=== PATIENT | female | born 1935 | race Caucasian/White ===

== ENCOUNTER → 2020-08-31 13:14 | Outpatient (BNVA) | payer MEDICARE, SELFPAY | PROVIDERS: PCP Internal Medicine; Visit Provider Orthopaedic Surgery | DX: M17.12 Unilateral primary osteoarthritis, left knee (principal) | CPT/HCPCS: 99212 ==

== ENCOUNTER 2020-09-30 11:03 | Outpatient (REF) | payer MEDICARE, SELFPAY ==
[2020-09-30 13:36] LABS: MANUAL DIFF FLAG NO
[2020-09-30 13:51] LABS: Basophils Absolute Auto 0.1 X10*3/uL (0.0-0.2); Basophils Percent Auto 0.6 % (0-2); Eosinophils Absolute Auto 0.4 X10*3/uL (0.0-0.4); Eosinophils Percent Auto 3.4 % (0-4); Hematocrit 31.9 % (37-47); Hemoglobin 8.6 g/dl (12.0-16.0); Imm Gran Abs Auto 0.05 X10*3/uL (0.00-0.03); Imm Gran Pct Auto 0.5 % (0.0-0.4); Lymphocytes Absolute Auto 1.7 X10*3/uL (1.2-4.9); Lymphocytes Percent Auto 15.6 % (20-40); Mean Corpuscular Hemoglobin 19.9 pg (27.0-33.0); Mean Corpuscular Volume 73.8 fL (80-98); Mean Platelet Volume 10.8 fL (9.4-12.3); Monocytes Absolute Auto 0.7 X10*3/uL (0.1-1.2); Monocytes Percent Auto 6.5 % (2-11); Neutrophils Absolute Auto 7.8 X10*3/uL (2.0-8.3); Neutrophils Percent Auto 73.4 % (45-73); Platelet Count 277 X10*3/uL (160-400); Red Blood Count 4.32 X10*6/uL (4.20-5.50); Red Cell Distribution Width 19.3 % (11.0-16.0); White Blood Count 10.6 X10*3/uL (4.8-10.8)
[2020-09-30 13:58] LABS: Estimated Average Glucose 111 mg/dL; Hemoglobin A1c % 5.5 %
[2020-09-30 14:05] LABS: Glucose Urine UA NEG (NEG); Leukocyte Esterase Urine TRACE (NEG); Nitrite Urine NEG (NEG); PH 6.5 (5.0-8.0); Specific Gravity - Urine 1.015 (1.005-1.025); UACC Culture Trigger YES; Urine Blood NEG (NEG); Urine Ketones NEG (NEG); Urine Protein 1+ MG/DL (NEG-TRACE)
[2020-09-30 14:23] LABS: Appearance Urine CLEAR; Color Urine YELLOW
[2020-09-30 14:35] LABS: Alanine Aminotransferase 10 U/L (0-31); Albumin Level 3.7 g/dL (3.5-5.0); Alkaline Phosphatase 81 U/L (39-117); Anion Gap 13 (12-20); Aspartate Amino Transferase 13 U/L (5-31); Bilirubin Total 0.6 mg/dL (0.0-1.0); Blood Urea Nitrogen 31 mg/dL (9-16); Calcium 9.4 mg/dL (8.4-10.2); Carbon Dioxide 29 mmol/L (22-29); Chloride 104 mmol/L (96-108); Cholesterol 145 mg/dL; Estimated Glomerular Filt Rate 50; Glucose Fasting 103 mg/dL (60-99); HDL Cholesterol 35 mg/dL; LDL Cholesterol Calculated 75 mg/dl; Potassium 4.6 mmol/L (3.3-5.1); Sodium 141 mmol/L (135-145); Total Protein 6.7 g/dL (6.5-8.0); Triglycerides 175 mg/dL
[2020-09-30 14:39] LABS: Free T4 (Free Thyroxine) 0.99 ng/dL (0.71-1.85); Thyroid Stimulating Hormone 4.13 uIU/mL (0.32-4.0); Vitamin D 25-OH Total 43.5 ng/mL (>30)
[2020-09-30 14:47] LABS: RBC Urine 0 /HPF (0); Renal Epithelial Cells Urine TRACE /LPF; Squamous Epithelial Cell Urine 1+ /LPF
== END 2020-09-30 11:04 | disposition home or self-care (01) ==
LOC: HO.10HDL 11:03
PROVIDERS: Visit Provider Internal Medicine
DX: I12.9 Hypertensive chronic kidney disease with stage 1 through stage 4 chronic kidney disease, or unspecified chronic kidney disease (principal); N18.30 Chronic kidney disease, stage 3 unspecified; E55.9 Vitamin D deficiency, unspecified; E03.9 Hypothyroidism, unspecified; D64.9 Anemia, unspecified; F17.200 Nicotine dependence, unspecified, uncomplicated; I25.10 Atherosclerotic heart disease of native coronary artery without angina pectoris; J30.9 Allergic rhinitis, unspecified; K21.9 Gastro-esophageal reflux disease without esophagitis; E78.00 Pure hypercholesterolemia, unspecified; R73.01 Impaired fasting glucose
CPT/HCPCS: 36415; 80053; 80061; 81001; 81003; 82306; 83036; 84439; 84443; 85025; 87086; 87147

== ENCOUNTER → 2020-10-10 15:22 | Outpatient (BNVA) | payer MEDICARE, SELFPAY | PROVIDERS: PCP Internal Medicine; Visit Provider Internal Medicine Cardiovascular Disease | DX: Z01.810 Encounter for preprocedural cardiovascular examination (principal); R09.89 Other specified symptoms and signs involving the circulatory and respiratory systems; I10 Essential (primary) hypertension; I25.10 Atherosclerotic heart disease of native coronary artery without angina pectoris; Z72.0 Tobacco use | CPT/HCPCS: 93005; 99202 ==

== ENCOUNTER → 2020-10-18 10:09 | Outpatient (REF) | payer MEDICARE, SELFPAY ==
--- NOTE | ~2020-10-18 | NM_ITS ---
Myocardial perfusion study Indication: Preoperative cardia vascular stratification Technique: The patient was brought in for a Lexiscan perfusion study on 10/18/2020. Patient performed low-level exercise and was injected 0.4 mg of Lexiscan intravenously. Within a minute of injection, 30 mCi of sestamibi was given intravenously. Images were obtained using the SPECT gamma camera interlaced with the gating device. Images were obtained in supine position. Resting perfusion study was performed on 10/19/2020. Patient was administered 30 mCi of sestamibi intravenously at rest. Images were then obtained in supine position. Images obtained with and without CT attenuation. Total DLP 79 mGy-cm. Images were processed with the software and compared side to side in short axis, horizontal long axis and vertical long axis views. Findings: The stress perfusion study showed non attenuated images show normal uptake of radiotracer in all segments of LV myocardium. Attenuation corrected images show minimally reduced uptake in the apex of the LV myocardium.. The gated study shows normal LV systolic function with calculated LVEF of 67%. LV cavity is normal size. The gated study shows normal systolic wall thickening and contraction of segments. Resting study shows no change in perfusion pattern compared to stress perfusion study. Gating at rest reveals normal systolic wall motion with ejection fraction at 61%. The findings are consistent with normal myocardial perfusion. NM/NM татьяна perf SPECT rest & str Impression: 1. Myocardial perfusion imaging study shows normal myocardial perfusion 2. Gated LVEF is 67% 3. Transient ischemic dilatation not present EKG is nondiagnostic for ischemia
--- NOTE | 2020-10-18 10:12 | CA_ITS ---
Acquisition Time: 2020-10-18 10:35:01 Total Exercise Time: 00:02:00 Test Indications: Screening for CAD Medications: Protocol: LEXISCAN Max HR: 080 BPM 59% of Pred: 135 BPM Max BP: 130/070 mmHG Max Work Load: 1.0 METS Pharmacological stress test using Lexiscan while sitting and kicking her feet. Pt tolerated well, however report to have thightness in her chest 2/10 5 min 23 sec in recovery . Sx reversed with Aminophyline 75 mg IV. EKG without arrhythmias, non-diagnostic for ischemia. Nuclear images to follow. Normotensive response to test. Test reviewed with Dr. Brothers Referred By: Walter Jason Overread By:
== END ==
LOC: HO.CARD 10:09
PROVIDERS: Visit Provider Internal Medicine Cardiovascular Disease
DX: Z01.810 Encounter for preprocedural cardiovascular examination (principal)
CPT/HCPCS: 78452; 93017; A9500; J0280; J2785

== ENCOUNTER 2020-10-19 12:15 | Outpatient (REF) | payer MEDICARE, SELFPAY ==
--- NOTE | ~2020-10-19 | US_ITS ---
EXAMINATION: US EXTRACRANIAL CAROTID DUPLEX, BILATERAL CLINICAL INFORMATION: Carotid bruit. COMPARISON: None TECHNIQUE: Real-time ultrasound and Doppler techniques (integrating B-mode 2-D vascular images, Doppler spectral analysis and color-flow Doppler imaging) were utilized to interrogate the extracranial carotid arteries, the vertebral arteries and proximal subclavian arteries bilaterally. The degree of stenosis is determined by criteria similar to NASCET. FINDINGS: Right Side: 1. There is hard atherosclerotic plaque seen in the bifurcation/proximal ICA region. There is mild tortuosity of common and internal carotid arteries. 2. The common carotid artery PSV proximally is 106 cm/s and distally 105 cm/s. 3. The proximal internal carotid artery velocities are 64.2 cm/s systolic and 16.5 cm/s diastolic. 4. The proximal external carotid artery PSV is 64.9 cm/s. 5. The vertebral artery shows 83.4 flow. 6. The subclavian artery waveforms are normal. Left Side: 1. There is hard atherosclerotic plaque seen in the bifurcation/proximal ICA region. There is mild tortuosity of common and internal carotid arteries. 2. The common carotid artery PSV proximally is 105 cm/s and distally 77.1 cm/s. 3. The proximal internal carotid artery velocities are 132 cm/s systolic and 21.7 cm/s diastolic. 4. The proximal external carotid artery PSV is 119 cm/s. 5. The vertebral artery shows antegrade flow. 6. The subclavian artery waveforms are normal. US/US carotid duplex BI IMPRESSION: 1. RIGHT: 0-49% range stenosis. 2. LEFT: 50-79% range stenosis. 3. There is normal antegrade flow seen in both vertebral arteries.
== END 2020-10-19 12:16 | disposition home or self-care (01) ==
LOC: HO.US 12:15
PROVIDERS: Visit Provider Internal Medicine Cardiovascular Disease
DX: R09.89 Other specified symptoms and signs involving the circulatory and respiratory systems (principal)
CPT/HCPCS: 93880

== ENCOUNTER → 2020-12-07 14:41 | Outpatient (BNVA) | payer MEDICARE, SELFPAY | PROVIDERS: PCP Internal Medicine; Visit Provider Internal Medicine Cardiovascular Disease | DX: Z01.810 Encounter for preprocedural cardiovascular examination (principal); I12.9 Hypertensive chronic kidney disease with stage 1 through stage 4 chronic kidney disease, or unspecified chronic kidney disease; N18.32 Chronic kidney disease, stage 3b; I25.10 Atherosclerotic heart disease of native coronary artery without angina pectoris; E78.00 Pure hypercholesterolemia, unspecified | CPT/HCPCS: 99212 ==

== ENCOUNTER 2020-12-16 10:35 | Outpatient (REF) | payer MEDICARE, SELFPAY ==
[2020-12-16 11:53] LABS: Basophils Absolute Auto 0.1 X10*3/uL (0.0-0.2); Imm Gran Abs Auto 0.04 X10*3/uL (0.00-0.03); Imm Gran Pct Auto 0.4 % (0.0-0.4); MANUAL DIFF FLAG SCAN; Mean Corpuscular Volume 84.8 fL (80-98); Red Cell Distribution Width 26.8 % (11.0-16.0); SCAN SMEAR FLAG 1
[2020-12-16 11:56] LABS: Basophils Percent Auto 0.4 % (0-2); Eosinophils Absolute Auto 0.3 X10*3/uL (0.0-0.4); Eosinophils Percent Auto 2.8 % (0-4); Hematocrit 41.8 % (37-47); Hemoglobin 11.7 g/dl (12.0-16.0); Lymphocytes Absolute Auto 1.5 X10*3/uL (1.2-4.9); Lymphocytes Percent Auto 13.6 % (20-40); Mean Corpuscular Hemoglobin 23.7 pg (27.0-33.0); Mean Platelet Volume 10.7 fL (9.4-12.3); Monocytes Absolute Auto 0.7 X10*3/uL (0.1-1.2); Monocytes Percent Auto 6.5 % (2-11); Neutrophils Absolute Auto 8.5 X10*3/uL (2.0-8.3); Neutrophils Percent Auto 76.3 % (45-73); Red Blood Count 4.93 X10*6/uL (4.20-5.50); White Blood Count 11.1 X10*3/uL (4.8-10.8)
[2020-12-16 11:58] LABS: PLT ABN DIST 1
[2020-12-16 12:23] LABS: SLIDE REVIEW VERIFIED
== END 2020-12-16 10:36 | disposition home or self-care (01) ==
LOC: HO.10HDL 10:35
PROVIDERS: Visit Provider Internal Medicine
DX: D50.8 Other iron deficiency anemias (principal)
CPT/HCPCS: 36415; 85025

== ENCOUNTER 2021-03-01 10:38 | Outpatient (REF) | payer MEDICARE, SELFPAY ==
[2021-03-01 13:37] LABS: Alanine Aminotransferase 10 U/L (0-31); Albumin Level 3.8 g/dL (3.5-5.0); Alkaline Phosphatase 72 U/L (39-117); Anion Gap 16 (12-20); Aspartate Amino Transferase 16 U/L (5-31); Bilirubin Total 0.4 mg/dL (0.0-1.0); Blood Urea Nitrogen 28 mg/dL (9-16); Calcium 10.2 mg/dL (8.4-10.2); Carbon Dioxide 29 mmol/L (22-29); Chloride 101 mmol/L (96-108); Estimated Glomerular Filt Rate 38; Glucose Random 120 mg/dL (60-115); Sodium 142 mmol/L (135-145)
== END 2021-03-01 10:39 | disposition home or self-care (01) ==
LOC: HO.10HDL 10:38
PROVIDERS: Visit Provider Internal Medicine
DX: N18.32 Chronic kidney disease, stage 3b (principal); I12.9 Hypertensive chronic kidney disease with stage 1 through stage 4 chronic kidney disease, or unspecified chronic kidney disease
CPT/HCPCS: 36415; 80053

== ENCOUNTER 2021-05-11 11:27 | Outpatient (REF) | payer MEDICARE, SELFPAY ==
[2021-05-11 14:19] LABS: MANUAL DIFF FLAG NO
[2021-05-11 14:22] LABS: Basophils Percent Auto 0.5 % (0-2); Eosinophils Absolute Auto 0.4 X10*3/uL (0.0-0.4); Eosinophils Percent Auto 4.3 % (0-4); Hematocrit 45.4 % (37-47); Hemoglobin 14.5 g/dl (12.0-16.0); Imm Gran Abs Auto 0.02 X10*3/uL (0.00-0.03); Imm Gran Pct Auto 0.2 % (0.0-0.4); Lymphocytes Absolute Auto 1.7 X10*3/uL (1.2-4.9); Lymphocytes Percent Auto 19.3 % (20-40); Mean Corpuscular HGB Conc 31.9 g/dl (31.0-35.0); Mean Corpuscular Hemoglobin 29.8 pg (27.0-33.0); Mean Corpuscular Volume 93.2 fL (80-98); Mean Platelet Volume 11.5 fL (9.4-12.3); Monocytes Absolute Auto 0.7 X10*3/uL (0.1-1.2); Monocytes Percent Auto 8.1 % (2-11); Neutrophils Percent Auto 67.6 % (45-73); Platelet Count 190 X10*3/uL (160-400); Red Blood Count 4.87 X10*6/uL (4.20-5.50); Red Cell Distribution Width 15.1 % (11.0-16.0); White Blood Count 8.8 X10*3/uL (4.8-10.8)
[2021-05-11 14:35] LABS: Estimated Average Glucose 108 mg/dL; Hemoglobin A1c % 5.4 %
[2021-05-11 14:41] LABS: Alanine Aminotransferase 16 U/L (0-31); Albumin Level 3.9 g/dL (3.5-5.0); Alkaline Phosphatase 66 U/L (39-117); Anion Gap 14 (12-20); Aspartate Amino Transferase 19 U/L (5-31); Bilirubin Total 0.6 mg/dL (0.0-1.0); Blood Urea Nitrogen 28 mg/dL (9-16); Calcium 10.6 mg/dL (8.4-10.2); Carbon Dioxide 30 mmol/L (22-29); Chloride 101 mmol/L (96-108); Cholesterol 165 mg/dL; Estimated Glomerular Filt Rate 44; Glucose Fasting 109 mg/dL (60-99); HDL Cholesterol 38 mg/dL; Iron 60 mcg/dL (30-160); LDL Cholesterol Calculated 77 mg/dl; Percent Iron Saturation 17 % (15-50); Potassium 4.2 mmol/L (3.3-5.1); Sodium 141 mmol/L (135-145); Total Iron Binding Capacity 350 mcg/dL (228-428); Total Protein 6.9 g/dL (6.5-8.0); Triglycerides 250 mg/dL; Unsaturated Iron Binding 290 ug/dL
[2021-05-11 15:03] LABS: Free T4 (Free Thyroxine) 0.89 ng/dL (0.71-1.85); Thyroid Stimulating Hormone 3.17 uIU/mL (0.32-4.0); Vitamin D 25-OH Total 44.2 ng/mL (>30)
[2021-05-11 15:04] LABS: TSH reflex Free T4 3.17 uIU/mL (0.32-4.0)
[2021-05-11 15:15] LABS: Appearance Urine CLEAR; Color Urine YELLOW; Glucose Urine UA NEG (NEG); Leukocyte Esterase Urine 1+ (NEG); Nitrite Urine NEG (NEG); UACC Culture Trigger YES; Urine Blood NEG (NEG); Urine Ketones NEG (NEG); Urine Protein 1+ MG/DL (NEG-TRACE)
[2021-05-11 16:43] LABS: RBC Urine 0 /HPF (0); Renal Epithelial Cells Urine 2+ /LPF; Squamous Epithelial Cell Urine 1+ /LPF
== END 2021-05-11 11:28 | disposition home or self-care (01) ==
LOC: HO.10HDL 11:27
PROVIDERS: Visit Provider Internal Medicine
DX: M17.12 Unilateral primary osteoarthritis, left knee (principal); E78.00 Pure hypercholesterolemia, unspecified; I25.10 Atherosclerotic heart disease of native coronary artery without angina pectoris; I12.9 Hypertensive chronic kidney disease with stage 1 through stage 4 chronic kidney disease, or unspecified chronic kidney disease; N18.32 Chronic kidney disease, stage 3b; R73.01 Impaired fasting glucose; F17.200 Nicotine dependence, unspecified, uncomplicated; K21.9 Gastro-esophageal reflux disease without esophagitis; E55.9 Vitamin D deficiency, unspecified; E66.9 Obesity, unspecified; R79.89 Other specified abnormal findings of blood chemistry; D50.9 Iron deficiency anemia, unspecified; Z71.6 Tobacco abuse counseling
CPT/HCPCS: 36415; 80053; 80061; 81001; 81003; 82306; 83036; 83540; 84439; 84443; 85025; 87086; 87147; 99212

== ENCOUNTER → 2021-06-07 13:29 | Outpatient (BNVA) | payer MEDICARE, SELFPAY | PROVIDERS: PCP Internal Medicine; Referring Provider Internal Medicine; Visit Provider Internal Medicine Cardiovascular Disease | DX: Z01.810 Encounter for preprocedural cardiovascular examination (principal); I25.10 Atherosclerotic heart disease of native coronary artery without angina pectoris; I12.9 Hypertensive chronic kidney disease with stage 1 through stage 4 chronic kidney disease, or unspecified chronic kidney disease; N18.32 Chronic kidney disease, stage 3b; R09.89 Other specified symptoms and signs involving the circulatory and respiratory systems; E78.00 Pure hypercholesterolemia, unspecified | CPT/HCPCS: 99212 ==

== ENCOUNTER → 2021-07-03 12:54 | Outpatient (BNVA) | payer MEDICARE, SELFPAY | PROVIDERS: PCP Internal Medicine; Visit Provider Orthopaedic Surgery | DX: Z01.812 Encounter for preprocedural laboratory examination (principal); Z01.810 Encounter for preprocedural cardiovascular examination ==

== ENCOUNTER 2021-07-04 10:56 | Outpatient (REF) | payer MEDICARE, SELFPAY ==
[2021-07-04 13:58] LABS: MANUAL DIFF FLAG NO
[2021-07-04 14:08] LABS: Basophils Absolute Auto 0.1 X10*3/uL (0.0-0.2); Basophils Percent Auto 0.6 % (0-2); Eosinophils Absolute Auto 0.4 X10*3/uL (0.0-0.4); Eosinophils Percent Auto 3.7 % (0-4); Hematocrit 48.2 % (37.0-47.0); Hemoglobin 15.4 g/dl (12.0-16.0); Imm Gran Abs Auto 0.02 X10*3/uL (0.00-0.03); Imm Gran Pct Auto 0.2 % (0.0-0.4); Lymphocytes Absolute Auto 1.9 X10*3/uL (1.2-4.9); Lymphocytes Percent Auto 18.1 % (20-40); Mean Corpuscular Hemoglobin 30.3 pg (27.0-33.0); Mean Corpuscular Volume 94.7 fL (80.0-98.0); Mean Platelet Volume 11.7 fL (9.4-12.3); Monocytes Absolute Auto 0.7 X10*3/uL (0.1-1.2); Monocytes Percent Auto 6.9 % (2-11); Neutrophils Absolute Auto 7.5 x10*3/uL (2.0-8.3); Neutrophils Percent Auto 70.5 % (45-73); Platelet Count 208 X10*3/uL (160-400); Red Blood Count 5.09 X10*6/uL (4.20-5.50); Red Cell Distribution Width 13.3 % (11.0-16.0); White Blood Count 10.6 X10*3/uL (4.8-10.8)
[2021-07-04 14:56] LABS: Anion Gap 11 (12-20); Blood Urea Nitrogen 27 mg/dL (9-16); Calcium 10.2 mg/dL (8.4-10.2); Carbon Dioxide 34 mmol/L (22-29); Chloride 99 mmol/L (96-108); Estimated Glomerular Filt Rate 41; Glucose Random 119 mg/dL (60-115); Sodium 140 mmol/L (135-145)
== END 2021-07-04 10:57 | disposition home or self-care (01) ==
LOC: HO.10HDL 10:56
PROVIDERS: Visit Provider Orthopaedic Surgery
DX: Z01.812 Encounter for preprocedural laboratory examination (principal)
CPT/HCPCS: 36415; 80048; 85025

== ENCOUNTER 2021-07-17 12:46 | Outpatient (RCR) | payer MEDICARE, SELFPAY | END 2021-09-05 07:30 | disposition home or self-care (01) | LOC: HO.PTWFD 12:46 | PROVIDERS: PCP Internal Medicine; Visit Provider Orthopaedic Surgery | DX: M17.12 Unilateral primary osteoarthritis, left knee (principal) | CPT/HCPCS: 97110; 97116; 97162 ==

== ENCOUNTER 2021-07-21 | Outpatient (REF) | payer MEDICARE, SELFPAY ==
--- NOTE | ~2021-07-21 | XR_ITS ---
EXAMINATION: XR CHEST CLINICAL INFORMATION: Dyspnea on exertion and wheezing COMPARISON: None TECHNIQUE: 2 views of the chest were obtained. FINDINGS: The patient appears slightly rotated to the left. The cardiac and mediastinal contours are normal. The lungs are clear. There is no pleural effusion or pneumothorax. There is mild curvature of the thoracic spine to the right. There are mild degenerative changes of the spine. XR/XR chest 2V IMPRESSION: No evidence for acute disease in chest.
[2021-07-21 12:12] VITALS: BP 143/63; PULSE 60; RESP 24; O2SAT 92; BMI 30.9
--- NOTE | 2021-07-21 12:36 | HO.ANESPROP2 ---
HPI - Anesthesia Eval Consult details Narrative: Surgery cx'd until further notice d/t respiratory status 85yo F for Left TKA Cardiac cleared and PCP cleared Wheezing and SOB at PAT, O2 = 92% RA, chronic cough. Long time smoker, No pulmo follow. [facility] Active Problems Active Problems: All Active Problems (Updated 07/10/21 @ 13:31 by AMELIA Silvestre-C) Primary osteoarthritis of left knee (Acute) Bronchitis (Acute) Preoperative cardiovascular examination (Acute) Carotid bruit (Acute) Tobacco abuse (Acute) Pre-op evaluation (Acute) Current smoker (Acute) Iron deficiency anemia (Acute) Obesity (BMI 30-39.9) (Acute) Smoker (Acute) Depression (Acute) Insomnia (Acute) Allergic rhinitis (Acute) Elevated TSH (Acute) GERD without esophagitis (Acute) Impaired fasting glucose (Acute) Anemia (Acute) Knee osteoarthritis (Acute) Vitamin D deficiency (Acute) Chronic kidney disease (CKD), stage III (moderate) (Acute) Pure hypercholesterolemia (Acute) Benign essential hypertension (Acute) Coronary artery disease (Acute) Past Medical History Medical History (Updated 07/10/21 @ 13:31 by AMELIA Silvestre-C) Allergic rhinitis Anemia Benign essential hypertension Chronic kidney disease (CKD), stage III (moderate) Coronary artery disease Depression Elevated TSH GERD without esophagitis Impaired fasting glucose Insomnia Iron deficiency anemia Knee osteoarthritis Obesity (BMI 30-39.9) Pure hypercholesterolemia Smoker Vitamin D deficiency Family History Family History Father Medical history unknown Mother CVD (cardiovascular disease) Family history of problems with anesthesia: No (Daughter with PONV) Surgical History Surgical History (Updated 07/21/21 @ 12:08 by Josette Atkinson RN) History of hysterectomy Hx of bilateral cataract extraction Hx of cardiac cath Hx of colonoscopy History of Problems with Anesthesia: No Social History Social History Housing: Condominium Are you a primary home care music therapist to a significant other at home: No Do you presently have visiting nurse or other home services: Yes (meals on wheels) Alcohol intake: never Patient Tobacco Use Status: Current everyday Tobacco user Tobacco use type: Cigarette Cigarettes Per Day: 10 Years Smoked: 70 e-Cigarette/Vaping Use: Never Used Second Hand Smoke Exposure: Yes service: No Current occupational status: retired and disabled Cognitive needs: Yes (cane/walker) Hearing needs: No Vision needs: No Narrative Narrative: No chest pain. SOB/SPENCE chronic. No recent exac Activity very limited. Meds Allergies Allergy/AdvReac Type Severity Reaction Status Date / Time atorvastatin AdvReac Unknown myalgias Verified 07/10/21 13:40 Home Medications Medication Instructions Recorded Confirmed Last Taken Type aspirin 81 mg tablet,delayed 81 mg PO DAILY 07/10/21 07/21/21 Unknown History release (Adult Low Dose Aspirin) acetaminophen 325 mg tablet 650 mg PO Q6H PRN 07/21/21 07/21/21 Unknown History cholecalciferol (vitamin D3) 25 25 mcg PO DAILY 07/21/21 07/21/21 Unknown History mcg (1,000 unit) capsule (Vitamin D3) iron-vitamin B complex 50 mg-0.4 tab PO 07/21/21 Unknown History mg tablet multivitamin with iron 1 tab PO DAILY 07/21/21 07/21/21 Unknown History omeprazole 20 mg capsule,delayed 20 mg PO DAILY PRN 07/21/21 07/21/21 Unknown History release zolpidem 10 mg tablet 5 mg PO BEDTIME PRN 07/21/21 07/21/21 Unknown History Exam Exam Date and Time: July 21, 2021 1236 Height,Weight and Vital Signs: Height 5 ft 6 in Weight 86.8 kg Last Vital Signs Pulse 60 07/21/21 12:12 Resp 24 H 07/21/21 12:12 BP 143/63 H 07/21/21 12:12 Pulse Ox 92 07/21/21 12:12 Airway Mallampati Class: II TM Dist: >3cm Neck ROM: Full Loose/Missing/Broken Teeth: Yes (Lower 1-2 missing) Heart: RRR Lungs: Inspiratory and Expiratory wheezes throughout Assessment and Plan Assessment Anesthesia Assessment: Anesthesia Plan Discussed, Smoking Cess. Discussed and PAT Visit Final Anesthetic Review Family History of Problems with Anesthesia: No (Daughter with PONV) History of Problems with Anesthesia: No
[2021-07-21 15:22] LABS: MRSA Nasal PCR NEGATIVE (Negative); SA Nasal PCR NEGATIVE (Negative)
== END 2021-07-21 00:01 ==
LOC: HO.PAT
PROVIDERS: Physician Assistant; PCP Internal Medicine; Visit Provider Orthopaedic Surgery
DX: Z53.09 Procedure and treatment not carried out because of other contraindication (principal); M17.12 Unilateral primary osteoarthritis, left knee; I10 Essential (primary) hypertension; D50.9 Iron deficiency anemia, unspecified; F17.210 Nicotine dependence, cigarettes, uncomplicated
CPT/HCPCS: 71046; 86850; 86900; 86901; 87640; 87641

== ENCOUNTER 2021-10-05 10:54 | Outpatient (REF) | payer MEDICARE, SELFPAY ==
[2021-10-05 13:57] LABS: MANUAL DIFF FLAG NO
[2021-10-05 14:05] LABS: Basophils Percent Auto 0.3 % (0-2); Eosinophils Absolute Auto 0.3 X10*3/uL (0.0-0.4); Eosinophils Percent Auto 3.9 % (0-4); Hematocrit 46.1 % (37.0-47.0); Hemoglobin 15.2 g/dl (12.0-16.0); Imm Gran Abs Auto 0.03 X10*3/uL (0.00-0.03); Imm Gran Pct Auto 0.3 % (0.0-0.4); Lymphocytes Absolute Auto 1.8 X10*3/uL (1.2-4.9); Lymphocytes Percent Auto 20.5 % (20-40); Mean Corpuscular Hemoglobin 31.3 pg (27.0-33.0); Mean Corpuscular Volume 94.9 fL (80.0-98.0); Mean Platelet Volume 11.6 fL (9.4-12.3); Monocytes Absolute Auto 0.7 X10*3/uL (0.1-1.2); Monocytes Percent Auto 7.7 % (2-11); Neutrophils Absolute Auto 5.9 x10*3/uL (2.0-8.3); Neutrophils Percent Auto 67.3 % (45-73); Platelet Count 185 X10*3/uL (160-400); Red Blood Count 4.86 X10*6/uL (4.20-5.50); Red Cell Distribution Width 14.2 % (11.0-16.0); White Blood Count 8.8 X10*3/uL (4.8-10.8)
[2021-10-05 14:12] LABS: Estimated Average Glucose 117 mg/dL; Hemoglobin A1c % 5.7 %
[2021-10-05 14:14] LABS: Alanine Aminotransferase 15 U/L (0-31); Alkaline Phosphatase 61 U/L (39-117); Anion Gap 13 (12-20); Aspartate Amino Transferase 19 U/L (5-31); Bilirubin Total 0.6 mg/dL (0.0-1.0); Blood Urea Nitrogen 25 mg/dL (9-16); C Reactive Protein 0.19 mg/dL (< or = 0.50); Calcium 10.4 mg/dL (8.4-10.2); Carbon Dioxide 31 mmol/L (22-29); Chloride 102 mmol/L (96-108); Cholesterol 195 mg/dL; Estimated Glomerular Filt Rate 43; Glucose Fasting 103 mg/dL (60-99); HDL Cholesterol 37 mg/dL; LDL Cholesterol Calculated 99 mg/dl; Potassium 3.8 mmol/L (3.3-5.1); Sodium 142 mmol/L (135-145); Total Protein 6.8 g/dL (6.5-8.0); Triglycerides 296 mg/dL
[2021-10-05 14:29] LABS: B Type Natriuretic Peptide 134 pg/mL (<100)
[2021-10-05 14:37] LABS: Free T4 (Free Thyroxine) 0.85 ng/dL (0.71-1.85); Thyroid Stimulating Hormone 3.06 uIU/mL (0.32-4.0); Vitamin D 25-OH Total 61.8 ng/mL (>30)
[2021-10-05 15:01] LABS: Erythrocyte Sedimentation Rate 16 MM/HR (0-20)
== END 2021-10-05 10:55 | disposition home or self-care (01) ==
LOC: HO.10HDL 10:54
PROVIDERS: Visit Provider Internal Medicine
DX: E03.9 Hypothyroidism, unspecified (principal); I10 Essential (primary) hypertension; R60.9 Edema, unspecified; E55.9 Vitamin D deficiency, unspecified; R73.01 Impaired fasting glucose; E78.00 Pure hypercholesterolemia, unspecified
CPT/HCPCS: 36415; 80053; 80061; 82306; 83036; 83880; 84439; 84443; 85025; 85652; 86140

== ENCOUNTER → 2021-11-09 11:23 | Outpatient (BNVA) | payer MEDICARE, SELFPAY | PROVIDERS: PCP Internal Medicine; Visit Provider Orthopaedic Surgery | DX: M17.12 Unilateral primary osteoarthritis, left knee (principal) | CPT/HCPCS: 99212 ==

== ENCOUNTER → 2021-12-06 13:25 | Outpatient (BNVA) | payer MEDICARE, SELFPAY | PROVIDERS: PCP Internal Medicine; Visit Provider Internal Medicine | DX: J98.4 Other disorders of lung (principal); E66.9 Obesity, unspecified; F17.210 Nicotine dependence, cigarettes, uncomplicated; Z68.31 Body mass index [BMI] 31.0-31.9, adult; Z71.6 Tobacco abuse counseling | CPT/HCPCS: 94010; 99202 ==

== ENCOUNTER → 2022-01-18 12:19 | Outpatient (REF) | payer MEDICARE, SELFPAY ==
--- NOTE | 2022-01-18 12:26 | ECG_ITS ---
Test Reason : z01.88 Blood Pressure : / mmHG Vent. Rate : 079 BPM Atrial Rate : 079 BPM P-R Int : 176 ms QRS Dur : 076 ms QT Int : 396 ms P-R-T Axes : 072 033 056 degrees QTc Int : 454 ms Normal sinus rhythm Normal ECG When compared with ECG of 21-NOV-2004 06:23, T wave inversion no longer evident in Inferior leads T wave inversion no longer evident in Anterolateral leads Referred By: Irving Meneses Electronically Signed By:ESTHER FUENTES MD
[2022-01-18 12:44] LABS: MANUAL DIFF FLAG NO
[2022-01-18 13:29] LABS: Basophils Absolute Auto 0.1 X10*3/uL (0.0-0.2); Basophils Percent Auto 0.6 % (0-2); Eosinophils Absolute Auto 0.5 X10*3/uL (0.0-0.4); Eosinophils Percent Auto 4.8 % (0-4); Hematocrit 47.3 % (37.0-47.0); Hemoglobin 15.4 g/dl (12.0-16.0); Imm Gran Abs Auto 0.03 X10*3/uL (0.00-0.03); Imm Gran Pct Auto 0.3 % (0.0-0.4); Lymphocytes Absolute Auto 2.4 X10*3/uL (1.2-4.9); Lymphocytes Percent Auto 24.4 % (20-40); Mean Corpuscular HGB Conc 32.6 g/dl (31.0-35.0); Mean Corpuscular Hemoglobin 30.6 pg (27.0-33.0); Mean Platelet Volume 11.4 fL (9.4-12.3); Monocytes Absolute Auto 0.8 X10*3/uL (0.1-1.2); Neutrophils Percent Auto 61.9 % (45-73); Platelet Count 214 X10*3/uL (160-400); Red Blood Count 5.03 X10*6/uL (4.20-5.50); Red Cell Distribution Width 13.1 % (11.0-16.0); White Blood Count 9.7 X10*3/uL (4.8-10.8)
[2022-01-18 13:34] LABS: Prothrombin Time 11.2 SEC (9.9-13.0)
[2022-01-18 13:36] LABS: Partial Thromboplastin Time 32.9 SEC (24.1-38.0)
[2022-01-18 13:48] LABS: Appearance Urine CLEAR; Color Urine YELLOW; Glucose Urine UA NEG (NEG); Leukocyte Esterase Urine 1+ (NEG); Nitrite Urine NEG (NEG); PH 5.5 (5.0-8.0); Specific Gravity - Urine 1.015 (1.005-1.025); UACC Culture Trigger YES; Urine Blood NEG (NEG); Urine Ketones NEG (NEG); Urine Protein 1+ MG/DL (NEG-TRACE)
[2022-01-18 13:53] LABS: Estimated Average Glucose 117 mg/dL; Hemoglobin A1c % 5.7 %
[2022-01-18 14:06] LABS: Alanine Aminotransferase 19 U/L (0-31); Albumin Level 4.1 g/dL (3.5-5.0); Alkaline Phosphatase 66 U/L (39-117); Anion Gap 16 (12-20); Aspartate Amino Transferase 24 U/L (5-31); Bilirubin Total 0.6 mg/dL (0.0-1.0); Blood Urea Nitrogen 27 mg/dL (9-16); Calcium 10.8 mg/dL (8.4-10.2); Carbon Dioxide 28 mmol/L (22-29); Chloride 101 mmol/L (96-108); Cholesterol 202 mg/dL; Estimated Glomerular Filt Rate 42; Glucose Random 109 mg/dL (60-115); HDL Cholesterol 36 mg/dL; LDL Cholesterol Calculated 95 mg/dl; Potassium 3.8 mmol/L (3.3-5.1); Sodium 141 mmol/L (135-145); Total Protein 7.1 g/dL (6.5-8.0); Triglycerides 356 mg/dL
[2022-01-18 14:14] LABS: TSH reflex Free T4 4.28 uIU/mL (0.32-4.0); Vitamin D 25-OH Total 62.7 ng/mL (>30)
[2022-01-18 14:16] LABS: RBC Urine 0 /HPF (0); Renal Epithelial Cells Urine 3+ /LPF; Squamous Epithelial Cell Urine 1+ /LPF
[2022-01-18 14:46] LABS: Free T4 (Free Thyroxine) 0.91 ng/dL (0.71-1.85)
== END ==
LOC: HO.CARD 12:19
PROVIDERS: PCP Internal Medicine; Visit Provider Internal Medicine
DX: Z01.818 Encounter for other preprocedural examination (principal); E55.9 Vitamin D deficiency, unspecified; E78.00 Pure hypercholesterolemia, unspecified; I10 Essential (primary) hypertension; R73.01 Impaired fasting glucose; R82.998 Other abnormal findings in urine; R30.0 Dysuria; Z96.659 Presence of unspecified artificial knee joint
CPT/HCPCS: 36415; 80053; 80061; 81001; 82306; 83036; 84439; 84443; 85025; 85610; 85730; 87086; 93005

== ENCOUNTER → 2022-02-01 11:06 | Outpatient (BNVA) | payer MEDICARE, SELFPAY | PROVIDERS: PCP Internal Medicine; Visit Provider Physician Assistant | DX: Z01.818 Encounter for other preprocedural examination (principal); M17.12 Unilateral primary osteoarthritis, left knee | CPT/HCPCS: 99212 ==

== ENCOUNTER 2022-02-06 06:08 | Inpatient (IN) | payer MEDICARE, SELFPAY ==
--- NOTE | 2022-02-01 12:02 | P.CONAN_ITS ---
Documented by User: Vanessa Rosales NP 02/01/22 12:29 HPI - Anesthesia Eval Consult details Narrative: 86yo F for Left Knee Replacement Total PCP cleared Pulmo cleared FROM PULMONARY POINT OF VIEW PATIENT IS CLEARED FOR HIS SURGERY. SHE SHOULD TRY TO CUT DOWN ON SMOKING, AND DO DEEP BREATHING EXERCISES IN PREPARATION FOR THE SURGERY. Cardiac cleared PMF Active Problems Active Problems: All Active Problems (Updated 02/01/22 @ 11:57 by Sandra Barbour RN) Coronary artery disease (Acute) Benign essential hypertension (Acute) Pure hypercholesterolemia (Acute) Chronic kidney disease (CKD), stage III (moderate) (Acute) Vitamin D deficiency (Acute) Knee osteoarthritis (Acute) Anemia (Acute) Impaired fasting glucose (Acute) GERD without esophagitis (Acute) Elevated TSH (Acute) Allergic rhinitis (Acute) Insomnia (Acute) Depression (Acute) Smoker (Acute) Obesity (BMI 30-39.9) (Acute) Primary osteoarthritis of left knee (Acute) Bronchitis (Acute) Preoperative cardiovascular examination (Acute) Carotid bruit (Acute) Tobacco abuse (Acute) Iron deficiency anemia (Acute) Pre-op evaluation (Acute) Current smoker (Acute) Edema (Acute) Restrictive lung disease (Acute) Pre-operative exam (Acute) Osteoarthritis of left knee (Acute) Past Medical History Medical History Allergic rhinitis Anemia Benign essential hypertension Carotid bruit Chronic kidney disease (CKD), stage III (moderate) Coronary artery disease COVID-19 vaccine administered Current smoker Depression Edema Elevated TSH GERD without esophagitis History of COVID-19 Impaired fasting glucose Insomnia Obesity (BMI 30-39.9) Pure hypercholesterolemia Restrictive lung disease Tobacco abuse Vitamin D deficiency Family History Family History Father Medical history unknown Mother CVD (cardiovascular disease) Family history of problems with anesthesia: No (Daughter with PONV) Surgical History Surgical History History of hysterectomy Hx of bilateral cataract extraction Hx of cardiac cath Hx of colonoscopy History of Problems with Anesthesia: No Social History Social History Household Members Other:: daughter & grandsons Housing: Condominium Are you a primary field care coordinator to a significant other at home: No Do you presently have visiting nurse or other home services: Yes (Meals on Wheels) Alcohol intake: never Patient Tobacco Use Status: Current everyday Tobacco user Tobacco use type: Cigarette Cigarettes Per Day: 10 Years Smoked: 70 Smoked in Last 30 Days: Yes e-Cigarette/Vaping Use: Never Used Second Hand Smoke Exposure: Yes Use of substances other than those prescribed or required for medical reasons: No Have you been hit, kicked, punched, or otherwise hurt by someone within the past year? If so, by whom?: No Are you DNR?: No Advance Directives: No Advance Directives Information Provided: Yes (brochure given) Advance Directives on File: No Recently lost weight without trying: No Eating poorly because of decreased appetite: No Nutrition Risks: Surgical patient >75years Poor oral hygiene: No (broken tooth-left lower-lost filling) service: No Current occupational status: retired and disabled Cognitive needs: No (cane/walker) Hearing needs: No Vision needs: No Narrative Narrative: No recent illness Activity limited to knee pain. Underlying pulmo ds. Meds Allergies Allergy/AdvReac Type Severity Reaction Status Date / Time atorvastatin AdvReac Intermediate myalgias Verified 02/01/22 12:02 Home Medications Medication Instructions Recorded Confirmed Last Taken Type aspirin 81 mg tablet,delayed 81 mg PO DAILY 07/10/21 01/31/22 Unknown History release (Adult Low Dose Aspirin) acetaminophen 325 mg tablet 650 mg PO Q6H PRN Pain 07/21/21 01/31/22 Unknown History cholecalciferol (vitamin D3) 25 25 mcg PO DAILY 07/21/21 01/31/22 Unknown History mcg (1,000 unit) capsule (Vitamin D3) multivitamin with iron 1 tab PO DAILY 07/21/21 01/31/22 Unknown History albuterol sulfate 90 mcg/actuation 2 puff inhalation Q6H PRN 12/06/21 01/31/22 Unknown History aerosol inhaler Shortness Of Breath Exam Exam Date and Time: February 01, 2022 1202 Height,Weight and Vital Signs: Height 5 ft 6 in Weight 87.6 kg Vital Signs Pulse Rate 79 02/01/22 12:03 Respiratory Rate 20 02/01/22 12:03 Blood Pressure 163/71 H 02/01/22 12:03 Pulse Oximetry 95 02/01/22 12:03 Oxygen Delivery Method 02/01/22 12:03 Pertinent Lab Results Pertinent Lab Results: Laboratory Tests 01/18/22 01/18/22 12:43 12:43 WBC 9.7 Hgb 15.4 Hct 47.3 H Plt Count 214 Sodium 141 Potassium 3.8 Chloride 101 Carbon Dioxide 28 BUN 27 H Creatinine 1.22 Narrative Narrative: EKG 01/2022 Vent. Rate : 079 BPM ? ? Atrial Rate : 079 BPM ?? P-R Int : 176 ms? QRS Dur : 076 ms ? ? QT Int : 396 ms ? ? ? P-R-T Axes : 072 033 056 degrees ?? QTc Int : 454 ms ? Normal sinus rhythm Normal ECG When compared with ECG of 21-NOV-2004 06:23, T wave inversion no longer evident in Inferior leads T wave inversion no longer evident in Anterolateral leads NM татьяна perf SPECT rest & str 10/2020 Impression: ? 1.? Myocardial perfusion imaging study shows normal myocardial perfusion 2.? Gated LVEF is 67% 3. Transient ischemic dilatation not present ? EKG is nondiagnostic for ischemia US carotid duplex BI 10/2020 IMPRESSION: 1. RIGHT: 0-49% range stenosis. ? 2. LEFT: 50-79% range stenosis. ? 3. There is normal antegrade flow seen in both vertebral arteries. Airway Mallampati Class: II TM Dist: >3cm Neck ROM: Full Loose/Missing/Broken Teeth: Yes (Missing throughout. Left lower broken) Heart: RRR Lungs: CTAB Assessment and Plan Assessment Anesthesia Assessment: Anesthesia Plan Discussed, Smoking Cess. Discussed and PAT Visit Final Anesthetic Review Family History of Problems with Anesthesia: No (Daughter with PONV) History of Problems with Anesthesia: No Documented by User: Archie Holliday MD 02/06/22 09:01 [facility] Past Medical History Medical History Allergic rhinitis Anemia Benign essential hypertension Carotid bruit Chronic kidney disease (CKD), stage III (moderate) Coronary artery disease COVID-19 vaccine administered Current smoker Depression Edema Elevated TSH GERD without esophagitis History of COVID-19 Impaired fasting glucose Insomnia Obesity (BMI 30-39.9) Pure hypercholesterolemia Restrictive lung disease Tobacco abuse Vitamin D deficiency Family History Family History Father Medical history unknown Mother CVD (cardiovascular disease) Surgical History Surgical History History of hysterectomy Hx of bilateral cataract extraction Hx of cardiac cath Hx of colonoscopy Social History Social History Household Members Other:: daughter & grandsons [facility] Are you a primary field care coordinator to a significant other at home: No Do you presently have visiting nurse or other home services: Yes (Meals on Wheels) Alcohol intake: never Patient Tobacco Use Status: Current everyday Tobacco user Tobacco use type: Cigarette Cigarettes Per Day: 10 Years Smoked: 70 Smoked in Last 30 Days: Yes e-Cigarette/Vaping Use: Never Used Second Hand Smoke Exposure: Yes Use of substances other than those prescribed or required for medical reasons: No Have you been hit, kicked, punched, or otherwise hurt by someone within the past year? If so, by whom?: No Are you DNR?: No Advance Directives: No Advance Directives Information Provided: Yes (brochure given) Advance Directives on File: No Recently lost weight without trying: No Eating poorly because of decreased appetite: No Nutrition Risks: Surgical patient >75years Poor oral hygiene: No (broken tooth-left lower-lost filling) service: No Current occupational status: retired and disabled Cognitive needs: No (cane/walker) Hearing needs: No Vision needs: No Meds Allergies Allergy/AdvReac Type Severity Reaction Status Date / Time atorvastatin AdvReac Intermediate myalgias Verified 02/01/22 12:02 Home Medications Medication Instructions Recorded Confirmed Last Taken Type aspirin 81 mg tablet,delayed 81 mg PO DAILY 07/10/21 01/31/22 Unknown History release (Adult Low Dose Aspirin) acetaminophen 325 mg tablet 650 mg PO Q6H PRN Pain 07/21/21 01/31/22 Unknown History cholecalciferol (vitamin D3) 25 25 mcg PO DAILY 07/21/21 01/31/22 Unknown History mcg (1,000 unit) capsule (Vitamin D3) multivitamin with iron 1 tab PO DAILY 07/21/21 01/31/22 Unknown History albuterol sulfate 90 mcg/actuation 2 puff inhalation Q6H PRN 12/06/21 01/31/22 Unknown History aerosol inhaler Shortness Of Breath Assessment and Plan Final Anesthetic Review NPO: Yes ASA Class: III Final Preanesthetic Review: No Changes in Pt Med Stat, Meds/Allgs Chart Reviewed, Consent Obtained/Reviewed and Anes Risks/Benef Reviewed Patient Risk: Intermediate Procedure Risk: Low Anesthetic Plan Anesthetic Plan: MAC:, Spinal and Regional Block Disposition: Standard PACU
[2022-02-01 12:03] VITALS: BP 163/71; PULSE 79; RESP 20; O2SAT 95; BMI 31.1
[2022-02-01 14:02] LABS: MRSA Nasal PCR NEGATIVE (Negative); SA Nasal PCR NEGATIVE (Negative)
[2022-02-06] VITALS (18 sets, daily range): BP systolic 100–191; BP diastolic 37–93; PULSE 55–75; RESP 15–20; TEMP 36–37.1; O2SAT 92–98
--- NOTE | ~2022-02-06 | XR_ITS ---
EXAMINATION: XR KNEE, LEFT CLINICAL INFORMATION: Knee replacement COMPARISON: Previous x-ray March 2020 TECHNIQUE: Four views of the left knee. FINDINGS: There is a new 3 component left knee replacement in satisfactory position. No fracture or dislocation is seen. There are postoperative changes to the soft tissues. XR/XR knee LT 2V IMPRESSION: Satisfactory appearance of left knee replacement.
[2022-02-06 06:37] LABS: Hematocrit 44.9 % (37.0-47.0); Hemoglobin 14.9 g/dl (12.0-16.0)
[2022-02-06 06:43] LABS: COVID-19 Test Negative (Negative); IDNOW Serial# 08D9AD1C
[2022-02-06] MEDS: Lactated Ringers 1,000 ML 100 ML IVCONT ×3 (06:46→21:50)
--- NOTE | 2022-02-06 06:58 | PC.NURSE ---
slight crackles in right lower base. audible wheezes while patient was dressing/transferring only. prn ventolin given by respiratory at 0700
[2022-02-06] MEDS: Albuterol Sulfate (0.083%) 2.5 MG/3 ML VIAL.NEB INHALE (06:59)
--- NOTE | 2022-02-06 07:08 | PHA.MEDREC ---
Pharmacy Consult ? Medication Reconciliation Pharmacy has reviewed the medication reconciliation completed by nursing.
--- NOTE | 2022-02-06 07:37 | MHC.SHP ---
Pre-Procedural Eval Section A Date of Service: 02/06/22 The patient is an INPATIENT: No Changes since office visit: Yes Patient answered all questions; No Cold of Flu in the past 2 weeks, No New Medical Problems and No Changes in Medication The History & Physical has been completed within 30 days and I have reviewed it.: Yes Section B Chief Complaint: LTKA Allergies: Allergies Allergy/AdvReac Type Severity Reaction Status Date / Time atorvastatin AdvReac Intermediate myalgias Verified 02/01/22 12:02 Plan I have reviewed the history and physical and performed a pertinent physical examination on my patient. No changes have occurred unless specified.
--- NOTE | 2022-02-06 09:08 | P.BOP_ITS ---
Brief Operative Note Date of Service: 02/06/22 Pre-op diagnosis: left knee OA Post-op diagnosis: same Procedure: Left TKA Implants: [place] Tri[employer]alon cruciate retaining press fit 10/19/10 Surgeon: Abdelrahman Nicole MD Anesthesia: regional and spinal Was an Micromatic Hone Operator used for this Procedure?: Yes Micromatic Hone Operator: Brandon Ruth Estimated blood loss (mL): 100 IV fluids (mL): 700 Pathology: other Condition: stable Disposition: PACU
--- NOTE | 2022-02-06 09:33 | P.OP_ITS ---
Operative Note Operative Note Date of Service: 02/06/22 Narrative: Date of Service: 02/06/22 Pre-op diagnosis: left knee OA Post-op diagnosis: same Procedure: Left TKA Implants: [place] Tri[employer]on cruciate retaining press fit 10/19/10 Surgeon: Abdelrahman Nicole MD Anesthesia: regional and spinal Was an Technical Maintenance Specialist used for this Procedure?: Yes Technical Maintenance Specialist: Brandon Ruth Estimated blood loss (mL): 100 IV fluids (mL): 700 Pathology: other Condition: stable Disposition: PACU Procedure in detail: The patient was brought to the operating room and prepped and draped in standard sterile fashion. A time-out was called to identify proper site proper procedure proper surgeon and IV antibiotics were administered. 1 g of IV tranexamic acid was administered. I began by making a midline incision to the retinaculum and performed a medial parapatellar arthrotomy. The patella was translated laterally and the knee was flexed up. The medial compartment was eburnated and the tibial plateau was as well . I performed a small medial peel and resected the infrapatellar fat pad. Weakley's line was then used to drill my intramedullary femoral guide and my distal femur cut of 10 mm was made in 5 degrees of valgus while protecting the soft tissues. I then measured a # 3 femur and placed my cutting guide and made my anterior posterior and chamfer cuts protecting the soft tissues at all times. Once I was satisfied with my cuts I turned my attention to the tibia. I removed the meniscus medially and laterally and , using an external cutting guide, in line with the tibial crest and the third ray, I made my distal tibial cut in 3 deg slope of while protecting the PCL the posterior soft tissues at all times. An extension block was used to confirm appropriate amount of bony resection. I then sized a #3 tibia and once I was satisfied that there was complete tibial coverage I placed my trial and with the trial femur in place took the knee through range of motion. I was satisfied with the extension and flexion as well as the stability and balance at 0, 30 and 90 degrees. I then turned my attention to the patella where I removed 1 cm from the undersurface of the patella and then trialed a 29a patellar button. Again the knee was taken through range of motion I was satisfied with the tracking. I then returned to the femur and drilled my femoral lug holes and prepared the tibia. A femoral bone plug was placed and the knee was irrigated copiously. I then press fit the patella, tibia and femur in standard fashion. I trialed different inserts until I selected a #11 insert. The final insert was placed and a 3 minutes iodine soak with local TXA was performed. A Werewolf cautery wand was used to maintain hemostasis over the capsule and meniscal beds, the gutters and peripatellar soft tissues. The knee was then closed with a running Quill suture, a 3 0 Vicryl and farideh on the skin. Patient was then placed in sterile dressing and brought to recovery room in stable condition there were no known complications.
[2022-02-06] MEDS: Acetaminophen 325 MG TABLET 650 MG PO (11:32)
[2022-02-06] MEDS: oxyCODONE HCl Immed Release 5 MG TABLET PO ×3 (12:21→20:44)
--- NOTE | 2022-02-06 12:49 | PC.NURSE ---
Pt okayed talking to secondary contact Gianna (daughter) to give an update.
--- NOTE | 2022-02-06 13:46 | PM.IMCN ---
History of Present Illness Data of Consult Service Date: 02/06/22 Primary Care Provider: Irving Meneses MD HPI Reason for consult: Hypertension An 86 years old lady with PMH of HTN, CKD 3, CAD, GERD among others who presents to the hospital for elective left total knee arthroplasty. The patient was seen after surgery as her blood pressure was noted to elevated around 190/80. She reports feeling generally good and having some pain after surgery at this point. Denies any fever, chills, chest pain, shortness of breath, change in bowel habit, nausea, vomiting or urinary symptoms. Hospitalist team were asked to evaluate the patient for medical problems. Review of Systems Review of Systems: No fever, chills or weakness No chest pain, palpitation No shortness of breath or coughing No abdominal pain, nausea or vomiting No urinary symptoms No any rash or wounds Knee pain after surgery PMFSH Medical History Allergic rhinitis Anemia Benign essential hypertension Carotid bruit Chronic kidney disease (CKD), stage III (moderate) Coronary artery disease COVID-19 vaccine administered Current smoker Depression Edema Elevated TSH GERD without esophagitis History of COVID-19 Impaired fasting glucose Insomnia Obesity (BMI 30-39.9) Pure hypercholesterolemia Restrictive lung disease Tobacco abuse Vitamin D deficiency Family History Father Medical history unknown Mother CVD (cardiovascular disease) Surgical History History of hysterectomy Hx of bilateral cataract extraction Hx of cardiac cath Hx of colonoscopy Social History Household Members Other:: daughter & grandsons Housing: Condominium Are you a primary child care cook to a significant other at home: No Do you presently have visiting nurse or other home services: Yes (Meals on Wheels) Alcohol intake: never Patient Tobacco Use Status: Current everyday Tobacco user Tobacco use type: Cigarette Cigarettes Per Day: 10 Years Smoked: 70 Smoked in Last 30 Days: Yes e-Cigarette/Vaping Use: Never Used Second Hand Smoke Exposure: Yes Use of substances other than those prescribed or required for medical reasons: No Have you been hit, kicked, punched, or otherwise hurt by someone within the past year? If so, by whom?: No Are you DNR?: No Advance Directives: No Advance Directives Information Provided: Yes (brochure given) Advance Directives on File: No Recently lost weight without trying: No Eating poorly because of decreased appetite: No Nutrition Risks: Surgical patient >75years Poor oral hygiene: No (broken tooth-left lower-lost filling) service: No Current occupational status: retired and disabled Cognitive needs: No (cane/walker) Hearing needs: No Vision needs: No Meds Allergies Allergy/AdvReac Type Severity Reaction Status Date / Time atorvastatin AdvReac Intermediate myalgias Verified 02/01/22 12:02 Active Medications: Current Medications Acetaminophen (Acetaminophen 325 Mg Tablet) 650 mg PO Q6H PRN PRN Reason: Pain, Mild (Pain Scale 1-3) Last Admin: 02/06/22 11:32 Dose: 650 mg Acetaminophen (Acetaminophen 325 Mg Tablet) 650 mg PO ONCE PRN PRN Reason: Pain, Mild (Pain Scale 1-3) Albuterol Sulfate (Albuterol Sulfate 90 Mcg 8 Gm Inhaler) 2 puff INHALE Q6H PRN PRN Reason: Shortness Of Breath Amlodipine Besylate (Amlodipine Besylate 10 Mg Tablet) 10 mg PO DAILY TIARA; Protocol Celecoxib (Celecoxib 200 Mg Capsule) 200 mg PO BID TIARA Docusate Sodium (Docusate Sodium 100 Mg Capsule) 100 mg PO BID [facility] Enoxaparin Sodium (Enoxaparin Sodium 40 Mg/0.4 Ml Syringe) 40 mg SUBCUT Q24H TIARA Hydromorphone HCl (Hydromorphone Hcl 0.5 Mg/0.5 Ml Syringe) 0.25 mg IVPUSH Q5M PRN; Protocol PRN Reason: Pain, Severe (Pain Scale 7-10) Hydromorphone HCl (Hydromorphone Hcl 0.5 Mg/0.5 Ml Syringe) 0.25 mg IVPUSH Q4H PRN; Protocol PRN Reason: Pain, Severe (Pain Scale 7-10) Lactated Ringer's (Lr) 1,000 mls @ 100 mls/hr IVCONT .Q10H TIARA Last Admin: 02/06/22 09:57 Dose: 100 mls/hr Cefazolin Sodium/Dextrose (Ancef) 2 gm in 50 mls @ 100 mls/hr IV POSTOP TIARA Metoprolol Tartrate (Metoprolol Tartrate 100 Mg Tablet) 100 mg PO BID [facility]; Protocol Omeprazole (Omeprazole 20 Mg Capsule.Dr) 20 mg PO DAILY@0630 [facility] Ondansetron HCl (Ondansetron Hcl 4 Mg/2 Ml Vial) 4 mg IVPUSH ONCE PRN PRN Reason: Nausea and Vomiting Ondansetron HCl (Ondansetron Hcl 4 Mg/2 Ml Vial) 4 mg IVPUSH Q8H PRN PRN Reason: Nausea and Vomiting Oxycodone HCl (Oxycodone Hcl Immed Release 5 Mg Tablet) 5 mg PO Q4H PRN PRN Reason: Pain, Moderate (Pain Scale 4-6 Last Admin: 02/06/22 12:21 Dose: 5 mg Oxycodone HCl (Oxycodone Hcl Immed Release 5 Mg Tablet) 5 mg PO ONCE PRN PRN Reason: Pain, Severe (Pain Scale 7-10) Sodium Chloride (0.9 % Sodium Chloride Flush 3 Ml Syringe) 3 ml IVFLUSH QSHIFT [facility] Home Medications Medication Instructions Recorded Confirmed Last Taken Type aspirin 81 mg tablet,delayed 81 mg PO DAILY 07/10/21 01/31/22 Unknown History release (Adult Low Dose Aspirin) acetaminophen 325 mg tablet 650 mg PO Q6H PRN Pain 07/21/21 01/31/22 Unknown History cholecalciferol (vitamin D3) 25 25 mcg PO DAILY 07/21/21 01/31/22 Unknown History mcg (1,000 unit) capsule (Vitamin D3) multivitamin with iron 1 tab PO DAILY 07/21/21 01/31/22 Unknown History albuterol sulfate 90 mcg/actuation 2 puff inhalation Q6H PRN 12/06/21 01/31/22 Unknown History aerosol inhaler Shortness Of Breath Physical Exam Vital Signs and Narrative: Vital Signs: Last Vital Signs Temp 97 F 02/06/22 11:24 Pulse 75 02/06/22 11:24 Resp 18 02/06/22 11:24 BP 191/83 H 02/06/22 11:24 Pulse Ox 93 02/06/22 11:24 O2 Del Method 02/06/22 11:24 O2 Flow Rate 2 02/06/22 11:12 BMI result Body Mass Index 31.1 Const: Other: Constitutional : Alert, oriented, not in distress Neck : Normal inspection, Supple Cardiovascular : RRR, no JVP, no lower extremity edema Respiratory : fair bilateral air entry, no crackles, wheezes or rhonchi Gastrointestinal: soft, lax, Normal bowel sounds, Non tender Skin : Warm, Dry Musculoskeletal: Left knee in dressing, no drainage noted Neurological : Alert & oriented x3, No focal deficit , CN 2-12 within normal Results Labs CBC and Chem 7: 02/06/22 06:23 Labs: Laboratory Results - last 24 hr 02/06/22 06:00 COVID-19 ([facility]ONATHAN) Negative COVID-19 Clin Com See Note Imaging Radiologist's Impressions: Impressions Knee X-Ray 02/06/22 11:59 IMPRESSION: Satisfactory appearance of left knee replacement. Assessment and Plan (1) Knee osteoarthritis: Qualifiers: Osteoarthritis type: primary Laterality: bilateral Qualified Code(s): M17.0 - Bilateral primary osteoarthritis of knee Status: Acute Plan An 86 years old lady with PMH of HTN, CKD 3, GERD among others who presents to the hospital for elective left total knee arthroplasty. Knee osteoarthritis Post left knee arthroplasty Orthopedic team following HTN Elevated readings after surgery continue metoprolol, amlodipine Hold HCTZ for today Monitor blood pressure GERD continue omeprazole DVT PPX Lovenox Thank you for the consult, will continue to monitor the patient with you
[2022-02-06] MEDS: amLODIPine Besylate 10 MG TABLET PO (14:29)
[2022-02-06] MEDS: Metoprolol Tartrate 100 MG TABLET PO ×2 (14:30→20:43)
--- NOTE | 2022-02-06 15:46 | MHC.CM.PN ---
Met with patient to discuss dc planning. Delivered IMM. Patient reports she lives with her daughter and adult grandson. She is independent at baseline with ADLs, dresssing, bathing, driving, and manages her own medications and finances. She has 3 other children in the area who are available for assistance if needed. Jaki states a strong preference for dc home with VNA, does not want to go to a rehab facility. Lives in 2 story house bed and full bath on 2nd floor. Half bath on 1st floor and can sleep on 2st floor if not able to climb stairs on dc. She has a RW at home. Family to drive home. Assisted patient in completing HCP, provided patient with original and copies and placed a copy in the chart. PCP is Dr. Blankenship. Referral sent to [facility].
[2022-02-06] MEDS: ceFAZolin Sodium/Dextrose,Iso 2 GM/50 ML PIGGYBACK IV (16:42)
[2022-02-06] MEDS: Celecoxib 200 MG CAPSULE PO (20:44)
[2022-02-06] MEDS: Docusate Sodium 100 MG CAPSULE PO (20:45)
[2022-02-07 03:00] VITALS: BP 123/46; PULSE 59; RESP 17; TEMP 36.5; O2SAT 94
[2022-02-07] MEDS: Omeprazole 20 MG CAPSULE.DR PO (06:10)
[2022-02-07] MEDS: Lactated Ringers 1,000 ML 100 ML IVCONT (06:10)
[2022-02-07 06:32] LABS: MANUAL DIFF FLAG NO
[2022-02-07 06:40] LABS: Basophils Percent Auto 0.1 % (0-2); Hematocrit 37.6 % (37.0-47.0); Hemoglobin 12.7 g/dl (12.0-16.0); Imm Gran Abs Auto 0.07 X10*3/uL (0.00-0.03); Imm Gran Pct Auto 0.5 % (0.0-0.4); Lymphocytes Absolute Auto 1.1 X10*3/uL (1.2-4.9); Lymphocytes Percent Auto 7.5 % (20-40); Mean Corpuscular HGB Conc 33.8 g/dl (31.0-35.0); Mean Corpuscular Hemoglobin 31.1 pg (27.0-33.0); Mean Corpuscular Volume 92.2 fL (80.0-98.0); Mean Platelet Volume 11.2 fL (9.4-12.3); Monocytes Absolute Auto 0.8 X10*3/uL (0.1-1.2); Monocytes Percent Auto 5.4 % (2-11); Neutrophils Absolute Auto 12.6 x10*3/uL (2.0-8.3); Neutrophils Percent Auto 86.5 % (45-73); Platelet Count 164 X10*3/uL (160-400); Red Blood Count 4.08 X10*6/uL (4.20-5.50); White Blood Count 14.6 X10*3/uL (4.8-10.8)
[2022-02-07 06:56] LABS: Anion Gap 13 (12-20); Blood Urea Nitrogen 31 mg/dL (9-16); Calcium 8.9 mg/dL (8.4-10.2); Carbon Dioxide 27 mmol/L (22-29); Chloride 104 mmol/L (96-108); Creatinine Clr Calc Pharmacy 40.9; Estimated Glomerular Filt Rate 47; Glucose Fasting 137 mg/dL (60-99); Potassium 3.8 mmol/L (3.3-5.1); Sodium 140 mmol/L (135-145)
[2022-02-07 07:28] VITALS: BP 133/64; PULSE 78; RESP 18; TEMP 36.7; O2SAT 90
[2022-02-07] MEDS: Enoxaparin Sodium 40 MG/0.4 ML SYRINGE SUBCUT (09:02)
[2022-02-07] MEDS: Metoprolol Tartrate 100 MG TABLET PO (09:02)
[2022-02-07] MEDS: Celecoxib 200 MG CAPSULE PO (09:02)
[2022-02-07] MEDS: amLODIPine Besylate 10 MG TABLET PO (09:02)
[2022-02-07] MEDS: Docusate Sodium 100 MG CAPSULE PO (09:02)
[2022-02-07] MEDS: oxyCODONE HCl Immed Release 5 MG TABLET PO ×2 (09:07→14:36)
--- NOTE | 2022-02-07 09:07 | P.PNOP_ITS ---
Subjective Subjective Date of Service: 02/07/22 Interval history: Postop day 1 status post left total knee arthroplasty No overnight events. She is resting in bed. Denies shortness of breath, palpitations or chest pain. Physical Exam Vital Signs: Vital Signs: Last Vital Signs Temp 98.1 F 02/07/22 07:28 Pulse 78 02/07/22 07:28 Resp 18 02/07/22 07:28 BP 133/64 02/07/22 07:28 Pulse Ox 90 L 02/07/22 07:28 O2 Del Method 02/07/22 07:28 O2 Flow Rate 2 02/07/22 07:28 BMI result Body Mass Index 31.1 Const: General: cooperative, healthy appearing and no acute distress Resp: Effort & Inspection: normal respiratory effort and able to speak in complete sentences Cardio: Rate: regular rate Peripheral pulses: Peripheral pulses 2+ throughout GI: Palpation (GI): Soft to palpation Skin: General skin exam: no rashes or lesions noted Extrem: Other: incision clean dry and intact. [place] intact. No erythema or joint effusion. Calf supple nontender. Neurovascularly intact. Procedures Date of Service Date of Service: 02/07/22 Progress Note: A&P Assessment and plan (1) Status post total knee replacement, left: Status: Acute Assessment and Plan: * Continue pain mgmnt * Begin Lovenox for dvt ppx * begin PT for LT TKA * Dispo planning-Pending PT eval, pain mgmnt Time Spent With Patient Time: Total time spent is greater than 50% in coordination of care (as documented) at patient's floor/unit and/or counseling patient: Quality Stroke Does the patient have a stroke diagnosis?: No VTE Prior VTE?: No VTE Risk Level:: Surgical - very high VTE Device Contraindication: N/A - Device Ordered VTE Drug Contraindication: N/A - Med Ordered
[2022-02-07] MEDS: Acetaminophen 325 MG TABLET 650 MG PO (09:10)
[2022-02-07 09:50] VITALS: O2SAT 90
--- NOTE | 2022-02-07 10:13 | HO.POSTANES ---
Post Anesthesia Evaluation Post Anesthesia Evaluation Vital Signs: Vital Signs Temp Pulse Resp BP Pulse Ox O2 Del Method O2 Flow Rate 02/07/22 07:28 98.1 F 78 18 133/64 90 L Nasal Cannula 2 02/07/22 03:00 97.7 F 59 17 123/46 L 94 Nasal Cannula 2 02/06/22 23:00 97.2 F 55 17 110/50 L 94 Nasal Cannula 2 Anesthesia: Spinal and Nerve Block Mental Status: Awake Pain Control: Satisfactory Nausea/Vomiting: None Hydration: Adequate Anesthesia-Related Issues: No Anes. Related Issues
[2022-02-07 11:49] VITALS: BP 133/76; PULSE 72; RESP 18; TEMP 36.3; O2SAT 90
--- NOTE | 2022-02-07 15:57 | W.MHC.F2F ---
Service Date Service Date: 02/07/22 Encounter Date of encounter: 02/07/22 Reasons for Services Signs and symptoms assessed: left knee pain and poor balance s/p lt tka Reason for longterm: medication management (lovenox) Reason for physical therapy: home safety and mobility, therapeutic exercises, restore joint function, gait/transfer training, ADL training and energy conservation Reason for occupational therapy: home safety and mobility, therapeutic exercises, restore joint function, gait/transfer training, ADL training and energy conservation MD Overseeing Care: Abdelrahman Nicole Homebound: Leaving the home is medically contraindicated at this time without the asist of a device and/or another person due th the listed conditions above and below. Reason homebound: unsteady gait / fall risk, pain with ambulation, pain with transfers, poor balance / fall risk and unable to drive Homebound supporting statement: Pt. is considered home bound due to recent surgery. Unable to drive, poor balance, poor gait mechanics. Certification: Based on the above findings, I certify that this patient is confined to the home and needs intermittent longterm care, physical therapy and/or speech therapy, or continues to need occupational therapy. The patient is under my care, and I have initiated the establishment of the plan of care. The patient will be followed by a physician who will periodically review the plan of care.
--- NOTE | 2022-02-07 15:59 | PM.DS ---
DS: Providers Provider Date of Service: 02/07/22 Date of admission: 02/06/22 06:08 Primary care physician: Irving Meneses MD Consults: 02/06/22 11:24 Consult to Hospitalist Routine Consulting Provider: Hospitalist Reason For Exam: post op medical management, HTN DS: Diagnosis Discharge Diagnosis (1) Status post total knee replacement, left: Status: Acute DS: Summary Hospital Course Hospital Course: The patient underwent a successful left total knee arthroplasty, was transferred to PACU and then to the floor to recover. During their stay, their vitals were stable, afebrile at 97.4. Labs were unremarkable, H/H 12.7/37.6 . POD 1 she was started on Lovenox for DVT ppx, they also received PT services twice a day. Prior to discharge, their dressing was change, incision clean dry and intact, new Aquacel dressing applied and the plan was to be discharged home with VNA services. Time Spent with Patient Time attestation: Total time spent providing and/or coordinating discharge services: Discharge coordination time: Less than 30 minutes Quality: Safe Use of Opioids Does Pt have an Active Cancer Diagnosis on the Problem List?: No Quality: Stroke Does the patient have a stroke diagnosis?: No Physical Exam Vital Signs: Vital Signs: Last Vital Signs Temp 97.4 F 02/07/22 11:49 Pulse 72 02/07/22 11:49 Resp 18 02/07/22 11:49 BP 133/76 02/07/22 11:49 Pulse Ox 90 L 02/07/22 11:49 O2 Del Method 02/07/22 11:49 O2 Flow Rate 2 02/07/22 11:49 Oxygen Flow Rate 2 02/07/22 09:50 BMI result Body Mass Index 31.1 Const: General: cooperative, healthy appearing and no acute distress Resp: Effort & Inspection: normal respiratory effort and able to speak in complete sentences Cardio: Rate: regular rate Peripheral pulses: Peripheral pulses 2+ throughout GI: Palpation (GI): Soft to palpation Skin: General skin exam: no rashes or lesions noted Extrem: Other: incision clean dry and intact. Ram[place] intact. No erythema or joint effusion. Calf supple nontender. Neurovascularly intact. DS: Data Data Completed and Pending Pending studies at discharge: Pending at discharge 02/06/22 09:25 Surgical [PTH] Routine Labs on day of discharge: Laboratory Results - last 24 hr 02/07/22 02/07/22 06:03 06:03 WBC 14.6 H RBC 4.08 L Hgb 12.7 Hct 37.6 MCV 92.2 MCH 31.1 MCHC 33.8 RDW 13.0 Plt Count 164 MPV 11.2 Immature Gran % (Auto) 0.5 H Neut % (Auto) 86.5 H Lymph % (Auto) 7.5 L [place] % (Auto) 5.4 Eos % (Auto) 0.0 Baso % (Auto) 0.1 Lymph # (Auto) 1.1 L [place] # (Auto) 0.8 Eos # (Auto) 0.0 Baso # (Auto) 0.0 Abs Immat Gran (auto) 0.07 H Absolute Neuts (auto) 12.6 H Absolute Nucleated RBC 0.000 Nucleated RBC % (auto) 0.0 Sodium 140 Potassium 3.8 Chloride 104 Carbon Dioxide 27 Anion Gap 13 BUN 31 H Creatinine 1.10 Estim Creat Clear Calc 40.9 Estimated GFR 47 Fasting Glucose 137 H Calcium 8.9 D Discharge Plan Discharge Patient Disposition: Home Health Service Discharge Diagnosis: LT TKA Referrals: Eder MONROY [Outside] - 1 Week Brandon Ruth PA-C [Physician Air Bag Builder] - 2 Weeks (02/22/22 11:30 [facility] [place] [facility] Brandon Ruth PA-C[place] Discharge Medications: New celecoxib 200 mg Capsule 200 mg PO BID 30 Days Qty: 60 0RF docusate sodium 100 mg Capsule 100 mg PO BID PRN (Reason: constipation) 14 Days Qty: 30 0RF oxycodone 5 mg Tablet 5 mg PO ONCE PRN (Reason: Pain, Severe (Pain Scale 7-10)) 7 Days Qty: 42 0RF Rx Instructions: Partial Fill upon patient request. acetaminophen 325 mg Tablet 650 mg PO ONCE PRN (Reason: Pain, Mild (Pain Scale 1-3)) 30 Days Qty: 240 0RF enoxaparin 40 mg/0.4 mL Syringe 40 mg subcut Q24H 42 Days Qty: 16.8 0RF Continued hydrochlorothiazide 25 mg tablet 25 mg PO DAILY Qty: 90 1RF amlodipine 10 mg tablet 10 mg PO DAILY Qty: 60 3RF omeprazole 20 mg capsule,delayed release(DR/EC) 20 mg PO DAILY Qty: 90 1RF metoprolol tartrate 100 mg tablet 100 mg PO BID Qty: 180 1RF cholecalciferol (vitamin D3) [Vitamin D3] 25 mcg (1,000 unit) Capsule 25 mcg PO DAILY multivitamin with iron Tablet 1 tab PO DAILY (DME) RECLINER LIFT CHAIR RECLINER LIFT CHAIR See Rx Instructions .Route .MEDSUPPLY Qty: 1 0RF Rx Instructions: use as directed; albuterol sulfate 90 mcg/actuation HFA aerosol inhaler 2 puff inhalation Q6H PRN (Reason: Shortness Of Breath) Discontinued acetaminophen 325 mg Tablet 650 mg PO Q6H PRN (Reason: Pain) aspirin [Adult Low Dose Aspirin] 81 mg tablet,delayed release (DR/EC) 81 mg PO DAILY Discharge Orders: Discharge Order (Routine); Ordered 02/07/22 Ordered By: Brandon Ruth Diet: regular diet Activity on Discharge: Use cane or walker Stand Alone Forms: Patient Portal Discharge page Care Plan Goals: Restore function of joint Health Concerns: none Plan of Treatment: Physical Therapy Pain management DVT prophylaxis Assessment: Physical Therapy for Total knee arthroplasty: WBAT, gait training, ROM 0-12, quad strength Limit stair climbing No showering, no tub bath-keep dressing clean, dry and intact No driving x6 weeks Continue Lovenox x 6 weeks Follow up [place] [facility] [place] [facility] [place]: --you will also have your first out patient PT eval on the day of your post op appt-so please plan on being in the office that day for an extended period of time. Discharge Date/Time: 02/07/22 14:30
== END 2022-02-07 14:30 | disposition home health service (06) | DRG 470 ==
LOC: HO.SSSA 06:12 → HO.S3 11:04
PROVIDERS: Physician Assistant; Admitting Provider Orthopaedic Surgery; PCP Internal Medicine; Visit Provider Orthopaedic Surgery
PROC: 0SRD0JA Replacement of Left Knee Joint with Synthetic Substitute, Uncemented, Open Approach (ICD-10-PCS; CPT 27447; principal; 2022-02-06 07:30)
DX: M17.12 Unilateral primary osteoarthritis, left knee (principal); I25.10 Atherosclerotic heart disease of native coronary artery without angina pectoris; F17.210 Nicotine dependence, cigarettes, uncomplicated; I12.9 Hypertensive chronic kidney disease with stage 1 through stage 4 chronic kidney disease, or unspecified chronic kidney disease; N18.30 Chronic kidney disease, stage 3 unspecified; Z71.6 Tobacco abuse counseling; K21.9 Gastro-esophageal reflux disease without esophagitis; Z20.822 Contact with and (suspected) exposure to COVID-19; Z86.16 Personal history of COVID-19; Z98.42 Cataract extraction status, left eye; Z98.41 Cataract extraction status, right eye; Z79.899 Other long term (current) drug therapy
CPT/HCPCS: 36415; 73560; 80048; 85014; 85018; 85025; 86850; 86900; 86901; 87635; 87640; 87641; 88305; 88311; 94640; 97110; 97116; 97162; 97530; C1776; J0690; J1100; J1650; J2405; J2795

== ENCOUNTER 2022-03-16 11:00 | Outpatient (RCR) | payer MEDICARE, SELFPAY ==
--- NOTE | 2022-03-07 12:05 | MHC.PT.EP ---
[facility] [place] Office [place] Office [place] Office [address] Liudmila Aponte [address] [phone] F: [phone] F: [phone] F: [phone] F: [phone] Physical Therapy Plan of Care Date of Evaluation: Date of Surgery: 02/06/2022 Diagnosis: Presence of L artificial knee joint status post Assessment: Patient is a 86 year old female presenting to PT s/p L TKA on 02/13/2022. She presents today with impairments in pain, ROM, knee strength, hip strength, and gait mechanics. Pt's current occupation is none, with baseline physical activities including ADLs, ambulation, and stair negotiation. Pt expresses prison goal of reducing pain, and is motivated to work towards this in PT. Clinical presentation today is most consistent with signs and sx associated with s/p L TKA on 02/06/2022 and pt will benefit from skilled PT to address the following problems and impairments noted upon evaluation: pain, ROM, knee strength, hip strength, and gait mechanics. These problems limit the patient with the following functional activities: ambulations, ADLs, stair negotiation. The prescribed treatment plan of care is medically necessary. Co-morbidities of HTN, CKD, CAD, carotid bruit, on blood thinner were identified and taken into considerations of plan of care. Pt was educated on HEP, role of PT, prognosis, POC. Frequency and Duration: The patient will be seen 2 x week x 5 weeks Short Term Goals: Pt will demonstrate improved L knee flexion ROM to 120 in 3 weeks. Pt will demonstrate improved knee MMT strength to at least 4/5 in 3 weeks. Pt will demonstrate ability to ambulate with SC in 3 weeks with god mechanics. Long-Term Goals: Pt will demonstrate improved LEFI score by 9 points in 5 weeks for improved functional mobility. Pt will demonstrate ability to ambulate with LRD in 5 weeks with good mechanics. Pt will demonstrate ability to complete ADLs independently in 5 weeks for return to PLOF. Pt will demonstrate ability to negotiate stairs with min to no pain in 5 weeks for improved access to her home. Treatment Plan: Modalities to reduce pain, spasms and effusion. Manual therapy to restore motion and function. Therapeutic exercise to improve strength and flexibility. Neuromuscular re-education for posture and balance. Therapeutic activities to return to functional activities of daily living. Electronically signed by: Wen Dee PT, DPT, ATC Please sign and return to therapist. Thank you for your referral.
--- NOTE | 2022-03-27 13:18 | MHC.PT.DC ---
[facility] Office [place] [facility] [place] [facility] [address] Liudmila Aponte [address] [phone] F: [phone] F: [phone] F: [phone] F: [phone] Physical Therapy Discharge Report Diagnosis: Presence of L artificial knee joint status post Date of Surgery: 02/06/2022 Date of Evaluation: 03/07/22 Date of Discharge: 03/27/22 Treatments to Date: 3 Cancellations to Date: 3 No Shows to Date: 0 Discharge Status: Physician Discontinued Tx Discharge Summary: Pt sustained an injury requiring surgical intervention. Pt to be d/c from skilled outpatient PT until cleared to return. Electronically signed by: Wen Dee, PT, DPT, ATC Please sign and return to therapist. Thank you for your referral.
== END 2022-03-27 13:19 | disposition home or self-care (01) ==
LOC: HO.PTCHIC 11:00
PROVIDERS: PCP Internal Medicine; Visit Provider Orthopaedic Surgery
DX: Z96.652 Presence of left artificial knee joint (principal)
CPT/HCPCS: 97110; 97162; 97530

== ENCOUNTER 2022-03-22 05:51 | Outpatient (REF) | payer MEDICARE, SELFPAY ==
--- NOTE | ~2022-03-22 | XR_ITS ---
EXAMINATION: XR KNEES, STANDING AP XR KNEE, LEFT CLINICAL INFORMATION: Pain COMPARISON: Portable radiographs left knee 02/06/2022, standing AP knees 04/13/2020. TECHNIQUE: Standing AP view of both knees is performed. Additional lateral and axial patella views of the left knee are also included. FINDINGS: Right: Moderate narrowing medial knee joint compartment. Small marginal osteophyte. No erosive change or chondrocalcinosis. No destructive process. Left: Prior knee arthroplasty. Hardware is intact. There is no osteolysis or destructive process or periostitis. There is suprapatellar effusion. The patellar appears inferiorly positioned (baja) and there is ossification 1 cm width by 2.4 cm in length residing 2.5 cm superior to the patella. Borderline lateralization patella. Probable suprapatellar effusion. XR/XR knee LT 2V IMPRESSION: Right: -Moderate narrowing medial knee joint compartment. Left: -Prior knee arthroplasty. Hardware intact. No osteolysis. Probable suprapatellar effusion. -Patella baja. 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
--- NOTE | ~2022-03-22 | XR_ITS ---
EXAMINATION: XR KNEES, STANDING AP XR KNEE, LEFT CLINICAL INFORMATION: Pain COMPARISON: Portable radiographs left knee 02/06/2022, standing AP knees 04/13/2020. TECHNIQUE: Standing AP view of both knees is performed. Additional lateral and axial patella views of the left knee are also included. FINDINGS: Right: Moderate narrowing medial knee joint compartment. Small marginal osteophyte. No erosive change or chondrocalcinosis. No destructive process. Left: Prior knee arthroplasty. Hardware is intact. There is no osteolysis or destructive process or periostitis. There is suprapatellar effusion. The patellar appears inferiorly positioned (baja) and there is ossification 1 cm width by 2.4 cm in length residing 2.5 cm superior to the patella. Borderline lateralization patella. Probable suprapatellar effusion. XR/XR knee standing BI IMPRESSION: Right: -Moderate narrowing medial knee joint compartment. Left: -Prior knee arthroplasty. Hardware intact. No osteolysis. Probable suprapatellar effusion. -Patella baja. 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
== END 2022-03-22 05:52 | disposition home or self-care (01) ==
LOC: HO.HOSX 05:51
PROVIDERS: Visit Provider Physician Assistant
DX: M25.562 Pain in left knee (principal); M25.561 Pain in right knee
CPT/HCPCS: 73560; 73565

== ENCOUNTER 2022-03-27 09:43 | Inpatient (IN) | payer MEDICARE, SELFPAY ==
--- NOTE | 2022-03-26 11:52 | P.CONAN_ITS ---
Documented by User: Vanessa Rosales NP 03/26/22 11:55 HPI - Anesthesia Eval Consult details Narrative: 86yo F for Left Quadricep Tendon Repair s/p TKA 01/2022 with TIVA/Spinal/Block (cleared by PCP, pulmo, and cardiology preop) [facility] Active Problems Active Problems: All Active Problems (Updated 03/22/22 @ 23:31 by Brandon Ruth PA-C) Quadriceps tendon rupture (Acute) Status post total knee replacement, left (Acute) Primary osteoarthritis of left knee (Acute) Bronchitis (Acute) Preoperative cardiovascular examination (Acute) Iron deficiency anemia (Acute) Pre-op evaluation (Acute) Pre-operative exam (Acute) Osteoarthritis of left knee (Acute) Past Medical History Medical History Allergic rhinitis Anemia Benign essential hypertension Carotid bruit Chronic kidney disease (CKD), stage III (moderate) Coronary artery disease COVID-19 vaccine administered Current smoker Depression Edema Elevated TSH GERD without esophagitis History of COVID-19 Impaired fasting glucose Insomnia Iron deficiency anemia Knee osteoarthritis Obesity (BMI 30-39.9) Pure hypercholesterolemia Restrictive lung disease Tobacco abuse Vitamin D deficiency Family History Family History Father Medical history unknown Mother CVD (cardiovascular disease) Family history of problems with anesthesia: No (Daughter with PONV) Surgical History Surgical History History of hysterectomy Hx of bilateral cataract extraction Hx of cardiac cath Hx of colonoscopy History of Problems with Anesthesia: No Social History Social History Household Members Other:: daughter & grandsons Housing: Condominium Are you a primary critical care nurse specialist to a significant other at home: No Do you presently have visiting nurse or other home services: Yes (Meals on Wheels) Alcohol intake: never Patient Tobacco Use Status: Current everyday Tobacco user Tobacco use type: Cigarette Cigarettes Per Day: 10 Years Smoked: 70 e-Cigarette/Vaping Use: Never Used Second Hand Smoke Exposure: Yes service: No Current occupational status: retired and disabled Cognitive needs: No (cane/walker) Hearing needs: No Vision needs: No Meds Allergies Allergy/AdvReac Type Severity Reaction Status Date / Time atorvastatin AdvReac Intermediate myalgias Verified 03/22/22 12:43 Home Medications Medication Instructions Recorded Confirmed Last Taken Type cholecalciferol (vitamin D3) 25 25 mcg PO DAILY 07/21/21 01/31/22 Unknown History mcg (1,000 unit) capsule (Vitamin D3) multivitamin with iron 1 tab PO DAILY 07/21/21 01/31/22 Unknown History albuterol sulfate 90 mcg/actuation 2 puff inhalation Q6H PRN 12/06/21 01/31/22 Unknown History aerosol inhaler Shortness Of Breath Exam Exam Date and Time: March 26, 2022 1152 Pertinent Lab Results Pertinent Lab Results: Laboratory Tests 02/07/22 02/07/22 06:03 06:03 WBC 14.6 H Hgb 12.7 Hct 37.6 Plt Count 164 Sodium 140 Potassium 3.8 Chloride 104 Carbon Dioxide 27 BUN 31 H Creatinine 1.10 Narrative Narrative: EKG 01/2022 Vent. Rate : 079 BPM ? ? Atrial Rate : 079 BPM ?? P-R Int : 176 ms? QRS Dur : 076 ms ? ? QT Int : 396 ms ? ? ? P-R-T Axes : 072 033 056 degrees ?? QTc Int : 454 ms ? Normal sinus rhythm Normal ECG When compared with ECG of 21-NOV-2004 06:23, T wave inversion no longer evident in Inferior leads T wave inversion no longer evident in Anterolateral leads NM татьяна perf SPECT rest & str 10/2020 Impression: ? 1.? Myocardial perfusion imaging study shows normal myocardial perfusion 2.? Gated LVEF is 67% 3. Transient ischemic dilatation not present ? EKG is nondiagnostic for ischemia US carotid duplex BI 10/2020 IMPRESSION: 1. RIGHT: 0-49% range stenosis. ? 2. LEFT: 50-79% range stenosis. ? 3. There is normal antegrade flow seen in both vertebral arteries. Airway Loose/Missing/Broken Teeth: Yes (Missing throughout. Left lower broken) Assessment and Plan Assessment Anesthesia Assessment: Chart Reviewed Final Anesthetic Review Family History of Problems with Anesthesia: No (Daughter with PONV) History of Problems with Anesthesia: No Documented by User: Kisha Felix MD 03/27/22 07:52 [facility] Past Medical History Medical History Allergic rhinitis Anemia Benign essential hypertension Carotid bruit Chronic kidney disease (CKD), stage III (moderate) Coronary artery disease COVID-19 vaccine administered Current smoker Depression Edema Elevated TSH GERD without esophagitis History of COVID-19 Impaired fasting glucose Insomnia Iron deficiency anemia Knee osteoarthritis Obesity (BMI 30-39.9) Pure hypercholesterolemia Restrictive lung disease Tobacco abuse Vitamin D deficiency Functional capacity: uses cane/walker Patient : No Family History Family History Father Medical history unknown Mother CVD (cardiovascular disease) Surgical History Surgical History History of hysterectomy Hx of bilateral cataract extraction Hx of cardiac cath Hx of colonoscopy Social History Social History Household Members Other:: daughter & grandsons [facility] Are you a primary critical care nurse specialist to a significant other at home: No Do you presently have visiting nurse or other home services: Yes (Meals on Wheels) Alcohol intake: never Patient Tobacco Use Status: Current everyday Tobacco user Tobacco use type: Cigarette Cigarettes Per Day: 10 Years Smoked: 70 e-Cigarette/Vaping Use: Never Used Second Hand Smoke Exposure: Yes service: No Current occupational status: retired and disabled Cognitive needs: No (cane/walker) Hearing needs: No Vision needs: No Meds Allergies Allergy/AdvReac Type Severity Reaction Status Date / Time atorvastatin AdvReac Intermediate myalgias Verified 03/22/22 12:43 Home Medications Medication Instructions Recorded Confirmed Last Taken Type cholecalciferol (vitamin D3) 25 25 mcg PO DAILY 07/21/21 01/31/22 Unknown History mcg (1,000 unit) capsule (Vitamin D3) multivitamin with iron 1 tab PO DAILY 07/21/21 01/31/22 Unknown History albuterol sulfate 90 mcg/actuation 2 puff inhalation Q6H PRN 12/06/21 01/31/22 Unknown History aerosol inhaler Shortness Of Breath Exam Airway Mallampati Class: III
[2022-03-27] VITALS (16 sets, daily range): BP systolic 138–168; BP diastolic 53–74; PULSE 72–86; RESP 13–22; TEMP 36.2–36.9; O2SAT 91–96; BMI 29.0
--- NOTE | 2022-03-27 08:48 | P.CONAN_ITS ---
[facility], [facility] Active Problems Active Problems: All Active Problems (Updated 03/22/22 @ 23:31 by Brandon Ruth PA-C) Quadriceps tendon rupture (Acute) Status post total knee replacement, left (Acute) Primary osteoarthritis of left knee (Acute) Bronchitis (Acute) Preoperative cardiovascular examination (Acute) Iron deficiency anemia (Acute) Pre-op evaluation (Acute) Pre-operative exam (Acute) Osteoarthritis of left knee (Acute) Past Medical History Medical History Allergic rhinitis Anemia Benign essential hypertension Carotid bruit Chronic kidney disease (CKD), stage III (moderate) Coronary artery disease COVID-19 vaccine administered Current smoker Depression Edema Elevated TSH GERD without esophagitis History of COVID-19 Impaired fasting glucose Insomnia Iron deficiency anemia Knee osteoarthritis Obesity (BMI 30-39.9) Pure hypercholesterolemia Restrictive lung disease Tobacco abuse Vitamin D deficiency Functional capacity: uses cane/walker Family History Family History Father Medical history unknown Mother CVD (cardiovascular disease) Family history of problems with anesthesia: No (Daughter with PONV) Surgical History Surgical History History of hysterectomy Hx of bilateral cataract extraction Hx of cardiac cath Hx of colonoscopy History of Problems with Anesthesia: No Social History Social History (Reviewed 03/22/22 @ 12:43 by Payal Stephens [facility]) Household Members Other:: daughter & grandsons Housing: Condominium Are you a primary child adolescent care to a significant other at home: No Do you presently have visiting nurse or other home services: Yes (Meals on Wheels) Alcohol intake: never Patient Tobacco Use Status: Current everyday Tobacco user Tobacco use type: Cigarette Cigarettes Per Day: 10 Years Smoked: 70 e-Cigarette/Vaping Use: Never Used Second Hand Smoke Exposure: Yes Use of substances other than those prescribed or required for medical reasons: No Are you DNR?: No Advance Directives: No Advance Directives Information Provided: No Patient : No service: No Current occupational status: retired and disabled Cognitive needs: No (cane/walker) Hearing needs: No Vision needs: No Meds Allergies Allergy/AdvReac Type Severity Reaction Status Date / Time atorvastatin AdvReac Intermediate myalgias Verified 03/27/22 09:57 Home Medications Medication Instructions Recorded Confirmed Last Taken Type cholecalciferol (vitamin D3) 25 25 mcg PO DAILY 07/21/21 01/31/22 Unknown History mcg (1,000 unit) capsule (Vitamin D3) multivitamin with iron 1 tab PO DAILY 07/21/21 01/31/22 Unknown History albuterol sulfate 90 mcg/actuation 2 puff inhalation Q6H PRN 12/06/21 01/31/22 Unknown History aerosol inhaler Shortness Of Breath rosuvastatin 20 mg tablet 1 tab PO DAILY 03/27/22 03/27/22 03/26/22 History Exam Exam Date and Time: March 27, 2022 0848 Airway Mallampati Class: III TM Dist: >3cm Neck ROM: Full Heart: RRR Lungs: minimal wheezing bl. Assessment and Plan Final Anesthetic Review Family History of Problems with Anesthesia: No (Daughter with PONV) History of Problems with Anesthesia: No ASA Class: III Final Preanesthetic Review: No Changes in Pt Med Stat, Meds/Allgs Chart Reviewed, Consent Obtained/Reviewed and Anes Risks/Benef Reviewed Patient Risk: Intermediate Procedure Risk: Low Anesthetic Plan Anesthetic Plan: GA Disposition: Standard PACU
--- NOTE | 2022-03-27 10:21 | PHA.MEDREC ---
Pharmacy Consult ? Medication Reconciliation Pharmacy has reviewed the medication reconciliation completed by nurse.
[2022-03-27] MEDS: Albuterol Sulfate (0.083%) 2.5 MG/3 ML VIAL.NEB INHALE (10:31)
[2022-03-27] MEDS: Lactated Ringers 1,000 ML 100 ML IVCONT ×2 (10:37→17:10)
[2022-03-27 10:41] LABS: COVID-19 Test Negative (Negative)
--- NOTE | 2022-03-27 10:57 | MHC.SHP ---
Pre-Procedural Eval Section A Date of Service: 03/27/22 The patient is an INPATIENT: No Changes since office visit: Yes Patient answered all questions; No Cold of Flu in the past 2 weeks, No New Medical Problems and No Changes in Medication The History & Physical has been completed within 30 days and I have reviewed it.: Yes Section B Chief Complaint: Quad Tendon Rupture Allergies: Allergies Allergy/AdvReac Type Severity Reaction Status Date / Time atorvastatin AdvReac Intermediate myalgias Verified 03/27/22 09:57 Plan I have reviewed the history and physical and performed a pertinent physical examination on my patient. No changes have occurred unless specified.
[2022-03-27] MEDS: HYDROmorphone HCl 0.5 MG/0.5 ML SYRINGE 0.25 MG IVPUSH ×3 (13:08→18:07)
--- NOTE | 2022-03-27 16:10 | P.BOP_ITS ---
Brief Operative Note Date of Service: 03/27/22 Pre-op diagnosis: left quadriceps tendon avulsion Post-op diagnosis: same Procedure: Left quad tendon repair Implants: none Surgeon: Abdelrahman Nicole MD Anesthesia: LORENZOA Was an Project Development Coordinator used for this Procedure?: Yes Project Development Coordinator: Brandon Ruth Estimated blood loss (mL): 100 Tourniquet time (min): 45 IV fluids (mL): 800 Pathology: none sent Condition: stable Disposition: PACU
[2022-03-27] MEDS: ceFAZolin Sodium/Dextrose,Iso 2 GM/50 ML PIGGYBACK IV (17:12)
[2022-03-27] MEDS: 0.9 % Sodium Chloride Flush 3 ML SYRINGE IVFLUSH (17:12)
[2022-03-27] MEDS: Metoprolol Tartrate 100 MG TABLET PO (20:25)
[2022-03-27] MEDS: Celecoxib 200 MG CAPSULE PO (20:25)
[2022-03-27] MEDS: oxyCODONE HCl Immed Release 5 MG TABLET 10 MG PO (20:26)
[2022-03-27] MEDS: Docusate Sodium 100 MG CAPSULE PO (20:26)
[2022-03-28] MEDS: 0.9 % Sodium Chloride Flush 3 ML SYRINGE IVFLUSH (01:11)
[2022-03-28] MEDS: Lactated Ringers 1,000 ML 100 ML IVCONT (02:04)
[2022-03-28 03:20] VITALS: BP 164/79; PULSE 85; RESP 20; TEMP 36.5; O2SAT 91
[2022-03-28] MEDS: Omeprazole 20 MG CAPSULE.DR PO (05:30)
--- NOTE | 2022-03-28 05:52 | HO.PM.IMCN ---
History of Present Illness Data of Consult Service Date: 03/27/22 Primary Care Provider: Irving Meneses MD HPI 86 y-Old female with past medical history of hypertension, CKD, CAD, who presents to the hospital for elective left knee quad tendon repair. We are asked to see patient for medical management. Patient reports feeling very well with no acute symptoms at this time. She reports compliance with her medications for general medical problems, denies any chest pain, shortness breath at this time, reports pain in her knees but well controlled with the pain medications given by surgeon. No abdominal pain, no nausea or vomiting, no diarrhea constipation, no urinary symptoms. Review of Systems Review of Systems: Yes all other systems are reviewed and are negative [facility] Medical History Allergic rhinitis Anemia Benign essential hypertension Carotid bruit Chronic kidney disease (CKD), stage III (moderate) Coronary artery disease COVID-19 vaccine administered Current smoker Depression Edema Elevated TSH GERD without esophagitis History of COVID-19 Impaired fasting glucose Insomnia Iron deficiency anemia Knee osteoarthritis Obesity (BMI 30-39.9) Pure hypercholesterolemia Restrictive lung disease Tobacco abuse Vitamin D deficiency Functional capacity: uses cane/walker Family History Father Medical history unknown Mother CVD (cardiovascular disease) Surgical History History of hysterectomy Hx of bilateral cataract extraction Hx of cardiac cath Hx of colonoscopy Hx of total knee arthroplasty Social History Household Members: Family Household Members Other:: daughter & grandsons Housing: Condominium Are you a primary date night caregiver to a significant other at home: No Do you presently have visiting nurse or other home services: No Alcohol intake: never Patient Tobacco Use Status: Current everyday Tobacco user Tobacco use type: Cigarette Cigarettes Per Day: 10 Years Smoked: 70 e-Cigarette/Vaping Use: Never Used Second Hand Smoke Exposure: Yes service: No Current occupational status: retired and disabled Cognitive needs: No (cane/walker) Hearing needs: No Vision needs: No Meds Allergies Allergy/AdvReac Type Severity Reaction Status Date / Time atorvastatin AdvReac Intermediate myalgias Verified 03/27/22 09:57 Active Medications: Current Medications Acetaminophen (Acetaminophen 325 Mg Tablet) 650 mg PO Q6H PRN PRN Reason: Pain, Mild (Pain Scale 1-3) Albuterol Sulfate (Albuterol Sulfate 90 Mcg 8 Gm Inhaler) 2 puff INHALE Q6H PRN PRN Reason: Shortness Of Breath Amlodipine Besylate (Amlodipine Besylate 10 Mg Tablet) 10 mg PO DAILY [facility]; Protocol Celecoxib (Celecoxib 200 Mg Capsule) 200 mg PO BID [facility] Last Admin: 03/27/22 20:25 Dose: 200 mg Docusate Sodium (Docusate Sodium 100 Mg Capsule) 100 mg PO BID [facility] Last Admin: 03/27/22 20:26 Dose: 100 mg Docusate Sodium (Docusate Sodium 100 Mg Capsule) 100 mg PO BID PRN PRN Reason: constipation Hydrochlorothiazide (Hydrochlorothiazide 25 Mg Tablet) 25 mg PO DAILY [facility]; Protocol Hydromorphone HCl (Hydromorphone Hcl 0.5 Mg/0.5 Ml Syringe) 0.25 mg IVPUSH Q4H PRN; Protocol PRN Reason: Pain, Severe (Pain Scale 7-10) Last Admin: 03/27/22 18:07 Dose: 0.25 mg Lactated Ringer's (Lr) 1,000 mls @ 100 mls/hr IVCONT .Q10H [facility] Last Admin: 03/28/22 02:04 Dose: 100 mls/hr Cefazolin Sodium/Dextrose (Ancef) 2 gm in 50 mls @ 100 mls/hr IV ONCE@1700 ONE Stop: 03/28/22 17:29 Last Infusion: 03/27/22 18:16 Dose: Infused Metoprolol Tartrate (Metoprolol Tartrate 100 Mg Tablet) 100 mg PO BID [facility]; Protocol Last Admin: 03/27/22 20:25 Dose: 100 mg Omeprazole (Omeprazole 20 Mg Capsule.Dr) 20 mg PO DAILY@0630 [facility] Last Admin: 03/28/22 05:30 Dose: 20 mg Ondansetron HCl (Ondansetron Hcl 4 Mg/2 Ml Vial) 4 mg IVPUSH Q8H PRN PRN Reason: Nausea and Vomiting Oxycodone HCl (Oxycodone Hcl Immed Release 5 Mg Tablet) 10 mg PO Q4H PRN PRN Reason: Pain, Moderate (Pain Scale 4-6 Last Admin: 03/27/22 20:26 Dose: 10 mg Sodium Chloride (0.9 % Sodium Chloride Flush 3 Ml Syringe) [facility] Admin: 03/28/22 01:11 Dose: 3 ml Home Medications Medication Instructions Recorded Confirmed Last Taken Type cholecalciferol (vitamin D3) 25 25 mcg PO DAILY 07/21/21 03/27/22 03/26/22 History mcg (1,000 unit) capsule (Vitamin D3) multivitamin with iron 1 tab PO DAILY 07/21/21 03/27/22 03/26/22 History albuterol sulfate 90 mcg/actuation 2 puff inhalation Q6H PRN 12/06/21 03/27/22 Unknown History aerosol inhaler Shortness Of Breath rosuvastatin 20 mg tablet 1 tab PO DAILY 03/27/22 03/27/22 03/26/22 History Physical Exam Vital Signs and Narrative: Vital Signs: Last Vital Signs Temp 97.7 F 03/28/22 03:20 Pulse 85 03/28/22 03:20 Resp 20 03/28/22 03:20 BP 164/79 H 03/28/22 03:20 Pulse Ox 91 L 03/28/22 03:20 O2 Del Method 03/28/22 03:20 O2 Flow Rate 1 03/28/22 03:20 BMI result Body Mass Index 29.0 Const: General: cooperative and no acute distress Orientation/consciousness: patient oriented x3 Eyes: General: appearance normal, both eyes and all related structures Resp: Effort & Inspection: normal respiratory effort Auscultation: clear to auscultation bilaterally Cardio: Rate: regular rate Rhythm: regular rhythm GI: Palpation (GI): Soft to palpation Auscultation: normal bowel sounds Skin: General skin exam: no rashes or lesions noted Neuro: General: patient oriented x3 Cognition (Neuro): normal cognition Extrem: Other: left knee and a clean wrapping, as well as a brace Results Labs Labs: Laboratory Results - last 24 hr 03/27/22 03/27/22 10:00 11:01 COVID-19 ([facility]) Negative COVID-19 Clin Com See Note Blood Type A Positive Antibody Screen NEGATIVE Assessment and Plan (1) Quadriceps tendon rupture: Status: Acute (2) Status post total knee replacement, left: Status: Acute Plan An 86 years old lady with PMH of HTN, CKD 3, GERD among others who presents to the hospital for elective left quad tendon repair # status post quad tendon repair POD1 - stable, management per orthopedic team # status post left knee arthroplasty - orthopedic team following # hypertension - stable - continue medication # GERD - continue omeprazole DVT prophylaxis: per surgerical team thanky you for the consult
[2022-03-28 06:10] LABS: Hematocrit 39.9 % (37.0-47.0); Hemoglobin 12.8 g/dl (12.0-16.0)
[2022-03-28 07:29] VITALS: BP 175/80; PULSE 89; RESP 18; TEMP 36.9; O2SAT 90
[2022-03-28] MEDS: Docusate Sodium 100 MG CAPSULE PO (07:59)
[2022-03-28] MEDS: hydroCHLOROthiazide 25 MG TABLET PO (07:59)
[2022-03-28] MEDS: amLODIPine Besylate 10 MG TABLET PO (07:59)
[2022-03-28] MEDS: Metoprolol Tartrate 100 MG TABLET PO (08:00)
[2022-03-28] MEDS: Celecoxib 200 MG CAPSULE PO (08:00)
--- NOTE | 2022-03-28 08:02 | P.OP_ITS ---
Operative Note Operative Note Date of Service: 03/28/22 Narrative: Date of Service: 03/27/22 Pre-op diagnosis: left quadriceps tendon periprosthetic patella fracture Post-op diagnosis: same Procedure: 1)Open reduction and internal fixation left periprosthtic patella fracture Implants: 2.0 Fiberwire, Arthrex none Surgeon: Abdelrahman Nicole MD Anesthesia: GETA Was an Cable Stretcher And Tester used for this Procedure?: Yes Cable Stretcher And Tester: Brandon Ruth Estimated blood loss (mL): 100 Tourniquet time (min): 45 IV fluids (mL): 800 Pathology: none sent Condition: stable Disposition: PACU Procedure in detail: Patient was brought to the operating room and placed supine on the surgical table. She was prepped and draped in standard sterile fashion and a time out was called to identify proper site, proper procedure and IV antibiotics per weight were administered.Incising the proximal half of prior total knee incision. Full-thickness skin flap was developed and the hematoma was removed from the knee. immeditely evident was an avulsion of the proximal pole of the patella. The patellar prosthesis remained stable however. There was comminution of the proximal medial aspect of the patella. One of the cement less patellar tines was exposed but the patellar component was stable. I then made the decision to repair the fracture with FiberWire suture as the pieces wouln not hold anything more substantial and even cerclage wire was not feasable given the limited bone that was adjacent to the patella. A #2 FiberWire was used in Krackow fashion to run up the quad tendon laterally and then as I came down the tendon medially I used a K-wire and ran the FiberWire through the several pieces of the avulsed patella and was able to reapproximate the patellar anatomy knee in extension. This was oversewn again with the 2nd suture in Krackow fashion in which the quad was oversewn on to the repaired bony fragments and remaining medial soft tissues. There was tearing of the previous arthrotomy and this was repaired also with a additional FiberWire suture. Oncompletion of the repair was able to flex the knee 90 degrees without palpable defect and with reapproximated comminuted pieces of patella. I was satisfied with the repair. At this point I copiously irrigated and closed subcutaneous tissue with absorbable suture in the skin with farideh. Patient was placed into a hinged knee brace locked in extension once sterile dressings were applied. She was extubated and brought to recovery room in stable condition. There were no known complications.
[2022-03-28 08:19] VITALS: BP 175/80; PULSE 89; O2SAT 90
--- NOTE | 2022-03-28 09:35 | MHC.CM.PN ---
IMM 03/28/22, EMR REVIEWED PT ADMITTED S/P L TENDON RUPTURE REPAIR S/P L TKA, CM MET W/PT WHO IS A&O, PT REPORTS SHE LIVES W/HER DTR DAVID AND HAS LOTS OF HELP FROM HER OTHER CHILDREN, PT HAS A WHELLED WALKER, TOILET SEAT RAISER AND GRAB BARS IN BR, PT WAS GOING TO OUTPT PT HOWEVER AFTER THIS PROCEDURE WOULD LIKE HOME SERVICES, PT HAS NO PREFERENCE AND AGREEABLE TO REFERRAL TO [facility]. PT VERIFIES SHE RECEIVED J&J VACCINE AND THEN WAS ALSO HAD COVID, PT IS UNCLEAR OF TIMELINE, PCP VERIFIED HEATHER ARNOLD AND PT REPORTS SHE BELIEVES SHE DID COMPLETE A HCP BEFORE HER LTKA, CM HAS CONTACTED PT'S PCP AND THEY DO NOT HAVE ONE ON FILE AND CM ATTEMPTED TO CONTACT [facility] CM TO SEE IF THEY HAVE ONE ON FILE THAT CAN BE FAXED. D/C PLAN: POSSIBLY HOME TODAY W/NEW [facility] FOR HOME PT AND DTR EMILI FOR TRANSPORT.
--- NOTE | 2022-03-28 10:10 | P.DS_ITS ---
DS: Providers Provider Date of Service: 03/28/22 Date of admission: 03/27/22 09:43 Primary care physician: Irving Meneses MD Consults: 03/27/22 16:52 Consult to Hospitalist Routine Consulting Provider: Hospitalist Reason For Exam: medical management DS: Diagnosis Discharge Diagnosis (1) Quadriceps tendon rupture: Status: Acute (2) Status post total knee replacement, left: Status: Acute DS: Summary Hospital Course Hospital Course: The patient underwent a successful left quad tendon repair, they were transferred to PACU and then to the floor to recover. During their stay, their vitals were stable, afebrile at 98.5. Labs were unremarkable, H/H 12.8/39.9. POD 1 they were started on Lovenox for DVT ppx, they also received Physical Therapy services twice a day. Prior to discharge, their dressing was clean dry and the plan was to be discharged home with VNA services. Time Spent with Patient Time attestation: Total time spent providing and/or coordinating discharge services: Discharge coordination time: Less than 30 minutes Quality: Safe Use of Opioids Does Pt have an Active Cancer Diagnosis on the Problem List?: No Quality: Stroke Does the patient have a stroke diagnosis?: No Physical Exam Vital Signs: Vital Signs: Last Vital Signs Temp 98.5 F 03/28/22 07:29 Pulse 89 03/28/22 08:19 Resp 18 03/28/22 07:29 BP 175/80 H 03/28/22 08:19 Pulse Ox 90 L 03/28/22 08:19 O2 Del Method 03/28/22 07:29 O2 Flow Rate 1 03/28/22 03:20 BMI result Body Mass Index 29.0 Extrem: Other: Left knee incision well healed. There is significant swelling around the knee joint with tenderness to palpation along the quad tendon with inability to SLR. DS: Data Data Completed and Pending Completed studies during hospitalization [Text1]: Procedures Replacement of Left Knee Joint with Synthetic Substitute, Uncemented, Open Approach (02/06/22) Labs on day of discharge: Laboratory Results - last 24 hr 03/27/22 03/27/22 03/28/22 10:00 11:01 05:11 Hgb 12.8 Hct 39.9 COVID-19 ([facility]) Negative COVID-19 Clin Com See Note Blood Type A Positive Antibody Screen NEGATIVE Discharge Plan Discharge Disposition: Home Health Service Referrals: Eder MONROY [Outside] - 1 Day (HOME PHYSICAL THERAPY) Brandon Ruth PA-C [Physician Care Asst] - 04/12/22 1:00 pm Discharge Medications: New celecoxib 200 mg Capsule 200 mg PO BID 30 Days Qty: 60 0RF acetaminophen 325 mg Tablet 650 mg PO Q6H PRN (Reason: Pain, Mild (Pain Scale 1-3)) 30 Days Qty: 240 0RF oxycodone 10 mg tablet 10 mg PO Q4H PRN (Reason: Pain, Moderate (Pain Scale 4-6) 7 Days Qty: 42 0RF Rx Instructions: Partial Fill upon patient request. docusate sodium 100 mg Capsule 100 mg PO BID 30 Days Qty: 60 0RF Continued amlodipine 10 mg tablet 10 mg PO DAILY Qty: 60 3RF omeprazole 20 mg capsule,delayed release(DR/EC) 20 mg PO DAILY Qty: 90 1RF metoprolol tartrate 100 mg tablet 100 mg PO BID Qty: 180 1RF (DME) Raised Toliet Seat with handels See Rx Instructions .ROUTE .MEDSUPPLY Qty: 1 0RF Rx Instructions: As directed Osteoarthritis hydrochlorothiazide 25 mg tablet 25 mg PO DAILY Qty: 90 1RF cholecalciferol (vitamin D3) [Vitamin D3] 25 mcg (1,000 unit) Capsule 25 mcg PO DAILY multivitamin with iron Tablet 1 tab PO DAILY docusate sodium 100 mg Capsule 100 mg PO BID PRN (Reason: constipation) 14 Days Qty: 30 0RF rosuvastatin 20 mg tablet 1 tab PO DAILY (DME) RECLINER LIFT CHAIR RECLINER LIFT CHAIR See Rx Instructions .Route .MEDSUPPLY Qty: 1 0RF Rx Instructions: use as directed; albuterol sulfate 90 mcg/actuation HFA aerosol inhaler 2 puff inhalation Q6H PRN (Reason: Shortness Of Breath) Discontinued celecoxib 200 mg capsule 200 mg PO BID 30 Days Qty: 60 3RF oxycodone 5 mg tablet 5 mg PO Q6H PRN (Reason: Pain, Severe (Pain Scale 7-10)) 7 Days Qty: 28 0RF Rx Instructions: Partial Fill upon patient request. acetaminophen 325 mg Tablet 650 mg PO ONCE PRN (Reason: Pain, Mild (Pain Scale 1-3)) 30 Days Qty: 240 0RF enoxaparin 40 mg/0.4 mL Syringe 40 mg subcut Q24H 42 Days Qty: 16.8 0RF Discharge Orders: Discharge Order (Routine); Ordered 03/28/22 Ordered By: Sallie Mendosa Forms: Patient Portal Discharge page Care Plan Goals: Restore fxn to left knee Health Concerns: None Plan of Treatment: * WBAT in brace * May unlock brace to 20 degrees at the 2 week jose c, then progress 20 degrees each week * Ice + Elevate * Dressing changes as needed * No tub bath or shower-Keep dressing clean, dry and intact * Follow up with orthopedics in 2 weeks Assessment: Stable for D/C
--- NOTE | 2022-03-28 10:13 | W.MHC.F2F ---
Service Date Service Date: 03/28/22 Encounter Date of encounter: 03/28/22 Reasons for Services Signs and symptoms assessed: Pt. is considered homebound due to recent surgery. Unable to drive, poor balance, poor gait mechanics. Reason for physical therapy: home safety and mobility, therapeutic exercises, restore joint function, gait/transfer training, assess need for DME and ADL training Reason for occupational therapy: home safety and mobility, therapeutic exercises, restore joint function, gait/transfer training, assess need for DME and ADL training Homebound: Leaving the home is medically contraindicated at this time without the asist of a device and/or another person due th the listed conditions above and below. Reason homebound: unsteady gait / fall risk, leg weakness, pain with ambulation, pain with transfers, poor balance / fall risk and unable to drive Homebound supporting statement: Pt. is considered homebound due to recent surgery. Unable to drive, poor balance, poor gait mechanics. Certification: Based on the above findings, I certify that this patient is confined to the home and needs intermittent custodial care, physical therapy and/or speech therapy, or continues to need occupational therapy. The patient is under my care, and I have initiated the establishment of the plan of care. The patient will be followed by a physician who will periodically review the plan of care.
[2022-03-28 12:00] VITALS: BP 134/63; PULSE 71; RESP 18; TEMP 36.3; O2SAT 95
--- NOTE | 2022-03-28 12:15 | MHC.CM.PN ---
PT CLEARED FOR D/C HOME W/[facility] FOR HOME PT ADN DTR [facility] FOR TRANSPORT
--- NOTE | 2022-03-28 13:46 | HO.POSTANES ---
Post Anesthesia Evaluation Post Anesthesia Evaluation Vital Signs: Vital Signs Temp Pulse Resp BP Pulse Ox O2 Del Method O2 Flow Rate 03/28/22 12:00 97.4 F 71 18 134/63 95 Room Air 03/28/22 08:19 89 175/80 H 90 L 03/28/22 07:29 98.5 F 89 18 175/80 H 90 L Room Air 03/28/22 03:20 97.7 F 85 20 164/79 H 91 L Nasal Cannula 1 Anesthesia: General Mental Status: Awake Pain Control: Satisfactory Nausea/Vomiting: None Hydration: Adequate Anesthesia-Related Issues: No Anes. Related Issues
== END 2022-03-28 12:00 | disposition home health service (06) | DRG 908 ==
LOC: HO.SSSA 09:48 → HO.S3 16:01
PROVIDERS: Physician Assistant; Admitting Provider Orthopaedic Surgery; PCP Internal Medicine; Visit Provider Orthopaedic Surgery
PROC: 0LQM0ZZ Repair Left Upper Leg Tendon, Open Approach (ICD-10-PCS; CPT 27524; principal; 2022-03-27 11:30)
DX: S76.192A Other specified injury of left quadriceps muscle, fascia and tendon, initial encounter (principal); M97.12XA Periprosthetic fracture around internal prosthetic left knee joint, initial encounter; S82.042A Displaced comminuted fracture of left patella, initial encounter for closed fracture; F17.210 Nicotine dependence, cigarettes, uncomplicated; X58.XXXA Exposure to other specified factors, initial encounter; Z71.6 Tobacco abuse counseling; K21.9 Gastro-esophageal reflux disease without esophagitis; N18.30 Chronic kidney disease, stage 3 unspecified; I25.10 Atherosclerotic heart disease of native coronary artery without angina pectoris; Z20.822 Contact with and (suspected) exposure to COVID-19; I25.2 Old myocardial infarction; Z86.16 Personal history of COVID-19; Z79.899 Other long term (current) drug therapy
CPT/HCPCS: 27524; 36415; 85014; 85018; 86850; 86900; 86901; 87635; 97162; 97166; A4649; J0131; J0690; J1100; J1170; J2250; J2405; J2795; J3010

== ENCOUNTER 2022-04-12 08:17 | Outpatient (RCR) | payer MEDICARE, SELFPAY | END 2022-07-16 15:23 | disposition home or self-care (01) | LOC: HO.PT 08:17 | PROVIDERS: Visit Provider Physician Assistant | DX: S76.111A Strain of right quadriceps muscle, fascia and tendon, initial encounter (principal) ==

== ENCOUNTER → 2022-04-12 12:53 | Outpatient (BNVA) | payer MEDICARE, SELFPAY | PROVIDERS: PCP Internal Medicine; Visit Provider Physician Assistant | DX: S76.112A Strain of left quadriceps muscle, fascia and tendon, initial encounter (principal); X58.XXXA Exposure to other specified factors, initial encounter; Y93.9 Activity, unspecified; Y92.9 Unspecified place or not applicable; Y99.9 Unspecified external cause status; Z96.652 Presence of left artificial knee joint | CPT/HCPCS: 99212 ==

== ENCOUNTER 2022-05-14 05:49 | Outpatient (REF) | payer MEDICARE, SELFPAY ==
--- NOTE | ~2022-05-14 | XR_ITS ---
EXAMINATION: XR BOTH KNEES AP STANDING XR LEFT KNEE, 2 VIEWS CLINICAL INFORMATION: Pain in the right knee. Pain in the left knee. COMPARISON: 03/22/2022 TECHNIQUE: Standing AP view of both knees and lateral and sunrise views of the left knee. FINDINGS: LEFT KNEE: A periprosthetic avulsion fracture is evident at the proximal margin of the patella around the patellar resurfacing component with proximal retraction of the fracture fragments by 4.7 cm. Small foci of heterotopic bone are also noted in these regions, slightly more pronounced as compared to prior. Soft tissues are swollen. Femoral and tibial components appear appropriately situated without periprosthetic fracture or lucency. RIGHT KNEE: There is moderate medial compartment joint space narrowing with small marginal osteophytes. No acute fractures. Lateral compartment appears relatively well-preserved. XR/XR knee standing BI IMPRESSION: Mildly comminuted periprosthetic fracture at the proximal pole of the patella with resultant patella baja of the dominant patellar fragments and the patellar resurfacing component. There is increased diastasis of the fracture fragments. Moderate medial joint space narrowing at the right knee.
--- NOTE | ~2022-05-14 | XR_ITS ---
EXAMINATION: XR BOTH KNEES AP STANDING XR LEFT KNEE, 2 VIEWS CLINICAL INFORMATION: Pain in the right knee. Pain in the left knee. COMPARISON: 03/22/2022 TECHNIQUE: Standing AP view of both knees and lateral and sunrise views of the left knee. FINDINGS: LEFT KNEE: A periprosthetic avulsion fracture is evident at the proximal margin of the patella around the patellar resurfacing component with proximal retraction of the fracture fragments by 4.7 cm. Small foci of heterotopic bone are also noted in these regions, slightly more pronounced as compared to prior. Soft tissues are swollen. Femoral and tibial components appear appropriately situated without periprosthetic fracture or lucency. RIGHT KNEE: There is moderate medial compartment joint space narrowing with small marginal osteophytes. No acute fractures. Lateral compartment appears relatively well-preserved. XR/XR knee LT 2V IMPRESSION: Mildly comminuted periprosthetic fracture at the proximal pole of the patella with resultant patella baja of the dominant patellar fragments and the patellar resurfacing component. There is increased diastasis of the fracture fragments. Moderate medial joint space narrowing at the right knee.
== END 2022-05-14 05:50 | disposition home or self-care (01) ==
LOC: HO.HOSX 05:49
PROVIDERS: Visit Provider Physician Assistant
DX: M25.562 Pain in left knee (principal); M25.561 Pain in right knee
CPT/HCPCS: 73560; 73565

== ENCOUNTER → 2022-05-14 09:22 | Outpatient (BNVA) | payer MEDICARE, SELFPAY | PROVIDERS: PCP Internal Medicine; Visit Provider Physician Assistant | DX: Z47.1 Aftercare following joint replacement surgery (principal); S76.112D Strain of left quadriceps muscle, fascia and tendon, subsequent encounter; Z96.652 Presence of left artificial knee joint | CPT/HCPCS: 99212 ==

== ENCOUNTER 2022-07-09 06:18 | Outpatient (REF) | payer MEDICARE, SELFPAY ==
--- NOTE | ~2022-07-09 | XR_ITS ---
EXAMINATION: XR KNEE, LEFT CLINICAL INFORMATION: Left knee pain COMPARISON: Previous x-ray most recent April 2022 TECHNIQUE: Two views of the left knee. FINDINGS: Osteopenia. There is a 3 component left knee replacement. This appears unchanged. There may be inferiorly positioned of the patellar component. There is bone loss adjacent to the superior aspect of the patella prosthesis component. There are multiple soft tissue ossifications seen more superiorly again questionable for displaced fracture fragment. Some of this may represent ossified intra-articular loose bodies soft tissue calcifications or ossifications. There is soft tissue swelling anterior to the patella. There is a joint effusion. This does not appear appreciably changed from most recent exam April 2022. XR/XR knee LT 2V IMPRESSION: 3 component left knee replacement. Osteopenia. Probable displaced fracture of the superior patella unchanged from most recent exam April 2022. Joint effusion and prepatellar soft tissue swelling.
== END 2022-07-09 06:19 | disposition home or self-care (01) ==
LOC: HO.HOSX 06:18
PROVIDERS: Visit Provider Physician Assistant
DX: S76.119A Strain of unspecified quadriceps muscle, fascia and tendon, initial encounter (principal); Z96.652 Presence of left artificial knee joint
CPT/HCPCS: 73560; 99212

== ENCOUNTER 2022-08-29 11:07 | Outpatient (REF) | payer MEDICARE, SELFPAY ==
[2022-08-29 13:36] LABS: MANUAL DIFF FLAG NO
[2022-08-29 13:49] LABS: Basophils Absolute Auto 0.1 X10*3/uL (0.0-0.2); Basophils Percent Auto 0.6 % (0-2); Eosinophils Absolute Auto 0.3 X10*3/uL (0.0-0.4); Eosinophils Percent Auto 3.7 % (0-4); Hematocrit 45.5 % (37.0-47.0); Hemoglobin 14.6 g/dl (12.0-16.0); Imm Gran Abs Auto 0.04 X10*3/uL (0.00-0.03); Imm Gran Pct Auto 0.4 % (0.0-0.4); Lymphocytes Absolute Auto 1.6 X10*3/uL (1.2-4.9); Lymphocytes Percent Auto 17.6 % (20-40); Mean Corpuscular HGB Conc 32.1 g/dl (31.0-35.0); Mean Corpuscular Hemoglobin 30.2 pg (27.0-33.0); Mean Platelet Volume 11.3 fL (9.4-12.3); Monocytes Absolute Auto 0.6 X10*3/uL (0.1-1.2); Monocytes Percent Auto 6.3 % (2-11); Neutrophils Absolute Auto 6.4 x10*3/uL (2.0-8.3); Neutrophils Percent Auto 71.4 % (45-73); Platelet Count 222 X10*3/uL (160-400); Red Blood Count 4.84 X10*6/uL (4.20-5.50); Red Cell Distribution Width 13.9 % (11.0-16.0); White Blood Count 8.9 X10*3/uL (4.8-10.8)
[2022-08-29 14:35] LABS: Alanine Aminotransferase 12 U/L (0-31); Albumin Level 3.6 g/dL (3.5-5.0); Alkaline Phosphatase 92 U/L (39-117); Anion Gap 13 (12-20); Aspartate Amino Transferase 13 U/L (5-31); Bilirubin Total 0.4 mg/dL (0.0-1.0); Blood Urea Nitrogen 20 mg/dL (9-16); Carbon Dioxide 28 mmol/L (22-29); Chloride 104 mmol/L (96-108); Estimated Glomerular Filt Rate 57; Glucose Fasting 96 mg/dL (60-99); Potassium 3.8 mmol/L (3.3-5.1); Sodium 141 mmol/L (135-145); Total Protein 6.5 g/dL (6.5-8.0)
[2022-08-29 14:37] LABS: Estimated Average Glucose 103 mg/dL; Hemoglobin A1C 120.5196 umol/L; Hemoglobin A1c % 5.2 %
== END 2022-08-29 11:08 | disposition home or self-care (01) ==
LOC: HO.10HDL 11:07
PROVIDERS: Visit Provider Internal Medicine
DX: Z01.818 Encounter for other preprocedural examination (principal); R73.01 Impaired fasting glucose; E78.00 Pure hypercholesterolemia, unspecified
CPT/HCPCS: 36415; 80053; 83036; 85025

== ENCOUNTER 2022-09-05 12:48 | Outpatient (REF) | payer MEDICARE, SELFPAY ==
[2022-09-05 14:02] LABS: Appearance Urine Clear; Color Urine Yellow; Glucose Urine UA 100 mg/dL (Negative); Leukocyte Esterase Urine Negative (Negative); Nitrite Urine Negative (Negative); Specific Gravity - Urine 1.015 (1.005-1.025); UMIC TRIGGER UACC YES; Urine Blood Negative (Negative); Urine Ketones Negative (Negative); Urine Protein 300 (3+) mg/dL (Neg-Trace)
[2022-09-05 14:09] LABS: Bacteria Urine None Seen (None Seen); Hyaline Casts Urine 0-2 /LPF (0-2); RBC Urine 0-2 /HPF (0-2); Squamous Epithelial Cell Urine 0-2 /HPF (0-2); WBC Urine 0-5 /HPF (0-5)
== END 2022-09-05 12:49 | disposition home or self-care (01) ==
LOC: HO.10HDLNP 12:48
PROVIDERS: Visit Provider Internal Medicine
DX: I10 Essential (primary) hypertension (principal)
CPT/HCPCS: 81001; 81003

== ENCOUNTER → 2022-11-12 11:13 | Outpatient (BNVA) | payer MEDICARE, SELFPAY | PROVIDERS: PCP Internal Medicine; Visit Provider Orthopaedic Surgery | DX: S76.119D Strain of unspecified quadriceps muscle, fascia and tendon, subsequent encounter (principal); G47.62 Sleep related leg cramps; Z96.652 Presence of left artificial knee joint | CPT/HCPCS: 99212 ==

== ENCOUNTER 2023-04-05 12:47 | Outpatient (AMB) | payer MEDICARE, SELFPAY ==
--- NOTE | 2023-04-05 12:50 | A.OFFVIS_ITS ---
Intake Intake Visit Reasons: OV-Left knee pain Intake Note: Jaki is an 87 year old female who presents today for a follow up of the left knee s.p Left TKA 02/06/22 & Periprosthetic fx 03/28/22. She reports that her knee feels like there is fluid in it. Allergies atorvastatin Adverse Reaction (Intermediate, Verified 04/05/23 12:51) myalgias HPI OV-Left knee pain HPI Details Jaki Kulkarni is an 87-year-old female who presents today for a follow up of the left knee S/P Left TKA 02/06/22 & Periprosthetic fx 03/28/22. The patient reports her knee feels like there is fluid in it. She states she is unable to straighten the leg. She states she has pain the left foot digits. She confirms taking Tylenol arthritis OTC PRN, but it is only mildly aiding them. She have giving and pain in the left knee. She had post operative complications due to a fall. We did try to repair but failed. Patient ambulates with a walker. [facility] Medical History (Updated 11/12/22 @ 11:53 by Mino Arriola) Allergic rhinitis Anemia Benign essential hypertension Carotid bruit Chronic kidney disease (CKD), stage III (moderate) Coronary artery disease COVID-19 vaccine administered Current smoker Depression Edema Elevated TSH GERD without esophagitis History of COVID-19 Impaired fasting glucose Insomnia Iron deficiency anemia Knee osteoarthritis Obesity (BMI 30-39.9) Pure hypercholesterolemia Restrictive lung disease Tobacco abuse Vitamin D deficiency Surgical History History of hysterectomy Hx of bilateral cataract extraction Hx of cardiac cath Hx of colonoscopy Hx of total knee arthroplasty Family History Father Medical history unknown Mother CVD (cardiovascular disease) Social History Household Members: Family Household Members Other:: daughter & grandsons Housing: Condominium Are you a primary direct care supervisor to a significant other at home: No Do you presently have visiting nurse or other home services: No Alcohol intake: never Patient Tobacco Use Status: Current everyday Tobacco user Tobacco use type: Cigarette Cigarettes Per Day: 10 Years Smoked: 70 e-Cigarette/Vaping Use: Never Used Second Hand Smoke Exposure: Yes service: No Current occupational status: retired and disabled Cognitive needs: No (cane/walker) Hearing needs: No Vision needs: No Review of Systems Const All systems reviewed & are unremarkable except as noted in HPI and below Physical Exam Const General: cooperative, healthy appearing and no acute distress Orientation/consciousness: patient oriented x3 Resp Effort & Inspection: normal respiratory effort and able to speak in complete sentences Cardio Rate: regular rate Peripheral pulses: Peripheral pulses 2+ throughout GI Palpation (GI): Soft to palpation Skin General skin exam: no rashes or lesions noted Lesions: no lesions Rashes: no rashes Neuro General: patient oriented x3 Extrem Other: Left knee: Lacking 60 degrees of extension. Palpable defect on the proximal patella. Walks with an antalgic gait. Assessment & Plan Assessment & Plan (1) Status post total knee replacement, left: Code(s): Z96.652 - Presence of left artificial knee joint (2) Quadriceps tendon rupture: Code(s): S76.119A - Strain of unspecified quadriceps muscle, fascia and tendon, initial encounter Plan: Un-repairable injury. She is faring worse but surgery contraindicated and she is adamant that she does not want surgery. I referred to pain management. She agrees with plan. (3) Nocturnal leg cramps: Code(s): G47.62 - Sleep related leg cramps Medications: New [Orthpedic Shoes] As directed 1 ea 0RF S76.119A - Strain of unspecified quadriceps muscle, fascia and tendon, initial encounter, Z96.652 - Presence of left artificial knee joint Patient Instructions: Scribed for Dr. Abdelrahman Nicole by Meghan Moody, medical recruiter, on 03/26/2023 at 1:12 pm, EST. Coding Level of Care Code Est Pt Level 3 (55471) Diagnoses Status post total knee replacement, left Z96.652 Quadriceps tendon rupture S76.119A Nocturnal leg cramps G47.62
== END 2023-04-05 13:45 | disposition home or self-care (01) ==
LOC: HO.HOS 12:47
PROVIDERS: PCP Internal Medicine; Visit Provider Orthopaedic Surgery
DX: S76.119A Strain of unspecified quadriceps muscle, fascia and tendon, initial encounter (principal); Z96.652 Presence of left artificial knee joint
CPT/HCPCS: 99213

== ENCOUNTER → 2023-04-05 12:47 | Outpatient (BNVA) | payer MEDICARE, SELFPAY | PROVIDERS: PCP Internal Medicine; Visit Provider Orthopaedic Surgery | DX: M25.562 Pain in left knee (principal); M97.12XA Periprosthetic fracture around internal prosthetic left knee joint, initial encounter; Z96.652 Presence of left artificial knee joint | CPT/HCPCS: 99212 ==

== ENCOUNTER 2023-04-17 14:14 | Outpatient (AMB) | payer MEDICARE, SELFPAY ==
[2023-04-17 14:16] VITALS: BP 132/74; PULSE 92; O2SAT 94; BMI 29.2
--- NOTE | 2023-04-17 14:16 | MHC.PC.OV ---
Vital Signs 04/17/23 14:16 Height 5 ft 6 in Weight 181 lb 2 oz BMI 29.2 BP 132/74 Blood Pressure Location Lt brachial Position Sitting Pulse 92 Pulse Source Pulse Oximeter Pulse Oximetry (%) 94 Oxygen Delivery Method Room Air Intake Visit Reasons: Follow up-Rescheduled from 01/22 [employer] Sergeant Required: No Accompanied by: Self / Same As Patient Allergies atorvastatin Adverse Reaction (Intermediate, Verified 04/19/23 11:15) myalgias Medication List - Last Reconciled 04/17/23 by Irving Meneses MD acetaminophen 650 mg (2 x 325 mg) PO Q6H PRN 30 days amlodipine 10 mg PO DAILY blood pressure monitor (Blood Pressure Kit) As directed brimonidine 0.2% 1 drp ophthalmic (eye) TID celecoxib 200 mg PO BID PRN cholecalciferol (vitamin D3) (Vitamin D3) 25 mcg PO DAILY dextromethorphan-guaifenesin 10-200 mg (Mucinex Cough-Chest Congestion HBP) 1 tab-cap PO Q8H PRN docusate sodium 100 mg PO BID PRN 14 days hydrochlorothiazide 25 mg PO DAILY multivitamin with iron 1 tab PO DAILY omeprazole 20 mg PO DAILY [Orthpedic Shoes As directed] [Raised [place] Seat with handels As directed Osteoarthritis ] [RECLINER LIFT CHAIR use as directed; ] [ROLLATOR As directed] rosuvastatin 20 mg PO DAILY 90 days tizanidine 2 mg PO BEDTIME PRN zolpidem 10 mg PO BEDTIME PRN 30 days Tobacco use date assessed: 04/17/23 Fall risk assessment: No Falls in past year Last assessed Fall Risk: 04/17/23 Dental Screening Dental Screen Date: 04/17/23 Did you have a dental visit in the last 12 months?: Yes Did you have a dental problem in the last 6 months where you did not have access to dental care?: No Was dental information given to patient?: Patient has dentist HPI Follow up-Rescheduled from 01/22 HPI Details Patient comes in today for her follow up visit - was last seen by me over a year ago in December 2021 when she was getting ready to have her left knee replacement surgery done She eventually had her total left knee arthroplasty done with Dr. Nicole on 02/06/2022 She recalls that she was progressing well after surgery and was undergoing physical therapy in early March when she suddenly tore her quadriceps tendon while doing physical therapy She subsequently underwent left quadriceps tendon repair on 03/27/2022 but she never completely recovered from her injury as she continues to experience pain and discomfort in her knee over the past year States that she has been experiencing frequent cramping in her legs lately and would like to get a prescription again for Tizanidine Would also like to get a refill on her Tylenol for her knee pain She was seen by Orthopedics for follow-up a couple of weeks ago and was subsequently referred to pain management for her chronic knee symptoms and she is scheduled to be seen by pain management in a couple of days States that she feels okay otherwise She denies any headaches or dizziness Denies any chest pains, no shortness of breath No nausea / vomiting, no abdominal pain No change in bowel habits noted States that she has also been experiencing urinary frequency lately but denies any dysuria She was also seen by optometry earlier this year and was found to have 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 and hypertensive retinopathy bilaterally - was advised to follow up closely with PCP and have her blood pressure controlled better She is also requesting a referral for her hearing as she has been experiencing difficulty hearing lately [facility] Medical History (Updated 04/23/23 @ 02:37 by Irving Meneses MD) Allergic rhinitis Anemia Benign essential hypertension Carotid bruit Chronic kidney disease (CKD), stage III (moderate) Coronary artery disease COVID-19 vaccine administered Current smoker Depression Edema Elevated TSH GERD without esophagitis History of COVID-19 Impaired fasting glucose Insomnia Iron deficiency anemia Knee osteoarthritis Obesity (BMI 30-39.9) Overweight (BMI 25.0-29.9) Pure hypercholesterolemia Restrictive lung disease Tobacco abuse Vitamin D deficiency Surgical History History of hysterectomy Hx of bilateral cataract extraction Hx of cardiac cath Hx of colonoscopy Hx of total knee arthroplasty Family History Father Medical history unknown Mother CVD (cardiovascular disease) Social History Household Members: Family Household Members Other:: daughter & grandsons Housing: Condominium Are you a primary transitional care liaison to a significant other at home: No Do you presently have visiting nurse or other home services: No Alcohol intake: never Patient Tobacco Use Status: Current everyday Tobacco user Tobacco use type: Cigarette Cigarettes Per Day: 10 Years Smoked: 70 e-Cigarette/Vaping Use: Never Used Second Hand Smoke Exposure: Yes service: No Current occupational status: retired and disabled Cognitive needs: No (cane/walker) Hearing needs: No Vision needs: No Questionnaire PHQ-9 Over the last 2 weeks, how often have you been bothered by any of the following problems? 1. Little interest or pleasure in doing things: not at all 2. Feeling down, depressed, or hopeless: not at all 3. Trouble falling or staying asleep, or sleeping too much: not at all 4. Feeling tired or having little energy: not at all 5. Poor appetite or overeating: not at all 6. Feeling bad about yourself - or that you are a failure or have let yourself or your family down: not at all 7. Trouble concentrating on things, such as reading the newspaper or watching television: not at all 8. Moving or speaking so slowly that other people could have noticed. Or the opposite - being so fidgety or restless that you have been moving around a lot more than usual: not at all 9. Thoughts that you would be better off or of hurting yourself in some way: not at all Total score: 0 Depression Screening Interpretation: Negative 30305 - PHQ-9 Billing: Yes Source: Developed by Drs. Phan Vallecillo, Nkechi Iyer, Alonso Cuevas and colleagues, with an educational emilie from [employer]. Thrive Questionnaire Date Thrive assessed: 04/17/23 I am a: Patient What is your living situation today?: I have a steady place to live Within the past 12 months, did the food you bought not last and you didn't have the money to get more?: Never true Within the past 12 months, did you worry whether your food would run out before you got money to buy more?: Never true Do you have trouble paying for medicines?: No Do you have trouble getting transportation to medical appointments?: No Do you have trouble paying your heating and electricity bill?: No Do you have trouble taking care of your child, family member or friend?: No Do you have trouble with day-to-day activities such as bathing, preparing meals, shopping, managing finances, etc.?: No Are you currently unemployed and looking for a job?: No Are you interested in more education?: No Please select the resources that you would like help with: None Currently or been in a relationship where the following occur: no concerns reported AUDIT C Alcohol Use Questionnaire (AUDIT-C) 1. How often do you have a drink containing alcohol?: Never 3. How often do you have six or more drinks on one occasion?: Never Total Score: 0 Score Reviewed/Action Taken: Yes ISIS-7 AMB Questionnaire ISIS-7 Date ISIS - 7 assessed: 04/17/23 Feeling nervous, anxious, or on edge: 0 = Not at all Not being able to stop or control worryin = Not at all Worrying too much about different things: 0 = Not at all Trouble relaxin = Not at all Being so restless that it is hard to sit still: 0 = Not at all Becoming easily annoyed or irritable: 0 = Not at all Feeling afraid as if something awful might happen: 0 = Not at all Total ISIS-7 score (0-4 normal; 5-9 mild; 10-14 moderate; 15-21 severe): 0 Source: Developed by Drs. Phan Vallecillo, Nkechi Iyer, Alonso Cuevas and colleagues, with an educational emilie from [employer]. Review of Systems Const Denies chills, Denies fatigue, Denies fever(s) and Denies headache(s) ENT Denies dysphagia, Denies dizziness, Denies otalgia, Denies headache(s), Reports hearing loss (especially in the left ear), Denies neck pain, Denies odynophagia and Denies sore throat Card Denies chest pain, Denies palpitations and Denies dyspnea Resp Denies cough and Denies dyspnea GI Denies abdominal pain, Denies constipation, Denies dysphagia, Denies heartburn, Denies diarrhea, Denies nausea, Denies odynophagia and Denies vomiting Denies difficulty voiding, Reports nocturia, Denies dysuria and Reports urinary urgency Musc Denies back pain, Reports arthralgias (left knee) and Denies neck pain Skin/Breast Details: (+) large dark mole on the right side of the forehead just adjacent to the right eye - mole appears to have gotten bigger in size lately Neuro Denies dizziness and Denies headache(s) Endo Denies fatigue and Denies palpitations Physical exam (Primary Care) Vital Signs: Last Vital Signs Pulse 92 04/17/23 14:16 BP 132/74 04/17/23 14:16 Pulse Ox 94 04/17/23 14:16 Oxygen Delivery Method Room Air 04/17/23 14:16 BMI result Body Mass Index 29.2 Tobacco/Smoking Status: Tobacco use Status Tobacco use date assessed 04/17/23 04/17/23 14:25 Patient Tobacco Use Status Current everyday Tobacco 04/17/23 14:25 Tobacco use type Cigarette 04/17/23 14:25 e-Cigarette/Vaping Use Never Used 04/17/23 14:25 PHQ-9: PHQ-9 Score PHQ-9: Total score 0 04/22/23 22:24 Depression Screening Interpretation: Negative Thrive Assessment: Date of Thrive Assessment Date Thrive assessed 04/17/23 04/17/23 14:25 Currently or been in a relationship where the following occur: no concerns reported Const General: no acute distress and alert HENMT Ears: TM's normal bilaterally and EAC's normal Throat: Yes posterior oropharynx normal and Yes tonsils normal (no TP congestion noted) Neck Neck: Yes no lymphadenopathy and Yes supple Resp Auscultation: clear to auscultation bilaterally, no rales and no wheezes Cardio Rate: regular rate Rhythm: regular rhythm Heart sounds: no murmurs GI Palpation (GI): Soft to palpation and nontender Auscultation: normal bowel sounds Skin Other: (+) large dark mole on the right side of the forehead just adjacent to the right eye Extrem General: Yes no clubbing, cyanosis or edema Left lower extremity: knee Details: tenderness and swelling (mild) Results AMB Random Glucose (hemocue) AMB Random Glucose (hemocue) 135 mg/dL Last Edit by Darek Lopez on 04/17/23 15:02 AMB Hemoglobin A1c AMB Hemoglobin A1c 5.7 % Last Edit by Darek Lopez on 04/17/23 15:05 Results Reviewed Results Reviewed: Laboratory Last Values Random Glu (Clinic) 135 mg/dL 04/17/23 14:59 Hgb A1c (Clinic) 5.7 % (4.0-6.0) 04/17/23 14:59 Assessment and Plan Assessment & Plan (1) Coronary artery disease: Comment: Previous inferoposterior wall PR. She reports that she underwent PCI 2004. I looked to [employer] system but the reports are not available for the cardiac catheterization which was done at that time. Code(s): I25.10 - Atherosclerotic heart disease of [place] coronary artery without angina pectoris Qualifiers: Associated angina: without angina Coronary Disease-Associated Artery/Lesion type: [place] artery [place] vs. transplanted heart: [place] heart Qualified Code(s): I25.10 - Atherosclerotic heart disease of [place] coronary artery without angina pectoris Plan: Continue low dose Aspirin 81 mg QD Patient underwent Lexiscan a couple of years ago (2020) - study did not show any perfusion defect? Clinically, patient has some peripheral edema as well as carotid disease but is not in heart failure at this time (2) Pure hypercholesterolemia: Code(s): E78.00 - Pure hypercholesterolemia, unspecified Plan: Reinforced low cholesterol diet Has not had her fasting lipids checked since December 2021 Continue Rosuvastatin 20 mg QD Will recheck her labs and fasting lipids in 4 months for follow up (3) Benign essential hypertension: Code(s): I10 - Essential (primary) hypertension Plan: Reinforced low-sodium diet -? goal is systolic BP of at least 140 to 150 mm Continue Hydrochlorothiazide 25 mg QD and Amlodipine 5 mg QD; her Metoprolol tartrate 100 mg BID was previously discontinued Patient has been advised that her blood pressure is not adequately controlled but she states that her blood pressure tends to go up when her knee pain acts up She is advised to continue monitor blood pressure closely (4) Chronic kidney disease (CKD), stage III (moderate): Code(s): N18.30 - Chronic kidney disease, stage 3 unspecified Qualifiers: Chronic kidney disease stage 3 subtype: stage 3b (GFR 30-44) Qualified Code(s): N18.32 - Chronic kidney disease, stage 3b Plan: GFR was stable previously - will continue to monitor her renal function regularly (5) Knee osteoarthritis: Code(s): M17.10 - Unilateral primary osteoarthritis, unspecified knee Qualifiers: Laterality: bilateral Osteoarthritis type: primary Qualified Code(s): M17.0 - Bilateral primary osteoarthritis of knee Plan: S/P total left knee arthroplasty with Dr. Nicole on 02/06/2022 but unfortunately she tore her left quadriceps tendon while doing physical therapy for her knee post-op She then underwent left quadriceps tendon repair on 03/27/2022 but has never completely recovered from her knee injury and she currently continues to experience frequent knee pain and on and off swelling She has been referred to pain management by Orthopedics and she will be seen in a couple of days (6) Impaired fasting glucose: Code(s): R73.01 - Impaired fasting glucose Plan: RBS in the office today is at 139 mg/dl and in-office HgbA1c today is at 5.7%; HgbA1c was normal at 5.4% when last checked a year ago but she has gotten as high as 6.2% in the past Reinforced low calorie diet/exercise as tolerated (7) Vitamin D deficiency: Code(s): E55.9 - Vitamin D deficiency, unspecified Plan: Continue Vitamin D2 79936 units daily (8) Anemia: Code(s): D64.9 - Anemia, unspecified Qualifiers: Anemia type: iron deficiency Iron deficiency anemia type: inadequate dietary iron intake Qualified Code(s): D50.8 - Other iron deficiency anemias Plan: Continue Ferrous sulfate 325 mg QD Will recheck her CBC in 4 months for follow-up (9) GERD without esophagitis: Code(s): K21.9 - Gastro-esophageal reflux disease without esophagitis Plan: Dietary restrictions reinforced Continue Omeprazole 20 mg QD (10) Elevated TSH: Code(s): R79.89 - Other specified abnormal findings of blood chemistry Plan: Patient was clinically euthyroid and TSH was normal on her previous labs Free T4 level has also remained normal when previously checked Will continue to monitor her TFTs regularly (11) Allergic rhinitis: Code(s): J30.9 - Allergic rhinitis, unspecified Qualifiers: Allergic rhinitis seasonality: unspecified Allergic rhinitis trigger: unspecified Qualified Code(s): J30.9 - Allergic rhinitis, unspecified Plan: Continue Loratadine 10 mg QD PRN (12) Skin mole: Code(s): D22.9 - Melanocytic nevi, unspecified Plan: Will refer her to Dermatology for further evaluation and management of the large, hyperpigmented mole to the side of her right eye (13) Overactive bladder: Code(s): N32.81 - Overactive bladder Plan: Will start her on a trial of Toviaz ER 4 mg QD (14) Insomnia: Code(s): G47.00 - Insomnia, unspecified Qualifiers: Insomnia type: unspecified Qualified Code(s): G47.00 - Insomnia, unspecified Plan: Sleep hygiene reinforced Continue Zolpidem 10 mg Q HS PRN (15) Smoker: Code(s): F17.200 - Nicotine dependence, unspecified, uncomplicated Plan: Counseled again on smoking cessation (16) Overweight (BMI 25.0-29.9): Code(s): E66.3 - Overweight Plan: Reinforced diet; exercises and weight loss are unrealistic given patient's comorbidities and chronic left knee issues Plan Follow up in 4 months Orders: Orders Complete Blood Count Auto Diff 4 Months I10 - Essential (primary) hypertension Comprehensive [place]. Panel Fast 4 Months E78.00 - Pure hypercholesterolemia, unspecified Lipid Panel 4 Months E78.00 - Pure hypercholesterolemia, unspecified TSH reflex Free T4 4 Months E78.00 - Pure hypercholesterolemia, unspecified UA CC w/rflx Micro + Cult 4 Months R30.0 - Dysuria Vitamin D 25-OH Total 4 Months E55.9 - Vitamin D deficiency, unspecified Hemoglobin A1c 4 Months R73.9 - Hyperglycemia, unspecified AMB Hemoglobin A1c 04/17/23 Z13.9 - Encounter for screening, unspecified AMB Random Glucose (hemocue) 04/17/23 Z13.9 - Encounter for screening, unspecified Referrals Speech and Hearing Referral H91.90 - Unspecified hearing loss, unspecified ear Dermatology Referral D22.9 - Melanocytic nevi, unspecified Medications: New fesoterodine ER (Toviaz) 4 mg PO DAILY 30 days 30 tabs 3RF Changed From acetaminophen 650 mg (2 x 325 mg) PO Q6H 30 days PRN 240 tabs 0RF Pain, Mild (Pain Scale 1-3) To acetaminophen Take NO MORE than 2000 mg of Acetaminophen DAILY 650 mg (2 x 325 mg) PO Q6H 30 days PRN 240 tabs 3RF increased pain From tizanidine 2 mg PO BEDTIME PRN 30 tabs 0RF muscle spasms/leg cramps To tizanidine 2 mg PO BID 30 days PRN 60 tabs 2RF muscle spasms/leg cramps Coding Level of Care Code Est Pt Level 4 (25403) Diagnoses Coronary artery disease I25.10 Associated angina: without angina Coronary Disease-Associated Artery/Lesion type: [place] artery [place] vs. transplanted heart: [place] heart Pure hypercholesterolemia E78.00 Benign essential hypertension I10 Chronic kidney disease (CKD), stage III (moderate) N18.32 Chronic kidney disease stage 3 subtype: stage 3b (GFR 30-44) Knee osteoarthritis M17.0 Laterality: bilateral Osteoarthritis type: primary Impaired fasting glucose R73.01 Vitamin D deficiency E55.9 Anemia D50.8 Anemia type: iron deficiency Iron deficiency anemia type: inadequate dietary iron intake GERD without esophagitis K21.9 Elevated TSH R79.89 Allergic rhinitis J30.9 Allergic rhinitis seasonality: unspecified Allergic rhinitis trigger: unspecified Skin mole D22.9 Overactive bladder N32.81 Insomnia G47.00 Insomnia type: unspecified Smoker F17.200 Overweight (BMI 25.0-29.9) E66.3
== END 2023-04-17 15:11 | disposition home or self-care (01) ==
PROVIDERS: PCP Internal Medicine; Visit Provider Internal Medicine
DX: I25.10 Atherosclerotic heart disease of native coronary artery without angina pectoris (principal); E78.00 Pure hypercholesterolemia, unspecified; I10 Essential (primary) hypertension; R73.01 Impaired fasting glucose; D64.9 Anemia, unspecified; N32.81 Overactive bladder
CPT/HCPCS: 82948; 83036; 99214

== ENCOUNTER 2023-04-19 10:53 | Outpatient (AMB) | payer MEDICARE, SELFPAY ==
--- NOTE | 2023-04-19 11:06 | A.OFFVIS_ITS ---
Intake Vital Signs 04/19/23 11:11 Height 5 ft 6 in Weight 178 lb 6 oz BMI 28.8 BP 198/81 H Blood Pressure Location Lt brachial Position Sitting Pulse 91 Pulse Source Pulse Oximeter Pulse Oximetry (%) 97 Oxygen Delivery Method Room Air Intake Visit Reasons: Strain of unspecified quadriceps muscle Allergies atorvastatin Adverse Reaction (Intermediate, Verified 04/19/23 11:15) myalgias HPI Strain of unspecified quadriceps muscle HPI Details Patient is a pleasant 87 years old female with history of left TKA 02/06/22 with post-operative complications due to fall and unsuccessful attempt to repair it, presents today with chronic left knee pain. Patient has been referred to us by Orthopedics and states she is not interested in additional surgery. Patient states she is unable to straighten the leg. Denies any recent trauma, injury or falls. Patient reports anterior knee pain which is constant all day but partially is relieved while sitting. She has been taking over the counter extra strength Tylenol and ice pack applications with mild pain relief. Reports she has not gained significant function or pain relief with recent physical therapy and home PT. She also reports arthritis related pain in both feet and right knee but not as bad as left knee pain. Pain interferes with her daily activities, functioning, sleep, mood and social interactions. Denies any fever, back pain, numbness, tingling, bladder or bowel dysfunction, or saddle anesthesia. Location Left knee radiates down lower leg Duration Chronic pain worsening for the past 2 years Characteristics of symptom or complaint Aching, electric, shooting pain, cramping Aggravating or associated factors Walking, climbing stairs, movements, bending Relieving factors Tylenol, Asper cream, walker, ice packs Treatment PT and Home PT, mild improvement and temporary PFSH Medical History Allergic rhinitis Anemia Benign essential hypertension Carotid bruit Chronic kidney disease (CKD), stage III (moderate) Coronary artery disease COVID-19 vaccine administered Current smoker Depression Edema Elevated TSH GERD without esophagitis History of COVID-19 Impaired fasting glucose Insomnia Iron deficiency anemia Knee osteoarthritis Obesity (BMI 30-39.9) Pure hypercholesterolemia Restrictive lung disease Tobacco abuse Vitamin D deficiency Surgical History History of hysterectomy Hx of bilateral cataract extraction Hx of cardiac cath Hx of colonoscopy Hx of total knee arthroplasty Family History Father Medical history unknown Mother CVD (cardiovascular disease) Social History Household Members: Family Household Members Other:: daughter & grandsons Housing: [facility] Are you a primary care transition coordinator to a significant other at home: No Do you presently have visiting nurse or other home services: No Alcohol intake: never Patient Tobacco Use Status: Current everyday Tobacco user Tobacco use type: Cigarette Cigarettes Per Day: 10 Years Smoked: 70 e-Cigarette/Vaping Use: Never Used Second Hand Smoke Exposure: Yes service: No Current occupational status: retired and disabled Cognitive needs: No (cane/walker) Hearing needs: No Vision needs: No Review of Systems Const All systems reviewed & are unremarkable except as noted in HPI and below Physical Exam Vital Signs: Last Vital Signs Pulse 91 04/19/23 11:11 BP 198/81 H 04/19/23 11:11 Pulse Ox 97 04/19/23 11:11 Oxygen Delivery Method Room Air 04/19/23 11:11 BMI result Body Mass Index 28.8 General: Appears afebrile. Alert and oriented. Mood and affect appropriate. Follows and participates in conversation appropriately. Respiratory effort is unlabored. Able to transition from sit to stand unassisted. Results Reviewed Results Reviewed: XR KNEE, LEFT 07/09/22 CLINICAL INFORMATION: Left knee pain COMPARISON: Previous x-ray most recent April 2022 TECHNIQUE: Two views of the left knee. FINDINGS: Osteopenia. There is a 3 component left knee replacement. This appears unchanged. There may be inferiorly positioned of the patellar component. There is bone loss adjacent to the superior aspect of the patella prosthesis component. There are multiple soft tissue ossifications seen more superiorly again questionable for displaced fracture fragment. Some of this may represent ossified intra-articular loose bodies soft tissue calcifications or ossifications. There is soft tissue swelling anterior to the patella. There is a joint effusion. This does not appear appreciably changed from most recent exam April 2022. IMPRESSION: 3 component left knee replacement. Osteopenia. Probable displaced fracture of the superior patella unchanged from most recent exam April 2022. Joint effusion and prepatellar soft tissue swelling. Assessment & Plan Assessment & Plan (1) Primary osteoarthritis of left knee: Code(s): M17.12 - Unilateral primary osteoarthritis, left knee (2) Status post total knee replacement, left: Code(s): Z96.652 - Presence of left artificial knee joint (3) Left knee pain: Code(s): M25.562 - Pain in left knee Plan Discussed interventional treatments for chronic left knee pain status post TKA and post fall injury with attempted and failed repair per Orthopedic referral. Discussed peripheral nerve stimulation and genicular RFA procedures if positive responses to diagnostic nerve blocks. Patient is not interested in therapeutic injections and has main concern to seek treatments to help her straighten her left leg as this has been painful for her status post fall. Informational pamphlets were provided to patient and her family. Patient will notify our office with her decision. Encouraged to continue home exercise program to strengthen and support her lower extremities. All questions and concerns have been answered and patient agreed with the plan. Follow up as needed. Medications: New diclofenac sodium 1% (Arthritis Pain (diclofenac)) apply to single knee, ankle, foot; for foot includes sole/toes/top of foot 4 grams topical QID PRN 100 grams 1RF pain M17.12 - Unilateral primary osteoarthritis, left knee, M25.562 - Pain in left knee, Z96.652 - Presence of left artificial knee joint Coding Level of Care Code New Pt Level 4 (83492) Diagnoses Primary osteoarthritis of left knee M17.12 Status post total knee replacement, left Z96.652 Left knee pain M25.562
[2023-04-19 11:11] VITALS: BP 198/81; PULSE 91; O2SAT 97; BMI 28.8
== END 2023-04-19 11:36 | disposition home or self-care (01) ==
PROVIDERS: PCP Internal Medicine; Visit Provider Nurse Practitioner Family
DX: M17.12 Unilateral primary osteoarthritis, left knee (principal); Z96.652 Presence of left artificial knee joint; M25.562 Pain in left knee
CPT/HCPCS: 99204

== ENCOUNTER → 2023-04-19 10:53 | Outpatient (BNVA) | payer MEDICARE, SELFPAY | PROVIDERS: PCP Internal Medicine; Visit Provider Nurse Practitioner Family ==

== ENCOUNTER 2023-08-17 17:40 | Inpatient (IN) | payer MEDICARE, OTHER, SELFPAY ==
--- NOTE | ~2023-08-17 | XR_ITS ---
X-RAY BILATERAL KNEES CLINICAL HISTORY: Pain. COMPARISON: Radiograph bilateral knees 05/14/2022. Radiograph left knee 07/09/2022. TECHNIQUE: 2 views of each knee were obtained. FINDINGS: Right knee: No acute fractures or subluxation. Mild joint space narrowing of the medial compartment, and moderate to severe joint space narrowing of the patellofemoral compartment. Minimal marginal osteophytes. No osseous erosions. No unusual soft tissue calcifications. No joint effusion. Scattered vascular calcifications in the posterior fossa. Left knee: Again noted 3 component total left knee arthroplasty. No evidence of hardware fracture or increased jose hardware lucency to suspect infection/malfunction. No joint effusion. Decreased number of calcific/ossific densities in the anterior compartment of the knee superior to the patella compared to prior. XR/XR knee LT 2V IMPRESSION: RIGHT KNEE: 1. No acute fractures or subluxation. 2. Mild to moderate degenerative osteoarthritis. LEFT KNEE: Intact total left knee arthroplasty. No evidence of hardware failure. Decreased number of calcific/ossific densities in the anterior compartment of the knee.
--- NOTE | ~2023-08-17 | XR_ITS ---
X-RAY BILATERAL KNEES CLINICAL HISTORY: Pain. COMPARISON: Radiograph bilateral knees 05/14/2022. Radiograph left knee 07/09/2022. TECHNIQUE: 2 views of each knee were obtained. FINDINGS: Right knee: No acute fractures or subluxation. Mild joint space narrowing of the medial compartment, and moderate to severe joint space narrowing of the patellofemoral compartment. Minimal marginal osteophytes. No osseous erosions. No unusual soft tissue calcifications. No joint effusion. Scattered vascular calcifications in the posterior fossa. Left knee: Again noted 3 component total left knee arthroplasty. No evidence of hardware fracture or increased jose hardware lucency to suspect infection/malfunction. No joint effusion. Decreased number of calcific/ossific densities in the anterior compartment of the knee superior to the patella compared to prior. XR/XR knee RT 2V IMPRESSION: RIGHT KNEE: 1. No acute fractures or subluxation. 2. Mild to moderate degenerative osteoarthritis. LEFT KNEE: Intact total left knee arthroplasty. No evidence of hardware failure. Decreased number of calcific/ossific densities in the anterior compartment of the knee.
--- NOTE | ~2023-08-17 | XR_ITS ---
EXAMINATION: PORTABLE CHEST 1 VIEW CLINICAL INFORMATION: Fever and cough. COMPARISON: No recent pertinent prior studies are available for comparison. TECHNIQUE: Portable frontal view of the chest was obtained. FINDINGS: The lungs are well expanded. Chronic appearing reticular markings seen. No focal infiltrate, effusion, edema, or pneumothorax. Cardiac and mediastinal silhouettes are within normal limits for size with vascular calcification in aorta. No acute bony abnormality seen. XR/XR chest 1V IMPRESSION: Chronic appearing changes but no acute superimposed airspace disease.
--- NOTE | ~2023-08-17 | CT_ITS ---
EXAMINATION: CTA CHEST PE STUDY CLINICAL INFORMATION: hypoxia, covid+ COMPARISON: No pertinent prior studies are available for comparison. TECHNIQUE: Prior to contrast administration, noncontrast localization images were obtained. After the administration of 65 mL of Omnipaque nonionic IV contrast, contiguous thin slice helical images were obtained through the thorax. Reformatted MIP images in the coronal and sagittal planes were obtained at the acquisition workstation. This CT examination was performed using dose optimization techniques as appropriate, variously including the following: *Automated exposure control *Adjustment of mA and/or kV according to patient size (this includes techniques or standardized protocols for targeted exams where dose is matched to indication/reason for exam; i.e. extremities or head) *Use of iterative reconstruction technique DLP: 308 mGy-cm. FINDINGS: The bolus timing on this study was acceptable for visualization of the pulmonary arterial tree. Respiratory motion artifact limits the assessment but I do not appreciate any evidence for central pulmonary emboli. The subsegmental and distal branches are more obscured by motion artifact but no obvious pulmonary emboli seen. Calcific granuloma at the right lung base. Otherwise the lungs are clear. No abnormal pulmonary nodules or masses are appreciated. No significant hilar or mediastinal adenopathy. There is no evidence of pleural effusion or pneumothorax. The heart is normal in size. No evidence of ventricular septal bowing or right heart strain. Prominent vascular atherosclerotic disease in the aorta. There is no pericardial effusion or pericardial thickening. Limited evaluation of the upper abdominal viscera is unremarkable. CT/CT angio chest PE protocol IMPRESSION: 1. Respiratory motion artifact limits the assessment but I do not appreciate any evidence for central pulmonary emboli. The subsegmental and distal branches are obscured by motion artifact but no obvious pulmonary emboli seen. 2. No focal airspace disease. 3. VTE: Negative.
[2023-08-17 17:50] VITALS: BP 160/100; BP 182/64; PULSE 116; PULSE 119; RESP 20; TEMP 39.3; O2SAT 93; O2SAT 95; BMI 30.4
--- NOTE | 2023-08-17 18:08 | ECG_ITS ---
Test Reason : GENERALIZED WEAKNESS Blood Pressure : / mmHG Vent. Rate : 109 BPM Atrial Rate : 109 BPM P-R Int : 148 ms QRS Dur : 072 ms QT Int : 336 ms P-R-T Axes : 067 040 025 degrees QTc Int : 452 ms Sinus tachycardia Otherwise normal ECG When compared with ECG of 18-JAN-2022 12:30, No significant change was found Referred By: Jefferson Marie Electronically Signed By:CYNTHIA BOWER
--- NOTE | 2023-08-17 18:09 | ED.GENADULT ---
HPI - General Adult General Chief complaint: Weakness Stated complaint: UNABLE TO AMBULATE, INCREASED URINATION Time Seen by Provider: 08/17/23 17:46 Source: patient, family (Daughter) and EMS Mode of arrival: EMS Limitations: no limitations History of Present Illness HPI narrative: 87-year-old female came in by ambulance for evaluation of inability to ambulate. And feeling generalized malaise with generalized weakness. Patient lives home with her daughter with a limited mobility walk with a walker, s/p left total knee replacement due to knee OA, patient stated that the right knee now is a problem and causing her not to ambulate today, patient otherwise declined any fever, chills, runny nose, coughing, sneezing, headache, CP, SOB, abdominal pain. Patient in the emergency department found to be tachycardic and febrile. Related Data Home Medications Medication Instructions Recorded Confirmed cholecalciferol (vitamin D3) 25 25 mcg PO DAILY 07/21/21 08/17/23 mcg (1,000 unit) capsule (Vitamin D3) multivitamin with iron 1 tab PO DAILY 07/21/21 08/17/23 brimonidine 0.2 % eye drops 1 drp ophthalmic (eye) TID macular 04/17/23 08/17/23 degeneration celecoxib 200 mg capsule 200 mg PO BID PRN pain 04/17/23 08/17/23 dextromethorphan-guaifenesin 10 1 tab-cap PO Q8H PRN Cough 04/17/23 08/17/23 mg-200 mg capsule (Mucinex Cough-Chest Congestion HBP) Previous Rx's Medication Instructions Recorded RECLINER LIFT CHAIR #1 ea 07/26/20 docusate sodium 100 mg capsule 100 mg PO BID PRN constipation 14 02/07/22 days #30 caps Raised Toliet Seat with handels #1 ea 02/08/22 ROLLATOR #1 ea 10/23/22 blood pressure monitor (Blood #1 ea 10/23/22 Pressure Kit) zolpidem 10 mg tablet 10 mg PO BEDTIME PRN insomnia 30 11/05/22 days #30 tabs omeprazole 20 mg capsule,delayed 20 mg PO DAILY #90 caps 12/14/22 release Orthpedic Shoes #1 ea 04/12/23 acetaminophen 325 mg tablet 650 mg (2 x 325 mg) PO Q6H PRN 04/17/23 increased pain 30 days #240 tabs rosuvastatin 20 mg tablet 20 mg PO DAILY 90 days #90 tabs 04/29/23 amlodipine 10 mg tablet 10 mg PO DAILY #90 tabs 06/04/23 hydrochlorothiazide 25 mg tablet 25 mg PO DAILY #90 tabs 07/01/23 fesoterodine 4 mg tablet,extended 4 mg PO DAILY 30 days #30 tabs 07/26/23 release 24 hr (Toviaz) gabapentin 100 mg capsule 100 mg PO BID 30 days #60 caps 07/26/23 tizanidine 2 mg tablet 2 mg PO BID PRN muscle spasms/leg 07/26/23 cramps 30 days #60 tabs diclofenac sodium 1 % topical gel 4 g topical QID PRN for pain #100 08/03/23 grams Allergies Allergy/AdvReac Type Severity Reaction Status Date / Time atorvastatin AdvReac Intermediate myalgias Verified 04/19/23 11:15 Review of Systems Review of Systems: All other systems are reviewed and are negative Constitutional: Reports as per HPI and Reports no additional constitutional complaints Eyes: Reports as per HPI and Reports no additional eye complaints Reports system reviewed and no additional complaints, except as documented Cardiovascular: Reports as per HPI and Reports no additional cardiovascular complaints Respiratory: Reports as per HPI and Reports no additional respiratory complaints Gastrointestinal: Reports as per HPI and Reports no additional gastrointestinal complaints Genitourinary: Reports no additional female genitourinary complaints Musculoskeletal: Reports no additional musculoskeletal complaints Skin/Breast: Reports system reviewed and no additional complaints, except as docu Psychiatric: Reports no additional psychiatric complaints Endocrine: Reports no additional endocrine complaints Hematologic/Lymphatic: Reports no additional hematologic/lymphatic complaints Allergic/Immunologic: Reports no additional allergic/immunologic complaints Reports system reviewed and no additional complaints, except as documented and Reports Abnormal speech present [facility] Past Medical History Medical History Overweight (BMI 25.0-29.9) COVID-19 vaccine administered History of COVID-19 Restrictive lung disease Edema Current smoker Iron deficiency anemia Tobacco abuse Carotid bruit Obesity (BMI 30-39.9) Depression Insomnia Allergic rhinitis Elevated TSH GERD without esophagitis Impaired fasting glucose Anemia Knee osteoarthritis Vitamin D deficiency Chronic kidney disease (CKD), stage III (moderate) Pure hypercholesterolemia Benign essential hypertension Coronary artery disease Surgical History Hx of total knee arthroplasty Hx of colonoscopy Hx of cardiac cath Hx of bilateral cataract extraction History of hysterectomy Family History Family History Father Medical history unknown Mother CVD (cardiovascular disease) Social History Social History Household Members: Family Household Members Other:: daughter & grandsons [facility] Are you a primary long term care administrator to a significant other at home: No Do you presently have visiting nurse or other home services: No Alcohol intake: never Comment: aware of trip hazard Patient Tobacco Use Status: Current everyday Tobacco user Tobacco use type: Cigarette Cigarettes Per Day: 10 Years Smoked: 70 Smoked in Last 30 Days: Yes e-Cigarette/Vaping Use: Never Used Second Hand Smoke Exposure: Yes Use of substances other than those prescribed or required for medical reasons: No Advance Directives: No Advance Directives Information Provided: Yes service: No Current occupational status: retired and disabled Cognitive needs: No (cane/walker) Hearing needs: No Vision needs: No Physical Exam ED Vital Signs: Vital Signs - 24 hr 08/17/23 17:50 08/17/23 21:22 08/18/23 00:51 Temperature 102.8 F H 100.0 F 98.5 F Pulse Rate 119 H 108 H Respiratory Rate 20 24 H Blood Pressure 182/64 H 175/69 H Pulse Oximetry 93 90 L Oxygen Delivery Method Room Air Nasal Cannula BMI result Body Mass Index 30.4 Vital signs have been reviewed and appear to be correct. Blood pressure elevated. Heart rate elevated. Respiratory rate normal. Temperature elevated. Oxygen saturation normal. Appearance: Alert. Oriented X3. No acute distress. Head: Normal external exam. Normocephalic. Atraumatic. No Altman signs noted. No raccoon eyes noted Eyes: PERRLA. EOMI. Conjunctiva and sclera normal. Eyelids normal. ENT: TM's Normal. Pharynx normal. Uvula midline. Moist mucous membranes. No trismus noted. No drooling noted. No muffled voice noted. Neck: Normal inspection. Neck supple. FROM. No adenopathy. Thyroid Normal. No meningeal signs. No neck mass noted. CVS: Normal heart rate and rhythm. Heart sound normal. No murmurs noted. Pulses normal throughout. Respiratory: No respiratory distress. Painless inspiration. Breath sounds normal. No wheezes/rales/rhonchi noted. Chest nontender. No accessory muscle usage noted or decreased air movement noted. Abdomen: Soft and nontender. Bowel sounds normal in all 4 quadrants. No distention noted. No organomegaly noted. No visible injury noted. Back: No CVA tenderness. Full range of motion noted. Skin: Skin warm and dry. Normal skin color. Normal skin turgor. No rashes/lesions/lacerations noted. Extremities: No lower extremity edema. Extremities exhibit normal range of motion. Extremities nontender. Neuro: Oriented X 3. Cranial nerve exam: II-XII are grossly intact No motor deficit. No sensory deficit. Reflexes normal. Course Reevaluation(s) Reevaluation #1: Generalized weakness and malaise, decreased ability of walking with a walker due to increased pain in both knees, positive for COVID, will keep in the ED for physician observation and rehab placement. Time: 00:10 Medications Administered Generic Name Dose Route Start Last Admin Trade Name Erikq PRN Reason Stop Dose Admin Amlodipine Besylate 10 mg 08/17/23 20:30 08/17/23 20:55 Amlodipine Besylate 10 Mg Tablet PO 10 mg DAILY [facility] Administration Protocol Brimonidine Tartrate 1 drop 08/17/23 21:00 08/17/23 21:00 Brimonidine Tartrate 0.2% Oph 5 Ml Bottle EYE-BOTH Not Given TID TIARA Gabapentin 100 mg 08/17/23 21:00 08/17/23 20:56 Gabapentin 100 Mg Capsule PO 100 mg BID TIARA Administration Hydrochlorothiazide 25 mg 08/17/23 20:30 08/17/23 20:55 Hydrochlorothiazide 25 Mg Tablet PO 25 mg DAILY TIARA Administration Protocol Multivitamins/Vitamin C 1 tab 08/17/23 20:30 08/17/23 20:55 Multivitamin Tablet PO 1 tab DAILY TIARA Administration Omeprazole 20 mg 08/17/23 20:30 08/17/23 20:55 Omeprazole 20 Mg Capsule.Dr PO 20 mg DAILY TIARA Administration Vitamin D 25 mcg 08/17/23 20:30 08/17/23 20:56 Cholecalciferol (Vitamin D3) 25 Mcg Tablet PO 25 mcg DAILY TIARA Administration Discontinued Medications Generic Name Dose Route Start Last Admin Trade Name Vadim PRN Reason Stop Dose Admin Acetaminophen 975 mg 08/17/23 19:55 08/17/23 20:01 Acetaminophen 325 Mg Tablet PO 08/17/23 19:56 975 mg ONCE ONE Administration Acetaminophen 650 mg 08/18/23 00:01 08/18/23 00:50 Acetaminophen 325 Mg Tablet PO 08/18/23 00:02 650 mg ONCE ONE Administration Sodium Chloride 1,000 mls @ 999 mls/hr 08/17/23 18:08 08/17/23 20:14 Ns IV 08/17/23 19:08 Infused .Q1H1M ONE Infusion Medical Decision Making Differential Diagnosis Differential Diagnoses: The differential diagnosis associated with the presentation includes (Electrolyte abnormality, severe anemia, knee osteoarthritis, upper respiratory viral infection) Admission/Observation Consideration of admission/observation: Escalation of care including admission/observation considered Lab Data MDM Lab Attestation statement: I reviewed the patient's lab results. 08/17/23 18:23 08/17/23 18:23 Labs: Lab Results 08/17/23 08/17/23 Range/Units 18:22 18:23 WBC 11.9 H (4.8-10.8) X10*3/uL RBC 4.57 (4.20-5.50) X10*6/uL Hgb 10.4 L D (12.0-16.0) g/dl Hct 35.1 L D (37.0-47.0) % MCV 76.8 L (80.0-98.0) fL MCH 22.8 L (27.0-33.0) pg MCHC 29.6 L (31.0-35.0) g/dl RDW 18.4 H (11.0-16.0) % Plt Count 246 (160-400) X10*3/uL MPV 10.3 (9.4-12.3) fL Immature Gran % (Auto) 0.4 (0.0-0.4) % Neut % (Auto) 86.4 H (45-73) % Lymph % (Auto) 5.4 L (20-40) % [place] % (Auto) 6.7 (2-11) % Eos % (Auto) 0.8 (0-4) % Baso % (Auto) 0.3 (0-2) % Lymph # (Auto) 0.6 L (1.2-4.9) X10*3/uL [place] # (Auto) 0.8 (0.1-1.2) X10*3/uL Eos # (Auto) 0.1 (0.0-0.4) X10*3/uL Baso # (Auto) 0.0 (0.0-0.2) X10*3/uL Abs Immat Gran (auto) 0.05 H (0.00-0.03) X10*3/uL Absolute Neuts (auto) 10.3 H (2.0-8.3) x10*3/uL Absolute Nucleated RBC 0.000 (0.0-0.012) X10*3/uL Nucleated RBC % (auto) 0.0 (0.0-0.2) /100WBC Sodium 137 (135-145) mmol/L Potassium 3.7 (3.3-5.1) mmol/L Chloride 103 (96-108) mmol/L Carbon Dioxide 25 (22-29) mmol/L Anion Gap 13 (12-20) BUN 16 (9-16) mg/dL Creatinine 1.09 (0.5-1.4) mg/dL Estim Creat Clear Calc 38.6 Estimated GFR 47 Random Glucose 130 H (60-115) mg/dL Lactic Acid 1.2 (0.5-2.0) mmol/L Calcium 10.1 (8.4-10.2) mg/dL Total Bilirubin 0.5 (0.0-1.0) mg/dL Direct Bilirubin 0.2 (0.0-0.5) mg/dL AST 40 H (5-31) U/L ALT 14 (0-31) U/L Alkaline Phosphatase 80 (39-117) U/L Troponin I High Sens 25.3 H (<3.5-17.0) ng/L B-Natriuretic Peptide 164 H (<100) pg/mL Total Protein 7.3 (6.5-8.0) g/dL Albumin 3.9 (3.5-5.0) g/dL Lipase 16 (8-78) U/L Influenza Type A (PCR) NEGATIVE (Negative) Influenza Type B (PCR) NEGATIVE (Negative) RSV RNA Qual (PCR) NEGATIVE (Negative) SARS-CoV-2 RNA (RT-PCR) POSITIVE A (Negative) Independent Interpretation I performed an independent interpretation of an: Plain X-Ray (Bilateral knee x-ray: 1. No acute fractures or subluxation. 2. Mild to moderate degenerative osteoarthritis. LEFT KNEE: Intact total left knee arthroplasty. No evidence of hardware failure. Decreased number of calcific/ossific densities in the anterior compartment of the knee. ) Radiology Impression Discussion of test interpretation with radiology: I have reviewed the radiologist's reading. Discharge Plan Discharge Clinical Impression: COVID-19 virus infection, Adult failure to thrive Patient Disposition: Still a Patient Prescriptions: No Action (DME) Raised Toliet Seat with handels See Rx Instructions .ROUTE .MEDSUPPLY Qty: 1 0RF Rx Instructions: As directed Osteoarthritis (DME) blood pressure monitor [Blood Pressure Kit] Kit See Rx Instructions .Route Qty: 1 0RF Rx Instructions: As directed (DME) ROLLATOR See Rx Instructions .Route .MEDSUPPLY Qty: 1 0RF Rx Instructions: As directed zolpidem 10 mg tablet 10 mg PO BEDTIME PRN (Reason: insomnia) 30 Days Qty: 30 0RF omeprazole 20 mg capsule,delayed release(DR/EC) 20 mg PO DAILY Qty: 90 3RF (DME) Orthpedic Shoes See Rx Instructions .Route .MEDSUPPLY Qty: 1 0RF Rx Instructions: As directed rosuvastatin 20 mg tablet 20 mg PO DAILY 90 Days Qty: 90 1RF amlodipine 10 mg tablet 10 mg PO DAILY Qty: 90 0RF Rx Instructions: Must make cardiology appt hydrochlorothiazide 25 mg tablet 25 mg PO DAILY Qty: 90 1RF tizanidine 2 mg tablet 2 mg PO BID PRN (Reason: muscle spasms/leg cramps) 30 Days Qty: 60 2RF gabapentin 100 mg capsule 100 mg PO BID 30 Days Qty: 60 2RF fesoterodine [Toviaz] 4 mg tablet extended release 24 hr 4 mg PO DAILY 30 Days Qty: 30 3RF diclofenac sodium 1 % gel 4 g topical QID PRN (Reason: for pain) Qty: 100 3RF cholecalciferol (vitamin D3) [Vitamin D3] 25 mcg (1,000 unit) Capsule 25 mcg PO DAILY multivitamin with iron Tablet 1 tab PO DAILY docusate sodium 100 mg Capsule 100 mg PO BID PRN (Reason: constipation) 14 Days Qty: 30 0RF (DME) RECLINER LIFT CHAIR RECLINER LIFT CHAIR See Rx Instructions .Route .MEDSUPPLY Qty: 1 0RF Rx Instructions: use as directed; Mucinex Cough-Chest Congest HB 10-200 mg capsule 1 tab-cap PO Q8H PRN (Reason: Cough) acetaminophen 325 mg tablet 650 mg PO Q6H PRN (Reason: increased pain) 30 Days Qty: 240 3RF Rx Instructions: Take NO MORE than 2000 mg of Acetaminophen DAILY celecoxib 200 mg capsule 200 mg PO BID PRN (Reason: pain) brimonidine 0.2 % drops 1 drp ophthalmic (eye) TID
[2023-08-17] MEDS: 0.9 % Sodium Chloride 1,000 ML 999 ML IV (18:24)
--- NOTE | 2023-08-17 18:27 | PC.NURSE ---
pt aox4. comes to ED with general weakness for about one day after not being able to lift themselves out of their chair. typically, pt can ambulate with a walker and perform ADLs. Pt has a wet sounding cough which she reports is fairly constant - she calls it a smokers cough . Current smoker During triage assessment pt temp was noted to be 102.8 orally, and the same rectally. Pt is also tachycardic in 110s. MD notified. Labs drawn, fluids started, EKG done. Pt reports that she urinates frequently at baseline. Purewik placed. Pt 02 sat in 92-93 on RA. Denies COPD hx. Pt is working to breath, rate about 22, lung sounds clear. 2L O2 applied with O2 brought up to 96%.
[2023-08-17 18:28] LABS: MANUAL DIFF FLAG NO
[2023-08-17 18:30] LABS: Basophils Percent Auto 0.3 % (0-2); Eosinophils Absolute Auto 0.1 X10*3/uL (0.0-0.4); Eosinophils Percent Auto 0.8 % (0-4); Hematocrit 35.1 % (37.0-47.0); Hemoglobin 10.4 g/dl (12.0-16.0); Imm Gran Abs Auto 0.05 X10*3/uL (0.00-0.03); Imm Gran Pct Auto 0.4 % (0.0-0.4); Lymphocytes Absolute Auto 0.6 X10*3/uL (1.2-4.9); Lymphocytes Percent Auto 5.4 % (20-40); Mean Corpuscular HGB Conc 29.6 g/dl (31.0-35.0); Mean Corpuscular Hemoglobin 22.8 pg (27.0-33.0); Mean Corpuscular Volume 76.8 fL (80.0-98.0); Mean Platelet Volume 10.3 fL (9.4-12.3); Monocytes Absolute Auto 0.8 X10*3/uL (0.1-1.2); Monocytes Percent Auto 6.7 % (2-11); Neutrophils Absolute Auto 10.3 x10*3/uL (2.0-8.3); Neutrophils Percent Auto 86.4 % (45-73); Platelet Count 246 X10*3/uL (160-400); Red Blood Count 4.57 X10*6/uL (4.20-5.50); Red Cell Distribution Width 18.4 % (11.0-16.0); White Blood Count 11.9 X10*3/uL (4.8-10.8)
[2023-08-17 18:41] LABS: Lactic Acid 1.2 mmol/L (0.5-2.0)
[2023-08-17 18:45] LABS: Alanine Aminotransferase 14 U/L (0-31); Albumin Level 3.9 g/dL (3.5-5.0); Alkaline Phosphatase 80 U/L (39-117); Anion Gap 13 (12-20); Aspartate Amino Transferase 40 U/L (5-31); Bilirubin Direct 0.2 mg/dL (0.0-0.5); Bilirubin Total 0.5 mg/dL (0.0-1.0); Blood Urea Nitrogen 16 mg/dL (9-16); Calcium 10.1 mg/dL (8.4-10.2); Carbon Dioxide 25 mmol/L (22-29); Chloride 103 mmol/L (96-108); Creatinine Clr Calc Pharmacy 38.6; Estimated Glomerular Filt Rate 47; Glucose Random 130 mg/dL (60-115); Lipase 16 U/L (8-78); Potassium 3.7 mmol/L (3.3-5.1); Sodium 137 mmol/L (135-145); Total Protein 7.3 g/dL (6.5-8.0)
[2023-08-17 18:49] LABS: B Type Natriuretic Peptide 164 pg/mL (<100)
[2023-08-17 18:52] LABS: Troponin-I High Sensitivity 25.3 ng/L (<3.5-17.0)
[2023-08-17 19:08] LABS: Influenza A PCR NEGATIVE (Negative); Influenza B PCR NEGATIVE (Negative); Resp Syncy Virus RNA Qual PCR NEGATIVE (Negative); SARS COV2 PCR INHOUSE POSITIVE (Negative)
[2023-08-17] MEDS: Acetaminophen 325 MG TABLET 975 MG PO (20:01)
[2023-08-17] MEDS: Omeprazole 20 MG CAPSULE.DR PO (20:55)
[2023-08-17] MEDS: hydroCHLOROthiazide 25 MG TABLET PO (20:55)
[2023-08-17] MEDS: Multivitamin TABLET 1 TAB PO (20:55)
[2023-08-17] MEDS: amLODIPine Besylate 10 MG TABLET PO (20:55)
[2023-08-17] MEDS: Cholecalciferol (Vitamin D3) 25 MCG TABLET PO (20:56)
[2023-08-17] MEDS: Gabapentin 100 MG CAPSULE PO (20:56)
--- NOTE | 2023-08-17 21:00 | PC.NURSE ---
Repositioned pt, medicated with night time medications, pt has no complaints at this time.
[2023-08-17 21:22] VITALS: TEMP 37.8
[2023-08-18] MEDS: Acetaminophen 325 MG TABLET 650 MG PO (00:50)
[2023-08-18 00:51] VITALS: BP 175/69; PULSE 108; RESP 24; TEMP 36.9; O2SAT 90
[2023-08-18 02:15] LABS: Troponin-I High Sensitivity 49.2 ng/L (<3.5-17.0)
[2023-08-18 07:49] VITALS: BP 141/57; PULSE 102; RESP 18; TEMP -12.7; TEMP 9.1; O2SAT 98
--- NOTE | 2023-08-18 08:27 | MHC.CM.PN ---
Addendum entered by Maryanne Machado 08/18/23 14:46: HCP/DAUGHTER EMILI RETURNED THIS CM CALL AND WAS UPDATED ON STATUS. PT WILL HAVE A P.T. EVAL TO DETERMINE NEEDS. Original Note: CM CONSULT RECEIVED FROM ED PROVIDER. CM SPOKE WITH DAUGHTER DAVID VIA TELEPHONE. PT LIVES WITH DAUGHTER. PT USES A WALKER FOR MOBILITY AT BASELINE. PT HAS MODIFIED BATHROOM, LIFE ALERT, LIFT CHAIR AND HAS AN ELECTRIC BED. PT RECEIVES MOW WELL. + HCP ON FILE PCP DR. LAWTON AT [facility] [place]. DAUGHTER AND PATIENT AGREEABLE TO SNF REFERRALS . DAUGHTER AWARE OF COVID + STATUS A POSSIBLE BARRIER. CM WILL CONTINUE TO FOLLOW FOR A DC PLAN/NEEDS.
[2023-08-18] MEDS: Omeprazole 20 MG CAPSULE.DR PO (08:37)
[2023-08-18] MEDS: Gabapentin 100 MG CAPSULE PO ×2 (08:37→20:42)
[2023-08-18] MEDS: amLODIPine Besylate 10 MG TABLET PO (08:37)
[2023-08-18] MEDS: Cholecalciferol (Vitamin D3) 25 MCG TABLET PO (08:37)
[2023-08-18] MEDS: Multivitamin TABLET 1 TAB PO (08:37)
[2023-08-18] MEDS: hydroCHLOROthiazide 25 MG TABLET PO (08:37)
--- NOTE | 2023-08-18 17:45 | PC.NURSE ---
pt came from ed on 4L NC. covid + room. no resp distress. talking well
--- NOTE | 2023-08-18 17:59 | PC.NURSE ---
med giulia'd eye drops from pharm
[2023-08-18 18:14] VITALS: BP 147/61; PULSE 93; RESP 18; TEMP 37.1; O2SAT 96
--- NOTE | 2023-08-18 19:33 | PC.NURSE ---
This RN took over pt assignment @ 1900. Pt ca&ox3, no signs of distress. Pt sitting up in bed watching tv. Pt requested and given tissue Pt given dinner tray just received by cafeteria. Plan of care ongoing.
[2023-08-18] MEDS: Brimonidine Tartrate 0.2% Oph 5 ML BOTTLE 1 DROP EYE-BOTH (20:42)
--- NOTE | 2023-08-18 20:46 | PC.NURSE ---
Pt assisted to bedside commode. Pt assisted back into bed. Dinner tray removed per pts request. Plan of care ongoing.
[2023-08-18 22:00] VITALS: BP 156/62; PULSE 100; RESP 18; TEMP 36.6; O2SAT 95
[2023-08-18] MEDS: TiZANidine HCL 4 MG TABLET 2 MG PO (22:24)
--- NOTE | 2023-08-18 22:30 | PC.NURSE ---
Pt requested and given meds for leg cramps. Plan of care ongoing.
[2023-08-19 04:42] VITALS: BP 146/62; PULSE 98; RESP 16; TEMP 36.9; O2SAT 97
--- NOTE | 2023-08-19 04:42 | MHC.EDTECH ---
Patient awake ,rang to use bathroom ,void back in bed ,vitals taken .
[2023-08-19] MEDS: amLODIPine Besylate 10 MG TABLET PO (08:24)
[2023-08-19] MEDS: Brimonidine Tartrate 0.2% Oph 5 ML BOTTLE 1 DROP EYE-BOTH ×3 (08:24→21:04)
[2023-08-19] MEDS: Cholecalciferol (Vitamin D3) 25 MCG TABLET PO (08:24)
[2023-08-19 08:25] VITALS: BP 124/62; PULSE 98; O2SAT 94
[2023-08-19] MEDS: Gabapentin 100 MG CAPSULE PO ×2 (08:25→21:02)
[2023-08-19] MEDS: Multivitamin TABLET 1 TAB PO (08:25)
[2023-08-19] MEDS: hydroCHLOROthiazide 25 MG TABLET PO (08:25)
[2023-08-19] MEDS: Omeprazole 20 MG CAPSULE.DR PO (08:25)
--- NOTE | 2023-08-19 11:08 | PC.NURSE ---
Addendum entered by Marisela Breen RN 08/19/23 15:52: pt to be admitted to inpatient unit, MD to bedside. Pt updated on plan and agreeable. Safety precautions maintained. Original Note: report recieved from overnight RN, interactive media marketing specialist per OCT, pills whole with water. pt assisted to BSC with 1 assist. pt offering no complaints. dry, intermittent cough noted, respirations even and unlabored. pt found with nasal cannula under chin, sats checked and in mid 80s on room air, nasal cannula replaced, sats up to 94%. education given about importance of oxygen at this time, pt verbalized understanding. resting quietly, call esquivel within reach, bed alarm on, pt encouraged to call for assistance. airborne precautions in place. safety precautions maintained.
[2023-08-19 12:30] VITALS: BP 124/62; PULSE 98
[2023-08-19] MEDS: Nicotine 14 MG PATCH.TD24 TRANSDERMA (14:15)
[2023-08-19 14:49] LABS: MANUAL DIFF FLAG NO
[2023-08-19 14:51] LABS: Basophils Percent Auto 0.4 % (0-2); Eosinophils Absolute Auto 0.2 X10*3/uL (0.0-0.4); Eosinophils Percent Auto 1.9 % (0-4); Hematocrit 31.7 % (37.0-47.0); Hemoglobin 9.4 g/dl (12.0-16.0); Imm Gran Abs Auto 0.04 X10*3/uL (0.00-0.03); Imm Gran Pct Auto 0.5 % (0.0-0.4); Lymphocytes Absolute Auto 1.5 X10*3/uL (1.2-4.9); Lymphocytes Percent Auto 18.6 % (20-40); Mean Corpuscular HGB Conc 29.7 g/dl (31.0-35.0); Mean Corpuscular Hemoglobin 22.7 pg (27.0-33.0); Mean Corpuscular Volume 76.6 fL (80.0-98.0); Mean Platelet Volume 10.3 fL (9.4-12.3); Monocytes Absolute Auto 0.9 X10*3/uL (0.1-1.2); Monocytes Percent Auto 11.3 % (2-11); Neutrophils Absolute Auto 5.2 x10*3/uL (2.0-8.3); Neutrophils Percent Auto 67.3 % (45-73); Platelet Count 181 X10*3/uL (160-400); Red Blood Count 4.14 X10*6/uL (4.20-5.50); Red Cell Distribution Width 18.6 % (11.0-16.0); White Blood Count 7.8 X10*3/uL (4.8-10.8)
[2023-08-19 15:11] LABS: Troponin-I High Sensitivity 35.3 ng/L (<3.5-17.0)
--- NOTE | 2023-08-19 15:38 | PM.IMHP ---
History of Present Illness Date of Service: 08/19/23 Chief Complaint: Weakness, hypoxia, cough An 87 years old lady with PMH of HTN, OA, FANNIE, HLD who presents to the hospital for malaise and weakness. The patient reports that she started to feel weaker the day prior to presentation with associated no energy, no appetite and cough. No chest pain, palpitations, SOB, nausea, vomiting, diarrhea or urinary symptoms. She complains that her mobility is not the best because of pain in her right knee. she was primarly waiting placement in ED but then became hypoxic to 80s on RA started on O2 supplement. In ED tested positive for Covid. admitted for monitoring and further work up. Review of Systems Review of Systems: No fever, chills but having weakness No chest pain, palpitation shortness of breath but reported coughing No abdominal pain, nausea or vomiting No urinary symptoms No any rash or wounds PMFSH Medical History Overweight (BMI 25.0-29.9) COVID-19 vaccine administered History of COVID-19 Restrictive lung disease Edema Current smoker Iron deficiency anemia Tobacco abuse Carotid bruit Obesity (BMI 30-39.9) Depression Insomnia Allergic rhinitis Elevated TSH GERD without esophagitis Impaired fasting glucose Anemia Knee osteoarthritis Vitamin D deficiency Chronic kidney disease (CKD), stage III (moderate) Pure hypercholesterolemia Benign essential hypertension Coronary artery disease Family History Father Medical history unknown Mother CVD (cardiovascular disease) Surgical History Hx of total knee arthroplasty Hx of colonoscopy Hx of cardiac cath Hx of bilateral cataract extraction History of hysterectomy Social History Household Members: Family Household Members Other:: daughter & grandsons Housing: Condominium Are you a primary special needs child caregiver to a significant other at home: No Do you presently have visiting nurse or other home services: No Alcohol intake: never Comment: aware of trip hazard Patient Tobacco Use Status: Current everyday Tobacco user Tobacco use type: Cigarette Cigarettes Per Day: 10 Years Smoked: 70 Smoked in Last 30 Days: Yes e-Cigarette/Vaping Use: Never Used Second Hand Smoke Exposure: Yes Use of substances other than those prescribed or required for medical reasons: No Advance Directives: No Advance Directives Information Provided: Yes service: No Current occupational status: retired and disabled Cognitive needs: No (cane/walker) Hearing needs: No Vision needs: No Meds Allergies Allergy/AdvReac Type Severity Reaction Status Date / Time atorvastatin AdvReac Intermediate myalgias Verified 04/19/23 11:15 Active Medications: Current Medications Acetaminophen (Acetaminophen 325 Mg Tablet) 650 mg PO Q6H PRN PRN Reason: increased pain Amlodipine Besylate (Amlodipine Besylate 10 Mg Tablet) 10 mg PO DAILY [facility]; Protocol Last Admin: 08/19/23 08:24 Dose: 10 mg Brimonidine Tartrate (Brimonidine Tartrate 0.2% Oph 5 Ml Bottle) 1 drop EYE-BOTH TID [facility] Last Admin: 08/19/23 14:15 Dose: 1 drop Docusate Sodium (Docusate Sodium 100 Mg Capsule) 100 mg PO BID PRN PRN Reason: constipation Gabapentin (Gabapentin 100 Mg Capsule) 100 mg PO BID [facility] Last Admin: 08/19/23 08:25 Dose: 100 mg Hydrochlorothiazide (Hydrochlorothiazide 25 Mg Tablet) 25 mg PO DAILY [facility]; Protocol Last Admin: 08/19/23 08:25 Dose: 25 mg Multivitamins/Vitamin C (Multivitamin Tablet) 1 tab PO DAILY [facility] Last Admin: 08/19/23 08:25 Dose: 1 tab Nicotine (Nicotine 14 Mg Patch.Td24) 14 mg TRANSDERMA DAILY PRN PRN Reason: Nicotine Cravings Last Admin: 08/19/23 14:15 Dose: 14 mg Non-Formulary Medication (Dextromethorphan-Guaifenesin [Mucinex Cough-Chest Congest Hb]) 1 tab-cap PO Q8H PRN PRN Reason: Cough Non-Formulary Medication (Fesoterodine [Toviaz]) 4 mg PO DAILY [facility] Non-Formulary Medication (Rosuvastatin) 20 mg PO DAILY [facility] Omeprazole (Omeprazole 20 Mg Capsule.Dr) 20 mg PO DAILY [facility] Last Admin: 08/19/23 08:25 Dose: 20 mg Tizanidine HCl (Tizanidine Hcl 4 Mg Tablet) 2 mg PO BID PRN PRN Reason: muscle spasms/leg cramps Last Admin: 08/18/23 22:24 Dose: 2 mg Vitamin D (Cholecalciferol (Vitamin D3) 25 Mcg Tablet) 25 mcg PO DAILY [facility] Last Admin: 08/19/23 08:24 Dose: 25 mcg Zolpidem Tartrate (Zolpidem Tartrate 5 Mg Tablet) 10 mg PO BEDTIME PRN PRN Reason: insomnia Home Medications Medication Instructions Recorded Confirmed Last Taken Type cholecalciferol (vitamin D3) 25 25 mcg PO DAILY 07/21/21 08/17/23 03/26/22 History mcg (1,000 unit) capsule (Vitamin D3) multivitamin with iron 1 tab PO DAILY 07/21/21 08/17/23 03/26/22 History brimonidine 0.2 % eye drops 1 drp ophthalmic (eye) TID macular 04/17/23 08/17/23 Unknown History degeneration celecoxib 200 mg capsule 200 mg PO BID PRN pain 04/17/23 08/17/23 Unknown History dextromethorphan-guaifenesin 10 1 tab-cap PO Q8H PRN Cough 04/17/23 08/17/23 Unknown History mg-200 mg capsule (Mucinex Cough-Chest Congestion HBP) Physical Exam Vital Signs and Narrative: Vital Signs: Last Vital Signs Temp 98.4 F 08/19/23 04:42 Pulse 98 08/19/23 12:30 Resp 16 08/19/23 04:42 BP 124/62 08/19/23 12:30 Pulse Ox 97 08/19/23 04:42 O2 Del Method Room Air 08/19/23 04:42 O2 Flow Rate 4 08/18/23 22:00 BMI result Body Mass Index 30.4 Const: Other: Constitutional : Awake, interactive, not in distress Neck : Normal inspection, Supple Cardiovascular : RRR, no JVP, no lower extremity edema Respiratory : fair bilateral air entry, no crackles, scattered wheezes, On O2 supplement 4L Gastrointestinal: soft, lax, Normal bowel sounds, Non tender Skin : Warm, Dry Neurological : Alert & oriented x3, No focal deficit Results Labs 08/19/23 14:43 08/17/23 18:23 Labs: Laboratory Results - last 24 hr 08/19/23 14:43 MCV 76.6 L MCH 22.7 L MCHC 29.7 L RDW 18.6 H Plt Count 181 D MPV 10.3 Immature Gran % (Auto) 0.5 H Neut % (Auto) 67.3 Lymph % (Auto) 18.6 L [place] % (Auto) 11.3 H Eos % (Auto) 1.9 Baso % (Auto) 0.4 Lymph # (Auto) 1.5 [place] # (Auto) 0.9 Eos # (Auto) 0.2 Baso # (Auto) 0.0 Abs Immat Gran (auto) 0.04 H Absolute Neuts (auto) 5.2 Absolute Nucleated RBC 0.000 Nucleated RBC % (auto) 0.0 Assessment and Plan (1) COVID-19 virus infection: Status: Acute (2) Acute respiratory failure with hypoxia: Status: Acute Plan An 87 years old lady with PMH of HTN, OA, FANNIE, HLD who presents to the hospital for malaise and weakness. Acute hypoxia 2/2 Covid 19 infection O2 dropped to 80s on RA Dexamethasone ID to decide on remdisivir or other O2 supplement, wean down as tolerated encourage PO intake HTN continue Amlodipine FANNIE check Iron profile give Iron supplement Osteoarthritis pain management PT eval DVT PPx Lovenox The patient will need likely more than 2 overnight hospital stay for treatment of Hypoxia 2/2 Covid Quality Stroke Does the patient have a stroke diagnosis?: No VTE Prior VTE?: No VTE Risk Level:: Medical - moderate - high VTE Device Contraindication: Treatment Not Indicated VTE Drug Contraindication: N/A - Med Ordered
[2023-08-19 16:10] VITALS: BP 137/56; PULSE 89; RESP 18; TEMP 36.1; O2SAT 94
[2023-08-19] MEDS: Enoxaparin Sodium 40 MG/0.4 ML SYRINGE SUBCUT (17:05)
[2023-08-19] MEDS: dexAMETHasone sod phosphate 4 MG/ML VIAL 6 MG IVPUSH (17:05)
[2023-08-19] MEDS: Omeprazole 40 MG CAPSULE.DR PO (17:06)
[2023-08-19] MEDS: 0.9 % Sodium Chloride Flush 3 ML SYRINGE IVFLUSH (17:06)
[2023-08-19] MEDS: Ferrous Sulfate 324 MG TABLET.DR PO (17:06)
[2023-08-19 19:36] VITALS: BP 159/70; PULSE 90; RESP 16; TEMP 36.9; O2SAT 98
--- NOTE | 2023-08-19 19:37 | MHC.EDTECH ---
This tech assumed care of patient at 1900, hourly rounds and vitals completed,patient was a one assist to commode,urinated a moderate amount,jose-care was giving. Patient was giving a cup of ice per request.Call esquivel within reach
--- NOTE | 2023-08-19 21:08 | PC.NURSE ---
This senior grant writer assumed care of this Pt at 1900. Pt A&Ox3, denies any pain. Pt on 5L via NC, SpO2 98%, O2 titrated down to 2L, SpO2 96%. Pt one assist to bedside commode. Pt medicated per OCT. Report given to Jud, Pt will be transported to ED 17 for tele monitor. Pt aware of plan.
[2023-08-20] VITALS (11 sets, daily range): BP systolic 130–167; BP diastolic 58–82; PULSE 86–102; RESP 18–22; TEMP 36.6–37.1; O2SAT 94–98; BMI 30.4
[2023-08-20] MEDS: 0.9 % Sodium Chloride Flush 3 ML SYRINGE IVFLUSH ×3 (00:55→16:40)
--- NOTE | 2023-08-20 03:25 | PC.NURSE ---
Pt incontinent of urine, assisted to bedside commode. Linen changed.
[2023-08-20] MEDS: Omeprazole 40 MG CAPSULE.DR PO ×2 (06:29→16:40)
[2023-08-20 07:15] LABS: Anion Gap 14 (12-20); Blood Urea Nitrogen 25 mg/dL (9-16); Calcium 9.4 mg/dL (8.4-10.2); Carbon Dioxide 27 mmol/L (22-29); Chloride 102 mmol/L (96-108); Creatinine Clr Calc Pharmacy 34.8; Estimated Glomerular Filt Rate 42; Glucose Random 188 mg/dL (60-115); Iron 19 mcg/dL (30-160); Percent Iron Saturation 7 % (15-50); Potassium 3.7 mmol/L (3.3-5.1); Sodium 139 mmol/L (135-145); Total Iron Binding Capacity 284 mcg/dL (228-428); Unsaturated Iron Binding 265 ug/dL
--- NOTE | 2023-08-20 08:36 | HO.PM.IMPN ---
Subjective Subjective Date of Service: 08/20/23 Interval History: Seen and evaluated this morning Feels relatively better Still on O2 supplement No other overnight events Review of Systems Review of Systems: Yes all other systems are reviewed and are negative Physical Exam Vital Signs: Vital Signs: Last Vital Signs Temp 97.8 F 08/20/23 05:12 Pulse 93 08/20/23 05:12 Resp 18 08/20/23 05:12 BP 166/68 H 08/20/23 05:12 Pulse Ox 96 08/20/23 06:00 O2 Del Method Nasal Cannula 08/20/23 06:00 O2 Flow Rate 2 08/20/23 06:00 BMI result Body Mass Index 30.4 Const: Other: Constitutional : Awake, interactive, not in distress Neck : Normal inspection, Supple Cardiovascular : RRR, no JVP, no lower extremity edema Respiratory : fair bilateral air entry, no crackles, scattered wheezes, On O2 supplement 2L Gastrointestinal: soft, lax, Normal bowel sounds, Non tender Skin : Warm, Dry Neurological : Alert & oriented x3, No focal deficit Objective Data Active Medications Acetaminophen (Acetaminophen 325 Mg Tablet) 650 mg PO Q6H PRN PRN Reason: increased pain Amlodipine Besylate (Amlodipine Besylate 10 Mg Tablet) 10 mg PO DAILY [facility]; Protocol Last Admin: 08/19/23 08:24 Dose: 10 mg Documented By: LISSET Brimonidine Tartrate (Brimonidine Tartrate 0.2% Oph 5 Ml Bottle) 1 drop EYE-BOTH TID [facility] Last Admin: 08/19/23 21:04 Dose: 1 drop Documented By: BILLIE Dexamethasone Sodium Phosphate (Dexamethasone Sod Phosphate 4 Mg/Ml Vial) 6 mg IVPUSH DAILY [facility] Docusate Sodium (Docusate Sodium 100 Mg Capsule) 100 mg PO BID PRN PRN Reason: constipation Enoxaparin Sodium (Enoxaparin Sodium 40 Mg/0.4 Ml Syringe) 40 mg SUBCUT Q24H [facility] Last Admin: 08/19/23 17:05 Dose: 40 mg Documented By: LISSET Ferrous Sulfate (Ferrous Sulfate 324 Mg Tablet.) 324 mg PO BIDWM [facility] Last Admin: 08/19/23 17:06 Dose: 324 mg Documented By: LISSET Gabapentin (Gabapentin 100 Mg Capsule) 100 mg PO BID [facility] Last Admin: 08/19/23 21:02 Dose: 100 mg Documented By: BILLIE Hydrochlorothiazide (Hydrochlorothiazide 25 Mg Tablet) 25 mg PO DAILY [facility]; Protocol Last Admin: 08/19/23 08:25 Dose: 25 mg Documented By: LISSET Multivitamins/Vitamin C (Multivitamin Tablet) 1 tab PO DAILY [facility] Last Admin: 08/19/23 08:25 Dose: 1 tab Documented By: LISSET Nicotine (Nicotine 14 Mg Patch.Td24) 14 mg TRANSDERMA DAILY PRN PRN Reason: Nicotine Cravings Last Admin: 08/19/23 14:15 Dose: 14 mg Documented By: LISSET Non-Formulary Medication (Dextromethorphan-Guaifenesin [Mucinex Cough-Chest Congest Hb]) 1 tab-cap PO Q8H PRN PRN Reason: Cough Non-Formulary Medication (Fesoterodine [Toviaz]) 4 mg PO DAILY [facility] Non-Formulary Medication (Rosuvastatin) 20 mg PO DAILY [facility] Omeprazole (Omeprazole 40 Mg Capsule.Dr) 40 mg PO BID@0630,1630 [facility] Last Admin: 08/20/23 06:29 Dose: 40 mg Documented By: BILLIE Ondansetron HCl (Ondansetron Hcl 4 Mg/2 Ml Vial) 4 mg IVPUSH Q8H PRN PRN Reason: Nausea and Vomiting Sodium Chloride (0.9 % Sodium Chloride Flush 3 Ml Syringe) 3 ml IVFLUSH QSHIFT [facility] Last Admin: 08/20/23 00:55 Dose: 3 ml Documented By: BILLIE Tizanidine HCl (Tizanidine Hcl 4 Mg Tablet) 2 mg PO BID PRN PRN Reason: muscle spasms/leg cramps Last Admin: 08/18/23 22:24 Dose: 2 mg Documented By: MADDIE Vitamin D (Cholecalciferol (Vitamin D3) 25 Mcg Tablet) 25 mcg PO DAILY [facility] Last Admin: 08/19/23 08:24 Dose: 25 mcg Documented By: LISSET Zolpidem Tartrate (Zolpidem Tartrate 5 Mg Tablet) 10 mg PO BEDTIME PRN PRN Reason: insomnia Labs 08/19/23 14:43 08/20/23 06:20 Labs: Laboratory Results - last 24 hr 08/19/23 08/20/23 14:43 06:20 MCV 76.6 L MCH 22.7 L MCHC 29.7 L RDW 18.6 H Plt Count 181 D MPV 10.3 Immature Gran % (Auto) 0.5 H Neut % (Auto) 67.3 Lymph % (Auto) 18.6 L [place] % (Auto) 11.3 H Eos % (Auto) 1.9 Baso % (Auto) 0.4 Lymph # (Auto) 1.5 [place] # (Auto) 0.9 Eos # (Auto) 0.2 Baso # (Auto) 0.0 Abs Immat Gran (auto) 0.04 H Absolute Neuts (auto) 5.2 Absolute Nucleated RBC 0.000 Nucleated RBC % (auto) 0.0 Anion Gap 14 Estim Creat Clear Calc 34.8 Estimated GFR 42 Random Glucose 188 H Calcium 9.4 D Iron 19 L TIBC 284 % Saturation 7 L Unsat Iron Binding 265 Microbiology Microbiology Results: Microbiology 08/17/23 18:33 Blood Culture - Preliminary Blood - Venous No growth after 48 hours. 08/17/23 18:23 Blood Culture - Preliminary Blood - Venous No growth after 48 hours. Assessment and Plan (1) Acute respiratory failure with hypoxia: Status: Acute (2) COVID-19 virus infection: Status: Acute Plan An 87 years old lady with PMH of HTN, OA, FANNIE, HLD who presents to the hospital for malaise and weakness. Acute hypoxia 2/2 Covid 19 infection O2 dropped to 80s on RA Dexamethasone Duonebs ATC ID consult to decide on remdisivir or other O2 supplement, wean down as tolerated encourage PO intake PT eval HTN continue Amlodipine FANNIE Low Iron level give Iron supplement Osteoarthritis pain management PT eval DVT PPx Lovenox The patient will need overnight hospital stay for treatment of Hypoxia 2/2 Covid Quality Stroke Does the patient have a stroke diagnosis?: No VTE Prior VTE?: No VTE Risk Level:: Medical - moderate - high VTE Device Contraindication: Treatment Not Indicated VTE Drug Contraindication: N/A - Med Ordered
[2023-08-20] MEDS: Albuterol/Iprat 2.5/0.5MG 3 ML AMPUL.NEB INHALE ×3 (09:24→19:34)
[2023-08-20] MEDS: dexAMETHasone sod phosphate 4 MG/ML VIAL 6 MG IVPUSH (09:44)
[2023-08-20] MEDS: Multivitamin TABLET 1 TAB PO (09:46)
[2023-08-20] MEDS: amLODIPine Besylate 10 MG TABLET PO (09:46)
[2023-08-20] MEDS: Cholecalciferol (Vitamin D3) 25 MCG TABLET PO (09:46)
[2023-08-20] MEDS: Ferrous Sulfate 324 MG TABLET.DR PO ×2 (09:46→16:40)
[2023-08-20] MEDS: hydroCHLOROthiazide 25 MG TABLET PO (09:47)
[2023-08-20] MEDS: Gabapentin 100 MG CAPSULE PO ×2 (09:47→20:36)
--- NOTE | 2023-08-20 16:04 | MHC.EDTECH ---
Patient changed and repositioned
[2023-08-20] MEDS: Enoxaparin Sodium 40 MG/0.4 ML SYRINGE SUBCUT (16:40)
--- NOTE | 2023-08-20 16:43 | PC.NURSE ---
patient continues to rest quietly in room with no obvious signs/symptoms of distress. call esquivel within reach
[2023-08-20] MEDS: Brimonidine Tartrate 0.2% Oph 5 ML BOTTLE 1 DROP EYE-BOTH (20:37)
[2023-08-20] MEDS: Acetaminophen 325 MG TABLET 650 MG PO (22:39)
[2023-08-20] MEDS: Remdesivir 200 MG in 0.9 % Sodium Chloride 210 ML 105 MG IV (22:39)
--- NOTE | 2023-08-20 22:58 | P.CNID_ITS ---
History of Present Illness Data of Consult Service Date: 08/20/23 Requesting physician: Sue Manriquez Primary Care Provider: Irving Meneses MD HPI Reason for consult: weakness She has weakness and malaise for last 3 days. She has COVID positivity and is 93% on 2 liters. Review of Systems 2 Review of Systems: Yes all other systems are reviewed and are negative [facility] Past Medical History Medical History Overweight (BMI 25.0-29.9) COVID-19 vaccine administered History of COVID-19 Restrictive lung disease Edema Current smoker Iron deficiency anemia Tobacco abuse Carotid bruit Obesity (BMI 30-39.9) Depression Insomnia Allergic rhinitis Elevated TSH GERD without esophagitis Impaired fasting glucose Anemia Knee osteoarthritis Vitamin D deficiency Chronic kidney disease (CKD), stage III (moderate) Pure hypercholesterolemia Benign essential hypertension Coronary artery disease Family History Family History Father Medical history unknown Mother CVD (cardiovascular disease) Family history: reviewed and not pertinent Surgical History Surgical History Hx of total knee arthroplasty Hx of colonoscopy Hx of cardiac cath Hx of bilateral cataract extraction History of hysterectomy Social History Social History Household Members: Family Household Members Other:: daughter and grandson live with patient. Housing: Apartment Are you a primary skin care specialist to a significant other at home: No Do you presently have visiting nurse or other home services: Yes ([facility]) Alcohol intake: never Comment: aware of trip hazard Patient Tobacco Use Status: Current everyday Tobacco user Tobacco use type: Cigarette Cigarettes Per Day: 10 Years Smoked: 70 e-Cigarette/Vaping Use: Never Used Second Hand Smoke Exposure: Yes service: No Current occupational status: retired and disabled Cognitive needs: No (cane/walker) Hearing needs: No Vision needs: No Meds Allergies Allergy/AdvReac Type Severity Reaction Status Date / Time atorvastatin AdvReac Intermediate myalgias Verified 04/19/23 11:15 Active Medications: Current Medications Acetaminophen (Acetaminophen 325 Mg Tablet) 650 mg PO Q6H PRN PRN Reason: increased pain Last Admin: 08/20/23 22:39 Dose: 650 mg Albuterol/Ipratropium (Albuterol/Iprat 2.5/0.5mg 3 Ml Ampul.Neb) 3 ml INHALE RQ6H WHILE AWAKE [facility] Last Admin: 08/20/23 19:34 Dose: 3 ml Amlodipine Besylate (Amlodipine Besylate 10 Mg Tablet) 10 mg PO DAILY [facility]; Protocol Last Admin: 08/20/23 09:46 Dose: 10 mg Brimonidine Tartrate (Brimonidine Tartrate 0.2% Oph 5 Ml Bottle) 1 drop EYE- BOTH TID [facility] Last Admin: 08/20/23 20:37 Dose: 1 drop Dexamethasone Sodium Phosphate (Dexamethasone Sod Phosphate 4 Mg/Ml Vial) 6 mg IVPUSH DAILY [facility] Last Admin: 08/20/23 09:44 Dose: 6 mg Docusate Sodium (Docusate Sodium 100 Mg Capsule) 100 mg PO BID PRN PRN Reason: constipation Enoxaparin Sodium (Enoxaparin Sodium 40 Mg/0.4 Ml Syringe) 40 mg SUBCUT Q24H [facility] Last Admin: 08/20/23 16:40 Dose: 40 mg Ferrous Sulfate (Ferrous Sulfate 324 Mg Tablet.Dr) 324 mg PO BIDWM [facility] Last Admin: 08/20/23 16:40 Dose: 324 mg Gabapentin (Gabapentin 100 Mg Capsule) 100 mg PO BID [facility] Last Admin: 08/20/23 20:36 Dose: 100 mg Hydrochlorothiazide (Hydrochlorothiazide 25 Mg Tablet) 25 mg PO DAILY [facility]; Protocol Last Admin: 08/20/23 09:47 Dose: 25 mg Remdesivir 100 mg/ Sodium (Chloride) 230 mls @ 115 mls/hr IV Q24H [facility] Stop: 08/24/23 19:59 Multivitamins/Vitamin C (Multivitamin Tablet) 1 tab PO DAILY [facility] Last Admin: 08/20/23 09:46 Dose: 1 tab Nicotine (Nicotine 14 Mg Patch.Td24) 14 mg TRANSDERMA DAILY PRN PRN Reason: Nicotine Cravings Last Admin: 08/19/23 14:15 Dose: 14 mg Non-Formulary Medication (Dextromethorphan-Guaifenesin [Mucinex Cough-Chest Congest Hb]) 1 tab-cap PO Q8H PRN PRN Reason: Cough Non-Formulary Medication (Fesoterodine [Toviaz]) 4 mg PO DAILY [facility] Non-Formulary Medication (Rosuvastatin) 20 mg PO DAILY [facility] Omeprazole (Omeprazole 40 Mg Capsule.Dr) 40 mg PO BID@0630,1630 [facility] Last Admin: 08/20/23 16:40 Dose: 40 mg Ondansetron HCl (Ondansetron Hcl 4 Mg/2 Ml Vial) 4 mg IVPUSH Q8H PRN PRN Reason: Nausea and Vomiting Sodium Chloride (0.9 % Sodium Chloride Flush 3 Ml Syringe) 3 ml IVFLUSH QSHIFT [facility] Last Admin: 08/20/23 16:40 Dose: 3 ml Tizanidine HCl (Tizanidine Hcl 4 Mg Tablet) 2 mg PO BID PRN PRN Reason: muscle spasms/leg cramps Last Admin: 08/18/23 22:24 Dose: 2 mg Vitamin D (Cholecalciferol (Vitamin D3) 25 Mcg Tablet) 25 mcg PO DAILY [facility] Last Admin: 08/20/23 09:46 Dose: 25 mcg Zolpidem Tartrate (Zolpidem Tartrate 5 Mg Tablet) 10 mg PO BEDTIME PRN PRN Reason: insomnia Home Medications Medication Instructions Recorded Confirmed Last Taken Type cholecalciferol (vitamin D3) 25 25 mcg PO DAILY 07/21/21 08/17/23 03/26/22 History mcg (1,000 unit) capsule (Vitamin D3) multivitamin with iron 1 tab PO DAILY 07/21/21 08/17/23 03/26/22 History brimonidine 0.2 % eye drops 1 drp ophthalmic (eye) TID macular 04/17/23 08/17/23 Unknown History degeneration celecoxib 200 mg capsule 200 mg PO BID PRN pain 04/17/23 08/17/23 Unknown History dextromethorphan-guaifenesin 10 1 tab-cap PO Q8H PRN Cough 04/17/23 08/17/23 Unknown History mg-200 mg capsule (Mucinex Cough-Chest Congestion HBP) Physical Exam 2 Vital Signs: Vital Signs: Last Vital Signs Temp 98.0 F 08/20/23 20:00 Pulse 93 08/20/23 20:00 Resp 18 08/20/23 20:00 BP 130/69 08/20/23 20:00 Pulse Ox 95 08/20/23 20:00 O2 Del Method Room Air 08/20/23 20:00 O2 Flow Rate 2 08/20/23 16:00 BMI result Body Mass Index 30.4 Const: General: cooperative HEENT: Head: Yes normal to inspection Face and sinus: Yes normal facial exam Mouth: Normal oral and palatal mucosa present Teeth and gingiva: d entition normal Eyes: General: appearance normal, both eyes and all related structures P upils: Equal, round and reactive pupils present Resp: Effort & Inspection: normal respiratory effort Cardio: Rate: regular rate Rhythm: regular rhythm GI: Palpation (GI): Soft to palpation and nontender : General: Yes no CVA tenderness Back/Spine/Pelvis: Back: no CVA tenderness Skin: General skin exam: no rashes or lesions noted Neuro: General: moves all extremities Cranial nerves: Yes Equal, round and reactive pupils present Extrem: General: Yes normal to inspection Psych: Appearance: grossly normal Results Labs 08/19/23 14:43 08/20/23 06:20 Labs: BMP 08/20/23 06:20 Sodium 139 Potassium 3.7 Chloride 102 Carbon Dioxide 27 BUN 25 H Creatinine 1.21 Calcium 9.4 D Microbiology Microbiology Results: Microbiology 08/17/23 18:33 Blood - Venous Blood Culture - Preliminary No growth after 48 hours. 08/17/23 18:23 Blood - Venous Blood Culture - Preliminary No growth after 48 hours. Assessment and Plan (1) Acute respiratory failure with hypoxia: Status: Acute She has recent likely onset COVID. She has some intermittent oxygen need likely and is at risk due to age for severe disease. (2) COVID-19 virus infection: Status: Acute Plan Remdesivir for three days likely. Steroids if hypoxic.
[2023-08-21] VITALS (11 sets, daily range): BP systolic 132–191; BP diastolic 65–77; PULSE 85–100; RESP 17–20; TEMP 36.3–37; O2SAT 92–98
[2023-08-21] MEDS: Omeprazole 40 MG CAPSULE.DR PO ×2 (06:28→15:58)
[2023-08-21 07:48] LABS: Hematocrit 33.3 % (37.0-47.0); Hemoglobin 9.8 g/dl (12.0-16.0); Mean Corpuscular HGB Conc 29.4 g/dl (31.0-35.0); Mean Corpuscular Hemoglobin 22.7 pg (27.0-33.0); Mean Corpuscular Volume 77.3 fL (80.0-98.0); Mean Platelet Volume 11.2 fL (9.4-12.3); Platelet Count 230 X10*3/uL (160-400); Red Blood Count 4.31 X10*6/uL (4.20-5.50); Red Cell Distribution Width 18.2 % (11.0-16.0); White Blood Count 11.9 X10*3/uL (4.8-10.8)
[2023-08-21 07:54] LABS: Anion Gap 13 (12-20); Blood Urea Nitrogen 30 mg/dL (9-16); C Reactive Protein 1.35 mg/dL (< or = 0.50); Calcium 9.7 mg/dL (8.4-10.2); Carbon Dioxide 28 mmol/L (22-29); Chloride 102 mmol/L (96-108); Estimated Glomerular Filt Rate 44; Glucose Random 120 mg/dL (60-115); Lactate Dehydrogenase 177 U/L (122-220); Potassium 3.4 mmol/L (3.3-5.1); Sodium 140 mmol/L (135-145)
[2023-08-21] MEDS: Multivitamin TABLET 1 TAB PO (09:03)
[2023-08-21] MEDS: hydroCHLOROthiazide 25 MG TABLET PO (09:05)
[2023-08-21] MEDS: Cholecalciferol (Vitamin D3) 25 MCG TABLET PO (09:05)
[2023-08-21] MEDS: Ferrous Sulfate 324 MG TABLET.DR PO (09:05)
[2023-08-21] MEDS: Gabapentin 100 MG CAPSULE PO ×2 (09:05→20:30)
[2023-08-21] MEDS: 0.9 % Sodium Chloride Flush 3 ML SYRINGE IVFLUSH ×2 (09:05→16:06)
[2023-08-21] MEDS: amLODIPine Besylate 10 MG TABLET PO (09:05)
[2023-08-21] MEDS: dexAMETHasone sod phosphate 4 MG/ML VIAL 6 MG IVPUSH (09:06)
[2023-08-21] MEDS: Brimonidine Tartrate 0.2% Oph 5 ML BOTTLE 1 DROP EYE-BOTH ×3 (09:07→20:30)
[2023-08-21] MEDS: Albuterol/Iprat 2.5/0.5MG 3 ML AMPUL.NEB INHALE ×3 (09:11→19:51)
--- NOTE | 2023-08-21 10:20 | HO.PM.IMPN ---
Subjective Subjective Date of Service: 08/21/23 Interval History: improved Physical Exam Vital Signs: Vital Signs: Last Vital Signs Temp 98.6 F 08/21/23 07:56 Pulse 100 08/21/23 09:13 Resp 18 08/21/23 09:13 BP 174/75 H 08/21/23 07:56 Pulse Ox 92 08/21/23 07:56 O2 Del Method Nasal Cannula 08/21/23 07:56 O2 Flow Rate 2 08/21/23 07:56 BMI result Body Mass Index 30.4 General: AO X 3, no acute distress Resp: CTA bilateral, no accessory muscles used CVS: S1,S2,RRR GI: soft, non tender, non distended Neuro: motor grossly intact, alert Psych: appropriate affect, appropriate insight Objective Data Active Medications Acetaminophen (Acetaminophen 325 Mg Tablet) 650 mg PO Q6H PRN PRN Reason: increased pain Last Admin: 08/20/23 22:39 Dose: 650 mg Documented By: SHAHIDATRHilaria Albuterol/Ipratropium (Albuterol/Iprat 2.5/0.5mg 3 Ml Ampul.Neb) 3 ml INHALE RQ6H WHILE AWAKE [facility] Last Admin: 08/21/23 09:11 Dose: 3 ml Documented By: DONA Amlodipine Besylate (Amlodipine Besylate 10 Mg Tablet) 10 mg PO DAILY [facility]; Protocol Last Admin: 08/21/23 09:05 Dose: 10 mg Documented By: DEMETRIUS Brimonidine Tartrate (Brimonidine Tartrate 0.2% Oph 5 Ml Bottle) 1 drop EYE-BOTH TID [facility] Last Admin: 08/21/23 09:07 Dose: 1 drop Documented By: DEMETRIUS Dexamethasone Sodium Phosphate (Dexamethasone Sod Phosphate 4 Mg/Ml Vial) 6 mg IVPUSH DAILY [facility] Last Admin: 08/21/23 09:06 Dose: 6 mg Documented By: DEMETRIUS Docusate Sodium (Docusate Sodium 100 Mg Capsule) 100 mg PO BID PRN PRN Reason: constipation Enoxaparin Sodium (Enoxaparin Sodium 40 Mg/0.4 Ml Syringe) 40 mg SUBCUT Q24H [facility] Last Admin: 08/20/23 16:40 Dose: 40 mg Documented By: BEATRIZ Ferrous Sulfate (Ferrous Sulfate 324 Mg Tablet.) 324 mg PO BIDWM [facility] Last Admin: 08/21/23 09:05 Dose: 324 mg Documented By: DEMETRIUS Gabapentin (Gabapentin 100 Mg Capsule) 100 mg PO BID [facility] Last Admin: 08/21/23 09:05 Dose: 100 mg Documented By: DEMETRIUS Hydrochlorothiazide (Hydrochlorothiazide 25 Mg Tablet) 25 mg PO DAILY [facility]; Protocol Last Admin: 08/21/23 09:05 Dose: 25 mg Documented By: DEMETRIUS Remdesivir 100 mg/ Sodium (Chloride) 230 mls @ 115 mls/hr IV Q24H [facility] Stop: 08/24/23 19:59 Multivitamins/Vitamin C (Multivitamin Tablet) 1 tab PO DAILY [facility] Last Admin: 08/21/23 09:03 Dose: 1 tab Documented By: DEMETRIUS Nicotine (Nicotine 14 Mg Patch.Td24) 14 mg TRANSDERMA DAILY PRN PRN Reason: Nicotine Cravings Last Admin: 08/19/23 14:15 Dose: 14 mg Documented By: LISSET Non-Formulary Medication (Dextromethorphan-Guaifenesin [Mucinex Cough-Chest Congest Hb]) 1 tab-cap PO Q8H PRN PRN Reason: Cough Non-Formulary Medication (Fesoterodine [Toviaz]) 4 mg PO DAILY [facility] Non-Formulary Medication (Rosuvastatin) 20 mg PO DAILY [facility] Omeprazole (Omeprazole 40 Mg Capsule.Dr) 40 mg PO BID@0630,1630 [facility] Last Admin: 08/21/23 06:28 Dose: 40 mg Documented By: NICHOLAS Ondansetron HCl (Ondansetron Hcl 4 Mg/2 Ml Vial) 4 mg IVPUSH Q8H PRN PRN Reason: Nausea and Vomiting Sodium Chloride (0.9 % Sodium Chloride Flush 3 Ml Syringe) 3 ml IVFLUSH QSHIFT [facility] Last Admin: 08/21/23 09:05 Dose: 3 ml Documented By: DEMETRIUS Tizanidine HCl (Tizanidine Hcl 4 Mg Tablet) 2 mg PO BID PRN PRN Reason: muscle spasms/leg cramps Last Admin: 08/18/23 22:24 Dose: 2 mg Documented By: MADDIE Vitamin D (Cholecalciferol (Vitamin D3) 25 Mcg Tablet) 25 mcg PO DAILY [facility] Last Admin: 08/21/23 09:05 Dose: 25 mcg Documented By: DEMETRIUS Zolpidem Tartrate (Zolpidem Tartrate 5 Mg Tablet) 10 mg PO BEDTIME PRN PRN Reason: insomnia Labs 08/21/23 07:23 08/21/23 07:23 Labs: Laboratory Results - last 24 hr 08/21/23 07:23 MCV 77.3 L MCH 22.7 L MCHC 29.4 L RDW 18.2 H Plt Count 230 D MPV 11.2 Absolute Nucleated RBC 0.000 Nucleated RBC % (auto) 0.0 Anion Gap 13 Estim Creat Clear Calc 36.0 Estimated GFR 44 Random Glucose 120 H Calcium 9.7 Lactate Dehydrogenase 177 C-Reactive Protein 1.35 H Assessment and Plan (1) Acute respiratory failure with hypoxia: Status: Acute (2) COVID-19 virus infection: Status: Acute Plan 87F PMH of HTN, OA, FANNIE, HLD who presented to the hospital for malaise and weakness. Acute hypoxia 2/2 Covid 19 infection O2 dropped to 80s on RA Dexamethasone Duonebs ATC ID started remdisivir (end 08/24/23) O2 supplement, wean down as tolerated encourage PO intake PT aprpeciated recommends rehab (patient prefers to do at home) HTN continue Amlodipine chronic FANNIE Low Iron level give Iron supplement Osteoarthritis pain management DVT PPx Lovenox The patient will need overnight hospital stay for treatment of Hypoxia 2/2 Covid Quality Stroke Does the patient have a stroke diagnosis?: No VTE Prior VTE?: No VTE Risk Level:: Medical - moderate - high VTE Device Contraindication: Treatment Not Indicated VTE Drug Contraindication: N/A - Med Ordered
--- NOTE | 2023-08-21 13:55 | MHC.CM.PN ---
IMM /. EMR reviewed and per MD rounds, pt is not medically cleared for D/C due to continued management of covid-19 infection. PT recommends STR, referrals placed by previous CM. This CM spoke to daughter who would like her mother to get more strength before going back home.
[2023-08-21] MEDS: Enoxaparin Sodium 40 MG/0.4 ML SYRINGE SUBCUT (15:58)
[2023-08-21] MEDS: Remdesivir 100 MG in 0.9 % Sodium Chloride 230 ML 115 MG IV (16:07)
[2023-08-21] MEDS: Acetaminophen 325 MG TABLET 650 MG PO (20:30)
[2023-08-22] VITALS (8 sets, daily range): BP systolic 143–173; BP diastolic 64–82; PULSE 82–101; RESP 17–20; TEMP 36.2–37; O2SAT 93–98
[2023-08-22] MEDS: Acetaminophen 325 MG TABLET 650 MG PO ×2 (05:23→16:18)
[2023-08-22] MEDS: Omeprazole 40 MG CAPSULE.DR PO ×2 (05:23→16:18)
[2023-08-22] MEDS: Cholecalciferol (Vitamin D3) 25 MCG TABLET PO (08:31)
[2023-08-22] MEDS: amLODIPine Besylate 10 MG TABLET PO (08:31)
[2023-08-22] MEDS: Brimonidine Tartrate 0.2% Oph 5 ML BOTTLE 1 DROP EYE-BOTH ×2 (08:34→16:20)
--- NOTE | 2023-08-22 08:56 | HO.PM.IMPN ---
Subjective Subjective Date of Service: 08/22/23 Interval History: improved Physical Exam Vital Signs: Vital Signs: Last Vital Signs Temp 97.1 F 08/22/23 07:53 Pulse 101 H 08/22/23 08:04 Resp 20 08/22/23 08:04 BP 143/82 H 08/22/23 07:53 Pulse Ox 93 08/22/23 07:53 O2 Del Method Room Air 08/22/23 07:53 O2 Flow Rate 2 08/22/23 03:08 BMI result Body Mass Index 30.4 General: AO X 3, no acute distress Resp: CTA bilateral, no accessory muscles used CVS: S1,S2,RRR GI: soft, non tender, non distended Neuro: motor grossly intact, alert Psych: appropriate affect, appropriate insight Objective Data Active Medications Acetaminophen (Acetaminophen 325 Mg Tablet) 650 mg PO Q6H PRN PRN Reason: increased pain Last Admin: 08/22/23 05:23 Dose: 650 mg Documented By: MAMI Albuterol/Ipratropium (Albuterol/Iprat 2.5/0.5mg 3 Ml Ampul.Neb) 3 ml INHALE RQ6H WHILE AWAKE [facility] Last Admin: 08/22/23 08:01 Dose: 3 ml Documented By: ELSA Amlodipine Besylate (Amlodipine Besylate 10 Mg Tablet) 10 mg PO DAILY [facility]; Protocol Last Admin: 08/22/23 08:31 Dose: 10 mg Documented By: CHAVEZ Brimonidine Tartrate (Brimonidine Tartrate 0.2% Oph 5 Ml Bottle) 1 drop EYE-BOTH TID [facility] Last Admin: 08/22/23 08:34 Dose: 1 drop Documented By: CHAVEZ Dexamethasone Sodium Phosphate (Dexamethasone Sod Phosphate 4 Mg/Ml Vial) 6 mg IVPUSH DAILY [facility] Last Admin: 08/22/23 08:31 Dose: 6 mg Documented By: CHAVEZ Comments: Docusate Sodium (Docusate Sodium 100 Mg Capsule) 100 mg PO BID PRN PRN Reason: constipation Enoxaparin Sodium (Enoxaparin Sodium 40 Mg/0.4 Ml Syringe) 40 mg SUBCUT Q24H [facility] Last Admin: 08/21/23 15:58 Dose: 40 mg Documented By: DEMETRIUS Ferrous Sulfate (Ferrous Sulfate 324 Mg Tablet.) 324 mg PO BIDWM [facility] Last Admin: 08/22/23 08:30 Dose: 324 mg Documented By: CHAVEZ Gabapentin (Gabapentin 100 Mg Capsule) 100 mg PO BID [facility] Last Admin: 08/22/23 08:31 Dose: 100 mg Documented By: CHAVEZ Hydrochlorothiazide (Hydrochlorothiazide 25 Mg Tablet) 25 mg PO DAILY [facility]; Protocol Last Admin: 08/22/23 08:31 Dose: 25 mg Documented By: CHAVEZ Remdesivir 100 mg/ Sodium (Chloride) 230 mls @ 115 mls/hr IV Q24H [facility] Stop: 08/24/23 19:59 Last Infusion: 08/21/23 18:10 Dose: Infused Documented By: DEMETRIUS Multivitamins/Vitamin C (Multivitamin Tablet) 1 tab PO DAILY [facility] Last Admin: 08/22/23 08:31 Dose: 1 tab Documented By: CHAVEZ Nicotine (Nicotine 14 Mg Patch.Td24) 14 mg TRANSDERMA DAILY PRN PRN Reason: Nicotine Cravings Last Admin: 08/19/23 14:15 Dose: 14 mg Documented By: LISSET Non-Formulary Medication (Dextromethorphan-Guaifenesin [Mucinex Cough-Chest Congest Hb]) 1 tab-cap PO Q8H PRN PRN Reason: Cough Non-Formulary Medication (Fesoterodine [Toviaz]) 4 mg PO DAILY [facility] Non-Formulary Medication (Rosuvastatin) 20 mg PO DAILY [facility] Omeprazole (Omeprazole 40 Mg Capsule.) 40 mg PO BID@0630,1630 [facility] Last Admin: 08/22/23 05:23 Dose: 40 mg Documented By: MAMI Ondansetron HCl (Ondansetron Hcl 4 Mg/2 Ml Vial) 4 mg IVPUSH Q8H PRN PRN Reason: Nausea and Vomiting Sodium Chloride (0.9 % Sodium Chloride Flush 3 Ml Syringe) 3 ml IVFLUSH QSHIFT [facility] Last Admin: 08/22/23 08:31 Dose: 3 ml Documented By: CHAVEZ Tizanidine HCl (Tizanidine Hcl 4 Mg Tablet) 2 mg PO BID PRN PRN Reason: muscle spasms/leg cramps Last Admin: 08/18/23 22:24 Dose: 2 mg Documented By: MADDIE Vitamin D (Cholecalciferol (Vitamin D3) 25 Mcg Tablet) 25 mcg PO DAILY [facility] Last Admin: 08/22/23 08:31 Dose: 25 mcg Documented By: CHAVEZ Zolpidem Tartrate (Zolpidem Tartrate 5 Mg Tablet) 10 mg PO BEDTIME PRN PRN Reason: insomnia Labs 08/21/23 07:23 08/21/23 07:23 Assessment and Plan (1) Acute respiratory failure with hypoxia: Status: Acute (2) COVID-19 virus infection: Status: Acute Plan 87F PMH of HTN, OA, FANNIE, HLD who presented to the hospital for malaise and weakness. Acute hypoxia 2/2 Covid 19 infection O2 dropped to 80s on RA Dexamethasone Duonebs ATC ID started remdisivir (end 08/24/23) O2 supplement, wean down as tolerated encourage PO intake PT appreciated recommends rehab (patient prefers to do at home) HTN continue Amlodipine chronic FANNIE Low Iron level Iron supplement Osteoarthritis pain management DVT PPx Lovenox The patient will need overnight hospital stay for treatment of Hypoxia 2/2 Covid Quality Stroke Does the patient have a stroke diagnosis?: No VTE Prior VTE?: No VTE Risk Level:: Medical - moderate - high VTE Device Contraindication: Treatment Not Indicated VTE Drug Contraindication: N/A - Med Ordered
--- NOTE | 2023-08-22 14:03 | MHC.CM.PN ---
CM met with pt., she did not express preference to a SNF for STR except to be close to [place]. Referrals updated. CM to follow and assist with DC plan.
--- NOTE | 2023-08-22 16:41 | PM.DS ---
DS: Providers Provider Date of Service: 08/22/23 Date of admission: 08/19/23 15:33 Primary care physician: Irving Meneses MD Consults: 08/19/23 15:53 Consult to Infectious Diseases Routine Consulting Provider: [facility] Infectious Disease Reason for consultation: Hypoxia 2/2 Covid, DS: Diagnosis Discharge Diagnosis (1) Acute respiratory failure with hypoxia: Status: Acute (2) COVID-19 virus infection: Status: Acute DS: Summary Hospital Course Hospital Course: from initial hpi: 87 years old lady with PMH of HTN, OA, FANNIE, HLD who presents to the hospital for malaise and weakness. The patient reports that she started to feel weaker the day prior to presentation with associated no energy, no appetite and cough. No chest pain, palpitations, SOB, nausea, vomiting, diarrhea or urinary symptoms. She complains that her mobility is not the best because of pain in her right knee. she was primarly waiting placement in ED but then became hypoxic to 80s on RA started on O2 supplement. In ED tested positive for Covid. admitted for monitoring and further work up. hospital course: Patient was admitted for acute hypoxic respiratory failure secondary to COVID-19 infection. She was to with dexamethasone and remdesivir. Symptoms significantly improved and patient was weaned off oxygen. She will be discharged on 5 more days of prednisone. She was seen by physical therapy recommended short-term rehab, however, patient is not interested in going to prison facility. For hypertension was continued on amlodipine and hydrochlorothiazide. For chronic iron deficiency anemia will continue on iron supplement. Patient is feeling better will be discharged home. Time Attestation Discharge coordination time: Greater than 30 minutes Quality: Safe Use of Opioids Does Pt have an Active Cancer Diagnosis on the Problem List?: No Quality: Stroke Does the patient have a stroke diagnosis?: No Physical Exam Vital Signs: Vital Signs: Last Vital Signs Temp 98.6 F 08/22/23 15:32 Pulse 88 08/22/23 15:32 Resp 18 08/22/23 15:32 BP 173/75 H 08/22/23 15:32 Pulse Ox 93 08/22/23 15:32 O2 Del Method Room Air 08/22/23 15:32 O2 Flow Rate 1 08/22/23 11:39 BMI result Body Mass Index 30.4 General: AO X 3, no acute distress Resp: CTA bilateral, no accessory muscles used CVS: S1,S2,RRR GI: soft, non tender, non distended Neuro: motor grossly intact, alert Psych: appropriate affect, appropriate insight DS: Data Data Completed and Pending Completed studies during hospitalization [Text1]: Procedures Extirpation of Matter from Left Lower Leg Subcutaneous Tissue and Fascia, Open Approach (03/27/22) Repair Left Upper Leg Tendon, Open Approach (03/27/22) Replacement of Left Knee Joint with Synthetic Substitute, Uncemented, Open Approach (02/06/22) Reposition Left Patella with Internal Fixation Device, Open Approach (03/27/22) Labs on day of discharge: Preliminary micro results at discharge 08/17/23 18:33 Blood Culture - Preliminary Blood - Venous No growth after 48 hours. 08/17/23 18:23 Blood Culture - Preliminary Blood - Venous No growth after 48 hours. Discharge Plan Discharge Anticipated Discharge Date/Time: 08/22/23 16:38 Patient Disposition: Home Health Service Discharge Diagnosis: covid Referrals: Irving Meneses MD [Primary Care Provider] - 1 Week Discharge Medications: New ferrous sulfate 324 mg (65 mg iron) Tablet,Delayed Release (Dr/Ec) 324 mg PO BIDWM Qty: 60 0RF prednisone 20 mg tablet 40 mg PO DAILY Qty: 10 0RF Continued (DME) Raised Toliet Seat with handels See Rx Instructions .ROUTE .MEDSUPPLY Qty: 1 0RF Rx Instructions: As directed Osteoarthritis (DME) blood pressure monitor [Blood Pressure Kit] Kit See Rx Instructions .Route Qty: 1 0RF Rx Instructions: As directed (DME) ROLLATOR See Rx Instructions .Route .MEDSUPPLY Qty: 1 0RF Rx Instructions: As directed zolpidem 10 mg tablet 10 mg PO BEDTIME PRN (Reason: insomnia) 30 Days Qty: 30 0RF omeprazole 20 mg capsule,delayed release(DR/EC) 20 mg PO DAILY Qty: 90 3RF (DME) Orthpedic Shoes See Rx Instructions .Route .MEDSUPPLY Qty: 1 0RF Rx Instructions: As directed rosuvastatin 20 mg tablet 20 mg PO DAILY 90 Days Qty: 90 1RF amlodipine 10 mg tablet 10 mg PO DAILY Qty: 90 0RF Rx Instructions: Must make cardiology appt hydrochlorothiazide 25 mg tablet 25 mg PO DAILY Qty: 90 1RF tizanidine 2 mg tablet 2 mg PO BID PRN (Reason: muscle spasms/leg cramps) 30 Days Qty: 60 2RF gabapentin 100 mg capsule 100 mg PO BID 30 Days Qty: 60 2RF fesoterodine [Toviaz] 4 mg tablet extended release 24 hr 4 mg PO DAILY 30 Days Qty: 30 3RF diclofenac sodium 1 % gel 4 g topical QID PRN (Reason: for pain) Qty: 100 3RF cholecalciferol (vitamin D3) [Vitamin D3] 25 mcg (1,000 unit) Capsule 25 mcg PO DAILY multivitamin with iron Tablet 1 tab PO DAILY docusate sodium 100 mg Capsule 100 mg PO BID PRN (Reason: constipation) 14 Days Qty: 30 0RF (DME) RECLINER LIFT CHAIR RECLINER LIFT CHAIR See Rx Instructions .Route .MEDSUPPLY Qty: 1 0RF Rx Instructions: use as directed; Mucinex Cough-Chest Congest HB 10-200 mg capsule 1 tab-cap PO Q8H PRN (Reason: Cough) acetaminophen 325 mg tablet 650 mg PO Q6H PRN (Reason: increased pain) 30 Days Qty: 240 3RF Rx Instructions: Take NO MORE than 2000 mg of Acetaminophen DAILY celecoxib 200 mg capsule 200 mg PO BID PRN (Reason: pain) brimonidine 0.2 % drops 1 drp ophthalmic (eye) TID Discharge Orders: Discharge Order (Routine); Ordered 08/22/23 Ordered By: Rocael Phillips Diet: Advance to usual diet Activity on Discharge: As tolerated Stand Alone Forms: Patient Portal Discharge page Care Plan Goals: recovery Health Concerns: covid, weakness Plan of Treatment: 5 more days prednisone, rehab Assessment: see above
== END 2023-08-22 22:05 | disposition home or self-care (01) | DRG 177 ==
LOC: HO.ED 08-18 17:58 → HO.EDOVER 08-19 15:40 → HO.IMC 08-20 17:33
PROVIDERS: Physician Assistant; Admitting Provider Student in an Organized Health Care Education/Training Program; Emergency Provider Emergency Medicine; PCP Internal Medicine; Visit Provider Internal Medicine
DX: U07.1 COVID-19 (principal); J96.01 Acute respiratory failure with hypoxia; I10 Essential (primary) hypertension; M19.90 Unspecified osteoarthritis, unspecified site; F17.210 Nicotine dependence, cigarettes, uncomplicated; D50.9 Iron deficiency anemia, unspecified; Z71.6 Tobacco abuse counseling; Z79.899 Other long term (current) drug therapy
CPT/HCPCS: 0241U; 36415; 71045; 71275; 73560; 80048; 80076; 83540; 83605; 83615; 83690; 83880; 84484; 85025; 85027; 86140; 87040; 93005; 97116; 97161; 97530; 99285; J0248; J1100; J1650

== ENCOUNTER → 2023-08-17 18:08 | Outpatient (BNV) | payer MEDICARE, MEDICAID, SELFPAY | PROVIDERS: Emergency Provider Emergency Medicine; PCP Internal Medicine; Visit Provider Internal Medicine | DX: R00.0 Tachycardia, unspecified (principal) | CPT/HCPCS: 93010 ==

== ENCOUNTER → 2023-08-19 15:33 | Outpatient (BNV) | payer MEDICARE, SELFPAY | PROVIDERS: Admitting Provider Student in an Organized Health Care Education/Training Program; Emergency Provider Emergency Medicine; PCP Internal Medicine; Visit Provider Internal Medicine | DX: J96.01 Acute respiratory failure with hypoxia (principal); U07.1 COVID-19 | CPT/HCPCS: 99222 ==

== ENCOUNTER → 2023-08-19 15:33 | Outpatient (BNV) | payer MEDICARE, MEDICAID, SELFPAY | PROVIDERS: Admitting Provider Student in an Organized Health Care Education/Training Program; Emergency Provider Emergency Medicine; PCP Internal Medicine; Visit Provider Student in an Organized Health Care Education/Training Program | DX: U07.1 COVID-19 (principal); J96.01 Acute respiratory failure with hypoxia | CPT/HCPCS: 99223; 99232; 99239 ==

== ENCOUNTER 2024-05-18 14:04 | Outpatient (AMB) | payer MEDICARE, MEDICAID, SELFPAY ==
[2024-05-18 14:07] VITALS: BP 162/78; PULSE 88; O2SAT 97; BMI 29.0
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
== END 2024-05-18 14:50 | disposition home or self-care (01) ==
PROVIDERS: PCP Internal Medicine; Visit Provider Internal Medicine
DX: I25.10 Atherosclerotic heart disease of native coronary artery without angina pectoris (principal); E78.00 Pure hypercholesterolemia, unspecified; I10 Essential (primary) hypertension; N18.32 Chronic kidney disease, stage 3b; M17.0 Bilateral primary osteoarthritis of knee; R73.01 Impaired fasting glucose; E55.9 Vitamin D deficiency, unspecified; D50.8 Other iron deficiency anemias; K21.9 Gastro-esophageal reflux disease without esophagitis; R79.89 Other specified abnormal findings of blood chemistry; J30.9 Allergic rhinitis, unspecified; N32.81 Overactive bladder; G47.00 Insomnia, unspecified; F17.200 Nicotine dependence, unspecified, uncomplicated; E66.3 Overweight

== ENCOUNTER → 2024-05-18 14:04 | Outpatient (BNVA) | payer MEDICARE, MEDICAID, SELFPAY | PROVIDERS: PCP Internal Medicine; Visit Provider Internal Medicine | DX: I25.10 Atherosclerotic heart disease of native coronary artery without angina pectoris (principal); E78.00 Pure hypercholesterolemia, unspecified; I12.9 Hypertensive chronic kidney disease with stage 1 through stage 4 chronic kidney disease, or unspecified chronic kidney disease; N18.32 Chronic kidney disease, stage 3b; M17.0 Bilateral primary osteoarthritis of knee; R73.01 Impaired fasting glucose; E55.9 Vitamin D deficiency, unspecified; D50.8 Other iron deficiency anemias; K21.9 Gastro-esophageal reflux disease without esophagitis; R79.89 Other specified abnormal findings of blood chemistry; J30.9 Allergic rhinitis, unspecified; N32.81 Overactive bladder; E66.3 Overweight; Z68.29 Body mass index [BMI] 29.0-29.9, adult; F17.200 Nicotine dependence, unspecified, uncomplicated; Z71.6 Tobacco abuse counseling; Z71.3 Dietary counseling and surveillance | CPT/HCPCS: 99212 ==

== ENCOUNTER 2024-07-30 15:25 | Outpatient (AMB) | payer MEDICARE, MEDICAID, SELFPAY ==
--- NOTE | 2024-07-30 15:58 | A.OFFVIS_ITS ---
Intake Visit Reasons: urinary incontinence Intake Note: New Patient presents for initial visit for urinary incontinence Urology Medications: none Blood Thinner: none PVR: 37ml's Retail Brand Ambassador Required: No Accompanied by: Self / Same As Patient Allergies atorvastatin Adverse Reaction (Intermediate, Verified 07/31/24 20:05) myalgias Medication List - Last Reconciled 07/31/24 by GIULIA Flowers acetaminophen 650 mg (2 x 325 mg) PO Q6H PRN 30 days [adult pull ups/ Extra large As directed] aspirin 81 mg PO DAILY blood pressure monitor (Blood Pressure Kit) As directed brimonidine 0.2% 1 drp ophthalmic (eye) TID celecoxib 200 mg PO BID PRN cholecalciferol (vitamin D3) (Vitamin D3) 25 mcg PO DAILY diaper,brief,adult,disposable (Depend Underwear For Women XL) To be changed 6 to 8 times a day due to overactive bladder. diclofenac sodium 1% 4 grams topical QID PRN ferrous sulfate 324 mg PO BIDWM gabapentin 100 mg PO BID 30 days hydrochlorothiazide 25 mg PO DAILY lisinopril 20 mg PO DAILY metoprolol succinate ER 100 mg PO DAILY multivitamin with iron 1 tab PO DAILY omeprazole 20 mg PO DAILY PRN [Orthpedic Shoes As directed] [Raised [place] Seat with handels As directed Osteoarthritis ] [RECLINER LIFT CHAIR use as directed; ] [ROLLATOR As directed] rosuvastatin 20 mg PO DAILY 90 days tizanidine 2 mg PO BID PRN 30 days vibegron (Gemtesa) 75 mg PO DAILY 30 days [wipes As directed] HPI Comments Details: Jaki is a very pleasant 88-year-old female patient of Dr. Mneeses. She has a past medical history of macular degeneration,overweight, restrictive lung disease, current smoker, iron deficiency anemia, depression, insomnia, GERD, anemia, osteoarthritis, chronic kidney disease stage 3, hypercholesteremia, hypertension, and coronary artery disease. She presents to the office today as a new patient for mixed urinary incontinence. In discussion with the patient today she reports symptoms have been present for years however feels they are worsening. She reports noting urinary urgency, frequency, with episodes of incontinence if not near a bathroom. She does report a longstanding history of nicotine dependence of approximately 1 pack per day since the age of 16. Unable to obtain urine for urinalysis however PVR 37 mL. She otherwise d enies hematuria, dysuria, foul smelling urine, changes to urinary stream, flank pain, fever, and or chills. She reports following up with Urology in the past however is unsure as to where she went and has tried multiple medications however does not recall the names of these medications. She reports currently being on Toviaz 8 mg daily in does not feel this is helpful either. We discussed at length potential causes of mixed urinary incontinence as well as further treatment options and risks and benefits of these treatment options. We discussed obtaining retroperitoneal ultrasound for further assessment evaluation. She otherwise offers no other issues or concerns at this time. [facility] Medical History Macular degeneration Overweight (BMI 25.0-29.9) COVID-19 vaccine administered History of COVID-19 Restrictive lung disease Edema Current smoker Iron deficiency anemia Tobacco abuse Carotid bruit Obesity (BMI 30-39.9) Depression Insomnia Allergic rhinitis Elevated TSH GERD without esophagitis Impaired fasting glucose Anemia Knee osteoarthritis Vitamin D deficiency Chronic kidney disease (CKD), stage III (moderate) Pure hypercholesterolemia Benign essential hypertension Coronary artery disease Surgical History Hx of total knee arthroplasty Hx of colonoscopy Hx of cardiac cath Hx of bilateral cataract extraction History of hysterectomy Family History Father Medical history unknown Mother CVD (cardiovascular disease) Social History Household Members: Family Household Members Other:: daughter and grandson live with patient. Housing: Apartment Are you a primary women's health care nurse practitioner to a significant other at home: No Do you presently have visiting nurse or other home services: Yes (elder care) Alcohol intake: never Comment: aware of trip hazard Patient Tobacco Use Status: Current everyday Tobacco user Tobacco use type: Cigarette Cigarettes Per Day: 10 Years Smoked: 70 e-Cigarette/Vaping Use: Never Used Second Hand Smoke Exposure: Yes service: No Current occupational status: retired and disabled Cognitive needs: No (cane/walker) Hearing needs: No Vision needs: No Review of Systems Const Reports no additional complaints Eyes Reports as per [facility] ENT Reports no additional complaints Card Reports as per [facility] Resp Reports as per [facility] GI Reports as per [facility] Reports as per [facility] Musc Reports as per [facility] Neuro Reports no additional complaints Psych Reports as per HPI Alex/Lymph Reports no additional complaints Aller/Immun Reports no additional complaints Physical Exam Const General: cooperative, healthy appearing, comfortable, no acute distress, well developed, alert and awake Orientation/consciousness: patient oriented x3 HEENT Head: Yes normal to inspection, Yes normocephalic and Yes atraumatic Ears: hearing grossly normal bilaterally Eyes General: appearance normal, both eyes and all related structures Neck Neck: Yes normal visual inspection and Yes trachea midline Chest Chest palpation & inspection: normal inspection of the chest Resp Effort & Inspection: normal respiratory effort and able to speak in complete sentences Cardio Rate: regular rate GI Inspection: Yes normal to inspection General: Yes no CVA tenderness Back/Spine/Pelvis Back: no CVA tenderness Skin General skin exam: no rashes or lesions noted Neuro General: patient oriented x3 Extrem General: Yes normal to inspection Psych Appearance: grossly normal and well kempt Mental Status: mental status grossly normal Speech and movement: Normal speech and movement present and Clear speech present Affect: normal affect Attitude: cooperative Thought process: Normal thought process present Thought content: Normal thought content present Insight: Fair insight present (Psych) Judgement: Fair judgement present (Psych) Office Procedures Post Void Residual Post Residual Void Post Void Residual (PVR): 37 [id number] Void Residual by ultrasound Assessment & Plan Assessment & Plan (1) Mixed stress and urge urinary incontinence: Code(s): N39.46 - Mixed incontinence Category: Medical (2) Overactive bladder: Code(s): N32.81 - Overactive bladder Category: Medical Plan Unable to obtain urine for urinalysis however PVR 37 mL. We discussed potential causes of mixed urinary incontinence as well as further treatment options and risks and benefits of these treatment options. Stop Toviaz. Start Gemtesa as discussed and prescribed. Will obtain retroperitoneal ultrasound for further assessment evaluation. We discussed possible near future in office cystoscopy and or urodynamics for further assessment evaluation. We discussed importance of limiting/quitting nicotine dependence for improvement in lower urinary tract symptoms as well as overall health and well-being. We discussed importance of timed/scheduled voiding given decreased mobility. Follow-up in 1-3 months with PVR and imaging; or sooner with any issues, concerns, and or questions. Orders: Orders US retroperitoneal comp 07/30/24 N39.46 - Mixed incontinence AMB Post Void Residual by ultrasound 07/30/24 N39.46 - Mixed incontinence Medications: New vibegron (Gemtesa) 75 mg PO DAILY 30 tabs 3RF 30 days N32.81 - Overactive bladder Patient Instructions: The patient had an opportunity to ask questions regarding the treatment plan. All questions were answered. Physical exam, labs, and imaging were discussed and reviewed in detail. As well as risks, benefits, and discussion of treatment choices. No major barriers to understanding were identified. The patient expressed understanding and agreement with the above treatment plan. The patient was made aware they should contact our office by phone for worsening of their current condition, the appearance of new symptoms, or with any questions or concerns. Compliance is encouraged with any medications and follow up testing that is ordered. It is a privilege to be allowed the opportunity to participate in? your urological care.? Again, if you have any questions or concerns If you have any questions or concerns please do not hesitate to contact me. The office is [phone]. This note is constructed using voice recognition software. While every effort has been made to ensure accuracy drum printer errors may have been included. Yours sincerely, GIULIA Flowers Coding Level of Care Code New Pt Level 4 (95336) Diagnoses Mixed stress and urge urinary incontinence N39.46 Overactive bladder N32.81 CPT Codes Post Residual Void - PVR CPT Code: 56295-Tnxg Void Residual by ultrasound ([id number])
== END 2024-07-30 16:43 | disposition home or self-care (01) ==
PROVIDERS: PCP Internal Medicine; Visit Provider Nurse Practitioner Family
DX: N39.46 Mixed incontinence (principal); N32.81 Overactive bladder
CPT/HCPCS: 99204

== ENCOUNTER → 2024-07-30 15:25 | Outpatient (BNVA) | payer MEDICARE, MEDICAID, SELFPAY | PROVIDERS: PCP Internal Medicine; Visit Provider Nurse Practitioner Family | DX: N39.46 Mixed incontinence (principal); N32.81 Overactive bladder | CPT/HCPCS: 51798; 99202 ==

== ENCOUNTER 2024-08-27 11:41 | Inpatient (IN) | payer MEDICARE, MEDICAID, SELFPAY ==
[2024-08-27] VITALS (22 sets, daily range): BP systolic 98–168; BP diastolic 51–99; PULSE 77–143; RESP 17–26; TEMP 36.4–36.7; O2SAT 85–96; BMI 34.1; BMI 33.3
--- NOTE | ~2024-08-27 | XR_ITS ---
CLINICAL HISTORY: dyspnea 1 view chest x-ray Comparison: CR - XR CHEST 1V - 08/31/24 00:35 EST Findings: Increasing central vascular congestion with diffuse interstitial opacities and dense left basilar opacity. Persistent small bilateral effusions, mildly increased on the right. No pneumothorax. Similar prominent/enlarged cardiac silhouette. No acute fracture. IMPRESSION: Mildly worsened exam from prior. This document has been electronically signed by: Gerber Garcia MD on 09/02/2024 21:22:51
--- NOTE | ~2024-08-27 | CT_ITS ---
CLINICAL HISTORY: abd pain CT abdomen and pelvis without contrast Comparison: None Findings: Motion and streak artifact limit evaluation. Calcified granuloma in the right lung. Distal esophageal mural thickening with possible small hiatal hernia. Ill-defined patchy and dense consolidations in the lower lobes with pleural effusions. Cardiomegaly without significant pericardial effusion. Coronary artery calcifications. Hepatomegaly. Bilateral adrenal gland thickening. Bilateral perinephric stranding, nonspecific. Right-sided hypodense renal cysts. No significant hydronephrosis. Distended gallbladder with 3 cm gallstone approaching the neck of the gallbladder with wall thickening and stranding. Scattered colonic diverticulosis without diverticulitis or colitis. Diffuse fluid-filled bowel. Pelvic contents unremarkable. Normal appendix. Bladder is decompressed with Fajardo catheter. Trace ascites. Osteopenia with diffuse multilevel spondylosis. Diffuse anasarca. Diffuse atheromatous plaque disease throughout the aorta and branch vessels, without aneurysmal dilatation. IMPRESSION: 1. Ill-defined patchy and dense consolidations in the lower lobes with pleural effusions. 2. Possible developing acute calculus cholecystitis, should be correlated clinically. This may be further evaluated with ultrasound. This document has been electronically signed by: Gerber Garcia MD on 09/03/2024 20:28:58
--- NOTE | ~2024-08-27 | XR_ITS ---
EXAMINATION: XR CHEST CLINICAL INFORMATION: SOB COMPARISON: None available. TECHNIQUE: AP portable view of the chest was obtained. FINDINGS: Numerous leads overlie the thorax. Cardiac size is prominent but may be magnified by AP technique. Aorta is calcified. Mediastinal and hilar contours are normal. Mild interstitial pulmonary edema suspected, with Kailash B lines in the lung bases. A slightly more confluent opacity abutting the right heart border is present in the infrahilar region. In addition, there is retrocardiac opacity with likely effusion. There is no pneumothorax. Degenerative changes present in the spine and bilateral shoulder joints. No soft tissue abnormalities. XR/XR chest 1V IMPRESSION: 1. Suspect interstitial pulmonary edema with Kailash B lines in the lung bases. 2. Left effusion suspected. 3. Patchy airspace opacity abutting the right heart border and in the retrocardiac region could represent pneumonia or regions of alveolar edema. Electronically signed by: Tong Manuel MD 08/27/2024 12:[address] [facility]
--- NOTE | ~2024-08-27 | US_ITS ---
CLINICAL HISTORY: abd pain, ?cholecystitis US abdomen limited Comparison: CT/SR - CT ABDOMEN PELVIS WO IV CON - 09/03/24 19:54 EST Findings: The common duct is 3 mm in diameter. Mildly distended gallbladder with 3.3 cm gallstone and scattered debris/sludge. Mild wall thickening measuring 3 mm. There is no sonographic Mendez sign. The main portal vein is antegrade. IMPRESSION: Findings suggestive of possible early calculus cholecystitis. This document has been electronically signed by: Gerber Garcia MD on 09/03/2024 22:42:32
--- NOTE | ~2024-08-27 | US_ITS ---
EXAMINATION: US RETROPERITONEAL LIMITED (RENAL ONLY) CLINICAL INFORMATION: Acute kidney injury. COMPARISON: None available. TECHNIQUE: Real-time grayscale and color Doppler imaging of the kidneys. FINDINGS: RIGHT KIDNEY: 8.0 x 4.4 x 4.2 cm (SAG x AP x TRV). The kidney is normal in size, contour, and echogenicity. Renal cortical thickness is normal. No calculi or suspicious focal parenchymal lesions. No hydronephrosis. There is a lower pole simple cyst measuring 5.0 cm. LEFT KIDNEY: 9.4 x 4.7 x 4.5 cm (SAG x AP x TRV). The kidney is normal in size, contour, and echogenicity. Renal cortical thickness is normal. No calculi or focal parenchymal lesions. No hydronephrosis. There is incidental note made of a large intraluminal gallstone. There is incidental note made of the moderate left pleural effusion. US/US renal BI IMPRESSION: 1. No hydronephrosis of either kidney. 2. Simple cyst lower pole right kidney measuring 5.0 cm. 3. Incidental note made of large intraluminal gallstone, and moderate size left pleural effusion. Electronically signed by: Tong Manuel MD 08/31/2024 03:58 PM [facility]
--- NOTE | ~2024-08-27 | CT_ITS ---
CLINICAL HISTORY: f u pneumonia CT chest without contrast Comparison: CT/SR - CT ANGIO CHEST PE PROTOCOL - 08/19/23 16:33 EST Findings: Mildly enlarged heart. Moderate coronary artery calcification. Heterogeneous thyroid. Mild mediastinal lymphadenopathy without change. Apparent thickening of the mid and distal aspect of the esophagus. Moderate bilateral pleural effusions, right larger than left, new since the prior study. Adjacent areas of consolidation and volume loss within the lower lobes. New 7 mm nodule within the inferior aspect of the left upper lobe on image 23. Calcified granuloma incidentally noted within the right lower lobe. Mild scarring at the lung apices. The upper abdomen is unremarkable. No acute fractures. There is a small amount of free fluid within the right upper quadrant. IMPRESSION: 1. Moderate bilateral pleural effusions with adjacent atelectasis and/or infiltrates within the lower lobes. 2. Apparent thickening of the mid and distal esophagus. Recommend clinical correlation to exclude esophagitis. 3. New 7 mm nodule within the inferior left upper lobe. Recommend follow-up per Fleischner criteria. 4. There is a small amount of free fluid within the right upper quadrant. This document has been electronically signed by: Gianna Sneed MD on 08/30/2024 17:42:57
--- NOTE | ~2024-08-27 | XR_ITS ---
CLINICAL HISTORY: low O2 sats 1 view chest x-ray Comparison: Chest CT from 08/30/2024 Findings: Small bilateral pleural effusions with underlying atelectasis/consolidation. Bilateral pulmonary opacities are nonspecific may reflect superimposed pulmonary edema. Mild cardiomegaly and mediastinum accentuated by AP technique. Degenerative changes include the imaged shoulders. IMPRESSION: 1. Small bilateral pleural effusions with underlying atelectasis/consolidation. 2. Additional pulmonary opacities are nonspecific. Differential considerations include pulmonary edema. This document has been electronically signed by: Mino Dumont MD on 08/31/2024 01:02:16
--- NOTE | 2024-08-27 12:18 | ED_ITS ---
HPI - General Adult General Chief complaint: Upper Respiratory Symptoms Stated complaint: COPD EXAC 85% RA PER EMS Time Seen by Provider: 08/27/24 12:18 Source: patient, family (patient's daughter) and EMS Mode of arrival: EMS Limitations: no limitations History of Present Illness ED Provider: Marquita Garza PA-C HPI narrative: Patient is an 88 year old assigned female at with a history of tobacco use, cognitive decline, HTN, and an RI in early with stents presenting to the emergency department today with shortness of breath. Patient states that over the last 3 days she has had worsening shortness of breath and difficulty breathing. Patient states that she is still smoking, is not on anti-coagulation medications, and does not use oxygen at home. Patient denies any dizziness, lightheadedness, abdominal pain, nausea, vomiting, fever, chills, blurry vision, double vision, loss of vision, chest pain, back pain, night sweats, pain with urination, increased urinary frequency, increased urinary urgency, blood in her urine or stool, syncope or a near syncopal episode, recent trauma or falls, bowel incontinence, bladder incontinence, or any other complaints at this time. Onset (ago): day(s) (3) Relieving factors: none Exacerbating factors: none Associated symptoms: shortness of breath Treatments prior to arrival: other (Solumedrol and albuterol given by EMS) Related Data Home Medications ?Medication ?Instructions ?Recorded ?Confirmed cholecalciferol (vitamin D3) 25 25 mcg PO DAILY 07/21/21 05/18/24 mcg (1,000 unit) capsule (Vitamin D3) multivitamin with iron 1 tab PO DAILY 07/21/21 05/18/24 brimonidine 0.2 % eye drops 1 drp ophthalmic (eye) TID macular 04/17/23 05/18/24 degeneration celecoxib 200 mg capsule 200 mg PO BID PRN pain 04/17/23 05/18/24 omeprazole 20 mg capsule,delayed 20 mg PO DAILY PRN heartburns 05/18/24 05/18/24 release aspirin 81 mg capsule 81 mg PO DAILY 07/30/24 lisinopril 20 mg tablet 20 mg PO DAILY 07/30/24 metoprolol succinate 100 mg 100 mg PO DAILY 07/30/24 capsule sprinkle, ext. release 24 hr amlodipine 10 mg tablet 10 mg PO DAILY 08/27/24 fesoterodine 4 mg tablet,extended 4 mg PO DAILY 08/27/24 release 24 hr Previous Rx's ?Medication ?Instructions ?Recorded RECLINER LIFT CHAIR #1 ea 07/26/20 Raised [place] Seat with handels #1 ea 02/08/22 ROLLATOR #1 ea 10/23/22 blood pressure monitor (Blood #1 ea 10/23/22 Pressure Kit) Orthpedic Shoes #1 ea 04/12/23 acetaminophen 325 mg tablet 650 mg (2 x 325 mg) PO Q6H PRN 09/06/23 increased pain 30 days #240 tabs diclofenac sodium 1 % topical gel 4 g topical QID PRN for pain #100 02/24/24 grams diaper,brief,adult,disposable #68 ea 04/02/24 (Depend Underwear For Women XL) adult pull ups/ Extra large #1 ea 04/24/24 gabapentin 100 mg capsule 100 mg PO BID 30 days #60 caps 05/18/24 wipes #5 ea 06/18/24 ferrous sulfate 324 mg (65 mg 324 mg PO BIDWM #60 tabs 06/24/24 iron) tablet,delayed release hydrochlorothiazide 25 mg tablet 25 mg PO DAILY #90 tabs 06/24/24 rosuvastatin 20 mg tablet 20 mg PO DAILY 90 days #90 tabs 06/24/24 tizanidine 2 mg tablet 2 mg PO BID PRN muscle spasms/leg 07/20/24 cramps 30 days #60 tabs vibegron 75 mg tablet (Gemtesa) 75 mg PO DAILY 30 days #30 tabs 07/30/24 wheel chair #1 ea 08/18/24 Allergies Allergy/AdvReac Type Severity Reaction Status Date / Time atorvastatin AdvReac Intermediate myalgias Verified 08/27/24 12:09 Review of Systems 2 Constitutional: Constitutional: Reports no additional constitutional complaints, Denies chills, Denies fever(s) and Denies night sweats Eyes: Eyes: Reports no additional eye complaints, Denies blurry vision, Denies change in vision, Denies diplopia, Denies eye discharge, Denies loss of vision and Denies eye pain ENT: Denies dizziness Cardiovascular: Cardiovascular: Reports no additional cardiovascular complaints, Denies chest pain, Denies lightheadedness, Denies Loss of Consciousness and Reports dyspnea Respiratory: Respiratory: Reports no additional respiratory complaints, Reports cough and Reports dyspnea Gastrointestinal: Gastrointestinal: Reports no additional gastrointestinal complaints, Denies abdominal pain, Denies melena, Denies hematochezia, Denies change in bowel habits and Denies change in stool character Genitourinary: Genitourinary: Denies hematuria, Denies urinary frequency, Denies dysuria, Denies urinary incontinence, Denies urinary hesitancy and Denies urinary urgency Musculoskeletal: Musculoskeletal: Reports no additional musculoskeletal complaints, Denies numbness and Denies tingling Neurologic: Denies dizziness, Denies loss of vision, Denies numbness and Denies tingling Psychiatric: Psychiatric: Reports no additional psychiatric complaints Endocrine: Endocrine: Reports no additional endocrine complaints Hematologic/Lymphatic: Hematologic/Lymphatic: Reports no additional hematologic/lymphatic complaints Allergic/Immunologic: Allergic/Immunologic: Reports no additional allergic/immunologic complaints PMFSH Past Medical History Attestation statement: The following information was validated with the patient. (all information validated with the patient's daughter) Source: old records reviewed, obtained from family (patient's daughter provided additional history and confirmed the history provided by the patient.) and nursing notes reviewed Medical History Macular degeneration Overweight (BMI 25.0-29.9) COVID-19 vaccine administered History of COVID-19 Restrictive lung disease Edema Current smoker Iron deficiency anemia Tobacco abuse Carotid bruit Obesity (BMI 30-39.9) Depression Insomnia Allergic rhinitis Elevated TSH GERD without esophagitis Impaired fasting glucose Anemia Knee osteoarthritis Vitamin D deficiency Chronic kidney disease (CKD), stage III (moderate) Pure hypercholesterolemia Benign essential hypertension Coronary artery disease Surgical History Hx of total knee arthroplasty Hx of colonoscopy Hx of cardiac cath Hx of bilateral cataract extraction History of hysterectomy Family History Family History Father Medical history unknown Mother CVD (cardiovascular disease) Social History Social History Household Members: Family Household Members Other:: daughter and grandson live with patient. Housing: Apartment Are you a primary care specialist to a significant other at home: No Do you presently have visiting nurse or other home services: Yes (elder care) Unable to assess alcohol history related to: Unknown Alcohol intake: never Comment: aware of trip hazard Patient Tobacco Use Status: Current everyday Tobacco user Tobacco use type: Cigarette Cigarettes Per Day: 10 Years Smoked: 70 Smoked in Last 30 Days: Yes e-Cigarette/Vaping Use: Never Used Second Hand Smoke Exposure: Yes Use of substances other than those prescribed or required for medical reasons: Unknown Advance Directives: No Advance Directives Information Provided: Yes service: No Current occupational status: retired and disabled Cognitive needs: No (cane/walker) Hearing needs: No Vision needs: No Physical Exam ED Vital Signs: Vital Signs - 24 hr 08/27/24 12:08 08/27/24 12:52 08/27/24 13:53 Temperature 98 F Pulse Rate 131 H 130 H 143 H Respiratory Rate 22 H 25 H 21 H Blood Pressure 161/76 H 168/75 H Pulse Oximetry 94 87 L Oxygen Delivery Method Nasal Cannula Nasal Cannula Oxygen Flow Rate 2 08/27/24 14:23 08/27/24 14:25 08/27/24 15:30 Temperature Pulse Rate 129 H 135 H Respiratory Rate 20 26 H Blood Pressure 155/65 H Pulse Oximetry 91 L Oxygen Delivery Method Nasal Cannula Oxymask Oxygen Flow Rate 6 08/27/24 15:31 Temperature 97.7 F Pulse Rate 121 H Respiratory Rate 24 H Blood Pressure 146/71 H Pulse Oximetry 92 Oxygen Delivery Method Oxymask Oxygen Flow Rate 5 BMI result Body Mass Index 34.1 Const General: cooperative, no acute distress, alert and awake Nutritional Appearance: well nourished Orientation/consciousness: patient oriented x3 Limitations: no limitations [facility] Head: Yes normal to inspection and Yes atraumatic Ears: hearing grossly normal bilaterally and external ears normal General nose exam: Normal external nose present, no nasal discharge noted and no epistaxis Face and sinus: Yes normal facial exam, No abrasion and No laceration Mouth: Normal oral and palatal mucosa present, no drooling and no muffled voice Eyes General: appearance normal, both eyes and all related structures Periorbital: periorbital findings normal Eyelids: Yes eyelids normal Conjunctivae: conjunctivae normal Pupils: Equal, round and reactive pupils present EOM: EOMs intact bilaterally Neck Neck: Yes normal visual inspection, Yes full ROM and Yes no lymphadenopathy Chest Chest palpation & inspection: normal inspection of the chest Resp Effort & Inspection: able to speak in complete sentences and labored Auscultation: crackles diffuse and wheezes scattered wheezes and throughout Cardio Rate: tachycardic Rhythm: abnormal rhythm irregularly irregular GI Inspection: Yes normal to inspection Neuro General: patient oriented x3 and moves all extremities Cranial nerves: Yes Equal, round and reactive pupils present Cognition (Neuro): normal cognition Extrem Other: bilateral lower leg 2+ edema with minimal redness present to the right lower extremity but no warmth General: Yes full ROM and Yes capillary refill normal Psych Appearance: grossly normal Mental Status: mental status grossly normal Affect: normal affect Attitude: cooperative Thought process: Normal thought process present Thought content: Normal thought content present Insight: Good insight present (Psych) Medications Administered Generic Name Dose Route Start Last Admin Trade Name Freq PRN Reason Stop Dose Admin Apixaban 5 mg 08/27/24 15:47 08/27/24 16:18 Apixaban 5 Mg Tablet PO Not Given BID TIARA Diltiazem HCl 125 mg/ Sodium 125 mls @ 0 mls/hr 08/27/24 15:45 08/27/24 16:17 Chloride IVCONT 10 mg/hr .Q0M TIARA 10 mls/hr Administration Protocol Per Protocol Azithromycin 500 mg/ Sodium 250 mls @ 125 mls/hr 08/27/24 16:00 08/27/24 16:08 Chloride IV 08/31/24 17:59 125 mls/hr Q24H TIARA Administration Sodium Chloride 3 ml 08/27/24 16:00 08/27/24 16:09 0.9 % Sodium Chloride Flush 3 Ml Syringe IVFLUSH Not Given QSHIFT TIARA Discontinued Medications Generic Name Dose Route Start Last Admin Trade Name Freq PRN Reason Stop Dose Admin Ceftriaxone Sodium 1 gm 08/27/24 12:48 08/27/24 13:46 Ceftriaxone Sodium 1 Gm Vial IVPUSH 08/27/24 12:49 1 gm ONCE ONE Administration Diltiazem HCl 10 mg 08/27/24 13:21 08/27/24 13:51 Diltiazem Hcl 50 Mg/10 Ml Vial IVPUSH 08/27/24 13:22 10 mg STAT STA Administration Diltiazem HCl 15 mg 08/27/24 14:18 08/27/24 14:23 Diltiazem Hcl 50 Mg/10 Ml Vial IVPUSH 08/27/24 14:19 15 mg STAT STA Administration Diltiazem HCl 15 mg 08/27/24 15:37 08/27/24 16:09 Diltiazem Hcl 50 Mg/10 Ml Vial IVPUSH 08/27/24 15:38 15 mg STAT STA Administration Furosemide 40 mg 08/27/24 13:03 08/27/24 13:42 Furosemide 40 Mg/4 Ml Vial IVPUSH 08/27/24 13:04 40 mg STAT STA Administration Protocol Magnesium Sulfate/Dextrose 1 gm in 100 mls @ 100 mls/hr 08/27/24 12:48 08/27/24 14:56 Magnesium Sulfate/D5w IV 08/27/24 13:47 Infused ONCE ONE Infusion Levalbuterol HCl 2.5 mg 08/27/24 12:51 08/27/24 13:00 Levalbuterol Hcl 1.25 Mg/3 Ml Vial.Neb INHALE 08/27/24 12:52 2.5 mg ONCE ONE Administration Medical Decision Making Medical Decision Making MDM Narrative: Patient is an 88 year old assigned female at with a history of tobacco use, cognitive decline, HTN, and an RI in early with stents presenting to the emergency department today with shortness of breath. Patient's physical exam was as noted in the physical exam portion of this note. Patient's blood work showed WBC count of 12.5, trop of 58.7, and BNP of 548. Patient's urine showed no acute process. Patient's EKG showed atrial fib with RVR. Patient's chest x- ray showed evidence of RLL PNA and pulmonary edema. Patient's clinical presentation is most consistent with RLL PNA, CHF exacerbation, and atrial fib with RVR. Patient's clinical presentation is not consistent with sepsis (@1452). I spoke to the building custodian who recommended cardizem and admission. I spoke to the hospitalist who agreed to admission. I explained my physical exam findings as well as all test results to the patient and the patient's daughter. I answered all questions asked by the patient and the patient's daughter. Patient received IV ceftriaxone to address the RLL PNA, multiple bolus doses of cardizem for atrial fib rate control, magnesium for wheezing, and lasix to help with her fluid overload. Patient was initially on RA and hypoxic. Patient was transitioned to NC and then oxymask with improved saturation. Patient and the patient's daughter verbalized agreement and understanding with this treatment plan and admission. Differential Diagnosis Differential Diagnoses: The differential diagnosis associated with the presentation includes CHF exacerbation PNA Atrial fib with RVR Admission/Observation Consideration of admission/observation: Escalation of care including admission/observation considered Patient admitted as noted in the MDM Rationale portion fo this note. Consult Healthcare Provider Management of the patient was discussed with: Hospitalist (Patient admitted as noted in the MDM Rationale portion of this note.) and Senior Restaurant Manager (spoke to the building custodian, Dr. Caruso, as noted in the MDM Rationale portion of this note.) Lab Data [facility] Lab Attestation statement: I reviewed the patient's lab results. My interpretation of these results are in the MDM Rationale portion of this note. 08/27/24 13:24 08/27/24 13:24 Labs: Lab Results 08/27/24 08/27/24 08/27/24 Range/Units 13:23 13:24 13:35 WBC 12.5 H (4.8-10.8) X10*3/uL RBC 4.58 (4.20-5.50) X10*6/uL Hgb 10.8 L (12.0-16.0) g/dl Hct 37.4 (37.0-47.0) % MCV 81.7 (80.0-98.0) fL MCH 23.6 L (27.0-33.0) pg MCHC 28.9 L (31.0-35.0) g/dl RDW 17.2 H (11.0-16.0) % Plt Count 260 (160-400) X10*3/uL MPV 11.0 (9.4-12.3) fL Immature Gran % (Auto) 0.5 H (0.0-0.4) % Neut % (Auto) 92.8 H (45-73) % Lymph % (Auto) 4.2 L (20-40) % Petroleum % (Auto) 2.1 (2-11) % Eos % (Auto) 0.1 (0-4) % Baso % (Auto) 0.3 (0-2) % Lymph # (Auto) 0.5 L (1.2-4.9) X10*3/uL Petroleum # (Auto) 0.3 (0.1-1.2) X10*3/uL Eos # (Auto) 0.0 (0.0-0.4) X10*3/uL Baso # (Auto) 0.0 (0.0-0.2) X10*3/uL Abs Immat Gran (auto) 0.06 H (0.00-0.03) X10*3/uL Absolute Neuts (auto) 11.6 H (2.0-8.3) x10*3/uL Absolute Nucleated RBC 0.000 (0.0-0.012) X10*3/uL Nucleated RBC % (auto) 0.0 (0.0-0.2) /100WBC Smear Tech's Comments VERIFIED PT 13.2 H (10.9-12.4) SEC INR 1.1 (0.9-1.1) APTT 29.4 (26.0-36.8) SEC VBG pH 7.32 (7.32-7.43) VBG pCO2 47 mmHg VBG pO2 40 mmHg VBG HCO3 24 (22-26) mmol/L VBG O2 Saturation 61.0 % VBG Base Excess -1.6 mmol/L Sodium 140 (135-145) mmol/L Potassium 5.2 H (3.3-5.1) mmol/L Chloride 106 (96-108) mmol/L Carbon Dioxide 23 (22-29) mmol/L Anion Gap 16 (12-20) BUN 30 H (9-16) mg/dL Creatinine 1.34 (0.5-1.4) mg/dL Estim Creat Clear Calc 32.6 Estimated GFR 37 Random Glucose 137 H (60-115) mg/dL Lactic Acid 1.3 (0.5-2.0) mmol/L Calcium 10.1 (8.4-10.2) mg/dL Magnesium 2.3 (1.6-2.6) mg/dL Total Bilirubin 1.1 H (0.0-1.0) mg/dL AST 26 (5-31) U/L ALT 17 (0-31) U/L Alkaline Phosphatase 129 H (39-117) U/L Troponin I High Sens 58.7 H* D (<3.5-17.0) ng/L B-Natriuretic Peptide 548 H (<100) pg/mL Total Protein 7.5 (6.5-8.0) g/dL Albumin 3.9 (3.5-5.0) g/dL Influenza Type A (PCR) NEGATIVE (Negative) Influenza Type B (PCR) NEGATIVE (Negative) RSV RNA Qual (PCR) NEGATIVE (Negative) SARS-CoV-2 RNA (RT-PCR) NEGATIVE (Negative) Independent Interpretation I performed an independent interpretation of an: EKG and Plain X-Ray Interpretation: My interpretation is in agreement with the radiologist's impression of this imaging study. L EXAMINATION: XR CHEST CLINICAL INFORMATION: SOB COMPARISON: None available. TECHNIQUE: AP portable view of the chest was obtained. FINDINGS: Numerous leads overlie the thorax. Cardiac size is prominent but may be magnified by AP technique. Aorta is calcified. Mediastinal and hilar contours are normal. Mild interstitial pulmonary edema suspected, with Kailash B lines in the lung bases. A slightly more confluent opacity abutting the right heart border is present in the infrahilar region. In addition, there is retrocardiac opacity with likely effusion. There is no pneumothorax. Degenerative changes present in the spine and bilateral shoulder joints. No soft tissue abnormalities. XR/XR chest 1V IMPRESSION: 1. Suspect interstitial pulmonary edema with Kailash B lines in the lung bases. 2. Left effusion suspected. 3. Patchy airspace opacity abutting the right heart border and in the retrocardiac region could represent pneumonia or regions of alveolar edema. Electronically signed by: Tong Manuel MD 08/27/2024 12:55 PM [facility] Dictated By: Tong Manuel MD Signed By: Electronically signed by Tong Manuel MD 08/27/24 1255 I independently interpreted this EKG and am in agreement with the below findings: Vent. Rate: 132 BPM Atrial Rate: * BPM P-R Int: * ms QRS Dur: 76 ms QT Int: 268 ms P-R-T Axes: * 97 3 degrees QTcB Int: 397 ms Atrial fibrillation with rapid ventricular response Rightward axis When compared with ECG of 17-Aug-2023 18:27, Atrial fibrillation has replaced Sinus rhythm Questionable change in QRS axis DD/ 1259 Radiology Impression Discussion of test interpretation with radiology: I have reviewed the radiologist's reading. Independent Historian Clinical information obtained from an independent historian. History obtained from or confirmed by: EMS (EMS provided additional history and confirmed the history provided by the patient.) and Other (patient's daughter provided additional history and confirmed the history provided by the patient.) Chronic Conditions Patient?s care impacted by: Hypertension Critical Care Time Critical Care Time Critical Care Time: Yes Total Critical Care Time: 51 Attestation: I spent 51 minutes of Critical Care Time with this patient. This does not include time spent on separately reported billable procedures. Discharge Plan Discharge Clinical Impression: Acute exacerbation of congestive heart failure, Atrial fibrillation with RVR, Pneumonia, Hypoxia Patient Disposition: Admitted As Inpatient
--- NOTE | 2024-08-27 12:36 | ECG_ITS ---
Test Reason : SOB Blood Pressure : */* mmHG Vent. Rate : 132 BPM Atrial Rate : * BPM P-R Int : * ms QRS Dur : 76 ms QT Int : 268 ms P-R-T Axes : * 97 3 degrees QTcB Int : 397 ms Atrial fibrillation with rapid ventricular response Rightward axis Abnormal ECG When compared with ECG of 17-Aug-2023 18:27, Atrial fibrillation has replaced Sinus rhythm Questionable change in QRS axis Referred By: Marquita Garza Electronically Signed By: CYNTHIA BOWER
[2024-08-27] MEDS: levalbuterol HCL 1.25 MG/3 ML VIAL.NEB 2.5 MG INHALE (13:00)
[2024-08-27 13:36] LABS: Basophils Percent Auto 0.3 % (0-2); Eosinophils Percent Auto 0.1 % (0-4); Hematocrit 37.4 % (37.0-47.0); Hemoglobin 10.8 g/dl (12.0-16.0); Imm Gran Abs Auto 0.06 X10*3/uL (0.00-0.03); Imm Gran Pct Auto 0.5 % (0.0-0.4); Lymphocytes Absolute Auto 0.5 X10*3/uL (1.2-4.9); Lymphocytes Percent Auto 4.2 % (20-40); MANUAL DIFF FLAG SCAN; Mean Corpuscular HGB Conc 28.9 g/dl (31.0-35.0); Mean Corpuscular Hemoglobin 23.6 pg (27.0-33.0); Mean Corpuscular Volume 81.7 fL (80.0-98.0); Monocytes Absolute Auto 0.3 X10*3/uL (0.1-1.2); Monocytes Percent Auto 2.1 % (2-11); Neutrophils Absolute Auto 11.6 x10*3/uL (2.0-8.3); Neutrophils Percent Auto 92.8 % (45-73); Platelet Count 260 X10*3/uL (160-400); Red Blood Count 4.58 X10*6/uL (4.20-5.50); Red Cell Distribution Width 17.2 % (11.0-16.0); SCAN SMEAR FLAG 1; White Blood Count 12.5 X10*3/uL (4.8-10.8)
[2024-08-27 13:40] LABS: VBG Base Excess -1.6 mmol/L; VBG HCO3 24 mmol/L (22-26); VBG pCO2 47 mmHg; VBG pH 7.32 (7.32-7.43); VBG pO2 40 mmHg
[2024-08-27] MEDS: Magnesium Sulfate/D5W 1 GM/100 ML PIGGYBACK IV (13:41)
[2024-08-27] MEDS: Furosemide 40 MG/4 ML VIAL IVPUSH ×2 (13:42→20:07)
[2024-08-27 13:45] LABS: Venous Blood Gas Refer to POC result
[2024-08-27] MEDS: cefTRIAXone sodium 1 GM VIAL IVPUSH (13:46)
[2024-08-27 13:50] LABS: INTERNATIONAL NORM RATIO 1.1 (0.9-1.1); Prothrombin Time 13.2 SEC (10.9-12.4)
[2024-08-27] MEDS: dilTIAZem HCL 50 MG/10 ML VIAL 10 MG IVPUSH (13:51)
[2024-08-27 13:53] LABS: Partial Thromboplastin Time 29.4 SEC (26.0-36.8)
[2024-08-27 13:58] LABS: Lactic Acid 1.3 mmol/L (0.5-2.0)
[2024-08-27 14:03] LABS: B Type Natriuretic Peptide 548 pg/mL (<100)
[2024-08-27 14:05] LABS: SLIDE REVIEW VERIFIED
[2024-08-27 14:08] LABS: Troponin-I High Sensitivity 58.7 ng/L (<3.5-17.0)
[2024-08-27 14:15] LABS: Alanine Aminotransferase 17 U/L (0-31); Albumin Level 3.9 g/dL (3.5-5.0); Alkaline Phosphatase 129 U/L (39-117); Anion Gap 16 (12-20); Aspartate Amino Transferase 26 U/L (5-31); Bilirubin Total 1.1 mg/dL (0.0-1.0); Blood Urea Nitrogen 30 mg/dL (9-16); Calcium 10.1 mg/dL (8.4-10.2); Carbon Dioxide 23 mmol/L (22-29); Chloride 106 mmol/L (96-108); Creatinine Clr Calc Pharmacy 32.6; Estimated Glomerular Filt Rate 37; Glucose Random 137 mg/dL (60-115); Magnesium 2.3 mg/dL (1.6-2.6); Potassium 5.2 mmol/L (3.3-5.1); Sodium 140 mmol/L (135-145); Total Protein 7.5 g/dL (6.5-8.0)
[2024-08-27] MEDS: dilTIAZem HCL 50 MG/10 ML VIAL 15 MG IVPUSH ×2 (14:23→16:09)
--- NOTE | 2024-08-27 14:26 | PC.NURSE ---
o2 sats noted to be 85-90 on monitor. placed on oximask per rt rec with desired sat of 89-92
[2024-08-27 14:28] LABS: Influenza A PCR NEGATIVE (Negative); Influenza B PCR NEGATIVE (Negative); Resp Syncy Virus RNA Qual PCR NEGATIVE (Negative); SARS COV2 PCR INHOUSE NEGATIVE (Negative)
--- NOTE | 2024-08-27 15:27 | PC.NURSE ---
assumed care of patient at 1500, patient on oxymask with increased WOB, inpatient attending at bedside asked RT to place patient on cpap. patient repositioned in bed, linens dry and clean, purewick in place. cpap setting 8 and 40%. patient remains in afib rate 110s-150s. patient is awake and alert with name call, able to answer questions appropriately, skin noted to be dry and intact.
--- NOTE | 2024-08-27 15:48 | PM.IMHP ---
History of Present Illness Date of Service: 08/27/24 Chief Complaint: Shortness of breaths 88 year old female with a history of tobacco use, cognitive decline, HTN, and an KS in early with stents presenting to the emergency department today with shortness of breath. Patient states that over the last 3 days she has had worsening shortness of breath and difficulty breathing. Continues to smoke approximately 1 pack a day; states over the last 3 days the shortness of breath has been accompanied by a productive cough and today became such that she could not walk across the room without stopping.. In our workup consistent with acute CHF which is new along with AFib with a rapid ventricular response. She received bolus Cardize dosing with placed on a drip. She did have some work of breathing and was placed on CPAP with good results. Admission was requested Review of Systems Review of Systems: Denies chest pain Admits shortness of breath with minimal exertion Denies nausea vomiting diarrhea Denies fever chills PMFSH Medical History Macular degeneration Overweight (BMI 25.0-29.9) COVID-19 vaccine administered History of COVID-19 Restrictive lung disease Edema Current smoker Iron deficiency anemia Tobacco abuse Carotid bruit Obesity (BMI 30-39.9) Depression Insomnia Allergic rhinitis Elevated TSH GERD without esophagitis Impaired fasting glucose Anemia Knee osteoarthritis Vitamin D deficiency Chronic kidney disease (CKD), stage III (moderate) Pure hypercholesterolemia Benign essential hypertension Coronary artery disease Family History Father Medical history unknown Mother CVD (cardiovascular disease) Surgical History Hx of total knee arthroplasty Hx of colonoscopy Hx of cardiac cath Hx of bilateral cataract extraction History of hysterectomy Social History Household Members: Family Household Members Other:: daughter and grandson live with patient. Housing: House Are you a primary healthcare social worker to a significant other at home: No Do you presently have visiting nurse or other home services: Yes (elder care) Unable to assess alcohol history related to: Unknown Alcohol intake: never Comment: aware of trip hazard Patient Tobacco Use Status: Current everyday Tobacco user Tobacco use type: Cigarette Cigarette Packs Per Day: 1 Cigarettes Per Day: 20.0 Years Smoked: 70 Smoked in Last 30 Days: Yes e-Cigarette/Vaping Use: Never Used Patient Interested in Nicotine Replacement: Yes Second Hand Smoke Exposure: Yes Use of substances other than those prescribed or required for medical reasons: No Currently Displaying Signs/Symptoms of Drug Intoxication Withdrawal: No Have you been hit, kicked, punched, or otherwise hurt by someone within the past year? If so, by whom?: No Do you feel safe in your current relationship?: No Is there a partner from a previous relationship who is making you feel unsafe now?: No Are you made to feel afraid or neglected: No Advance Directives: No Advance Directives Information Provided: Yes Do you have a plan to hurt others: No Plan Recently lost weight without trying: No Eating poorly because of decreased appetite: No Patient : No : No Poor oral hygiene: No service: No Current occupational status: retired and disabled Cognitive needs: No (cane/walker) Hearing needs: No Vision needs: No Meds Allergies Allergy/AdvReac Type Severity Reaction Status Date / Time atorvastatin AdvReac Intermediate myalgias Verified 08/27/24 12:09 Active Medications: Current Medications Acetaminophen (Acetaminophen 325 Mg Tablet) 650 mg PO Q6H PRN PRN Reason: Pain, Mild 1-3,fever,headache Calcium Carbonate (Calcium Carbonate 750 Mg Tab.Chew) 750 mg PO Q4H PRN PRN Reason: Heartburn Ceftriaxone Sodium (Ceftriaxone Sodium 1 Gm Vial) 1 gm IVPUSH Q24H [facility] Diltiazem HCl 125 mg/ Sodium (Chloride) 125 mls @ 0 mls/hr IVCONT .Q0M [facility]; Protocol Azithromycin 500 mg/ Sodium (Chloride) 250 mls @ 125 mls/hr IV Q24H [facility] Stop: 08/31/24 17:59 Magnesium Hydroxide (Milk Of Magnesia 30 Ml Oral.Susp) 30 ml PO DAILY PRN PRN Reason: Constipation Melatonin (Melatonin 3 Mg Tablet) 6 mg PO BEDTIME PRN PRN Reason: Insomnia Sodium Chloride (0.9 % Sodium Chloride Flush 3 Ml Syringe) 3 ml IVFLUSH QSHIFT [facility] Home Medications ?Medication ?Instructions ?Recorded ?Confirmed ?Last Taken ?Type brimonidine 0.2 % eye drops 1 drp ophthalmic (eye) TID macular 04/17/23 08/27/24 Unknown History degeneration omeprazole 20 mg capsule,delayed 20 mg PO DAILY@0630,1630 PRN 05/18/24 08/27/24 Unknown History release heartburns aspirin 81 mg capsule 81 mg PO DAILY 07/30/24 08/27/24 Unknown History amlodipine 10 mg tablet 10 mg PO DAILY 08/27/24 08/27/24 Unknown History fesoterodine 4 mg tablet,extended 4 mg PO DAILY PRN Overactive 08/27/24 08/27/24 Unknown History release 24 hr Bladder gabapentin 100 mg capsule 100 mg PO BID PRN Pain 08/27/24 08/27/24 Unknown History rosuvastatin 20 mg tablet 20 mg PO BEDTIME 08/27/24 08/27/24 Unknown History Physical Exam Vital Signs and Narrative: Vital Signs: Last Vital Signs Temp 97.7 F 08/27/24 15:31 Pulse 121 H 08/27/24 15:31 Resp 24 H 08/27/24 15:31 BP 146/71 H 08/27/24 15:31 Pulse Ox 92 08/27/24 15:31 O2 Del Method Oxymask 08/27/24 15:31 O2 Flow Rate 5 08/27/24 15:31 Oxygen Flow Rate 3 08/27/24 12:08 BMI result Body Mass Index 34.1 Const: Other: Awake alert able to speak in short sentences Resp: Other: Diminished throughout with bilateral basilar crackles Cardio: Other: No S4; positive S1-S2; no S3 murmurs rubs or gallops. Irregularly irregular GI: Other: Soft nontender nondistended normoactive bowel sounds Extrem: Other: No edema bilaterally Results Labs 08/28/24 06:44 08/28/24 06:44 Labs: Laboratory Results - last 24 hr 08/27/24 08/27/24 08/27/24 13:23 13:24 13:35 MCV 81.7 MCH 23.6 L MCHC 28.9 L RDW 17.2 H Plt Count 260 MPV 11.0 Immature Gran % (Auto) 0.5 H Neut % (Auto) 92.8 H Lymph % (Auto) 4.2 L Henry % (Auto) 2.1 Eos % (Auto) 0.1 Baso % (Auto) 0.3 Lymph # (Auto) 0.5 L Henry # (Auto) 0.3 Eos # (Auto) 0.0 Baso # (Auto) 0.0 Abs Immat Gran (auto) 0.06 H Absolute Neuts (auto) 11.6 H Absolute Nucleated RBC 0.000 Nucleated RBC % (auto) 0.0 Smear Tech's Comments VERIFIED PT 13.2 H INR 1.1 APTT 29.4 VBG pH 7.32 VBG pCO2 47 VBG pO2 40 VBG HCO3 24 VBG O2 Saturation 61.0 VBG Base Excess -1.6 Anion Gap 16 Estim Creat Clear Calc 32.6 Estimated GFR 37 Random Glucose 137 H Lactic Acid 1.3 Calcium 10.1 Magnesium 2.3 Total Bilirubin 1.1 H AST 26 ALT 17 Alkaline Phosphatase 129 H Troponin I High Sens 58.7 H* D B-Natriuretic Peptide 548 H Total Protein 7.5 Albumin 3.9 Influenza Type A (PCR) NEGATIVE Influenza Type B (PCR) NEGATIVE RSV RNA Qual (PCR) NEGATIVE SARS-CoV-2 RNA (RT-PCR) NEGATIVE Imaging Radiologist's Impressions: Impressions Chest X-Ray 08/27/24 12:36 IMPRESSION: 1. Suspect interstitial pulmonary edema with Kailash B lines in the lung bases. 2. Left effusion suspected. 3. Patchy airspace opacity abutting the right heart border and in the retrocardiac region could represent pneumonia or regions of alveolar edema. Electronically signed by: Tong Manuel MD 08/27/2024 12:55 PM [facility] Assessment and Plan (1) Atrial fibrillation with rapid ventricular response: Status: Acute (2) Hypertension: Qualifiers: Hypertension type: primary hypertension Qualified Code(s): I10 - Essential (primary) hypertension Status: Acute Plan 80-year-old female with a history of tobacco abuse (1 pack a day) hypertension and coronary artery disease presents to the emergency room today with worsening shortness of breath over the last week with sputum production; monitor demonstrates AFib with RVR. Given Lasix/Cardizem/magnesium in ER 1. AFib with RVR -additional diltiazem bolus followed by drip -Eliquis 5 mg b.i.d. -2D echo in a.m. -cardiology consult in a.m. 2. Acute CHF -CPAP to lessen work of breathing... Titrate O2 and CPAP as clinically indicated -Lasix 40 mg IV b.i.d. -2D echo as above 3. Hypertension -poor control at present -nitro paste 1 in topically x1 and follow clinically -resume outpatient therapies -adjust as indicated 4. COPD exacerbation in backdrop of community-acquired pneumonia -ceftriaxone/azithromycin (1) -Xopenex nebs as needed -titrate O2 to maintain sats greater than equal to 90% Full code Daylin Will require at least 2 midnights of inpatient stay going forward to control ventricular response rate with IV Cardizem and to treat acute CHF with IV Lasix. She will also requires specialty consultation. This can not be achieved a lesser acute setting Quality Stroke Does the patient have a stroke diagnosis?: No VTE Prior VTE?: No VTE Risk Level:: Medical - moderate - high VTE Device Contraindication: Treatment Not Indicated VTE Drug Contraindication: N/A - Med Ordered
[2024-08-27] MEDS: Azithromycin 500 MG in 0.9 % Sodium Chloride 250 ML 125 MG IV (16:08)
[2024-08-27] MEDS: dilTIAZem HCL 125 MG in 0.9 % Sodium Chloride 100 ML 10 MG IVCONT ×2 (16:17→23:50)
[2024-08-27] MEDS: Nitroglycerin 2 % Oint 1 GM Packet 1 INCH TRANSDERMA (16:31)
[2024-08-27 16:35] LABS: Troponin-I High Sensitivity 57.7 ng/L (<3.5-17.0)
--- NOTE | 2024-08-27 16:36 | PC.NURSE ---
patient placed on dilt gtt starting 10mg/hr rate 110s-130s on tele, patient tolerated well. 15min later titrated patint to 15mg/hr dilt gtt, per MAR. VSS. nitro paste applied to patient left chest per MAR> patient remains on cpap, tolerating well, patient appears comfortable, resp even and unlabored. VSS at this time. secondary IV placed in patient right wrist #20 by this RN
--- NOTE | 2024-08-27 17:45 | PHA.MEDREC ---
Addendum entered by Tootie Bryant RPh 08/27/24 17:59: reviewed by [facility]. Original Note: Pharmacy Consult ? Medication Reconciliation Pharmacy has completed the medication reconciliation. Spoke with patients son at bedside and he did not know his moms medications and directed me to his sister Reina. I called and spoke with her where she was able to confirm the patients medications with Rx bottles she has on hand at home for her. She did not know if her mom was taking Rosuvastatin 20mg tabs or not and stated she did not see an Rx bottle there but if anything her sister Gianna would be able to confirm anymore questions about their moms medications since she is the one who primarily goes and bring their mom to her Dr's appointments. I called Gianna and she was able to confirm that her mom is taking the Rosuvastatin 20mg tab at bedtime and was able to reconfirm the medication list with me. Non of the patients children knew the last time the patient had taken her medications.
--- NOTE | 2024-08-27 19:59 | PC.NURSE ---
Took over care from KARI Alexandra, 16f de la cruz placed, due to retaining urine. 450cc output, concentrated urine, UA ordered and sent.
[2024-08-27 20:09] LABS: Appearance Urine Clear; Color Urine Yellow; Glucose Urine UA Negative (Negative); Leukocyte Esterase Urine Negative (Negative); Nitrite Urine Negative (Negative); PH 5.5 (5.0-9.0); Specific Gravity - Urine 1.015 (1.005-1.025); UMIC TRIGGER UACC YES; Urine Blood Negative (Negative); Urine Ketones Negative (Negative); Urine Protein 300 (3+) mg/dL (Neg-Trace)
[2024-08-27 20:12] LABS: Bacteria Urine None Seen (None Seen); RBC Urine 0-2 /HPF (0-2); Squamous Epithelial Cell Urine 0-2 /HPF (0-2); WBC Urine 0-5 /HPF (0-5)
[2024-08-27] MEDS: metOLazone 2.5 MG TABLET PO (20:27)
--- NOTE | 2024-08-27 21:46 | PC.NURSE ---
Report given and pt transferred to unit.
[2024-08-27] MEDS: Apixaban 5 MG TABLET PO (22:41)
[2024-08-27] MEDS: Brimonidine Tartrate 0.2% Oph 5 ML BOTTLE 1 DROP EYE-BOTH (22:41)
[2024-08-27] MEDS: 0.9 % Sodium Chloride Flush 3 ML SYRINGE IVFLUSH (22:44)
[2024-08-27] MEDS: Albuterol Sulfate (0.083%) 2.5 MG/3 ML VIAL.NEB INHALE (23:05)
[2024-08-28] VITALS (22 sets, daily range): BP systolic 123–160; BP diastolic 63–85; PULSE 76–124; RESP 16–20; TEMP 36.3–37; O2SAT 87–94
--- NOTE | 2024-08-28 02:18 | HO.SKINPHOTO ---
Location: coccyx stage II, present on admission 08/27
--- NOTE | 2024-08-28 03:31 | PC.NURSE ---
Addendum entered by Harriet Rizo RN 08/28/24 06:54: Patient HR maintained off of cardizem gtt overnight. However, patient noted this morning with new desats in mid to upper 80's both on cpap and then on 5L oxymask after transitioned by respiratory for a break from cpap per pt request/refusing further cpap at the time. Desats continued on oxymask 5L, pt required increasing o2 up to 7L nc with some improvement in spo2 to upper 80's/low 90's. Lungs reassessed, dim with crackles in bilateral bases without wheeze. Pt denied sob, breathing was observed even and unlabored without distress. Respiratory was notified and to bedside multiple times as requested to assist with spo2 and offer recommendations. Covering Dr. Antonio Peralta was also made aware, advised pt copd/retainer and advised mortgage underwriter to attempt to wean o2 to an spo2 goal of 88-90%. MD order for okay to give 09:00 scheduled lasix early and attempt to place pt back on cpap. CXR repeat deferred by MD, VBG ordered and obtained. Pt was educated by mortgage underwriter and agreeable to cpap, Cpap of 12 with 6L o2 in-line placed by respiratory with spo2 since improved 90-94%. Plan of care continues. Handoff report given to oncoming RN. Original Note: [employer] assumed care of patient at 22:00 on arrival to s4 from ED. Pt admitted for CHF exacerbation, ? pna, and found to be in afib RVR requiring cardizem gtt initiation in ED. Pt is A&Ox3, [place] though denies hearing aid use. Pt on cardizem gtt infusing at 15mg/hr on arrival, tele showing afib. Cardizem titration per OCT/protocol, covering Dr. Antonio Peralta made aware of gtt being paused per OCT protocol and associated vitals, with MD orders advised 02:00 hour to continue to hold gtt for HR <120 as per OCT. Pt denies chest pain or palpitations. +radial and dp pulses, +cms. On scheduled lasix, azithromycin, and Rocephin. Pt on 5L oxymask on arrival, +significant SPENCE on exertion and with speaking, audible wheezing. MD notified with scheduled and prn respiratory treatments ordered. Respiratory notified of assessment and to bedside, treatment given and pt placed on cpap per order, pt is tolerating well. Spo2 maintained 90-94% continuous o2 monitoring, as per oxygen administration protocol order in place. Breathing remains even and unlabored without distress. Fajardo cath in place on arrival patent of odorless cyu. Fajardo care provided. Remains NPO w/ meds as ordered. PO care provided. Wound care consult placed for stage II to coccyx. Skin photo uploaded to skin note. Foam applied, frequent repositioning provided. Please see shift assessments, worklist, vitals, and MAR for full details. Bed alarm and high falls measures in place. Plan of care continues.
[2024-08-28] MEDS: Furosemide 40 MG/4 ML VIAL IVPUSH ×2 (05:45→18:10)
[2024-08-28 06:49] LABS: MANUAL DIFF FLAG NO
[2024-08-28 06:50] LABS: Venous Blood Gas Refer to POC result
[2024-08-28 06:52] LABS: VBG Base Excess -2.1 mmol/L; VBG HCO3 22 mmol/L (22-26); VBG pCO2 39 mmHg; VBG pH 7.36 (7.32-7.43); VBG pO2 57 mmHg
[2024-08-28 06:54] LABS: Hemoglobin 9.8 g/dl (12.0-16.0); Imm Gran Abs Auto 0.06 X10*3/uL (0.00-0.03); Imm Gran Pct Auto 0.7 % (0.0-0.4); Lymphocytes Absolute Auto 0.7 X10*3/uL (1.2-4.9); Lymphocytes Percent Auto 7.7 % (20-40); Mean Corpuscular HGB Conc 29.7 g/dl (31.0-35.0); Mean Corpuscular Hemoglobin 23.7 pg (27.0-33.0); Mean Corpuscular Volume 79.9 fL (80.0-98.0); Mean Platelet Volume 9.9 fL (9.4-12.3); Monocytes Absolute Auto 0.3 X10*3/uL (0.1-1.2); Monocytes Percent Auto 3.9 % (2-11); Neutrophils Absolute Auto 7.4 x10*3/uL (2.0-8.3); Neutrophils Percent Auto 87.7 % (45-73); Platelet Count 228 X10*3/uL (160-400); Red Blood Count 4.13 X10*6/uL (4.20-5.50); Red Cell Distribution Width 17.2 % (11.0-16.0); White Blood Count 8.4 X10*3/uL (4.8-10.8)
--- NOTE | 2024-08-28 07:00 | CA_ITS ---
Transthoracic Echocardiogram Patient (Last, First, Middle): Jaki Kulkarni, Gender: Female Date of : 1935 Age: 88 Procedure Date: 08/28/2024 Procedure Type: [place]ansthoracic [place] [facility] [place]: 165.1 cm Weight: 90.72 kg BSA: 1.98 m2 Heart Rate: bpm BP: 125 / 73 mmHg Slot Supervisor: Referring MD: Mihai Reynolds DO Symptoms: CHF Study Quality: Adequate ECG Rhythm: Atrial Fibrillation Conclusions: - Visually estimated LVEF about 40%. - There is moderate to severe tricuspid valve regurgitation. - Moderate pulmonary hypertension is present. Findings Left Ventricle Normal left ventricular cavity size. There is mildly increased left ventricular wall thickness. The left ventricular systolic function is moderately decreased. There is moderate global hypokinesis. Diastolic function is indeterminate on the basis of available data. Visually estimated LVEF about 40%. Right Ventricle Mildly increased right ventricular cavity size. There is low normal right ventricular systolic function. Atria The left atrium is moderately dilated. The right atrium is mildly dilated. Aortic Valve The aortic valve was not well visualized. There is no aortic valve stenosis. There is no aortic valve regurgitation. Mitral Valve The mitral valve appears normal. There is trace mitral valve regurgitation. There is no mitral valve stenosis. Pulmonic Valve The pulmonic valve is likely normal. Tricuspid Valve There is moderate to severe tricuspid valve regurgitation. The right ventricular systolic pressure is 62 mmHg. Moderate pulmonary hypertension is present. Great Vessels The asc aorta is normal in size. Venous The inferior vena cava is mildly dilated and collapses less than 50% with inspiration. Pericardium/Pleural There is no evidence of pericardial effusion. There is a left sided pleural effusion. Prior Study Comparison Changes noted compared to prior study dated: 11/21/2004. Decrease in LVEF. Measurements 2D Linear Measurements IVSd: 1.27 0.6-0.9/0.6-1.0 cm LVIDd: 3.91 3.9-5.3/4.2-5.9 cm LVIDd Index: 1.97 2.4-3.2/2.2-3.1 cm/m2 LVIDs: 2.91 2.0-3.6 cm LVPWd: 1.25 0.7-1.1 cm Ao Root: 3.10 2.1-3.5 cm LA Diam: 4.80 2.7-3.8/3.0-4.0 cm LAIDs Index: 2.42 1.5-2.3 cm/m2 LV Mass: 214.31 67-162/88-224 g LV Mass Index: 108.24 43-95/49-115 g/m2 LVOT Diam: 2.00 3.0+(-)1.3 cm 2D Systolic Function EF 4C: 38.10 >55% EF 2C: 38.80 >55% EF BiP: 35.10 >55% Mitral Valve MV VTI: 0.27 MV Pk Romeo: 1.66 MV Mn Romeo: 0.78 MV Pk Grad: 11.00 MV Mn Grad: 3.00 MV Pk E: 1.42 MV Decel Time: 133.00 E'Lateral: 8.81 E'Medial: 5.87 E/E' Med: 24.20 E/E' Lat: 16.10 PHT: 39.00 MVA PHT: 5.64 MVA Continuity: 1.88 Decel Maries: 10.68 Aortic Valve AoV Pk Romeo: 1.21 AoV Mn Romeo: 0.78 AoV VTI: 0.23 AoV Pk Grad: 6.00 Aov Mn Grad: 3.00 DEANA Cont.VTI: 2.21 LVOT LVOT Pk Romeo: 0.82 LVOT Mn Romeo: 0.54 LVOT VTI: 0.16 LVOT Pk Grad: 3.00 LVOT Mn Grad: 1.00 LVOT Diam: 2.00 LVOT Area: 3.14 Diastolic Function MV Pk E: 1.42 E'Medial: 5.87 E/E' Med: 24.20 E' Laterial: 8.81 E/E' Lat: 16.10 Right Ventricle TAPSE (mm): 18.00 Tricuspid Valve TR Pk Romeo: 3.44 TR Pk Grad: 47.00 RA Press: 15.00 RVSP: 62.00 Great Vessels Aorta Ao Root-2D: 3.10 2.0-3.7 cm Ao Asc: 2.80 2.1-3.4 cm Pulmonary Valve PV Pk Romeo: 1.07 Peak PV Grad: 5.00 Updated in Other Vendor System with Status of Final Alberto Caruso MD electronically signed on 08/28/2024 5:31:40 PM with status of Final
[2024-08-28 07:08] LABS: Alanine Aminotransferase 15 U/L (0-31); Albumin Level 3.4 g/dL (3.5-5.0); Alkaline Phosphatase 112 U/L (39-117); Anion Gap 17 (12-20); Aspartate Amino Transferase 21 U/L (5-31); Bilirubin Total 0.7 mg/dL (0.0-1.0); Blood Urea Nitrogen 39 mg/dL (9-16); Calcium 9.8 mg/dL (8.4-10.2); Carbon Dioxide 21 mmol/L (22-29); Chloride 107 mmol/L (96-108); Creatinine Clr Calc Pharmacy 23.2; Estimated Glomerular Filt Rate 26; Glucose Random 130 mg/dL (60-115); Sodium 140 mmol/L (135-145); Total Protein 6.4 g/dL (6.5-8.0)
[2024-08-28] MEDS: Albuterol/Iprat 2.5/0.5MG 3 ML AMPUL.NEB INHALE ×3 (08:07→19:43)
[2024-08-28] MEDS: Brimonidine Tartrate 0.2% Oph 5 ML BOTTLE 1 DROP EYE-BOTH ×3 (09:01→20:38)
[2024-08-28] MEDS: 0.9 % Sodium Chloride Flush 3 ML SYRINGE IVFLUSH ×3 (09:01→20:39)
[2024-08-28] MEDS: Aspirin Enteric Coated 81 MG TABLET.DR PO (09:01)
[2024-08-28] MEDS: Apixaban 5 MG TABLET PO (09:01)
--- NOTE | 2024-08-28 09:24 | MHC.CM.PN ---
IMM 08/28/23, Pt lives with her dtr, HCP is on file and confirmed: ryanne Gianna and Booker, PCP confirmd: Dr. Rizvi. Pt. has home care services from [facility] for home making. For DME, she uses a walker. Family can transport home at DC. DCP: home with services. CM to follow and assist with DC plan.
--- NOTE | 2024-08-28 09:59 | PM.CNCAR ---
History of Present Illness History of Present Illness Date of Service: 08/28/24 Chief complaint: Acute CHF Narrative: This is a cardiology consultation regarding atrial fibrillation and question of congestive heart failure. Has seen in the past but not recently. 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 However, unknown coronary anatomy. Currently admitted for shortness of breath. She also seems to have leg swelling. In this context, diagnosed to have atrial fibrillation rapid ventricular response. She was put on Cardizem drip but currently stopped as the rates got better. Patient herself denies any anginal-type symptoms. Before this admission, she denies any active symptoms but suspect she might have had some shortness of breath as she is a chronic smoker. Review of Systems Review of Systems: Yes all other systems are reviewed and are negative Constitutional: Constitutional: Reports as per HPI and Reports no additional constitutional complaints Eyes: Eyes: Reports as per HPI and Denies no additional eye complaints ENT: Denies system reviewed and no additional complaints, except as documented and Reports as per HPI Cardiovascular: Cardiovascular: Reports as per HPI, Reports no additional cardiovascular complaints, Denies acrocyanosis, Denies cool extremities, Denies chest pain, Reports leg edema, Denies lightheadedness, Denies palpitations and Reports dyspnea Respiratory: Respiratory: Reports as per HPI, Denies no additional respiratory complaints and Reports dyspnea Gastrointestinal: Gastrointestinal: Reports as per HPI and Denies no additional gastrointestinal complaints Genitourinary: Genitourinary: Reports as per HPI Musculoskeletal: Musculoskeletal: Reports no additional musculoskeletal complaints and Reports as per HPI Integumentary/Breasts: Skin/Breast: Reports system reviewed and no additional complaints, except as docu Neurologic: Reports system reviewed and no additional complaints, except as documented and Reports as per HPI Psychiatric: Psychiatric: Reports no additional psychiatric complaints and Reports as per HPI Endocrine: Endocrine: Reports no additional endocrine complaints, Reports as per HPI and Denies palpitations Hematologic/Lymphatic: Hematologic/Lymphatic: Reports no additional hematologic/lymphatic complaints and Reports as per HPI Allergic/Immunologic: Allergic/Immunologic: Reports no additional allergic/immunologic complaints and Reports as per HPI [facility] Past Medical History Medical History Macular degeneration Overweight (BMI 25.0-29.9) COVID-19 vaccine administered History of COVID-19 Restrictive lung disease Edema Current smoker Iron deficiency anemia Tobacco abuse Carotid bruit Obesity (BMI 30-39.9) Depression Insomnia Allergic rhinitis Elevated TSH GERD without esophagitis Impaired fasting glucose Anemia Knee osteoarthritis Vitamin D deficiency Chronic kidney disease (CKD), stage III (moderate) Pure hypercholesterolemia Benign essential hypertension Coronary artery disease Family History Family History Father Medical history unknown Mother CVD (cardiovascular disease) Surgical History Surgical History Hx of total knee arthroplasty Hx of colonoscopy Hx of cardiac cath Hx of bilateral cataract extraction History of hysterectomy Social History Social History Household Members: Family Household Members Other:: daughter and grandson live with patient. Housing: House Are you a primary health care analyst to a significant other at home: No Do you presently have visiting nurse or other home services: Yes (elder care) Unable to assess alcohol history related to: Unknown Alcohol intake: never Comment: aware of trip hazard Patient Tobacco Use Status: Current everyday Tobacco user Tobacco use type: Cigarette Cigarette Packs Per Day: 1 Cigarettes Per Day: 20.0 Years Smoked: 70 Smoked in Last 30 Days: Yes e-Cigarette/Vaping Use: Never Used Patient Interested in Nicotine Replacement: Yes Second Hand Smoke Exposure: Yes Use of substances other than those prescribed or required for medical reasons: No Currently Displaying Signs/Symptoms of Drug Intoxication Withdrawal: No Have you been hit, kicked, punched, or otherwise hurt by someone within the past year? If so, by whom?: No Do you feel safe in your current relationship?: No Is there a partner from a previous relationship who is making you feel unsafe now?: No Are you made to feel afraid or neglected: No Advance Directives: No Advance Directives Information Provided: Yes Do you have a plan to hurt others: No Plan Recently lost weight without trying: No Eating poorly because of decreased appetite: No Patient : No : No Poor oral hygiene: No service: No Current occupational status: retired and disabled Cognitive needs: No (cane/walker) Hearing needs: No Vision needs: No Meds Allergies Allergy/AdvReac Type Severity Reaction Status Date / Time atorvastatin AdvReac Intermediate myalgias Verified 08/27/24 12:09 Active Medications: Current Medications Acetaminophen (Acetaminophen 325 Mg Tablet) 650 mg PO Q6H PRN PRN Reason: Pain, Mild 1-3,fever,headache Albuterol Sulfate (Albuterol Sulfate (0.083%) 2.5 Mg/3 Ml Vial.Neb) 2.5 mg INHALE Q2H PRN PRN Reason: Shortness of Breath/Wheezing Last Admin: 08/27/24 23:05 Dose: 2.5 mg Albuterol/Ipratropium (Albuterol/Iprat 2.5/0.5mg 3 Ml Ampul.Neb) 3 ml INHALE RQ4H WHILE AWAKE [facility] Last Admin: 08/28/24 08:07 Dose: 3 ml Apixaban (Apixaban 5 Mg Tablet) 5 mg PO BID [facility] Last Admin: 08/28/24 09:01 Dose: 5 mg Aspirin (Aspirin Enteric Coated 81 Mg Tablet.) 81 mg PO DAILY [facility] Last Admin: 08/28/24 09:01 Dose: 81 mg Brimonidine Tartrate (Brimonidine Tartrate 0.2% Oph 5 Ml Bottle) 1 drop EYE-BOTH TID [facility] Last Admin: 08/28/24 09:01 Dose: 1 drop Calcium Carbonate (Calcium Carbonate 750 Mg Tab.Chew) 750 mg PO Q4H PRN PRN Reason: Heartburn Ceftriaxone Sodium (Ceftriaxone Sodium 1 Gm Vial) 1 gm IVPUSH Q24H [facility] Furosemide (Furosemide 40 Mg/4 Ml Vial) 40 mg IVPUSH BID@0900,1800 [facility]; Protocol Last Admin: 08/28/24 05:45 Dose: 40 mg Gabapentin (Gabapentin 100 Mg Capsule) 100 mg PO BID PRN PRN Reason: Pain, Moderate(Pain Scale 4-6) Diltiazem HCl 125 mg/ Sodium (Chloride) 125 mls @ 0 mls/hr IVCONT .Q0M [facility]; Protocol Last Titration: 08/28/24 02:01 Dose: 0 mg/hr, 0 mls/hr Azithromycin 500 mg/ Sodium (Chloride) 250 mls @ 125 mls/hr IV Q24H [facility] Stop: 08/31/24 17:59 Last Infusion: 08/27/24 18:30 Dose: Infused Magnesium Hydroxide (Milk Of Magnesia 30 Ml Oral.Susp) 30 ml PO DAILY PRN PRN Reason: Constipation Melatonin (Melatonin 3 Mg Tablet) 6 mg PO BEDTIME PRN PRN Reason: Insomnia Omeprazole (Omeprazole 20 Mg Capsule.Dr) 20 mg PO DAILY@0630,1630 PRN PRN Reason: heartburns Sodium Chloride (0.9 % Sodium Chloride Flush 3 Ml Syringe) 3 ml IVFLUSH QSHIFT TIARA Last Admin: 08/28/24 09:01 Dose: 3 ml Home Medications ?Medication ?Instructions ?Recorded ?Confirmed ?Last Taken ?Type brimonidine 0.2 % eye drops 1 drp ophthalmic (eye) TID macular 04/17/23 08/27/24 Unknown History degeneration omeprazole 20 mg capsule,delayed 20 mg PO DAILY@0630,1630 PRN 05/18/24 08/27/24 Unknown History release heartburns aspirin 81 mg capsule 81 mg PO DAILY 07/30/24 08/27/24 Unknown History amlodipine 10 mg tablet 10 mg PO DAILY 08/27/24 08/27/24 Unknown History fesoterodine 4 mg tablet,extended 4 mg PO DAILY PRN Overactive 08/27/24 08/27/24 Unknown History release 24 hr Bladder gabapentin 100 mg capsule 100 mg PO BID PRN Pain 08/27/24 08/27/24 Unknown History rosuvastatin 20 mg tablet 20 mg PO BEDTIME 08/27/24 08/27/24 Unknown History Physical Exam Vital Signs: Vital Signs: Last Vital Signs Temp 97.4 F 08/28/24 07:07 Pulse 89 08/28/24 08:10 Resp 20 08/28/24 08:10 BP 125/73 08/28/24 07:07 Pulse Ox 93 08/28/24 07:07 O2 Del Method CPAP 08/28/24 07:07 O2 Flow Rate 5 08/28/24 05:30 FiO2 40 08/27/24 16:38 Oxygen Flow Rate 5 08/27/24 19:33 BMI result Body Mass Index 33.3 Const: General: comfortable and no acute distress Orientation/consciousness: patient oriented x3 HEENT: Other: Unremarkable Head: Yes normal to inspection Neck: Neck: Yes normal visual inspection Chest: Chest palpation & inspection: normal inspection of the chest Resp: Auscultation: wheezes and diminished lung sounds Cardio: Palpation: normal PMI Heart sounds: S1 normal heart sound present, S2 normal heart sound present, no gallops, no murmurs and no rubs GI: Palpation (GI): Soft to palpation Back/Spine/Pelvis: Other: unremarkable Skin: General skin exam: no rashes or lesions noted Neuro: General: patient oriented x3 Extrem: General: Yes edema Psych: Mental Status: mental status grossly normal Objective Labs and Meds 08/28/24 06:44 08/28/24 06:44 Lab results: Laboratory Results - last 24 hr 08/27/24 08/27/24 08/27/24 13:23 13:24 13:35 WBC 12.5 H RBC 4.58 Hgb 10.8 L Hct 37.4 MCV 81.7 MCH 23.6 L MCHC 28.9 L RDW 17.2 H Plt Count 260 MPV 11.0 Immature Gran % (Auto) 0.5 H Neut % (Auto) 92.8 H Lymph % (Auto) 4.2 L [place] % (Auto) 2.1 Eos % (Auto) 0.1 Baso % (Auto) 0.3 Lymph # (Auto) 0.5 L [place] # (Auto) 0.3 Eos # (Auto) 0.0 Baso # (Auto) 0.0 Abs Immat Gran (auto) 0.06 H Absolute Neuts (auto) 11.6 H Absolute Nucleated RBC 0.000 Nucleated RBC % (auto) 0.0 Smear Tech's Comments VERIFIED PT 13.2 H INR 1.1 APTT 29.4 VBG pH 7.32 VBG pCO2 47 VBG pO2 40 VBG HCO3 24 VBG O2 Saturation 61.0 VBG Base Excess -1.6 Sodium 140 Potassium 5.2 H Chloride 106 Carbon Dioxide 23 Anion Gap 16 BUN 30 H Creatinine 1.34 Estim Creat Clear Calc 32.6 Estimated GFR 37 Random Glucose 137 H Lactic Acid 1.3 Calcium 10.1 Magnesium 2.3 Total Bilirubin 1.1 H AST 26 ALT 17 Alkaline Phosphatase 129 H Troponin I High Sens 58.7 H* D B-Natriuretic Peptide 548 H Total Protein 7.5 Albumin 3.9 Urine Color Urine Appearance Urine pH Ur Specific [place] Urine Protein Urine Glucose (UA) Urine Ketones Urine Blood Urine Nitrite Ur Leukocyte Esterase Urine RBC Urine WBC Ur Squamous Epith Cells Urine Bacteria Hyaline Casts Influenza Type A (PCR) NEGATIVE Influenza Type B (PCR) NEGATIVE RSV RNA Qual (PCR) NEGATIVE SARS-CoV-2 RNA (RT-PCR) NEGATIVE 08/27/24 08/27/24 08/28/24 16:04 20:02 06:44 WBC 8.4 RBC 4.13 L Hgb 9.8 L Hct 33.0 L MCV 79.9 L MCH 23.7 L MCHC 29.7 L RDW 17.2 H Plt Count 228 MPV 9.9 Immature Gran % (Auto) 0.7 H Neut % (Auto) 87.7 H Lymph % (Auto) 7.7 L [place] % (Auto) 3.9 Eos % (Auto) 0.0 Baso % (Auto) 0.0 Lymph # (Auto) 0.7 L [place] # (Auto) 0.3 Eos # (Auto) 0.0 Baso # (Auto) 0.0 Abs Immat Gran (auto) 0.06 H Absolute Neuts (auto) 7.4 Absolute Nucleated RBC 0.000 Nucleated RBC % (auto) 0.0 Smear Tech's Comments PT INR APTT VBG pH VBG pCO2 VBG pO2 VBG HCO3 VBG O2 Saturation VBG Base Excess Sodium 140 Potassium 5.0 Chloride 107 Carbon Dioxide 21 L Anion Gap 17 BUN 39 H Creatinine 1.86 H Estim Creat Clear Calc 23.2 Estimated GFR 26 Random Glucose 130 H Lactic Acid Calcium 9.8 Magnesium Total Bilirubin 0.7 AST 21 ALT 15 Alkaline Phosphatase 112 Troponin I High Sens 57.7 H* B-Natriuretic Peptide Total Protein 6.4 L Albumin 3.4 L Urine Color Yellow Urine Appearance Clear Urine pH 5.5 Ur Specific [place] 1.015 Urine Protein 300 (3+) H Urine Glucose (UA) Negative Urine Ketones Negative Urine Blood Negative Urine Nitrite Negative Ur Leukocyte Esterase Negative Urine RBC 0-2 Urine WBC 0-5 Ur Squamous Epith Cells 0-2 Urine Bacteria None Seen Hyaline Casts 3-5 Influenza Type A (PCR) Influenza Type B (PCR) RSV RNA Qual (PCR) SARS-CoV-2 RNA (RT-PCR) 08/28/24 06:47 WBC RBC Hgb Hct MCV MCH MCHC RDW Plt Count MPV Immature Gran % (Auto) Neut % (Auto) Lymph % (Auto) [place]irt % (Auto) Eos % (Auto) Baso % (Auto) Lymph # (Auto) [place]irt # (Auto) Eos # (Auto) Baso # (Auto) Abs Immat Gran (auto) Absolute Neuts (auto) Absolute Nucleated RBC Nucleated RBC % (auto) Smear Tech's Comments PT INR APTT VBG pH 7.36 VBG pCO2 39 VBG pO2 57 VBG HCO3 22 VBG O2 Saturation 83.0 VBG Base Excess -2.1 Sodium Potassium Chloride Carbon Dioxide Anion Gap BUN Creatinine Estim Creat Clear Calc Estimated GFR Random Glucose Lactic Acid Calcium Magnesium Total Bilirubin AST ALT Alkaline Phosphatase Troponin I High Sens B-Natriuretic Peptide Total Protein Albumin Urine Color Urine Appearance Urine pH Ur Specific [place] Urine Protein Urine Glucose (UA) Urine Ketones Urine Blood Urine Nitrite Ur Leukocyte Esterase Urine RBC Urine WBC Ur Squamous Epith Cells Urine Bacteria Hyaline Casts Influenza Type A (PCR) Influenza Type B (PCR) RSV RNA Qual (PCR) SARS-CoV-2 RNA (RT-PCR) ECG Interpretation: EKG with atrial fibrillation at a rate of 132/Min. Could also be flutter. Currently, rate is around 90/Min. Imaging Radiologist's impression: Impressions Chest X-Ray 08/27/24 12:36 IMPRESSION: 1. Suspect interstitial pulmonary edema with Kailash B lines in the lung bases. 2. Left effusion suspected. 3. Patchy airspace opacity abutting the right heart border and in the retrocardiac region could represent pneumonia or regions of alveolar edema. Electronically signed by: Tong Manuel MD 08/27/2024 12:55 PM [facility] Assessment and Plan (1) Acute congestive heart failure: Status: Acute (2) Atrial fibrillation with RVR: Status: Acute (3) COPD exacerbation: Status: Acute Plan Suspect some combination of cardiac/pulmonary issues. Congestive heart failure, COPD exacerbation as well as atrial fibrillation rapid rate. IV diuretics. Oral diltiazem for rate control. Eliquis, if creatinine stays high, then need to decrease dose to 2.5mg bid. May stop Aspirin. Treatment of COPD appropriately. Obtain echocardiogram. We will follow up with you. With age and comorbidities and frailty, guarded prognosis. Procedures Date of Service Date of Service: 08/28/24
--- NOTE | 2024-08-28 13:07 | P.PNIM_ITS ---
Subjective Subjective Date of Service: 08/28/24 Interval History: Improved overnight with Lasix. Off CPAP. Ventricular response rate well controlled Review of Systems Denies chest pain Admits shortness of breath with minimal exertion Denies nausea vomiting diarrhea Denies fever chills Physical Exam 2 Vital Signs: Vital Signs: Last Vital Signs Temp 97.9 F 08/28/24 11:05 Pulse 105 H 08/28/24 11:28 Resp 18 08/28/24 11:28 BP 123/65 08/28/24 11:05 Pulse Ox 92 08/28/24 11:05 O2 Del Method Oxymask 08/28/24 11:05 O2 Flow Rate 5 08/28/24 11:05 FiO2 40 08/27/24 16:38 Oxygen Flow Rate 5 08/27/24 19:33 BMI result Body Mass Index 33.3 Const: Other: Awake alert able to speak in short sentences Resp: Other: Diminished throughout with bilateral basilar crackles Cardio: Other: No S4; positive S1-S2; no S3 murmurs rubs or gallops. Irregularly irregular GI: Other: Soft nontender nondistended normoactive bowel sounds Extrem: Other: No edema bilaterally Objective Data Active Medications Acetaminophen (Acetaminophen 325 Mg Tablet) 650 mg PO Q6H PRN PRN Reason: Pain, Mild 1-3,fever,headache Albuterol Sulfate (Albuterol Sulfate (0.083%) 2.5 Mg/3 Ml Vial.Neb) 2.5 mg INHALE Q2H PRN PRN Reason: Shortness of Breath/Wheezing Last Admin: 08/27/24 23:05 Dose: 2.5 mg Documented By: JUSTO Albuterol/Ipratropium (Albuterol/Iprat 2.5/0.5mg 3 Ml Ampul.Neb) 3 ml INHALE RQ4H WHILE AWAKE [facility] Last Admin: 08/28/24 11:25 Dose: 3 ml Documented By: DONA Apixaban (Apixaban 2.5 Mg Tablet) 2.5 mg PO BID [facility] Aspirin (Aspirin Enteric Coated 81 Mg Tablet.) 81 mg PO DAILY [facility] Last Admin: 08/28/24 09:01 Dose: 81 mg Documented By: JONAS Brimonidine Tartrate (Brimonidine Tartrate 0.2% Oph 5 Ml Bottle) 1 drop EYE- BOTH TID [facility] Last Admin: 08/28/24 09:01 Dose: 1 drop Documented By: JONAS Calcium Carbonate (Calcium Carbonate 750 Mg Tab.Chew) 750 mg PO Q4H PRN PRN Reason: Heartburn Ceftriaxone Sodium (Ceftriaxone Sodium 1 Gm Vial) 1 gm IVPUSH Q24H [facility] Diltiazem HCl (Diltiazem Hcl 30 Mg Tablet) 30 mg PO QID [facility]; Protocol Furosemide (Furosemide 40 Mg/4 Ml Vial) 40 mg IVPUSH BID@0900,1800 [facility]; Protocol Last Admin: 08/28/24 05:45 Dose: 40 mg Documented By: KULWINDER Comments: Given now per Sen Castorena communication Gabapentin (Gabapentin 100 Mg Capsule) 100 mg PO BID PRN PRN Reason: Pain, Moderate(Pain Scale 4-6) Azithromycin 500 mg/ Sodium (Chloride) 250 mls @ 125 mls/hr IV Q24H [facility] Stop: 08/31/24 17:59 Last Infusion: 08/27/24 18:30 Dose: Infused Documented By: BRYANNA Magnesium Hydroxide (Milk Of Magnesia 30 Ml Oral.Susp) 30 ml PO DAILY PRN PRN Reason: Constipation Melatonin (Melatonin 3 Mg Tablet) 6 mg PO BEDTIME PRN PRN Reason: Insomnia Omeprazole (Omeprazole 20 Mg Capsule.Dr) 20 mg PO DAILY@0630,1630 PRN PRN Reason: heartburns Sodium Chloride (0.9 % Sodium Chloride Flush 3 Ml Syringe) [facility] Last Admin: 08/28/24 09:01 Dose: 3 ml Documented By: JONAS Labs 08/28/24 06:44 08/28/24 06:44 Labs: Laboratory Results - last 24 hr 08/27/24 08/27/24 08/27/24 13:23 13:24 13:35 MCV 81.7 MCH 23.6 L MCHC 28.9 L RDW 17.2 H Plt Count 260 MPV 11.0 Immature Gran % (Auto) 0.5 H Neut % (Auto) 92.8 H Lymph % (Auto) 4.2 L [place] % (Auto) 2.1 Eos % (Auto) 0.1 Baso % (Auto) 0.3 Lymph # (Auto) 0.5 L [place] # (Auto) 0.3 Eos # (Auto) 0.0 Baso # (Auto) 0.0 Abs Immat Gran (auto) 0.06 H Absolute Neuts (auto) 11.6 H Absolute Nucleated RBC 0.000 Nucleated RBC % (auto) 0.0 Smear Tech's Comments VERIFIED PT 13.2 H INR 1.1 APTT 29.4 VBG pH 7.32 VBG pCO2 47 VBG pO2 40 VBG HCO3 24 VBG O2 Saturation 61.0 VBG Base Excess -1.6 Anion Gap 16 Estim Creat Clear Calc 32.6 Estimated GFR 37 Random Glucose 137 H Lactic Acid 1.3 Calcium 10.1 Magnesium 2.3 Total Bilirubin 1.1 H AST 26 ALT 17 Alkaline Phosphatase 129 H Troponin I High Sens 58.7 H* D B-Natriuretic Peptide 548 H Total Protein 7.5 Albumin 3.9 Urine Color Urine Appearance Urine pH Ur Specific [place] Urine Protein Urine Glucose (UA) Urine Ketones Urine Blood Urine Nitrite Ur Leukocyte Esterase Urine RBC Urine WBC Ur Squamous Epith Cells Urine Bacteria Hyaline Casts Influenza Type A (PCR) NEGATIVE Influenza Type B (PCR) NEGATIVE RSV RNA Qual (PCR) NEGATIVE SARS-CoV-2 RNA (RT-PCR) NEGATIVE 08/27/24 08/27/24 08/28/24 16:04 20:02 06:44 MCV 79.9 L MCH 23.7 L MCHC 29.7 L RDW 17.2 H Plt Count 228 MPV 9.9 Immature Gran % (Auto) 0.7 H Neut % (Auto) 87.7 H Lymph % (Auto) 7.7 L [place] % (Auto) 3.9 Eos % (Auto) 0.0 Baso % (Auto) 0.0 Lymph # (Auto) 0.7 L [place] # (Auto) 0.3 Eos # (Auto) 0.0 Baso # (Auto) 0.0 Abs Immat Gran (auto) 0.06 H Absolute Neuts (auto) 7.4 Absolute Nucleated RBC 0.000 Nucleated RBC % (auto) 0.0 Smear Tech's Comments PT INR APTT VBG pH VBG pCO2 VBG pO2 VBG HCO3 VBG O2 Saturation VBG Base Excess Anion Gap 17 Estim Creat Clear Calc 23.2 Estimated GFR 26 Random Glucose 130 H Lactic Acid Calcium 9.8 Magnesium Total Bilirubin 0.7 AST 21 ALT 15 Alkaline Phosphatase 112 Troponin I High Sens 57.7 H* B-Natriuretic Peptide Total Protein 6.4 L Albumin 3.4 L Urine Color Yellow Urine Appearance Clear Urine pH 5.5 Ur Specific [place] 1.015 Urine Protein 300 (3+) H Urine Glucose (UA) Negative Urine Ketones Negative Urine Blood Negative Urine Nitrite Negative Ur Leukocyte Esterase Negative Urine RBC 0-2 Urine WBC 0-5 Ur Squamous Epith Cells 0-2 Urine Bacteria None Seen Hyaline Casts 3-5 Influenza Type A (PCR) Influenza Type B (PCR) RSV RNA Qual (PCR) SARS-CoV-2 RNA (RT-PCR) 08/28/24 06:47 MCV MCH MCHC RDW Plt Count MPV Immature Gran % (Auto) Neut % (Auto) Lymph % (Auto) [place] % (Auto) Eos % (Auto) Baso % (Auto) Lymph # (Auto) [place] # (Auto) Eos # (Auto) Baso # (Auto) Abs Immat Gran (auto) Absolute Neuts (auto) Absolute Nucleated RBC Nucleated RBC % (auto) Smear Tech's Comments PT INR APTT VBG pH 7.36 VBG pCO2 39 VBG pO2 57 VBG HCO3 22 VBG O2 Saturation 83.0 VBG Base Excess -2.1 Anion Gap Estim Creat Clear Calc Estimated GFR Random Glucose Lactic Acid Calcium Magnesium Total Bilirubin AST ALT Alkaline Phosphatase Troponin I High Sens B-Natriuretic Peptide Total Protein Albumin Urine Color Urine Appearance Urine pH Ur Specific [place] Urine Protein Urine Glucose (UA) Urine Ketones Urine Blood Urine Nitrite Ur Leukocyte Esterase Urine RBC Urine WBC Ur Squamous Epith Cells Urine Bacteria Hyaline Casts Influenza Type A (PCR) Influenza Type B (PCR) RSV RNA Qual (PCR) SARS-CoV-2 RNA (RT-PCR) Assessment and Plan (1) Atrial fibrillation with RVR: Status: Acute (2) Acute congestive heart failure: Status: Acute Plan 80-year-old female with a history of tobacco abuse (1 pack a day) hypertension and coronary artery disease presents to the emergency room today with worsening shortness of breath over the last week with sputum production; monitor demonstrates AFib with RVR. Given Lasix/Cardizem/magnesium in ER 1. AFib with RVR -d/c diltiazem drip -Cardizem 30 mg q.6 hours p.o. -decreased Eliquis 2.5 mg b.i.d. given renal function change -2D echo completed 2. Acute CHF -off CPAP; now on oxygen mask -Lasix 40 mg IV b.i.d. -titrate O2 as tolerated 3. Hypertension -acceptable control on outpatient therapies -adjust as indicated 4. COPD exacerbation in backdrop of community-acquired pneumonia -ceftriaxone/azithromycin (2) -given wheezing will add pulse dose steroids 40 mg q.12 -Xopenex nebs as needed -titrate O2 to maintain sats greater than equal to 90% Full code Eliquis Require ongoing hospitalization to treat acute CHF with IV Lasix and specialty consultation Quality Stroke Does the patient have a stroke diagnosis?: No VTE Prior VTE?: No VTE Risk Level:: Medical - moderate - high VTE Device Contraindication: Treatment Not Indicated VTE Drug Contraindication: N/A - Med Ordered
[2024-08-28] MEDS: methylPREDNISolone Sod Succ 40 MG/ML VIAL IVPUSH (14:01)
[2024-08-28] MEDS: cefTRIAXone sodium 1 GM VIAL IVPUSH (14:02)
[2024-08-28] MEDS: dilTIAZem HCL 30 MG TABLET PO ×3 (14:02→20:38)
[2024-08-28] MEDS: Azithromycin 500 MG in 0.9 % Sodium Chloride 250 ML 125 MG IV (15:43)
--- NOTE | 2024-08-28 16:56 | P.CDIM_ITS ---
PROVIDER RESPONSE TEXT: To clarify, the appropriate diagnosis supported by the clinical indicators: Other (explain): New Afib per pt. QUERY TEXT: PHYSICIAN'S DOCUMENTATION REQUEST Date of Query: 08/28/2024 12:05 PM EST Patient Name: Jaki Kulkarni Admit Date: 08/27/2024 Dear Mihai Reynolds DO, A review of the medical record indicates additional documentation may be needed. Please review below and update the documentation accordingly. Clinical Indicators: Atrial fibrillation with RVR - additional diltiazem bolus follow by drip. Oral diltiazem for rate control. Hx of cardiac cath If possible, please provide further specificity regarding atrial fibrillation, such as: Paroxysmal atrial fibrillation Persistent atrial fibrillation Long lasting persistent atrial fibrillation Chronic or Permanent atrial fibrillation Other (explain) Clinically unable to determine (explain) Thank you, Lana Kimbrough, CCS, CDIS Use of terms such as suspected, likely, concern for, or probable (associated with a specific diagnosi s that is being evaluated, monitored, or treated as if it exists) are acceptable and can be coded in the inpatient se tting, when documented at the time of discharge. Please use your independent medical judgment in providing your response. THIS QUERY IS PART OF THE PERMANENT MEDICAL RECORD
[2024-08-28] MEDS: Apixaban 2.5 MG TABLET PO (20:38)
[2024-08-29] VITALS (10 sets, daily range): BP systolic 126–154; BP diastolic 62–90; PULSE 82–114; RESP 16–22; TEMP 36.3–36.6; O2SAT 90–96
[2024-08-29] MEDS: methylPREDNISolone Sod Succ 40 MG/ML VIAL IVPUSH ×2 (02:35→14:26)
[2024-08-29 06:17] LABS: Basophils Percent Auto 0.1 % (0-2); Hematocrit 36.5 % (37.0-47.0); Hemoglobin 10.4 g/dl (12.0-16.0); Imm Gran Abs Auto 0.11 X10*3/uL (0.00-0.03); Imm Gran Pct Auto 0.6 % (0.0-0.4); Lymphocytes Absolute Auto 0.8 X10*3/uL (1.2-4.9); Lymphocytes Percent Auto 4.5 % (20-40); MANUAL DIFF FLAG SCAN; Mean Corpuscular HGB Conc 28.5 g/dl (31.0-35.0); Mean Corpuscular Hemoglobin 23.4 pg (27.0-33.0); Mean Platelet Volume 10.6 fL (9.4-12.3); Monocytes Absolute Auto 0.5 X10*3/uL (0.1-1.2); Monocytes Percent Auto 3.1 % (2-11); NRBC Pct Auto 0.2 /100WBC (0.0-0.2); Neutrophils Absolute Auto 15.5 x10*3/uL (2.0-8.3); Neutrophils Percent Auto 91.7 % (45-73); Platelet Count 328 X10*3/uL (160-400); Red Blood Count 4.45 X10*6/uL (4.20-5.50); Red Cell Distribution Width 17.1 % (11.0-16.0); SCAN SMEAR FLAG 1
[2024-08-29 06:32] LABS: Alanine Aminotransferase 22 U/L (0-31); Albumin Level 3.6 g/dL (3.5-5.0); Alkaline Phosphatase 105 U/L (39-117); Anion Gap 17 (12-20); Aspartate Amino Transferase 23 U/L (5-31); Bilirubin Total 0.4 mg/dL (0.0-1.0); Blood Urea Nitrogen 55 mg/dL (9-16); Calcium 9.3 mg/dL (8.4-10.2); Carbon Dioxide 22 mmol/L (22-29); Chloride 104 mmol/L (96-108); Creatinine Clr Calc Pharmacy 17.9; Estimated Glomerular Filt Rate 19; Glucose Fasting 147 mg/dL (60-99); Potassium 5.5 mmol/L (3.3-5.1); Sodium 137 mmol/L (135-145); Total Protein 6.8 g/dL (6.5-8.0)
[2024-08-29 06:37] LABS: SLIDE REVIEW VERIFIED
[2024-08-29] MEDS: dilTIAZem HCL 30 MG TABLET PO (07:42)
[2024-08-29] MEDS: Brimonidine Tartrate 0.2% Oph 5 ML BOTTLE 1 DROP EYE-BOTH ×3 (07:43→20:44)
[2024-08-29] MEDS: 0.9 % Sodium Chloride Flush 3 ML SYRINGE IVFLUSH ×3 (07:43→20:44)
[2024-08-29] MEDS: Furosemide 40 MG/4 ML VIAL IVPUSH (07:43)
[2024-08-29] MEDS: Apixaban 2.5 MG TABLET PO ×2 (07:43→20:44)
[2024-08-29] MEDS: Albuterol/Iprat 2.5/0.5MG 3 ML AMPUL.NEB INHALE ×2 (08:07→11:36)
[2024-08-29] MEDS: Sodium Zirconium Cyclosilicate 10 GM POWD.PACK PO (09:14)
[2024-08-29 09:36] LABS: Procalcitonin 0.08 ng/mL
--- NOTE | 2024-08-29 10:18 | P.PNCA_ITS ---
Subjective Subjective Date of Service: 08/29/24 Interval history: Still appears short of breath but she is insisting on getting discharged. Does not appear to have much insight. Review of Systems Review of Systems Denies chest pain Admits shortness of breath with minimal exertion Denies nausea vomiting diarrhea Denies fever chills Yes all other systems are reviewed and are negative Constitutional: Reports as per HPI and Reports no additional constitutional complaints Eyes: Reports as per HPI and Denies no additional eye complaints Denies system reviewed and no additional complaints, except as documented and Reports as per HPI Cardiovascular: Reports as per HPI, Reports no additional cardiovascular complaints, Denies acrocyanosis, Denies cool extremities, Denies chest pain, Denies leg edema, Denies lightheadedness, Denies palpitations and Reports dyspnea Respiratory: Reports as per HPI, Denies no additional respiratory complaints and Reports dyspnea Gastrointestinal: Reports as per HPI and Denies no additional gastrointestinal complaints Genitourinary: Reports as per HPI Musculoskeletal: Reports no additional musculoskeletal complaints and Reports as per HPI Skin/Breast: Reports system reviewed and no additional complaints, except as docu Reports system reviewed and no additional complaints, except as documented and Reports as per HPI Psychiatric: Reports no additional psychiatric complaints and Reports as per HPI Endocrine: Reports no additional endocrine complaints, Reports as per HPI and Denies palpitations Hematologic/Lymphatic: Reports no additional hematologic/lymphatic complaints and Reports as per HPI Allergic/Immunologic: Reports no additional allergic/immunologic complaints and Reports as per HPI Physical Exam Vital Signs: Last Vital Signs Temp 97.5 F 08/29/24 07:18 Pulse 112 H 08/29/24 08:08 Resp 18 08/29/24 08:08 BP 143/71 H 08/29/24 07:18 Pulse Ox 92 08/29/24 07:18 O2 Del Method Oxymask 08/29/24 07:18 O2 Flow Rate 5 08/29/24 07:18 FiO2 40 08/27/24 16:38 Oxygen Flow Rate 5 08/27/24 19:33 BMI result Body Mass Index 33.3 Const General: comfortable and no acute distress Orientation/consciousness: patient oriented x3 HEENT Other: Unremarkable Head: Yes normal to inspection Neck Neck: Yes normal visual inspection Chest Chest palpation & inspection: normal inspection of the chest Resp Auscultation: wheezes and diminished lung sounds Cardio Palpation: normal PMI Heart sounds: S1 normal heart sound present, S2 normal heart sound present, no gallops, no murmurs and no rubs GI Palpation (GI): Soft to palpation Back/Spine/Pelvis Other: unremarkable Skin General skin exam: no rashes or lesions noted Neuro General: patient oriented x3 Extrem General: Yes edema Psych Mental Status: mental status grossly normal Objective Labs and Meds 08/29/24 05:52 08/29/24 05:52 Lab results: Laboratory Results - last 24 hr 08/29/24 05:52 WBC 17.0 H RBC 4.45 Hgb 10.4 L Hct 36.5 L MCV 82.0 MCH 23.4 L MCHC 28.5 L RDW 17.1 H Plt Count 328 D MPV 10.6 Immature Gran % (Auto) 0.6 H Neut % (Auto) 91.7 H Lymph % (Auto) 4.5 L [place] % (Auto) 3.1 Eos % (Auto) 0.0 Baso % (Auto) 0.1 Lymph # (Auto) 0.8 L [place] # (Auto) 0.5 Eos # (Auto) 0.0 Baso # (Auto) 0.0 Abs Immat Gran (auto) 0.11 H Absolute Neuts (auto) 15.5 H Absolute Nucleated RBC 0.030 H Nucleated RBC % (auto) 0.2 Smear Tech's Comments VERIFIED Sodium 137 Potassium 5.5 H Chloride 104 Carbon Dioxide 22 Anion Gap 17 BUN 55 H Creatinine 2.41 H Estim Creat Clear Calc 17.9 Estimated GFR 19 Fasting Glucose 147 H Calcium 9.3 Total Bilirubin 0.4 AST 23 ALT 22 Alkaline Phosphatase 105 Total Protein 6.8 Albumin 3.6 Procalcitonin 0.08 Progress Note: A&P Assessment and plan (1) Acute congestive heart failure: Status: Acute (2) Atrial fibrillation with RVR: Status: Acute (3) COPD exacerbation: Status: Acute Plan Pertinent data reviewed. Echocardiogram showed diminished LVEF, suspect about 40%. There is moderate to severe tricuspid regurgitation with pulmonary hypertension. With regard to the labs, the kidney function is going up. BUN/creatinine is higher. With regard to the atrial fibrillation itself, go up on the diltiazem as there is not much of a choice. We will not be able to used digoxin with renal insufficiency. She is to wheezy for beta-blockers. Continue Eliquis. As the kidney function is going up, hold off on diuretics for now. Appropriate treatment of COPD. Because of her age, comorbidities, multiorgan dysfunction, frailty, guarded prognosis. Goals of care will need to be discussed. Discussed with Time Spent With Patient Time: Total time managing care of this patient today ____ minutes. Progress Note: Quality Stroke Does the patient have a stroke diagnosis?: No Procedures Date of Service Date of Service: 08/29/24
[2024-08-29] MEDS: dilTIAZem HCL 125 MG in 0.9 % Sodium Chloride 100 ML 10 MG IVCONT ×2 (11:05→21:55)
--- NOTE | 2024-08-29 14:23 | P.PNIM_ITS ---
Subjective Subjective Date of Service: 08/29/24 Interval History: c/o dyspnea still in AF, rate in 110s Review of Systems Review of Systems: Yes all other systems are reviewed and are negative Physical Exam 2 Vital Signs: Vital Signs: Last Vital Signs Temp 97.3 F 08/29/24 11:10 Pulse 114 H 08/29/24 11:37 Resp 20 08/29/24 11:37 BP 130/79 08/29/24 11:10 Pulse Ox 96 08/29/24 11:10 O2 Del Method Oxymask 08/29/24 11:10 O2 Flow Rate 6 08/29/24 11:10 FiO2 40 08/27/24 16:38 Oxygen Flow Rate 5 08/27/24 19:33 BMI result Body Mass Index 33.3 Gen: in no acute distress HEENT: sclera anicteric, moist mucus membranes Neck: supple Lungs: diminished Heart: rapid, irregular, no murmurs Abd: soft, non-tender, non-distended Ext: no edema Skin: warm/well-perfused Neuro: alert and oriented x3, no focal findings Psych: appropriate affect Objective Data Active Medications Acetaminophen (Acetaminophen 325 Mg Tablet) 650 mg PO Q6H PRN PRN Reason: Pain, Mild 1-3,fever,headache Albuterol Sulfate (Albuterol Sulfate (0.083%) 2.5 Mg/3 Ml Vial.Neb) 2.5 mg INHALE Q2H PRN PRN Reason: Shortness of Breath/Wheezing Last Admin: 08/27/24 23:05 Dose: 2.5 mg Documented By: JUSTO Albuterol/Ipratropium (Albuterol/Iprat 2.5/0.5mg 3 Ml Ampul.Neb) 3 ml INHALE RQ4H WHILE AWAKE [facility] Last Admin: 08/29/24 11:36 Dose: 3 ml Documented By: JOSIE Apixaban (Apixaban 2.5 Mg Tablet) 2.5 mg PO BID [facility] Last Admin: 08/29/24 07:43 Dose: 2.5 mg Documented By: DEMETRIUS Brimonidine Tartrate (Brimonidine Tartrate 0.2% Oph 5 Ml Bottle) 1 drop EYE- BOTH TID [facility] Last Admin: 08/29/24 07:43 Dose: 1 drop Documented By: DEMETRIUS Calcium Carbonate (Calcium Carbonate 750 Mg Tab.Chew) 750 mg PO Q4H PRN PRN Reason: Heartburn Ceftriaxone Sodium (Ceftriaxone Sodium 1 Gm Vial) 1 gm IVPUSH Q24H [facility] Last Admin: 08/28/24 14:02 Dose: 1 gm Documented By: JONAS Furosemide (Furosemide 40 Mg/4 Ml Vial) 40 mg IVPUSH BID@0900,1800 [facility]; Protocol Last Admin: 08/29/24 07:43 Dose: 40 mg Documented By: DEMETRIUS Gabapentin (Gabapentin 100 Mg Capsule) 100 mg PO BID PRN PRN Reason: Pain, Moderate(Pain Scale 4-6) Azithromycin 500 mg/ Sodium (Chloride) 250 mls @ 125 mls/hr IV Q24H [facility] Stop: 08/31/24 17:59 Last Infusion: 08/28/24 18:15 Dose: Infused Documented By: ROBERTO Diltiazem HCl 125 mg/ Sodium (Chloride) 125 mls @ 0 mls/hr IVCONT .Q0M [facility]; Protocol Last Titration: 08/29/24 13:36 Dose: 10 mg/hr, 10 mls/hr Documented By: DEMETRIUS Magnesium Hydroxide (Milk Of Magnesia 30 Ml Oral.Susp) 30 ml PO DAILY PRN PRN Reason: Constipation Melatonin (Melatonin 3 Mg Tablet) 6 mg PO BEDTIME PRN PRN Reason: Insomnia Methylprednisolone Sodium Succinate (Methylprednisolone Sod Succ 40 Mg/Ml Vial) 40 mg IVPUSH Q12H [facility] Last Admin: 08/29/24 02:35 Dose: 40 mg Documented By: STUART Omeprazole (Omeprazole 20 Mg Capsule.Dr) 20 mg PO DAILY@0630,1630 PRN PRN Reason: heartburns Sodium Chloride (0.9 % Sodium Chloride Flush 3 Ml Syringe) 3 ml IVFLUSH QSHIFT [facility] Last Admin: 08/29/24 07:43 Dose: 3 ml Documented By: DEMETRIUS Labs 08/29/24 05:52 08/29/24 05:52 Labs: Laboratory Results - last 24 hr 08/29/24 05:52 MCV 82.0 MCH 23.4 L MCHC 28.5 L RDW 17.1 H Plt Count 328 D MPV 10.6 Immature Gran % (Auto) 0.6 H Neut % (Auto) 91.7 H Lymph % (Auto) 4.5 L [place] % (Auto) 3.1 Eos % (Auto) 0.0 Baso % (Auto) 0.1 Lymph # (Auto) 0.8 L [place] # (Auto) 0.5 Eos # (Auto) 0.0 Baso # (Auto) 0.0 Abs Immat Gran (auto) 0.11 H Absolute Neuts (auto) 15.5 H Absolute Nucleated RBC 0.030 H Nucleated RBC % (auto) 0.2 Smear Tech's Comments VERIFIED Anion Gap 17 Estim Creat Clear Calc 17.9 Estimated GFR 19 Fasting Glucose 147 H Calcium 9.3 Total Bilirubin 0.4 AST 23 ALT 22 Alkaline Phosphatase 105 Total Protein 6.8 Albumin 3.6 Procalcitonin 0.08 Microbiology Microbiology Results: Microbiology 08/27/24 13:38 Blood Culture - Preliminary Blood - Venous No growth after 24 hours. 08/27/24 13:23 Blood Culture - Preliminary Blood - Venous No growth after 24 hours. Assessment and Plan (1) Atrial fibrillation with RVR: Status: Acute (2) Acute congestive heart failure: Status: Acute Plan d3 for 80yo F with tobacco abuse, HTN, CAD presenting with 1 wk of dyspnea + productive sputum, found to have AF/RVR [new onset] AF/RVR - place back on diltiazem gtt, no beta-blockers given wheezing, no digoxin given NEEL - Cardiology following - on apixaban for AC acute-chronic HFrEF - hold furosemide given NEEL - TTE 08/28/24: - Visually estimated LVEF about 40%. - There is moderate to severe tricuspid valve regurgitation. - Moderate pulmonary hypertension is present. hyperK, mild - give 1 dose SZC, recheck BMP in AM NEEL - HOLD diuresis, recheck BMP in AM AHRF due to COPD exacerbation + CAP - 08/27- ceftriaxone + azithromycin - 08/28- methylprednisolone - standing/prn nebs; change to levalbuterol as suggested in H+P 08/27 and progress note 08/28 - wean O2 as tolerated tobacco abuse - NRT, counseling VTE ppx - anticoagulation with apixaban dispo - TBD In my clinical judgment, the patient requires continued inpatient hospitalization for the following reasons: hypoxia, rate control, NEEL Total time managing care of this patient today: 45 minutes. Quality Stroke Does the patient have a stroke diagnosis?: No VTE Prior VTE?: No VTE Risk Level:: Medical - moderate - high VTE Device Contraindication: Treatment Not Indicated VTE Drug Contraindication: N/A - Med Ordered
[2024-08-29] MEDS: cefTRIAXone sodium 1 GM VIAL IVPUSH (14:26)
[2024-08-29] MEDS: Azithromycin 500 MG in 0.9 % Sodium Chloride 250 ML 125 MG IV (15:31)
[2024-08-29] MEDS: levalbuterol HCL 1.25 MG/3 ML VIAL.NEB INHALE ×2 (15:59→21:12)
[2024-08-30] VITALS (11 sets, daily range): BP systolic 126–148; BP diastolic 58–74; PULSE 73–103; RESP 18–23; TEMP 36.3–36.9; O2SAT 91–97
[2024-08-30] MEDS: methylPREDNISolone Sod Succ 40 MG/ML VIAL IVPUSH (02:25)
[2024-08-30] MEDS: levalbuterol HCL 1.25 MG/3 ML VIAL.NEB INHALE ×3 (07:56→19:33)
[2024-08-30 08:17] LABS: Anion Gap 17 (12-20); Blood Urea Nitrogen 71 mg/dL (9-16); Calcium 10.1 mg/dL (8.4-10.2); Carbon Dioxide 22 mmol/L (22-29); Chloride 102 mmol/L (96-108); Creatinine Clr Calc Pharmacy 15.4; Estimated Glomerular Filt Rate 16; Glucose Random 146 mg/dL (60-115); Magnesium 2.7 mg/dL (1.6-2.6); Potassium 4.9 mmol/L (3.3-5.1); Sodium 136 mmol/L (135-145)
[2024-08-30 09:00] LABS: B Type Natriuretic Peptide 471 pg/mL (<100)
[2024-08-30] MEDS: Calcium Carbonate 750 MG TAB.CHEW PO (09:36)
[2024-08-30] MEDS: Apixaban 2.5 MG TABLET PO (09:36)
[2024-08-30] MEDS: 0.9 % Sodium Chloride Flush 3 ML SYRINGE IVFLUSH ×3 (09:37→21:11)
[2024-08-30] MEDS: Brimonidine Tartrate 0.2% Oph 5 ML BOTTLE 1 DROP EYE-BOTH ×3 (09:39→21:24)
[2024-08-30] MEDS: dilTIAZem HCL 125 MG in 0.9 % Sodium Chloride 100 ML 10 MG IVCONT ×2 (09:46→20:42)
--- NOTE | 2024-08-30 10:06 | PC.NURSE ---
This nurse consulted environmental health manager, no rate change recomended for diltiazem drip running @ 10
[2024-08-30] MEDS: Omeprazole 20 MG CAPSULE.DR PO (10:24)
--- NOTE | 2024-08-30 10:28 | PM.PNCARD ---
Subjective Subjective Date of Service: 08/30/24 Interval history: She looks just about the same as yesterday. On supplemental oxygen. Slightly tachypneic. Seems to have shortness of breath although she does not state that clearly. Review of Systems Review of Systems Yes all other systems are reviewed and are negative Constitutional: Reports as per HPI and Reports no additional constitutional complaints Eyes: Reports as per HPI and Denies no additional eye complaints Denies system reviewed and no additional complaints, except as documented and Reports as per HPI Cardiovascular: Reports as per HPI, Reports no additional cardiovascular complaints, Denies acrocyanosis, Denies cool extremities, Denies chest pain, Denies leg edema, Denies lightheadedness, Denies palpitations and Reports dyspnea Respiratory: Reports as per HPI, Denies no additional respiratory complaints and Reports dyspnea Gastrointestinal: Reports as per HPI and Denies no additional gastrointestinal complaints Musculoskeletal: Reports no additional musculoskeletal complaints and Reports as per HPI Skin/Breast: Reports system reviewed and no additional complaints, except as docu Reports system reviewed and no additional complaints, except as documented and Reports as per HPI Psychiatric: Reports no additional psychiatric complaints and Reports as per HPI Endocrine: Reports no additional endocrine complaints, Reports as per HPI and Denies palpitations Hematologic/Lymphatic: Reports no additional hematologic/lymphatic complaints and Reports as per HPI Allergic/Immunologic: Reports no additional allergic/immunologic complaints and Reports as per HPI Physical Exam Vital Signs: Last Vital Signs Temp 97.9 F 08/30/24 07:04 Pulse 90 08/30/24 07:56 Resp 18 08/30/24 07:56 BP 133/74 08/30/24 07:04 Pulse Ox 92 08/30/24 07:04 O2 Del Method Oxymask 08/30/24 07:04 O2 Flow Rate 6 08/30/24 07:04 FiO2 40 08/27/24 16:38 Oxygen Flow Rate 5 08/27/24 19:33 BMI result Body Mass Index 33.3 Const General: comfortable and no acute distress Orientation/consciousness: patient oriented x3 HEENT Other: Unremarkable Head: Yes normal to inspection Neck Neck: Yes normal visual inspection Chest Chest palpation & inspection: normal inspection of the chest Resp Auscultation: wheezes and diminished lung sounds Cardio Palpation: normal PMI Heart sounds: S1 normal heart sound present, S2 normal heart sound present, no gallops, no murmurs and no rubs GI Palpation (GI): Soft to palpation Back/Spine/Pelvis Other: unremarkable Skin General skin exam: no rashes or lesions noted Neuro General: patient oriented x3 Extrem General: Yes edema Psych Mental Status: mental status grossly normal Objective Labs and Meds 08/29/24 05:52 08/30/24 07:23 Lab results: Laboratory Results - last 24 hr 08/30/24 07:23 Sodium 136 Potassium 4.9 Chloride 102 Carbon Dioxide 22 Anion Gap 17 BUN 71 H Creatinine 2.80 H Estim Creat Clear Calc 15.4 Estimated GFR 16 Random Glucose 146 H Calcium 10.1 D Magnesium 2.7 H B-Natriuretic Peptide 471 H Progress Note: A&P Assessment and plan (1) Acute congestive heart failure: Status: Acute (2) Atrial fibrillation with RVR: Status: Acute (3) COPD exacerbation: Status: Acute Plan Pertinent data reviewed. Echocardiogram showed diminished LVEF, suspect about 40%. There is moderate to severe tricuspid regurgitation with pulmonary hypertension. With regard to the labs, the kidney function is going up. BUN/creatinine is higher. With regard to atrial fibrillation and rapid rate, likely driven because of the pulmonary issues. She is back on the Cardizem drip. We will not be able to use digoxin because of renal insufficiency and not suitable for beta-blockers either because of wheezing. She remains on anticoagulation. Diuretics have been held off because of renal dysfunction. With regard to COPD, on appropriate treatment. On supplemental oxygen. OxyMask/6 L a minute. Overall, because of multiorgan dysfunction including cardiac, pulmonary and renal, advanced age, frailty, prognosis guarded. Will need to contact family to discuss goals of care. Discussed with Time Spent With Patient Time: Total time managing care of this patient today ____ minutes. Progress Note: Quality Stroke Does the patient have a stroke diagnosis?: No Procedures Date of Service Date of Service: 08/30/24
[2024-08-30] MEDS: methylPREDNISolone Sod Succ 40 MG/ML VIAL 60 MG IVPUSH ×2 (12:45→21:10)
[2024-08-30] MEDS: Magnesium Hydrox/Alum Hydrox 30 ML ORAL.SUSP PO (12:54)
[2024-08-30] MEDS: cefTRIAXone sodium 1 GM VIAL IVPUSH (12:56)
[2024-08-30] MEDS: Azithromycin 500 MG in 0.9 % Sodium Chloride 250 ML 125 MG IV (15:29)
[2024-08-30] MEDS: Pantoprazole Sodium 40 MG/10 ML VIAL IVPUSH (15:29)
--- NOTE | 2024-08-30 15:44 | P.PNIM_ITS ---
Subjective Subjective Date of Service: 08/30/24 Interval History: c/o dyspnea + wheeze. No chest pain. Still in AF, rate 90s-100s on diltiazem gtt 10 mg/hr. SCr worse Review of Systems Review of Systems: Yes all other systems are reviewed and are negative Physical Exam 2 Vital Signs: Vital Signs: Last Vital Signs Temp 98.1 F 08/30/24 11:03 Pulse 103 H 08/30/24 11:34 Resp 20 08/30/24 11:34 BP 148/72 H 08/30/24 11:03 Pulse Ox 92 08/30/24 11:03 O2 Del Method Oxymask 08/30/24 11:03 O2 Flow Rate 6 08/30/24 11:03 FiO2 40 08/27/24 16:38 Oxygen Flow Rate 5 08/27/24 19:33 BMI result Body Mass Index 33.3 Gen: in no acute distress HEENT: sclera anicteric, moist mucus membranes Neck: supple Lungs: diminished, bilateral wheezing Heart: rapid, irregular, no murmurs Abd: soft, non-tender, non-distended Ext: no edema Skin: warm/well-perfused Neuro: alert and oriented x3, no focal findings Psych: appropriate affect Objective Data Active Medications Acetaminophen (Acetaminophen 325 Mg Tablet) 650 mg PO Q6H PRN PRN Reason: Pain, Mild 1-3,fever,headache Brimonidine Tartrate (Brimonidine Tartrate 0.2% Oph 5 Ml Bottle) 1 drop EYE- BOTH TID [facility] Last Admin: 08/30/24 15:32 Dose: 1 drop Documented By: JONAS Calcium Carbonate (Calcium Carbonate 750 Mg Tab.Chew) 750 mg PO Q4H PRN PRN Reason: Heartburn Last Admin: 08/30/24 09:36 Dose: 750 mg Documented By: JONAS Furosemide (Furosemide 40 Mg/4 Ml Vial) 40 mg IVPUSH BID@0900,1800 [facility]; Protocol Last Admin: 08/29/24 07:43 Dose: 40 mg Documented By: DEMETRIUS Gabapentin (Gabapentin 100 Mg Capsule) 100 mg PO BID PRN PRN Reason: Pain, Moderate(Pain Scale 4-6) Heparin Sodium (Porcine) (Heparin Sodium,Porcine 5,000 Unit/Ml Vial) 5,000 unit SUBCUT Q8H [facility] Diltiazem HCl 125 mg/ Sodium (Chloride) 125 mls @ 0 mls/hr IVCONT .Q0M [facility]; Protocol Last Admin: 08/30/24 09:46 Dose: 10 mg/hr, 10 mls/hr Documented By: JONAS Piperacillin Sod/Tazobactam (Sod 2.25 gm/ Sodium Chloride) 50 mls @ 100 mls/hr IV Q6H [facility] Linezolid (Zyvox/D5w) 600 mg in 300 mls @ 300 mls/hr IV Q12H [facility] Levalbuterol HCl (Levalbuterol Hcl 1.25 Mg/3 Ml Vial.Neb) 1.25 mg INHALE Q2H PRN PRN Reason: Shortness of Breath/Wheezing Levalbuterol HCl (Levalbuterol Hcl 1.25 Mg/3 Ml Vial.Neb) 1.25 mg INHALE RQ4H [facility] Last Admin: 08/30/24 15:34 Dose: Not Given Documented By: JOSIE Non-Admin Reason: pt off unit Magnesium Hydroxide (Milk Of Magnesia 30 Ml Oral.Susp) 30 ml PO DAILY PRN PRN Reason: Constipation Melatonin (Melatonin 3 Mg Tablet) 6 mg PO BEDTIME PRN PRN Reason: Insomnia Methylprednisolone Sodium Succinate (Methylprednisolone Sod Succ 40 Mg/Ml Vial) 60 mg IVPUSH Q8H [facility] Last Admin: 08/30/24 12:45 Dose: 60 mg Documented By: JONAS Nicotine Polacrilex (Nicotine Polacrilex Lozenge 2 Mg Lozenge) 2 mg BUCCAL Q2H PRN PRN Reason: Nicotine Cravings Pantoprazole Sodium (Pantoprazole Sodium 40 Mg/10 Ml Vial) 40 mg IVPUSH BID@0630,1630 [facility] Last Admin: 08/30/24 15:29 Dose: 40 mg Documented By: JONAS Sodium Chloride (0.9 % Sodium Chloride Flush 3 Ml Syringe) 3 ml IVFLUSH QSHIFT [facility] Last Admin: 08/30/24 15:31 Dose: 3 ml Documented By: JONAS Labs 08/29/24 05:52 08/30/24 07:23 Labs: Laboratory Results - last 24 hr 08/30/24 07:23 Anion Gap 17 Estim Creat Clear Calc 15.4 Estimated GFR 16 Random Glucose 146 H Calcium 10.1 D Magnesium 2.7 H B-Natriuretic Peptide 471 H Microbiology Microbiology Results: Microbiology 08/27/24 13:38 Blood Culture - Preliminary Blood - Venous No growth after 48 hours. 08/27/24 13:23 Blood Culture - Preliminary Blood - Venous No growth after 48 hours. Assessment and Plan (1) Atrial fibrillation with RVR: Status: Acute (2) Acute congestive heart failure: Status: Acute Plan d4 for 80yo F with tobacco abuse, HTN, CAD presenting with 1 wk of dyspnea + productive sputum, found to have AF/RVR [new onset] acute hypoxic respiratory failure due to COPD exacerbation + CAP - 08/27-08/30 ceftriaxone + azithromycin; change to piperacillin-tazobactam and linezolid 08/30- and check MRSA swab - 08/28- methylprednisolone, increase 08/30 to 60 mg q8h - standing/prn nebs - CT chest to delinieate pneumonia/pleural effusion - wean O2 as tolerated; currently on 7L via Oxymask NEEL - HOLD diuresis, recheck BMP in AM, check urine studies + renal US, consult Nephrology AF/RVR - continue diltiazem gtt, no beta-blockers given wheezing, no digoxin given NEEL - Cardiology following; address pulmonary issues as above - on apixaban for AC -> change to heparin in case of thoracentesis acute-chronic HFrEF - hold furosemide given NEEL - TTE 08/28/24: - Visually estimated LVEF about 40%. - There is moderate to severe tricuspid valve regurgitation. - Moderate pulmonary hypertension is present. hyperK, mild - resolved p 1 dose SZC tobacco abuse - NRT, counseling VTE ppx - heparin dispo - TBD In my clinical judgment, the patient requires continued inpatient hospitalization for the following reasons: hypoxia, rate control, NEEL I updated the pt's daughter Gianna Ha at bedside. Patient is FULL CODE; discussed with pt and her daughter. Total time managing care of this patient today: 50 minutes. Quality Stroke Does the patient have a stroke diagnosis?: No VTE Prior VTE?: No VTE Risk Level:: Medical - moderate - high VTE Device Contraindication: Treatment Not Indicated VTE Drug Contraindication: N/A - Med Ordered
[2024-08-30] MEDS: Heparin Sodium,Porcine 5,000 UNIT/ML VIAL 5000 UNIT SUBCUT (15:48)
--- NOTE | 2024-08-30 15:50 | PC.NURSE ---
diltiazem drip titrated to 15 per md Mitch
[2024-08-30] MEDS: Piperacillin Sodium/Tazobactam 2.25 GM in 0.9 % Sodium Chloride 50 ML IV ×2 (17:53→23:58)
[2024-08-30] MEDS: Linezolid/D5W 600 MG/300 ML PIGGYBACK 300 MG IV (18:39)
[2024-08-30 18:55] LABS: Appearance Urine Clear; Color Urine Yellow; Glucose Urine UA Negative (Negative); Leukocyte Esterase Urine Negative (Negative); Nitrite Urine Negative (Negative); Specific Gravity - Urine 1.015 (1.005-1.025); UMIC TRIGGER UA YES; Urine Blood Moderate (2+) (Negative); Urine Ketones Negative (Negative); Urine Protein 300 (3+) mg/dL (Neg-Trace)
[2024-08-30 19:12] LABS: Bacteria Urine None Seen (None Seen); Hyaline Casts Urine 0-2 /LPF (0-2); RBC Urine 0-2 /HPF (0-2); WBC Urine 0-5 /HPF (0-5)
[2024-08-31] VITALS (17 sets, daily range): BP systolic 120–148; BP diastolic 56–67; PULSE 72–98; RESP 16–22; TEMP 36.1–36.6; O2SAT 92–98; BMI 33.3
[2024-08-31] MEDS: Heparin Sodium,Porcine 5,000 UNIT/ML VIAL 5000 UNIT SUBCUT ×2 (00:44→08:13)
[2024-08-31] MEDS: Furosemide 40 MG/4 ML VIAL IVPUSH (00:45)
[2024-08-31] MEDS: levalbuterol HCL 1.25 MG/3 ML VIAL.NEB INHALE ×6 (00:49→21:45)
--- NOTE | 2024-08-31 00:52 | PC.RT ---
Placed pt on rescue CPAP 12+ 60%, MD / RN at pt's bedside, RN took pt off noc CPAP due to increase O2 needs, placed pt on NRB @ 100% w/ SPO2 95/96%. Trialing rescue CPAP
[2024-08-31] MEDS: Linezolid/D5W 600 MG/300 ML PIGGYBACK 300 MG IV ×2 (03:09→17:21)
[2024-08-31] MEDS: methylPREDNISolone Sod Succ 40 MG/ML VIAL 60 MG IVPUSH ×3 (03:10→22:10)
[2024-08-31] MEDS: Piperacillin Sodium/Tazobactam 2.25 GM in 0.9 % Sodium Chloride 50 ML IV ×4 (05:28→22:12)
[2024-08-31] MEDS: Pantoprazole Sodium 40 MG/10 ML VIAL IVPUSH ×2 (05:28→17:21)
[2024-08-31 07:49] LABS: VBG Base Excess -3.2 mmol/L; VBG HCO3 24 mmol/L (22-26); VBG pCO2 54 mmHg; VBG pH 7.25 (7.32-7.43); VBG pO2 46 mmHg
[2024-08-31 07:49] LABS: Venous Blood Gas Refer to POC result
[2024-08-31 08:05] LABS: Anion Gap 16 (12-20); Blood Urea Nitrogen 90 mg/dL (9-16); Calcium 9.7 mg/dL (8.4-10.2); Carbon Dioxide 21 mmol/L (22-29); Chloride 102 mmol/L (96-108); Creatinine Clr Calc Pharmacy 13.2; Estimated Glomerular Filt Rate 13; Glucose Random 143 mg/dL (60-115); Magnesium 2.9 mg/dL (1.6-2.6); Potassium 5.2 mmol/L (3.3-5.1); Sodium 134 mmol/L (135-145)
[2024-08-31 08:12] LABS: B Type Natriuretic Peptide 541 pg/mL (<100)
[2024-08-31] MEDS: Brimonidine Tartrate 0.2% Oph 5 ML BOTTLE 1 DROP EYE-BOTH ×3 (08:13→22:12)
[2024-08-31] MEDS: 0.9 % Sodium Chloride Flush 3 ML SYRINGE IVFLUSH ×3 (08:13→22:10)
[2024-08-31 09:02] LABS: Procalcitonin 0.08 ng/mL
[2024-08-31] MEDS: Furosemide 200 MG in 0.9 % Sodium Chloride 80 ML IVCONT (10:56)
[2024-08-31] MEDS: dilTIAZem HCL CD 180 MG CAP.ER.24H PO (10:56)
[2024-08-31] MEDS: Sodium Zirconium Cyclosilicate 5 GM POWD.PACK PO (10:56)
[2024-08-31] MEDS: Ipratropium Bromide 0.5 MG/2.5 ML SOLUTION INHALE ×3 (11:34→21:45)
--- NOTE | 2024-08-31 12:23 | P.PNCA_ITS ---
Subjective Subjective Date of Service: 08/31/24 Interval history: Seen examined at bedside. She is saying she is feeling better. Continues to have wheezing. Being started on Lasix drip. Physical Exam Vital Signs: Last Vital Signs Temp 97.5 F 08/31/24 11:39 Pulse 90 08/31/24 11:39 Resp 18 08/31/24 11:39 BP 125/57 L 08/31/24 11:39 Pulse Ox 97 08/31/24 11:39 O2 Del Method CPAP 08/31/24 07:38 O2 Flow Rate 12 08/31/24 07:38 FiO2 60 08/31/24 07:38 Oxygen Flow Rate 5 08/27/24 19:33 BMI result Body Mass Index 33.3 GENERAL APPEARANCE: On face mask. Short of breath. NECK: no carotid bruit, positive jugular venous distention. SKIN: no suspicious lesions, warm and dry. HEART: no murmurs, irregular rate and rhythm. LUNGS: Bilateral expiratory wheezes with crackles at bases. ABDOMEN: soft, nontender. EXTREMITIES: + edema. PERIPHERAL PULSES: equal. NEUROLOGIC: No gross deficits, AAO X 3 Objective Labs and Meds 08/29/24 05:52 08/31/24 07:47 Lab results: Laboratory Results - last 24 hr 08/30/24 08/31/24 08/31/24 18:25 07:45 07:47 VBG pH 7.25 L VBG pCO2 54 VBG pO2 46 VBG HCO3 24 VBG O2 Saturation 69.0 VBG Base Excess -3.2 Sodium 134 L Potassium 5.2 H Chloride 102 Carbon Dioxide 21 L Anion Gap 16 BUN 90 H Creatinine 3.28 H Estim Creat Clear Calc 13.2 Estimated GFR 13 Random Glucose 143 H Calcium 9.7 Magnesium 2.9 H Total Creatine Kinase 35 B-Natriuretic Peptide 541 H Procalcitonin 0.08 Urine Color Yellow Urine Appearance Clear Urine pH 5.0 Ur Specific [employer] 1.015 Urine Protein 300 (3+) H Urine Glucose (UA) Negative Urine Ketones Negative Urine Blood Moderate (2+) H Urine Nitrite Negative Ur Leukocyte Esterase Negative Urine RBC 0-2 Urine WBC 0-5 Ur Squamous Epith Cells 6-10 Urine Bacteria None Seen Hyaline Casts 0-2 Ur Random Sodium 31.0 Urine Creatinine 115.00 Progress Note: A&P Assessment and plan (1) COPD exacerbation: Status: Acute (2) Atrial fibrillation with rapid ventricular response: Status: Acute Plan 88-year-old female presenting for atrial fibrillation and shortness of breath. Being treated for COPD exacerbation as well as heart failure. Creatinine worsening with diuresis but was also on a Cardizem drip and now on oral Cardizem. Due to wheezing beta-blockers were not tried. Clinically she appears to be volume overloaded. I agree with IV diuretics. I think diltiazem should be discontinued she is not tolerating it and her creatinine is worsening and she continues to be overloaded. If she is tachycardic then digoxin loading is a possibility. Would not use standing dose of digoxin with current creatinine clearance. She has mild biventricular dysfunction as well as pulmonary hypertension. We will follow along with you. Thank you for allowing me to participate in the care of your patient. Please feel free to contact me if you have any questions. Time Spent With Patient Time: Total time managing care of this patient today ____ minutes. Progress Note: Quality Stroke Does the patient have a stroke diagnosis?: No Procedures Date of Service Date of Service: 08/31/24
--- NOTE | 2024-08-31 12:35 | HO.WOUND ---
Addendum entered by Yessy Omalley RN 09/03/24 12:29: 09/03/24 received new consult - spoke to direct care nurse - no new concerns noted from assessment on 08/31/24. Topical orders in place. Original Note: Wound Consult: Initial 88yr old female? [place] [facility] [place] - See progress notes and H&P for detailed history.? Wound consult placed for coccyx wound POA.? Patient agreeable to assessment and photo documentation.? Coccyx Etiology: ?Stage 2 Pressure Injury ?Present on Admission Measurements: 0.4cm x 0.4cm x 0.2cm Wound Bed: pink moist wound bed Drainage / Odor: none noted at this time Edges: ? attached and irregular [place] wound: ? MASD No Induration, Fluctuance or Warmth noted Pain: denies Goals of Treatment: ? Barreir cream to allow for moist wound healing and to protect from friciton and moisture. Q2hr tturns when in bed and JOHANN pump to be added to bed. Recommendations: 1. Turn and Reposition every 2 hours and as needed for patient comfort.? Use pillows or wedges to support off loading positions. 2. Off Load all bony prominences with use of pillows and heel boots if needed.? Apply Preventative foams where needed. ? 3. Monitor for incontinence and moisture control, use barrier creams when needed for prevention and treatment. 4. Provide adequate and supplemental nutrition.? 5. Order low air loss mattress. 6. When applicable maintain blood glucose levels per Providers order. 7. Coccyx - Off Load pressure with Q2hr turns and use of pillows. Routine cleaning, Apply barrier cream twice daily and PRN after episodes of incontinence. Re-consult wound care Nurse for wound deterioration or wound changes.
[2024-08-31 13:12] LABS: Adenovirus PCR Not Detected (Not Detect.); Bordetella parapertussis PCR Not Detected (Not Detect.); Bordetella pertussis PCR Not Detected (Not Detect.); Chlamydia pneumoniae PCR Not Detected (Not Detect.); Coronavirus 229E PCR Not Detected (Not Detect.); Coronavirus HKU1 PCR Not Detected (Not Detect.); Coronavirus NL63 PCR Not Detected (Not Detect.); Coronavirus OC43 PCR Not Detected (Not Detect.); Human metapneumovirus PCR Not Detected (Not Detect.); Influenza A PCR Not Detected (Not Detect.); Influenza B PCR Not Detected (Not Detect.); Mycoplasma pneumoniae PCR Not Detected (Not Detect.); Parainfluenza 1 PCR Not Detected (Not Detect.); Parainfluenza 2 PCR Not Detected (Not Detect.); Parainfluenza 3 PCR Not Detected (Not Detect.); Parainfluenza 4 PCR Not Detected (Not Detect.); RSV PCR Not Detected (Not Detect.); Rhino/Enterovirus PCR Not Detected (Not Detect.)
[2024-08-31 14:07] LABS: SARS-CoV-2 PCR Not Detected (Not Detect.)
[2024-08-31] MEDS: Apixaban 2.5 MG TABLET PO ×2 (14:08→22:11)
--- NOTE | 2024-08-31 14:37 | P.PNIM_ITS ---
Subjective Subjective Date of Service: 08/31/24 Interval History: still short of breath and wheezing, SCr continues to increase. Was placed on CPAP overnight and got 1 dose Lasix. HR controlled, diltiazem gtt shut off overnight no chest pain no fever Review of Systems Review of Systems: Yes all other systems are reviewed and are negative Physical Exam 2 Vital Signs: Vital Signs: Last Vital Signs Temp 97.5 F 08/31/24 11:39 Pulse 90 08/31/24 11:39 Resp 18 08/31/24 11:39 BP 125/57 L 08/31/24 11:39 Pulse Ox 97 08/31/24 11:39 O2 Del Method CPAP 08/31/24 07:38 O2 Flow Rate 12 08/31/24 07:38 FiO2 60 08/31/24 07:38 Oxygen Flow Rate 5 08/27/24 19:33 BMI result Body Mass Index 33.3 Gen: somewhat dyspneic HEENT: sclera anicteric, moist mucus membranes Neck: supple Lungs: diminished, bilateral wheezing, some crackles at bases Heart: normal rate, irregular, no murmurs Abd: soft, non-tender, non-distended Ext: 1+ BLE edema Skin: warm/well-perfused Neuro: alert and oriented x3, no focal findings Psych: appropriate affect Objective Data Active Medications Acetaminophen (Acetaminophen 325 Mg Tablet) 650 mg PO Q6H PRN PRN Reason: Pain, Mild 1-3,fever,headache Apixaban (Apixaban 2.5 Mg Tablet) 2.5 mg PO BID FORMERLY [facility], [facility] Last Admin: 08/31/24 14:08 Dose: 2.5 mg Documented By: GAGE Brimonidine Tartrate (Brimonidine Tartrate 0.2% Oph 5 Ml Bottle) 1 drop EYE- BOTH TID FORMERLY [facility], [facility]1983 Last Admin: 08/31/24 08:13 Dose: 1 drop Documented By: GAGE Calcium Carbonate (Calcium Carbonate 750 Mg Tab.Chew) 750 mg PO Q4H PRN PRN Reason: Heartburn Last Admin: 08/30/24 09:36 Dose: 750 mg Documented By: JONAS Gabapentin (Gabapentin 100 Mg Capsule) 100 mg PO BID PRN PRN Reason: Pain, Moderate(Pain Scale 4-6) Piperacillin Sod/Tazobactam (Sod 2.25 gm/ Sodium Chloride) 50 mls @ 100 mls/hr IV Q6H FORMERLY [facility], [facility] Last Infusion: 08/31/24 12:11 Dose: Infused Documented By: GAGE Linezolid (Zyvox/D5w) 600 mg in 300 mls @ 300 mls/hr IV Q12H FORMERLY [facility], [facility] Last Infusion: 08/31/24 04:31 Dose: Infused Documented By: ZACH Furosemide 200 mg/ Sodium (Chloride) 100 mls @ 2.5 mls/hr IVCONT .Q24H FORMERLY [facility], [facility] Last Admin: 08/31/24 10:56 Dose: 5 mg/hr, 2.5 mls/hr Documented By: GAGE Ipratropium [place] (Ipratropium [place] 0.5 Mg/2.5 Ml Solution) 0.5 mg INHALE RQ4H WHILE AWAKE FORMERLY [facility], [facility] Last Admin: 08/31/24 11:34 Dose: 0.5 mg Documented By: DONA Levalbuterol HCl (Levalbuterol Hcl 1.25 Mg/3 Ml Vial.Neb) 1.25 mg INHALE Q2H PRN PRN Reason: Shortness of Breath/Wheezing Levalbuterol HCl (Levalbuterol Hcl 1.25 Mg/3 Ml Vial.Neb) 1.25 mg INHALE RQ4H WHILE AWAKE FORMERLY [facility], [facility] Last Admin: 08/31/24 11:34 Dose: 1.25 mg Documented By: DONA Magnesium Hydroxide (Milk Of Magnesia 30 Ml Oral.Susp) 30 ml PO DAILY PRN PRN Reason: Constipation Melatonin (Melatonin 3 Mg Tablet) 6 mg PO BEDTIME PRN PRN Reason: Insomnia Methylprednisolone Sodium Succinate (Methylprednisolone Sod Succ 40 Mg/Ml Vial) 60 mg IVPUSH Q8H FORMERLY [facility], [facility] Last Admin: 08/31/24 11:28 Dose: 60 mg Documented By: GAGE Nicotine Polacrilex (Nicotine Polacrilex Lozenge 2 Mg Lozenge) 2 mg BUCCAL Q2H PRN PRN Reason: Nicotine Cravings Pantoprazole Sodium (Pantoprazole Sodium 40 Mg/10 Ml Vial) 40 mg IVPUSH BID@0630,1630 FORMERLY [facility], [facility] Last Admin: 08/31/24 05:28 Dose: 40 mg Documented By: ZACH Sodium Chloride (0.9 % Sodium Chloride Flush 3 Ml Syringe) 3 ml IVFLUSH QSHIFT FOR[facility], [facility] Last Admin: 08/31/24 08:13 Dose: 3 ml Documented By: GAGE Labs 08/29/24 05:52 08/31/24 07:47 Labs: Laboratory Results - last 24 hr 08/30/24 08/30/24 08/31/24 18:15 18:25 07:45 VBG pH 7.25 L VBG pCO2 54 VBG pO2 46 VBG HCO3 24 VBG O2 Saturation 69.0 VBG Base Excess -3.2 Anion Gap Estim Creat Clear Calc Estimated GFR Random Glucose Calcium Magnesium Total Creatine Kinase B-Natriuretic Peptide Procalcitonin Urine Color Yellow Urine Appearance Clear Urine pH 5.0 Ur Specific [place] 1.015 Urine Protein 300 (3+) H Urine Glucose (UA) Negative Urine Ketones Negative Urine Blood Moderate (2+) H Urine Nitrite Negative Ur Leukocyte Esterase Negative Urine RBC 0-2 Urine WBC 0-5 Ur Squamous Epith Cells 6-10 Urine Bacteria None Seen Hyaline Casts 0-2 Ur Random Sodium 31.0 Urine Creatinine 115.00 Respiratory Panel Stevens See Note Adenovirus (Rapid PCR) Not Detected B.pert (TEM-PCR) Not Detected B.parapertussis DNA PCR Not Detected C. pneumoniae DNA (PCR) Not Detected Coronavirus OC43 (PCR) Not Detected Coronavirus HKU1 (PCR) Not Detected Coronavirus 229E (PCR) Not Detected Coronavirus NL63 (PCR) Not Detected Human Metapneumovir PCR Not Detected Influenza A (RT-PCR) Not Detected Influenza B (RT-PCR) Not Detected M. pneumoniae (PCR) Not Detected Parainfluenza 1 (PCR) Not Detected Parainfluenza 2 (PCR) Not Detected Parainfluenza 3 (PCR) Not Detected Parainfluenza 4 (PCR) Not Detected RSV (PCR) Not Detected Entero/Rhino (PCR) Not Detected SARS-CoV-2 RNA (RT-PCR) Not Detected 08/31/24 07:47 VBG pH VBG pCO2 VBG pO2 VBG HCO3 VBG O2 Saturation VBG Base Excess Anion Gap 16 Estim Creat Clear Calc 13.2 Estimated GFR 13 Random Glucose 143 H Calcium 9.7 Magnesium 2.9 H Total Creatine Kinase 35 B-Natriuretic Peptide 541 H Procalcitonin 0.08 Urine Color Urine Appearance Urine pH Ur Specific [place] Urine Protein Urine Glucose (UA) Urine Ketones Urine Blood Urine Nitrite Ur Leukocyte Esterase Urine RBC Urine WBC Ur Squamous Epith Cells Urine Bacteria Hyaline Casts Ur Random Sodium Urine Creatinine Respiratory Panel [place] Adenovirus (Rapid PCR) B.pert (TEM-PCR) B.parapertussis DNA PCR C. pneumoniae DNA (PCR) Coronavirus OC43 (PCR) Coronavirus HKU1 (PCR) Coronavirus 229E (PCR) Coronavirus NL63 (PCR) Human Metapneumovir PCR Influenza A (RT-PCR) Influenza B (RT-PCR) M. pneumoniae (PCR) Parainfluenza 1 (PCR) Parainfluenza 2 (PCR) Parainfluenza 3 (PCR) Parainfluenza 4 (PCR) RSV (PCR) Entero/Rhino (PCR) SARS-CoV-2 RNA (RT-PCR) CT chest 08/30 1. Moderate bilateral pleural effusions with adjacent atelectasis and/or infiltrates within the lower lobes. 2. Apparent thickening of the mid and distal esophagus. Recommend clinical correlation to exclude esophagitis. 3. New 7 mm nodule within the inferior left upper lobe. Recommend follow-up per Fleischner criteria. 4. There is a small amount of free fluid within the right upper quadrant. Assessment and Plan (1) Atrial fibrillation with RVR: Status: Acute (2) Acute congestive heart failure: Status: Acute Plan d5 for 80yo F with tobacco abuse, HTN, CAD presenting with 1 wk of dyspnea + productive sputum, found to have AF/RVR [new onset] acute-chronic biventricular HF - Furosemide was held 08/29 due to NEEL but SCr continues to worsen and pt is clearly volume overloaded. Start furosemide IV infusion. Cardiology following. - TTE 08/28/24: - Visually estimated LVEF about 40%. - There is moderate to severe tricuspid valve regurgitation. - Moderate pulmonary hypertension is present. COPD exacerbation - 08/28- methylprednisolone, increased 08/30 to 60 mg q8h - standing/prn nebs PNA - 08/27-08/30 ceftriaxone + azithromycin; changed to piperacillin-tazobactam and linezolid 08/30- MRSA swab pending acute hypoxic respiratory failure - wean O2 as tolerated, treat causes as above NEEL - likely cardiorenal- discussed with Nephrology and Cardiology. Will start furosemide drip as above. Renal US pending. AF/RVR - now controlled off diltiazem gtt. Stop PO diltiazem per Cardiology. No beta- blockers given COPD. If needed, can give 1-time dose digoxin 250 mcg per Cardiology - resume apixaban for anticogulation hyperK, mild - resolved p 1 dose SZC tobacco abuse - NRT, counseling VTE ppx - apixaban dispo - TBD, likely needs STR In my clinical judgment, the patient requires continued inpatient hospitalization for the following reasons: hypoxia, IV furosemide, NEEL Total time managing care of this patient today: 55 minutes. Quality Stroke Does the patient have a stroke diagnosis?: No VTE Prior VTE?: No VTE Risk Level:: Medical - moderate - high VTE Device Contraindication: Treatment Not Indicated VTE Drug Contraindication: N/A - Med Ordered
--- NOTE | 2024-08-31 15:04 | PM.CNNEP ---
History of Present Illness Reason for Consult Consult date: 08/31/24 Chief Complaint Chief complaint: Acute CHF History of Present Illness Narrative: 88 year old female with a history of tobacco use, cognitive decline, HTN, and an AL in early with stents presenting to the emergency department today with shortness of breath. Patient states that over the last 3 days she has had worsening shortness of breath and difficulty breathing. Continues to smoke approximately 1 pack a day; states over the last 3 days the shortness of breath has been accompanied by a productive cough and today became such that she could not walk across the room without stopping.. In our workup consistent with acute CHF which is new along with AFib with a rapid ventricular response. She received bolus Cardizem dosing with placed on a drip. She did have some work of breathing and was placed on CPAP with good results Baseline serum creatinine is around 1.0-1.2 mg/dL. Since admission creatinine has been gradually increasing and as of this morning creatinine was 3.28. She continues her shortness of breath Review of Systems Review of Systems Yes Unobtainable due to mental condition PMFSH Past Medical History Medical History Macular degeneration Overweight (BMI 25.0-29.9) COVID-19 vaccine administered History of COVID-19 Restrictive lung disease Edema Current smoker Iron deficiency anemia Tobacco abuse Carotid bruit Obesity (BMI 30-39.9) Depression Insomnia Allergic rhinitis Elevated TSH GERD without esophagitis Impaired fasting glucose Anemia Knee osteoarthritis Vitamin D deficiency Chronic kidney disease (CKD), stage III (moderate) Pure hypercholesterolemia Benign essential hypertension Coronary artery disease Family History Family History Father Medical history unknown Mother CVD (cardiovascular disease) Surgical History Surgical History Hx of total knee arthroplasty Hx of colonoscopy Hx of cardiac cath Hx of bilateral cataract extraction History of hysterectomy Social History Social History Household Members: Family Household Members Other:: daughter and grandson live with patient. Housing: House Are you a primary care center manager to a significant other at home: No Do you presently have visiting nurse or other home services: Yes (elder care) Unable to assess alcohol history related to: Unknown Alcohol intake: never Comment: aware of trip hazard Patient Tobacco Use Status: Current everyday Tobacco user Tobacco use type: Cigarette Cigarette Packs Per Day: 1 Cigarettes Per Day: 20.0 Years Smoked: 70 Smoked in Last 30 Days: Yes e-Cigarette/Vaping Use: Never Used Patient Interested in Nicotine Replacement: Yes Second Hand Smoke Exposure: Yes Use of substances other than those prescribed or required for medical reasons: No Currently Displaying Signs/Symptoms of Drug Intoxication Withdrawal: No Have you been hit, kicked, punched, or otherwise hurt by someone within the past year? If so, by whom?: No Do you feel safe in your current relationship?: No Is there a partner from a previous relationship who is making you feel unsafe now?: No Are you made to feel afraid or neglected: No Advance Directives: No Advance Directives Information Provided: Yes Do you have a plan to hurt others: No Plan Recently lost weight without trying: No Eating poorly because of decreased appetite: No Patient : No : No Poor oral hygiene: No service: No Current occupational status: retired and disabled Cognitive needs: No (cane/walker) Hearing needs: No Vision needs: No Meds Allergies Allergy/AdvReac Type Severity Reaction Status Date / Time atorvastatin AdvReac Intermediate myalgias Verified 08/27/24 12:09 Active Medications: Current Medications Acetaminophen (Acetaminophen 325 Mg Tablet) 650 mg PO Q6H PRN PRN Reason: Pain, Mild 1-3,fever,headache Apixaban (Apixaban 2.5 Mg Tablet) 2.5 mg PO BID [facility] Last Admin: 08/31/24 14:08 Dose: 2.5 mg Brimonidine Tartrate (Brimonidine Tartrate 0.2% Oph 5 Ml Bottle) 1 drop EYE-BOTH TID [facility] Last Admin: 08/31/24 08:13 Dose: 1 drop Calcium Carbonate (Calcium Carbonate 750 Mg Tab.Chew) 750 mg PO Q4H PRN PRN Reason: Heartburn Last Admin: 08/30/24 09:36 Dose: 750 mg Gabapentin (Gabapentin 100 Mg Capsule) 100 mg PO BID PRN PRN Reason: Pain, Moderate(Pain Scale 4-6) Piperacillin Sod/Tazobactam (Sod 2.25 gm/ Sodium Chloride) 50 mls @ 100 mls/hr IV Q6H [facility] Last Infusion: 08/31/24 12:11 Dose: Infused Linezolid (Zyvox/D5w) 600 mg in 300 mls @ 300 mls/hr IV Q12H [facility] Last Infusion: 08/31/24 04:31 Dose: Infused Furosemide 200 mg/ Sodium (Chloride) 100 mls @ 2.5 mls/hr IVCONT .Q24H [facility] Last Admin: 08/31/24 10:56 Dose: 5 mg/hr, 2.5 mls/hr Ipratropium [place] (Ipratropium [place] 0.5 Mg/2.5 Ml Solution) 0.5 mg INHALE RQ4H WHILE AWAKE [facility] Last Admin: 08/31/24 11:34 Dose: 0.5 mg Levalbuterol HCl (Levalbuterol Hcl 1.25 Mg/3 Ml Vial.Neb) 1.25 mg INHALE Q2H PRN PRN Reason: Shortness of Breath/Wheezing Levalbuterol HCl (Levalbuterol Hcl 1.25 Mg/3 Ml Vial.Neb) 1.25 mg INHALE RQ4H WHILE AWAKE [facility] Last Admin: 08/31/24 11:34 Dose: 1.25 mg Magnesium Hydroxide (Milk Of Magnesia 30 Ml Oral.Susp) 30 ml PO DAILY PRN PRN Reason: Constipation Melatonin (Melatonin 3 Mg Tablet) 6 mg PO BEDTIME PRN PRN Reason: Insomnia Methylprednisolone Sodium Succinate (Methylprednisolone Sod Succ 40 Mg/Ml Vial) 60 mg IVPUSH Q8H [facility] Last Admin: 08/31/24 11:28 Dose: 60 mg Nicotine Polacrilex (Nicotine Polacrilex Lozenge 2 Mg Lozenge) 2 mg BUCCAL Q2H PRN PRN Reason: Nicotine Cravings Pantoprazole Sodium (Pantoprazole Sodium 40 Mg/10 Ml Vial) 40 mg IVPUSH BID@0630,1630 [facility] Last Admin: 08/31/24 05:28 Dose: 40 mg Sodium Chloride (0.9 % Sodium Chloride Flush 3 Ml Syringe) 3 ml IVFLUSH QSHIFT [facility] Last Admin: 08/31/24 08:13 Dose: 3 ml Home Medications ?Medication ?Instructions ?Recorded ?Confirmed ?Last Taken ?Type brimonidine 0.2 % eye drops 1 drp ophthalmic (eye) TID macular 04/17/23 08/27/24 Unknown History degeneration omeprazole 20 mg capsule,delayed 20 mg PO DAILY@0630,1630 PRN 05/18/24 08/27/24 Unknown History release heartburns aspirin 81 mg capsule 81 mg PO DAILY 07/30/24 08/27/24 Unknown History amlodipine 10 mg tablet 10 mg PO DAILY 08/27/24 08/27/24 Unknown History fesoterodine 4 mg tablet,extended 4 mg PO DAILY PRN Overactive 08/27/24 08/27/24 Unknown History release 24 hr Bladder gabapentin 100 mg capsule 100 mg PO BID PRN Pain 08/27/24 08/27/24 Unknown History rosuvastatin 20 mg tablet 20 mg PO BEDTIME 08/27/24 08/27/24 Unknown History Physical Exam Vital Signs: Last Vital Signs Temp 97.5 F 08/31/24 11:39 Pulse 90 08/31/24 11:39 Resp 18 08/31/24 11:39 BP 125/57 L 08/31/24 11:39 Pulse Ox 97 08/31/24 11:39 O2 Del Method CPAP 08/31/24 07:38 O2 Flow Rate 12 08/31/24 07:38 FiO2 60 08/31/24 07:38 Oxygen Flow Rate 5 08/27/24 19:33 BMI result Body Mass Index 33.3 Const General: ill appearing Neck Neck: Yes supple Resp Auscultation: rhonchi Cardio Palpation: no palpable S3 Heart sounds: no rubs GI Palpation (GI): Soft to palpation Auscultation: normal bowel sounds Neuro Motor exam (neuro): no asterixis Results Lab Results 09/01/24 05:42 09/01/24 05:42 Lab results: Chemistry 08/29/24 08/30/24 08/31/24 05:52 07:23 07:47 Sodium 137 136 134 L Potassium 5.5 H 4.9 5.2 H Carbon Dioxide 22 22 21 L BUN 55 H 71 H 90 H Creatinine 2.41 H 2.80 H 3.28 H Calcium 9.3 10.1 D 9.7 Hematology 08/29/24 05:52 WBC 17.0 H Hgb 10.4 L Plt Count 328 D Urinalysis 08/30/24 18:25 Urine Color Yellow Urine Appearance Clear Urine pH 5.0 Ur Specific [place] 1.015 Urine Protein 300 (3+) H Urine Glucose (UA) Negative Urine Ketones Negative Urine Blood Moderate (2+) H Urine Nitrite Negative Ur Leukocyte Esterase Negative Urine RBC 0-2 Urine WBC 0-5 Ur Squamous Epith Cells 6-10 Hyaline Casts 0-2 Urine Studies 08/30/24 18:25 Urine Creatinine 115.00 Assessment and Plan (1) NEEL (acute kidney injury): Status: Acute Plan Elderly woman with acute kidney injury in the setting of CHF/COPD. Differential diagnosis is acute kidney injury would include ATN and obstructive uropathy. Glomerular nephritis/interstitial disease seem unlikely at this point nevertheless needs to be ruled out. Clinically she appears fluid overloaded. Plan keep her in a negative fluid balance. Agree with Lasix drip. Obtain renal ultrasonogram to rule out hydronephrosis/obstruction. No absolute indication for dialysis at this time however if renal function does not improve she will be requiring renal replacement therapy. She will follow closely. Procedures Date of Service Date of Service: 09/01/24
--- NOTE | 2024-08-31 15:08 | MHC.CM.PN ---
EMR reviewed and per MD rounds, pt is not medically cleared for discharge due to management of COPD exacerbation, hypoxia, receiving IV furosemide, and NEEL.
[2024-08-31 17:50] LABS: MRSA Nasal PCR NEGATIVE (Negative); SA Nasal PCR NEGATIVE (Negative)
--- NOTE | 2024-08-31 18:41 | PC.NURSE ---
Late entry for 08/28/24 at 18:00, a warm pack was noted in place. Patient reported some relief of discomfort to L antecubital area discomfort from the warm pack. On 08/31/2024, at 16:00, reassessed L antecubital site (prior IV infiltration from 08/28/24)-L antecubital site is now without redness, no puffiness, and patient denies discomfort to L antecubital/L upper arm area. Patient reports, It feels better now . Reina Jefferson, MSN, RN, [facility] Process Controller
[2024-09-01] VITALS (10 sets, daily range): BP systolic 130–154; BP diastolic 59–67; PULSE 64–104; RESP 18–24; TEMP 36.2–36.8; O2SAT 90–98
[2024-09-01] MEDS: methylPREDNISolone Sod Succ 40 MG/ML VIAL 60 MG IVPUSH (04:42)
[2024-09-01] MEDS: Linezolid/D5W 600 MG/300 ML PIGGYBACK 300 MG IV (04:51)
[2024-09-01] MEDS: Piperacillin Sodium/Tazobactam 2.25 GM in 0.9 % Sodium Chloride 50 ML IV ×4 (04:57→22:41)
[2024-09-01] MEDS: Pantoprazole Sodium 40 MG/10 ML VIAL IVPUSH ×2 (05:39→17:36)
[2024-09-01 06:22] LABS: Mean Corpuscular Hemoglobin 23.7 pg (27.0-33.0); Mean Corpuscular Volume 79.2 fL (80.0-98.0); Mean Platelet Volume 10.3 fL (9.4-12.3); NRBC Pct Auto 0.7 /100WBC (0.0-0.2); Platelet Count 242 X10*3/uL (160-400); Red Blood Count 3.79 X10*6/uL (4.20-5.50); White Blood Count 8.7 X10*3/uL (4.8-10.8)
[2024-09-01 06:37] LABS: Alanine Aminotransferase 22 U/L (0-31); Albumin Level 3.4 g/dL (3.5-5.0); Alkaline Phosphatase 69 U/L (39-117); Anion Gap 16 (12-20); Aspartate Amino Transferase 21 U/L (5-31); Bilirubin Total 0.4 mg/dL (0.0-1.0); Blood Urea Nitrogen 95 mg/dL (9-16); Calcium 9.1 mg/dL (8.4-10.2); Carbon Dioxide 23 mmol/L (22-29); Chloride 101 mmol/L (96-108); Creatinine Clr Calc Pharmacy 13.3; Estimated Glomerular Filt Rate 14; Glucose Random 151 mg/dL (60-115); Magnesium 2.7 mg/dL (1.6-2.6); Potassium 4.3 mmol/L (3.3-5.1); Sodium 136 mmol/L (135-145)
[2024-09-01 06:42] LABS: B Type Natriuretic Peptide 556 pg/mL (<100)
[2024-09-01] MEDS: levalbuterol HCL 1.25 MG/3 ML VIAL.NEB INHALE ×4 (07:28→20:45)
[2024-09-01] MEDS: Ipratropium Bromide 0.5 MG/2.5 ML SOLUTION INHALE ×4 (07:28→20:45)
[2024-09-01 08:16] LABS: Iron 17 mcg/dL (30-160); Percent Iron Saturation 5 % (15-50); Total Iron Binding Capacity 335 mcg/dL (228-428); Unsaturated Iron Binding 318 ug/dL
[2024-09-01] MEDS: Apixaban 2.5 MG TABLET PO ×2 (08:48→19:37)
[2024-09-01] MEDS: 0.9 % Sodium Chloride Flush 3 ML SYRINGE IVFLUSH ×3 (08:48→17:40)
--- NOTE | 2024-09-01 11:35 | P.PNNP_ITS ---
Subjective Subjective Date of Service: 09/01/24 Interval history: Appears better today. Less dyspneic. Urine output has improved. Physical Exam 2 Vital Signs: Vital Signs: Last Vital Signs Temp 97.7 F 09/01/24 07:58 Pulse 85 09/01/24 11:28 Resp 19 09/01/24 11:28 BP 138/67 09/01/24 07:58 Pulse Ox 98 09/01/24 07:58 O2 Del Method Oxymask 09/01/24 07:58 O2 Flow Rate 4 09/01/24 07:58 FiO2 60 08/31/24 07:38 Oxygen Flow Rate 5 08/27/24 19:33 BMI result Body Mass Index 33.3 Const: General: ill appearing Neck: Neck: Yes supple Resp: Auscultation: rhonchi Cardio: Palpation: no palpable S3 Heart sounds: no rubs GI: Palpation (GI): Soft to palpation Auscultation: normal bowel sounds Neuro: Motor exam (neuro): no asterixis Objective Data Labs 09/01/24 05:42 09/01/24 05:42 Labs: Laboratory Results - last 24 hr 08/30/24 08/31/24 09/01/24 18:15 15:30 05:42 WBC 8.7 RBC 3.79 L Hgb 9.0 L Hct 30.0 L MCV 79.2 L MCH 23.7 L MCHC 30.0 L RDW 17.0 H Plt Count 242 D MPV 10.3 Absolute Nucleated RBC 0.060 H Nucleated RBC % (auto) 0.7 H Sodium 136 Potassium 4.3 Chloride 101 Carbon Dioxide 23 Anion Gap 16 BUN 95 H Creatinine 3.23 H Estim Creat Clear Calc 13.3 Estimated GFR 14 Random Glucose 151 H Calcium 9.1 D Magnesium 2.7 H Iron 17 L TIBC 335 % Saturation 5 L Unsat Iron Binding 318 Total Bilirubin 0.4 AST 21 ALT 22 Alkaline Phosphatase 69 B-Natriuretic Peptide 556 H Total Protein 6.0 L Albumin 3.4 L Nasal Screen MRSA (PCR) NEGATIVE Nasal S. aureus Screen NEGATIVE Nasal MRSA/S.aureus Interp SEE NOTE Respiratory Panel [place] See Note Adenovirus (Rapid PCR) Not Detected B.pert (TEM-PCR) Not Detected B.parapertussis DNA PCR Not Detected C. pneumoniae DNA (PCR) Not Detected Coronavirus OC43 (PCR) Not Detected Coronavirus HKU1 (PCR) Not Detected Coronavirus 229E (PCR) Not Detected Coronavirus NL63 (PCR) Not Detected Human Metapneumovir PCR Not Detected Influenza A (RT-PCR) Not Detected Influenza B (RT-PCR) Not Detected M. pneumoniae (PCR) Not Detected Parainfluenza 1 (PCR) Not Detected Parainfluenza 2 (PCR) Not Detected Parainfluenza 3 (PCR) Not Detected Parainfluenza 4 (PCR) Not Detected RSV (PCR) Not Detected Entero/Rhino (PCR) Not Detected SARS-CoV-2 RNA (RT-PCR) Not Detected Microbiology Microbiology Results: Microbiology 08/27/24 13:38 Blood - Venous Blood Culture - Preliminary No growth after 48 hours. 08/27/24 13:23 Blood - Venous Blood Culture - Preliminary No growth after 48 hours. Procedures Date of Service Date of Service: 09/01/24 Assessment & Plan Assessment and plan (1) NEEL (acute kidney injury): Status: Acute Plan Elderly woman with acute kidney injury in the setting of CHF/COPD. Differential diagnosis is acute kidney injury would include ATN No obstruction based on ultrasonogram. Glomerular nephritis/interstitial disease seem unlikely at this point nevertheless needs to be ruled out. Clinically she appears fluid overloaded. Plan keep her in a negative fluid balance. Agree with Lasix drip. No absolute indication for dialysis at this time however if renal function does not improve she will be requiring renal replacement therapy. She will follow closely. Time Spent With Patient Time: Total time managing care of this patient today ____ minutes. Progress Note: Quality Stroke Does the patient have a stroke diagnosis?: No
[2024-09-01] MEDS: Furosemide 200 MG in 0.9 % Sodium Chloride 80 ML IVCONT (11:53)
--- NOTE | 2024-09-01 12:03 | P.PNIM_ITS ---
Subjective Subjective Date of Service: 09/01/24 Interval History: SCr starting to come down less hypoxic, less dyspneic this morning but wheezing quite a bit later this morning Review of Systems Review of Systems: Yes all other systems are reviewed and are negative Physical Exam 2 Vital Signs: Vital Signs: Last Vital Signs Temp 97.1 F 09/01/24 11:46 Pulse 64 09/01/24 11:46 Resp 20 09/01/24 11:46 BP 154/67 H 09/01/24 11:46 Pulse Ox 94 09/01/24 11:46 O2 Del Method CPAP 09/01/24 11:46 O2 Flow Rate 4 09/01/24 07:58 FiO2 60 08/31/24 07:38 Oxygen Flow Rate 5 08/27/24 19:33 BMI result Body Mass Index 33.3 Gen: NAD HEENT: sclera anicteric, moist mucus membranes Neck: supple Lungs: diminished, bilateral wheezing Heart: normal rate, irregular, no murmurs Abd: soft, non-tender, non-distended Ext: 1+ BLE edema Skin: warm/well-perfused Neuro: alert and oriented x3, no focal findings Psych: appropriate affect Objective Data Active Medications Acetaminophen (Acetaminophen 325 Mg Tablet) 650 mg PO Q6H PRN PRN Reason: Pain, Mild 1-3,fever,headache Apixaban (Apixaban 2.5 Mg Tablet) 2.5 mg PO BID [facility] Last Admin: 09/01/24 08:48 Dose: 2.5 mg Documented By: ALEXANDRO Brimonidine Tartrate (Brimonidine Tartrate 0.2% Oph 5 Ml Bottle) 1 drop EYE- BOTH TID [facility] Last Admin: 08/31/24 22:12 Dose: 1 drop Documented By: KULWINDER Calcium Carbonate (Calcium Carbonate 750 Mg Tab.Chew) 750 mg PO Q4H PRN PRN Reason: Heartburn Last Admin: 08/30/24 09:36 Dose: 750 mg Documented By: JONAS Gabapentin (Gabapentin 100 Mg Capsule) 100 mg PO BID PRN PRN Reason: Pain, Moderate(Pain Scale 4-6) Piperacillin Sod/Tazobactam (Sod 2.25 gm/ Sodium Chloride) 50 mls @ 100 mls/hr IV Q6H [facility] Last Infusion: 09/01/24 05:27 Dose: Infused Documented By: KULWINDER Furosemide 200 mg/ Sodium (Chloride) 100 mls @ 2.5 mls/hr IVCONT .Q24H [facility] Last Admin: 08/31/24 10:56 Dose: 5 mg/hr, 2.5 mls/hr Documented By: GAGE Ipratropium Scribner (Ipratropium Scribner 0.5 Mg/2.5 Ml Solution) 0.5 mg INHALE RQ4H WHILE AWAKE [facility] Last Admin: 09/01/24 11:23 Dose: 0.5 mg Documented By: DONA Levalbuterol HCl (Levalbuterol Hcl 1.25 Mg/3 Ml Vial.Neb) 1.25 mg INHALE Q2H PRN PRN Reason: Shortness of Breath/Wheezing Levalbuterol HCl (Levalbuterol Hcl 1.25 Mg/3 Ml Vial.Neb) 1.25 mg INHALE RQ4H WHILE AWAKE [facility] Last Admin: 09/01/24 11:23 Dose: 1.25 mg Documented By: DONA Magnesium Hydroxide (Milk Of Magnesia 30 Ml Oral.Susp) 30 ml PO DAILY PRN PRN Reason: Constipation Melatonin (Melatonin 3 Mg Tablet) 6 mg PO BEDTIME PRN PRN Reason: Insomnia Methylprednisolone Sodium Succinate (Methylprednisolone Sod Succ 40 Mg/Ml Vial) 40 mg IVPUSH Q12H [facility] Nicotine Polacrilex (Nicotine Polacrilex Lozenge 2 Mg Lozenge) 2 mg BUCCAL Q2H PRN PRN Reason: Nicotine Cravings Pantoprazole Sodium (Pantoprazole Sodium 40 Mg/10 Ml Vial) 40 mg IVPUSH BID@0630,1630 [facility] Last Admin: 09/01/24 05:39 Dose: 40 mg Documented By: KULWINDER Sodium Chloride (0.9 % Sodium Chloride Flush 3 Ml Syringe) 3 ml IVFLUSH QSHIFT [facility] Last Admin: 09/01/24 08:48 Dose: 3 ml Documented By: ALEXANDRO Labs 09/01/24 05:42 09/01/24 05:42 Labs: Laboratory Results - last 24 hr 08/30/24 08/31/24 09/01/24 18:15 15:30 05:42 MCV 79.2 L MCH 23.7 L MCHC 30.0 L RDW 17.0 H Plt Count 242 D MPV 10.3 Absolute Nucleated RBC 0.060 H Nucleated RBC % (auto) 0.7 H Anion Gap 16 Estim Creat Clear Calc 13.3 Estimated GFR 14 Random Glucose 151 H Calcium 9.1 D Magnesium 2.7 H Iron 17 L TIBC 335 % Saturation 5 L Unsat Iron Binding 318 Total Bilirubin 0.4 AST 21 ALT 22 Alkaline Phosphatase 69 B-Natriuretic Peptide 556 H Total Protein 6.0 L Albumin 3.4 L Nasal Screen MRSA (PCR) NEGATIVE Nasal S. aureus Screen NEGATIVE Nasal MRSA/S.aureus Interp SEE NOTE Respiratory Panel Stevens See Note Adenovirus (Rapid PCR) Not Detected B.pert (TEM-PCR) Not Detected B.parapertussis DNA PCR Not Detected C. pneumoniae DNA (PCR) Not Detected Coronavirus OC43 (PCR) Not Detected Coronavirus HKU1 (PCR) Not Detected Coronavirus 229E (PCR) Not Detected Coronavirus NL63 (PCR) Not Detected Human Metapneumovir PCR Not Detected Influenza A (RT-PCR) Not Detected Influenza B (RT-PCR) Not Detected M. pneumoniae (PCR) Not Detected Parainfluenza 1 (PCR) Not Detected Parainfluenza 2 (PCR) Not Detected Parainfluenza 3 (PCR) Not Detected Parainfluenza 4 (PCR) Not Detected RSV (PCR) Not Detected Entero/Rhino (PCR) Not Detected SARS-CoV-2 RNA (RT-PCR) Not Detected Assessment and Plan (1) Atrial fibrillation with RVR: Status: Acute (2) Acute congestive heart failure: Status: Acute Plan d6 for 80yo F with tobacco abuse, HTN, CAD presenting with 1 wk of dyspnea + productive sputum, found to have AF/RVR [new onset] acute-chronic biventricular HF - Furosemide was held 08/29 due to NEEL but SCr continued to worsen and pt was clearly volume overloaded, so started furosemide IV infusion 5 mg/d 08/31. Cardiology following. - TTE 08/28/24: - Visually estimated LVEF about 40%. - There is moderate to severe tricuspid valve regurgitation. - Moderate pulmonary hypertension is present. COPD exacerbation - 08/28- methylprednisolone, increased 08/30 to 60 mg q8h, decrease today to 40 mg q12h - standing/prn nebs PNA - 08/27-08/30 ceftriaxone + azithromycin; changed to piperacillin-tazobactam and linezolid 08/30, MRSA swab negative so linezolid discontinued 09/01 acute hypoxic respiratory failure - wean O2 as tolerated, treat causes as above NEEL - likely cardiorenal- discussed with Nephrology and Cardiology. Started furosemide drip as above. Renal US without hydronephrosis AF/RVR - now controlled off diltiazem gtt. Stopped PO diltiazem per Cardiology. No beta-blockers given COPD. If needed, can give 1-time dose digoxin 250 mcg per Cardiology - apixaban for anticoagulation hyperK, mild - resolved p 1 dose SZC tobacco abuse - NRT, counseling VTE ppx - apixaban dispo - TBD, likely needs STR In my clinical judgment, the patient requires continued inpatient hospitalization for the following reasons: hypoxia, IV furosemide, NELE Total time managing care of this patient today: 50 minutes. Quality Stroke Does the patient have a stroke diagnosis?: No VTE Prior VTE?: No VTE Risk Level:: Medical - moderate - high VTE Device Contraindication: Treatment Not Indicated VTE Drug Contraindication: N/A - Med Ordered
--- NOTE | 2024-09-01 15:39 | PM.PNCARD ---
Subjective Subjective Date of Service: 09/01/24 Interval history: Seen and examined at bedside. On facemask and wheezing. Saying that breathing is better. Physical Exam Vital Signs: Last Vital Signs Temp 97.5 F 09/01/24 15:32 Pulse 84 09/01/24 15:34 Resp 18 09/01/24 15:34 BP 130/67 09/01/24 15:32 Pulse Ox 92 09/01/24 15:32 O2 Del Method Oxymask 09/01/24 15:32 O2 Flow Rate 5 09/01/24 15:32 FiO2 60 08/31/24 07:38 Oxygen Flow Rate 5 08/27/24 19:33 BMI result Body Mass Index 33.3 GENERAL APPEARANCE: On face mask. Short of breath. Wheezing. NECK: no carotid bruit, positive jugular venous distention. SKIN: no suspicious lesions, warm and dry. HEART: no murmurs, irregular rate and rhythm. LUNGS: Bilateral expiratory wheezes with crackles at bases. ABDOMEN: soft, nontender. EXTREMITIES: + edema. PERIPHERAL PULSES: equal. NEUROLOGIC: No gross deficits, AAO X 3 Objective Labs and Meds 09/01/24 05:42 09/01/24 05:42 Lab results: Laboratory Results - last 24 hr 08/31/24 09/01/24 15:30 05:42 WBC 8.7 RBC 3.79 L Hgb 9.0 L Hct 30.0 L MCV 79.2 L MCH 23.7 L MCHC 30.0 L RDW 17.0 H Plt Count 242 D MPV 10.3 Absolute Nucleated RBC 0.060 H Nucleated RBC % (auto) 0.7 H Sodium 136 Potassium 4.3 Chloride 101 Carbon Dioxide 23 Anion Gap 16 BUN 95 H Creatinine 3.23 H Estim Creat Clear Calc 13.3 Estimated GFR 14 Random Glucose 151 H Calcium 9.1 D Magnesium 2.7 H Iron 17 L TIBC 335 % Saturation 5 L Unsat Iron Binding 318 Total Bilirubin 0.4 AST 21 ALT 22 Alkaline Phosphatase 69 B-Natriuretic Peptide 556 H Total Protein 6.0 L Albumin 3.4 L Nasal Screen MRSA (PCR) NEGATIVE Nasal S. aureus Screen NEGATIVE Nasal MRSA/S.aureus Interp SEE NOTE Imaging Radiologist's impression: Impressions Renal Ultrasound 08/31/24 15:00 IMPRESSION: 1. No hydronephrosis of either kidney. 2. Simple cyst lower pole right kidney measuring 5.0 cm. 3. Incidental note made of large intraluminal gallstone, and moderate size left pleural effusion. Electronically signed by: Tong Manuel MD 08/31/2024 03:58 PM [facility] Progress Note: A&P Assessment and plan (1) NEEL (acute kidney injury): Status: Acute (2) Acute congestive heart failure: Status: Acute (3) Atrial fibrillation with RVR: Status: Acute Plan 88-year-old female who is presenting with atrial fibrillation and shortness of breath. She was wheezing and there was some concern about pneumonia and she is on broad-spectrum antibiotics. She was started on Cardizem for rate control but it appears that she had progressive kidney injury. Clinically she is volume overloaded. Diltiazem has been discontinued. We should not use this drug again in her. Increasing the Lasix drip to 10 milligram/hour after an 80 mg bolus. If she does not make urine with that then we may have to give her some Diuril IV. Advanced age and multiple issues. Prognosis is guarded. She should have a goals of care discussion. Thank you for allowing me to participate in the care of your patient. Please feel free to contact me if you have any questions. Time Spent With Patient Time: Total time managing care of this patient today ____ minutes. Progress Note: Quality Stroke Does the patient have a stroke diagnosis?: No Procedures Date of Service Date of Service: 09/01/24
[2024-09-01] MEDS: Furosemide 100 MG/10 ML VIAL 80 MG IVPUSH (15:56)
[2024-09-01] MEDS: Brimonidine Tartrate 0.2% Oph 5 ML BOTTLE 1 DROP EYE-BOTH ×2 (15:59→20:06)
[2024-09-01] MEDS: methylPREDNISolone Sod Succ 40 MG/ML VIAL IVPUSH (17:36)
[2024-09-01] MEDS: Chlorothiazide Sodium 500 MG VIAL IVPUSH (18:46)
[2024-09-01] MEDS: Gabapentin 100 MG CAPSULE PO (19:37)
[2024-09-02] VITALS (10 sets, daily range): BP systolic 141–168; BP diastolic 60–84; PULSE 79–140; RESP 14–20; TEMP 36.2–36.7; O2SAT 77–99
[2024-09-02] MEDS: methylPREDNISolone Sod Succ 40 MG/ML VIAL IVPUSH ×2 (04:31→17:42)
[2024-09-02] MEDS: Piperacillin Sodium/Tazobactam 2.25 GM in 0.9 % Sodium Chloride 50 ML IV ×4 (04:31→22:36)
[2024-09-02] MEDS: Pantoprazole Sodium 40 MG/10 ML VIAL IVPUSH ×2 (05:31→17:42)
[2024-09-02 07:02] LABS: Anion Gap 19 (12-20); Blood Urea Nitrogen 102 mg/dL (9-16); Calcium 9.4 mg/dL (8.4-10.2); Carbon Dioxide 25 mmol/L (22-29); Chloride 99 mmol/L (96-108); Creatinine Clr Calc Pharmacy 13.6; Estimated Glomerular Filt Rate 14; Glucose Random 127 mg/dL (60-115); Magnesium 2.7 mg/dL (1.6-2.6); Potassium 3.5 mmol/L (3.3-5.1); Sodium 139 mmol/L (135-145)
[2024-09-02 07:06] LABS: B Type Natriuretic Peptide 636 pg/mL (<100)
[2024-09-02] MEDS: levalbuterol HCL 1.25 MG/3 ML VIAL.NEB INHALE ×3 (08:15→20:27)
[2024-09-02] MEDS: Ipratropium Bromide 0.5 MG/2.5 ML SOLUTION INHALE ×3 (08:15→20:27)
[2024-09-02] MEDS: Brimonidine Tartrate 0.2% Oph 5 ML BOTTLE 1 DROP EYE-BOTH ×2 (09:00→22:36)
[2024-09-02] MEDS: Ferrous Sulfate 324 MG TABLET.DR PO (09:00)
[2024-09-02] MEDS: Apixaban 2.5 MG TABLET PO (09:00)
[2024-09-02] MEDS: 0.9 % Sodium Chloride Flush 3 ML SYRINGE IVFLUSH (09:02)
--- NOTE | 2024-09-02 10:19 | PM.PNCARD ---
Subjective Subjective Date of Service: 09/02/24 Interval history: Seen and examined at bedside. Looks more awake and breathing better. Diuresing well with Lasix drip and Diuril Physical Exam Vital Signs: Last Vital Signs Temp 97.2 F 09/02/24 08:00 Pulse 79 09/02/24 08:18 Resp 18 09/02/24 08:18 BP 157/84 H 09/02/24 08:00 Pulse Ox 99 09/02/24 08:00 O2 Del Method Oxymask 09/02/24 08:00 O2 Flow Rate 4 09/02/24 08:00 FiO2 60 08/31/24 07:38 Oxygen Flow Rate 5 08/27/24 19:33 BMI result Body Mass Index 33.3 GENERAL APPEARANCE: On face mask. Less short of breath. NECK: no carotid bruit, positive jugular venous distention. SKIN: no suspicious lesions, warm and dry. HEART: no murmurs, irregular rate and rhythm. LUNGS: Bilateral expiratory wheezes with crackles at bases. ABDOMEN: soft, nontender. EXTREMITIES: + edema. PERIPHERAL PULSES: equal. NEUROLOGIC: No gross deficits, AAO X 3 Objective Labs and Meds 09/01/24 05:42 09/02/24 05:54 Lab results: Laboratory Results - last 24 hr 09/02/24 05:54 Sodium 139 Potassium 3.5 Chloride 99 Carbon Dioxide 25 Anion Gap 19 BUN 102 H Creatinine 3.18 H Estim Creat Clear Calc 13.6 Estimated GFR 14 Random Glucose 127 H Calcium 9.4 Magnesium 2.7 H B-Natriuretic Peptide 636 H Progress Note: A&P Assessment and plan (1) NEEL (acute kidney injury): Status: Acute (2) Acute congestive heart failure: Status: Acute (3) Atrial fibrillation with RVR: Status: Acute Plan 88-year-old female who is presenting with atrial fibrillation and shortness of breath. She was wheezing and there was some concern about pneumonia and she is on broad-spectrum antibiotics. She was started on Cardizem for rate control but it appears that she had progressive kidney injury. Clinically she is volume overloaded. Diltiazem has been discontinued. We should not use this drug again in her. Diuresing better with the increase in Lasix drip to 10 milligram/hour and bolus dose of Diuril. We will give another 500 mg of Diuril today. Overall she is turning the corner and improving today. I think we should continue diurese her because she appears significantly overloaded and definitely heart failure is playing a major role in her shortness of breath and wheezing. For atrial fibrillation avoid Cardizem and avoid IV beta-blockers. Giving her digoxin 250 mcg x 1. He potassium stays stable then we can try digoxin 125 mcg Saturday. As she diuresis further would consider adding some oral beta-blockers. Thank you for allowing me to participate in the care of your patient. Please feel free to contact me if you have any questions. Time Spent With Patient Time: Total time managing care of this patient today ____ minutes. Progress Note: Quality Stroke Does the patient have a stroke diagnosis?: No Procedures Date of Service Date of Service: 09/02/24
[2024-09-02] MEDS: Furosemide 200 MG in 0.9 % Sodium Chloride 80 ML IVCONT (10:31)
--- NOTE | 2024-09-02 10:49 | HO.PM.IMPN ---
Subjective Subjective Date of Service: 09/02/24 Interval History: breathing improved diuresing well on Lasix drip SCr slightly improved Review of Systems Review of Systems: Yes all other systems are reviewed and are negative Physical Exam Vital Signs: Vital Signs: Last Vital Signs Temp 97.2 F 09/02/24 08:00 Pulse 79 09/02/24 08:18 Resp 18 09/02/24 08:18 BP 157/84 H 09/02/24 08:00 Pulse Ox 99 09/02/24 08:00 O2 Del Method Oxymask 09/02/24 08:00 O2 Flow Rate 4 09/02/24 08:00 FiO2 60 08/31/24 07:38 Oxygen Flow Rate 5 08/27/24 19:33 BMI result Body Mass Index 33.3 Gen: NAD HEENT: sclera anicteric, moist mucus membranes Neck: supple, JVD Lungs: diminished, bilateral wheezing Heart: normal rate, irregular, no murmurs Abd: soft, non-tender, non-distended Ext: 1+ BLE edema Skin: warm/well-perfused Neuro: alert and oriented x3, no focal findings Psych: appropriate affect Objective Data Active Medications Acetaminophen (Acetaminophen 325 Mg Tablet) 650 mg PO Q6H PRN PRN Reason: Pain, Mild 1-3,fever,headache Apixaban (Apixaban 2.5 Mg Tablet) 2.5 mg PO BID [facility] Last Admin: 09/02/24 09:00 Dose: 2.5 mg Documented By: OLIVE Brimonidine Tartrate (Brimonidine Tartrate 0.2% Oph 5 Ml Bottle) 1 drop EYE-BOTH TID [facility] Last Admin: 09/02/24 09:00 Dose: 1 drop Documented By: OLIVE Calcium Carbonate (Calcium Carbonate 750 Mg Tab.Chew) 750 mg PO Q4H PRN PRN Reason: Heartburn Last Admin: 08/30/24 09:36 Dose: 750 mg Documented By: JONAS Ferrous Sulfate (Ferrous Sulfate 324 Mg Tablet.Dr) 324 mg PO DAILY [facility] Last Admin: 09/02/24 09:00 Dose: 324 mg Documented By: OLIVE Gabapentin (Gabapentin 100 Mg Capsule) 100 mg PO BID PRN PRN Reason: Pain, Moderate(Pain Scale 4-6) Last Admin: 09/01/24 19:37 Dose: 100 mg Documented By: ARIANNA Piperacillin Sod/Tazobactam (Sod 2.25 gm/ Sodium Chloride) 50 mls @ 100 mls/hr IV Q6H [facility] Last Admin: 09/02/24 10:30 Dose: 100 mls/hr Documented By: ROS Furosemide 200 mg/ Sodium (Chloride) 100 mls @ 5 mls/hr IVCONT .Q20H [facility] Last Admin: 09/02/24 10:31 Dose: 10 mg/hr, 5 mls/hr Documented By: ROS Ipratropium Mccool (Ipratropium Mccool 0.5 Mg/2.5 Ml Solution) 0.5 mg INHALE RQ4H WHILE AWAKE [facility] Last Admin: 09/02/24 08:15 Dose: 0.5 mg Documented By: DONA Levalbuterol HCl (Levalbuterol Hcl 1.25 Mg/3 Ml Vial.Neb) 1.25 mg INHALE Q2H PRN PRN Reason: Shortness of Breath/Wheezing Levalbuterol HCl (Levalbuterol Hcl 1.25 Mg/3 Ml Vial.Neb) 1.25 mg INHALE RQ4H WHILE AWAKE [facility] Last Admin: 09/02/24 08:15 Dose: 1.25 mg Documented By: DONA Magnesium Hydroxide (Milk Of Magnesia 30 Ml Oral.Susp) 30 ml PO DAILY PRN PRN Reason: Constipation Melatonin (Melatonin 3 Mg Tablet) 6 mg PO BEDTIME PRN PRN Reason: Insomnia Methylprednisolone Sodium Succinate (Methylprednisolone Sod Succ 40 Mg/Ml Vial) 40 mg IVPUSH Q12H [facility] Last Admin: 09/02/24 04:31 Dose: 40 mg Documented By: ARIANNA Nicotine Polacrilex (Nicotine Polacrilex Lozenge 2 Mg Lozenge) 2 mg BUCCAL Q2H PRN PRN Reason: Nicotine Cravings Pantoprazole Sodium (Pantoprazole Sodium 40 Mg/10 Ml Vial) 40 mg IVPUSH BID@0630,1630 [facility] Last Admin: 09/02/24 05:31 Dose: 40 mg Documented By: ARIANNA Sodium Chloride (0.9 % Sodium Chloride Flush 3 Ml Syringe) 3 ml IVFLUSH QSHIFT [facility] Last Admin: 09/02/24 09:02 Dose: 3 ml Documented By: HO.RUANES Labs 09/01/24 05:42 09/02/24 05:54 Labs: Laboratory Results - last 24 hr 09/02/24 05:54 Anion Gap 19 Estim Creat Clear Calc 13.6 Estimated GFR 14 Random Glucose 127 H Calcium 9.4 Magnesium 2.7 H B-Natriuretic Peptide 636 H Microbiology Microbiology Results: Microbiology 08/27/24 13:38 Blood Culture - Final Blood - Venous No growth after 5 days. 08/27/24 13:23 Blood Culture - Final Blood - Venous No growth after 5 days. Assessment and Plan (1) Atrial fibrillation with RVR: Status: Acute (2) Acute congestive heart failure: Status: Acute Plan d7 for 80yo F with tobacco abuse, HTN, CAD presenting with 1 wk of dyspnea + productive sputum, found to have AF/RVR [new onset] acute-chronic biventricular HF - Furosemide was held 08/29 due to NEEL but SCr continued to worsen and pt was clearly volume overloaded, so started furosemide IV infusion 5 mg/hr 08/31. Increased to 10 mg/hr 09/01. Cardiology following. - TTE 08/28/24: - Visually estimated LVEF about 40%. - There is moderate to severe tricuspid valve regurgitation. - Moderate pulmonary hypertension is present. COPD exacerbation - 08/28- methylprednisolone, increased 08/30 to 60 mg q8h, decreased to 40 mg q12h 09/01 - standing/prn nebs PNA - 08/27-08/30 ceftriaxone + azithromycin; changed to piperacillin-tazobactam and linezolid 08/30, MRSA swab negative so linezolid discontinued 09/01, d/c piperacillin-tazobactam if continues to improve 09/03 acute hypoxic respiratory failure - wean O2 as tolerated, treat causes as above NEEL - likely cardiorenal- discussed with Nephrology and Cardiology. Started furosemide drip as above. Renal US without hydronephrosis AF/RVR - now controlled off diltiazem gtt. Stopped PO diltiazem per Cardiology. No beta-blockers given COPD. If needed, can give 1-time dose digoxin 250 mcg per Cardiology - apixaban for anticoagulation hyperK, mild - resolved p 1 dose SZC tobacco abuse - NRT, counseling VTE ppx - apixaban dispo - TBD, likely needs STR In my clinical judgment, the patient requires continued inpatient hospitalization for the following reasons: hypoxia, IV furosemide, NEEL Total time managing care of this patient today: 45 minutes. Quality Stroke Does the patient have a stroke diagnosis?: No VTE Prior VTE?: No VTE Risk Level:: Medical - moderate - high VTE Device Contraindication: Treatment Not Indicated VTE Drug Contraindication: N/A - Med Ordered
--- NOTE | 2024-09-02 11:49 | MHC.CM.PN ---
EMR reviewed and per MD rounds, pt is not medically cleared for discharge due to management of hypoxia, and NEEL, pt is receiving a lasix IV gtt. This CM spoke with pts son/HCP Booker and provided an updated to him to let him know once she is medically ready we will have PT evaluate her and then we can plan for her discharge but it will likely be for STR.
--- NOTE | 2024-09-02 12:24 | P.PNNP_ITS ---
Subjective Subjective Date of Service: 09/02/24 Interval history: Overall she is improving. Nonoliguric Physical Exam 2 Vital Signs: Vital Signs: Last Vital Signs Temp 97.2 F 09/02/24 08:00 Pulse 79 09/02/24 08:18 Resp 18 09/02/24 08:18 BP 157/84 H 09/02/24 08:00 Pulse Ox 99 09/02/24 08:00 O2 Del Method Oxymask 09/02/24 08:00 O2 Flow Rate 4 09/02/24 08:00 FiO2 60 08/31/24 07:38 Oxygen Flow Rate 5 08/27/24 19:33 BMI result Body Mass Index 33.3 Const: General: ill appearing Neck: Neck: Yes supple Resp: Auscultation: rhonchi Cardio: Palpation: no palpable S3 Heart sounds: no rubs GI: Palpation (GI): Soft to palpation Auscultation: normal bowel sounds Neuro: Motor exam (neuro): no asterixis Objective Data Labs 09/01/24 05:42 09/03/24 07:24 Labs: Laboratory Results - last 24 hr 09/02/24 05:54 Sodium 139 Potassium 3.5 Chloride 99 Carbon Dioxide 25 Anion Gap 19 BUN 102 H Creatinine 3.18 H Estim Creat Clear Calc 13.6 Estimated GFR 14 Random Glucose 127 H Calcium 9.4 Magnesium 2.7 H B-Natriuretic Peptide 636 H Microbiology Microbiology Results: Microbiology 08/27/24 13:38 Blood - Venous Blood Culture - Final No growth after 5 days. 08/27/24 13:23 Blood - Venous Blood Culture - Final No growth after 5 days. Procedures Date of Service Date of Service: 09/03/24 Assessment & Plan Assessment and plan (1) NEEL (acute kidney injury): Status: Acute Plan Elderly woman with acute kidney injury in the setting of CHF/COPD. Differential diagnosis is acute kidney injury would include ATN No obstruction based on ultrasonogram. Glomerular nephritis/interstitial disease seem unlikely at this point nevertheless needs to be ruled out. Clinically she appears fluid overloaded. Plan keep her in a negative fluid balance. Agree with Lasix drip. Keep on Lasix drip for next 24-48 hours and reassess No absolute indication for dialysis at this time will follow closely. Time Spent With Patient Time: Total time managing care of this patient today ____ minutes. Progress Note: Quality Stroke Does the patient have a stroke diagnosis?: No
--- NOTE | 2024-09-02 13:41 | MHC.CLN ---
F/U PT WITH INCREASED NUTRITION RISK R/T PRESSURE INJURY PO INTAKE 50-100% DIET REGULAR -APPROPRIATE RECEIVING ADDING MAGIC CUP TO PROMOTE WOUND HEALING SUPP TO PROVIDE 870KCALS, 27G PROTEIN MONITOR PO INTAKE AND ENCOURAGE SUPPLEMENT
--- NOTE | 2024-09-02 13:48 | P.DS_ITS ---
DS: Providers Provider Date of Service: 09/02/24 Date of admission: 08/27/24 15:47 Primary care physician: Irving Meneses MD Consults: 08/27/24 14:10 Consult to Cardiology Stat Consulting Provider: [facility] Reason for consultation: atrial fib w/RVR, new Afib, elevated trop. Has provider been notified: Yes 08/27/24 23:29 Consult to Wound Care Routine Reason for consultation: stage II to coccyx present on admission 08/30/24 08:31 Consult to Nephrology Routine Consulting Provider: [facility] Reason for consultation: NEEL? overdiuresis vs cardiorenal? DS: Diagnosis Discharge Diagnosis (1) NEEL (acute kidney injury): Status: Acute (2) Cardiorenal syndrome: Status: Acute (3) Biventricular heart failure: Status: Acute (4) COPD exacerbation: Status: Acute (5) Acute respiratory failure with hypoxia: Status: Acute (6) Pneumonia: Status: Acute (7) Atrial fibrillation with rapid ventricular response: Status: Acute DS: Summary Hospital Course Hospital Course: From the history and physical by the admitting hospitalist, Mihai Reynolds, 08/27/24: 88 year old female with a history of tobacco use, cognitive decline, HTN, and an DE in early with stents presenting to the emergency department today with shortness of breath. Patient states that over the last 3 days she has had worsening shortness of breath and difficulty breathing. Continues to smoke approximately 1 pack a day; states over the last 3 days the shortness of breath has been accompanied by a productive cough and today became such that she could not walk across the room without stopping.. In our workup consistent with acute CHF which is new along with AFib with a rapid ventricular response. She received bolus Cardize dosing with placed on a drip. She did have some work of breathing and was placed on CPAP with good results. Admission was requested 80yo F with tobacco abuse, HTN, CAD presenting with 1 wk of dyspnea + productive sputum, found to have AF/RVR [new onset] and admitted to the telemetry unit. Hospital course by problem: acute-chronic biventricular HF - She was initially diuresed with furosemide, but this was held 08/29 due to worsening NEEL for concern of prerenal azotemia. However, SCr continued to worsen and pt was clearly volume overloaded, so started furosemide IV infusion 5 mg/hr 08/31 in consultation with Nephrology and Cardiology for concern of cardiorenal syndrome. Increased to 10 mg/hr 09/01 and got a dose of IV chlorthalidone 09/02. The patient's volume status, respiratory status, and renal function improved. - TTE 08/28/24: - Visually estimated LVEF about 40%. - There is moderate to severe tricuspid valve regurgitation. - Moderate pulmonary hypertension is present. COPD exacerbation - Treated with 08/28- methylprednisolone, increased 08/30 to 60 mg q8h, decreased to 40 mg q12h 09/01 PNA - 08/27-08/30 ceftriaxone + azithromycin; changed to piperacillin-tazobactam and linezolid 08/30, MRSA swab negative so linezolid discontinued 09/01. Completed piperacillin-tazobactam 09/03. acute hypoxic respiratory failure - Weaned O2 as the above issues were treated. NEEL - Likely cardiorenal- discussed with Nephrology and Cardiology. Started furosemide drip as above. Renal US without hydronephrosis. SCr peaked at 3.28 and came down to ____. AF/RVR - Initially treated with diltiazem drip, then PO diltiazem, but stopped per Cardiology given HF. No beta-blockers given COPD. Rate improved with treatment of heart failure. Started on apixaban for anticoagulation She was discharged to ___. Physical Exam Vital Signs: Vital Signs: Last Vital Signs Temp 97.8 F 09/02/24 12:00 Pulse 93 09/02/24 12:23 Resp 20 09/02/24 12:23 BP 141/60 H 09/02/24 12:00 Pulse Ox 94 09/02/24 12:00 O2 Del Method Oxymask 09/02/24 12:00 O2 Flow Rate 4 09/02/24 08:00 FiO2 60 08/31/24 07:38 Oxygen Flow Rate 5 08/27/24 19:33 BMI result Body Mass Index 33.3 Gen: NAD HEENT: sclera anicteric, moist mucus membranes Neck: supple, JVD Lungs: diminished, bilateral wheezing Heart: normal rate, irregular, no murmurs Abd: soft, non-tender, non-distended Ext: 1+ BLE edema Skin: warm/well-perfused Neuro: alert and oriented x3, no focal findings Psych: appropriate affect DS: Data Data Completed and Pending Completed studies during hospitalization [Text1]: Laboratory Results WBC 8.7 X10*3/uL (4.8-10.8) 09/01/24 05:42 RBC 3.79 X10*6/uL (4.20-5.50) L 09/01/24 05:42 Hgb 9.0 g/dl (12.0-16.0) L 09/01/24 05:42 Hct 30.0 % (37.0-47.0) L 09/01/24 05:42 MCV 79.2 fL (80.0-98.0) L 09/01/24 05:42 MCH 23.7 pg (27.0-33.0) L 09/01/24 05:42 MCHC 30.0 g/dl (31.0-35.0) L 09/01/24 05:42 RDW 17.0 % (11.0-16.0) H 09/01/24 05:42 Plt Count 242 X10*3/uL (160-400) D 09/01/24 05:42 MPV 10.3 fL (9.4-12.3) 09/01/24 05:42 Immature Gran % (Auto) 0.6 % (0.0-0.4) H 08/29/24 05:52 Neut % (Auto) 91.7 % (45-73) H 08/29/24 05:52 Lymph % (Auto) 4.5 % (20-40) L 08/29/24 05:52 [place] % (Auto) 3.1 % (2-11) 08/29/24 05:52 Eos % (Auto) 0.0 % (0-4) 08/29/24 05:52 Baso % (Auto) 0.1 % (0-2) 08/29/24 05:52 Lymph # (Auto) 0.8 X10*3/uL (1.2-4.9) L 08/29/24 05:52 [place] # (Auto) 0.5 X10*3/uL (0.1-1.2) 08/29/24 05:52 Eos # (Auto) 0.0 X10*3/uL (0.0-0.4) 08/29/24 05:52 Baso # (Auto) 0.0 X10*3/uL (0.0-0.2) 08/29/24 05:52 Abs Immat Gran (auto) 0.11 X10*3/uL (0.00-0.03) H 08/29/24 05:52 Absolute Neuts (auto) 15.5 x10*3/uL (2.0-8.3) H 08/29/24 05:52 Absolute Nucleated RBC 0.060 X10*3/uL (0.0-0.012) H 09/01/24 05:42 Nucleated RBC % (auto) 0.7 /100WBC (0.0-0.2) H 09/01/24 05:42 Smear Tech's Comments VERIFIED 08/29/24 05:52 PT 13.2 SEC (10.9-12.4) H 08/27/24 13:24 INR 1.1 (0.9-1.1) 08/27/24 13:24 APTT 29.4 SEC (26.0-36.8) 08/27/24 13:24 VBG pH 7.25 (7.32-7.43) L 08/31/24 07:45 VBG pCO2 54 mmHg 08/31/24 07:45 VBG pO2 46 mmHg 08/31/24 07:45 VBG HCO3 24 mmol/L (22-26) 08/31/24 07:45 VBG O2 Saturation 69.0 % 08/31/24 07:45 VBG Base Excess -3.2 mmol/L 08/31/24 07:45 Sodium 139 mmol/L (135-145) 09/02/24 05:54 Potassium 3.5 mmol/L (3.3-5.1) 09/02/24 05:54 Chloride 99 mmol/L (96-108) 09/02/24 05:54 Carbon Dioxide 25 mmol/L (22-29) 09/02/24 05:54 Anion Gap 19 (12-20) 09/02/24 05:54 BUN 102 mg/dL (9-16) H 09/02/24 05:54 Creatinine 3.18 mg/dL (0.5-1.4) H 09/02/24 05:54 Estim Creat Clear Calc 13.6 09/02/24 05:54 Estimated GFR 14 09/02/24 05:54 Random Glucose 127 mg/dL (60-115) H 09/02/24 05:54 Fasting Glucose 147 mg/dL (60-99) H 08/29/24 05:52 Lactic Acid 1.3 mmol/L (0.5-2.0) 08/27/24 13:23 Calcium 9.4 mg/dL (8.4-10.2) 09/02/24 05:54 Magnesium 2.7 mg/dL (1.6-2.6) H 09/02/24 05:54 Iron 17 mcg/dL (30-160) L 09/01/24 05:42 TIBC 335 mcg/dL (228-428) 09/01/24 05:42 % Saturation 5 % (15-50) L 09/01/24 05:42 Unsat Iron Binding 318 ug/dL 09/01/24 05:42 Total Bilirubin 0.4 mg/dL (0.0-1.0) 09/01/24 05:42 AST 21 U/L (5-31) 09/01/24 05:42 ALT 22 U/L (0-31) 09/01/24 05:42 Alkaline Phosphatase 69 U/L (39-117) 09/01/24 05:42 Total Creatine Kinase 35 U/L (26-140) 08/31/24 07:47 Troponin I High Sens 57.7 ng/L (<3.5-17.0) H* 08/27/24 16:04 B-Natriuretic Peptide 636 pg/mL (<100) H 09/02/24 05:54 Total Protein 6.0 g/dL (6.5-8.0) L 09/01/24 05:42 Albumin 3.4 g/dL (3.5-5.0) L 09/01/24 05:42 Procalcitonin 0.08 ng/mL 08/31/24 07:47 Urine Color Yellow 08/30/24 18:25 Urine Appearance Clear 08/30/24 18:25 Urine pH 5.0 (5.0-9.0) 08/30/24 18:25 Ur Specific Melvin 1.015 (1.005-1.025) 08/30/24 18:25 Urine Protein 300 (3+) mg/dL (Neg-Trace) H 08/30/24 18:25 Urine Glucose (UA) Negative mg/dL (Negative) 08/30/24 18:25 Urine Ketones Negative mg/dL (Negative) 08/30/24 18: Urine Blood Moderate (2+) (Negative) H 08/30/24 18:25 Urine Nitrite Negative (Negative) 08/30/24 18:25 Ur Leukocyte Esterase Negative (Negative) 08/30/24 18:25 Urine RBC 0-2 /HPF (0-2) 08/30/24 18:25 Urine WBC 0-5 /HPF (0-5) 08/30/24 18:25 Ur Squamous Epith Cells 6-10 /HPF (0-2) 08/30/24 18:25 Urine Bacteria None Seen (None Seen) 08/30/24 18: Hyaline Casts 0-2 /LPF (0-2) 08/30/24 18:25 Ur Random Sodium 31.0 mmol/L 08/30/24 18: Urine Creatinine 115.00 mg/dL 08/30/24 18:25 Nasal Screen MRSA (PCR) NEGATIVE (Negative) 08/31/24 15:30 Nasal S. aureus Screen NEGATIVE (Negative) 08/31/24 15:30 Nasal MRSA/S.aureus Interp SEE NOTE 08/31/24 15:30 Respiratory Panel Stevens See Note 08/30/24 18:15 Adenovirus (Rapid PCR) Not Detected (Not Detect.) 08/30/24 18:15 B.pert (TEM-PCR) Not Detected (Not Detect.) 08/30/24 18:15 B.parapertussis DNA PCR Not Detected (Not Detect.) 08/30/24 18:15 C. pneumoniae DNA (PCR) Not Detected (Not Detect.) 08/30/24 18:15 Coronavirus OC43 (PCR) Not Detected (Not Detect.) 08/30/24 18:15 Coronavirus HKU1 (PCR) Not Detected (Not Detect.) 08/30/24 18:15 Coronavirus 229E (PCR) Not Detected (Not Detect.) 08/30/24 18:15 Coronavirus NL63 (PCR) Not Detected (Not Detect.) 08/30/24 18:15 Human Metapneumovir PCR Not Detected (Not Detect.) 08/30/24 18:15 Influenza A (RT-PCR) Not Detected (Not Detect.) 08/30/24 18:15 Influenza Type A (PCR) NEGATIVE (Negative) 08/27/24 13:23 Influenza B (RT-PCR) Not Detected (Not Detect.) 08/30/24 18:15 Influenza Type B (PCR) NEGATIVE (Negative) 08/27/24 13:23 M. pneumoniae (PCR) Not Detected (Not Detect.) 08/30/24 18:15 Parainfluenza 1 (PCR) Not Detected (Not Detect.) 08/30/24 18:15 Parainfluenza 2 (PCR) Not Detected (Not Detect.) 08/30/24 18:15 Parainfluenza 3 (PCR) Not Detected (Not Detect.) 08/30/24 18:15 Parainfluenza 4 (PCR) Not Detected (Not Detect.) 08/30/24 18:15 RSV (PCR) Not Detected (Not Detect.) 08/30/24 18:15 RSV RNA Qual (PCR) NEGATIVE (Negative) 08/27/24 13:23 Entero/Rhino (PCR) Not Detected (Not Detect.) 08/30/24 18:15 SARS-CoV-2 RNA (RT-PCR) Not Detected (Not Detect.) 08/30/24 18:15 Impressions Renal Ultrasound 08/31/24 15:00 IMPRESSION: 1. No hydronephrosis of either kidney. 2. Simple cyst lower pole right kidney measuring 5.0 cm. 3. Incidental note made of large intraluminal gallstone, and moderate size left pleural effusion. Electronically signed by: Tong Manuel MD 08/31/2024 03:58 PM [facility] [place] CT chest 08/30/24 1. Moderate bilateral pleural effusions with adjacent atelectasis and/or infiltrates within the lower lobes. 2. Apparent thickening of the mid and distal esophagus. Recommend clinical correlation to exclude esophagitis. 3. New 7 mm nodule within the inferior left upper lobe. Recommend follow-up per Fleischner criteria. 4. There is a small amount of free fluid within the right upper quadrant. Discharge Plan Discharge Referrals: Irving Meneses MD [Primary Care Provider] - 1 Week Discharge Medications: No Action (DME) Raised Toliet Seat with handels See Rx Instructions .ROUTE .MEDSUPPLY Qty: 1 0RF Rx Instructions: As directed Osteoarthritis (DME) blood pressure monitor [Blood Pressure Kit] Kit See Rx Instructions .Route Qty: 1 0RF Rx Instructions: As directed (DME) ROLLATOR See Rx Instructions .Route .MEDSUPPLY Qty: 1 0RF Rx Instructions: As directed (DME) Orthpedic Shoes See Rx Instructions .Route .MEDSUPPLY Qty: 1 0RF Rx Instructions: As directed acetaminophen 325 mg tablet 650 mg PO Q6H PRN (Reason: increased pain) 30 Days Qty: 240 3RF Rx Instructions: Take NO MORE than 2000 mg of Acetaminophen DAILY diclofenac sodium 1 % gel 4 g topical QID PRN (Reason: for pain) Qty: 100 3RF (DME) Depend Underwear For Women XL Misc See Rx Instructions .Route Qty: 68 0RF Rx Instructions: To be changed 6 to 8 times a day due to overactive bladder. (DME) adult pull ups/ Extra large XL See Rx Instructions .Route .MEDSUPPLY Qty: 1 3RF Rx Instructions: As directed (DME) wipes See Rx Instructions .Route .MEDSUPPLY Qty: 5 3RF Rx Instructions: As directed hydrochlorothiazide 25 mg tablet 25 mg PO DAILY Qty: 90 1RF tizanidine 2 mg tablet 2 mg PO BID PRN (Reason: muscle spasms/leg cramps) 30 Days Qty: 60 1RF (DME) wheel chair See Rx Instructions .Route .MEDSUPPLY Qty: 1 0RF Rx Instructions: As directed amlodipine 10 mg tablet 10 mg PO DAILY fesoterodine 4 mg tablet extended release 24 hr 4 mg PO DAILY PRN (Reason: Overactive Bladder) gabapentin 100 mg capsule 100 mg PO BID PRN (Reason: Pain) rosuvastatin 20 mg tablet 20 mg PO BEDTIME (DME) RECLINER LIFT CHAIR RECLINER LIFT CHAIR See Rx Instructions .Route .MEDSUPPLY Qty: 1 0RF Rx Instructions: use as directed; brimonidine 0.2 % drops 1 drp ophthalmic (eye) TID omeprazole 20 mg capsule,delayed release(DR/EC) 20 mg PO DAILY@0630,1630 PRN (Reason: heartburns) aspirin 81 mg capsule 81 mg PO DAILY Gemtesa 75 mg tablet 75 mg PO DAILY 30 Days Qty: 30 3RF Print Language: Uzbek
[2024-09-02] MEDS: Chlorothiazide Sodium 500 MG VIAL IVPUSH (14:17)
[2024-09-02] MEDS: Digoxin 0.5 MG/2 ML AMPUL 0.25 MG IVPUSH (17:42)
[2024-09-02 20:40] LABS: Venous Blood Gas Refer to POC result
[2024-09-02 20:40] LABS: VBG Base Excess 8.3 mmol/L; VBG HCO3 35 mmol/L (22-26); VBG pCO2 61 mmHg; VBG pH 7.36 (7.32-7.43); VBG pO2 70 mmHg
[2024-09-02 21:45] LABS: B Type Natriuretic Peptide 750 pg/mL (<100)
--- NOTE | 2024-09-02 21:49 | PM.EVENT ---
Event Note Date of Service: 09/02/24 Event Note: Nurse reported tachypnea. Bilateral crackles upon examination. Obtained chest x-ray which is with worsening central vascular congestion. BNP elevated. Will order additional Lasix. Also obtained VBG. Will place patient on CPAP Time Spent With Patient Time: Total time managing care of this patient today ____ minutes.
[2024-09-02] MEDS: Furosemide 100 MG/10 ML VIAL 80 MG IVPUSH (22:36)
[2024-09-02 23:33] LABS: CDiff Gene PCR NEGATIVE (Negative)
[2024-09-03] VITALS (13 sets, daily range): BP systolic 117–164; BP diastolic 55–83; PULSE 82–109; RESP 15–20; TEMP 36.1–36.9; O2SAT 91–98
[2024-09-03] MEDS: Piperacillin Sodium/Tazobactam 2.25 GM in 0.9 % Sodium Chloride 50 ML IV ×2 (04:10→10:33)
[2024-09-03] MEDS: methylPREDNISolone Sod Succ 40 MG/ML VIAL IVPUSH (04:10)
[2024-09-03] MEDS: Pantoprazole Sodium 40 MG/10 ML VIAL IVPUSH ×2 (05:41→14:27)
[2024-09-03] MEDS: Furosemide 200 MG in 0.9 % Sodium Chloride 80 ML IVCONT ×2 (05:42→22:50)
[2024-09-03 06:18] LABS: Strep Pneumo Ag urine Not Detected (Not Detected)
[2024-09-03 07:02] LABS: B Type Natriuretic Peptide 536 pg/mL (<100)
[2024-09-03 07:58] LABS: Anion Gap 18 (12-20); Blood Urea Nitrogen 114 mg/dL (9-16); Calcium 9.3 mg/dL (8.4-10.2); Carbon Dioxide 32 mmol/L (22-29); Chloride 96 mmol/L (96-108); Estimated Glomerular Filt Rate 15; Glucose Random 141 mg/dL (60-115); Magnesium 2.4 mg/dL (1.6-2.6); Potassium 2.9 mmol/L (3.3-5.1); Sodium 143 mmol/L (135-145)
[2024-09-03] MEDS: Ipratropium Bromide 0.5 MG/2.5 ML SOLUTION INHALE ×4 (08:53→20:30)
[2024-09-03] MEDS: levalbuterol HCL 1.25 MG/3 ML VIAL.NEB INHALE ×4 (08:54→20:30)
[2024-09-03] MEDS: 0.9 % Sodium Chloride Flush 3 ML SYRINGE IVFLUSH ×2 (08:55→14:28)
[2024-09-03] MEDS: Potassium Chloride ER 20 MEQ TAB.ER.PRT 40 MEQ PO (08:56)
[2024-09-03] MEDS: Gabapentin 100 MG CAPSULE PO (08:56)
[2024-09-03] MEDS: Potassium Chloride/H20 10 MEQ/100 ML PIGGYBACK 100 MEQ IV ×4 (08:56→12:42)
[2024-09-03] MEDS: Ferrous Sulfate 324 MG TABLET.DR PO (08:56)
[2024-09-03] MEDS: Acetaminophen 325 MG TABLET 650 MG PO ×2 (08:56→15:27)
[2024-09-03] MEDS: Apixaban 2.5 MG TABLET PO (08:56)
--- NOTE | 2024-09-03 11:42 | HO.PM.IMPN ---
Subjective Subjective Date of Service: 09/03/24 Interval History: became tachypneic overnight and was given 80 mg IV furosemide and placed on CPAP now on 3L O2 via NC; dyspnea improved negative 2L fluid balance over last 24hr Review of Systems Review of Systems: Yes all other systems are reviewed and are negative Physical Exam Vital Signs: Vital Signs: Last Vital Signs Temp 98.4 F 09/03/24 08:00 Pulse 85 09/03/24 08:57 Resp 18 09/03/24 08:57 BP 151/55 H 09/03/24 08:00 Pulse Ox 93 09/03/24 08:00 O2 Del Method CPAP 09/03/24 08:00 O2 Flow Rate 4 09/02/24 20:00 FiO2 60 08/31/24 07:38 Oxygen Flow Rate 5 08/27/24 19:33 BMI result Body Mass Index 33.3 Gen: NAD HEENT: sclera anicteric, moist mucus membranes Neck: supple, JVD Lungs: diminished, bilateral wheezing Heart: normal rate, irregular, no murmurs Abd: soft, non-tender, non-distended Ext: 1+ BLE edema Skin: warm/well-perfused Neuro: alert and oriented x3, no focal findings Psych: appropriate affect Objective Data Active Medications Acetaminophen (Acetaminophen 325 Mg Tablet) 650 mg PO Q6H PRN PRN Reason: Pain, Mild 1-3,fever,headache Last Admin: 09/03/24 08:56 Dose: 650 mg Documented By: KAYCEE Apixaban (Apixaban 2.5 Mg Tablet) 2.5 mg PO BID [facility] Last Admin: 09/03/24 08:56 Dose: 2.5 mg Documented By: KAYCEE Brimonidine Tartrate (Brimonidine Tartrate 0.2% Oph 5 Ml Bottle) 1 drop EYE-BOTH TID [facility] Last Admin: 09/03/24 10:27 Dose: Not Given Documented By: KAYCEE Non-Admin Reason: Patient Refused Calcium Carbonate (Calcium Carbonate 750 Mg Tab.Chew) 750 mg PO Q4H PRN PRN Reason: Heartburn Last Admin: 08/30/24 09:36 Dose: 750 mg Documented By: JONAS Ferrous Sulfate (Ferrous Sulfate 324 Mg Tablet.) 324 mg PO DAILY [facility] Last Admin: 09/03/24 08:56 Dose: 324 mg Documented By: KAYCEE Gabapentin (Gabapentin 100 Mg Capsule) 100 mg PO BID PRN PRN Reason: Pain, Moderate(Pain Scale 4-6) Last Admin: 09/03/24 08:56 Dose: 100 mg Documented By: KAYCEE Piperacillin Sod/Tazobactam (Sod 2.25 gm/ Sodium Chloride) 50 mls @ 100 mls/hr IV Q6H [facility] Last Infusion: 09/03/24 11:14 Dose: Infused Documented By: KAYCEE Furosemide 200 mg/ Sodium (Chloride) 100 mls @ 5 mls/hr IVCONT .Q20H [facility] Last Admin: 09/03/24 05:42 Dose: 10 mg/hr, 5 mls/hr Documented By: FLY Potassium Chloride (Potassium Chloride/H20) 10 meq in 100 mls @ 100 mls/hr IV Q1H [facility] Stop: 09/03/24 12:14 Last Admin: 09/03/24 11:40 Dose: 100 mls/hr Documented By: KAYCEE Ipratropium [place] (Ipratropium [place] 0.5 Mg/2.5 Ml Solution) 0.5 mg INHALE RQ4H WHILE AWAKE [facility] Last Admin: 09/03/24 08:53 Dose: 0.5 mg Documented By: DONA Levalbuterol HCl (Levalbuterol Hcl 1.25 Mg/3 Ml Vial.Neb) 1.25 mg INHALE Q2H PRN PRN Reason: Shortness of Breath/Wheezing Levalbuterol HCl (Levalbuterol Hcl 1.25 Mg/3 Ml Vial.Neb) 1.25 mg INHALE RQ4H WHILE AWAKE [facility] Last Admin: 09/03/24 08:54 Dose: 1.25 mg Documented By: DONA Magnesium Hydroxide (Milk Of Magnesia 30 Ml Oral.Susp) 30 ml PO DAILY PRN PRN Reason: Constipation Melatonin (Melatonin 3 Mg Tablet) 6 mg PO BEDTIME PRN PRN Reason: Insomnia Methylprednisolone Sodium Succinate (Methylprednisolone Sod Succ 40 Mg/Ml Vial) 40 mg IVPUSH Q12H [facility] Last Admin: 09/03/24 04:10 Dose: 40 mg Documented By: FLY Nicotine Polacrilex (Nicotine Polacrilex Lozenge 2 Mg Lozenge) 2 mg BUCCAL Q2H PRN PRN Reason: Nicotine Cravings Pantoprazole Sodium (Pantoprazole Sodium 40 Mg/10 Ml Vial) 40 mg IVPUSH BID@0630,1630 [facility] Last Admin: 09/03/24 05:41 Dose: 40 mg Documented By: FLY Sodium Chloride (0.9 % Sodium Chloride Flush 3 Ml Syringe) 3 ml IVFLUSH QSHIFT [facility] Last Admin: 09/03/24 08:55 Dose: 3 ml Documented By: LEVON-RIVLA Labs 09/01/24 05:42 09/03/24 07:24 Labs: Laboratory Results - last 24 hr 08/30/24 09/02/24 09/02/24 18:25 20:33 21:14 VBG pH 7.36 VBG pCO2 61 VBG pO2 70 VBG HCO3 35 H VBG O2 Saturation 93.0 VBG Base Excess 8.3 Anion Gap Estim Creat Clear Calc Estimated GFR Random Glucose Calcium Magnesium B-Natriuretic Peptide 750 H C. difficile Tox B Gene Ur Strep pneumoniae Ag Not Detected 09/02/24 09/03/24 09/03/24 22:30 06:13 07:24 VBG pH VBG pCO2 VBG pO2 VBG HCO3 VBG O2 Saturation VBG Base Excess Anion Gap 18 Estim Creat Clear Calc 15.0 Estimated GFR 15 Random Glucose 141 H Calcium 9.3 Magnesium 2.4 B-Natriuretic Peptide 536 H C. difficile Tox B Gene NEGATIVE Ur Strep pneumoniae Ag Assessment and Plan (1) Atrial fibrillation with RVR: Status: Acute (2) Acute congestive heart failure: Status: Acute Plan d8 for 80yo F with tobacco abuse, HTN, CAD presenting with 1 wk of dyspnea + productive sputum, found to have AF/RVR [new onset] acute-chronic biventricular HF - Furosemide was held 08/29 due to NEEL but SCr continued to worsen and pt was clearly volume overloaded, so started furosemide IV infusion 5 mg/hr 08/31. Increased to 10 mg/hr 09/01. Continue diuresis. Also got IV chlorthalizide 09/01-09/02. Cardiology following. - TTE 08/28/24: - Visually estimated LVEF about 40%. - There is moderate to severe tricuspid valve regurgitation. - Moderate pulmonary hypertension is present. hypoK - replete IV/PO and recheck in AM COPD exacerbation - 08/28- methylprednisolone, increased 08/30 to 60 mg q8h, decreased to 40 mg q12h 09/01, decrease to 40 mg q24h today [09/03] - standing/prn nebs PNA - 08/27-08/30 ceftriaxone + azithromycin; changed to piperacillin-tazobactam and linezolid 08/30, MRSA swab negative so linezolid discontinued 09/01, complete 7d of antibiotic treatment today acute hypoxic respiratory failure - wean O2 as tolerated, treat causes as above NEEL - likely cardiorenal- discussed with Nephrology and Cardiology. Continue furosemide drip as above. Renal US without hydronephrosis AF/RVR - now controlled off diltiazem gtt. Stopped PO diltiazem per Cardiology. No beta-blockers given COPD. Given 1-time dose digoxin 250 mcg per Cardiology on 09/02. - apixaban for anticoagulation hyperK, mild - resolved p 1 dose SZC tobacco abuse - NRT, counseling VTE ppx - apixaban dispo - STR In my clinical judgment, the patient requires continued inpatient hospitalization for the following reasons: hypoxia, IV furosemide, NEEL Total time managing care of this patient today: 45 minutes. Quality Stroke Does the patient have a stroke diagnosis?: No VTE Prior VTE?: No VTE Risk Level:: Medical - moderate - high VTE Device Contraindication: Treatment Not Indicated VTE Drug Contraindication: N/A - Med Ordered
--- NOTE | 2024-09-03 12:35 | PM.PNCARD ---
Subjective Subjective Date of Service: 09/03/24 Interval history: Seen examined at bedside.-2.7 L. Clinically improving. Physical Exam Vital Signs: Last Vital Signs Temp 98.5 F 09/03/24 11:41 Pulse 103 H 09/03/24 11:47 Resp 18 09/03/24 11:47 BP 164/57 H 09/03/24 11:41 Pulse Ox 92 09/03/24 11:41 O2 Del Method Room Air 09/03/24 11:41 O2 Flow Rate 4 09/02/24 20:00 FiO2 60 08/31/24 07:38 Oxygen Flow Rate 5 08/27/24 19:33 BMI result Body Mass Index 33.3 GENERAL APPEARANCE: On nasal cannula. Mild shortness of breath.. NECK: no carotid bruit, positive jugular venous distention. SKIN: no suspicious lesions, warm and dry. HEART: no murmurs, irregular rate and rhythm. LUNGS: Bilateral expiratory wheezes. ABDOMEN: soft, nontender. EXTREMITIES: + edema. PERIPHERAL PULSES: equal. NEUROLOGIC: No gross deficits, AAO X 3 Objective Labs and Meds 09/01/24 05:42 09/03/24 07:24 Lab results: Laboratory Results - last 24 hr 08/30/24 09/02/24 09/02/24 18:25 20:33 21:14 VBG pH 7.36 VBG pCO2 61 VBG pO2 70 VBG HCO3 35 H VBG O2 Saturation 93.0 VBG Base Excess 8.3 Sodium Potassium Chloride Carbon Dioxide Anion Gap BUN Creatinine Estim Creat Clear Calc Estimated GFR Random Glucose Calcium Magnesium B-Natriuretic Peptide 750 H C. difficile Tox B Gene Ur Strep pneumoniae Ag Not Detected 09/02/24 09/03/24 09/03/24 22:30 06:13 07:24 VBG pH VBG pCO2 VBG pO2 VBG HCO3 VBG O2 Saturation VBG Base Excess Sodium 143 Potassium 2.9 L* Chloride 96 Carbon Dioxide 32 H Anion Gap 18 BUN 114 H Creatinine 2.88 H Estim Creat Clear Calc 15.0 Estimated GFR 15 Random Glucose 141 H Calcium 9.3 Magnesium 2.4 B-Natriuretic Peptide 536 H C. difficile Tox B Gene NEGATIVE Ur Strep pneumoniae Ag Progress Note: A&P Assessment and plan (1) NEEL (acute kidney injury): Status: Acute (2) Acute congestive heart failure: Status: Acute (3) Atrial fibrillation with RVR: Status: Acute Plan 88-year-old female with new onset atrial fibrillation and shortness of breath. She was being treated as pneumonia on antibiotics. Clinically volume overloaded and after discontinuation of Cardizem and increasing the Lasix drip she has been diuresing better and is-2.7 L at this stage. Still quite overloaded and I think we should continue the diuretics. Patient is hypokalemic and potassium is being replaced it. As long as heart rates are below 120 I think we do not need to do any rate controlled. If rate control has to be attempted, Cardizem should not be used. We will follow along with you. Thank you for allowing me to participate in the care of your patient. Please feel free to contact me if you have any questions. Time Spent With Patient Time: Total time managing care of this patient today ____ minutes. Progress Note: Quality Stroke Does the patient have a stroke diagnosis?: No Procedures Date of Service Date of Service: 09/03/24
--- NOTE | 2024-09-03 12:51 | P.PNNP_ITS ---
Subjective Subjective Date of Service: 09/03/24 Interval history: Responding well to IV diuretics. Physical Exam 2 Vital Signs: Vital Signs: Last Vital Signs Temp 98.5 F 09/03/24 11:41 Pulse 103 H 09/03/24 11:47 Resp 18 09/03/24 11:47 BP 164/57 H 09/03/24 11:41 Pulse Ox 92 09/03/24 11:41 O2 Del Method Room Air 09/03/24 11:41 O2 Flow Rate 4 09/02/24 20:00 FiO2 60 08/31/24 07:38 Oxygen Flow Rate 5 08/27/24 19:33 BMI result Body Mass Index 33.3 Const: General: ill appearing Neck: Neck: Yes supple Resp: Auscultation: rhonchi Cardio: Palpation: no palpable S3 Heart sounds: no rubs GI: Palpation (GI): Soft to palpation Auscultation: normal bowel sounds Neuro: Motor exam (neuro): no asterixis Objective Data Labs 09/01/24 05:42 09/03/24 07:24 Labs: Laboratory Results - last 24 hr 08/30/24 09/02/24 09/02/24 18:25 20:33 21:14 VBG pH 7.36 VBG pCO2 61 VBG pO2 70 VBG HCO3 35 H VBG O2 Saturation 93.0 VBG Base Excess 8.3 Sodium Potassium Chloride Carbon Dioxide Anion Gap BUN Creatinine Estim Creat Clear Calc Estimated GFR Random Glucose Calcium Magnesium B-Natriuretic Peptide 750 H C. difficile Tox B Gene Ur Strep pneumoniae Ag Not Detected 09/02/24 09/03/24 09/03/24 22:30 06:13 07:24 VBG pH VBG pCO2 VBG pO2 VBG HCO3 VBG O2 Saturation VBG Base Excess Sodium 143 Potassium 2.9 L* Chloride 96 Carbon Dioxide 32 H Anion Gap 18 BUN 114 H Creatinine 2.88 H Estim Creat Clear Calc 15.0 Estimated GFR 15 Random Glucose 141 H Calcium 9.3 Magnesium 2.4 B-Natriuretic Peptide 536 H C. difficile Tox B Gene NEGATIVE Ur Strep pneumoniae Ag Microbiology Microbiology Results: Microbiology 08/27/24 13:38 Blood - Venous Blood Culture - Final No growth after 5 days. 08/27/24 13:23 Blood - Venous Blood Culture - Final No growth after 5 days. Procedures Date of Service Date of Service: 09/03/24 Assessment & Plan Assessment and plan (1) NEEL (acute kidney injury): Status: Acute Plan Elderly woman with acute kidney injury in the setting of CHF/COPD. Differential diagnosis is acute kidney injury would include ATN No obstruction based on ultrasonogram. Glomerular nephritis/interstitial disease seem unlikely at this point nevertheless needs to be ruled out. Clinically she appears fluid overloaded. Plan keep her in a negative fluid balance. Agree with Lasix drip. Keep on Lasix drip for next 24-48 hours and reassess Keep in a negative balance of 1-2 L per 24 hours and avoid aggressive diuresis Replace potassium. No absolute indication for dialysis at this time will follow closely. Time Spent With Patient Time: Total time managing care of this patient today ____ minutes. Progress Note: Quality Stroke Does the patient have a stroke diagnosis?: No
[2024-09-03] MEDS: Metoprolol Succinate ER 25 MG TAB.ER.24H PO (14:27)
[2024-09-03 14:36] LABS: OBS Int Ctl Valid YES; OBS1 POSITIVE (NEGATIVE)
[2024-09-03 14:46] LABS: Hematocrit 32.7 % (37.0-47.0); Hemoglobin 9.7 g/dl (12.0-16.0)
--- NOTE | 2024-09-03 18:38 | PM.EVENT ---
Event Note Date of Service: 09/03/24 Event Note: patient complaining of severe diffuse lower abd pain, sensation of loose stools since this afternoon will check ct abd, lactic acid, stool pcr morphine for pain Time Spent With Patient Time: Total time managing care of this patient today ____ minutes.
[2024-09-03] MEDS: Morphine Sulfate 2 MG/ML CARTRIDGE IM (18:48)
[2024-09-03 19:47] LABS: Anion Gap 16 (12-20); Blood Urea Nitrogen 105 mg/dL (9-16); Calcium 8.8 mg/dL (8.4-10.2); Carbon Dioxide 32 mmol/L (22-29); Chloride 98 mmol/L (96-108); Creatinine Clr Calc Pharmacy 16.2; Estimated Glomerular Filt Rate 17; Glucose Random 133 mg/dL (60-115); Potassium 3.7 mmol/L (3.3-5.1); Sodium 142 mmol/L (135-145)
[2024-09-03 19:53] LABS: Lactic Acid 2.1 mmol/L (0.5-2.0)
[2024-09-03 21:25] LABS: Reflex Lactate? Lactic Acid Added
--- NOTE | 2024-09-03 21:38 | PM.EVENT ---
Event Note Date of Service: 09/03/24 Event Note: Patient w c/o diffuse abdominal pain. CT was obtained which showed possible developing acute calculous cholecystitis. Will obtain ultrasound. Patient finished 7 day course of Zosyn today for PNA. Time Spent With Patient Time: Total time managing care of this patient today ____ minutes.
[2024-09-03 22:22] LABS: ~Lactic Acid-LAB USE ONLY 2.2 mmol/L (0.5-2.0)
[2024-09-03] MEDS: Brimonidine Tartrate 0.2% Oph 5 ML BOTTLE 1 DROP EYE-BOTH (22:51)
[2024-09-04] VITALS (14 sets, daily range): BP systolic 121–170; BP diastolic 59–80; PULSE 81–100; RESP 15–20; TEMP 36.2–37; O2SAT 85–96; BMI 32.1
[2024-09-04] MEDS: Pantoprazole Sodium 40 MG/10 ML VIAL IVPUSH ×2 (05:12→16:51)
[2024-09-04 06:52] LABS: Hematocrit 31.4 % (37.0-47.0); Hemoglobin 9.5 g/dl (12.0-16.0); Mean Corpuscular HGB Conc 30.3 g/dl (31.0-35.0); Mean Corpuscular Hemoglobin 23.5 pg (27.0-33.0); Mean Corpuscular Volume 77.5 fL (80.0-98.0); Mean Platelet Volume 10.3 fL (9.4-12.3); NRBC Pct Auto 0.2 /100WBC (0.0-0.2); Platelet Count 253 X10*3/uL (160-400); Red Blood Count 4.05 X10*6/uL (4.20-5.50); White Blood Count 17.9 X10*3/uL (4.8-10.8)
[2024-09-04 07:17] LABS: Alanine Aminotransferase 28 U/L (0-31); Albumin Level 3.1 g/dL (3.5-5.0); Alkaline Phosphatase 54 U/L (39-117); Anion Gap 14 (12-20); Aspartate Amino Transferase 27 U/L (5-31); Bilirubin Total 0.6 mg/dL (0.0-1.0); Blood Urea Nitrogen 106 mg/dL (9-16); Calcium 8.8 mg/dL (8.4-10.2); Carbon Dioxide 39 mmol/L (22-29); Chloride 95 mmol/L (96-108); Creatinine Clr Calc Pharmacy 16.9; Estimated Glomerular Filt Rate 18; Glucose Random 98 mg/dL (60-115); Potassium 3.3 mmol/L (3.3-5.1); Sodium 145 mmol/L (135-145); Total Protein 5.6 g/dL (6.5-8.0)
[2024-09-04] MEDS: metroNIDAZOLE/NS 500 MG/100 ML PIGGYBACK 100 MG IV ×3 (07:17→22:14)
[2024-09-04] MEDS: cefTRIAXone sodium 1 GM VIAL IVPUSH (07:17)
[2024-09-04 07:19] LABS: B Type Natriuretic Peptide 471 pg/mL (<100)
[2024-09-04] MEDS: 0.9 % Sodium Chloride Flush 3 ML SYRINGE IVFLUSH ×3 (08:20→23:26)
[2024-09-04] MEDS: methylPREDNISolone Sod Succ 40 MG/ML VIAL IVPUSH (08:20)
[2024-09-04] MEDS: Metoprolol Succinate ER 25 MG TAB.ER.24H PO ×2 (08:22→22:14)
--- NOTE | 2024-09-04 10:40 | HO.PM.IMPN ---
Subjective Subjective Date of Service: 09/04/24 Interval History: seen and examined this AM events from yesterday evening reviewed denies abd pain denies n/v breathing slowly improving Review of Systems Negative except HPI/interval history. Physical Exam Vital Signs: Vital Signs: Last Vital Signs Temp 98.4 F 09/04/24 07:47 Pulse 81 09/04/24 07:47 Resp 19 09/04/24 07:47 BP 121/59 L 09/04/24 07:47 Pulse Ox 93 09/04/24 07:47 O2 Del Method CPAP 09/04/24 07:47 O2 Flow Rate 2 09/03/24 20:17 FiO2 60 08/31/24 07:38 Oxygen Flow Rate 5 08/27/24 19:33 BMI result Body Mass Index 32.1 Const: Other: General - no acute distress, appears comfortable Cardiovascular - IRR, S1-S2; jvd Lungs - normal respiratory effort, clear to auscultation bilaterally, no wheezing Abdomen - soft, nontender, no rebound or guarding;no ruq ttp Extremities - 1+ edema b/l Neuro - awake and alert, no focal deficits Objective Data Active Medications Acetaminophen (Acetaminophen 325 Mg Tablet) 650 mg PO Q6H PRN PRN Reason: Pain, Mild 1-3,fever,headache Last Admin: 09/03/24 15:27 Dose: 650 mg Documented By: KAYCEE Brimonidine Tartrate (Brimonidine Tartrate 0.2% Oph 5 Ml Bottle) 1 drop EYE-BOTH TID [facility] Last Admin: 09/03/24 22:51 Dose: 1 drop Documented By: FLY Calcium Carbonate (Calcium Carbonate 750 Mg Tab.Chew) 750 mg PO Q4H PRN PRN Reason: Heartburn Last Admin: 08/30/24 09:36 Dose: 750 mg Documented By: JONAS Ceftriaxone Sodium (Ceftriaxone Sodium 1 Gm Vial) 1 gm IVPUSH Q24H [facility] Last Admin: 09/04/24 07:17 Dose: 1 gm Documented By: FLY Ferrous Sulfate (Ferrous Sulfate 324 Mg Tablet.Dr) 324 mg PO DAILY [facility] Last Admin: 09/04/24 08:23 Dose: Not Given Documented By: STACEY Non-Admin Reason: NPO Gabapentin (Gabapentin 100 Mg Capsule) 100 mg PO BID PRN PRN Reason: Pain, Moderate(Pain Scale 4-6) Last Admin: 09/03/24 08:56 Dose: 100 mg Documented By: KAYCEE Furosemide 200 mg/ Sodium (Chloride) 100 mls @ 5 mls/hr IVCONT .Q20H [facility] Last Admin: 09/03/24 22:50 Dose: 10 mg/hr, 5 mls/hr Documented By: FLY Metronidazole (Flagyl) 500 mg in 100 mls @ 100 mls/hr IV Q8H [facility] Last Infusion: 09/04/24 08:27 Dose: Infused Documented By: STACEY Ipratropium [place] (Ipratropium [place] 0.5 Mg/2.5 Ml Solution) 0.5 mg INHALE RQ4H WHILE AWAKE [facility] Last Admin: 09/04/24 07:59 Dose: Not Given Documented By: EMILY Non-Admin Reason: Patient Refused Levalbuterol HCl (Levalbuterol Hcl 1.25 Mg/3 Ml Vial.Neb) 1.25 mg INHALE Q2H PRN PRN Reason: Shortness of Breath/Wheezing Levalbuterol HCl (Levalbuterol Hcl 1.25 Mg/3 Ml Vial.Neb) 1.25 mg INHALE RQ4H WHILE AWAKE [facility] Last Admin: 09/04/24 07:59 Dose: Not Given Documented By: EMILY Non-Admin Reason: Patient Refused Magnesium Hydroxide (Milk Of Magnesia 30 Ml Oral.Susp) 30 ml PO DAILY PRN PRN Reason: Constipation Melatonin (Melatonin 3 Mg Tablet) 6 mg PO BEDTIME PRN PRN Reason: Insomnia Methylprednisolone Sodium Succinate (Methylprednisolone Sod Succ 40 Mg/Ml Vial) 40 mg IVPUSH Q24H [facility] Last Admin: 09/04/24 08:20 Dose: 40 mg Documented By: STACEY Metoprolol Succinate (Metoprolol Succinate Er 25 Mg Tab.Er.24h) 25 mg PO DAILY [facility]; Protocol Last Admin: 09/04/24 08:22 Dose: 25 mg Documented By: STACEY Morphine Sulfate (Morphine Sulfate 2 Mg/Ml Cartridge) 2 mg IM Q3H PRN; Protocol PRN Reason: Pain, Severe (Pain Scale 7-10) Last Admin: 09/03/24 18:48 Dose: 2 mg Documented By: HO.N-RIVLA Nicotine Polacrilex (Nicotine Polacrilex Lozenge 2 Mg Lozenge) 2 mg BUCCAL Q2H PRN PRN Reason: Nicotine Cravings Pantoprazole Sodium (Pantoprazole Sodium 40 Mg/10 Ml Vial) 40 mg IVPUSH BID@0630,1630 [facility] Last Admin: 09/04/24 05:12 Dose: 40 mg Documented By: FLY Sodium Chloride (0.9 % Sodium Chloride Flush 3 Ml Syringe) 3 ml IVFLUSH QSHIFT [facility] Last Admin: 09/04/24 08:20 Dose: 3 ml Documented By: STACEY Labs 09/04/24 06:28 09/04/24 06:28 Labs: Laboratory Results - last 24 hr 09/03/24 09/03/24 09/03/24 14:00 14:36 19:20 MCV MCH MCHC RDW Plt Count MPV Absolute Nucleated RBC Nucleated RBC % (auto) Anion Gap 16 Estim Creat Clear Calc 16.2 Estimated GFR 17 Random Glucose 133 H Lactic Acid 2.1 H* Lactic Acid F/U @ 2Hr Calcium 8.8 Total Bilirubin AST ALT Alkaline Phosphatase B-Natriuretic Peptide Total Protein Albumin Stool Occult Blood POSITIVE Blood Type A Positive Antibody Screen NEGATIVE 09/03/24 09/04/24 21:51 06:28 MCV 77.5 L MCH 23.5 L MCHC 30.3 L RDW 17.0 H Plt Count 253 MPV 10.3 Absolute Nucleated RBC 0.040 H Nucleated RBC % (auto) 0.2 Anion Gap 14 Estim Creat Clear Calc 16.9 Estimated GFR 18 Random Glucose 98 Lactic Acid Lactic Acid F/U @ 2Hr 2.2 H* Calcium 8.8 Total Bilirubin 0.6 AST 27 ALT 28 Alkaline Phosphatase 54 B-Natriuretic Peptide 471 H Total Protein 5.6 L Albumin 3.1 L Stool Occult Blood Blood Type Antibody Screen Assessment and Plan (1) Atrial fibrillation with RVR: Status: Acute (2) Acute congestive heart failure: Status: Acute Plan d8 for 80yo F with tobacco abuse, HTN, CAD presenting with 1 wk of dyspnea + productive sputum, found to have AF/RVR [new onset] abdominal pain imaging concerning for acute carrie, but clinically no pain this AM empiric rocephin/flagyl started 09/03 gen surg consulted acute-chronic biventricular HF - Furosemide was held 08/29 due to NEEL but SCr continued to worsen and pt was clearly volume overloaded, so started furosemide IV infusion 5 mg/hr 08/31. Increased to 10 mg/hr 09/01. Continue diuresis. Also got IV chlorthalizide 09/01-09/02. Cardiology following. - TTE 08/28/24: - Visually estimated LVEF about 40%. - There is moderate to severe tricuspid valve regurgitation. - Moderate pulmonary hypertension is present. slowly improving, continue IV lasix drip for now, will d/w cardiology/nephrology hypoK - repleted po and iv; normal today; continue with 20meq daily while on lasix drip COPD exacerbation - 08/28- methylprednisolone, increased 08/30 to 60 mg q8h, decreased to 40 mg q12h 09/01, changed to 40mg daily starting 09/04 - standing/prn nebs PNA - 08/27-08/30 ceftriaxone + azithromycin; changed to piperacillin-tazobactam and linezolid 08/30, MRSA swab negative so linezolid discontinued 09/01, complete 7d of antibiotic treatment 08/24 acute hypoxic respiratory failure - wean O2 as tolerated, treat causes as above NEEL - likely cardiorenal- discussed with Nephrology and Cardiology. Continue furosemide drip as above. Renal US without hydronephrosis slowly improving AF/RVR - now controlled off diltiazem gtt. Stopped PO diltiazem per Cardiology. Given 1-time dose digoxin 250 mcg per Cardiology on 09/02. - apixaban for anticoagulation metoprolol xl 25mg daily started 08/24 hyperK, mild - resolved p 1 dose [facility] tobacco abuse - NRT, counseling VTE ppx - apixaban dispo - STR In my clinical judgment, the patient requires continued inpatient hospitalization for the following reasons: hypoxia, IV furosemide, NEEL Total time managing care of this patient today: 45 minutes. Quality Stroke Does the patient have a stroke diagnosis?: No VTE Prior VTE?: No VTE Risk Level:: Medical - moderate - high VTE Device Contraindication: Treatment Not Indicated VTE Drug Contraindication: N/A - Med Ordered
[2024-09-04] MEDS: levalbuterol HCL 1.25 MG/3 ML VIAL.NEB INHALE ×2 (11:09→20:25)
[2024-09-04] MEDS: Ipratropium Bromide 0.5 MG/2.5 ML SOLUTION INHALE ×2 (11:09→20:25)
--- NOTE | 2024-09-04 11:45 | PM.PNCARD ---
Subjective Subjective Date of Service: 09/04/24 Interval history: Seen examined at bedside. Significant improvement in breathing. Creatinine slowly improving. Physical Exam Vital Signs: Last Vital Signs Temp 98.6 F 09/04/24 11:13 Pulse 97 09/04/24 11:13 Resp 18 09/04/24 11:13 BP 156/67 H 09/04/24 11:13 Pulse Ox 96 09/04/24 11:13 O2 Del Method CPAP 09/04/24 07:47 O2 Flow Rate 2 09/03/24 20:17 FiO2 60 08/31/24 07:38 Oxygen Flow Rate 5 08/27/24 19:33 BMI result Body Mass Index 32.1 GENERAL APPEARANCE: On nasal cannula. Comfortable. NECK: no carotid bruit, positive jugular venous distention. SKIN: no suspicious lesions, warm and dry. HEART: no murmurs, irregular rate and rhythm. LUNGS: Clear to auscultation. ABDOMEN: soft, nontender. EXTREMITIES: Mild edema. PERIPHERAL PULSES: equal. NEUROLOGIC: No gross deficits, AAO X 3 Objective Labs and Meds 09/04/24 06:28 09/04/24 06:28 Lab results: Laboratory Results - last 24 hr 09/03/24 09/03/24 09/03/24 14:00 14:36 19:20 WBC RBC Hgb 9.7 L Hct 32.7 L MCV MCH MCHC RDW Plt Count MPV Absolute Nucleated RBC Nucleated RBC % (auto) Sodium 142 Potassium 3.7 D Chloride 98 Carbon Dioxide 32 H Anion Gap 16 BUN 105 H Creatinine 2.67 H Estim Creat Clear Calc 16.2 Estimated GFR 17 Random Glucose 133 H Lactic Acid 2.1 H* Lactic Acid F/U @ 2Hr Calcium 8.8 Total Bilirubin AST ALT Alkaline Phosphatase B-Natriuretic Peptide Total Protein Albumin Stool Occult Blood POSITIVE Blood Type A Positive Antibody Screen NEGATIVE 09/03/24 09/04/24 21:51 06:28 WBC 17.9 H RBC 4.05 L Hgb 9.5 L Hct 31.4 L MCV 77.5 L MCH 23.5 L MCHC 30.3 L RDW 17.0 H Plt Count 253 MPV 10.3 Absolute Nucleated RBC 0.040 H Nucleated RBC % (auto) 0.2 Sodium 145 Potassium 3.3 Chloride 95 L Carbon Dioxide 39 H Anion Gap 14 BUN 106 H Creatinine 2.50 H Estim Creat Clear Calc 16.9 Estimated GFR 18 Random Glucose 98 Lactic Acid Lactic Acid F/U @ 2Hr 2.2 H* Calcium 8.8 Total Bilirubin 0.6 AST 27 ALT 28 Alkaline Phosphatase 54 B-Natriuretic Peptide 471 H Total Protein 5.6 L Albumin 3.1 L Stool Occult Blood Blood Type Antibody Screen Progress Note: A&P Assessment and plan (1) NEEL (acute kidney injury): Status: Acute (2) Acute congestive heart failure: Status: Acute (3) Atrial fibrillation with RVR: Status: Acute Plan 88-year-old female with new onset atrial fibrillation and shortness of breath. She was being treated as pneumonia on antibiotics. Clinically volume overloaded and has been doing well with Lasix drip. Monitor electrolytes closely. Avoid diltiazem. Increasing Toprol-XL to 25 mg twice a day. Changing Lasix drip to 80 mg IV b.i.d. Lasix. Hopefully in a day or 2 we can transition her to oral diuretics. We will follow along with you. Thank you for allowing me to participate in the care of your patient. Please feel free to contact me if you have any questions. Time Spent With Patient Time: Total time managing care of this patient today ____ minutes. Progress Note: Quality Stroke Does the patient have a stroke diagnosis?: No Procedures Date of Service Date of Service: 09/04/24
--- NOTE | 2024-09-04 12:23 | MHC.CLN ---
F/U PREVIOUS PO INTAKE 50-75% FAIR TO GOOD DIET IS CURRENTLY NPO WHEN DIET TO RESUME, RE-START MAGIC CUP TO PROMOTE WOUND HEALING SUPP TO PROVIDE [id number], 27G PROTEIN MONITOR PO INTAKE AND ENCOURAGE SUPPLEMENT
--- NOTE | 2024-09-04 12:31 | PM.CNGS ---
History of Present Illness Consult details Consult date: 09/04/24 Narrative: Patient is a an 88-year-old female with a plethora of comorbidities intercurrent medical problems. He is currently being admitted for exacerbation of COPD/question pneumonia. On today's evaluation, patient describes no abdominal issues or complaints. Ultrasound yesterday demonstrated cholelithiasis but no evidence of acute cholecystitis. Patient states that the she is not having any nausea, vomiting either. No loose stool. Chart was reviewed and patient evaluated. Leukocytosis 17,000. LFTs within normal limits. Patient had a similar leukocytosis on 08/29 COUNTS INCLUDE 234 BEDS AT THE [facility] Past Medical History Medical History Macular degeneration Overweight (BMI 25.0-29.9) COVID-19 vaccine administered History of COVID-19 Restrictive lung disease Edema Current smoker Iron deficiency anemia Tobacco abuse Carotid bruit Obesity (BMI 30-39.9) Depression Insomnia Allergic rhinitis Elevated TSH GERD without esophagitis Impaired fasting glucose Anemia Knee osteoarthritis Vitamin D deficiency Chronic kidney disease (CKD), stage III (moderate) Pure hypercholesterolemia Benign essential hypertension Coronary artery disease Family History Family History Father Medical history unknown Mother CVD (cardiovascular disease) Surgical History Surgical History Hx of total knee arthroplasty Hx of colonoscopy Hx of cardiac cath Hx of bilateral cataract extraction History of hysterectomy Social History Social History Household Members: Family Household Members Other:: daughter and grandson live with patient. Housing: House Are you a primary client care consultant to a significant other at home: No Do you presently have visiting nurse or other home services: Yes (elder care) Unable to assess alcohol history related to: Unknown Alcohol intake: never Comment: aware of trip hazard Patient Tobacco Use Status: Current everyday Tobacco user Tobacco use type: Cigarette Cigarette Packs Per Day: 1 Cigarettes Per Day: 20.0 Years Smoked: 70 Smoked in Last 30 Days: Yes e-Cigarette/Vaping Use: Never Used Patient Interested in Nicotine Replacement: Yes Second Hand Smoke Exposure: Yes Use of substances other than those prescribed or required for medical reasons: No Currently Displaying Signs/Symptoms of Drug Intoxication Withdrawal: No Have you been hit, kicked, punched, or otherwise hurt by someone within the past year? If so, by whom?: No Do you feel safe in your current relationship?: No Is there a partner from a previous relationship who is making you feel unsafe now?: No Are you made to feel afraid or neglected: No Advance Directives: No Advance Directives Information Provided: Yes Do you have a plan to hurt others: No Plan Recently lost weight without trying: No Eating poorly because of decreased appetite: No Patient : No : No Poor oral hygiene: No service: No Current occupational status: retired and disabled Cognitive needs: No (cane/walker) Hearing needs: No Vision needs: No Meds Allergies Allergy/AdvReac Type Severity Reaction Status Date / Time atorvastatin AdvReac Intermediate myalgias Verified 08/27/24 12:09 Active Medications: Current Medications Acetaminophen (Acetaminophen 325 Mg Tablet) 650 mg PO Q6H PRN PRN Reason: Pain, Mild 1-3,fever,headache Last Admin: 09/03/24 15:27 Dose: 650 mg Brimonidine Tartrate (Brimonidine Tartrate 0.2% Oph 5 Ml Bottle) 1 drop EYE-BOTH TID [facility] Last Admin: 09/03/24 22:51 Dose: 1 drop Calcium Carbonate (Calcium Carbonate 750 Mg Tab.Chew) 750 mg PO Q4H PRN PRN Reason: Heartburn Last Admin: 08/30/24 09:36 Dose: 750 mg Ceftriaxone Sodium (Ceftriaxone Sodium 1 Gm Vial) 1 gm IVPUSH Q24H [facility] Last Admin: 09/04/24 07:17 Dose: 1 gm Ferrous Sulfate (Ferrous Sulfate 324 Mg Tablet.Dr) 324 mg PO DAILY [facility] Last Admin: 09/04/24 08:23 Dose: Not Given Furosemide (Furosemide 100 Mg/10 Ml Vial) 80 mg IVPUSH BID@0900,1800 [facility]; Protocol Gabapentin (Gabapentin 100 Mg Capsule) 100 mg PO BID PRN PRN Reason: Pain, Moderate(Pain Scale 4-6) Last Admin: 09/03/24 08:56 Dose: 100 mg Metronidazole (Flagyl) 500 mg in 100 mls @ 100 mls/hr IV Q8H [facility] Last Infusion: 09/04/24 08:27 Dose: Infused Ipratropium [place] (Ipratropium [place] 0.5 Mg/2.5 Ml Solution) 0.5 mg INHALE RQ4H WHILE AWAKE [facility] Last Admin: 09/04/24 11:09 Dose: 0.5 mg Levalbuterol HCl (Levalbuterol Hcl 1.25 Mg/3 Ml Vial.Neb) 1.25 mg INHALE Q2H PRN PRN Reason: Shortness of Breath/Wheezing Levalbuterol HCl (Levalbuterol Hcl 1.25 Mg/3 Ml Vial.Neb) 1.25 mg INHALE RQ4H WHILE AWAKE [facility] Last Admin: 09/04/24 11:09 Dose: 1.25 mg Magnesium Hydroxide (Milk Of Magnesia 30 Ml Oral.Susp) 30 ml PO DAILY PRN PRN Reason: Constipation Melatonin (Melatonin 3 Mg Tablet) 6 mg PO BEDTIME PRN PRN Reason: Insomnia Methylprednisolone Sodium Succinate (Methylprednisolone Sod Succ 40 Mg/Ml Vial) 40 mg IVPUSH Q24H [facility] Last Admin: 09/04/24 08:20 Dose: 40 mg Metoprolol Succinate (Metoprolol Succinate Er 25 Mg Tab.Er.24h) 25 mg PO BID [facility]; Protocol Morphine Sulfate (Morphine Sulfate 2 Mg/Ml Cartridge) 2 mg IM Q3H PRN; Protocol PRN Reason: Pain, Severe (Pain Scale 7-10) Last Admin: 09/03/24 18:48 Dose: 2 mg Nicotine Polacrilex (Nicotine Polacrilex Lozenge 2 Mg Lozenge) 2 mg BUCCAL Q2H PRN PRN Reason: Nicotine Cravings Pantoprazole Sodium (Pantoprazole Sodium 40 Mg/10 Ml Vial) 40 mg IVPUSH BID@0630,1630 [facility] Last Admin: 09/04/24 05:12 Dose: 40 mg Potassium Chloride (Potassium Chloride Er 20 Meq Tab.Er.Prt) 20 meq PO DAILY [facility] Sodium Chloride (0.9 % Sodium Chloride Flush 3 Ml Syringe) 3 ml IVFLUSH QSHIFT [facility] Last Admin: 09/04/24 08:20 Dose: 3 ml Home Medications ?Medication ?Instructions ?Recorded ?Confirmed ?Last Taken ?Type brimonidine 0.2 % eye drops 1 drp ophthalmic (eye) TID macular 04/17/23 08/27/24 Unknown History degeneration omeprazole 20 mg capsule,delayed 20 mg PO DAILY@0630,1630 PRN 05/18/24 08/27/24 Unknown History release heartburns aspirin 81 mg capsule 81 mg PO DAILY 07/30/24 08/27/24 Unknown History amlodipine 10 mg tablet 10 mg PO DAILY 08/27/24 08/27/24 Unknown History fesoterodine 4 mg tablet,extended 4 mg PO DAILY PRN Overactive 08/27/24 08/27/24 Unknown History release 24 hr Bladder gabapentin 100 mg capsule 100 mg PO BID PRN Pain 08/27/24 08/27/24 Unknown History rosuvastatin 20 mg tablet 20 mg PO BEDTIME 08/27/24 08/27/24 Unknown History Physical Exam Vital Signs: Vital Signs: Last Vital Signs Temp 98.6 F 09/04/24 11:13 Pulse 97 09/04/24 11:13 Resp 18 09/04/24 11:13 BP 156/67 H 09/04/24 11:13 Pulse Ox 96 09/04/24 11:13 O2 Del Method CPAP 09/04/24 07:47 O2 Flow Rate 2 09/03/24 20:17 FiO2 60 08/31/24 07:38 Oxygen Flow Rate 5 08/27/24 19:33 BMI result Body Mass Index 32.1 Const: Other: Elderly frail female in no acute abdominal distress GI: Other: Abdomen corpulent, soft, benign. No evidence of any guarding, rebound, or rigidity. No Mendez's sign. Results Labs 09/04/24 06:28 09/04/24 06:28 Labs: Abnormal lab results 09/03/24 09/03/24 09/03/24 Range/Units 14:36 19:20 21:51 WBC (4.8-10.8) X10*3/uL RBC (4.20-5.50) X10*6/uL Hgb 9.7 L (12.0-16.0) g/dl Hct 32.7 L (37.0-47.0) % MCV (80.0-98.0) fL MCH (27.0-33.0) pg MCHC (31.0-35.0) g/dl RDW (11.0-16.0) % Absolute Nucleated RBC (0.0-0.012) X10*3/uL Chloride (96-108) mmol/L Carbon Dioxide 32 H (22-29) mmol/L BUN 105 H (9-16) mg/dL Creatinine 2.67 H (0.5-1.4) mg/dL Random Glucose 133 H (60-115) mg/dL Lactic Acid 2.1 H* (0.5-2.0) mmol/L Lactic Acid F/U @ 2Hr 2.2 H* (0.5-2.0) mmol/L B-Natriuretic Peptide (<100) pg/mL Total Protein (6.5-8.0) g/dL Albumin (3.5-5.0) g/dL 09/04/24 Range/Units 06:28 WBC 17.9 H (4.8-10.8) X10*3/uL RBC 4.05 L (4.20-5.50) X10*6/uL Hgb 9.5 L (12.0-16.0) g/dl Hct 31.4 L (37.0-47.0) % MCV 77.5 L (80.0-98.0) fL MCH 23.5 L (27.0-33.0) pg MCHC 30.3 L (31.0-35.0) g/dl RDW 17.0 H (11.0-16.0) % Absolute Nucleated RBC 0.040 H (0.0-0.012) X10*3/uL Chloride 95 L (96-108) mmol/L Carbon Dioxide 39 H (22-29) mmol/L BUN 106 H (9-16) mg/dL Creatinine 2.50 H (0.5-1.4) mg/dL Random Glucose (60-115) mg/dL Lactic Acid (0.5-2.0) mmol/L Lactic Acid F/U @ 2Hr (0.5-2.0) mmol/L B-Natriuretic Peptide 471 H (<100) pg/mL Total Protein 5.6 L (6.5-8.0) g/dL Albumin 3.1 L (3.5-5.0) g/dL Short CBC 09/03/24 09/04/24 Range/Units 14:36 06:28 WBC 17.9 H (4.8-10.8) X10*3/uL Hgb 9.7 L 9.5 L (12.0-16.0) g/dl Hct 32.7 L 31.4 L (37.0-47.0) % Plt Count 253 (160-400) X10*3/uL BMP 09/03/24 09/04/24 19:20 06:28 Sodium 142 145 Potassium 3.7 D 3.3 Chloride 98 95 L Carbon Dioxide 32 H 39 H BUN 105 H 106 H Creatinine 2.67 H 2.50 H Calcium 8.8 8.8 Liver Function 09/04/24 Range/Units 06:28 Total Bilirubin 0.6 (0.0-1.0) mg/dL AST 27 (5-31) U/L ALT 28 (0-31) U/L Alkaline Phosphatase 54 (39-117) U/L Albumin 3.1 L (3.5-5.0) g/dL Urine 08/27/24 08/30/24 Range/Units 20:02 18:25 Urine Color Yellow Yellow Urine Appearance Clear Clear Urine pH 5.5 5.0 (5.0-9.0) Ur Specific [place] 1.015 1.015 (1.005-1.025) Urine Protein 300 (3+) H 300 (3+) H (Neg-Trace) mg/dL Urine Glucose (UA) Negative Negative (Negative) mg/dL All other labs normal. Assessment and Plan (1) Cholelithiasis: Status: Acute Plan At present, no acute surgical issues demonstrated. Advance diet per hospitalist. We will follow up p.r.n.. Should the patient develop acute cholecystitis, she would be probably best served with IR drainage of the gallbladder because she is a very high surgical operative risk based on her significant comorbidities and age. Procedures Date of Service Date of Service: 09/04/24
[2024-09-04] MEDS: Potassium Chloride ER 20 MEQ TAB.ER.PRT PO (12:45)
[2024-09-04] MEDS: Brimonidine Tartrate 0.2% Oph 5 ML BOTTLE 1 DROP EYE-BOTH ×2 (14:45→22:14)
--- NOTE | 2024-09-04 15:38 | MHC.CM.PN ---
Addendum entered by Anna Wells 09/04/24 15:45: Pts son/HCP Booker Kulkarni # [phone]. Original Note: EMR reviewed and per MD rounds, pt is not medically cleared for discharge due to management of hypoxia and NEEL, pt receiving IV furosemide; pt will remain here through the weekend per MD. This CM spoke with pts son/HCP Booker regarding discharge plans. PT is recommending STR, their first choice is [facility], and second choice is [facility]. This CM explained that [facility] is an acute rehab and she may not qualify but that we would send a referral to check. Booker also had concerns about the pts code status as pt is currently a full code, but since pt is not very alert and able to answer questions right now, per the MD, code status to remain as full code at this time. Pts son Booker would like to revisit the discussion of code status if pts becomes more alert.
[2024-09-04] MEDS: Furosemide 100 MG/10 ML VIAL 80 MG IVPUSH (16:51)
--- NOTE | 2024-09-04 18:29 | PM.GICN ---
History of Present Illness Data of Consult Service Date: 09/04/24 Requesting physician: Belkis Meyer Primary Care Provider: Irving Meneses MD HPI Reason for consult: abdominal pain 88 year old female with a history of tobacco use, cognitive decline, HTN, and an NM in early with stents who I am seeing for assessment for abdominal pain. Patient was initially admitted approx 1 week ago with SOB and found to have a fib with RVR and possible pneumoni. yesterday she was c/o severe abdominal pain, mostly in the RUQ 10/10 going across the front of her abdomen without any obvious excaerbating factors, but no nausea, or vomtiing, and no fever. SHe denies diarrhea, consipation, rectal bleeding. Today the pain has resolved. Imaging with US was obtained which revealed possible early cholecystitis with stone noted in GB> Review of Systems Review of Systems: Constitutional : No Weight loss, No Fever, No Chills ENT/Mouth : No sore throat, No Rhinorrhea Eyes: No Swelling, No Redness Cardiovascular : No Chest Pain, + SOB, No Edema Respiratory : No Cough, No Sputum, No Wheezing Gastrointestinal : see HPI Genitourinary : NO Dysuria, No Urinary Frequency, No Hematuria, No Urgency Musculoskeletal : no joint pain, No Myalgias, No Joint Swelling Skin : No Skin Lesions, No rash Neuro : No Weakness, No Numbness, No Dizziness, No Headache Psych : No Anxiety/Panic, No Depression Heme/Lymph: No Bruising, No Lymphadenopathy Endocrine : No Polyuria, No Polydipsia All other systems reviewed and are negative. [facility] Past Medical History Medical History Macular degeneration Overweight (BMI 25.0-29.9) COVID-19 vaccine administered History of COVID-19 Restrictive lung disease Edema Current smoker Iron deficiency anemia Tobacco abuse Carotid bruit Obesity (BMI 30-39.9) Depression Insomnia Allergic rhinitis Elevated TSH GERD without esophagitis Impaired fasting glucose Anemia Knee osteoarthritis Vitamin D deficiency Chronic kidney disease (CKD), stage III (moderate) Pure hypercholesterolemia Benign essential hypertension Coronary artery disease Family History Family History Father Medical history unknown Mother CVD (cardiovascular disease) Surgical History Surgical History Hx of total knee arthroplasty Hx of colonoscopy Hx of cardiac cath Hx of bilateral cataract extraction History of hysterectomy Social History Social History Household Members: Family Household Members Other:: daughter and grandson live with patient. Housing: House Are you a primary patient care technician to a significant other at home: No Do you presently have visiting nurse or other home services: Yes (elder care) Unable to assess alcohol history related to: Unknown Alcohol intake: never Comment: aware of trip hazard Patient Tobacco Use Status: Current everyday Tobacco user Tobacco use type: Cigarette Cigarette Packs Per Day: 1 Cigarettes Per Day: 20.0 Years Smoked: 70 Smoked in Last 30 Days: Yes e-Cigarette/Vaping Use: Never Used Patient Interested in Nicotine Replacement: Yes Second Hand Smoke Exposure: Yes Use of substances other than those prescribed or required for medical reasons: No Currently Displaying Signs/Symptoms of Drug Intoxication Withdrawal: No Have you been hit, kicked, punched, or otherwise hurt by someone within the past year? If so, by whom?: No Do you feel safe in your current relationship?: No Is there a partner from a previous relationship who is making you feel unsafe now?: No Are you made to feel afraid or neglected: No Advance Directives: No Advance Directives Information Provided: Yes Do you have a plan to hurt others: No Plan Recently lost weight without trying: No Eating poorly because of decreased appetite: No Patient : No : No Poor oral hygiene: No service: No Current occupational status: retired and disabled Cognitive needs: No (cane/walker) Hearing needs: No Vision needs: No Meds Allergies Allergy/AdvReac Type Severity Reaction Status Date / Time atorvastatin AdvReac Intermediate myalgias Verified 08/27/24 12:09 Active Medications: Current Medications Acetaminophen (Acetaminophen 325 Mg Tablet) 650 mg PO Q6H PRN PRN Reason: Pain, Mild 1-3,fever,headache Last Admin: 09/03/24 15:27 Dose: 650 mg Brimonidine Tartrate (Brimonidine Tartrate 0.2% Oph 5 Ml Bottle) 1 drop EYE-BOTH TID [place] Last Admin: 09/04/24 14:45 Dose: 1 drop Calcium Carbonate (Calcium Carbonate 750 Mg Tab.Chew) 750 mg PO Q4H PRN PRN Reason: Heartburn Last Admin: 08/30/24 09:36 Dose: 750 mg Ceftriaxone Sodium (Ceftriaxone Sodium 1 Gm Vial) 1 gm IVPUSH Q24H [facility] Last Admin: 09/04/24 07:17 Dose: 1 gm Ferrous Sulfate (Ferrous Sulfate 324 Mg Tablet.Dr) 324 mg PO DAILY [facility] Last Admin: 09/04/24 08:23 Dose: Not Given Furosemide (Furosemide 100 Mg/10 Ml Vial) 80 mg IVPUSH BID@0900,1800 [facility]; Protocol Last Admin: 09/04/24 16:51 Dose: 80 mg Gabapentin (Gabapentin 100 Mg Capsule) 100 mg PO BID PRN PRN Reason: Pain, Moderate(Pain Scale 4-6) Last Admin: 09/03/24 08:56 Dose: 100 mg Metronidazole (Flagyl) 500 mg in 100 mls @ 100 mls/hr IV Q8H [facility] Last Infusion: 09/04/24 15:41 Dose: Infused Ipratropium [place] (Ipratropium [place] 0.5 Mg/2.5 Ml Solution) 0.5 mg INHALE RQ4H WHILE AWAKE [facility] Last Admin: 09/04/24 15:22 Dose: Not Given Levalbuterol HCl (Levalbuterol Hcl 1.25 Mg/3 Ml Vial.Neb) 1.25 mg INHALE Q2H PRN PRN Reason: Shortness of Breath/Wheezing Levalbuterol HCl (Levalbuterol Hcl 1.25 Mg/3 Ml Vial.Neb) 1.25 mg INHALE RQ4H WHILE AWAKE [facility] Last Admin: 09/04/24 15:22 Dose: Not Given Magnesium Hydroxide (Milk Of Magnesia 30 Ml Oral.Susp) 30 ml PO DAILY PRN PRN Reason: Constipation Melatonin (Melatonin 3 Mg Tablet) 6 mg PO BEDTIME PRN PRN Reason: Insomnia Methylprednisolone Sodium Succinate (Methylprednisolone Sod Succ 40 Mg/Ml Vial) 40 mg IVPUSH Q24H [facility] Last Admin: 09/04/24 08:20 Dose: 40 mg Metoprolol Succinate (Metoprolol Succinate Er 25 Mg Tab.Er.24h) 25 mg PO BID [facility]; Protocol Morphine Sulfate (Morphine Sulfate 2 Mg/Ml Cartridge) 2 mg IM Q3H PRN; Protocol PRN Reason: Pain, Severe (Pain Scale 7-10) Last Admin: 09/03/24 18:48 Dose: 2 mg Nicotine Polacrilex (Nicotine Polacrilex Lozenge 2 Mg Lozenge) 2 mg BUCCAL Q2H PRN PRN Reason: Nicotine Cravings Pantoprazole Sodium (Pantoprazole Sodium 40 Mg/10 Ml Vial) 40 mg IVPUSH BID@0630,1630 [facility] Last Admin: 09/04/24 16:51 Dose: 40 mg Potassium Chloride (Potassium Chloride Er 20 Meq Tab.Er.Prt) 20 meq PO DAILY [facility] Last Admin: 09/04/24 12:45 Dose: 20 meq Sodium Chloride (0.9 % Sodium Chloride Flush 3 Ml Syringe) 3 ml IVFLUSH QSHIFT [facility] Last Admin: 09/04/24 16:51 Dose: 3 ml Home Medications ?Medication ?Instructions ?Recorded ?Confirmed ?Last Taken ?Type brimonidine 0.2 % eye drops 1 drp ophthalmic (eye) TID macular 04/17/23 08/27/24 Unknown History degeneration omeprazole 20 mg capsule,delayed 20 mg PO DAILY@0630,1630 PRN 05/18/24 08/27/24 Unknown History release heartburns aspirin 81 mg capsule 81 mg PO DAILY 07/30/24 08/27/24 Unknown History amlodipine 10 mg tablet 10 mg PO DAILY 08/27/24 08/27/24 Unknown History fesoterodine 4 mg tablet,extended 4 mg PO DAILY PRN Overactive 08/27/24 08/27/24 Unknown History release 24 hr Bladder gabapentin 100 mg capsule 100 mg PO BID PRN Pain 08/27/24 08/27/24 Unknown History rosuvastatin 20 mg tablet 20 mg PO BEDTIME 08/27/24 08/27/24 Unknown History Physical Exam Vital Signs: Vital Signs: Last Vital Signs Temp 98.6 F 09/04/24 11:13 Pulse 97 09/04/24 11:13 Resp 18 09/04/24 11:13 BP 156/67 H 09/04/24 16:51 Pulse Ox 93 09/04/24 14:33 O2 Del Method Nasal Cannula 09/04/24 14:33 O2 Flow Rate 2 09/04/24 14:33 FiO2 60 08/31/24 07:38 Oxygen Flow Rate 5 08/27/24 19:33 BMI result Body Mass Index 32.1 EXAM: GENERAL: The patient is relaxed VITAL SIGNS:see workflow HEENT: Nonicteric sclerae, PERRLA, EOMI. Oropharynx clear. Moist mucous membranes. Conjunctivae appear pale. No thyroid mass. CHEST: Chest wall is nontender. HEART: Regular rate and rhythm without murmurs. LUNGS: Clear to auscultation bilaterally. ABDOMEN: Soft, positive bowel sounds, nontender, no organomegaly.no flank tenderness SKIN: No rash, no excessive bruising, petechiae, or purpura. NEUROLOGIC: Cranial nerves II-XII intact without motor/sensory deficit. Psych- normal affect Results Labs 09/04/24 06:28 09/04/24 06:28 Labs: Short CBC 09/04/24 Range/Units 06:28 WBC 17.9 H (4.8-10.8) X10*3/uL Hgb 9.5 L (12.0-16.0) g/dl Hct 31.4 L (37.0-47.0) % Plt Count 253 (160-400) X10*3/uL BMP 09/03/24 09/04/24 19:20 06:28 Sodium 142 145 Potassium 3.7 D 3.3 Chloride 98 95 L Carbon Dioxide 32 H 39 H BUN 105 H 106 H Creatinine 2.67 H 2.50 H Calcium 8.8 8.8 Liver Function 09/04/24 Range/Units 06:28 Total Bilirubin 0.6 (0.0-1.0) mg/dL AST 27 (5-31) U/L ALT 28 (0-31) U/L Alkaline Phosphatase 54 (39-117) U/L Albumin 3.1 L (3.5-5.0) g/dL Microbiology Microbiology Results: Microbiology 08/27/24 13:38 Blood - Venous Blood Culture - Final No growth after 5 days. 08/27/24 13:23 Blood - Venous Blood Culture - Final No growth after [address] scan - abdomen: Attestation: I personally reviewed and interpreted this imaging study as follows: (large calcified GB close to GB neck wth GB thickening, b/l pl effusions ) Assessment and Plan (1) Cholelithiasis: Qualifiers: Cholelithiasis location: gallbladder Status: Acute Plan 1/ Abdominal pain, likely 2/2 biliary colic may have temporarily occluded cystic duct 2/ Microcytic anemia, possibly from CKD and hematuria -no overt GI bleeding, denied melena or rectal bleeding PLAN: 1/ Check b12, folate, iron levels, and replenish 2/ if concern for cholecystectomy surgery consult vs IR for drain placement, could also potentially perform spyglass and lithotripsy of stone 3/ consider sending urine for cytology 4/ low fat diet, Procedures Date of Service Date of Service: 09/04/24
[2024-09-04] MEDS: Melatonin 3 MG TABLET 6 MG PO (22:14)
[2024-09-05] VITALS (11 sets, daily range): BP systolic 114–162; BP diastolic 55–76; PULSE 76–101; RESP 18–25; TEMP 36.1–36.6; O2SAT 88–100; BMI 32.0
[2024-09-05 05:54] LABS: Legionella Ag Urine Not Detected (Not Detected)
[2024-09-05] MEDS: Pantoprazole Sodium 40 MG/10 ML VIAL IVPUSH (06:20)
[2024-09-05] MEDS: metroNIDAZOLE/NS 500 MG/100 ML PIGGYBACK 100 MG IV ×3 (06:24→23:53)
[2024-09-05] MEDS: cefTRIAXone sodium 1 GM VIAL IVPUSH (06:24)
[2024-09-05] MEDS: Ipratropium Bromide 0.5 MG/2.5 ML SOLUTION INHALE ×4 (08:12→21:07)
[2024-09-05] MEDS: levalbuterol HCL 1.25 MG/3 ML VIAL.NEB INHALE ×4 (08:12→21:07)
[2024-09-05] MEDS: methylPREDNISolone Sod Succ 40 MG/ML VIAL IVPUSH (09:54)
[2024-09-05] MEDS: Metoprolol Succinate ER 25 MG TAB.ER.24H PO ×2 (09:54→20:12)
[2024-09-05] MEDS: Ferrous Sulfate 324 MG TABLET.DR PO (09:54)
[2024-09-05] MEDS: Potassium Chloride ER 20 MEQ TAB.ER.PRT PO (09:54)
[2024-09-05] MEDS: Furosemide 100 MG/10 ML VIAL 80 MG IVPUSH ×2 (09:54→18:03)
[2024-09-05] MEDS: 0.9 % Sodium Chloride Flush 3 ML SYRINGE IVFLUSH ×3 (09:55→20:15)
[2024-09-05] MEDS: Brimonidine Tartrate 0.2% Oph 5 ML BOTTLE 1 DROP EYE-BOTH ×3 (10:00→21:01)
--- NOTE | 2024-09-05 10:12 | P.PNIM_ITS ---
Subjective Subjective Date of Service: 09/05/24 Interval History: abd pain resolved Physical Exam 2 Vital Signs: Vital Signs: Last Vital Signs Temp 97.0 F 09/05/24 07:06 Pulse 91 09/05/24 08:14 Resp 20 09/05/24 08:14 BP 126/60 09/05/24 07:06 Pulse Ox 93 09/05/24 07:06 O2 Del Method Nasal Cannula 09/05/24 07:06 O2 Flow Rate 2 09/05/24 07:06 FiO2 60 08/31/24 07:38 Oxygen Flow Rate 5 08/27/24 19:33 BMI result Body Mass Index 32.0 Const: Other: General - no acute distress, appears comfortable Cardiovascular - IRR, S1-S2; jvd Lungs - normal respiratory effort, clear to auscultation bilaterally, no wheezing Abdomen - soft, nontender, no rebound or guarding;no ruq ttp Extremities - 1+ edema b/l Neuro - awake and alert, no focal deficits Objective Data Active Medications Acetaminophen (Acetaminophen 325 Mg Tablet) 650 mg PO Q6H PRN PRN Reason: Pain, Mild 1-3,fever,headache Last Admin: 09/03/24 15:27 Dose: 650 mg Documented By: KAYCEE Brimonidine Tartrate (Brimonidine Tartrate 0.2% Oph 5 Ml Bottle) 1 drop EYE- BOTH TID [facility] Last Admin: 09/05/24 10:00 Dose: 1 drop Documented By: ROS Calcium Carbonate (Calcium Carbonate 750 Mg Tab.Chew) 750 mg PO Q4H PRN PRN Reason: Heartburn Last Admin: 08/30/24 09:36 Dose: 750 mg Documented By: JONAS Ceftriaxone Sodium (Ceftriaxone Sodium 1 Gm Vial) 1 gm IVPUSH Q24H [facility] Last Admin: 09/05/24 06:24 Dose: 1 gm Documented By: MAMI Ferrous Sulfate (Ferrous Sulfate 324 Mg Tablet.Dr) 324 mg PO DAILY [facility] Last Admin: 09/05/24 09:54 Dose: 324 mg Documented By: ROS Furosemide (Furosemide 100 Mg/10 Ml Vial) 80 mg IVPUSH BID@0900,1800 [facility]; Protocol Last Admin: 09/05/24 09:54 Dose: 80 mg Documented By: ROS Gabapentin (Gabapentin 100 Mg Capsule) 100 mg PO BID PRN PRN Reason: Pain, Moderate(Pain Scale 4-6) Last Admin: 09/03/24 08:56 Dose: 100 mg Documented By: KAYCEE Metronidazole (Flagyl) 500 mg in 100 mls @ 100 mls/hr IV Q8H [facility] Last Infusion: 09/05/24 10:03 Dose: Infused Documented By: ROS Ipratropium [place] (Ipratropium [place] 0.5 Mg/2.5 Ml Solution) 0.5 mg INHALE RQ4H WHILE AWAKE [facility] Last Admin: 09/05/24 08:12 Dose: 0.5 mg Documented By: GUILLE Levalbuterol HCl (Levalbuterol Hcl 1.25 Mg/3 Ml Vial.Neb) 1.25 mg INHALE Q2H PRN PRN Reason: Shortness of Breath/Wheezing Levalbuterol HCl (Levalbuterol Hcl 1.25 Mg/3 Ml Vial.Neb) 1.25 mg INHALE RQ4H WHILE AWAKE [facility] Last Admin: 09/05/24 08:12 Dose: 1.25 mg Documented By: GUILLE Magnesium Hydroxide (Milk Of Magnesia 30 Ml Oral.Susp) 30 ml PO DAILY PRN PRN Reason: Constipation Melatonin (Melatonin 3 Mg Tablet) 6 mg PO BEDTIME PRN PRN Reason: Insomnia Last Admin: 09/04/24 22:14 Dose: 6 mg Documented By: MAMI Methylprednisolone Sodium Succinate (Methylprednisolone Sod Succ 40 Mg/Ml Vial) 40 mg IVPUSH Q24H [facility] Last Admin: 09/05/24 09:54 Dose: 40 mg Documented By: ROS Metoprolol Succinate (Metoprolol Succinate Er 25 Mg Tab.Er.24h) 25 mg PO BID [facility]; Protocol Last Admin: 09/05/24 09:54 Dose: 25 mg Documented By: ROS Morphine Sulfate (Morphine Sulfate 2 Mg/Ml Cartridge) 2 mg IM Q3H PRN; Protocol PRN Reason: Pain, Severe (Pain Scale 7-10) Last Admin: 09/03/24 18:48 Dose: 2 mg Documented By: KAYCEE Nicotine Polacrilex (Nicotine Polacrilex Lozenge 2 Mg Lozenge) 2 mg BUCCAL Q2H PRN PRN Reason: Nicotine Cravings Pantoprazole Sodium (Pantoprazole Sodium 40 Mg/10 Ml Vial) 40 mg IVPUSH BID@0630,1630 [facility] Last Admin: 09/05/24 06:20 Dose: 40 mg Documented By: MAMI Potassium Chloride (Potassium Chloride Er 20 Meq Tab.Er.Prt) 20 meq PO DAILY [facility] Last Admin: 09/05/24 09:54 Dose: 20 meq Documented By: ROS Sodium Chloride (0.9 % Sodium Chloride Flush 3 Ml Syringe) 3 ml IVFLUSH QSHIFT [facility] Last Admin: 09/05/24 09:55 Dose: 3 ml Documented By: ROS Labs 09/04/24 06:28 09/04/24 06:28 Labs: Laboratory Results - last 24 hr 08/30/24 18:25 Ur L.pneumophila Ag Not Detected Assessment and Plan (1) Atrial fibrillation with RVR: Status: Acute (2) Acute congestive heart failure: Status: Acute Plan 80F PMH tobacco abuse, HTN, CAD presenting with 1 wk of dyspnea + productive sputum, found to have AF/RVR [new onset] abdominal pain imaging concerning for acute carrie, but clinically no pain surgery appreciated, will hold of on surgery/IR for now empiric rocephin/flagyl started 09/03 acute-chronic biventricular HF with reduced EF s/p lasix drip, now on IV lasix 80mg bid Cardiology following. TTE 08/28/24: - Visually estimated LVEF about 40%. - There is moderate to severe tricuspid valve regurgitation. - Moderate pulmonary hypertension is present. slowly improving, continue IV lasix drip for now, will d/w cardiology/nephrology acute hypoK repleted po and iv; normal today; continue with 20meq daily while on lasix drip COPD exacerbation 08/28- methylprednisolone, increased 08/30 to 60 mg q8h, decreased to 40 mg q12h 09/01, changed to 40mg daily starting 09/04 standing/prn nebs PNA 08/27-08/30 ceftriaxone + azithromycin; changed to piperacillin-tazobactam and linezolid 08/30, MRSA swab negative so linezolid discontinued 09/01, completed 7d of antibiotic treatment 09/03 acute hypoxic respiratory failure wean O2 as tolerated, treat causes as above NEEL likely cardiorenal- discussed with Nephrology and Cardiology. Continue furosemide as above. Renal US without hydronephrosis slowly improving new onset AF/RVR now controlled off diltiazem gtt. Stopped PO diltiazem per Cardiology. Given 1-time dose digoxin 250 mcg per Cardiology on 09/02. now on toprol 25 bid apixaban initially started on hold for possible surgical intervention hyperK, mild resolved p 1 dose SZC tobacco abuse NRT, counseling VTE ppx apixaban on hold, will use hep sq for now dispo STR reason for continued hospitalization:iv diuresis, iv abx for possible choelcystitis Total time managing care of this patient today: 45 minutes. Quality Stroke Does the patient have a stroke diagnosis?: No VTE Prior VTE?: No VTE Risk Level:: Medical - moderate - high VTE Device Contraindication: Treatment Not Indicated VTE Drug Contraindication: N/A - Med Ordered
--- NOTE | 2024-09-05 12:22 | PM.PNCARD ---
Subjective Subjective Date of Service: 09/05/24 Interval history: Seen and examined at bedside. Doing better. Physical Exam Vital Signs: Last Vital Signs Temp 97.6 F 09/05/24 11:19 Pulse 76 09/05/24 11:19 Resp 18 09/05/24 11:19 BP 130/66 09/05/24 11:19 Pulse Ox 96 09/05/24 11:19 O2 Del Method Nasal Cannula 09/05/24 11:19 O2 Flow Rate 2 09/05/24 11:19 FiO2 60 08/31/24 07:38 Oxygen Flow Rate 5 08/27/24 19:33 BMI result Body Mass Index 32.0 GENERAL APPEARANCE: On nasal cannula. Comfortable. NECK: no carotid bruit, mild jugular venous distention. SKIN: no suspicious lesions, warm and dry. HEART: no murmurs, irregular rate and rhythm. LUNGS: Clear to auscultation. ABDOMEN: soft, nontender. EXTREMITIES: trace edema. PERIPHERAL PULSES: equal. NEUROLOGIC: No gross deficits, AAO X 3 Objective Labs and Meds 09/04/24 06:28 09/04/24 06:28 Lab results: Laboratory Results - last 24 hr 08/30/24 18:25 Ur L.pneumophila Ag Not Detected Progress Note: A&P Assessment and plan (1) NEEL (acute kidney injury): Status: Acute (2) Acute congestive heart failure: Status: Acute (3) Atrial fibrillation with RVR: Status: Acute Plan 88-year-old female with new onset atrial fibrillation and shortness of breath. Clinically volume overloaded and on Lasix. Monitor electrolytes closely. Avoid diltiazem. Increased Toprol-XL to 25 mg twice a day. Can change to PO Lasix 80 mg BID tomorrow. Concern about cholecystitis but being managed conservative. She has no abdominal pain today. We will follow along with you. Thank you for allowing me to participate in the care of your patient. Please feel free to contact me if you have any questions. Time Spent With Patient Time: Total time managing care of this patient today ____ minutes. Progress Note: Quality Stroke Does the patient have a stroke diagnosis?: No Procedures Date of Service Date of Service: 09/05/24
[2024-09-05] MEDS: Heparin Sodium,Porcine 5,000 UNIT/ML VIAL 5000 UNIT SUBCUT ×2 (14:00→23:54)
[2024-09-05] MEDS: Melatonin 3 MG TABLET 6 MG PO (20:13)
[2024-09-06] VITALS (12 sets, daily range): BP systolic 116–176; BP diastolic 54–95; PULSE 74–110; RESP 16–21; TEMP 36.1–36.7; O2SAT 91–98; BMI 28.4
[2024-09-06] MEDS: metroNIDAZOLE/NS 500 MG/100 ML PIGGYBACK 100 MG IV ×3 (06:33→21:51)
[2024-09-06] MEDS: cefTRIAXone sodium 1 GM VIAL IVPUSH (06:33)
[2024-09-06 07:01] LABS: Hematocrit 34.9 % (37.0-47.0); Hemoglobin 10.1 g/dl (12.0-16.0); Mean Corpuscular HGB Conc 28.9 g/dl (31.0-35.0); Mean Corpuscular Hemoglobin 23.4 pg (27.0-33.0); Mean Corpuscular Volume 80.8 fL (80.0-98.0); Mean Platelet Volume 11.1 fL (9.4-12.3); Platelet Count 203 X10*3/uL (160-400); Red Blood Count 4.32 X10*6/uL (4.20-5.50); Red Cell Distribution Width 17.6 % (11.0-16.0); White Blood Count 13.6 X10*3/uL (4.8-10.8)
[2024-09-06 07:35] LABS: Alanine Aminotransferase 37 U/L (0-31); Albumin Level 3.2 g/dL (3.5-5.0); Alkaline Phosphatase 57 U/L (39-117); Anion Gap 20 (12-20); Aspartate Amino Transferase 45 U/L (5-31); Bilirubin Direct 0.2 mg/dL (0.0-0.5); Bilirubin Total 0.7 mg/dL (0.0-1.0); Blood Urea Nitrogen 87 mg/dL (9-16); Calcium 9.3 mg/dL (8.4-10.2); Carbon Dioxide 39 mmol/L (22-29); Chloride 93 mmol/L (96-108); Creatinine Clr Calc Pharmacy 24.1; Estimated Glomerular Filt Rate 27; Glucose Random 113 mg/dL (60-115); Magnesium 1.9 mg/dL (1.6-2.6); Potassium 3.8 mmol/L (3.3-5.1); Sodium 148 mmol/L (135-145); Total Protein 6.2 g/dL (6.5-8.0)
[2024-09-06] MEDS: levalbuterol HCL 1.25 MG/3 ML VIAL.NEB INHALE ×4 (08:11→19:42)
[2024-09-06] MEDS: Ipratropium Bromide 0.5 MG/2.5 ML SOLUTION INHALE ×4 (08:11→19:42)
[2024-09-06] MEDS: Furosemide 100 MG/10 ML VIAL 80 MG IVPUSH (08:54)
[2024-09-06] MEDS: methylPREDNISolone Sod Succ 40 MG/ML VIAL IVPUSH (08:54)
[2024-09-06] MEDS: 0.9 % Sodium Chloride Flush 3 ML SYRINGE IVFLUSH ×3 (09:00→20:24)
[2024-09-06] MEDS: Metoprolol Succinate ER 25 MG TAB.ER.24H PO ×2 (09:00→20:23)
[2024-09-06] MEDS: Potassium Chloride ER 20 MEQ TAB.ER.PRT PO (09:00)
[2024-09-06] MEDS: Ferrous Sulfate 324 MG TABLET.DR PO (09:00)
[2024-09-06] MEDS: Brimonidine Tartrate 0.2% Oph 5 ML BOTTLE 1 DROP EYE-BOTH ×3 (09:01→20:27)
[2024-09-06] MEDS: Heparin Sodium,Porcine 5,000 UNIT/ML VIAL 5000 UNIT SUBCUT ×2 (09:01→21:52)
--- NOTE | 2024-09-06 09:51 | P.PNIM_ITS ---
Subjective Subjective Date of Service: 09/06/24 Interval History: abd pain resolved Physical Exam 2 Vital Signs: Vital Signs: Last Vital Signs Temp 97.0 F 09/06/24 07:37 Pulse 91 09/06/24 08:11 Resp 18 09/06/24 08:11 BP 158/71 H 09/06/24 07:37 Pulse Ox 92 09/06/24 07:37 O2 Del Method BiPAP 09/06/24 07:37 O2 Flow Rate 12 09/06/24 02:48 FiO2 60 08/31/24 07:38 Oxygen Flow Rate 5 08/27/24 19:33 BMI result Body Mass Index 28.4 GENERAL APPEARANCE: On nasal cannula. Comfortable. NECK: no carotid bruit, mild jugular venous distention. SKIN: no suspicious lesions, warm and dry. HEART: no murmurs, irregular rate and rhythm. LUNGS: Clear to auscultation. ABDOMEN: soft, nontender. EXTREMITIES: trace edema. PERIPHERAL PULSES: equal. NEUROLOGIC: No gross deficits, AAO X 3 Objective Data Active Medications Acetaminophen (Acetaminophen 325 Mg Tablet) 650 mg PO Q6H PRN PRN Reason: Pain, Mild 1-3,fever,headache Last Admin: 09/03/24 15:27 Dose: 650 mg Documented By: KAYCEE Brimonidine Tartrate (Brimonidine Tartrate 0.2% Oph 5 Ml Bottle) 1 drop EYE- BOTH TID [facility] Last Admin: 09/06/24 09:01 Dose: 1 drop Documented By: ROS Calcium Carbonate (Calcium Carbonate 750 Mg Tab.Chew) 750 mg PO Q4H PRN PRN Reason: Heartburn Last Admin: 08/30/24 09:36 Dose: 750 mg Documented By: JONAS Ceftriaxone Sodium (Ceftriaxone Sodium 1 Gm Vial) 1 gm IVPUSH Q24H [facility] Last Admin: 09/06/24 06:33 Dose: 1 gm Documented By: MAMI Ferrous Sulfate (Ferrous Sulfate 324 Mg Tablet.) 324 mg PO DAILY [facility] Last Admin: 09/06/24 09:00 Dose: 324 mg Documented By: ROS Furosemide (Furosemide 100 Mg/10 Ml Vial) 80 mg IVPUSH BID@0900,1800 [facility]; Protocol Last Admin: 09/06/24 08:54 Dose: 80 mg Documented By: ROS Gabapentin (Gabapentin 100 Mg Capsule) 100 mg PO BID PRN PRN Reason: Pain, Moderate(Pain Scale 4-6) Last Admin: 09/03/24 08:56 Dose: 100 mg Documented By: KAYCEE Heparin Sodium (Porcine) (Heparin Sodium,Porcine 5,000 Unit/Ml Vial) 5,000 unit SUBCUT Q12H [facility] Last Admin: 09/06/24 09:01 Dose: 5,000 unit Documented By: ROS Metronidazole (Flagyl) 500 mg in 100 mls @ 100 mls/hr IV Q8H [facility] Last Admin: 09/06/24 06:33 Dose: 100 mls/hr Documented By: MAMI Ipratropium [place] (Ipratropium [place] 0.5 Mg/2.5 Ml Solution) 0.5 mg INHALE RQ4H WHILE AWAKE [facility] Last Admin: 09/06/24 08:11 Dose: 0.5 mg Documented By: FLEX Levalbuterol HCl (Levalbuterol Hcl 1.25 Mg/3 Ml Vial.Neb) 1.25 mg INHALE RQ4H WHILE AWAKE [facility] Last Admin: 09/06/24 08:11 Dose: 1.25 mg Documented By: FLEX Magnesium Hydroxide (Milk Of Magnesia 30 Ml Oral.Susp) 30 ml PO DAILY PRN PRN Reason: Constipation Melatonin (Melatonin 3 Mg Tablet) 6 mg PO BEDTIME PRN PRN Reason: Insomnia Last Admin: 09/05/24 20:13 Dose: 6 mg Documented By: MAMI Methylprednisolone Sodium Succinate (Methylprednisolone Sod Succ 40 Mg/Ml Vial) 40 mg IVPUSH Q24H [facility] Last Admin: 09/06/24 08:54 Dose: 40 mg Documented By: ROS Metoprolol Succinate (Metoprolol Succinate Er 25 Mg Tab.Er.24h) 25 mg PO BID [facility]; Protocol Last Admin: 09/06/24 09:00 Dose: 25 mg Documented By: ROS Morphine Sulfate (Morphine Sulfate 2 Mg/Ml Cartridge) 2 mg IM Q3H PRN; Protocol PRN Reason: Pain, Severe (Pain Scale 7-10) Last Admin: 09/03/24 18:48 Dose: 2 mg Documented By: KAYCEE Nicotine Polacrilex (Nicotine Polacrilex Lozenge 2 Mg Lozenge) 2 mg BUCCAL Q2H PRN PRN Reason: Nicotine Cravings Potassium Chloride (Potassium Chloride Er 20 Meq Tab.Er.Prt) 20 meq PO DAILY [facility] Last Admin: 09/06/24 09:00 Dose: 20 meq Documented By: ROS Sodium Chloride (0.9 % Sodium Chloride Flush 3 Ml Syringe) 3 ml IVFLUSH QSHIFT [facility] Last Admin: 09/06/24 09:00 Dose: 3 ml Documented By: ROS Labs 09/06/24 06:28 09/06/24 06:27 Labs: Laboratory Results - last 24 hr 09/06/24 09/06/24 06:27 06:28 MCV 80.8 MCH 23.4 L MCHC 28.9 L RDW 17.6 H Plt Count 203 MPV 11.1 Absolute Nucleated RBC 0.000 Nucleated RBC % (auto) 0.0 Anion Gap 20 Estim Creat Clear Calc 24.1 Estimated GFR 27 Random Glucose 113 Calcium 9.3 Magnesium 1.9 Total Bilirubin 0.7 Direct Bilirubin 0.2 AST 45 H ALT 37 H Alkaline Phosphatase 57 Total Protein 6.2 L Albumin 3.2 L Assessment and Plan (1) Atrial fibrillation with RVR: Status: Acute (2) Acute congestive heart failure: Status: Acute Plan 80F PMH tobacco abuse, HTN, CAD presenting with 1 wk of dyspnea + productive sputum, found to have AF/RVR [new onset] abdominal pain imaging concerning for acute carrie, but clinically no pain or tenderness surgery appreciated, will hold of on surgery/IR for now empiric rocephin/flagyl started 09/03 acute-chronic biventricular HF with reduced EF s/p lasix drip, will change to po lasix 80mg bid Cardiology following. TTE 08/28/24: - Visually estimated LVEF about 40%. - There is moderate to severe tricuspid valve regurgitation. - Moderate pulmonary hypertension is present. slowly improving, continue IV lasix drip for now, will d/w cardiology/nephrology acute hypoK repleted po and iv; normal today; continue with 20meq daily COPD exacerbation 08/28- methylprednisolone, increased 08/30 to 60 mg q8h, decreased to 40 mg q12h 09/01, changed to 40mg daily starting 09/04 standing/prn nebs PNA 08/27-08/30 ceftriaxone + azithromycin; changed to piperacillin-tazobactam and linezolid 08/30, MRSA swab negative so linezolid discontinued 09/01, completed 7d of antibiotic treatment 09/03 acute hypoxic respiratory failure wean O2 as tolerated, treat causes as above NEEL likely cardiorenal- discussed with Nephrology and Cardiology. Continue furosemide as above. Renal US without hydronephrosis slowly improving new onset AF/RVR now controlled off diltiazem gtt. Stopped PO diltiazem per Cardiology. Given 1-time dose digoxin 250 mcg per Cardiology on 09/02. now on toprol 25 bid apixaban initially started on hold for possible surgical intervention hyperK, mild resolved p 1 dose SZC tobacco abuse NRT, counseling VTE ppx apixaban on hold, will use hep sq for now dispo STR reason for continued hospitalization:iv abx for possible choelcystitis Total time managing care of this patient today: 45 minutes. Quality Stroke Does the patient have a stroke diagnosis?: No VTE Prior VTE?: No VTE Risk Level:: Medical - moderate - high VTE Device Contraindication: Treatment Not Indicated VTE Drug Contraindication: N/A - Med Ordered
[2024-09-06 12:49] LABS: CDiff Gene PCR NEGATIVE (Negative)
[2024-09-06 13:14] LABS: Adenovirus F 40/41 Not Detected (Not Detect.); Astrovirus Not Detected (Not Detect.); Campylobacter Not Detected (Not Detect.); Cryptosporidium Not Detected (Not Detect.); Cyclospora cayetanensis Not Detected (Not Detect.); E. coli EAEC Not Detected (Not Detect.); E. coli EPEC Not Detected (Not Detect.); E. coli ETEC Not Detected (Not Detect.); E. coli STEC Not Detected (Not Detect.); Entamoeba histolytica Not Detected (Not Detect.); Giardia lamblia Not Detected (Not Detect.); Norovirus GI/GII Not Detected (Not Detect.); Plesiomonas shigelloides Not Detected (Not Detect.); Rotavirus A Not Detected (Not Detect.); Salmonella Not Detected (Not Detect.); Sapovirus Not Detected (Not Detect.); Shigella sp./EIEC Not Detected (Not Detect.); Vibrio Not Detected (Not Detect.); Vibrio Cholerae Not Detected (Not Detect.); Yersinia enterocolitica Not Detected (Not Detect.)
--- NOTE | 2024-09-06 13:44 | PM.PNCARD ---
Subjective Subjective Date of Service: 09/06/24 Interval history: Seen examined at bedside. Feeling good. Physical Exam Vital Signs: Last Vital Signs Temp 97.1 F 09/06/24 12:00 Pulse 86 09/06/24 12:00 Resp 20 09/06/24 12:00 BP 125/59 L 09/06/24 12:00 Pulse Ox 97 09/06/24 12:00 O2 Del Method Nasal Cannula 09/06/24 12:00 O2 Flow Rate 2 09/06/24 12:00 FiO2 60 08/31/24 07:38 Oxygen Flow Rate 5 08/27/24 19:33 BMI result Body Mass Index 28.4 GENERAL APPEARANCE: On nasal cannula. Comfortable. NECK: no carotid bruit, mild jugular venous distention. SKIN: no suspicious lesions, warm and dry. HEART: no murmurs, irregular rate and rhythm. LUNGS: Clear to auscultation. ABDOMEN: soft, nontender. EXTREMITIES: trace edema. PERIPHERAL PULSES: equal. NEUROLOGIC: No gross deficits, AAO X 3 Objective Labs and Meds 09/06/24 06:28 09/06/24 06:27 Lab results: Laboratory Results - last 24 hr 09/06/24 09/06/24 09/06/24 06:27 06:28 11:05 WBC 13.6 H RBC 4.32 Hgb 10.1 L Hct 34.9 L MCV 80.8 MCH 23.4 L MCHC 28.9 L RDW 17.6 H Plt Count 203 MPV 11.1 Absolute Nucleated RBC 0.000 Nucleated RBC % (auto) 0.0 Sodium 148 H Potassium 3.8 Chloride 93 L Carbon Dioxide 39 H Anion Gap 20 BUN 87 H Creatinine 1.76 H Estim Creat Clear Calc 24.1 Estimated GFR 27 Random Glucose 113 Calcium 9.3 Magnesium 1.9 Total Bilirubin 0.7 Direct Bilirubin 0.2 AST 45 H ALT 37 H Alkaline Phosphatase 57 Total Protein 6.2 L Albumin 3.2 L Stl C. cayetanensis PCR Not Detected Stool Rotavirus A PCR Not Detected Stl Adenov F 40/41 PCR Not Detected Stool Astrovirus (PCR) Not Detected Stool Campylobacter PCR Not Detected Stool Cryptosporidium PCR Not Detected Stl Sh Tox Pr E STEC PCR Not Detected Stool E coli O157 PCR Not applicable Stl Enterotoxigenic E PCR Not Detected Stool EPEC (PCR) Not Detected Stool EAEC (PCR) Not Detected Stl E. histolytica PCR Not Detected Stool Giardia Lamblia PCR Not Detected Stl P. shigelloides PCR Not Detected Stool Salmonella PCR Not Detected Stool Sapovirus (PCR) Not Detected Stl Shigella/EIEC PCR Not Detected St Y.enterocolitica PCR Not Detected Stool Vibrio (PCR) Not Detected Stl Vibrio cholerae PCR Not Detected Stl Norovirus GI/GII PCR Not Detected C. difficile Tox B Gene NEGATIVE Progress Note: A&P Assessment and plan (1) NEEL (acute kidney injury): Status: Acute (2) Acute congestive heart failure: Status: Acute (3) Atrial fibrillation with RVR: Status: Acute Plan 88-year-old female with new onset atrial fibrillation and shortness of breath. Clinically volume overloaded and on Lasix. Monitor electrolytes closely. Avoid diltiazem. Increased Toprol-XL to 25 mg twice a day. Can change to PO Lasix 80 mg BID tomorrow. Concern about cholecystitis but being managed conservative. She has no abdominal pain today. If tolerating oral then can be started on Eliquis 2.5 mg twice a day for anticoagulation. We will follow along with you. Thank you for allowing me to participate in the care of your patient. Please feel free to contact me if you have any questions. Time Spent With Patient Time: Total time managing care of this patient today ____ minutes. Progress Note: Quality Stroke Does the patient have a stroke diagnosis?: No Procedures Date of Service Date of Service: 09/06/24
[2024-09-06] MEDS: Furosemide 40 MG TABLET 80 MG PO (16:42)
[2024-09-07] VITALS (9 sets, daily range): BP systolic 111–159; BP diastolic 56–74; PULSE 77–96; RESP 16–18; TEMP 36.2–37.2; O2SAT 90–96; BMI 30.3
[2024-09-07] MEDS: metroNIDAZOLE/NS 500 MG/100 ML PIGGYBACK 100 MG IV ×2 (05:20→14:54)
[2024-09-07] MEDS: cefTRIAXone sodium 1 GM VIAL IVPUSH (05:20)
[2024-09-07] MEDS: Metoprolol Succinate ER 25 MG TAB.ER.24H PO (08:09)
[2024-09-07] MEDS: methylPREDNISolone Sod Succ 40 MG/ML VIAL IVPUSH (08:09)
[2024-09-07] MEDS: Potassium Chloride ER 20 MEQ TAB.ER.PRT PO (08:09)
[2024-09-07] MEDS: Furosemide 40 MG TABLET 80 MG PO (08:10)
[2024-09-07] MEDS: Ferrous Sulfate 324 MG TABLET.DR PO (08:10)
[2024-09-07] MEDS: Brimonidine Tartrate 0.2% Oph 5 ML BOTTLE 1 DROP EYE-BOTH ×2 (08:10→15:05)
[2024-09-07] MEDS: 0.9 % Sodium Chloride Flush 3 ML SYRINGE IVFLUSH (08:10)
[2024-09-07] MEDS: levalbuterol HCL 1.25 MG/3 ML VIAL.NEB INHALE ×2 (08:34→11:28)
[2024-09-07] MEDS: Ipratropium Bromide 0.5 MG/2.5 ML SOLUTION INHALE ×2 (08:34→11:28)
[2024-09-07] MEDS: Heparin Sodium,Porcine 5,000 UNIT/ML VIAL 5000 UNIT SUBCUT (10:39)
--- NOTE | 2024-09-07 10:48 | P.PNIM_ITS ---
Subjective Subjective Date of Service: 09/07/24 Interval History: abd pain resolved Physical Exam 2 Vital Signs: Vital Signs: Last Vital Signs Temp 97.7 F 09/07/24 07:35 Pulse 90 09/07/24 08:37 Resp 16 09/07/24 08:37 BP 159/72 H 09/07/24 07:35 Pulse Ox 93 09/07/24 07:35 O2 Del Method Nasal Cannula 09/07/24 07:35 O2 Flow Rate 2 09/07/24 07:35 FiO2 60 08/31/24 07:38 Oxygen Flow Rate 5 08/27/24 19:33 BMI result Body Mass Index 30.3 GENERAL APPEARANCE: On nasal cannula. Comfortable. NECK: no carotid bruit, mild jugular venous distention. SKIN: no suspicious lesions, warm and dry. HEART: no murmurs, irregular rate and rhythm. LUNGS: Clear to auscultation. ABDOMEN: soft, nontender. EXTREMITIES: trace edema. PERIPHERAL PULSES: equal. NEUROLOGIC: No gross deficits, AAO X 3 Objective Data Active Medications Acetaminophen (Acetaminophen 325 Mg Tablet) 650 mg PO Q6H PRN PRN Reason: Pain, Mild 1-3,fever,headache Last Admin: 09/03/24 15:27 Dose: 650 mg Documented By: KAYCEE Brimonidine Tartrate (Brimonidine Tartrate 0.2% Oph 5 Ml Bottle) 1 drop EYE- BOTH TID [facility] Last Admin: 09/07/24 08:10 Dose: 1 drop Documented By: GAGE Calcium Carbonate (Calcium Carbonate 750 Mg Tab.Chew) 750 mg PO Q4H PRN PRN Reason: Heartburn Last Admin: 08/30/24 09:36 Dose: 750 mg Documented By: JONAS Ceftriaxone Sodium (Ceftriaxone Sodium 1 Gm Vial) 1 gm IVPUSH Q24H [facility] Last Admin: 09/07/24 05:20 Dose: 1 gm Documented By: FLY Ferrous Sulfate (Ferrous Sulfate 324 Mg Tablet.) 324 mg PO DAILY [facility] Last Admin: 09/07/24 08:10 Dose: 324 mg Documented By: GAGE Furosemide (Furosemide 40 Mg Tablet) 80 mg PO BID@0900,1800 [facility]; Protocol Last Admin: 09/07/24 08:10 Dose: 80 mg Documented By: GAGE Gabapentin (Gabapentin 100 Mg Capsule) 100 mg PO BID PRN PRN Reason: Pain, Moderate(Pain Scale 4-6) Last Admin: 09/03/24 08:56 Dose: 100 mg Documented By: KAYCEE Heparin Sodium (Porcine) (Heparin Sodium,Porcine 5,000 Unit/Ml Vial) 5,000 unit SUBCUT Q12H [facility] Last Admin: 09/07/24 10:39 Dose: 5,000 unit Documented By: GAGE Metronidazole (Flagyl) 500 mg in 100 mls @ 100 mls/hr IV Q8H [facility] Last Infusion: 09/07/24 06:37 Dose: Infused Documented By: FLY Ipratropium Purdys (Ipratropium Purdys 0.5 Mg/2.5 Ml Solution) 0.5 mg INHALE RQ4H WHILE AWAKE [facility] Last Admin: 09/07/24 08:34 Dose: 0.5 mg Documented By: DONA Levalbuterol HCl (Levalbuterol Hcl 1.25 Mg/3 Ml Vial.Neb) 1.25 mg INHALE RQ4H WHILE AWAKE [facility] Last Admin: 09/07/24 08:34 Dose: 1.25 mg Documented By: DONA Loperamide HCl (Loperamide Hcl 2 Mg Capsule) 2 mg PO Q4H PRN PRN Reason: Diarrhea Magnesium Hydroxide (Milk Of Magnesia 30 Ml Oral.Susp) 30 ml PO DAILY PRN PRN Reason: Constipation Melatonin (Melatonin 3 Mg Tablet) 6 mg PO BEDTIME PRN PRN Reason: Insomnia Last Admin: 09/05/24 20:13 Dose: 6 mg Documented By: MAMI Methylprednisolone Sodium Succinate (Methylprednisolone Sod Succ 40 Mg/Ml Vial) 40 mg IVPUSH Q24H [facility] Last Admin: 09/07/24 08:09 Dose: 40 mg Documented By: GAGE Metoprolol Succinate (Metoprolol Succinate Er 25 Mg Tab.Er.24h) 25 mg PO BID [facility]; Protocol Last Admin: 09/07/24 08:09 Dose: 25 mg Documented By: GAGE Morphine Sulfate (Morphine Sulfate 2 Mg/Ml Cartridge) 2 mg IM Q3H PRN; Protocol PRN Reason: Pain, Severe (Pain Scale 7-10) Last Admin: 09/03/24 18:48 Dose: 2 mg Documented By: KAYCEE Nicotine Polacrilex (Nicotine Polacrilex Lozenge 2 Mg Lozenge) 2 mg BUCCAL Q2H PRN PRN Reason: Nicotine Cravings Potassium Chloride (Potassium Chloride Er 20 Meq Tab.Er.Prt) 20 meq PO DAILY [facility] Last Admin: 09/07/24 08:09 Dose: 20 meq Documented By: GAGE Sodium Chloride (0.9 % Sodium Chloride Flush 3 Ml Syringe) 3 ml IVFLUSH QSHIFT [facility] Last Admin: 09/07/24 08:10 Dose: 3 ml Documented By: GAGE Labs 09/06/24 06:28 09/06/24 06:27 Labs: Laboratory Results - last 24 hr 09/06/24 11:05 Stl C. cayetanensis PCR Not Detected Stool Rotavirus A PCR Not Detected Stl Adenov F 40/41 PCR Not Detected Stool Astrovirus (PCR) Not Detected Stool Campylobacter PCR Not Detected Stool Cryptosporidium PCR Not Detected Stl Sh Tox Pr E STEC PCR Not Detected Stool E coli O157 PCR Not applicable Stl Enterotoxigenic E PCR Not Detected Stool EPEC (PCR) Not Detected Stool EAEC (PCR) Not Detected Stl E. histolytica PCR Not Detected Stool Giardia Lamblia PCR Not Detected Stl P. shigelloides PCR Not Detected Stool Salmonella PCR Not Detected Stool Sapovirus (PCR) Not Detected Stl Shigella/EIEC PCR Not Detected St Y.enterocolitica PCR Not Detected Stool Vibrio (PCR) Not Detected Stl Vibrio cholerae PCR Not Detected Stl Norovirus GI/GII PCR Not Detected C. difficile Tox B Gene NEGATIVE Assessment and Plan (1) Atrial fibrillation with RVR: Status: Acute (2) Acute congestive heart failure: Status: Acute Plan 80F PMH tobacco abuse, HTN, CAD presenting with 1 wk of dyspnea + productive sputum, found to have AF/RVR [new onset] abdominal pain imaging concerning for acute carrie, but clinically no pain or tenderness surgery appreciated, will hold of on surgery/IR for now empiric rocephin/flagyl started 09/03 acute-chronic biventricular HF with reduced EF s/p lasix drip, will change to po lasix 80mg bid Cardiology following. TTE 08/28/24: - Visually estimated LVEF about 40%. - There is moderate to severe tricuspid valve regurgitation. - Moderate pulmonary hypertension is present. slowly improving, continue IV lasix drip for now, will d/w cardiology/nephrology acute hypoK repleted po and iv; normal today; continue with 20meq daily COPD exacerbation 08/28- methylprednisolone, increased 08/30 to 60 mg q8h, decreased to 40 mg q12h 09/01, changed to 40mg daily starting 09/04 standing/prn nebs PNA 08/27-08/30 ceftriaxone + azithromycin; changed to piperacillin-tazobactam and linezolid 08/30, MRSA swab negative so linezolid discontinued 09/01, completed 7d of antibiotic treatment 09/03 acute hypoxic respiratory failure wean O2 as tolerated, treat causes as above NEEL likely cardiorenal- discussed with Nephrology and Cardiology. Continue furosemide as above. Renal US without hydronephrosis slowly improving new onset AF/RVR now controlled off diltiazem gtt. Stopped PO diltiazem per Cardiology. Given 1-time dose digoxin 250 mcg per Cardiology on 09/02. now on toprol 25 bid apixaban initially started on hold for possible surgical intervention hyperK, mild resolved p 1 dose SZC tobacco abuse NRT, counseling VTE ppx apixaban on hold, will use hep sq for now dispo STR reason for continued hospitalization:safe dispo Total time managing care of this patient today: 45 minutes. Quality Stroke Does the patient have a stroke diagnosis?: No VTE Prior VTE?: No VTE Risk Level:: Medical - moderate - high VTE Device Contraindication: Treatment Not Indicated VTE Drug Contraindication: N/A - Med Ordered
--- NOTE | 2024-09-07 11:01 | PM.DS ---
DS: Providers Provider Date of Service: 09/07/24 Date of admission: 08/27/24 15:47 Date of discharge: 09/07/24 Primary care physician: Irving Meneses MD Consults: 08/27/24 14:10 Consult to Cardiology Stat Consulting Provider: [facility] Reason for consultation: atrial fib w/RVR, new Afib, elevated trop. Has provider been notified: Yes 08/27/24 23:29 Consult to Wound Care Routine Reason for consultation: stage II to coccyx present on admission 08/30/24 08:31 Consult to Nephrology Routine Consulting Provider: [facility] Reason for consultation: NEEL? overdiuresis vs cardiorenal? 09/02/24 18:22 Consult to Wound Care Routine Reason for consultation: MASD? r/t incontinence 09/03/24 16:18 Consult to Gastroenterology Routine Consulting Provider: [facility] Reason for consultation: FOBT+, abd pain, Hb stable, needs to be on Eliquis 09/04/24 06:28 Consult to General Surgery Routine Consulting Provider: [facility] Reason for consultation: Cholecystitis DS: Diagnosis Discharge Diagnosis (1) Atrial fibrillation with RVR: Status: Acute (2) Acute congestive heart failure: Status: Acute DS: Summary Hospital Course Hospital Course: from initial hpi: 88 year old female with a history of tobacco use, cognitive decline, HTN, and an PA in early with stents presenting to the emergency department today with shortness of breath. Patient states that over the last 3 days she has had worsening shortness of breath and difficulty breathing. Continues to smoke approximately 1 pack a day; states over the last 3 days the shortness of breath has been accompanied by a productive cough and today became such that she could not walk across the room without stopping.. In our workup consistent with acute CHF which is new along with AFib with a rapid ventricular response. She received bolus Cardize dosing with placed on a drip. She did have some work of breathing and was placed on CPAP with good results. 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 Received IV Lasix and Lasix drip, eventually transitioned to p.o. Lasix 80 mg b.i.d. maintenance. Echocardiogram showed EF of 40% with moderate to severe tricuspid valve regurgitation and moderate pulmonary hypertension. Patient's symptoms slowly improved. Course complicated by acute hypokalemia which was repleted. Course complicated by COPD with acute decompensation which was treated with steroids and improved. Also treated for bacterial pneumonia with ceftriaxone azithromycin later changed to Zosyn and linezolid, completed treatment. Course complicated by acute kidney injury likely cardiorenal and improved with diuresis. Also noted to have new onset atrial fibrillation with rapid ventricular response. Was started on diltiazem and then transitioned to metoprolol. Also started on apixaban. Now controlled. Had episode of mild hyperkalemia which improved with Lokelma. Course and complicated by abdominal pain. There was concern initially for acute cholecystitis but patient had no right upper quadrant tenderness was empirically treated with ceftriaxone and Flagyl, was seen by surgery who felt patient would not benefit from intervention at this time. Symptoms have completely resolved. Patient is now on room air will be discharged to shelter facility for short-term rehab. Time Attestation Discharge Coordination Time (in mins): 37 Quality: Safe Use of Opioids Does Pt have an Active Cancer Diagnosis on the Problem List?: No Quality: Stroke Does the patient have a stroke diagnosis?: No Physical Exam Vital Signs: Vital Signs: Last Vital Signs Temp 97.7 F 09/07/24 07:35 Pulse 90 09/07/24 08:37 Resp 16 09/07/24 08:37 BP 159/72 H 09/07/24 07:35 Pulse Ox 93 09/07/24 07:35 O2 Del Method Nasal Cannula 09/07/24 07:35 O2 Flow Rate 2 09/07/24 07:35 FiO2 60 08/31/24 07:38 Oxygen Flow Rate 5 08/27/24 19:33 BMI result Body Mass Index 30.3 GENERAL APPEARANCE: On nasal cannula. Comfortable. NECK: no carotid bruit, mild jugular venous distention. SKIN: no suspicious lesions, warm and dry. HEART: no murmurs, irregular rate and rhythm. LUNGS: Clear to auscultation. ABDOMEN: soft, nontender. EXTREMITIES: trace edema. PERIPHERAL PULSES: equal. NEUROLOGIC: No gross deficits, AAO X 3 DS: Data Data Completed and Pending Completed studies during hospitalization [Text1]: Procedures Extirpation of Matter from Left Lower Leg Subcutaneous Tissue and Fascia, Open Approach (03/27/22) Introduction of Remdesivir Anti-infective into Peripheral Vein, Percutaneous Approach, [employer] 5 (08/19/23) Repair Left Upper Leg Tendon, Open Approach (03/27/22) Replacement of Left Knee Joint with Synthetic Substitute, Uncemented, Open Approach (02/06/22) Reposition Left Patella with Internal Fixation Device, Open Approach (03/27/22) Labs on day of discharge: Laboratory Results - last 24 hr 09/06/24 11:05 Stl C. cayetanensis PCR Not Detected Stool Rotavirus A PCR Not Detected Stl Adenov F 40/41 PCR Not Detected Stool Astrovirus (PCR) Not Detected Stool Campylobacter PCR Not Detected Stool Cryptosporidium PCR Not Detected Stl Sh Tox Pr E STEC PCR Not Detected Stool E coli O157 PCR Not applicable Stl Enterotoxigenic E PCR Not Detected Stool EPEC (PCR) Not Detected Stool EAEC (PCR) Not Detected Stl E. histolytica PCR Not Detected Stool Giardia Lamblia PCR Not Detected Stl P. shigelloides PCR Not Detected Stool Salmonella PCR Not Detected Stool Sapovirus (PCR) Not Detected Stl Shigella/EIEC PCR Not Detected St Y.enterocolitica PCR Not Detected Stool Vibrio (PCR) Not Detected Stl Vibrio cholerae PCR Not Detected Stl Norovirus GI/GII PCR Not Detected C. difficile Tox B Gene NEGATIVE Discharge Plan Discharge Anticipated Discharge Date/Time: 09/07/24 10:49 Patient Disposition: Xfer SNF Discharge Diagnosis: pna, chf Referrals: Irving Meneses MD [Primary Care Provider] - 1 Week Discharge Medications: New furosemide 40 mg Tablet 80 mg PO BID@0900,1800 Qty: 0 0RF Protocol: Hold for SBP< HOLD for SBP < : 90 potassium chloride 20 mEq Tablet,Er Particles/Crystals 20 meq PO DAILY Qty: 0 0RF metoprolol succinate 25 mg Tablet Extended Release 24 Hr 25 mg PO BID Qty: 0 0RF Protocol: Hold for SBP/HR < HOLD for SBP < : 90 HOLD for HR < : 60 ferrous sulfate 324 mg (65 mg iron) Tablet,Delayed Release (Dr/Ec) 324 mg PO DAILY Qty: 0 0RF apixaban 2.5 mg tablet 2.5 mg PO BID Qty: 90 0RF Continued (DME) Raised Toliet Seat with handels See Rx Instructions .ROUTE .MEDSUPPLY Qty: 1 0RF Rx Instructions: As directed Osteoarthritis (DME) blood pressure monitor [Blood Pressure Kit] Kit See Rx Instructions .Route Qty: 1 0RF Rx Instructions: As directed (DME) ROLLATOR See Rx Instructions .Route .MEDSUPPLY Qty: 1 0RF Rx Instructions: As directed (DME) Orthpedic Shoes See Rx Instructions .Route .MEDSUPPLY Qty: 1 0RF Rx Instructions: As directed acetaminophen 325 mg tablet 650 mg PO Q6H PRN (Reason: increased pain) 30 Days Qty: 240 3RF Rx Instructions: Take NO MORE than 2000 mg of Acetaminophen DAILY diclofenac sodium 1 % gel 4 g topical QID PRN (Reason: for pain) Qty: 100 3RF (DME) Depend Underwear For Women XL Misc See Rx Instructions .Route Qty: 68 0RF Rx Instructions: To be changed 6 to 8 times a day due to overactive bladder. (DME) adult pull ups/ Extra large XL See Rx Instructions .Route .MEDSUPPLY Qty: 1 3RF Rx Instructions: As directed (DME) wipes See Rx Instructions .Route .MEDSUPPLY Qty: 5 3RF Rx Instructions: As directed tizanidine 2 mg tablet 2 mg PO BID PRN (Reason: muscle spasms/leg cramps) 30 Days Qty: 60 1RF (DME) wheel chair See Rx Instructions .Route .MEDSUPPLY Qty: 1 0RF Rx Instructions: As directed amlodipine 10 mg tablet 10 mg PO DAILY fesoterodine 4 mg tablet extended release 24 hr 4 mg PO DAILY PRN (Reason: Overactive Bladder) gabapentin 100 mg capsule 100 mg PO BID PRN (Reason: Pain) rosuvastatin 20 mg tablet 20 mg PO BEDTIME (DME) RECLINER LIFT CHAIR RECLINER LIFT CHAIR See Rx Instructions .Route .MEDSUPPLY Qty: 1 0RF Rx Instructions: use as directed; brimonidine 0.2 % drops 1 drp ophthalmic (eye) TID omeprazole 20 mg capsule,delayed release(DR/EC) 20 mg PO DAILY@0630,1630 PRN (Reason: heartburns) aspirin 81 mg capsule 81 mg PO DAILY Gemtesa 75 mg tablet 75 mg PO DAILY 30 Days Qty: 30 3RF Discontinued hydrochlorothiazide 25 mg tablet 25 mg PO DAILY Qty: 90 1RF Discharge Orders: Discharge Order (Routine); Ordered 09/07/24 Ordered By: Rocael Phillips Diet: Advance to usual diet Activity on Discharge: As tolerated Stand Alone Forms: Patient Portal Discharge page Print Language: Welsh Care Plan Goals: recovery Health Concerns: chf, pna Plan of Treatment: completed treatment, started on lasix 80bid for maintentce, plan for rehab Assessment: see above
--- NOTE | 2024-09-07 12:04 | MHC.CLN ---
F/U PO INTAKE 25% X 3 MEALS POOR DIET RX: 2GM NA 1500ML FLUID RESTRICTION RECEIVING MAGIC CUP TO PROMOTE WOUND HEALING SUPP PROVIDE 870KCALS, 27G PROTEIN MONITOR PO INTAKE AND ENCOURAGE SUPPLEMENT RECOMMEND D/C FLUID RESTRICTION R/T ELEVATED SERUM NA
--- NOTE | 2024-09-07 14:17 | MHC.CM.PN ---
IMM 09/07/24, PT MEDICALLY CLEARED FOR DC TO STR AT [facility], PT'S DTR/ALT HCP EMILI [phone] AWARE AND AGREEABLE TO PLAN, PT ALSO AGREEABLE TO [facility] FOR BLS TRANSPORT AT 4PM.
== END 2024-09-07 16:27 | disposition skilled nursing facility (03) | DRG 193 ==
LOC: HO.ED 14:10 → HO.EDOVER 15:48 → HO.IMC 20:16
PROVIDERS: Family Medicine; Internal Medicine; Physician Assistant Medical; Student in an Organized Health Care Education/Training Program; Admitting Provider Hospitalist; Emergency Provider Emergency Medicine; PCP Internal Medicine; Visit Provider Internal Medicine
DX: J15.9 Unspecified bacterial pneumonia (principal); I50.23 Acute on chronic systolic (congestive) heart failure; J96.01 Acute respiratory failure with hypoxia; N17.0 Acute kidney failure with tubular necrosis; J44.0 Chronic obstructive pulmonary disease with (acute) lower respiratory infection; I13.0 Hypertensive heart and chronic kidney disease with heart failure and stage 1 through stage 4 chronic kidney disease, or unspecified chronic kidney disease; J44.1 Chronic obstructive pulmonary disease with (acute) exacerbation; I48.91 Unspecified atrial fibrillation; I50.82 Biventricular heart failure; I07.1 Rheumatic tricuspid insufficiency; I27.20 Pulmonary hypertension, unspecified; I25.10 Atherosclerotic heart disease of native coronary artery without angina pectoris; D50.9 Iron deficiency anemia, unspecified; E87.5 Hyperkalemia; N18.9 Chronic kidney disease, unspecified; F17.210 Nicotine dependence, cigarettes, uncomplicated; Z71.6 Tobacco abuse counseling; Z20.822 Contact with and (suspected) exposure to COVID-19; Z79.82 Long term (current) use of aspirin; Z79.899 Other long term (current) drug therapy
CPT/HCPCS: 0241U; 36415; 71045; 71250; 74176; 76705; 76775; 80048; 80053; 80076; 81001; 82272; 82550; 82570; 82803; 83540; 83605; 83735; 83880; 84145; 84300; 84484; 85014; 85018; 85025; 85027; 85610; 85730; 86850; 86900; 86901; 87040; 87449; 87493; 87507; 87633; 87640; 87641; 87899; 93005; 93306; 94640; 94660; 97163; 97530; 99285; C1758; J0456; J0696; J1160; J1205; J1644; J1836; J1940; J2020; J2270; J2470; J2543; J2919; J3475; J3480; Q9957

== ENCOUNTER → 2024-08-27 12:36 | Outpatient (BNV) | payer MEDICARE, MEDICAID, SELFPAY | PROVIDERS: Emergency Provider Emergency Medicine; Visit Provider Radiology Diagnostic Radiology | DX: R06.02 Shortness of breath (principal) | CPT/HCPCS: 71045 ==

== ENCOUNTER → 2024-08-27 12:36 | Outpatient (BNV) | payer MEDICARE, MEDICAID, SELFPAY | PROVIDERS: Admitting Provider Hospitalist; Emergency Provider Emergency Medicine; Visit Provider Internal Medicine | DX: R94.31 Abnormal electrocardiogram [ECG] [EKG] (principal) | CPT/HCPCS: 93010 ==

== ENCOUNTER 2024-08-27 15:47 | Outpatient (BNV) | payer MEDICARE, MEDICAID, SELFPAY | END 2024-08-30 15:03 | PROVIDERS: Admitting Provider Hospitalist; Emergency Provider Emergency Medicine; PCP Internal Medicine; Visit Provider Radiology Diagnostic Radiology | DX: J18.9 Pneumonia, unspecified organism (principal) | CPT/HCPCS: 71250 ==

== ENCOUNTER 2024-08-27 15:47 | Outpatient (BNV) | payer MEDICARE, MEDICAID, SELFPAY | END 2024-09-02 21:00 | PROVIDERS: Admitting Provider Hospitalist; Emergency Provider Emergency Medicine; PCP Internal Medicine; Visit Provider Radiology Diagnostic Radiology | DX: R06.00 Dyspnea, unspecified (principal) | CPT/HCPCS: 71045 ==

== ENCOUNTER 2024-08-27 15:47 | Outpatient (BNV) | payer MEDICARE, MEDICAID, SELFPAY | END 2024-08-28 07:00 | PROVIDERS: Admitting Provider Hospitalist; Emergency Provider Emergency Medicine; PCP Internal Medicine; Visit Provider Internal Medicine | DX: I36.1 Nonrheumatic tricuspid (valve) insufficiency (principal); I51.7 Cardiomegaly | CPT/HCPCS: 93306 ==

== ENCOUNTER 2024-08-27 15:47 | Outpatient (BNV) | payer MEDICARE, MEDICAID, SELFPAY | END 2024-08-31 00:30 | PROVIDERS: Admitting Provider Hospitalist; Emergency Provider Emergency Medicine; PCP Internal Medicine; Visit Provider Radiology Neuroradiology | DX: N17.9 Acute kidney failure, unspecified (principal); J90 Pleural effusion, not elsewhere classified | CPT/HCPCS: 76775 ==

== ENCOUNTER 2024-08-27 15:47 | Outpatient (BNV) | payer MEDICARE, MEDICAID, SELFPAY | END 2024-09-03 19:54 | PROVIDERS: Admitting Provider Hospitalist; Emergency Provider Emergency Medicine; PCP Internal Medicine; Visit Provider Radiology Diagnostic Radiology | DX: R10.9 Unspecified abdominal pain (principal) | CPT/HCPCS: 74176; 76705 ==

== ENCOUNTER → 2024-08-27 15:47 | Outpatient (BNV) | payer MEDICARE, MEDICAID, SELFPAY | PROVIDERS: Admitting Provider Hospitalist; Emergency Provider Emergency Medicine; PCP Internal Medicine; Visit Provider Internal Medicine Hypertension Specialist | DX: N17.9 Acute kidney failure, unspecified (principal) | CPT/HCPCS: 99223; 99232 ==

== ENCOUNTER → 2024-08-27 15:47 | Outpatient (BNV) | payer MEDICARE, MEDICAID, SELFPAY | PROVIDERS: Admitting Provider Hospitalist; Emergency Provider Emergency Medicine; PCP Internal Medicine; Visit Provider Internal Medicine | DX: I50.9 Heart failure, unspecified (principal); I48.91 Unspecified atrial fibrillation; J44.1 Chronic obstructive pulmonary disease with (acute) exacerbation | CPT/HCPCS: 99223 ==

== ENCOUNTER → 2024-08-27 15:47 | Outpatient (BNV) | payer MEDICARE, MEDICAID, SELFPAY | PROVIDERS: Admitting Provider Hospitalist; Emergency Provider Emergency Medicine; PCP Internal Medicine; Visit Provider Internal Medicine Gastroenterology | DX: K80.20 Calculus of gallbladder without cholecystitis without obstruction (principal) | CPT/HCPCS: 99223 ==

== ENCOUNTER → 2024-08-27 15:47 | Outpatient (BNV) | payer MEDICARE, MEDICAID, SELFPAY | PROVIDERS: Admitting Provider Hospitalist; Emergency Provider Emergency Medicine; PCP Internal Medicine; Visit Provider Surgery | DX: K80.20 Calculus of gallbladder without cholecystitis without obstruction (principal) | CPT/HCPCS: 99222 ==

== ENCOUNTER → 2024-08-27 15:47 | Outpatient (BNV) | payer MEDICARE, MEDICAID, SELFPAY | PROVIDERS: Admitting Provider Hospitalist; Emergency Provider Emergency Medicine; PCP Internal Medicine; Visit Provider Hospitalist | DX: I48.91 Unspecified atrial fibrillation (principal); I50.9 Heart failure, unspecified | CPT/HCPCS: 99223; 99232; 99233 ==

== ENCOUNTER 2024-10-15 12:41 | Outpatient (AMB) | payer MEDICARE, MEDICAID, SELFPAY ==
[2024-10-15 12:46] VITALS: BP 108/58; PULSE 72
--- NOTE | 2024-10-15 12:46 | A.OFFVIS_ITS ---
Vital Signs 10/15/24 12:46 Height 5 ft 5 in BMI Reason not done Patient refused/unable BP 108/58 L Blood Pressure Location Lt brachial Position Sitting Pulse 72 Pulse Source Pulse Oximeter Intake Visit Reasons: 6 mth fu Allergies atorvastatin Adverse Reaction (Intermediate, Verified 08/27/24 12:09) myalgias Medication List - Last Reconciled 10/15/24 by Ross Chung NP acetaminophen 650 mg (2 x 325 mg) PO Q6H PRN 30 days [adult pull ups/ Extra large As directed] amlodipine 10 mg PO DAILY aspirin 81 mg PO DAILY blood pressure monitor (Blood Pressure Kit) As directed brimonidine 0.2% 1 drp ophthalmic (eye) TID diaper,brief,adult,disposable (Depend Underwear For Women XL) To be changed 6 to 8 times a day due to overactive bladder. diclofenac sodium 1% 4 grams topical QID PRN ferrous sulfate 324 mg PO DAILY fesoterodine ER 4 mg PO DAILY PRN furosemide 40 mg See Protocol PO DAILY gabapentin 100 mg PO BID PRN metoprolol succinate ER 25 mg See Protocol PO BID omeprazole 20 mg PO DAILY@0630,1630 PRN [Orthpedic Shoes As directed] potassium chloride ER 20 mEq PO DAILY [Raised [place] Seat with handels As directed Osteoarthritis ] [RECLINER LIFT CHAIR use as directed; ] [ROLLATOR As directed] rosuvastatin 20 mg PO BEDTIME tizanidine 2 mg PO BID PRN 30 days [wheel chair As directed] [wipes As directed] HPI Comments Details: This is an 89-year-old female presenting for hospital discharge follow-up visit. Patient with medical history of hypertension, IN in the early 2 thousands with PCI and stenting, and chronic tobacco use. The patient was recently admitted to the hospital for acute hypoxic respiratory failure secondary to acute on chronic heart failure, which was managed with a Lasix drip. During her hospitalization she also experienced AFib with RVR which is new, and she was treated with Cardizem drip. Her hospital course was complicated by COPD exacerbation which was treated with steroids and CPAP therapy as well as bacterial information, acute cholecystitis, and NEEL. The patient was started on Eliquis therapy and was transitioned to metoprolol and oral Lasix prior to discharge. The patient was discharged to a long term facility for continued care. She presents today in a stretcher from the facility, accompanied by her daughter. The patient reports feeling generally well and denies any symptoms of exertional chest pain, shortness of breath, palpitations, dizziness, fatigue, orthopnea, PND, lower leg edema, presyncope, or syncope. The patient has a Fajardo catheter today and the daughter states that it has been put in for recurrent urine retention. Regarding her medications, the patient is unsure of the specific medication she is currently taking but reports adherence to the prescribed regimen as there were administered by nursing staff at the [facility]. Medications reconciled with the list provided by the SNF. [facility] Medical History (Updated 10/19/24 @ 13:54 by Ross Chung NP) Macular degeneration Overweight (BMI 25.0-29.9) COVID-19 vaccine administered History of COVID-19 Restrictive lung disease Edema Current smoker Iron deficiency anemia Tobacco abuse Carotid bruit Obesity (BMI 30-39.9) Depression Insomnia Allergic rhinitis Elevated TSH GERD without esophagitis Impaired fasting glucose Anemia Knee osteoarthritis Vitamin D deficiency Chronic kidney disease (CKD), stage III (moderate) Pure hypercholesterolemia Benign essential hypertension Coronary artery disease Surgical History Hx of total knee arthroplasty Hx of colonoscopy Hx of cardiac cath Hx of bilateral cataract extraction History of hysterectomy Family History Father Medical history unknown Mother CVD (cardiovascular disease) Social History Household Members: Family Household Members Other:: daughter and grandson live with patient. Housing: House Are you a primary nurse behavioral health care to a significant other at home: No Do you presently have visiting nurse or other home services: Yes (elder care) Unable to assess alcohol history related to: Unknown Alcohol intake: never Comment: aware of trip hazard Patient Tobacco Use Status: Current everyday Tobacco user Tobacco use type: Cigarette Cigarette Packs Per Day: 1 Cigarettes Per Day: 20.0 Years Smoked: 70 e-Cigarette/Vaping Use: Never Used Second Hand Smoke Exposure: Yes service: No Current occupational status: retired and disabled Cognitive needs: No (cane/walker) Hearing needs: No Vision needs: No Review of Systems Const Denies weakness ENT Denies dizziness Card Denies chest pain, Denies chest pain with activity, Denies syncope, Denies rapid heart rate, Denies pedal edema, Denies edema, Denies leg edema, Denies lightheadedness, Denies palpitations, Denies dyspnea, Denies dyspnea on exertion and Denies orthopnea Resp Denies cough, Denies dyspnea and Denies dyspnea on exertion GI Denies hematochezia and Denies change in stool character Musc Denies abnormal gait, Denies muscle cramps, Denies muscle weakness, Denies numbness, Denies radiating pain into limb and Denies tingling Neuro Denies abnormal gait, Denies dizziness, Denies syncope, Denies numbness, Denies tingling and Denies weakness Endo Denies palpitations Physical Exam Vital Signs: Last Vital Signs Pulse 72 10/15/24 12:46 BP 108/58 L 10/15/24 12:46 Const General: cooperative, healthy appearing, comfortable and no acute distress Orientation/consciousness: patient oriented x3 HEENT Head: Yes normal to inspection Neck Neck: Yes normal visual inspection, Yes trachea midline and Yes supple Chest Chest palpation & inspection: normal inspection of the chest Resp Effort & Inspection: normal respiratory effort Auscultation: clear to auscultation bilaterally, no crackles, no rales, no rhonchi and no wheezes Cardio Jugular venous distension: no JVD Palpation: normal PMI Rhythm: abnormal rhythm irregularly irregular Heart sounds: S1 normal heart sound present, S2 normal heart sound present, no click, no gallops, no murmurs and no rubs Peripheral pulses: Peripheral pulses 2+ throughout GI Inspection: Yes normal to inspection Palpation (GI): Soft to palpation Auscultation: normal bowel sounds Other: Fajardo catheter present Skin General skin exam: no rashes or lesions noted Neuro General: patient oriented x3 Extrem General: Yes normal to inspection, No no pedal edema, No calf tenderness and No edema Psych Appearance: grossly normal Mental Status: mental status grossly normal Speech and movement: Normal speech and movement present Office Procedures EKG Details: EKG today showed atrial fibrillation, 98 beats per minute, rightward axis, [place] [id number], Complete Assessment & Plan Assessment & Plan (1) Afib: Code(s): I48.91 - Unspecified atrial fibrillation Category: Medical Plan: New onset of AFib during the hospital visit. EKG today was AFib, rate controlled. Patient is asymptomatic with the AFib. Medications list from SNF shows patient has not been on Eliquis therapy since discharge. Continue metoprolol XL therapy for rate control approach. Explained to the patient and the daughter the risk of stroke with this. We will start low-dose Eliquis the rapy for full anticoagulation therapy. Discussed about higher risk of bleeding. No history of falls. We will repeat labs. (2) Congestive heart failure: Code(s): I50.9 - Heart failure, unspecified Category: Medical Plan: 08/28/2024-echo study showed a reduced left ventricular ejection fraction about 40%, with moderate to severe tricuspid valve regurgitation, and moderate pulmonary hypertension. Patient is currently on 40 mg Lasix daily. Clinically euvolemic today. (3) Coronary artery disease: Comment: Previous inferoposterior wall IN. She reports that she underwent PCI 2004. I looked to [employer] system but the reports are not available for the cardiac catheterization which was done at that time. Code(s): I25.10 - Atherosclerotic heart disease of [place] coronary artery without angina pectoris Category: Medical Qualifiers: Coronary Disease-Associated Artery/Lesion type: [place] artery [place] vs. transplanted heart: [place] heart Associated angina: without angina Qualified Code(s): I25.10 - Atherosclerotic heart disease of [place] coronary artery without angina pectoris Plan: Continue statin therapy. (4) Benign essential hypertension: Code(s): I10 - Essential (primary) hypertension Category: Medical Plan: Blood pressure today is well-controlled. Continue amlodipine. Ideally blood pressure less than 130/84. (5) Hospital discharge follow-up: Code(s): Z09 - Encounter for follow-up examination after completed treatment for conditions other than malignant neoplasm Plan: As above. Patient will follow-up in 4 months. In the interim, advised to call the office case of any concerns or change in symptoms. This note was generated using voice recognition software. While every effort has been made to ensure accuracy and proper data management consultant, there may be occasional errors that could affect the content or meaning of the described symptoms. Orders: Orders Complete Blood Count no Diff 3 Months Ross Chung NP I48.91 - Unspecified atrial fibrillation Basic Metabolic Panel 3 Months Ross Chung NP I48.91 - Unspecified atrial fibrillation CA echo transthoracic complete 3 Months Ross Chung NP I48.91 - Unspecified atrial fibrillation AMB EKG-In Office 10/15/24 Ross Chung NP I48.91 - Unspecified atrial fibrillation Medications: New apixaban 2.5 mg PO BID 60 tabs 5RF Ross Chung NP Changed From furosemide 40 mg See Protocol PO BID@0900,1800 To furosemide 40 mg See Protocol PO DAILY Rocael Phillips MD Coding Level of Care Code Est Pt Level 4 (76311) Diagnoses Afib I48.91 Congestive heart failure I50.9 Coronary artery disease involving [place] coronary artery of [place] heart without angina pectoris I25.10 Coronary Disease-Associated Artery/Lesion type: [place] artery [place] vs. transplanted heart: [place] heart Associated angina: without angina Benign essential hypertension I10 Hospital discharge follow-up Z09 CPT Codes EKG - CPT: 13045-[id number], Complete ([id number]) Time Spent (min) 35 Comment Time spent in reviewing the chart, test results, assessment, counseling and documentation.
--- OUTSIDE RECORDS SUMMARY | 2024-10-15 15:05 | XMS_ITS | Clinical Summary ---
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 2 Active amLODIPine (Norvasc) 10 MG tablet TAKE 1 TABLET BY MOUTH DAILY. NEED APPOINTMENT FOR REFILL 3 Active omeprazole (PriLOSEC) [address] capsule Take 20 mg by mouth in the morning. 3 Active rosuvastatin (Crestor) 20 MG tablet Take 20 mg by mouth in the morning. 3 Active docusate sodium (Colace) 100 MG capsule Take 100 mg by mouth 2 times daily. 2 Active hydroCHLOROthia zide (HYDRODiuril) 25 MG tablet Take 25 mg by mouth in the morning. 3 Active brimonidine (AlphaGAN P) 0.2 % ophthalmic solution INSTILL 1 DROP INTO BOTH EYES 3 TIMES A DAY 3 Active amoxicillin (Amoxil) 500 MG capsule Take 1 capsule (500 mg) by mouth every 8 (eight) hours. 22 capsule 3 Active amoxicillin (Amoxil) 500 MG capsule Please take 4 caps of 500 MG Amoxicillin 1 hour before your appointment for cleaning. 7 capsule 3 Active Social History Tobacco Use Types Packs/Day Years Used Date Smoking Tobacco: Every Day Cigarettes Smokeless Tobacco: Never Tobacco Cessation:Ready to Q uit: Not Asked; Counseling Given: Not Answered Comments No Sex and Gender Information Value Date Recorded Sex Assigned at Female 11/12/2022 1:45 PM EDT Legal Sex Female 1:40 PM EDT Gender Identity Female 11/12/2022 1:45 PM EDT Sexual Orientation Choose not to disclose 2022 1:45 PM EDT Last Filed Vital Signs Vital Sign Reading Time Taken Comments Blood Pressure 159/73 02/27/2023 1:12 PM EDT Pulse 100 02/27/2023 1:12 PM EDT Temperature - - Respiratory Rate - - Oxygen Saturation - - Inhaled Oxygen Concentration - - Weight - - Height - - Body Mass Index - - Plan of Treatment Health Maintenance Due Date Last Done Comments Dental Oral Exam 1935 Depression Screening 1935 SDOH Screening 1935 Alcohol/Substance Use Screening 1947 Zoster Vaccines (1 of 2) 1985 RSV Patients and Pa tients Aged 60 years or older (1 - 1-dose 75+ series) 2010 Pneumococcal Vaccine: 50+ Ye ars (2 of 2 - PCV) 07/31/2012 07/31/2011 DTaP/Tdap/Td Vaccines (1 - Tdap) 12/09/2018 12/09/19 19 Dental Prophylaxis 08/31/2023 02/27/2023 Dental X-Ray: Bitewings 11/24/2023 11/22/2022 Tobacco Screening 02/28/2024 02/27/2023 COVID-19 Vaccine (2 - 2023-2 5 season) 2024 11/23/2020 Influenza Vaccine (#1) 2024 Dental X-Ray: Full Mouth 11/23/2025 11/22/2022 HIB Vaccines Aged Out No longer eligi ble based on patient's age to complete this topic HPV Vaccines Aged Out No longer eligi ble based on patient's age to complete this topic Hepatitis A Vaccines Aged Out No long er eligible based on patient's age to complete this topic Hepatitis B Vaccines Aged Out No long er eligible based on patient's age to complete this topic IPV Vaccines Aged Out No longer eligi ble based on patient's age to complete this topic Meningococcal Vaccine Aged Out No leila grace eligible based on patient's age to complete this topic RSV under 20 months Aged Out No longe r eligible based on patient's age to complete this topic Rotavirus Vaccines Aged Out No longer eligible based on patient's age to complete this topic Procedures Procedure Name Priority Date/Time Associated Diagnosis Comments PROPHYLAXIS - ADULT Routine 02/27/2023 1 :00 PM EDT INTRAORAL - COMPLETE SERIES OF RADIOGRAPHIC IMAGES Routine 11/22/2022 1:00 PM EDT from Last 3 Months or Most Recently Relevant to Health Maintenance Insurance DENTAL - [facility] FULL (MEDICAID) D[facility]AL-[facility] MEDICAID STAND ADULT
== END 2024-10-15 13:30 | disposition home or self-care (01) ==
LOC: HO.HCS 12:41
PROVIDERS: PCP Internal Medicine
DX: I48.91 Unspecified atrial fibrillation (principal); I50.9 Heart failure, unspecified; I25.10 Atherosclerotic heart disease of native coronary artery without angina pectoris; I10 Essential (primary) hypertension; Z09 Encounter for follow-up examination after completed treatment for conditions other than malignant neoplasm
CPT/HCPCS: 99214

== ENCOUNTER → 2024-10-15 12:41 | Outpatient (BNVA) | payer MEDICARE, MEDICAID, SELFPAY | PROVIDERS: PCP Internal Medicine | DX: Z09 Encounter for follow-up examination after completed treatment for conditions other than malignant neoplasm (principal); I11.0 Hypertensive heart disease with heart failure; I50.9 Heart failure, unspecified; I48.91 Unspecified atrial fibrillation; I25.10 Atherosclerotic heart disease of native coronary artery without angina pectoris | CPT/HCPCS: 93005; 99212 ==

== ENCOUNTER 2024-12-27 12:30 | Inpatient (IN) | payer MEDICARE, MEDICAID, SELFPAY ==
[2024-12-27] VITALS (16 sets, daily range): BP systolic 88–142; BP diastolic 41–87; PULSE 75–121; RESP 15–26; TEMP 35.7–36.4; O2SAT 91–96; BMI 33.3
--- NOTE | ~2024-12-27 | XR_ITS ---
CLINICAL HISTORY: fall Single view of the chest. COMPARISON: XR chest dated 09/02/24 at 20:52 EST FINDINGS: Cardiomegaly. Atherosclerotic thoracic aorta. Prominence of the central pulmonary vasculature. Bronchial wall thickening. Blunting of the left costophrenic angle. No pneumothorax. Rightward curvature of the mid thoracic spine. No acute fracture. Stable well corticated ossification present along the left glenohumeral joint. IMPRESSION: 1. Cardiomegaly with pulmonary vascular congestion and likely pulmonary edema. 2. Small left pleural effusion. This document has been electronically signed by: Dwayne Landa MD on 12/27/2024 13:50:14
--- NOTE | ~2024-12-27 | XR_ITS ---
CLINICAL HISTORY: trauma Four views of the right knee. COMPARISON: XR right knee dated 08/18/23 at 00:16 EST FINDINGS: No suprapatellar joint effusion. Atherosclerotic vascular calcifications. Joint spaces are maintained. Tricompartment osteophytes. Medial joint space loss. Visualized portions of the distal femur, patella, and proximal tibia and fibula appear intact. IMPRESSION: 1. No radiographic evidence of acute injury to the right knee. 2. Tricompartment degenerative changes of the right knee most pronounced within the medial compartment. This is worsened since prior imaging. This document has been electronically signed by: Dwayne Landa MD on 12/27/2024 13:51:07
--- NOTE | ~2024-12-27 | US_ITS ---
EXAMINATION: US TRIPLEX UPPER EXTREMITY, LEFT CLINICAL INFORMATION: Edema/swelling, left upper extremity. COMPARISON: None available. TECHNIQUE: Color-flow triplex imaging with spectral analysis and compression Doppler was performed on the left upper extremity. FINDINGS: The left internal jugular, subclavian, and axillary veins are patent with normal spectral Doppler waveforms. The imaged segment of the left brachiocephalic vein is patent. Spectral doppler waveforms are normal. The brachial, basilic, cephalic, radial, and ulnar veins demonstrated normal spectral Doppler waveforms and compressibility. Edema pattern, soft tissues without fluid collections.. US/US venous duplex UE LT IMPRESSION: No acute deep venous thrombosis interrogated veins, left upper extremity. Negative for DVT. Electronically signed by: Amaury Perez MD 12/28/2024 10:37 AM EDT
--- NOTE | ~2024-12-27 | XR_ITS ---
CLINICAL HISTORY: trauma Four views of the left knee. COMPARISON: XR left knee dated 08/18/23 at 00:16 EST XR left knee dated 07/09/22 at 11:21 EST FINDINGS: No appreciable suprapatellar joint effusion. Right total knee arthroplasty with patellar component. There is inferior and lateral positioning of the patella, similar to prior imaging. This appears unchanged from prior imaging. There is lucency along the cranial aspect of the hardware within the patella, increased from prior imaging and suggestive of chronic loosening/resorption of portions of the patella. Distal femur and proximal tibia and fibula appear intact. Atherosclerotic vascular calcifications. IMPRESSION: 1. Stable alignment of left total knee arthroplasty. No acute fracture identified. 2. Increased lucency along the superior margin of the patellar component suggestive of chronic loosening/resorption of portions of the upper pole of the patella. 3. 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 Recommend correlation with clinical history. This document has been electronically signed by: Dwayne Landa MD on 12/27/2024 13:47:39
--- NOTE | ~2024-12-27 | CT_ITS ---
CLINICAL HISTORY: trauma CT head without contrast. COMPARISON: None FINDINGS: The visualized paranasal sinuses are clear. Fluid completely fills the right mastoid air cells and middle ear. Fluid present within the left mastoid air cells. No temporal bone fracture identified. No calvarial fracture. Atherosclerotic intracranial vasculature. No evidence for mass or mass effect. No intracranial hemorrhage or abnormal extra-axial fluid collection. No CT evidence of acute infarct. The ventricles are proportional with the degree of mild global cerebral volume loss without evidence of hydrocephalus. Basilar cisterns are patent. There are periventricular areas of low attenuation compatible with mild white matter small vessel disease. Posterior fossa appears unremarkable. IMPRESSION: 1. No acute intracranial findings. 2. Fluid in the right mastoid air cells and middle ear suggestive of otomastoiditis. Additionally there is fluid within the left mastoid air cells. This document has been electronically signed by: Dwayne Landa MD on 12/27/2024 14:05:45
--- NOTE | ~2024-12-27 | CT_ITS ---
CLINICAL HISTORY: trauma CT cervical spine without contrast. COMPARISON: None FINDINGS: Straightening with reversal of normal cervical lordosis. Grade 1 anterolisthesis of C7 on T1, degenerative. Vertebral body heights are maintained. Skull base and intracranial structures appear normal. Partially visualized [id number] bilateral pleural effusions. Calcified plaque present at the carotid bulbs bilaterally. Heterogeneous thyroid parenchyma without definitive nodule identified. C2-C3: Facet joint arthrosis. No significant neural foraminal narrowing. C3-C4: Loss of disc space height. Posterior disc osteophyte complex. Facet joint arthrosis. Uncovertebral joint hypertrophy. [id number] bilateral neural foraminal narrowing. C4-C5: Facet joint arthrosis. C5-C6: Anterior marginal osteophytes. Loss of disc space height. Posterior disc osteophyte complex. Uncovertebral joint hypertrophy. Moderate bilateral neural foraminal narrowing. C6-C7: Anterior marginal osteophytes. Loss of disc space height. Uncovertebral joint hypertrophy. Moderate left neural foraminal narrowing. IMPRESSION: 1. No evidence of acute injury to the cervical spine. 2. Straightening with reversal of normal cervical lordosis. 3. Grade 1 anterolisthesis of C7 on T1, degenerative. 4. Moderate to advanced mid to lower cervical spondylosis. This document has been electronically signed by: Dwayne Landa MD on 12/27/2024 14:08:48
--- NOTE | ~2024-12-27 | US_ITS ---
CLINICAL HISTORY: no pulse cold G toe blueish Arterial duplex ultrasound right lower extremity Comparison: None Findings: Grayscale images demonstrate heavy atherosclerotic changes in the right common femoral artery and right superficial femoral arteries well as the right popliteal artery and posterior tibial artery. Poor visualization of the mid and distal right SFA, right popliteal artery, and right posterior tibial artery. Monophasic waveforms with low flow velocities throughout the right lower extremity. IMPRESSION: 1. Multifocal moderate and severe stenoses with overall greatly diminished right lower extremity arterial circulation demonstrating monophasic waveforms and low peak systolic velocities throughout. Findings suggest inflow stenosis as well as in situ stenoseis. This document has been electronically signed by: Ozzy Farnsworth MD on 12/28/2024 01:44:46
--- NOTE | 2024-12-27 12:47 | ECG_ITS ---
Test Reason : FALL Blood Pressure : */* mmHG Vent. Rate : 85 BPM Atrial Rate : * BPM P-R Int : * ms QRS Dur : 70 ms QT Int : 378 ms P-R-T Axes : * 84 52 degrees QTcB Int : 449 ms Atrial fibrillation Abnormal ECG When compared with ECG of 27-Aug-2024 12:59, Vent. rate has decreased by 47 bpm Referred By: Neto Edwards Electronically Signed By: ESTHER FUENTES MD
--- NOTE | 2024-12-27 13:14 | PC.NURSE ---
patient is an 89-year-old female presenting from home via EMS for mechanical falls x 2. Patient refused transport the first event and was placed in bed. Patient was unable to stand after the 2nd event. Patient with medical history of hypertension, [place] in the early 2 thousands with PCI and stenting, and chronic tobacco use, acute hypoxic respiratory failure secondary to acute on chronic heart failure, AFib with RVR and exac COPD. Alert and oriented, extremely [place]. Lungs with diffuse exp/inp wheezing throughout. Respiratory rate in the 20's, sl labored with audible wheezes. Abdomen large soft, non-tender with positive bowel sounds. Purewick applied. Sigificant edema with some redness noted to bilat LE - L>R.
[2024-12-27 13:16] LABS: MANUAL DIFF FLAG NO
[2024-12-27 13:22] LABS: Eosinophils Absolute Auto 0.1 X10*3/uL (0.0-0.4); Eosinophils Percent Auto 0.9 % (0-4); Hemoglobin 9.7 g/dl (12.0-16.0); Imm Gran Abs Auto 0.05 X10*3/uL (0.00-0.03); Imm Gran Pct Auto 0.5 % (0.0-0.4); Lymphocytes Percent Auto 11.2 % (20-40); Mean Corpuscular Hemoglobin 22.2 pg (27.0-33.0); Monocytes Percent Auto 6.8 % (2-11); PLT CLUMP 1; Red Cell Distribution Width 20.9 % (11.0-16.0); SCAN SMEAR FLAG 1
[2024-12-27 13:24] LABS: Basophils Percent Auto 0.3 % (0-2); Hematocrit 34.1 % (37.0-47.0); Lymphocytes Absolute Auto 1.2 X10*3/uL (1.2-4.9); Mean Corpuscular HGB Conc 28.4 g/dl (31.0-35.0); Mean Corpuscular Volume 78.2 fL (80.0-98.0); Monocytes Absolute Auto 0.7 X10*3/uL (0.1-1.2); NRBC Pct Auto 0.2 /100WBC (0.0-0.2); Neutrophils Absolute Auto 8.7 x10*3/uL (2.0-8.3); Neutrophils Percent Auto 80.3 % (45-73); Red Blood Count 4.36 X10*6/uL (4.20-5.50)
--- NOTE | 2024-12-27 13:27 | ED.GENADULT ---
HPI - General Adult General Chief complaint: Fall Stated complaint: Bi lat leg pain, fell @1:30am Time Seen by Provider: 12/27/24 12:39 Source: patient, RN notes reviewed and old records reviewed Mode of arrival: EMS Limitations: no limitations History of Present Illness ED Provider: Grace HPI narrative: 89-year-old female with past medical history significant for coronary artery disease, COPD, active tobacco dependence, hypertension, cognitive decline, heart failure presents for evaluation of weakness. patient presents from home. Apparently she fell out of bed around 130 this morning. She called 911 and was given a lift assist back into her recliner chair. She refused to come to the hospital at that time. She reports since the fall at 1:30 a.m. she has been unable to bear weight on her right leg she reports generalized weakness and pain to both legs below the knees denies any headache, neck pain, chest pain, shortness of breath, abdominal pain. She is not on supplemental oxygen at baseline denies any fevers or chills she is on Eliquis due to history of AFib Related Data Home Medications ?Medication ?Instructions ?Recorded ?Confirmed brimonidine 0.2 % eye drops 1 drp ophthalmic (eye) TID macular 04/17/23 12/28/24 degeneration omeprazole 20 mg capsule,delayed 20 mg PO DAILY@0630,1630 PRN 05/18/24 12/28/24 release heartburns aspirin 81 mg capsule 81 mg PO DAILY 07/30/24 12/28/24 fesoterodine 4 mg tablet,extended 4 mg PO DAILY PRN Overactive 08/27/24 12/28/24 release 24 hr Bladder gabapentin 100 mg capsule 100 mg PO BID PRN Pain 08/27/24 12/28/24 rosuvastatin 20 mg tablet 20 mg PO BEDTIME 08/27/24 12/28/24 acetaminophen 650 mg 650 mg PO Q8H PRN Pain 12/28/24 12/28/24 tablet,extended release Previous Rx's ?Medication ?Instructions ?Recorded RECLINER LIFT CHAIR #1 ea 07/26/20 Raised [place] Seat with handels #1 ea 02/08/22 ROLLATOR #1 ea 10/23/22 blood pressure monitor (Blood #1 ea 10/23/22 Pressure Kit) Orthpedic Shoes #1 ea 04/12/23 diaper,brief,adult,disposable #68 ea 04/02/24 (Depend Underwear For Women XL) adult pull ups/ Extra large #1 ea 04/24/24 wipes #5 ea 06/18/24 tizanidine 2 mg tablet 2 mg PO BID PRN muscle spasms/leg 09/21/24 cramps 30 days #60 tabs Portable ramp #1 ea 10/21/24 wheel chair #1 ea 10/21/24 apixaban 2.5 mg tablet 2.5 mg PO BID #60 tabs 10/27/24 metoprolol succinate 25 mg 25 mg PO BID #60 tabs 11/06/24 tablet,extended release 24 hr amlodipine 10 mg tablet 10 mg PO DAILY #90 tabs 11/09/24 potassium chloride 20 mEq 20 meq PO DAILY 90 days #90 tabs 11/10/24 tablet,extended release(part/cryst) diclofenac sodium 1 % topical gel 4 g topical QID PRN for pain #100 12/14/24 grams vibegron 75 mg tablet (Gemtesa) 75 mg PO DAILY 30 days #30 tabs 12/14/24 furosemide 40 mg tablet 40 mg PO DAILY #30 tabs 12/22/24 Allergies Allergy/AdvReac Type Severity Reaction Status Date / Time atorvastatin AdvReac Intermediate myalgias Verified 12/27/24 12:55 Review of Systems Constitutional: Constitutional: Denies body ache(s), Denies chills, Denies frequent falls and Reports weakness Eyes: Eyes: Denies blurry vision ENT: Denies vertigo, Denies dizziness and Denies neck pain Cardiovascular: Cardiovascular: Denies chest pain and Denies dyspnea Respiratory: Respiratory: Denies cough and Denies dyspnea Gastrointestinal: Gastrointestinal: Denies abdominal pain, Denies nausea and Denies vomiting Musculoskeletal: Musculoskeletal: Reports arthralgias, Reports joint swelling, Reports limited range of motion, Denies neck pain, Denies radiating pain into limb, Reports stiffness and Denies tingling Integumentary/Breasts: Skin/Breast: Denies rash Neurologic: Denies vertigo, Denies dizziness, Denies frequent falls, Denies tingling and Reports weakness Psychiatric: Psychiatric: Denies anxiety PMFSH Past Medical History Medical History (Updated 12/28/24 @ 12:59 by Miko Marley MD) Macular degeneration Overweight (BMI 25.0-29.9) COVID-19 vaccine administered History of COVID-19 Restrictive lung disease Edema Current smoker Iron deficiency anemia Tobacco abuse Carotid bruit Obesity (BMI 30-39.9) Depression Insomnia Allergic rhinitis Elevated TSH GERD without esophagitis Impaired fasting glucose Anemia Knee osteoarthritis Vitamin D deficiency Chronic kidney disease (CKD), stage III (moderate) Pure hypercholesterolemia Benign essential hypertension Coronary artery disease Surgical History Hx of total knee arthroplasty Hx of colonoscopy Hx of cardiac cath Hx of bilateral cataract extraction History of hysterectomy Family History Family History Father Medical history unknown Mother CVD (cardiovascular disease) Social History Social History Household Members: Other Household Members Other:: Daughter and grandson Housing: Apartment Are you a primary urgent care technician to a significant other at home: No Do you presently have visiting nurse or other home services: Yes (elder care) Unable to assess alcohol history related to: Unknown Alcohol intake: never Comment: aware of trip hazard Patient Tobacco Use Status: Current everyday Tobacco user Tobacco use type: Cigarette Cigarette Packs Per Day: 1 Cigarettes Per Day: 20.0 Years Smoked: 70 Smoked in Last 30 Days: Yes e-Cigarette/Vaping Use: Never Used Second Hand Smoke Exposure: Yes Use of substances other than those prescribed or required for medical reasons: No Currently Displaying Signs/Symptoms of Drug Intoxication Withdrawal: No Advance Directives: No Advance Directives Information Provided: Yes Do you have a plan to hurt others: No Plan Patient : No service: No Current occupational status: retired and disabled Cognitive needs: No (cane/walker) Hearing needs: No Vision needs: No Physical Exam ED Vital Signs: Vital Signs - 24 hr 12/27/24 14:00 12/27/24 16:00 12/27/24 18:00 Temperature Pulse Rate 75 91 99 Respiratory Rate 15 16 19 Blood Pressure 110/51 L 97/41 L 94/53 L Pulse Oximetry 96 94 94 Oxygen Delivery Method Room Air Room Air Room Air 12/27/24 18:23 12/27/24 19:08 12/27/24 20:00 Temperature Pulse Rate 80 108 H Respiratory Rate 19 17 Blood Pressure 101/43 L 105/54 L 105/56 L Pulse Oximetry 91 L Oxygen Delivery Method Room Air 12/27/24 20:38 Temperature 96.3 F L Pulse Rate Respiratory Rate Blood Pressure Pulse Oximetry Oxygen Delivery Method BMI result Body Mass Index 33.3 Const General: comfortable, no acute distress, alert and awake Nutritional Appearance: well nourished Orientation/consciousness: patient oriented x3 HENMT Head: Yes normocephalic and Yes atraumatic Eyes Eyelids: Yes eyelids normal Conjunctivae: conjunctivae normal Sclerae: sclerae normal Corneas: corneas normal Pupils: Equal, round and reactive pupils present EOM: EOMs intact bilaterally Neck Neck: Yes full ROM Resp Effort & Inspection: normal respiratory effort, able to speak in complete sentences, no audible wheezes and not labored Auscultation: clear to auscultation bilaterally Cardio Other: 2 to 3+ bilateral pitting edema to the lower extremities. no significant erythema, no open wounds or drainage Rate: regular rate Rhythm: regular rhythm GI Inspection: No distended Palpation (GI): Soft to palpation, not firm, nontender, no guarding and not rigid Skin General skin exam: elasticity normal Neuro General: patient oriented x3 Cranial nerves: Yes Equal, round and reactive pupils present and Yes Bilaterally intact EOM present Cognition (Neuro): normal cognition Extrem Other: no deformity or rotation to the lower extremities bilaterally. The patient has minimal tenderness to palpation of the right knee Course Reevaluation(s) Reevaluation #1: patient's medical workup largely unremarkable. Her potassium was just above normal at 5.2. Her chest x-ray does show pulmonary vascular congestion. The patient denies shortness of breath in his not been hypoxic. However I was asked to evaluate the patient due to mental status change, she is more somnolent. She does arrives to tactile stimuli but does not open her eyes and answer questions appropriately. Plan for ABG. The patient has been on oxygen for the last 6 hours but does not use chronic oxygen at baseline. Time: 18:31 Reevaluation #2: I reviewed the patient's blood gas, she is very mildly acidotic with a pH of 7.34, pCO2 is 48 and a PaO2 of 63. I do not feel that these numbers adequately explain the patient's acute change in mentation. I ordered repeat labs including an ammonia level, a straight cath that she has not given urine sample I ordered antibiotics for concern of sepsis as she is also hypotensive. She is given ceftriaxone and azithromycin as this would cover UTI and/or pneumonia which of the 2 most likely sources at this time. The patient was evaluated by my attending, Dr Pagan who agrees with plan and recommends narcan in case she took opiates. a sepsis a solution bolus was entered as the patient has active volume overload Time: 19:25 Reevaluation #3: the patient is now awake, alert and oriented before she had received any medications including Narcan or Lasix. She became a lay awake during the Fajardo catheter and remained awake afterwards. Time: 20:23 Additional Reevaluation(s): patient's urinalysis does show acute UTI. We will discussed with the hospitalist for admission of UTI encephalopathy with CHF. Medications Administered Generic Name Dose Route Start Last Admin Trade Name Freq PRN Reason Stop Dose Admin Albuterol/Ipratropium 3 ml 12/28/24 00:00 12/28/24 11:08 Albuterol/Iprat 2.5/0.5mg 3 Ml Ampul.Neb INHALE 3 ml Q6H TIARA Administration Apixaban 2.5 mg 12/27/24 23:50 12/28/24 09:30 Apixaban 2.5 Mg Tablet PO 2.5 mg BID TIARA Administration Aspirin 81 mg 12/28/24 10:40 12/28/24 10:41 Aspirin Enteric Coated 81 Mg Tablet. PO 81 mg DAILY TIARA Administration Clopidogrel Bisulfate 75 mg 12/28/24 10:40 12/28/24 10:41 Clopidogrel Bisulfate 75 Mg Tablet PO 75 mg DAILY TIARA Administration Norepinephrine Bitartrate 8 mg in 250 mls @ 0 mls/hr 12/27/24 21:45 12/28/24 04:09 Levophed IVCONT 0 mcg/kg/min .Q0M TIARA 0 mls/hr Titration Protocol Per Protocol Furosemide 200 mg/ Sodium 100 mls @ 2.5 mls/hr 12/28/24 00:45 12/28/24 01:36 Chloride IVCONT 5 mg/hr .Q24H TIARA 2.5 mls/hr Administration 5 MG/HR Metoprolol Succinate 25 mg 12/28/24 09:15 12/28/24 09:30 Metoprolol Succinate Er 25 Mg Tab.Er.24h PO 25 mg DAILY TIARA Administration Protocol Pantoprazole Sodium 40 mg 12/28/24 06:30 12/28/24 05:33 Pantoprazole Sodium 40 Mg/10 Ml Vial IVPUSH 40 mg DAILY@0630 TIARA Administration Sodium Chloride 3 ml 12/28/24 08:00 12/28/24 08:05 0.9 % Sodium Chloride Flush 3 Ml Syringe IVFLUSH 3 ml QSHIFT TIARA Administration Discontinued Medications Generic Name Dose Route Start Last Admin Trade Name Vadim PRN Reason Stop Dose Admin Ceftriaxone Sodium 1 gm 12/27/24 19:23 12/27/24 20:34 Ceftriaxone Sodium 1 Gm Vial IVPUSH 12/27/24 19:24 1 gm ONCE ONE Administration Digoxin 0.25 mg 12/27/24 23:28 12/27/24 23:54 Digoxin 0.5 Mg/2 Ml Ampul IVPUSH 12/27/24 23:29 0.25 mg ONCE ONE Administration Protocol Digoxin 0.25 mg 12/28/24 00:45 12/28/24 01:27 Digoxin 0.5 Mg/2 Ml Ampul IVPUSH 12/28/24 00:46 0.25 mg ONCE ONE Administration Protocol Fentanyl 50 mcg 12/28/24 08:25 12/28/24 08:30 Fentanyl Citrate/Pf 100 Mcg/2 Ml Vial IVPUSH 12/28/24 08:26 50 mcg ONCE ONE Administration Protocol Furosemide 40 mg 12/27/24 22:00 12/27/24 23:39 Furosemide 40 Mg/4 Ml Vial IVPUSH 40 mg Q12H TIARA Administration Protocol Azithromycin 500 mg/ Sodium 250 mls @ 125 mls/hr 12/27/24 19:23 12/27/24 22:31 Chloride IV 12/27/24 21:22 Infused ONCE ONE Infusion Sodium Chloride 250 mls @ 999 mls/hr 12/27/24 20:30 12/27/24 22:00 Ns IV 12/27/24 20:45 Infused .Q16M TIARA Infusion Albumin Human 100 mls @ 133.333 mls/hr 12/27/24 21:45 12/27/24 22:32 Kedbumin 25 % IV 12/27/24 23:29 Infused Q1H TIARA Infusion Albumin Human 100 mls @ 133.333 mls/hr 12/28/24 01:00 12/28/24 03:28 Kedbumin 25 % IV 12/28/24 02:44 Infused Q1H TIARA Infusion Methylprednisolone Sodium Succinate 125 mg 12/27/24 23:12 12/27/24 23:41 Methylprednisolone Sod Succ 125 Mg Vial IVPUSH 12/27/24 23:13 125 mg ONCE ONE Administration Methylprednisolone Sodium Succinate 40 mg 12/28/24 06:00 12/28/24 05:23 Methylprednisolone Sod Succ 40 Mg/Ml Vial IVPUSH 40 mg Q8H TIARA Administration Morphine Sulfate 2 mg 12/28/24 05:08 12/28/24 05:22 Morphine Sulfate 2 Mg/Ml Cartridge IVPUSH 12/28/24 05:09 2 mg ONCE ONE Administration Protocol Naloxone HCl 2 mg 12/27/24 19:23 12/27/24 20:24 Naloxone Hcl 2 Mg/2 Ml Syringe IVPUSH 12/27/24 19:24 Not Given ONCE ONE Medical Decision Making Medical Decision Making [facility] Narrative: 89-year-old female with past medical history as above presents for evaluation after multiple falls this morning. She reports falling out of bed at 1:30 a.m. this morning and had a lift assist to get back into bed. She then fell again just prior to arrival. She complains of right knee pain primarily but also has pain to her left knee. She believes that the left-sided pain is related to arthritis. given the multiple falls we will get x-rays of the knees bilaterally. She is on Eliquis and we will get a CT scan of the brain. She was placed in a make shift C-collar we will get a CT scan of the cervical spine. Plan for basic labs, urinalysis, EKG. She appears to have global weakness but no focal deficits. Low suspicion for CVA. We will look for metabolic cause of her weakness, if she is medically cleared she may require physical therapy evaluation and case management consideration Differential Diagnosis Differential Diagnoses: The differential diagnosis associated with the presentation includes knee pain Knee fracture Contusion CHF UTI CVA Cervical fracture Admission/Observation Consideration of admission/observation: Escalation of care including admission/observation considered Consult Healthcare Provider Management of the patient was discussed with: Dig[facility] ICU, Emir Rey who will accept transfer of care to the intensive care unit. Lab Data [facility] Lab Attestation statement: I reviewed the patient's lab results. 12/28/24 04:12 12/28/24 04:12 Labs: Lab Results 12/27/24 12/27/24 12/27/24 Range/Units 13:10 13:58 19:01 WBC 10.8 (4.8-10.8) X10*3/uL RBC 4.36 (4.20-5.50) X10*6/uL Hgb 9.7 L (12.0-16.0) g/dl Hct 34.1 L (37.0-47.0) % MCV 78.2 L (80.0-98.0) fL MCH 22.2 L (27.0-33.0) pg MCHC 28.4 L (31.0-35.0) g/dl RDW 20.9 H (11.0-16.0) % Plt Count 243 (160-400) X10*3/uL MPV 10.0 (9.4-12.3) fL Immature Gran % (Auto) 0.5 H (0.0-0.4) % Neut % (Auto) 80.3 H (45-73) % Lymph % (Auto) 11.2 L (20-40) % [place] % (Auto) 6.8 (2-11) % Eos % (Auto) 0.9 (0-4) % Baso % (Auto) 0.3 (0-2) % Lymph # (Auto) 1.2 (1.2-4.9) X10*3/uL [place] # (Auto) 0.7 (0.1-1.2) X10*3/uL Eos # (Auto) 0.1 (0.0-0.4) X10*3/uL Baso # (Auto) 0.0 (0.0-0.2) X10*3/uL Abs Immat Gran (auto) 0.05 H (0.00-0.03) X10*3/uL Absolute Neuts (auto) 8.7 H (2.0-8.3) x10*3/uL Absolute Nucleated RBC 0.020 H (0.0-0.012) X10*3/uL Nucleated RBC % (auto) 0.2 (0.0-0.2) /100WBC O2 Saturation 88.0 % ABG pH at Pt Temp 7.34 L (7.35-7.45) ABG pCO2 at Pt Temp 48 H (32-45) mmHg ABG pO2 at Pt Temp 63 L (83-108) mmHg ABG HCO3 26 (22-26) mmol/L ABG Base Excess (Actual) 0.0 mmol/L Sodium 140 (135-145) mmol/L Potassium 5.2 H D (3.3-5.1) mmol/L Chloride 109 H (96-108) mmol/L Carbon Dioxide 21 L (22-29) mmol/L Anion Gap 15 (12-20) BUN 41 H (9-16) mg/dL Creatinine 1.34 (0.5-1.4) mg/dL Estim Creat Clear Calc 31.6 Estimated GFR 37 POC Glucose (60-115) mg/dL Random Glucose 98 (60-115) mg/dL Lactic Acid (0.5-2.0) mmol/L Calcium 9.4 (8.4-10.2) mg/dL Total Bilirubin 0.6 (0.0-1.0) mg/dL AST 37 H (5-31) U/L ALT 7 (0-31) U/L Alkaline Phosphatase 83 (39-117) U/L Ammonia (13-55) umol/L Total Creatine Kinase 38 (26-140) U/L Troponin I High Sens 20.8 H D (<3.5-17.0) ng/L B-Natriuretic Peptide 966 H (<100) pg/mL Total Protein 6.8 (6.5-8.0) g/dL Albumin 3.3 L (3.5-5.0) g/dL Lipase 19 (8-78) U/L Urine Color Urine Appearance Urine pH (5.0-9.0) Ur Specific [place] (1.005-1.025) Urine Protein (Neg-Trace) mg/dL Urine Glucose (UA) (Negative) mg/dL Urine Ketones (Negative) mg/dL Urine Blood (Negative) Urine Nitrite (Negative) Ur Leukocyte Esterase (Negative) Urine RBC (0-2) /HPF Urine WBC (0-5) /HPF Ur Squamous Epith Cells (0-2) /HPF Urine Bacteria (None Seen) Hyaline Casts (0-2) /LPF Influenza Type A (PCR) NEGATIVE (Negative) Influenza Type B (PCR) NEGATIVE (Negative) RSV RNA Qual (PCR) NEGATIVE (Negative) SARS-CoV-2 RNA (RT-PCR) NEGATIVE (Negative) 12/27/24 12/27/24 12/27/24 Range/Units 19:19 19:53 20:04 WBC 9.2 (4.8-10.8) X10*3/uL RBC 4.69 (4.20-5.50) X10*6/uL Hgb 10.4 L (12.0-16.0) g/dl Hct 37.8 (37.0-47.0) % MCV 80.6 (80.0-98.0) fL MCH 22.2 L (27.0-33.0) pg MCHC 27.5 L (31.0-35.0) g/dl RDW 20.7 H (11.0-16.0) % Plt Count 223 (160-400) X10*3/uL MPV 9.8 (9.4-12.3) fL Immature Gran % (Auto) 0.4 (0.0-0.4) % Neut % (Auto) 72.2 (45-73) % Lymph % (Auto) 17.8 L (20-40) % [place] % (Auto) 7.3 (2-11) % Eos % (Auto) 1.9 (0-4) % Baso % (Auto) 0.4 (0-2) % Lymph # (Auto) 1.6 (1.2-4.9) X10*3/uL [place] # (Auto) 0.7 (0.1-1.2) X10*3/uL Eos # (Auto) 0.2 (0.0-0.4) X10*3/uL Baso # (Auto) 0.0 (0.0-0.2) X10*3/uL Abs Immat Gran (auto) 0.04 H (0.00-0.03) X10*3/uL Absolute Neuts (auto) 6.6 (2.0-8.3) x10*3/uL Absolute Nucleated RBC 0.000 (0.0-0.012) X10*3/uL Nucleated RBC % (auto) 0.0 (0.0-0.2) /100WBC O2 Saturation % ABG pH at Pt Temp (7.35-7.45) ABG pCO2 at Pt Temp (32-45) mmHg ABG pO2 at Pt Temp (83-108) mmHg ABG HCO3 (22-26) mmol/L ABG Base Excess (Actual) mmol/L Sodium 141 (135-145) mmol/L Potassium 4.9 (3.3-5.1) mmol/L Chloride 108 (96-108) mmol/L Carbon Dioxide 24 (22-29) mmol/L Anion Gap 14 (12-20) BUN 40 H (9-16) mg/dL Creatinine 1.39 (0.5-1.4) mg/dL Estim Creat Clear Calc 30.5 Estimated GFR 36 POC Glucose 106 (60-115) mg/dL Random Glucose 106 (60-115) mg/dL Lactic Acid (0.5-2.0) mmol/L Calcium 9.6 (8.4-10.2) mg/dL Total Bilirubin 0.6 (0.0-1.0) mg/dL AST 23 (5-31) U/L ALT 8 (0-31) U/L Alkaline Phosphatase 85 (39-117) U/L Ammonia 29 (13-55) umol/L Total Creatine Kinase (26-140) U/L Troponin I High Sens 21.9 H (<3.5-17.0) ng/L B-Natriuretic Peptide (<100) pg/mL Total Protein 6.8 (6.5-8.0) g/dL Albumin 3.4 L (3.5-5.0) g/dL Lipase (8-78) U/L Urine Color Yellow Urine Appearance Cloudy Urine pH 5.5 (5.0-9.0) Ur Specific [place] 1.020 (1.005-1.025) Urine Protein >=1000 (4+) H (Neg-Trace) mg/dL Urine Glucose (UA) Negative (Negative) mg/dL Urine Ketones Trace (Negative) mg/dL Urine Blood Small (1+) H (Negative) Urine Nitrite Positive H (Negative) Ur Leukocyte Esterase Large (3+) H (Negative) Urine RBC 3-5 H (0-2) /HPF Urine WBC >50 H (0-5) /HPF Ur Squamous Epith Cells 0-2 (0-2) /HPF Urine Bacteria 4+ (None Seen) Hyaline Casts 3-5 (0-2) /LPF Influenza Type A (PCR) (Negative) Influenza Type B (PCR) (Negative) RSV RNA Qual (PCR) (Negative) SARS-CoV-2 RNA (RT-PCR) (Negative) 12/27/24 Range/Units 20:05 WBC (4.8-10.8) X10*3/uL RBC (4.20-5.50) X10*6/uL Hgb (12.0-16.0) g/dl Hct (37.0-47.0) % MCV (80.0-98.0) fL MCH (27.0-33.0) pg MCHC (31.0-35.0) g/dl RDW (11.0-16.0) % Plt Count (160-400) X10*3/uL MPV (9.4-12.3) fL Immature Gran % (Auto) (0.0-0.4) % Neut % (Auto) (45-73) % Lymph % (Auto) (20-40) % [place] % (Auto) (2-11) % Eos % (Auto) (0-4) % Baso % (Auto) (0-2) % Lymph # (Auto) (1.2-4.9) X10*3/uL [place] # (Auto) (0.1-1.2) X10*3/uL Eos # (Auto) (0.0-0.4) X10*3/uL Baso # (Auto) (0.0-0.2) X10*3/uL Abs Immat Gran (auto) (0.00-0.03) X10*3/uL Absolute Neuts (auto) (2.0-8.3) x10*3/uL Absolute Nucleated RBC (0.0-0.012) X10*3/uL Nucleated RBC % (auto) (0.0-0.2) /100WBC O2 Saturation % ABG pH at Pt Temp (7.35-7.45) ABG pCO2 at Pt Temp (32-45) mmHg ABG pO2 at Pt Temp (83-108) mmHg ABG HCO3 (22-26) mmol/L ABG Base Excess (Actual) mmol/L Sodium (135-145) mmol/L Potassium (3.3-5.1) mmol/L Chloride (96-108) mmol/L Carbon Dioxide (22-29) mmol/L Anion Gap (12-20) BUN (9-16) mg/dL Creatinine (0.5-1.4) mg/dL Estim Creat Clear Calc Estimated GFR POC Glucose (60-115) mg/dL Random Glucose (60-115) mg/dL Lactic Acid 1.3 (0.5-2.0) mmol/L Calcium (8.4-10.2) mg/dL Total Bilirubin (0.0-1.0) mg/dL AST (5-31) U/L ALT (0-31) U/L Alkaline Phosphatase (39-117) U/L Ammonia (13-55) umol/L Total Creatine Kinase (26-140) U/L Troponin I High Sens (<3.5-17.0) ng/L B-Natriuretic Peptide (<100) pg/mL Total Protein (6.5-8.0) g/dL Albumin (3.5-5.0) g/dL Lipase (8-78) U/L Urine Color Urine Appearance Urine pH (5.0-9.0) Ur Specific [place] (1.005-1.025) Urine Protein (Neg-Trace) mg/dL Urine Glucose (UA) (Negative) mg/dL Urine Ketones (Negative) mg/dL Urine Blood (Negative) Urine Nitrite (Negative) Ur Leukocyte Esterase (Negative) Urine RBC (0-2) /HPF Urine WBC (0-5) /HPF Ur Squamous Epith Cells (0-2) /HPF Urine Bacteria (None Seen) Hyaline Casts (0-2) /LPF Influenza Type A (PCR) (Negative) Influenza Type B (PCR) (Negative) RSV RNA Qual (PCR) (Negative) SARS-CoV-2 RNA (RT-PCR) (Negative) Radiology Impression Discussion of test interpretation with radiology: I have reviewed the radiologist's reading. Radiologist Impression: patient's CT scan showed questionable otomastoiditis of the right ear. 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 There was no drainage from the right ear and she has no tenderness in the periauricular area. No postauricular edema. This is favored to be a chronic finding Critical Care Time Critical Care Time Critical Care Time: Yes Total Critical Care Time: 40 Attestation: 89-year-old female initially presents for a fall. Found to have UTI, CHF complicated by hypotension. She was treated for sepsis with IV fluids, antibiotics broad spectrum. She also required Lasix and ICU consultation ultimately ICU admission. Discharge Plan Discharge Clinical Impression: Falls, Weakness, CHF (congestive heart failure), Acute UTI Patient Disposition: Admitted As Inpatient Interventions: Admission Worksheet (ED) Last Done: 12/27/24 22:48 Discharge Date/Time: 12/27/24 22:51 Sepsis Bolus Exclusion Sepsis Bolus Exclusion CHF/Renal Failure This patient met severe sepsis criteria due to the following condition(s):: Hypotension In my clinical judgement the administration of 30 ml/kg of crystalloid would be detrimental to this patient due to the patient's following conditions:: NYHA class III or IV Heart Failure(symptoms with low exertion or rest) and Concern for fluid overload Replace the 30 mls/kg with (Zero amount not acceptable and all fluids for severe sepsis must be given at GREATER than 125 mls/hr) Crystalloids amount given in mls: (rate must be at least 150cc/hr): 250 Colloids amount given in mls:: 200
[2024-12-27 13:36] LABS: Platelet Count 243 X10*3/uL (160-400); White Blood Count 10.8 X10*3/uL (4.8-10.8)
[2024-12-27 13:38] LABS: Troponin-I High Sensitivity 20.8 ng/L (<3.5-17.0)
[2024-12-27 13:42] LABS: Alanine Aminotransferase 7 U/L (0-31); Albumin Level 3.3 g/dL (3.5-5.0); Alkaline Phosphatase 83 U/L (39-117); Anion Gap 15 (12-20); Aspartate Amino Transferase 37 U/L (5-31); Bilirubin Total 0.6 mg/dL (0.0-1.0); Blood Urea Nitrogen 41 mg/dL (9-16); Calcium 9.4 mg/dL (8.4-10.2); Carbon Dioxide 21 mmol/L (22-29); Chloride 109 mmol/L (96-108); Creatinine Clr Calc Pharmacy 31.6; Estimated Glomerular Filt Rate 37; Glucose Random 98 mg/dL (60-115); Lipase 19 U/L (8-78); Potassium 5.2 mmol/L (3.3-5.1); Sodium 140 mmol/L (135-145); Total Protein 6.8 g/dL (6.5-8.0)
[2024-12-27 14:26] LABS: B Type Natriuretic Peptide 966 pg/mL (<100)
[2024-12-27 14:44] LABS: Influenza A PCR NEGATIVE (Negative); Influenza B PCR NEGATIVE (Negative); Resp Syncy Virus RNA Qual PCR NEGATIVE (Negative); SARS COV2 PCR INHOUSE NEGATIVE (Negative)
--- NOTE | 2024-12-27 18:40 | PC.NURSE ---
Patient noted to be extremely lethagic and sl responsive to pain. Repeat vital signs obtained and sbp noted to be soft. Difficulty obtaining a pox. Respirations even and non-labored on 2L via NC. Once POX obtained noted to be at 90%. PA notified and into evaluate. ? retaining, o2 therapy discontinued and stat abg ordered. After o2 therapy discontinued pox dipped into 86-88%. Patient placed back on l2 therapy at 1L via NC. Respiratory therapy at the bedside.
[2024-12-27 19:04] LABS: ABG Refer to POC result
[2024-12-27 19:05] LABS: ABG HCO3 26 mmol/L (22-26); ABG pCO2 48 mmHg (32-45); ABG pH 7.34 (7.35-7.45); ABG pO2 63 mmHg (83-108)
[2024-12-27 19:22] LABS: Glucose, Whole Blood 106 mg/dL (60-115)
[2024-12-27 20:01] LABS: Basophils Percent Auto 0.4 % (0-2); Eosinophils Absolute Auto 0.2 X10*3/uL (0.0-0.4); Eosinophils Percent Auto 1.9 % (0-4); Hematocrit 37.8 % (37.0-47.0); Hemoglobin 10.4 g/dl (12.0-16.0); Imm Gran Abs Auto 0.04 X10*3/uL (0.00-0.03); Imm Gran Pct Auto 0.4 % (0.0-0.4); Lymphocytes Absolute Auto 1.6 X10*3/uL (1.2-4.9); Lymphocytes Percent Auto 17.8 % (20-40); MANUAL DIFF FLAG NO; Mean Corpuscular HGB Conc 27.5 g/dl (31.0-35.0); Mean Corpuscular Hemoglobin 22.2 pg (27.0-33.0); Mean Corpuscular Volume 80.6 fL (80.0-98.0); Mean Platelet Volume 9.8 fL (9.4-12.3); Monocytes Absolute Auto 0.7 X10*3/uL (0.1-1.2); Monocytes Percent Auto 7.3 % (2-11); Neutrophils Absolute Auto 6.6 x10*3/uL (2.0-8.3); Neutrophils Percent Auto 72.2 % (45-73); Platelet Count 223 X10*3/uL (160-400); Red Blood Count 4.69 X10*6/uL (4.20-5.50); Red Cell Distribution Width 20.7 % (11.0-16.0); White Blood Count 9.2 X10*3/uL (4.8-10.8)
[2024-12-27 20:09] LABS: Ammonia 29 umol/L (13-55)
[2024-12-27 20:15] LABS: Appearance Urine Cloudy; Color Urine Yellow; Glucose Urine UA Negative (Negative); Leukocyte Esterase Urine Large (3+) (Negative); Nitrite Urine Positive (Negative); PH 5.5 (5.0-9.0); UMIC TRIGGER UACC YES; Urine Blood Small (1+) (Negative); Urine Ketones Trace mg/dL (Negative); Urine Protein >=1000 (4+) mg/dL (Neg-Trace)
[2024-12-27 20:17] LABS: Alanine Aminotransferase 8 U/L (0-31); Albumin Level 3.4 g/dL (3.5-5.0); Alkaline Phosphatase 85 U/L (39-117); Anion Gap 14 (12-20); Aspartate Amino Transferase 23 U/L (5-31); Bilirubin Total 0.6 mg/dL (0.0-1.0); Blood Urea Nitrogen 40 mg/dL (9-16); Calcium 9.6 mg/dL (8.4-10.2); Carbon Dioxide 24 mmol/L (22-29); Chloride 108 mmol/L (96-108); Creatinine Clr Calc Pharmacy 30.5; Estimated Glomerular Filt Rate 36; Glucose Random 106 mg/dL (60-115); Potassium 4.9 mmol/L (3.3-5.1); Sodium 141 mmol/L (135-145); Total Protein 6.8 g/dL (6.5-8.0)
[2024-12-27 20:24] LABS: Troponin-I High Sensitivity 21.9 ng/L (<3.5-17.0)
[2024-12-27 20:27] LABS: Bacteria Urine 4+ (None Seen); Squamous Epithelial Cell Urine 0-2 /HPF (0-2); UACC Culture Trigger YES; WBC Urine >50 /HPF (0-5)
[2024-12-27 20:27] LABS: Lactic Acid 1.3 mmol/L (0.5-2.0)
[2024-12-27] MEDS: Azithromycin 500 MG in 0.9 % Sodium Chloride 250 ML 125 MG IV (20:34)
[2024-12-27] MEDS: cefTRIAXone sodium 1 GM VIAL IVPUSH (20:34)
[2024-12-27] MEDS: 0.9 % Sodium Chloride 250 ML 999 ML IV (20:35)
[2024-12-27] MEDS: Albumin Human 25 % 100 ML 133.33 ML IV ×2 (21:53→22:11)
[2024-12-27] MEDS: Norepinephrine Bitartrate/D5W 8 MG/250 ML PLAST..BAG 8.51 MG IVCONT (22:01)
[2024-12-27 23:38] LABS: Venous Blood Gas Refer to POC result
[2024-12-27 23:39] LABS: VBG Base Excess 0.1 mmol/L; VBG HCO3 24 mmol/L (22-26); VBG pCO2 37 mmHg; VBG pH 7.41 (7.32-7.43); VBG pO2 43 mmHg
[2024-12-27] MEDS: Furosemide 40 MG/4 ML VIAL IVPUSH (23:39)
--- NOTE | 2024-12-27 23:52 | P.HPCC_ITS ---
History of Present Illness Date of Service: 12/27/24 Attending physician on admission: Matt Alonzo Chief Complaint: Acute hypoxic respiratory failure, acute early sepsis, acute CHF/COPD exac 89-year-old female with underlying history of COPD who is still a smoker, coronary disease post catheterization unknown details, atrial fibrillation on Eliquis, hypertension, CHF with ejection fraction of 40% and moderate to severe tricuspid regurgitation per echo in August of this year, GERD, arthritis, chronic kidney disease stage 3, COVID-19, restrictive lung disease, iron deficiency anemia. ?The patient had presented to the emergency room with complaints of bilateral lower extremity pain after falling at home around 130 in the morning.? The patient mentioned that she could not bear weight on her right leg, had other generalized weakness, felt somewhat short of breath and her heart going pretty fast every now and then.? She admits to having a cough without sputum production, no fever or chills.? She also admits having swelling of the legs which is worse than usual. ?Is unclear if she had head trauma, loss of consciousness but the patient is on blood thinners. She had a variety of x-rays including bilateral knees which showed no acute fractures and evidence of DJD. ?Chest x-ray showed cardiomegaly with pulmonary vascular congestion and pulmonary edema.? Small left pleural effusion. ?Head CT no acute intracranial findings with the exception of fluid on the right mastoid air cells and middle ear suggestive of auto mastoiditis.? However now clinical correlation is found as the patient does not have pain, edema or erythema around the mastoid area. ?Cervical spine CT shows no acute injury of the cervical spine. ED laboratories showed no white count, H and H of 10.4 and 37.8 respectively, platelets 223.? Normal electrolytes BUN 40 creatinine 1.39.? BNP 966, albumin 3.4, negative respiratory panel.? Urinalysis positive nitrates positive large leukocyte esterase and more than 50 white blood cells per high-power field.? 4+ bacteria. ?Given the concern for CHF the patient did not receive 30 mL/kilos of IV fluids, instead she got albumin, was treated with Rocephin and Zithromax.? It was identified that the patient did have pulmonary edema features but no Lasix was administered for she continued to be hypotensive therefore day called us for a clinical opinion via consult. Upon seeing her in the emergency room, she seemed to be in respiratory distress, tachycardic, hypotensive and diffusely edematous.? It was clear that the patient was not stable to go to the floor rather will admit her to the ICU, for hemodynamic stabilization, diuresis and treatment of her infection among other active issues. Review of Systems 2 Review of Systems: Yes Unobtainable due to mental status (illness [place]) [facility] Past Medical History Medical History Macular degeneration Overweight (BMI 25.0-29.9) COVID-19 vaccine administered History of COVID-19 Restrictive lung disease Edema Current smoker Iron deficiency anemia Tobacco abuse Carotid bruit Obesity (BMI 30-39.9) Depression Insomnia Allergic rhinitis Elevated TSH GERD without esophagitis Impaired fasting glucose Anemia Knee osteoarthritis Vitamin D deficiency Chronic kidney disease (CKD), stage III (moderate) Pure hypercholesterolemia Benign essential hypertension Coronary artery disease Family History Family History Father Medical history unknown Mother CVD (cardiovascular disease) Surgical History Surgical History Hx of total knee arthroplasty Hx of colonoscopy Hx of cardiac cath Hx of bilateral cataract extraction History of hysterectomy Social History Social History Household Members: Other Household Members Other:: Daughter and grandson Housing: Apartment Are you a primary hearing care practitioner to a significant other at home: No Do you presently have visiting nurse or other home services: Yes (elder care) Unable to assess alcohol history related to: Unknown Alcohol intake: never Comment: aware of trip hazard Patient Tobacco Use Status: Current everyday Tobacco user Tobacco use type: Cigarette Cigarette Packs Per Day: 1 Cigarettes Per Day: 20.0 Years Smoked: 70 Smoked in Last 30 Days: Yes e-Cigarette/Vaping Use: Never Used Second Hand Smoke Exposure: Yes Use of substances other than those prescribed or required for medical reasons: No Advance Directives: No Advance Directives Information Provided: Yes Do you have a plan to hurt others: No Plan Patient : No service: No Current occupational status: retired and disabled Cognitive needs: No (cane/walker) Hearing needs: No Vision needs: No Meds Allergies Allergy/AdvReac Type Severity Reaction Status Date / Time atorvastatin AdvReac Intermediate myalgias Verified 12/27/24 12:55 Active Medications: Current Medications Albuterol Sulfate (Albuterol Sulfate (0.083%) 2.5 Mg/3 Ml Vial.Neb) 2.5 mg INHALE Q3H PRN PRN Reason: Wheezing Albuterol/Ipratropium (Albuterol/Iprat 2.5/0.5mg 3 Ml Ampul.Neb) 3 ml INHALE Q6H TIARA Apixaban (Apixaban 2.5 Mg Tablet) 2.5 mg PO BID TIARA Ceftriaxone Sodium (Ceftriaxone Sodium 1 Gm Vial) 1 gm IVPUSH Q24H TIARA Furosemide (Furosemide 40 Mg/4 Ml Vial) 40 mg IVPUSH Q12H TIARA; Protocol Last Admin: 12/27/24 23:39 Dose: 40 mg Norepinephrine Bitartrate (Levophed) 8 mg in 250 mls @ 0 mls/hr IVCONT .Q0M [facility]; Protocol Last Admin: 12/27/24 22:01 Dose: 0.05 mcg/kg/min, 8.51 mls/hr Azithromycin 500 mg/ Sodium (Chloride) 250 mls @ 125 mls/hr IV Q24H TIARA Methylprednisolone Sodium Succinate (Methylprednisolone Sod Succ 40 Mg/Ml Vial) 40 mg IVPUSH Q8H TIARA Pantoprazole Sodium (Pantoprazole Sodium 40 Mg/10 Ml Vial) 40 mg IVPUSH DAILY@0630 [facility] Home Medications ?Medication ?Instructions ?Recorded ?Confirmed ?Last Taken ?Type brimonidine 0.2 % eye drops 1 drp ophthalmic (eye) TID macular 04/17/23 08/27/24 Unknown History degeneration omeprazole 20 mg capsule,delayed 20 mg PO DAILY@0630,1630 PRN 05/18/24 08/27/24 Unknown History release heartburns aspirin 81 mg capsule 81 mg PO DAILY 07/30/24 08/27/24 Unknown History fesoterodine 4 mg tablet,extended 4 mg PO DAILY PRN Overactive 08/27/24 08/27/24 Unknown History release 24 hr Bladder gabapentin 100 mg capsule 100 mg PO BID PRN Pain 08/27/24 08/27/24 Unknown History rosuvastatin 20 mg tablet 20 mg PO BEDTIME 08/27/24 08/27/24 Unknown History Physical Exam 2 Vital Signs: Vital Signs: Last Vital Signs Temp 96.8 F 12/27/24 22:49 Pulse 121 H 12/27/24 22:49 Resp 18 12/27/24 22:49 BP 117/58 L 12/27/24 23:39 Pulse Ox 93 12/27/24 22:49 O2 Del Method Nasal Cannula 12/27/24 22:49 O2 Flow Rate 2 12/27/24 22:49 Oxygen Flow Rate 2 12/27/24 12:53 BMI result Body Mass Index 33.3 Sepsis Exam done at 2129 General:? Alert oriented x2 no to time; mild to mid respiratory distress. ?Mild accessory muscle usage. There is audible expiratory wheezing.? Following all commands. Skin:? Bilateral lower extremity hyperpigmentation skin changes with thickening and erythema of the left lower extremity throughout the frontal and lateral tibia, not hot to touch.? This appears more related to stasis dermatitis and a does not appear to be infected. HEENT:? Head is normocephalic, atraumatic, pupils equal. Buccal mucosa is dry Neck is supple without lymphadenopathy. Cardiac:? Tachycardic 100 and 10 beats per minute.? S3 gallop best noted at the left lower sternal border.? No rubs, no murmurs. ?2+ JVD at 30 degree angle. Pulmonary: ?Diminished lung sounds bilaterally with expiratory wheezing bilaterally and throughout anteriorly and posteriorly.? Bilateral crackles throughout the lungs.? No rhonchi. Abdomen:? Protuberant, positive bowel sounds in all 4 quadrants.? Soft, nontender, no rebound or guarding.? Musculoskeletal:? Moving all 4 extremities upon request a major joints, there is no crepitus or tenderness.? The strength is 5/5 bilaterally and throughout all 4 extremities. ?There is 2+ pitting edema no calf tenderness , no leg asymmetry.? Gait not assessed at this point. Neurologic:? As above.? No focal deficits noted. Vascular:? 2+ pulses upper extremities bilaterally at the radial aspect.? Faint Doppler pulse on the left dorsal pedal is.? Unable to obtain Doppler pulses on the right dorsal pedal L or posterior tibial.? The plantar aspect of the great toe distal section is bluish in color but it does kiki.? It is not painful. Results Labs 12/28/24 04:12 12/28/24 04:12 Labs: Laboratory Results - last 24 hr 12/27/24 12/27/24 12/27/24 13:10 13:58 19:01 MCV 78.2 L MCH 22.2 L MCHC 28.4 L RDW 20.9 H Plt Count 243 MPV 10.0 Immature Gran % (Auto) 0.5 H Neut % (Auto) 80.3 H Lymph % (Auto) 11.2 L [place] % (Auto) 6.8 Eos % (Auto) 0.9 Baso % (Auto) 0.3 Lymph # (Auto) 1.2 [place] # (Auto) 0.7 Eos # (Auto) 0.1 Baso # (Auto) 0.0 Abs Immat Gran (auto) 0.05 H Absolute Neuts (auto) 8.7 H Absolute Nucleated RBC 0.020 H Nucleated RBC % (auto) 0.2 O2 Saturation 88.0 ABG pH at Pt Temp 7.34 L ABG pCO2 at Pt Temp 48 H ABG pO2 at Pt Temp 63 L ABG HCO3 26 ABG Base Excess (Actual) 0.0 VBG pH VBG pCO2 VBG pO2 VBG HCO3 VBG O2 Saturation VBG Base Excess Anion Gap 15 Estim Creat Clear Calc 31.6 Estimated GFR 37 POC Glucose Random Glucose 98 Lactic Acid Calcium 9.4 Total Bilirubin 0.6 AST 37 H ALT 7 Alkaline Phosphatase 83 Ammonia Total Creatine Kinase 38 B-Natriuretic Peptide 966 H Total Protein 6.8 Albumin 3.3 L Lipase 19 Urine Color Urine Appearance Urine pH Ur Specific [place] Urine Protein Urine Glucose (UA) Urine Ketones Urine Blood Urine Nitrite Ur Leukocyte Esterase Urine RBC Urine WBC Ur Squamous Epith Cells Urine Bacteria Hyaline Casts Influenza Type A (PCR) NEGATIVE Influenza Type B (PCR) NEGATIVE RSV RNA Qual (PCR) NEGATIVE SARS-CoV-2 RNA (RT-PCR) NEGATIVE 12/27/24 12/27/24 12/27/24 19:19 19:53 20:04 MCV 80.6 MCH 22.2 L MCHC 27.5 L RDW 20.7 H Plt Count 223 MPV 9.8 Immature Gran % (Auto) 0.4 Neut % (Auto) 72.2 Lymph % (Auto) 17.8 L [place] % (Auto) 7.3 Eos % (Auto) 1.9 Baso % (Auto) 0.4 Lymph # (Auto) 1.6 [place] # (Auto) 0.7 Eos # (Auto) 0.2 Baso # (Auto) 0.0 Abs Immat Gran (auto) 0.04 H Absolute Neuts (auto) 6.6 Absolute Nucleated RBC 0.000 Nucleated RBC % (auto) 0.0 O2 Saturation ABG pH at Pt Temp ABG pCO2 at Pt Temp ABG pO2 at Pt Temp ABG HCO3 ABG Base Excess (Actual) VBG pH VBG pCO2 VBG pO2 VBG HCO3 VBG O2 Saturation VBG Base Excess Anion Gap 14 Estim Creat Clear Calc 30.5 Estimated GFR 36 POC Glucose 106 Random Glucose 106 Lactic Acid Calcium 9.6 Total Bilirubin 0.6 AST 23 ALT 8 Alkaline Phosphatase 85 Ammonia 29 Total Creatine Kinase B-Natriuretic Peptide Total Protein 6.8 Albumin 3.4 L Lipase Urine Color Yellow Urine Appearance Cloudy Urine pH 5.5 Ur Specific [place] 1.020 Urine Protein >=1000 (4+) H Urine Glucose (UA) Negative Urine Ketones Trace Urine Blood Small (1+) H Urine Nitrite Positive H Ur Leukocyte Esterase Large (3+) H Urine RBC 3-5 H Urine WBC >50 H Ur Squamous Epith Cells 0-2 Urine Bacteria 4+ Hyaline Casts 3-5 Influenza Type A (PCR) Influenza Type B (PCR) RSV RNA Qual (PCR) SARS-CoV-2 RNA (RT-PCR) 12/27/24 12/27/24 20:05 23:35 MCV MCH MCHC RDW Plt Count MPV Immature Gran % (Auto) Neut % (Auto) Lymph % (Auto) [place] % (Auto) Eos % (Auto) Baso % (Auto) Lymph # (Auto) [place] # (Auto) Eos # (Auto) Baso # (Auto) Abs Immat Gran (auto) Absolute Neuts (auto) Absolute Nucleated RBC Nucleated RBC % (auto) O2 Saturation ABG pH at Pt Temp ABG pCO2 at Pt Temp ABG pO2 at Pt Temp ABG HCO3 ABG Base Excess (Actual) VBG pH 7.41 VBG pCO2 37 VBG pO2 43 VBG HCO3 24 VBG O2 Saturation 68.0 VBG Base Excess 0.1 Anion Gap Estim Creat Clear Calc Estimated GFR POC Glucose Random Glucose Lactic Acid 1.3 Calcium Total Bilirubin AST ALT Alkaline Phosphatase [place]ia Total Creatine Kinase B-Natriuretic Peptide Total Protein Albumin Lipase Urine Color Urine Appearance Urine pH Ur Specific [place] Urine Protein Urine Glucose (UA) Urine Ketones Urine Blood Urine Nitrite Ur Leukocyte Esterase Urine RBC Urine WBC Ur Squamous Epith Cells Urine Bacteria Hyaline Casts Influenza Type A (PCR) Influenza Type B (PCR) RSV RNA Qual (PCR) SARS-CoV-2 RNA (RT-PCR) Assessment and Plan (1) Acute hypoxemic respiratory failure: Status: Acute Plan ASSESSMENT : 1. Acute hypoxic respiratory failure 2. Acute early sepsis without shock due to UTI 3. Acute CHF exacerbation EF of 40% with moderate to severe tricuspid regurgitation, moderate pulmonary hypertension per echo in 08/28/2024 4. Acute COPD exacerbation 5. Urinary tract infection 6. Mild hypothermia 7. Anasarca 8. Atrial fibrillation with rapid ventricular response 9. Bluish coloration of the right great toe and lack of pulses rule out significant arterial disease and blue toe syndrome 10. Chronic kidney disease stage 3 r/o cardiorenal syndrome 11. Hypoalbuminemia 12. FULL CODE PLAN OF CARE: Admit to ICU, monitor vital signs I's and O's, oxygen supplementation.? Albumin replacement at 133 mL/hour, Levophed. Repeat labs and trop. ?Due to CHF the patient can not have 30 mL/kilos.? Start diuresis with Lasix 40 mg IV twice a day and consider drip depending on the effect. ?Start Solu-Medrol, DuoNebs and albuterol.? Continue Rocephin and Zithromax, Dee Dee Hugger. ?We will attempt rate control with digoxin 0.25 mg IV x1 if this does not work will start her on a Cardizem drip.? Avoid nephrotoxins.? I will order an arterial ultrasound of the right lower extremity and consult vascular services pending results in am. I dont think she has an acute ischemic limb at this time, she is on Eliquis so will continue. GI PROPHYLAXIS: protonix Iv DVT PROPHYLAXIS: resume Apixaban lasty dose this am Follow up sepsis exam done at 330 am on 12/28/2024 General:? Alert oriented x2 no to time; resolved respiratory distress. ?No accessory muscle usage. Skin:? no changes in R great toe coloration and other as above Cardiac:? Irreg Irreg 80 bpm, S3 at LLSB no rubs Pulmonary: ?Diminished lung sounds bilaterally with expiratory wheezing bilaterally and throughout anteriorly and posteriorly.? Bilateral crackles throughout the lungs.? No rhonchi. Musculoskeletal: ?here is 2+ pitting edema no calf tenderness , no leg asymmetry.? Gait not assessed at this point. Vascular:? 2+ pulses upper extremities bilaterally at the radial aspect.? Faint Doppler pulse on the left dorsal pedal is.? Unable to obtain Doppler pulses on the right dorsal pedal L or posterior tibial.? The plantar aspect of the great toe distal section is bluish in color but it does kiki.? It is not painful. Arterial US R L Ext IMPRESSION: 1. Multifocal moderate and severe stenoses with overall greatly diminished right lower extremity arterial circulation demonstrating monophasic waveforms and low peak systolic velocities throughout. Findings suggest inflow stenosis as well as in situ stenosis. 0650 overall the extremity appears to be slightly more bluish around the plantar aspect now extending into the 4th toe, the patient is also now symptomatic complaining of significant pain despite of small dose of opioids. Still no pulses via Doppler. Vascular consult with Dr. Marley was requested. Case discussed with him and will see the patient. Critical care time used for critical evaluation of this patient, diagnosis, treatment and coordination of care, review her records and documentation TOTAL CRITICAL CARE TIME? 120 MIN . discussion and coordination with consultants, completely separate from any procedures performed. Patient's care was discussed in detail with Dr. Alonzo who is aware of all the above as well as the plan of care for this patient.
[2024-12-27] MEDS: Digoxin 0.5 MG/2 ML AMPUL 0.25 MG IVPUSH (23:54)
[2024-12-27 23:55] LABS: Anion Gap 16 (12-20); Blood Urea Nitrogen 40 mg/dL (9-16); Calcium 8.8 mg/dL (8.4-10.2); Carbon Dioxide 19 mmol/L (22-29); Chloride 111 mmol/L (96-108); Creatinine Clr Calc Pharmacy 33.4; Estimated Glomerular Filt Rate 40; Glucose Random 117 mg/dL (60-115); Potassium 5.5 mmol/L (3.3-5.1); Sodium 140 mmol/L (135-145)
[2024-12-27 23:56] LABS: Troponin-I High Sensitivity 15.3 ng/L (<3.5-17.0)
[2024-12-28] VITALS (38 sets, daily range): BP systolic 115–151; BP diastolic 48–77; PULSE 80–134; RESP 15–25; TEMP 35.3–37.3; O2SAT 90–97; BMI 32.9
[2024-12-28] MEDS: Albuterol/Iprat 2.5/0.5MG 3 ML AMPUL.NEB INHALE ×5 (00:40→23:09)
[2024-12-28] MEDS: Albumin Human 25 % 100 ML 133.33 ML IV ×2 (01:16→02:25)
[2024-12-28] MEDS: Apixaban 2.5 MG TABLET PO ×3 (01:16→19:55)
[2024-12-28] MEDS: Digoxin 0.5 MG/2 ML AMPUL 0.25 MG IVPUSH (01:27)
[2024-12-28] MEDS: Furosemide 200 MG in 0.9 % Sodium Chloride 80 ML IVCONT (01:36)
[2024-12-28 04:17] LABS: VBG Base Excess -0.3 mmol/L; VBG HCO3 25 mmol/L (22-26); VBG pCO2 43 mmHg; VBG pH 7.36 (7.32-7.43); VBG pO2 42 mmHg
[2024-12-28 04:19] LABS: Basophils Absolute Auto 0.1 X10*3/uL (0.0-0.2); Basophils Percent Auto 0.4 % (0-2); Eosinophils Percent Auto 0.1 % (0-4); Hematocrit 35.2 % (37.0-47.0); Hemoglobin 9.6 g/dl (12.0-16.0); Imm Gran Abs Auto 0.05 X10*3/uL (0.00-0.03); Imm Gran Pct Auto 0.4 % (0.0-0.4); Lymphocytes Absolute Auto 0.4 X10*3/uL (1.2-4.9); Lymphocytes Percent Auto 3.1 % (20-40); MANUAL DIFF FLAG SCAN; Mean Corpuscular HGB Conc 27.3 g/dl (31.0-35.0); Mean Corpuscular Volume 80.7 fL (80.0-98.0); Mean Platelet Volume 10.3 fL (9.4-12.3); Monocytes Absolute Auto 0.2 X10*3/uL (0.1-1.2); Monocytes Percent Auto 1.1 % (2-11); Neutrophils Absolute Auto 13.3 x10*3/uL (2.0-8.3); Neutrophils Percent Auto 94.9 % (45-73); Platelet Count 229 X10*3/uL (160-400); Red Blood Count 4.36 X10*6/uL (4.20-5.50); Red Cell Distribution Width 20.6 % (11.0-16.0); SCAN SMEAR FLAG 1
[2024-12-28 04:38] LABS: Alanine Aminotransferase 6 U/L (0-31); Albumin Level 4.3 g/dL (3.5-5.0); Alkaline Phosphatase 73 U/L (39-117); Anion Gap 18 (12-20); Aspartate Amino Transferase 17 U/L (5-31); Bilirubin Total 0.8 mg/dL (0.0-1.0); Blood Urea Nitrogen 38 mg/dL (9-16); Calcium 9.4 mg/dL (8.4-10.2); Carbon Dioxide 22 mmol/L (22-29); Chloride 107 mmol/L (96-108); Creatinine Clr Calc Pharmacy 32.9; Estimated Glomerular Filt Rate 39; Glucose Random 123 mg/dL (60-115); Magnesium 2.2 mg/dL (1.6-2.6); Phosphorus 4.1 mg/dL (2.7-4.5); Potassium 4.6 mmol/L (3.3-5.1); Sodium 142 mmol/L (135-145); Total Protein 7.3 g/dL (6.5-8.0)
[2024-12-28 05:09] LABS: SLIDE REVIEW VERIFIED
[2024-12-28] MEDS: Morphine Sulfate 2 MG/ML CARTRIDGE IVPUSH (05:22)
[2024-12-28] MEDS: methylPREDNISolone Sod Succ 40 MG/ML VIAL IVPUSH (05:23)
[2024-12-28] MEDS: Pantoprazole Sodium 40 MG/10 ML VIAL IVPUSH (05:33)
[2024-12-28 06:39] LABS: Venous Blood Gas Refer to POC result
--- NOTE | 2024-12-28 07:04 | HE.ICUCC ---
Patient arrived from ED to ICU at approximately 2300. Upon initial assessment- pt drowsy but arousable to name, A&Ox4, vague/ forgetful, able to follow commands, SUN weakly. On 1L NC, SpO2 >90%, LS with wheezing throughout, pt complaining of mild SOB. Afib on tele, HR 110-120s. 0.25mg IVP Digoxin x2 given with good effect, HR improved to 80-90s. Levophed gtt infusing and titrated per OCT to maintain MAP >65. Rectal temp 96.8, PA aware, warm blankets applied to pt. Non-pitting edema to left forearm from infiltrated IV that was removed in ED- confirmed with ED RN that Levophed was not infusing via the infiltrated IV. Bilateral LE +4 edema. Extremities cold to the touch. Left pedal pulse confirmed via doppler. Unable to locate right pedal pulse or right posterior tibial pulse via doppler. Positive right femoral pulse via doppler. Right great toe is dusky purple but blanchable- area outlined with skin marker and SERENE Rey notified. STAT Arterial Duplex ordered. Fajardo catheter in place, draining cloudy yellow urine. Additional IV access obtained. Repeat labs obtained. 125mg IVP Solumedrol, 40mg IVP Lasix and x2 bags IV Albumin administered per OCT. Lasix gtt started per OCT with good effect. Approximately 0400- rectal temp 95.5, core rectal probe placed- PA notified, tesha hugger?applied to patient with good effect. Patient complaining of 10/10 throbbing foot pain, PA notified, 2mg IVP Morphine given with some effect. Repositioned in bed Q2H with pillows. Bed locked in lowest position, alarm on. Call esquivel within reach. See EMR/ Flowsheet for further details. Report given to oncuyen RN at 0700.
[2024-12-28] MEDS: 0.9 % Sodium Chloride Flush 3 ML SYRINGE IVFLUSH ×2 (08:05→15:30)
[2024-12-28] MEDS: fentaNYL citrate/PF 100 MCG/2 ML VIAL 50 MCG IVPUSH ×3 (08:30→22:38)
[2024-12-28] MEDS: Metoprolol Succinate ER 25 MG TAB.ER.24H PO (09:30)
[2024-12-28] MEDS: Clopidogrel Bisulfate 75 MG TABLET PO (10:41)
[2024-12-28] MEDS: Aspirin Enteric Coated 81 MG TABLET.DR PO (10:41)
--- NOTE | 2024-12-28 10:41 | P.PNCC_ITS ---
Subjective Subjective Date of Service: 12/28/24 Interval History: 89-year-old lady with underlying history of COPD, CAD, AFib on Eliquis, systolic heart failure, CKD 3 admitted on 12/27/2024 with bilateral lower extremity pain after mechanical fall on the morning of admission and development of respiratory distress. In ER patient also was noted to be hypotensive with positive UA and were response to initial colorectal resuscitation requiring initiation of pressor support and admission to intensive care unit. Overnight patient was noted to have right lower extremity with preserved arterial pulses. Right lower extremity ultrasound did not show acute arterial thrombus, vascular evaluation was requested. Critical Care Time (minutes): 60 Physical Exam 2 Vital Signs: Vital Signs: Last Vital Signs Temp 98.2 F 12/28/24 10:00 Pulse 121 H 12/28/24 10:00 Resp 20 12/28/24 10:00 BP 136/57 L 12/28/24 10:00 Pulse Ox 94 12/28/24 10:00 O2 Del Method Nasal Cannula 12/28/24 10:00 O2 Flow Rate 4 12/28/24 10:00 Oxygen Flow Rate 1 12/28/24 02:00 BMI result Body Mass Index 32.9 Const: General: no acute distress, alert and awake Eyes: Sclerae: sclerae normal EOM: EOMs intact bilaterally Neck: Neck: Yes no lymphadenopathy, Yes trachea midline and Yes supple Resp: Effort & Inspection: normal respiratory effort and no respiratory distress Auscultation: clear to auscultation bilaterally Cardio: Rate: regular rate Rhythm: regular rhythm Heart sounds: no gallops, no murmurs and no rubs GI: Palpation (GI): Soft to palpation and Other GI palpation findings present ( Nontender) Auscultation: normal bowel sounds Extrem: Other: Right lower extremity cold, but with preserved pulses Left upper extremity more swollen than right upper extremity, warm General: No clubbing Objective Data Labs 12/28/24 04:12 12/28/24 04:12 Labs: Laboratory Results - last 24 hr 12/27/24 12/27/24 12/27/24 13:10 13:58 19:01 WBC 10.8 RBC 4.36 Hgb 9.7 L Hct 34.1 L MCV 78.2 L MCH 22.2 L MCHC 28.4 L RDW 20.9 H Plt Count 243 MPV 10.0 Immature Gran % (Auto) 0.5 H Neut % (Auto) 80.3 H Lymph % (Auto) 11.2 L Warren % (Auto) 6.8 Eos % (Auto) 0.9 Baso % (Auto) 0.3 Lymph # (Auto) 1.2 Warren # (Auto) 0.7 Eos # (Auto) 0.1 Baso # (Auto) 0.0 Abs Immat Gran (auto) 0.05 H Absolute Neuts (auto) 8.7 H Absolute Nucleated RBC 0.020 H Nucleated RBC % (auto) 0.2 Smear Tech's Comments O2 Saturation 88.0 ABG pH at Pt Temp 7.34 L ABG pCO2 at Pt Temp 48 H ABG pO2 at Pt Temp 63 L ABG HCO3 26 ABG Base Excess (Actual) 0.0 VBG pH VBG pCO2 VBG pO2 VBG HCO3 VBG O2 Saturation VBG Base Excess Sodium 140 Potassium 5.2 H D Chloride 109 H Carbon Dioxide 21 L Anion Gap 15 BUN 41 H Creatinine 1.34 Estim Creat Clear Calc 31.6 Estimated GFR 37 POC Glucose Random Glucose 98 Lactic Acid Calcium 9.4 Phosphorus Magnesium Total Bilirubin 0.6 AST 37 H ALT 7 Alkaline Phosphatase 83 Ammonia Total Creatine Kinase 38 Troponin I High Sens 20.8 H D B-Natriuretic Peptide 966 H Total Protein 6.8 Albumin 3.3 L Lipase 19 Urine Color Urine Appearance Urine pH Ur Specific [place] Urine Protein Urine Glucose (UA) Urine Ketones Urine Blood Urine Nitrite Ur Leukocyte Esterase Urine RBC Urine WBC Ur Squamous Epith Cells Urine Bacteria Hyaline Casts Influenza Type A (PCR) NEGATIVE Influenza Type B (PCR) NEGATIVE RSV RNA Qual (PCR) NEGATIVE SARS-CoV-2 RNA (RT-PCR) NEGATIVE 12/27/24 12/27/24 12/27/24 19:19 19:53 20:04 WBC 9.2 RBC 4.69 Hgb 10.4 L Hct 37.8 MCV 80.6 MCH 22.2 L MCHC 27.5 L RDW 20.7 H Plt Count 223 MPV 9.8 Immature Gran % (Auto) 0.4 Neut % (Auto) 72.2 Lymph % (Auto) 17.8 L Warren % (Auto) 7.3 Eos % (Auto) 1.9 Baso % (Auto) 0.4 Lymph # (Auto) 1.6 Warren # (Auto) 0.7 Eos # (Auto) 0.2 Baso # (Auto) 0.0 Abs Immat Gran (auto) 0.04 H Absolute Neuts (auto) 6.6 Absolute Nucleated RBC 0.000 Nucleated RBC % (auto) 0.0 Smear Tech's Comments O2 Saturation ABG pH at Pt Temp ABG pCO2 at Pt Temp ABG pO2 at Pt Temp ABG HCO3 ABG Base Excess (Actual) VBG pH VBG pCO2 VBG pO2 VBG HCO3 VBG O2 Saturation VBG Base Excess Sodium 141 Potassium 4.9 Chloride 108 Carbon Dioxide 24 Anion Gap 14 BUN 40 H Creatinine 1.39 Estim Creat Clear Calc 30.5 Estimated GFR 36 POC Glucose 106 Random Glucose 106 Lactic Acid Calcium 9.6 Phosphorus Magnesium Total Bilirubin 0.6 AST 23 ALT 8 Alkaline Phosphatase 85 Ammonia 29 Total Creatine Kinase Troponin I High Sens 21.9 H B-Natriuretic Peptide Total Protein 6.8 Albumin 3.4 L Lipase Urine Color Yellow Urine Appearance Cloudy Urine pH 5.5 Ur Specific [place] 1.020 Urine Protein >=1000 (4+) H Urine Glucose (UA) Negative Urine Ketones Trace Urine Blood Small (1+) H Urine Nitrite Positive H Ur Leukocyte Esterase Large (3+) H Urine RBC 3-5 H Urine WBC >50 H Ur Squamous Epith Cells 0-2 Urine Bacteria 4+ Hyaline Casts 3-5 Influenza Type A (PCR) Influenza Type B (PCR) RSV RNA Qual (PCR) SARS-CoV-2 RNA (RT-PCR) 12/27/24 12/27/24 12/27/24 20:05 23:30 23:35 WBC RBC Hgb Hct MCV MCH MCHC RDW Plt Count MPV Immature Gran % (Auto) Neut % (Auto) Lymph % (Auto) Warren % (Auto) Eos % (Auto) Baso % (Auto) Lymph # (Auto) Warren # (Auto) Eos # (Auto) Baso # (Auto) Abs Immat Gran (auto) Absolute Neuts (auto) Absolute Nucleated RBC Nucleated RBC % (auto) Smear Tech's Comments O2 Saturation ABG pH at Pt Temp ABG pCO2 at Pt Temp ABG pO2 at Pt Temp ABG HCO3 ABG Base Excess (Actual) VBG pH 7.41 VBG pCO2 37 VBG pO2 43 VBG HCO3 24 VBG O2 Saturation 68.0 VBG Base Excess 0.1 Sodium 140 Potassium 5.5 H Chloride 111 H Carbon Dioxide 19 L Anion Gap 16 BUN 40 H Creatinine 1.27 Estim Creat Clear Calc 33.4 Estimated GFR 40 POC Glucose Random Glucose 117 H Lactic Acid 1.3 Calcium 8.8 D Phosphorus Magnesium Total Bilirubin AST ALT Alkaline Phosphatase Ammonia Total Creatine Kinase Troponin I High Sens 15.3 B-Natriuretic Peptide Total Protein Albumin Lipase Urine Color Urine Appearance Urine pH Ur Specific [place] Urine Protein Urine Glucose (UA) Urine Ketones Urine Blood Urine Nitrite Ur Leukocyte Esterase Urine RBC Urine WBC Ur Squamous Epith Cells Urine Bacteria Hyaline Casts Influenza Type A (PCR) Influenza Type B (PCR) RSV RNA Qual (PCR) SARS-CoV-2 RNA (RT-PCR) 12/28/24 04:12 WBC 14.0 H RBC 4.36 Hgb 9.6 L Hct 35.2 L MCV 80.7 MCH 22.0 L MCHC 27.3 L RDW 20.6 H Plt Count 229 MPV 10.3 Immature Gran % (Auto) 0.4 Neut % (Auto) 94.9 H Lymph % (Auto) 3.1 L Warren % (Auto) 1.1 L Eos % (Auto) 0.1 Baso % (Auto) 0.4 Lymph # (Auto) 0.4 L Warren # (Auto) 0.2 Eos # (Auto) 0.0 Baso # (Auto) 0.1 Abs Immat Gran (auto) 0.05 H Absolute Neuts (auto) 13.3 H Absolute Nucleated RBC 0.000 Nucleated RBC % (auto) 0.0 Smear Tech's Comments VERIFIED O2 Saturation ABG pH at Pt Temp ABG pCO2 at Pt Temp ABG pO2 at Pt Temp ABG HCO3 ABG Base Excess (Actual) VBG pH 7.36 VBG pCO2 43 VBG pO2 42 VBG HCO3 25 VBG O2 Saturation 63.0 VBG Base Excess -0.3 Sodium 142 Potassium 4.6 Chloride 107 Carbon Dioxide 22 Anion Gap 18 BUN 38 H Creatinine 1.28 Estim Creat Clear Calc 32.9 Estimated GFR 39 POC Glucose Random Glucose 123 H Lactic Acid Calcium 9.4 D Phosphorus 4.1 Magnesium 2.2 Total Bilirubin 0.8 AST 17 ALT 6 Alkaline Phosphatase 73 Ammonia Total Creatine Kinase Troponin I High Sens B-Natriuretic Peptide Total Protein 7.3 Albumin 4.3 Lipase Urine Color Urine Appearance Urine pH Ur Specific [place] Urine Protein Urine Glucose (UA) Urine Ketones Urine Blood Urine Nitrite Ur Leukocyte Esterase Urine RBC Urine WBC Ur Squamous Epith Cells Urine Bacteria Hyaline Casts Influenza Type A (PCR) Influenza Type B (PCR) RSV RNA Qual (PCR) SARS-CoV-2 RNA (RT-PCR) Microbiology Microbiology Results: Microbiology 12/27/24 20:04 Urine clean catch - Clean Catch Midstream Urine Culture - Preliminary Culture too young to evaluate. Progress Note: A&P Assessment and plan (1) Acute exacerbation of congestive heart failure: Status: Acute (2) Coronary artery disease: Status: Acute (3) Atrial fibrillation with RVR: Status: Acute (4) Acute UTI: Status: Acute Plan Assessment: 89-year-old lady admitted with dyspnea, hypoxia, and septic shock with likely source Plan: Neuro: No acute issues. Cardiac: Likely exacerbation of underlying chronic systolic congestive heart failure. Improving with diuresis. Underlying AFib on anticoagulation. Right lower extremity peripheral vascular disease, vascular surgery service care appreciated. Will start on aspirin/Plavix as per vascular surgery. Continue close monitoring. Left upper extremity venous Doppler with no evidence of thrombosis. Pulmonary: Acute hypoxic respiratory failure likely secondary to exacerbation of underlying systolic congestive heart failure, improving with diuresis. Continue to titrate off supplemental oxygen as tolerated. Renal: No acute issues. Endo: No acute issues. GI: No acute issues. ID: Septic shock with likely source, continue broad-spectrum antibiotics. Cultures are pending. Heme/Onc: No acute issues. Psych: No acute issues. Miscellaneous: No acute issues. Prophylaxis: Apixaban Diet: Regular Critical care time spent: 60 minutes Quality Stroke Does the patient have a stroke diagnosis?: No VTE Prior VTE?: No VTE Risk Level:: Medical - moderate - high VTE Device Contraindication: N/A - Device Ordered VTE Drug Contraindication: N/A - Med Ordered
--- NOTE | 2024-12-28 11:01 | PHA.MEDREC ---
Addendum entered by Kayla Orellana [facility] 12/28/24 11:40: Reviewed by [facility]. Addendum entered by Kayla Orellana [facility] 12/28/24 11:27: Srikanth (son) called to confirm medications on a list he has: Eliquis, aspirin, ferrous sulfate, fesoterodine, metoprolol, potassium, and tizanidine. Original Note: Pharmacy Consult ? Medication Reconciliation Pharmacy has completed the medication reconciliation. Spoke with patient but she was a poor historian and told us to call her daughters (Gianna,Reina) to confirm her medications. I spoke with Gianna and she was able to confirm the patients medications except for Potassium Chloride, Tizanidine and Gemtesa, which were all recently filled per claims. Gianna confirmed her mom is still taking Metoprolol 25mg tabs twice a day and stated that was being filled at [facility], after speaking with [facility] they have not filled that medication since 12/15 #15 for 7 days.
--- NOTE | 2024-12-28 12:53 | P.CONGS_ITS ---
History of Present Illness Consult details Consult date: 12/28/24 Reason for consult: other (Right lower extremity ischemia) Narrative: 89-year-old female who is still an active smoker with a history of COPD coronary artery disease AFib with was admitted yesterday for acute hypoxic respiratory failure. She presented to the emergency room with complaints of bilateral lower extremity pain as well. She could not bear weight on her right leg and had some weakness. She was subsequently admitted and worked up by the assistant program manager team. She was admitted for acute exacerbation of her congestive heart failure. In addition she was found to have a UTI. She is now for vascular evaluation of her lower extremities. Of note she did have noninvasive right lower extremity arterial and venous testing. Review of Systems 2 Review of Systems: Yes all other systems are reviewed and are negative Constitutional: Constitutional: Reports no additional constitutional complaints ENT: Reports Normal hearing present Cardiovascular: Cardiovascular: Denies chest pain, Denies chest pain at rest, Denies chest pain with activity and Denies pedal edema Respiratory: Respiratory: Denies cough Gastrointestinal: Gastrointestinal: Denies abdominal pain Musculoskeletal: Musculoskeletal: Denies abnormal gait, Denies muscle cramps and Denies radiating pain into limb Integumentary/Breasts: Skin/Breast: Denies skin ulcer and Denies wounds Neurologic: Reports Normal hearing present and Denies abnormal gait Psychiatric: Psychiatric: Reports no additional psychiatric complaints [facility] Past Medical History Medical History (Updated 12/28/24 @ 12:59 by Miko Marley MD) Macular degeneration Overweight (BMI 25.0-29.9) COVID-19 vaccine administered History of COVID-19 Restrictive lung disease Edema Current smoker Iron deficiency anemia Tobacco abuse Carotid bruit Obesity (BMI 30-39.9) Depression Insomnia Allergic rhinitis Elevated TSH GERD without esophagitis Impaired fasting glucose Anemia Knee osteoarthritis Vitamin D deficiency Chronic kidney disease (CKD), stage III (moderate) Pure hypercholesterolemia Benign essential hypertension Coronary artery disease Family History Family History Father Medical history unknown Mother CVD (cardiovascular disease) Surgical History Surgical History Hx of total knee arthroplasty Hx of colonoscopy Hx of cardiac cath Hx of bilateral cataract extraction History of hysterectomy Social History Social History Household Members: Other Household Members Other:: Daughter and grandson Housing: Apartment Are you a primary career counselor to a significant other at home: No Do you presently have visiting nurse or other home services: Yes (elder care) Unable to assess alcohol history related to: Unknown Alcohol intake: never Comment: aware of trip hazard Patient Tobacco Use Status: Current everyday Tobacco user Tobacco use type: Cigarette Cigarette Packs Per Day: 1 Cigarettes Per Day: 20.0 Years Smoked: 70 Smoked in Last 30 Days: Yes e-Cigarette/Vaping Use: Never Used Second Hand Smoke Exposure: Yes Use of substances other than those prescribed or required for medical reasons: No Currently Displaying Signs/Symptoms of Drug Intoxication Withdrawal: No Advance Directives: No Advance Directives Information Provided: Yes Do you have a plan to hurt others: No Plan Patient : No service: No Current occupational status: retired and disabled Cognitive needs: No (cane/walker) Hearing needs: No Vision needs: No Meds Allergies Allergy/AdvReac Type Severity Reaction Status Date / Time atorvastatin AdvReac Intermediate myalgias Verified 12/27/24 12:55 Active Medications: Current Medications Albuterol Sulfate (Albuterol Sulfate (0.083%) 2.5 Mg/3 Ml Vial.Neb) 2.5 mg INHALE Q3H PRN PRN Reason: Wheezing Albuterol/Ipratropium (Albuterol/Iprat 2.5/0.5mg 3 Ml Ampul.Neb) 3 ml INHALE Q6H [facility] Last Admin: 12/28/24 11:08 Dose: 3 ml Apixaban (Apixaban 2.5 Mg Tablet) 2.5 mg PO BID [facility] Last Admin: 12/28/24 09:30 Dose: 2.5 mg Aspirin (Aspirin Enteric Coated 81 Mg Tablet.Dr) 81 mg PO DAILY [facility] Last Admin: 12/28/24 10:41 Dose: 81 mg Ceftriaxone Sodium (Ceftriaxone Sodium 1 Gm Vial) 1 gm IVPUSH Q24H [facility] Clopidogrel Bisulfate (Clopidogrel Bisulfate 75 Mg Tablet) 75 mg PO DAILY [facility] Last Admin: 12/28/24 10:41 Dose: 75 mg Norepinephrine Bitartrate (Levophed) 8 mg in 250 mls @ 0 mls/hr IVCONT .Q0M [facility]; Protocol Last Titration: 12/28/24 04:09 Dose: 0 mcg/kg/min, 0 mls/hr Furosemide 200 mg/ Sodium (Chloride) 100 mls @ 2.5 mls/hr IVCONT .Q24H [facility] Last Admin: 12/28/24 01:36 Dose: 5 mg/hr, 2.5 mls/hr Metoprolol Succinate (Metoprolol Succinate Er 25 Mg Tab.Er.24h) 25 mg PO DAILY [facility]; Protocol Last Admin: 12/28/24 09:30 Dose: 25 mg Pantoprazole Sodium (Pantoprazole Sodium 40 Mg/10 Ml Vial) 40 mg IVPUSH DAILY@0630 [facility] Last Admin: 12/28/24 05:33 Dose: 40 mg Sodium Chloride (0.9 % Sodium Chloride Flush 3 Ml Syringe) 3 ml IVFLUSH QSHIFT [facility] Last Admin: 12/28/24 08:05 Dose: 3 ml Home Medications ?Medication ?Instructions ?Recorded ?Confirmed ?Last Taken ?Type brimonidine 0.2 % eye drops 1 drp ophthalmic (eye) TID macular 04/17/23 12/28/24 Unknown History degeneration omeprazole 20 mg capsule,delayed 20 mg PO DAILY@0630,1630 PRN 05/18/24 12/28/24 Unknown History release heartburns aspirin 81 mg capsule 81 mg PO DAILY 07/30/24 12/28/24 1 Day Ago History ~12/27/24 fesoterodine 4 mg tablet,extended 4 mg PO DAILY PRN Overactive 08/27/24 12/28/24 Unknown History release 24 hr Bladder gabapentin 100 mg capsule 100 mg PO BID PRN Pain 08/27/24 12/28/24 Unknown History rosuvastatin 20 mg tablet 20 mg PO BEDTIME 08/27/24 12/28/24 1 Day Ago History ~12/27/24 acetaminophen 650 mg 650 mg PO Q8H PRN Pain 12/28/24 12/28/24 Unknown History tablet,extended release Physical Exam 2 Vital Signs: Vital Signs: Last Vital Signs Temp 98.2 F 12/28/24 12:00 Pulse 120 H 12/28/24 12:00 Resp 16 12/28/24 12:00 BP 134/57 L 12/28/24 12:00 Pulse Ox 96 12/28/24 12:00 O2 Del Method Nasal Cannula 12/28/24 12:00 O2 Flow Rate 4 12/28/24 12:00 Oxygen Flow Rate 1 12/28/24 02:00 BMI result Body Mass Index 32.9 Const: General: cooperative, healthy appearing and comfortable O rientation/consciousness: oriented to person, oriented to place and oriented to time HEENT: Head: Yes normal to inspection Neck: Neck: Yes normal visual inspection Carotids: no bruits Chest: Chest palpation & inspection: normal inspection of the chest Resp: Effort & Inspection: normal respiratory effort and able to speak in complete sentences Auscultation: clear to auscultation bilaterally, no crackles, no rales, no rhonchi and no wheezes Cardio: Other: Right side palpable femoral pulse popliteal signal only. Had a difficult time appreciating dorsalis pedis and posterior tibial pulses. Rate: regular rate Rhythm: regular rhythm Heart sounds: S1 normal heart sound present and S2 normal heart sound present Bruits: no carotid bruits Peripheral pulses: Peripheral pulses 2+ throughout GI: Inspection: Yes normal to inspection Skin: Wounds: no wounds Hair: normal Neuro: General: oriented to person, oriented to place and oriented to time Cranial nerves: Yes CN's II-XII intact bilaterally and Yes Normal hearing present Cognition (Neuro): normal cognition Motor exam (neuro): 5/5 motor strength present throughout Extrem: Other: venous exam: +1 edema Motor was intact. Sensation was somewhat diminished on the right foot. General: No clubbing, No cyanosis and No edema Psych: Appearance: grossly normal Mental Status: mental status grossly normal Speech and movement: Normal speech and movement present Results Labs 12/28/24 04:12 12/28/24 04:12 Labs: Abnormal lab results 12/27/24 12/27/24 12/27/24 Range/Units 13:10 13:58 19:01 WBC (4.8-10.8) X10*3/uL Hgb 9.7 L (12.0-16.0) g/dl Hct 34.1 L (37.0-47.0) % MCV 78.2 L (80.0-98.0) fL MCH 22.2 L (27.0-33.0) pg MCHC 28.4 L (31.0-35.0) g/dl RDW 20.9 H (11.0-16.0) % Immature Gran % (Auto) 0.5 H (0.0-0.4) % Neut % (Auto) 80.3 H (45-73) % Lymph % (Auto) 11.2 L (20-40) % [place] % (Auto) (2-11) % Lymph # (Auto) (1.2-4.9) X10*3/uL Abs Immat Gran (auto) 0.05 H (0.00-0.03) X10*3/uL Absolute Neuts (auto) 8.7 H (2.0-8.3) x10*3/uL Absolute Nucleated RBC 0.020 H (0.0-0.012) X10*3/uL ABG pH at Pt Temp 7.34 L (7.35-7.45) ABG pCO2 at Pt Temp 48 H (32-45) mmHg ABG pO2 at Pt Temp 63 L (83-108) mmHg Potassium 5.2 H D (3.3-5.1) mmol/L Chloride 109 H (96-108) mmol/L Carbon Dioxide 21 L (22-29) mmol/L BUN 41 H (9-16) mg/dL Random Glucose (60-115) mg/dL AST 37 H (5-31) U/L Troponin I High Sens 20.8 H D (<3.5-17.0) ng/L B-Natriuretic Peptide 966 H (<100) pg/mL Albumin 3.3 L (3.5-5.0) g/dL Urine Protein (Neg-Trace) mg/dL Urine Blood (Negative) Urine Nitrite (Negative) Ur Leukocyte Esterase (Negative) Urine RBC (0-2) /HPF Urine WBC (0-5) /HPF 12/27/24 12/27/24 12/27/24 Range/Units 19:53 20:04 23:30 WBC (4.8-10.8) X10*3/uL Hgb 10.4 L (12.0-16.0) g/dl Hct (37.0-47.0) % MCV (80.0-98.0) fL MCH 22.2 L (27.0-33.0) pg MCHC 27.5 L (31.0-35.0) g/dl RDW 20.7 H (11.0-16.0) % Immature Gran % (Auto) (0.0-0.4) % Neut % (Auto) (45-73) % Lymph % (Auto) 17.8 L (20-40) % [place] % (Auto) (2-11) % Lymph # (Auto) (1.2-4.9) X10*3/uL Abs Immat Gran (auto) 0.04 H (0.00-0.03) X10*3/uL Absolute Neuts (auto) (2.0-8.3) x10*3/uL Absolute Nucleated RBC (0.0-0.012) X10*3/uL ABG pH at Pt Temp (7.35-7.45) ABG pCO2 at Pt Temp (32-45) mmHg ABG pO2 at Pt Temp (83-108) mmHg Potassium 5.5 H (3.3-5.1) mmol/L Chloride 111 H (96-108) mmol/L Carbon Dioxide 19 L (22-29) mmol/L BUN 40 H 40 H (9-16) mg/dL Random Glucose 117 H (60-115) mg/dL AST (5-31) U/L Troponin I High Sens 21.9 H (<3.5-17.0) ng/L B-Natriuretic Peptide (<100) pg/mL Albumin 3.4 L (3.5-5.0) g/dL Urine Protein >=1000 (4+) H (Neg-Trace) mg/dL Urine Blood Small (1+) H (Negative) Urine Nitrite Positive H (Negative) Ur Leukocyte Esterase Large (3+) H (Negative) Urine RBC 3-5 H (0-2) /HPF Urine WBC >50 H (0-5) /HPF 12/28/24 Range/Units 04:12 WBC 14.0 H (4.8-10.8) X10*3/uL Hgb 9.6 L (12.0-16.0) g/dl Hct 35.2 L (37.0-47.0) % MCV (80.0-98.0) fL MCH 22.0 L (27.0-33.0) pg MCHC 27.3 L (31.0-35.0) g/dl RDW 20.6 H (11.0-16.0) % Immature Gran % (Auto) (0.0-0.4) % Neut % (Auto) 94.9 H (45-73) % Lymph % (Auto) 3.1 L (20-40) % [place] % (Auto) 1.1 L (2-11) % Lymph # (Auto) 0.4 L (1.2-4.9) X10*3/uL Abs Immat Gran (auto) 0.05 H (0.00-0.03) X10*3/uL Absolute Neuts (auto) 13.3 H (2.0-8.3) x10*3/uL Absolute Nucleated RBC (0.0-0.012) X10*3/uL ABG pH at Pt Temp (7.35-7.45) ABG pCO2 at Pt Temp (32-45) mmHg ABG pO2 at Pt Temp (83-108) mmHg Potassium (3.3-5.1) mmol/L Chloride (96-108) mmol/L Carbon Dioxide (22-29) mmol/L BUN 38 H (9-16) mg/dL Random Glucose 123 H (60-115) mg/dL AST (5-31) U/L Troponin I High Sens (<3.5-17.0) ng/L B-Natriuretic Peptide (<100) pg/mL Albumin (3.5-5.0) g/dL Urine Protein (Neg-Trace) mg/dL Urine Blood (Negative) Urine Nitrite (Negative) Ur Leukocyte Esterase (Negative) Urine RBC (0-2) /HPF Urine WBC (0-5) /HPF Short CBC 12/27/24 12/27/24 12/28/24 Range/Units 13:10 19:53 04:12 WBC 10.8 9.2 14.0 H (4.8-10.8) X10*3/uL Hgb 9.7 L 10.4 L 9.6 L (12.0-16.0) g/dl Hct 34.1 L 37.8 35.2 L (37.0-47.0) % Plt Count 243 223 229 (160-400) X10*3/uL BMP 12/27/24 12/27/24 12/27/24 13:10 19:53 23:30 Sodium 140 141 140 Potassium 5.2 H D 4.9 5.5 H Chloride 109 H 108 111 H Carbon Dioxide 21 L 24 19 L BUN 41 H 40 H 40 H Creatinine 1.34 1.39 1.27 Calcium 9.4 9.6 8.8 D 12/28/24 04:12 Sodium 142 Potassium 4.6 Chloride 107 Carbon Dioxide 22 BUN 38 H Creatinine 1.28 Calcium 9.4 D Cardiac Enzymes 12/27/24 Range/Units 13:10 Total Creatine Kinase 38 (26-140) U/L Liver Function 12/27/24 12/27/24 12/28/24 Range/Units 13:10 19:53 04:12 Total Bilirubin 0.6 0.6 0.8 (0.0-1.0) mg/dL AST 37 H 23 17 (5-31) U/L ALT 7 8 6 (0-31) U/L Alkaline Phosphatase 83 85 73 (39-117) U/L Albumin 3.3 L 3.4 L 4.3 (3.5-5.0) g/dL Urine 12/27/24 Range/Units 20:04 Urine Color Yellow Urine Appearance Cloudy Urine pH 5.5 (5.0-9.0) Ur Specific [place] 1.020 (1.005-1.025) Urine Protein >=1000 (4+) H (Neg-Trace) mg/dL Urine Glucose (UA) Negative (Negative) mg/dL All other labs normal. Imaging Additional studies: Noninvasive arterial testing from 12/27/2024 demonstrates multifocal arterial disease. Concern of severe inflow disease. DVT study was negative Assessment and Plan (1) PAD (peripheral artery disease): Status: Acute Plan In short patient has severe peripheral vascular disease. I do believe she has inflow and outflow disease. She does have a longstanding history of smoking. The foot is viable she does have motor sensation is diminished. We will start her on aspirin and Plavix. The concern here is her overall age and multiple comorbidities. I would like her respiratory status and UTI to improve prior to any intervention. We will have to have a wellington discussion with the family about overall expectations when she stabilizes. Thank you for allowing us to assist in her care. If there are any questions or concerns please do not hesitate to contact us. Procedures Date of Service Date of Service: 12/28/24
--- NOTE | 2024-12-28 13:58 | MHC.CM.PN ---
Met with pt to review d/c planning needs: pt hard of hearing: call placed to pt's dtr Gianna who states pt resides alone and has [facility] and [employer]. Her CM is Lorene Joya. Pt uses a rollator and has begun to sleep in a recliner downstairs as she cannot get up and down the stairs to the 2nd floor bedroom per Gianna. Pt had been to [facility] in the past and would not want to return. She also is apprehensive about services in the home. Gianna states pt is a life long smoker and would be hesitant to quit. Pt would benefit from a PT and Respiratory eval once medically stable to better access her abilities. Gianna requests no STR referrals be made at this time but is receptive to [facility]. Referral made. PCP Dr. Gideon CARRANZA in chart, HCP copy requested: CM to follow.
[2024-12-28] MEDS: cefTRIAXone sodium 1 GM VIAL IVPUSH (19:40)
[2024-12-29] VITALS (18 sets, daily range): BP systolic 97–156; BP diastolic 40–73; PULSE 70–108; RESP 14–20; TEMP 36.6–37.3; O2SAT 91–96; BMI 30.4; BMI 32.7
[2024-12-29] MEDS: fentaNYL citrate/PF 100 MCG/2 ML VIAL 25 MCG IVPUSH (00:12)
[2024-12-29] MEDS: 0.9 % Sodium Chloride Flush 3 ML SYRINGE IVFLUSH ×3 (00:12→16:52)
[2024-12-29 00:41] LABS: Anion Gap 17 (12-20); Blood Urea Nitrogen 43 mg/dL (9-16); Calcium 9.3 mg/dL (8.4-10.2); Carbon Dioxide 25 mmol/L (22-29); Chloride 105 mmol/L (96-108); Creatinine Clr Calc Pharmacy 29.7; Estimated Glomerular Filt Rate 35; Glucose Random 139 mg/dL (60-115); Magnesium 2.1 mg/dL (1.6-2.6); Phosphorus 4.4 mg/dL (2.7-4.5); Potassium 4.4 mmol/L (3.3-5.1); Sodium 143 mmol/L (135-145)
[2024-12-29] MEDS: Furosemide 200 MG in 0.9 % Sodium Chloride 80 ML IVCONT (01:45)
--- NOTE | 2024-12-29 04:21 | HE.NUR.EV ---
Status Change: Approximately 2350 patient had 12 beats of VTach. BP stable, SBP 110-120s. Patient alert, denies any dizziness, SOB or chest pain. However patient is complaining of 10/10 right foot pain. HAIRSPRING ADJUSTER notified- repeat labs and one time dose of 0.25mcg IVP Fentanyl ordered and administered with good effect.
[2024-12-29] MEDS: Albuterol/Iprat 2.5/0.5MG 3 ML AMPUL.NEB INHALE ×3 (05:09→19:41)
[2024-12-29 05:29] LABS: MANUAL DIFF FLAG NO
[2024-12-29 05:30] LABS: Basophils Percent Auto 0.4 % (0-2); Hemoglobin 8.7 g/dl (12.0-16.0); Imm Gran Abs Auto 0.04 X10*3/uL (0.00-0.03); Imm Gran Pct Auto 0.4 % (0.0-0.4); Lymphocytes Absolute Auto 0.7 X10*3/uL (1.2-4.9); Lymphocytes Percent Auto 6.5 % (20-40); Mean Corpuscular HGB Conc 28.1 g/dl (31.0-35.0); Mean Corpuscular Hemoglobin 22.1 pg (27.0-33.0); Mean Corpuscular Volume 78.9 fL (80.0-98.0); Mean Platelet Volume 9.9 fL (9.4-12.3); Monocytes Absolute Auto 0.7 X10*3/uL (0.1-1.2); Monocytes Percent Auto 6.1 % (2-11); NRBC Pct Auto 0.3 /100WBC (0.0-0.2); Neutrophils Absolute Auto 9.3 x10*3/uL (2.0-8.3); Neutrophils Percent Auto 86.6 % (45-73); Platelet Count 214 X10*3/uL (160-400); Red Blood Count 3.93 X10*6/uL (4.20-5.50); Red Cell Distribution Width 20.6 % (11.0-16.0); White Blood Count 10.7 X10*3/uL (4.8-10.8)
[2024-12-29 05:45] LABS: Albumin Level 3.6 g/dL (3.5-5.0); Anion Gap 16 (12-20); Blood Urea Nitrogen 43 mg/dL (9-16); Calcium 9.5 mg/dL (8.4-10.2); Carbon Dioxide 26 mmol/L (22-29); Chloride 105 mmol/L (96-108); Creatinine Clr Calc Pharmacy 31.2; Estimated Glomerular Filt Rate 37; Glucose Random 110 mg/dL (60-115); Magnesium 2.1 mg/dL (1.6-2.6); Phosphorus 4.4 mg/dL (2.7-4.5); Potassium 4.2 mmol/L (3.3-5.1); Sodium 143 mmol/L (135-145)
[2024-12-29] MEDS: Pantoprazole Sodium 40 MG/10 ML VIAL IVPUSH (05:49)
[2024-12-29] MEDS: fentaNYL citrate/PF 100 MCG/2 ML VIAL 50 MCG IVPUSH (07:47)
[2024-12-29] MEDS: Aspirin Enteric Coated 81 MG TABLET.DR PO (07:48)
[2024-12-29] MEDS: Metoprolol Succinate ER 25 MG TAB.ER.24H PO (07:48)
[2024-12-29] MEDS: Clopidogrel Bisulfate 75 MG TABLET PO (07:48)
[2024-12-29] MEDS: Apixaban 2.5 MG TABLET PO ×2 (07:49→22:00)
--- NOTE | 2024-12-29 09:25 | HO.VASCPN ---
Subjective Subjective Date of Service: 12/29/24 Interval history: Jaki is doing ok this morning. She is eating and drinking well. She will be getting moved upstairs later today. She states she continues to have intermittent pain in her legs; she states they are not currently in pain. She has been sleeping well. She denies any shortness of breath, diff breathing, or CP. She has no new concerns this morning. Physical Exam Vital Signs: Vital Signs: Last Vital Signs Temp 98.8 F 12/29/24 08:00 Pulse 108 H 12/29/24 08:00 Resp 18 12/29/24 08:00 BP 131/51 L 12/29/24 08:00 Pulse Ox 93 12/29/24 08:00 O2 Del Method Nasal Cannula 12/29/24 08:00 O2 Flow Rate 3 12/29/24 08:00 Oxygen Flow Rate 1 12/28/24 02:00 BMI result Body Mass Index 30.4 Const: General: comfortable and no acute distress Orientation/consciousness: patient oriented x3 HEENT: Ears: hearing grossly normal bilaterally Resp: Effort & Inspection: normal respiratory effort and able to speak in complete sentences Auscultation: clear to auscultation bilaterally Cardio: Rate: regular rate Rhythm: regular rhythm Heart sounds: S1 normal heart sound present and S2 normal heart sound present Bruits: no abdominal aortic bruits, no carotid bruits, no femoral bruits and no renal bruits GI: Palpation (GI): No Abdominal aortic bruit present Neuro: General: patient oriented x3 Cranial nerves: Yes CN's II-XII intact bilaterally Extrem: Other: Right lower extremity: doppler PT pulse only. +1 peripheral edema noted. Sensation slightly decreased. Motor intact. Progress Note: A&P Assessment and plan (1) PAD (peripheral artery disease): Status: Acute Assessment and Plan: Jaki remains stable from a vascular standpoint. She was found to have inflow and outflow disease. We recommend continuing on ASA and Plavix. We recommend her stabilizing her respiratory status and recovering from the UTI prior to discussing any vascular interventions. There are concerns also due to her age and multiple comorbidities. We will have to have a wellington discussion with the family about overall expectations when she stabilizes. We will continue to monitor. If there are any questions or concerns, please do not hesitate to reach out to us. Time Spent With Patient Time: Total time managing care of this patient today ____ minutes. Procedures Date of Service Date of Service: 12/29/24 Quality Stroke Does the patient have a stroke diagnosis?: No VTE Prior VTE?: No VTE Risk Level:: Medical - moderate - high VTE Device Contraindication: N/A - Device Ordered VTE Drug Contraindication: N/A - Med Ordered
--- NOTE | 2024-12-29 09:34 | P.CDIM_ITS ---
PROVIDER RESPONSE TEXT: To clarify, the appropriate diagnosis supported by the clinical indicators: Paroxysmal atrial fibrillation QUERY TEXT: PHYSICIAN'S DOCUMENTATION REQUEST Date of Query: 12/29/2024 08:18 AM EDT Patient Name: Jaki Kulkarni Admit Date: 12/28/2024 Dear Mario Moreno MD, A review of the medical record indicates additional documentation may be needed. Please review below and update the documentation accordingly. Clinical Indicators: ICU progress note 12/28/24: Afib on Eliquis Cardiac: Likely exacerbation of underlying chronic systolic congestive heart failure. Improving with diuresis. Underlying Afib on anticoagulation. If possible, please provide further specificity regarding atrial fibrillation, such as: Paroxysmal atrial fibrillation Persistent atrial fibrillation Long lasting persistent atrial fibrillation Permanent atrial fibrillation Other (explain) Clinically unable to determine (explain) Thank you, Lana Kimbrough, CCS, CDIS Use of terms such as suspected, likely, concern for, or probable (associated with a specific diagnosi s that is being evaluated, monitored, or treated as if it exists) are acceptable and can be coded in the inpatient se tting, when documented at the time of discharge. Please use your independent medical judgment in providing your response. THIS QUERY IS PART OF THE PERMANENT MEDICAL RECORD
--- NOTE | 2024-12-29 11:07 | P.PNCC_ITS ---
Subjective Subjective Date of Service: 12/29/24 Interval History: 89-year-old lady with underlying history of COPD, CAD, AFib on Eliquis, systolic heart failure, CKD 3 admitted on 12/27/2024 with bilateral lower extremity pain after mechanical fall on the morning of admission and development of respiratory distress. In ER patient also was noted to be hypotensive with positive UA and were response to initial colloidal resuscitation requiring initiation of pressor support and admission to intensive care unit. Course also significant for chronic right lower extremity peripheral vascular disease with significant stenosis, but no arterial thrombosis noted on Doppler ultrasound, no followed by vascular surgery with possible later intervention. No events overnight. Titrated off pressor support. Critical Care Time (minutes): 0 Physical Exam 2 Vital Signs: Vital Signs: Last Vital Signs Temp 98.8 F 12/29/24 10:24 Pulse 85 12/29/24 10:24 Resp 20 12/29/24 10:24 BP 119/62 12/29/24 10:24 Pulse Ox 95 12/29/24 10:24 O2 Del Method Nasal Cannula 12/29/24 10:24 O2 Flow Rate 3 12/29/24 10:24 Oxygen Flow Rate 1 12/28/24 02:00 BMI result Body Mass Index 32.7 Const: General: no acute distress, alert and awake Eyes: Sclerae: sclerae normal EOM: EOMs intact bilaterally Neck: Neck: Yes no lymphadenopathy, Yes trachea midline and Yes supple Resp: Effort & Inspection: normal respiratory effort and no respiratory distress Auscultation: clear to auscultation bilaterally Cardio: Rate: regular rate Rhythm: regular rhythm Heart sounds: no gallops, no murmurs and no rubs GI: Palpation (GI): Soft to palpation and Other GI palpation findings present ( Nontender) Auscultation: normal bowel sounds Extrem: Other: Right lower extremity cold, with preserved distal pulses, painful General: Yes no pedal edema, No clubbing and No cyanosis Objective Data Labs 12/29/24 05:15 12/29/24 05:15 Labs: Laboratory Results - last 24 hr 12/29/24 12/29/24 00:21 05:15 WBC 10.7 RBC 3.93 L Hgb 8.7 L Hct 31.0 L MCV 78.9 L MCH 22.1 L MCHC 28.1 L RDW 20.6 H Plt Count 214 MPV 9.9 Immature Gran % (Auto) 0.4 Neut % (Auto) 86.6 H Lymph % (Auto) 6.5 L [place] % (Auto) 6.1 Eos % (Auto) 0.0 Baso % (Auto) 0.4 Lymph # (Auto) 0.7 L [place] # (Auto) 0.7 Eos # (Auto) 0.0 Baso # (Auto) 0.0 Abs Immat Gran (auto) 0.04 H Absolute Neuts (auto) 9.3 H Absolute Nucleated RBC 0.030 H Nucleated RBC % (auto) 0.3 H Sodium 143 143 Potassium 4.4 4.2 Chloride 105 105 Carbon Dioxide 25 26 Anion Gap 17 16 BUN 43 H 43 H Creatinine 1.42 H 1.35 Estim Creat Clear Calc 29.7 31.2 Estimated GFR 35 37 Random Glucose 139 H 110 Calcium 9.3 9.5 Phosphorus 4.4 4.4 Magnesium 2.1 2.1 Albumin 3.6 Microbiology Microbiology Results: Microbiology 12/27/24 20:04 Urine clean catch - Clean Catch Midstream Urine Culture - Preliminary Culture in progress. 12/27/24 20:29 Blood - Venous Blood Culture - Preliminary No growth after 24 hours. 12/27/24 20:05 Blood - Venous Blood Culture - Preliminary No growth after 24 hours. Progress Note: A&P Assessment and plan (1) Congestive heart failure: Status: Acute (2) Afib: Status: Acute (3) PAD (peripheral artery disease): Status: Acute (4) Acute UTI: Status: Acute Plan Assessment: 89-year-old lady admitted with dyspnea, hypoxia, and septic shock with likely source Plan: Neuro: No acute issues. Cardiac: Likely exacerbation of underlying chronic systolic congestive heart failure. Improving with diuresis. Underlying AFib on anticoagulation. Right lower extremity peripheral vascular disease, vascular surgery service care appreciated. Continue on aspirin/Plavix as per vascular surgery. Continue close monitoring. Left upper extremity venous Doppler with no evidence of thrombosis. Pulmonary: Acute hypoxic respiratory failure likely secondary to exacerbation of underlying systolic congestive heart failure, improving with diuresis. Continue to titrate off supplemental oxygen as tolerated. Renal: No acute issues. Endo: No acute issues. GI: No acute issues. ID: Septic shock with likely source, continue broad-spectrum antibiotics. Cultures are pending. Heme/Onc: No acute issues. Psych: No acute issues. Miscellaneous: No acute issues. Prophylaxis: Apixaban Diet: Regular Quality Stroke Does the patient have a stroke diagnosis?: No VTE Prior VTE?: No VTE Risk Level:: Medical - moderate - high VTE Device Contraindication: N/A - Device Ordered VTE Drug Contraindication: N/A - Med Ordered
[2024-12-29] MEDS: HYDROmorphone HCl 0.5 MG/0.5 ML SYRINGE 0.25 MG IVPUSH ×3 (13:30→21:51)
--- NOTE | 2024-12-29 15:38 | PM.EVENT ---
Event Note Date of Service: 12/29/24 Event Note: 89F admitted to icu for septic shock from uti, no organism identifired, copmlicated by chf, and pvd RLE continue rocpehin iv lasix - ?change to po in am follow up vascular - ?timing of angiogram Time Spent With Patient Time: Total time managing care of this patient today ____ minutes.
[2024-12-29] MEDS: cefTRIAXone sodium 1 GM VIAL IVPUSH (22:00)
[2024-12-30] VITALS (13 sets, daily range): BP systolic 109–149; BP diastolic 44–71; PULSE 77–100; RESP 16–20; TEMP 36.4–37.3; O2SAT 89–99; BMI 32.6
[2024-12-30] MEDS: Albuterol/Iprat 2.5/0.5MG 3 ML AMPUL.NEB INHALE ×4 (00:23→18:33)
[2024-12-30] MEDS: HYDROmorphone HCl 0.5 MG/0.5 ML SYRINGE 0.25 MG IVPUSH ×3 (03:41→19:46)
[2024-12-30] MEDS: 0.9 % Sodium Chloride Flush 3 ML SYRINGE IVFLUSH ×4 (03:42→19:43)
[2024-12-30] MEDS: Pantoprazole Sodium 40 MG/10 ML VIAL IVPUSH (06:04)
[2024-12-30 06:55] LABS: MANUAL DIFF FLAG NO
[2024-12-30 07:13] LABS: Basophils Absolute Auto 0.1 X10*3/uL (0.0-0.2); Basophils Percent Auto 0.4 % (0-2); Eosinophils Absolute Auto 0.2 X10*3/uL (0.0-0.4); Eosinophils Percent Auto 1.2 % (0-4); Hematocrit 33.5 % (37.0-47.0); Hemoglobin 9.2 g/dl (12.0-16.0); Imm Gran Abs Auto 0.12 X10*3/uL (0.00-0.03); Imm Gran Pct Auto 0.7 % (0.0-0.4); Mean Corpuscular HGB Conc 27.5 g/dl (31.0-35.0); Mean Corpuscular Volume 80.1 fL (80.0-98.0); Mean Platelet Volume 10.3 fL (9.4-12.3); Monocytes Absolute Auto 1.2 X10*3/uL (0.1-1.2); Monocytes Percent Auto 7.4 % (2-11); Neutrophils Absolute Auto 13.8 x10*3/uL (2.0-8.3); Neutrophils Percent Auto 84.3 % (45-73); Platelet Count 242 X10*3/uL (160-400); Red Blood Count 4.18 X10*6/uL (4.20-5.50); Red Cell Distribution Width 20.8 % (11.0-16.0); White Blood Count 16.4 X10*3/uL (4.8-10.8)
[2024-12-30 07:15] LABS: Albumin Level 3.7 g/dL (3.5-5.0); Anion Gap 16 (12-20); Blood Urea Nitrogen 43 mg/dL (9-16); Calcium 9.4 mg/dL (8.4-10.2); Carbon Dioxide 31 mmol/L (22-29); Chloride 100 mmol/L (96-108); Creatinine Clr Calc Pharmacy 30.6; Estimated Glomerular Filt Rate 36; Glucose Random 114 mg/dL (60-115); Magnesium 1.8 mg/dL (1.6-2.6); Phosphorus 3.2 mg/dL (2.7-4.5); Potassium 3.4 mmol/L (3.3-5.1); Sodium 144 mmol/L (135-145)
[2024-12-30] MEDS: Apixaban 2.5 MG TABLET PO ×2 (08:10→19:45)
[2024-12-30] MEDS: Metoprolol Succinate ER 25 MG TAB.ER.24H PO (08:10)
[2024-12-30] MEDS: Clopidogrel Bisulfate 75 MG TABLET PO (08:10)
[2024-12-30] MEDS: Furosemide 200 MG in 0.9 % Sodium Chloride 80 ML IVCONT (08:10)
[2024-12-30] MEDS: Aspirin Enteric Coated 81 MG TABLET.DR PO (08:10)
--- NOTE | 2024-12-30 10:31 | P.PNIM_ITS ---
Subjective Subjective Date of Service: 12/30/24 Interval History: transfer out out of [facility] 12/29 s/p vasopressor for shock d/t gram negative daniel uti, heart failure on iv lasix drip Physical Exam 2 Vital Signs: Vital Signs: Last Vital Signs Temp 98.8 F 12/30/24 07:09 Pulse 95 12/30/24 07:09 Resp 20 12/30/24 07:09 BP 149/55 H 12/30/24 07:09 Pulse Ox 95 12/30/24 07:09 O2 Del Method Nasal Cannula 12/30/24 07:09 O2 Flow Rate 2 12/30/24 07:09 Oxygen Flow Rate 1 12/28/24 02:00 BMI result Body Mass Index 32.6 Const: Other: General: AO X 3, no acute distress Resp: CTA bilateral CVS: S1,S2, iregular GI: +BS, NT, no distention Skin: No rash ext: cool extremities Neuro: motor grossly intact Psych: appropriate affect Objective Data Active Medications Albuterol Sulfate (Albuterol Sulfate (0.083%) 2.5 Mg/3 Ml Vial.Neb) 2.5 mg INHALE Q3H PRN PRN Reason: Wheezing Albuterol/Ipratropium (Albuterol/Iprat 2.5/0.5mg 3 Ml Ampul.Neb) 3 ml INHALE Q6H [facility] Last Admin: 12/30/24 06:20 Dose: 3 ml Documented By: GABE Apixaban (Apixaban 2.5 Mg Tablet) 2.5 mg PO BID [facility] Last Admin: 12/30/24 08:10 Dose: 2.5 mg Documented By: JONAS Aspirin (Aspirin Enteric Coated 81 Mg Tablet.Dr) 81 mg PO DAILY [facility] Last Admin: 12/30/24 08:10 Dose: 81 mg Documented By: JONAS Ceftriaxone Sodium (Ceftriaxone Sodium 1 Gm Vial) 1 gm IVPUSH Q24H [facility] Last Admin: 12/29/24 22:00 Dose: 1 gm Documented By: ARIANNA Clopidogrel Bisulfate (Clopidogrel Bisulfate 75 Mg Tablet) 75 mg PO DAILY [facility] Last Admin: 12/30/24 08:10 Dose: 75 mg Documented By: JONAS Hydromorphone HCl (Hydromorphone Hcl 0.5 Mg/0.5 Ml Syringe) 0.25 mg IVPUSH Q3H PRN; Protocol PRN Reason: Pain, Severe (Pain Scale 7-10) Last Admin: 12/30/24 08:24 Dose: 0.25 mg Documented By: JONAS Furosemide 200 mg/ Sodium (Chloride) 100 mls @ 2.5 mls/hr IVCONT .Q24H [facility] Last Admin: 12/30/24 08:10 Dose: 5 mg/hr, 2.5 mls/hr Documented By: JONAS Metoprolol Succinate (Metoprolol Succinate Er 25 Mg Tab.Er.24h) 25 mg PO DAILY [facility]; Protocol Last Admin: 12/30/24 08:10 Dose: 25 mg Documented By: JONAS Pantoprazole Sodium (Pantoprazole Sodium 40 Mg/10 Ml Vial) 40 mg IVPUSH DAILY@0630 [facility] Last Admin: 12/30/24 06:04 Dose: 40 mg Documented By: ARIANNA Sodium Chloride (0.9 % Sodium Chloride Flush 3 Ml Syringe) 3 ml IVFLUSH QSHIFT [facility] Last Admin: 12/30/24 08:11 Dose: 3 ml Documented By: JONAS Labs 12/30/24 06:32 12/30/24 06:32 Labs: Laboratory Results - last 24 hr 12/30/24 06:32 MCV 80.1 MCH 22.0 L MCHC 27.5 L RDW 20.8 H Plt Count 242 MPV 10.3 Immature Gran % (Auto) 0.7 H Neut % (Auto) 84.3 H Lymph % (Auto) 6.0 L [place] % (Auto) 7.4 Eos % (Auto) 1.2 Baso % (Auto) 0.4 Lymph # (Auto) 1.0 L [place] # (Auto) 1.2 Eos # (Auto) 0.2 Baso # (Auto) 0.1 Abs Immat Gran (auto) 0.12 H Absolute Neuts (auto) 13.8 H Absolute Nucleated RBC 0.000 Nucleated RBC % (auto) 0.0 Anion Gap 16 Estim Creat Clear Calc 30.6 Estimated GFR 36 Random Glucose 114 Calcium 9.4 Phosphorus 3.2 Magnesium 1.8 Albumin 3.7 Microbiology Microbiology Results: Microbiology 12/27/24 20:04 Urine Culture - Preliminary Urine clean catch - Clean Catch Midstream Gram negative daniel 12/27/24 20:29 Blood Culture - Preliminary Blood - Venous No growth after 48 hours. 12/27/24 20:05 Blood Culture - Preliminary Blood - Venous No growth after 48 hours. Assessment and Plan (1) Septic shock: Status: Acute (2) Acute on chronic heart failure with reduced ejection fraction (HFrEF, <= 40%): Status: Acute (3) Afib: Status: Acute Plan 89-year-old lady with underlying history of COPD, CAD, AFib on Eliquis, systolic heart failure, CKD 3 admitted on 12/27/2024 with bilateral lower extremity pain after mechanical fall on the morning of admission and development of respiratory distress. In ED, she was hypotensive with positive UA and no response to initial colloidal resuscitation requiring initiation of pressor support and admission to intensive care unit. Course also significant for chronic right lower extremity peripheral vascular disease with significant stenosis, but no arterial thrombosis noted on Doppler ultrasound, followed by vascular surgery with possible later intervention. Septic shock d/t UTI, shock resoved following vasopressor urine culture GNR, sensitivity pending continue ceftriaxone started 12/28 Severe peripheral vascular disease with inflow and outflow disease vascular recommends ASA and Plavix, as well as eliquis possible intervention in the future Chronic AFIB, rate controlled continue metoprolol, eliquis for stroke prevention echocardiogram Acute on chronic systolic heart failure, last echo aug EF 40 on IV Lasix drip from ICU, so far negative 7L change to lasix push 40 bid CKD 3, Cr within baseline DVT prophylaxis: eliquis Full code inpt for iv lasix drip for hear failure septic shock on iv abx Total time managing care of this patient today: 45 minutes. Quality Stroke Does the patient have a stroke diagnosis?: No VTE Prior VTE?: No VTE Risk Level:: Medical - moderate - high VTE Device Contraindication: N/A - Device Ordered VTE Drug Contraindication: N/A - Med Ordered
--- NOTE | 2024-12-30 10:45 | CA_ITS ---
Transthoracic Echocardiogram Patient (Last, First, Middle): Jaki Kulkarni, Gender: Female Date of : 1935 Age: 89 Procedure Date: 12/30/2024 Procedure Type: Transthoracic Echocardiogram [place] [facility] [place]: 165.1 cm Weight: 88.91 kg BSA: 1.96 m2 Heart Rate: 82 bpm BP: 149 / 55 mmHg Trailer Mechanic: JERRICA Referring MD: Son Sandoval MD Upholsterer Helper: Marlon Brothers MD Symptoms: acute on chronic heart failure Study Quality: Adequate ECG Rhythm: Atrial Fibrillation Conclusions: - 1. Moderately reduced LV ejection fraction of 35-40% 2. Mildly reduced RV systolic function 3. Moderate biatrial enlargement 4. At least moderate tricuspid regurgitation 5. Moderately elevated right ventricular systolic pressure with significantly elevated right atrial pressures 6. No gross pericardial effusion Findings Left Ventricle Normal left ventricular cavity size. There is normal left ventricular wall thickness. The left ventricular systolic function is moderately decreased. The visually estimated ejection fraction is between 35-40%. Diastolic function is indeterminate on the basis of available data. Right Ventricle Mildly increased right ventricular cavity size. There is mildly decreased right ventricular systolic function. Atria The left atrium is moderately dilated. There is no evidence of interatrial shunt. The right atrium is moderately dilated. Aortic Valve Normal aortic valve structure and function. There is no aortic valve stenosis. There is no aortic valve regurgitation. Mitral Valve There is mild anterior mitral leaflet thickening. There is mild mitral annular calcification. There is trace mitral valve regurgitation. There is no mitral valve stenosis. Pulmonic Valve The pulmonic valve was not well visualized. Tricuspid Valve Normal tricuspid valve structure. There is moderate tricuspid valve regurgitation. Significantly elevated right atrial pressure. Moderate pulmonary hypertension is present. Great Vessels All visible segments of the aorta are normal in size. The pulmonary artery was not well visualized. There is no dilatation of the ascending aorta measuring 2.90 cm. Venous The inferior vena cava is moderately dilated and does not collapse with inspiration. Pericardium/Pleural There is no evidence of pericardial effusion. There is a left sided pleural effusion. Prior Study Comparison No significant change compared to prior study dated: 08/28/2024. Measurements 2D Linear Measurements IVSd: 1.11 0.6-0.9/0.6-1.0 cm LVIDd: 4.07 3.9-5.3/4.2-5.9 cm LVIDd Index: 2.08 2.4-3.2/2.2-3.1 cm/m2 LVIDs: 2.80 2.0-3.6 cm LVPWd: 0.80 0.7-1.1 cm LA Diam: 4.30 2.7-3.8/3.0-4.0 cm LAIDs Index: 2.19 1.5-2.3 cm/m2 LV Mass: 151.73 67-162/88-224 g LV Mass Index: 77.41 43-95/49-115 g/m2 LVOT Diam: 1.90 3.0+(-)1.3 cm 2D Systolic Function EF 4C: 41.00 >55% EF 2C: 36.00 >55% EF BiP: 39.90 >55% Mitral Valve MV VTI: 0.34 MV Pk Romeo: 1.64 MV Mn Romeo: 0.71 MV Pk Grad: 11.00 MV Mn Grad: 3.00 MV Pk E: 1.59 E'Lateral: 6.31 E'Medial: 5.49 E/E' Med: 29.00 E/E' Lat: 25.20 MVA Continuity: 1.18 Aortic Valve AoV Pk Romeo: 1.07 AoV Pk Grad: 5.00 LVOT LVOT Pk Romeo: 0.80 LVOT Mn Romeo: 0.54 LVOT VTI: 0.14 LVOT Pk Grad: 3.00 LVOT Mn Grad: 1.00 LVOT Diam: 1.90 LVOT Area: 2.84 Diastolic Function MV Pk E: 1.59 E'Medial: 5.49 E/E' Med: 29.00 E' Laterial: 6.31 E/E' Lat: 25.20 Right Ventricle TAPSE (mm): 15.20 TVS' Romeo: 11.40 Tricuspid Valve TR Pk Romeo: 3.29 TR Pk Grad: 43.00 RA Press: 15.00 RVSP: 58.00 Great Vessels Aorta Sinus of Valsalva: 2.60 2.0-3.5 cm Ao Asc: 2.90 2.1-3.4 cm Pulmonary Veins Pulm Vein S/D 0.70 Pulmonary Valve PV Pk Romeo: 0.92 Peak PV Grad: 3.00 Updated in Other Vendor System with Status of Final Marlon Brothers MD electronically signed on 12/30/2024 1:24:25 PM with status of Final
--- NOTE | 2024-12-30 12:32 | HO.VASCPN ---
Subjective Subjective Date of Service: 12/30/24 Interval history: Jaki is doing ok today. She denies any shortness of breath, diff breathing, and CP. She complains of intermittent right foot/knee pain. She denies any pain at this time. She states sometimes her foot feels numb. She has been eating and drinking well. She has no new concerns this morning. Physical Exam Vital Signs: Vital Signs: Last Vital Signs Temp 98.4 F 12/30/24 11:24 Pulse 94 12/30/24 11:24 Resp 20 12/30/24 11:24 BP 131/61 12/30/24 11:24 Pulse Ox 99 12/30/24 11:24 O2 Del Method Nasal Cannula 12/30/24 11:24 O2 Flow Rate 2 12/30/24 11:24 Oxygen Flow Rate 1 12/28/24 02:00 BMI result Body Mass Index 32.6 Const: General: comfortable and no acute distress Orientation/consciousness: patient oriented x3 HEENT: Ears: hearing grossly normal bilaterally Resp: Effort & Inspection: normal respiratory effort and able to speak in complete sentences Auscultation: clear to auscultation bilaterally Cardio: Rate: regular rate Rhythm: regular rhythm Heart sounds: S1 normal heart sound present and S2 normal heart sound present Bruits: no abdominal aortic bruits, no carotid bruits, no femoral bruits and no renal bruits GI: Palpation (GI): No Abdominal aortic bruit present Neuro: General: patient oriented x3 Cranial nerves: Yes CN's II-XII intact bilaterally Extrem: Other: Right foot: dusky toes and plantar aspect of her foot below her toes. Not painful to palpation. No wounds/ulcers noted. Palpable PT pulse, DP not palpable. Progress Note: A&P Assessment and plan (1) PAD (peripheral artery disease): Status: Acute Assessment and Plan: Jaki remains stable from a vascular standpoint. She was found to have inflow and outflow disease and will need further evaluation with an angio; however, due to her current medical conditions, we will have her follow up with us outpatient and be able to schedule it outpatient. We will sign off for now. If there are any questions or concerns, please do not hesitate to reach out to us. Time Spent With Patient Time: Total time managing care of this patient today ____ minutes. Procedures Date of Service Date of Service: 12/30/24 Quality Stroke Does the patient have a stroke diagnosis?: No VTE Prior VTE?: No VTE Risk Level:: Medical - moderate - high VTE Device Contraindication: N/A - Device Ordered VTE Drug Contraindication: N/A - Med Ordered
--- NOTE | 2024-12-30 13:20 | MHC.CM.PN ---
EMR reviewed and per MD rounds, pt is not medically cleared for discharge due to management of heart failure, pt was downgraded from ICU.
[2024-12-30] MEDS: cefTRIAXone sodium 1 GM VIAL IVPUSH (19:45)
[2024-12-31] VITALS (15 sets, daily range): BP systolic 109–169; BP diastolic 44–80; PULSE 76–105; RESP 16–20; TEMP 36.1–37.3; O2SAT 86–97; BMI 29.2
[2024-12-31] MEDS: HYDROmorphone HCl 0.5 MG/0.5 ML SYRINGE 0.25 MG IVPUSH ×3 (00:57→17:17)
[2024-12-31] MEDS: Albuterol/Iprat 2.5/0.5MG 3 ML AMPUL.NEB INHALE ×2 (05:44→23:24)
[2024-12-31] MEDS: Omeprazole 20 MG CAPSULE.DR PO (05:51)
[2024-12-31] MEDS: Clopidogrel Bisulfate 75 MG TABLET PO (09:08)
[2024-12-31] MEDS: Aspirin Enteric Coated 81 MG TABLET.DR PO (09:08)
[2024-12-31] MEDS: Apixaban 2.5 MG TABLET PO ×2 (09:09→19:50)
[2024-12-31] MEDS: Ciprofloxacin Lactate/D5W 400 MG/200 ML PIGGYBACK 200 MG IV (09:09)
[2024-12-31] MEDS: 0.9 % Sodium Chloride Flush 3 ML SYRINGE IVFLUSH ×2 (09:09→14:34)
[2024-12-31] MEDS: Metoprolol Succinate ER 25 MG TAB.ER.24H PO (09:09)
[2024-12-31] MEDS: Magnesium Sulfate/H2O 2 GM/50 ML PIGGYBACK IV (10:24)
[2024-12-31 13:50] LABS: Anion Gap 17 (12-20); Blood Urea Nitrogen 35 mg/dL (9-16); Calcium 9.6 mg/dL (8.4-10.2); Chloride 87 mmol/L (96-108); Creatinine Clr Calc Pharmacy 33.9; Estimated Glomerular Filt Rate 44; Glucose Random 123 mg/dL (60-115); Sodium 144 mmol/L (135-145)
[2024-12-31 13:53] LABS: Carbon Dioxide 43 mmol/L (22-29); Potassium 2.8 mmol/L (3.3-5.1)
--- NOTE | 2024-12-31 14:20 | P.PNIM_ITS ---
Subjective Subjective Date of Service: 12/31/24 Interval History: feels better but overall weak low potassium level tolerating PO growing PSeudomonas in urine Had run of VTach on tele Review of Systems Review of Systems: Yes all other systems are reviewed and are negative Physical Exam 2 Vital Signs: Vital Signs: Last Vital Signs Temp 98.4 F 12/31/24 10:50 Pulse 99 12/31/24 13:24 Resp 20 12/31/24 10:50 BP 118/52 L 12/31/24 13:24 Pulse Ox 93 12/31/24 13:24 O2 Del Method Nasal Cannula 12/31/24 10:50 O2 Flow Rate 1 12/31/24 10:50 Oxygen Flow Rate 1 12/28/24 02:00 BMI result Body Mass Index 29.2 Const: Other: Constitutional : interactive, not in distress, frail looking Cardiovascular : no JVP, no lower extremity edema Respiratory : bilateral chest movement, not in resp distress Gastrointestinal: soft, lax, Non tender Skin : Warm, Dry vascular; RLE dusky with weak pulses, mild sensation def., good motor Neurological : Alert & oriented , No focal deficit Objective Data Active Medications Albuterol Sulfate (Albuterol Sulfate (0.083%) 2.5 Mg/3 Ml Vial.Neb) 2.5 mg INHALE Q3H PRN PRN Reason: Wheezing Albuterol/Ipratropium (Albuterol/Iprat 2.5/0.5mg 3 Ml Ampul.Neb) 3 ml INHALE Q6H [facility] Last Admin: 12/31/24 11:21 Dose: Not Given Documented By: DONA Non-Admin Reason: Patient Refused Apixaban (Apixaban 2.5 Mg Tablet) 2.5 mg PO BID [facility] Last Admin: 12/31/24 09:09 Dose: 2.5 mg Documented By: TAY Aspirin (Aspirin Enteric Coated 81 Mg Tablet.) 81 mg PO DAILY [facility] Last Admin: 12/31/24 09:08 Dose: 81 mg Documented By: TAY Clopidogrel Bisulfate (Clopidogrel Bisulfate 75 Mg Tablet) 75 mg PO DAILY [facility] Last Admin: 12/31/24 09:08 Dose: 75 mg Documented By: TAY Hydromorphone HCl (Hydromorphone Hcl 0.5 Mg/0.5 Ml Syringe) 0.25 mg IVPUSH Q3H PRN; Protocol PRN Reason: Pain, Severe (Pain Scale 7-10) Last Admin: 12/31/24 05:51 Dose: 0.25 mg Documented By: KULWINDER Furosemide 200 mg/ Sodium (Chloride) 100 mls @ 2.5 mls/hr IVCONT .Q24H [facility] Last Admin: 12/31/24 01:03 Dose: Not Given Documented By: KULWINDER Non-Admin Reason: Medication infusing with vol remaining Ciprofloxacin (Cipro) 400 mg in 200 mls @ 200 mls/hr IV Q24H [facility] Last Infusion: 12/31/24 10:44 Dose: Infused Documented By: TAY Metoprolol Succinate (Metoprolol Succinate Er 25 Mg Tab.Er.24h) 25 mg PO DAILY [facility]; Protocol Last Admin: 12/31/24 09:09 Dose: 25 mg Documented By: TAY Omeprazole (Omeprazole 20 Mg Capsule.Dr) 20 mg PO DAILY@0630 [facility] Last Admin: 12/31/24 05:51 Dose: 20 mg Documented By: KULWINDER Sodium Chloride (0.9 % Sodium Chloride Flush 3 Ml Syringe) 3 ml IVFLUSH QSHIFT [facility] Last Admin: 12/31/24 09:09 Dose: 3 ml Documented By: TAY Labs 12/30/24 06:32 12/31/24 13:07 Labs: Laboratory Results - last 24 hr 12/31/24 13:07 Anion Gap 17 Estim Creat Clear Calc 33.9 Estimated GFR 44 Random Glucose 123 H Calcium 9.6 Magnesium 2.0 Microbiology Microbiology Results: Microbiology 12/27/24 20:04 Urine Culture - Final Urine clean catch - Clean Catch Midstream Pseudomonas aeruginosa Assessment and Plan (1) Acute on chronic heart failure with reduced ejection fraction (HFrEF, <= 40%): Status: Acute (2) Septic shock: Status: Acute (3) Acute hypoxemic respiratory failure: Status: Acute (4) Acute UTI: Status: Acute (5) Weakness: Status: Acute Plan 89-year-old lady with underlying history of COPD, CAD, AFib on Eliquis, systolic heart failure, CKD 3 admitted on 12/27/2024 with bilateral lower extremity pain after mechanical fall on the morning of admission and development of respiratory distress. In ED, she was hypotensive with positive UA and no response to initial colloidal resuscitation requiring initiation of pressor support and admission to intensive care unit. Course also significant for chronic right lower extremity peripheral vascular disease with significant stenosis, but no arterial thrombosis noted on Doppler ultrasound, followed by vascular surgery with possible later intervention. Septic shock d/t UTI urine culture grew sensitive Pseudomonas DC ceftriaxone started 12/28 start Ciprofloxacin IV Severe peripheral vascular disease with inflow and outflow disease vascular recommends ASA and Plavix, as well as eliquis possible intervention in the future Vascular , found to have inflow and outflow disease and will need further evaluation with an angio as OP Acute hypokalemia IV and PO replacement follow BMP Chronic AFIB, rate controlled continue metoprolol, eliquis for stroke prevention echocardiogram Question NSVT vs Afib w Abberancy Asymptomatic Keep K>4 and Mg >2 monitor on Tele Acute on chronic systolic heart failure, last echo genesis EF 40 dc IV Lasix drip change to lasix 40 bid once Bicarb improves to use Diamox for now CKD 3, Cr within baseline DVT prophylaxis: eliquis Full code inpt for iv Diamox, Potassium replacement, monitor on Telemetry for NSVT pending weaning off O2 Quality Stroke Does the patient have a stroke diagnosis?: No VTE Prior VTE?: No VTE Risk Level:: Medical - moderate - high VTE Device Contraindication: N/A - Device Ordered VTE Drug Contraindication: N/A - Med Ordered
[2024-12-31] MEDS: Potassium Chloride/H20 10 MEQ/100 ML PIGGYBACK 100 MEQ IV ×6 (14:33→20:56)
[2024-12-31] MEDS: acetaZOLAMIDE sodium 500 MG VIAL 250 MG IVPUSH ×2 (14:33→20:35)
[2024-12-31] MEDS: Pantoprazole Sodium 20 MG TABLET.DR 40 MG PO (15:50)
[2025-01-01] VITALS (9 sets, daily range): BP systolic 104–152; BP diastolic 56–65; PULSE 60–106; RESP 17–18; TEMP 36.2–36.9; O2SAT 89–94; BMI 27.7
--- NOTE | 2025-01-01 | ECG_ITS ---
Test Reason : MD order Blood Pressure : */* mmHG Vent. Rate : 97 BPM Atrial Rate : * BPM P-R Int : * ms QRS Dur : 80 ms QT Int : 336 ms P-R-T Axes : * 80 4 degrees QTcB Int : 426 ms Atrial fibrillation Abnormal ECG When compared with ECG of 27-Dec-2024 13:42, T wave inversion now evident in Anterior leads Referred By: Sue Manriquez Electronically Signed By: ESTHER FUENTES MD
[2025-01-01] MEDS: 0.9 % Sodium Chloride Flush 3 ML SYRINGE IVFLUSH ×3 (01:05→20:59)
[2025-01-01] MEDS: Pantoprazole Sodium 20 MG TABLET.DR 40 MG PO ×2 (05:19→16:09)
[2025-01-01] MEDS: Albuterol/Iprat 2.5/0.5MG 3 ML AMPUL.NEB INHALE ×2 (05:53→11:10)
[2025-01-01 06:53] LABS: MANUAL DIFF FLAG NO
[2025-01-01 07:02] LABS: Basophils Absolute Auto 0.1 X10*3/uL (0.0-0.2); Basophils Percent Auto 0.3 % (0-2); Eosinophils Absolute Auto 0.3 X10*3/uL (0.0-0.4); Eosinophils Percent Auto 1.5 % (0-4); Hematocrit 32.7 % (37.0-47.0); Hemoglobin 9.4 g/dl (12.0-16.0); Imm Gran Abs Auto 0.09 X10*3/uL (0.00-0.03); Imm Gran Pct Auto 0.5 % (0.0-0.4); Lymphocytes Absolute Auto 1.2 X10*3/uL (1.2-4.9); Lymphocytes Percent Auto 6.6 % (20-40); Mean Corpuscular HGB Conc 28.7 g/dl (31.0-35.0); Mean Corpuscular Hemoglobin 21.8 pg (27.0-33.0); Mean Corpuscular Volume 75.9 fL (80.0-98.0); Mean Platelet Volume 10.2 fL (9.4-12.3); Monocytes Percent Auto 5.6 % (2-11); Neutrophils Absolute Auto 15.1 x10*3/uL (2.0-8.3); Neutrophils Percent Auto 85.5 % (45-73); Platelet Count 244 X10*3/uL (160-400); Red Blood Count 4.31 X10*6/uL (4.20-5.50); Red Cell Distribution Width 21.4 % (11.0-16.0); White Blood Count 17.6 X10*3/uL (4.8-10.8)
[2025-01-01 07:15] LABS: Anion Gap 15 (12-20); Blood Urea Nitrogen 35 mg/dL (9-16); Calcium 9.4 mg/dL (8.4-10.2); Carbon Dioxide 36 mmol/L (22-29); Chloride 92 mmol/L (96-108); Creatinine Clr Calc Pharmacy 38.8; Estimated Glomerular Filt Rate 52; Glucose Random 110 mg/dL (60-115); Potassium 3.2 mmol/L (3.3-5.1); Sodium 140 mmol/L (135-145)
[2025-01-01] MEDS: Clopidogrel Bisulfate 75 MG TABLET PO (08:09)
[2025-01-01] MEDS: acetaZOLAMIDE sodium 500 MG VIAL 250 MG IVPUSH ×2 (08:09→20:58)
[2025-01-01] MEDS: Potassium Chloride/H20 10 MEQ/100 ML PIGGYBACK 100 MEQ IV ×2 (08:09→09:29)
[2025-01-01] MEDS: Potassium Chloride ER 20 MEQ TAB.ER.PRT 40 MEQ PO (08:10)
[2025-01-01] MEDS: Magnesium Oxide 400 MG TABLET 800 MG PO (08:10)
[2025-01-01] MEDS: Apixaban 2.5 MG TABLET PO ×2 (08:10→20:58)
[2025-01-01] MEDS: Metoprolol Succinate ER 25 MG TAB.ER.24H PO (08:10)
[2025-01-01] MEDS: Aspirin Enteric Coated 81 MG TABLET.DR PO (08:10)
[2025-01-01] MEDS: Ciprofloxacin Lactate/D5W 400 MG/200 ML PIGGYBACK 200 MG IV (08:20)
--- NOTE | 2025-01-01 08:51 | MHC.CM.PN ---
Addendum entered by Anna Wells 01/01/25 15:46: Bed offer received from [facility], pts daughter/HCP Gianna accepts. IMM given 01/01. Pt will discharge to [facility] tomorrow via BLS/[facility]. Addendum entered by Anna Wells 01/01/25 12:58: EMR reviewed and per MD rounds, pt is medically cleared for discharge to STR. This CM placed a call to pts daughter/HCP Gianna to discuss STR options, voicemail left, awaiting return call. Original Note: PT evaluated pt and has recommended STR, this CM placed call to pts daughter/HCP Gianna to discuss, she doesn't have a facility in mind but would like a list of facilities to review, list of SNF's emailed to Gianna via [email or web address]. Gianna states she would not like her mother to return to [place] for [facility] due to a past experience that wasn't good. Will discuss STR options with Gianna after she reviews the options.
--- NOTE | 2025-01-01 14:52 | P.PNIM_ITS ---
Subjective Subjective Date of Service: 01/01/25 Interval History: feels better but overall weak low potassium level tolerating PO growing PSeudomonas in urine Had run of VTach on tele Physical Exam 2 Vital Signs: Vital Signs: Last Vital Signs Temp 97.2 F 01/01/25 11:34 Pulse 97 01/01/25 11:34 Resp 18 01/01/25 11:34 BP 104/56 L 01/01/25 11:34 Pulse Ox 91 L 01/01/25 11:34 O2 Del Method Room Air 01/01/25 11:34 O2 Flow Rate 1 01/01/25 06:55 Oxygen Flow Rate 1 12/28/24 02:00 BMI result Body Mass Index 27.7 Const: Other: Constitutional : interactive, not in distress, frail looking Cardiovascular : no JVP, no lower extremity edema Respiratory : bilateral chest movement, not in resp distress Gastrointestinal: soft, lax, Non tender Skin : Warm, Dry vascular; RLE dusky with weak pulses, mild sensation def., good motor Neurological : Alert & oriented , No focal deficit Objective Data Active Medications Acetazolamide (Acetazolamide Sodium 500 Mg Vial) 250 mg IVPUSH BID [facility] Last Admin: 01/01/25 08:09 Dose: 250 mg Documented By: TAY Albuterol Sulfate (Albuterol Sulfate (0.083%) 2.5 Mg/3 Ml Vial.Neb) 2.5 mg INHALE Q3H PRN PRN Reason: Wheezing Albuterol/Ipratropium (Albuterol/Iprat 2.5/0.5mg 3 Ml Ampul.Neb) 3 ml INHALE Q6H [facility] Last Admin: 01/01/25 11:10 Dose: 3 ml Documented By: DONA Apixaban (Apixaban 2.5 Mg Tablet) 2.5 mg PO BID [facility] Last Admin: 01/01/25 08:10 Dose: 2.5 mg Documented By: TAY Aspirin (Aspirin Enteric Coated 81 Mg Tablet.) 81 mg PO DAILY [facility] Last Admin: 01/01/25 08:10 Dose: 81 mg Documented By: TAY Clopidogrel Bisulfate (Clopidogrel Bisulfate 75 Mg Tablet) 75 mg PO DAILY [facility] Last Admin: 01/01/25 08:09 Dose: 75 mg Documented By: TAY Hydromorphone HCl (Hydromorphone Hcl 0.5 Mg/0.5 Ml Syringe) 0.25 mg IVPUSH Q3H PRN; Protocol PRN Reason: Pain, Severe (Pain Scale 7-10) Last Admin: 12/31/24 17:17 Dose: 0.25 mg Documented By: TAY Ciprofloxacin (Cipro) 400 mg in 200 mls @ 200 mls/hr IV Q24H [facility] Last Infusion: 01/01/25 09:29 Dose: Infused Documented By: TAY Magnesium Oxide (Magnesium Oxide 400 Mg Tablet) 800 mg PO DAILY [facility] Last Admin: 01/01/25 08:10 Dose: 800 mg Documented By: TAY Metoprolol Succinate (Metoprolol Succinate Er 25 Mg Tab.Er.24h) 25 mg PO DAILY [facility]; Protocol Last Admin: 01/01/25 08:10 Dose: 25 mg Documented By: TAY Pantoprazole Sodium (Pantoprazole Sodium 20 Mg Tablet.Dr) 40 mg PO BID@0630,1630 [facility] Last Admin: 01/01/25 05:19 Dose: 40 mg Documented By: SAM Sodium Chloride (0.9 % Sodium Chloride Flush 3 Ml Syringe) 3 ml IVFLUSH QSHIFT [facility] Last Admin: 01/01/25 08:11 Dose: 3 ml Documented By: TAY Labs 01/01/25 06:15 01/01/25 06:15 Labs: Laboratory Results - last 24 hr 01/01/25 06:15 MCV 75.9 L MCH 21.8 L MCHC 28.7 L RDW 21.4 H Plt Count 244 MPV 10.2 Immature Gran % (Auto) 0.5 H Neut % (Auto) 85.5 H Lymph % (Auto) 6.6 L [place] % (Auto) 5.6 Eos % (Auto) 1.5 Baso % (Auto) 0.3 Lymph # (Auto) 1.2 [place] # (Auto) 1.0 Eos # (Auto) 0.3 Baso # (Auto) 0.1 Abs Immat Gran (auto) 0.09 H Absolute Neuts (auto) 15.1 H Absolute Nucleated RBC 0.000 Nucleated RBC % (auto) 0.0 Anion Gap 15 Estim Creat Clear Calc 38.8 Estimated GFR 52 Random Glucose 110 Calcium 9.4 Assessment and Plan (1) Acute on chronic heart failure with reduced ejection fraction (HFrEF, <= 40%): Status: Acute (2) Septic shock: Status: Acute (3) Acute UTI: Status: Acute Plan 89-year-old lady with underlying history of COPD, CAD, AFib on Eliquis, systolic heart failure, CKD 3 admitted on 12/27/2024 with bilateral lower extremity pain after mechanical fall on the morning of admission and development of respiratory distress. In ED, she was hypotensive with positive UA and no response to initial colloidal resuscitation requiring initiation of pressor support and admission to intensive care unit. Course also significant for chronic right lower extremity peripheral vascular disease with significant stenosis, but no arterial thrombosis noted on Doppler ultrasound, followed by vascular surgery with possible later intervention. Septic shock d/t UTI urine culture grew sensitive Pseudomonas DC ceftriaxone started 12/28 start Ciprofloxacin IV Severe peripheral vascular disease with inflow and outflow disease vascular recommends ASA and Plavix, as well as eliquis possible intervention in the future Vascular , found to have inflow and outflow disease and will need further evaluation with an angio as OP, to avoid placing any Acute hypokalemia IV and PO replacement follow BMP Chronic AFIB, rate controlled continue metoprolol, eliquis for stroke prevention echocardiogram Question NSVT looks more like Afib w Abberancy Asymptomatic Keep K>4 and Mg >2 monitor on Tele Acute on chronic systolic heart failure, last echo genesis EF 40 dc IV Lasix drip change to lasix 40 bid once Bicarb improves to use Diamox for now CKD 3, Cr within baseline DVT prophylaxis: eliquis Full code inpt for iv Diamox, Potassium replacement, monitor on Telemetry for arrythmia pending weaning off O2 Quality Stroke Does the patient have a stroke diagnosis?: No VTE Prior VTE?: No VTE Risk Level:: Medical - moderate - high VTE Device Contraindication: N/A - Device Ordered VTE Drug Contraindication: N/A - Med Ordered
[2025-01-02] VITALS: BP 126/58; PULSE 104; RESP 20; TEMP 36.3; O2SAT 93
[2025-01-02 04:00] VITALS: BP 151/70; PULSE 98; RESP 18; TEMP 36.3; O2SAT 95
[2025-01-02 06:00] VITALS: BMI 27.1
[2025-01-02] MEDS: Albuterol/Iprat 2.5/0.5MG 3 ML AMPUL.NEB INHALE (06:20)
[2025-01-02 06:22] LABS: MANUAL DIFF FLAG NO
[2025-01-02 06:37] LABS: Basophils Percent Auto 0.2 % (0-2); Eosinophils Absolute Auto 0.3 X10*3/uL (0.0-0.4); Eosinophils Percent Auto 2.2 % (0-4); Hematocrit 32.3 % (37.0-47.0); Imm Gran Abs Auto 0.08 X10*3/uL (0.00-0.03); Imm Gran Pct Auto 0.6 % (0.0-0.4); Lymphocytes Percent Auto 7.8 % (20-40); Mean Corpuscular HGB Conc 27.9 g/dl (31.0-35.0); Mean Corpuscular Hemoglobin 21.6 pg (27.0-33.0); Mean Corpuscular Volume 77.6 fL (80.0-98.0); Mean Platelet Volume 10.4 fL (9.4-12.3); Monocytes Absolute Auto 0.9 X10*3/uL (0.1-1.2); Neutrophils Absolute Auto 10.9 x10*3/uL (2.0-8.3); Neutrophils Percent Auto 82.2 % (45-73); Platelet Count 240 X10*3/uL (160-400); Red Blood Count 4.16 X10*6/uL (4.20-5.50); Red Cell Distribution Width 21.2 % (11.0-16.0); White Blood Count 13.3 X10*3/uL (4.8-10.8)
[2025-01-02 06:45] LABS: Anion Gap 12 (12-20); Blood Urea Nitrogen 35 mg/dL (9-16); Calcium 9.5 mg/dL (8.4-10.2); Carbon Dioxide 31 mmol/L (22-29); Chloride 101 mmol/L (96-108); Creatinine Clr Calc Pharmacy 37.9; Estimated Glomerular Filt Rate 52; Glucose Random 104 mg/dL (60-115); Potassium 3.4 mmol/L (3.3-5.1); Sodium 141 mmol/L (135-145)
[2025-01-02 08:00] VITALS: BP 173/76; PULSE 99; RESP 19; TEMP 36.2; O2SAT 93
[2025-01-02] MEDS: Apixaban 2.5 MG TABLET PO (09:40)
[2025-01-02] MEDS: Metoprolol Succinate ER 25 MG TAB.ER.24H PO (09:40)
[2025-01-02] MEDS: acetaZOLAMIDE sodium 500 MG VIAL 250 MG IVPUSH (09:41)
[2025-01-02] MEDS: Magnesium Oxide 400 MG TABLET 800 MG PO (09:41)
[2025-01-02] MEDS: Aspirin Enteric Coated 81 MG TABLET.DR PO (09:41)
[2025-01-02] MEDS: Clopidogrel Bisulfate 75 MG TABLET PO (09:41)
[2025-01-02] MEDS: Ciprofloxacin Lactate/D5W 400 MG/200 ML PIGGYBACK 200 MG IV (09:42)
[2025-01-02] MEDS: 0.9 % Sodium Chloride Flush 3 ML SYRINGE IVFLUSH (10:08)
--- NOTE | 2025-01-02 10:38 | MHC.CM.PN ---
Pt has been medically cleared to DC, she will go to [facility] today via BLS.
--- NOTE | 2025-01-02 10:46 | PM.DS ---
DS: Providers Provider Date of Service: 01/02/25 Date of admission: 12/27/24 21:05 Date of discharge: 01/02/25 Primary care physician: Irving Meneses MD Consults: 12/28/24 09:09 Consult to Vascular Surgery Stat Consulting [place] [facility] [place] Reason for consultation: Right LE ischemia Has provider been notified: No DS: Diagnosis Discharge Diagnosis (1) Acute on chronic heart failure with reduced ejection fraction (HFrEF, <= 40%): Status: Acute (2) Septic shock: Status: Acute (3) Acute UTI: Status: Acute (4) Acute hypoxemic respiratory failure: Status: Acute (5) Weakness: Status: Acute (6) PAD (peripheral artery disease): Status: Acute (7) Acute congestive heart failure: Status: Acute DS: Summary Hospital Course Hospital Course: Admission note HPI by ICU provider 89-year-old female with underlying history of COPD who is still a smoker, coronary disease post catheterization unknown details, atrial fibrillation on Eliquis, hypertension, CHF with ejection fraction of 40% and moderate to severe tricuspid regurgitation per echo in August of this year, GERD, arthritis, chronic kidney disease stage 3, COVID-19, restrictive lung disease, iron deficiency anemia. ?The patient had presented to the emergency room with complaints of bilateral lower extremity pain after falling at home around 130 in the morning.? The patient mentioned that she could not bear weight on her right leg, had other generalized weakness, felt somewhat short of breath and her heart going pretty fast every now and then.? She admits to having a cough without sputum production, no fever or chills.? She also admits having swelling of the legs which is worse than usual. ?Is unclear if she had head trauma, loss of consciousness but the patient is on blood thinners. She had a variety of x-rays including bilateral knees which showed no acute fractures and evidence of DJD. ?Chest x-ray showed cardiomegaly with pulmonary vascular congestion and pulmonary edema.? Small left pleural effusion. ?Head CT no acute intracranial findings with the exception of fluid on the right mastoid air cells and middle ear suggestive of auto mastoiditis.? However now clinical correlation is found as the patient does not have pain, edema or erythema around the mastoid area. ?Cervical spine CT shows no acute injury of the cervical spine. ED laboratories showed no white count, H and H of 10.4 and 37.8 respectively, platelets 223.? Normal electrolytes BUN 40 creatinine 1.39.? BNP 966, albumin 3.4, negative respiratory panel.? Urinalysis positive nitrates positive large leukocyte esterase and more than 50 white blood cells per high-power field.? 4+ bacteria. ?Given the concern for CHF the patient did not receive 30 mL/kilos of IV fluids, instead she got albumin, was treated with Rocephin and Zithromax.? It was identified that the patient did have pulmonary edema features but no Lasix was administered for she continued to be hypotensive therefore day called us for a clinical opinion via consult. Upon seeing her in the emergency room, she seemed to be in respiratory distress, tachycardic, hypotensive and diffusely edematous.? It was clear that the patient was not stable to go to the floor rather will admit her to the ICU, for hemodynamic stabilization, diuresis and treatment of her infection among other active issues. Hospital course The patient was treated for: # Septic shock d/t UTI with urine culture grew sensitive Pseudomonas. Was originally on Ceftriaxone started 12/28 which was discontinued and switched to Ciprofloxacin IV. To be discharged on PO Ciprofloxacin to finish total of 10 days of Ciprofloxacin. # Severe peripheral vascular disease with inflow and outflow disease evaluated by vascular syrgery who recommended ASA and Plavix, as well as eliquis possible intervention in the future by outpatient Vascular surgery evaluation in clinic as found to have inflow and outflow disease and will need further evaluation with an angio as OP, to avoid placing any forgien body while on antibiotics post septic shock. discussed with her HCP who understands and agrees with the plan. # Acute hypokalemia treated with IV and PO replacement with good response. # Chronic AFIB, rate controlled on metoprolol, eliquis for stroke prevention. Had a run of Afib w Abberancy which was Asymptomatic. To keep K>4 and Mg >2. On Magnesium supplement. # Acute on chronic systolic heart failure, last echo aug EF 40. Treated with IV Lasix drip then changed to lasix 40 Po on discharge. Discharge plan Hold Amlodipine and monitor blood pressure for the next week before restarting if needed Continue Ciprofloxacin for 1 more week Stop Omeprazole, Start Pantoprazole Discontinue Gabapentin and Tizanidine Start Magnesium supplement daily Start Plavix on top of Aspirin and Eliquis [place] [facility] [place] Dr. Marley for Right lower extremity angiogram and stent placement in 2 weeks Time Attestation Discharge Coordination Time (in mins): 48 Quality: Safe Use of Opioids Does Pt have an Active Cancer Diagnosis on the Problem List?: No Quality: Stroke Does the patient have a stroke diagnosis?: No Physical Exam Vital Signs: Vital Signs: Last Vital Signs Temp 97.1 F 01/02/25 08:00 Pulse 99 01/02/25 08:00 Resp 19 01/02/25 08:00 BP 173/76 H 01/02/25 08:00 Pulse Ox 93 01/02/25 08:00 O2 Del Method Nasal Cannula 01/02/25 08:00 O2 Flow Rate 2 01/02/25 08:00 Oxygen Flow Rate 1 12/28/24 02:00 BMI result Body Mass Index 27.1 Const: Other: Constitutional : interactive, not in distress, frail looking Cardiovascular : no JVP, no lower extremity edema Respiratory : bilateral chest movement, not in resp distress Gastrointestinal: soft, lax, Non tender Skin : Warm, Dry vascular; RLE dusky with weak pulses, mild sensation def., good motor Neurological : Alert & oriented , No focal deficit DS: Data Data Completed and Pending Completed studies during hospitalization [Text1]: Procedures Assistance with Respiratory Ventilation, Less than 24 Consecutive Hours, Continuous Positive Airway Pressure (08/27/24) Extirpation of Matter from Left Lower Leg Subcutaneous Tissue and Fascia, Open Approach (03/27/22) Introduction of Remdesivir Anti-infective into Peripheral Vein, Percutaneous Approach, [employer] 5 (08/19/23) Repair Left Upper Leg Tendon, Open Approach (03/27/22) Replacement of Left Knee Joint with Synthetic Substitute, Uncemented, Open Approach (02/06/22) Reposition Left Patella with Internal Fixation Device, Open Approach (03/27/22) Labs on day of discharge: Laboratory Results - last 24 hr 01/02/25 06:03 WBC 13.3 H RBC 4.16 L Hgb 9.0 L Hct 32.3 L MCV 77.6 L MCH 21.6 L MCHC 27.9 L RDW 21.2 H Plt Count 240 MPV 10.4 Immature Gran % (Auto) 0.6 H Neut % (Auto) 82.2 H Lymph % (Auto) 7.8 L [place] % (Auto) 7.0 Eos % (Auto) 2.2 Baso % (Auto) 0.2 Lymph # (Auto) 1.0 L [place] # (Auto) 0.9 Eos # (Auto) 0.3 Baso # (Auto) 0.0 Abs Immat Gran (auto) 0.08 H Absolute Neuts (auto) 10.9 H Absolute Nucleated RBC 0.000 Nucleated RBC % (auto) 0.0 Sodium 141 Potassium 3.4 Chloride 101 Carbon Dioxide 31 H Anion Gap 12 BUN 35 H Creatinine 1.01 Estim Creat Clear Calc 37.9 Estimated GFR 52 Random Glucose 104 Calcium 9.5 Imaging Chest x-ray: Radiologist's impression: ITS Impressions Venous Duplex 12/28/24 10:10 IMPRESSION: No acute deep venous thrombosis interrogated veins, left upper extremity. Negative for DVT. Electronically signed by: Amaury Perez MD 12/28/2024 10:37 AM EDT RP Discharge Plan Discharge Anticipated Discharge Date/Time: 01/02/25 10:21 Patient Disposition: Xfer SNF Discharge Diagnosis: PSeudomonas UTI Septic shock Referrals: [facility] [Outside] - 1 Week Irving Meneses MD [Primary Care Provider] - 1 Week Discharge Medications: New clopidogrel 75 mg Tablet 75 mg PO DAILY Qty: 90 0RF magnesium oxide 400 mg (241.3 mg magnesium) Tablet 400 mg PO DAILY Qty: 90 0RF ciprofloxacin HCl 250 mg tablet 250 mg PO BID Qty: 14 0RF pantoprazole 40 mg tablet,delayed release (DR/EC) 40 mg PO DAILY Qty: 90 0RF Continued (DME) Raised Toliet Seat with handels See Rx Instructions .ROUTE .MEDSUPPLY Qty: 1 0RF Rx Instructions: As directed Osteoarthritis (DME) blood pressure monitor [Blood Pressure Kit] Kit See Rx Instructions .Route Qty: 1 0RF Rx Instructions: As directed (DME) ROLLATOR See Rx Instructions .Route .MEDSUPPLY Qty: 1 0RF Rx Instructions: As directed (DME) Orthpedic Shoes See Rx Instructions .Route .MEDSUPPLY Qty: 1 0RF Rx Instructions: As directed (DME) Depend Underwear For Women XL Misc See Rx Instructions .Route Qty: 68 0RF Rx Instructions: To be changed 6 to 8 times a day due to overactive bladder. (DME) adult pull ups/ Extra large XL See Rx Instructions .Route .MEDSUPPLY Qty: 1 3RF Rx Instructions: As directed (DME) wipes See Rx Instructions .Route .MEDSUPPLY Qty: 5 3RF Rx Instructions: As directed (DME) Portable ramp See Rx Instructions .Route .MEDSUPPLY Qty: 1 0RF Rx Instructions: As directed (DME) wheel chair See Rx Instructions .Route .MEDSUPPLY Qty: 1 0RF Rx Instructions: As directed apixaban 2.5 mg tablet 2.5 mg PO BID Qty: 60 5RF metoprolol succinate 25 mg tablet extended release 24 hr 25 mg PO BID Qty: 60 2RF Protocol: Hold for SBP/HR < HOLD for SBP < : 90 HOLD for HR < : 60 potassium chloride 20 mEq tablet,ER particles/crystals 20 meq PO DAILY 90 Days Qty: 90 0RF Gemtesa 75 mg tablet 75 mg PO DAILY 30 Days Qty: 30 1RF diclofenac sodium 1 % gel 4 g topical QID PRN (Reason: for pain) Qty: 100 0RF furosemide 40 mg tablet 40 mg PO DAILY Qty: 30 2RF Protocol: Hold for SBP< HOLD for SBP < : 90 acetaminophen 650 mg Tablet Extended Release 650 mg PO Q8H PRN (Reason: Pain) fesoterodine 4 mg tablet extended release 24 hr 4 mg PO DAILY PRN (Reason: Overactive Bladder) rosuvastatin 20 mg tablet 20 mg PO BEDTIME (DME) RECLINER LIFT CHAIR RECLINER LIFT CHAIR See Rx Instructions .Route .MEDSUPPLY Qty: 1 0RF Rx Instructions: use as directed; brimonidine 0.2 % drops 1 drp ophthalmic (eye) TID aspirin 81 mg capsule 81 mg PO DAILY Held amlodipine 10 mg tablet 10 mg PO DAILY Qty: 90 3RF Hold Instructions: Monitor blood pressure at facility and restart if needed Discontinued tizanidine 2 mg tablet 2 mg PO BID PRN (Reason: muscle spasms/leg cramps) 30 Days Qty: 60 1RF gabapentin 100 mg capsule 100 mg PO BID PRN (Reason: Pain) omeprazole 20 mg capsule,delayed release(DR/EC) 20 mg PO DAILY@0630,1630 PRN (Reason: heartburns) Discharge Orders: Discharge Order (Routine); Ordered 01/02/25 Ordered By: Sue Manriquez Diet: Low salt diet Activity on Discharge: As tolerated Stand Alone Forms: Patient Portal Discharge page Print Language: Serbian Care Plan Goals: Hold Amlodipine and monitor blood pressure for the next week before restarting if needed Continue Ciprofloxacin for 1 more week Stop Omeprazole, Start Pantoprazole Discontinue Gabapentin and Tizanidine Start Magnesium supplement daily Start Plavix on top of Aspirin and Eliquis [place] [facility] [place]. Marley for Right lower extremity angiogram and stent placement in 2 weeks Health Concerns: Urine infection Right lower extremity ischemia Plan of Treatment: Ciprofloxacin Plavix Vascular surgery follow up Assessment: as above
[2025-01-02 11:45] VITALS: BP 123/58; PULSE 92; RESP 19; TEMP 36.3; O2SAT 95
== END 2025-01-02 12:53 | disposition skilled nursing facility (03) | DRG 871 ==
LOC: HO.ED 13:37 → HO.EDOVER 21:13 → HO.ICU 22:06 → HO.IMC 12-29 08:52
PROVIDERS: Internal Medicine Pulmonary Disease; Nurse Practitioner Family; Physician Assistant; Physician Assistant Medical; Admitting Provider Nurse Practitioner Family; Emergency Provider Emergency Medicine Emergency Medical Services; PCP Internal Medicine; Visit Provider Student in an Organized Health Care Education/Training Program
DX: A41.9 Sepsis, unspecified organism (principal); I50.23 Acute on chronic systolic (congestive) heart failure; J96.01 Acute respiratory failure with hypoxia; R65.21 Severe sepsis with septic shock; I13.0 Hypertensive heart and chronic kidney disease with heart failure and stage 1 through stage 4 chronic kidney disease, or unspecified chronic kidney disease; J44.1 Chronic obstructive pulmonary disease with (acute) exacerbation; N39.0 Urinary tract infection, site not specified; I47.20 Ventricular tachycardia, unspecified; R68.0 Hypothermia, not associated with low environmental temperature; I73.9 Peripheral vascular disease, unspecified; I27.20 Pulmonary hypertension, unspecified; H70.11 Chronic mastoiditis, right ear; B96.5 Pseudomonas (aeruginosa) (mallei) (pseudomallei) as the cause of diseases classified elsewhere; I07.1 Rheumatic tricuspid insufficiency; I48.0 Paroxysmal atrial fibrillation; N18.30 Chronic kidney disease, stage 3 unspecified; I25.10 Atherosclerotic heart disease of native coronary artery without angina pectoris; F17.210 Nicotine dependence, cigarettes, uncomplicated; Z20.822 Contact with and (suspected) exposure to COVID-19; Z71.6 Tobacco abuse counseling; Z79.01 Long term (current) use of anticoagulants; Z79.899 Other long term (current) drug therapy
CPT/HCPCS: 0241U; 36415; 70450; 71045; 72125; 73562; 80048; 80053; 81001; 82040; 82140; 82550; 82803; 82947; 83605; 83690; 83735; 83880; 84100; 84484; 85025; 87040; 87086; 87088; 87186; 93005; 93306; 93926; 93971; 94640; 97163; 99285; J0456; J0696; J0744; J1120; J1160; J1171; J1938; J2270; J2470; J2919; J3010; J3475; J3480; P9047; Q9957

== ENCOUNTER → 2024-12-27 12:47 | Outpatient (BNV) | payer MEDICARE, MEDICAID, SELFPAY | PROVIDERS: Emergency Provider Emergency Medicine Emergency Medical Services; PCP Internal Medicine; Visit Provider Radiology Diagnostic Radiology | DX: I70.201 Unspecified atherosclerosis of native arteries of extremities, right leg (principal) | CPT/HCPCS: 70450; 71045; 72125; 73562; 93926 ==

== ENCOUNTER → 2024-12-27 12:47 | Outpatient (BNV) | payer MEDICARE, MEDICAID, SELFPAY | PROVIDERS: Admitting Provider Nurse Practitioner Family; Emergency Provider Emergency Medicine Emergency Medical Services; PCP Internal Medicine; Visit Provider Internal Medicine Cardiovascular Disease | DX: I48.91 Unspecified atrial fibrillation (principal) | CPT/HCPCS: 93010 ==

== ENCOUNTER 2024-12-27 21:05 | Outpatient (BNV) | payer MEDICARE, MEDICAID, SELFPAY | END 2024-12-28 10:10 | PROVIDERS: Admitting Provider Nurse Practitioner Family; Emergency Provider Emergency Medicine Emergency Medical Services; PCP Internal Medicine; Visit Provider Radiology Diagnostic Radiology | DX: R22.32 Localized swelling, mass and lump, left upper limb (principal) | CPT/HCPCS: 93971 ==

== ENCOUNTER 2024-12-27 21:05 | Outpatient (BNV) | payer MEDICARE, MEDICAID, SELFPAY | END 2025-01-01 07:58 | PROVIDERS: Admitting Provider Nurse Practitioner Family; Emergency Provider Emergency Medicine Emergency Medical Services; PCP Internal Medicine; Visit Provider Internal Medicine Cardiovascular Disease | DX: I48.91 Unspecified atrial fibrillation (principal) | CPT/HCPCS: 93010 ==

== ENCOUNTER 2024-12-27 21:05 | Outpatient (BNV) | payer MEDICARE, MEDICAID, SELFPAY | END 2024-12-30 10:45 | PROVIDERS: Admitting Provider Nurse Practitioner Family; Emergency Provider Emergency Medicine Emergency Medical Services; PCP Internal Medicine; Visit Provider Internal Medicine Cardiovascular Disease | DX: I50.9 Heart failure, unspecified (principal); I51.7 Cardiomegaly; I34.81 Nonrheumatic mitral (valve) annulus calcification; I36.1 Nonrheumatic tricuspid (valve) insufficiency | CPT/HCPCS: 93306 ==

== ENCOUNTER → 2024-12-27 21:05 | Outpatient (BNV) | payer MEDICARE, MEDICAID, SELFPAY | PROVIDERS: Admitting Provider Nurse Practitioner Family; Emergency Provider Emergency Medicine Emergency Medical Services; PCP Internal Medicine; Visit Provider Surgery Vascular Surgery | DX: I73.9 Peripheral vascular disease, unspecified (principal) | CPT/HCPCS: 99222; 99232 ==

== ENCOUNTER → 2024-12-27 21:05 | Outpatient (BNV) | payer MEDICARE, MEDICAID, SELFPAY | PROVIDERS: Admitting Provider Nurse Practitioner Family; Emergency Provider Emergency Medicine Emergency Medical Services; PCP Internal Medicine; Visit Provider Internal Medicine Pulmonary Disease | DX: I50.9 Heart failure, unspecified (principal); I48.91 Unspecified atrial fibrillation; N39.0 Urinary tract infection, site not specified; I73.9 Peripheral vascular disease, unspecified | CPT/HCPCS: 99232; 99291 ==

== ENCOUNTER → 2024-12-27 21:05 | Outpatient (BNV) | payer MEDICARE, MEDICAID, SELFPAY | PROVIDERS: Admitting Provider Nurse Practitioner Family; Emergency Provider Emergency Medicine Emergency Medical Services; PCP Internal Medicine; Visit Provider Internal Medicine | DX: A41.9 Sepsis, unspecified organism (principal); R65.21 Severe sepsis with septic shock; I50.23 Acute on chronic systolic (congestive) heart failure; I48.91 Unspecified atrial fibrillation | CPT/HCPCS: 99233; 99499 ==

== ENCOUNTER → 2024-12-27 21:05 | Outpatient (BNV) | payer MEDICARE, MEDICAID, SELFPAY | PROVIDERS: Admitting Provider Nurse Practitioner Family; Emergency Provider Emergency Medicine Emergency Medical Services; PCP Internal Medicine; Visit Provider Physician Assistant Medical | DX: J96.01 Acute respiratory failure with hypoxia (principal) | CPT/HCPCS: 99291; 99292 ==

== ENCOUNTER 2025-01-15 11:05 | Inpatient (IN) | payer MEDICARE, MEDICAID, SELFPAY ==
[2025-01-15] VITALS (17 sets, daily range): BP systolic 99–127; BP diastolic 36–56; PULSE 75–108; RESP 14–22; TEMP 36.4–36.6; O2SAT 96–100; BMI 27.7
--- NOTE | ~2025-01-15 | XR_ITS ---
EXAMINATION: XR CHEST 1 VIEW HISTORY: dyspnea COMPARISON: Comparison is made with the prior examination dated 12/27/2024. FINDINGS: A single AP portable view of the chest performed at 12:05 PM is submitted. There is prominence of the pulmonary vasculature, consistent with congestion. There are small bilateral pleural effusions. There is no pneumothorax. The heart remains enlarged. The bones are intact. XR/XR chest 1V IMPRESSION: Cardiomegaly, pulmonary vascular congestion, and small bilateral pleural effusions. Electronically signed by: Phan Arias MD 01/15/2025 12:22 PM EDT
--- NOTE | 2025-01-15 11:27 | ECG_ITS ---
Test Reason : ANEMIA Blood Pressure : */* mmHG Vent. Rate : 98 BPM Atrial Rate : * BPM P-R Int : * ms QRS Dur : 80 ms QT Int : 352 ms P-R-T Axes : * 74 -67 degrees QTcB Int : 449 ms Atrial fibrillation Nonspecific T wave abnormality Abnormal ECG When compared with ECG of 01-Jan-2025 07:58, T wave inversion no longer evident in Anterior leads Referred By: Leydi Azar Electronically Signed By: ESTHER FUENTES MD
[2025-01-15 11:39] LABS: MANUAL DIFF FLAG NO
[2025-01-15 11:42] LABS: Basophils Absolute Auto 0.1 X10*3/uL (0.0-0.2); Basophils Percent Auto 0.6 % (0-2); Eosinophils Absolute Auto 0.1 X10*3/uL (0.0-0.4); Imm Gran Pct Auto 0.9 % (0.0-0.4); Lymphocytes Absolute Auto 1.5 X10*3/uL (1.2-4.9); Lymphocytes Percent Auto 14.4 % (20-40); Mean Corpuscular HGB Conc 26.9 g/dl (31.0-35.0); Mean Corpuscular Hemoglobin 20.9 pg (27.0-33.0); Mean Corpuscular Volume 77.9 fL (80.0-98.0); Mean Platelet Volume 10.9 fL (9.4-12.3); Monocytes Absolute Auto 0.7 X10*3/uL (0.1-1.2); Monocytes Percent Auto 6.9 % (2-11); Neutrophils Absolute Auto 8.1 x10*3/uL (2.0-8.3); Neutrophils Percent Auto 76.2 % (45-73); Platelet Count 448 X10*3/uL (160-400); Red Blood Count 2.53 X10*6/uL (4.20-5.50); Red Cell Distribution Width 21.9 % (11.0-16.0); White Blood Count 10.6 X10*3/uL (4.8-10.8)
--- NOTE | 2025-01-15 11:42 | ED_ITS ---
HPI - Recheck/Abnormal Lab/Rx General Chief Complaint: Recheck/Abnormal Lab/Rx Stated Complaint: ABNORMAL LABS PER EMS Time Seen by Provider: 01/15/25 11:08 Source: patient, EMS and old records reviewed Mode of arrival: EMS Limitations: no limitations History of Present Illness ED Provider: BITA MERCADO narrative: 89 yo female with PMH of COPD on 2L NC, afib on eliquis 2.5mg BID and 81mg aspirin daily, cardiorenal syndrome and CHF with EF 40%, HTN, Fe deficiency anemia, DNR/DNI just seen and treated here for UTI with septic shock, hypokalemia, CHF treated with lasix gtt she was admitted here 12/27 to 01/02 and has been at [facility]. She comes in today with no complaints she denies dizziness, abdominal pain, chest pain, dyspnea. She denies seeing any black or blood stools. Routine labs done and hemoglobin 4.8 and hct 18.4. On arrival she is mildly tachycardic MD complaint: abnormal lab Initial visit (ago): day(s) (today) Returns today for: called because of abnormal lab/test Description of abnormal result: anemia Symptoms since prior visit: no new symptoms Context: called for abnormal lab result Associated symptoms: none Related Data Home Medications ?Medication ?Instructions ?Recorded ?Confirmed brimonidine 0.2 % eye drops 1 drp ophthalmic (eye) TID macular 04/17/23 12/28/24 degeneration aspirin 81 mg capsule 81 mg PO DAILY 07/30/24 12/28/24 fesoterodine 4 mg tablet,extended 4 mg PO DAILY PRN Overactive 08/27/24 12/28/24 release 24 hr Bladder rosuvastatin 20 mg tablet 20 mg PO BEDTIME 08/27/24 12/28/24 acetaminophen 650 mg 650 mg PO Q8H PRN Pain 12/28/24 12/28/24 tablet,extended release Previous Rx's ?Medication ?Instructions ?Recorded RECLINER LIFT CHAIR #1 ea 07/26/20 Raised [place] Seat with handels #1 ea 02/08/22 ROLLATOR #1 ea 10/23/22 blood pressure monitor (Blood #1 ea 10/23/22 Pressure Kit) Orthpedic Shoes #1 ea 04/12/23 diaper,brief,adult,disposable #68 ea 04/02/24 (Depend Underwear For Women XL) adult pull ups/ Extra large #1 ea 04/24/24 wipes #5 ea 06/18/24 Portable ramp #1 ea 10/21/24 wheel chair #1 ea 10/21/24 apixaban 2.5 mg tablet 2.5 mg PO BID #60 tabs 10/27/24 metoprolol succinate 25 mg 25 mg PO BID #60 tabs 11/06/24 tablet,extended release 24 hr amlodipine 10 mg tablet 10 mg PO DAILY #90 tabs 11/09/24 potassium chloride 20 mEq 20 meq PO DAILY 90 days #90 tabs 11/10/24 tablet,extended release(part/cryst) diclofenac sodium 1 % topical gel 4 g topical QID PRN for pain #100 12/14/24 grams furosemide 40 mg tablet 40 mg PO DAILY #30 tabs 12/22/24 ciprofloxacin HCl 250 mg tablet 250 mg PO BID #14 tabs 01/02/25 clopidogrel 75 mg tablet 75 mg PO DAILY #90 tabs 01/02/25 magnesium oxide 400 mg (241.3 mg 400 mg PO DAILY #90 tabs 01/02/25 magnesium) tablet pantoprazole 40 mg tablet,delayed 40 mg PO DAILY #90 tabs 01/02/25 release vibegron 75 mg tablet (Gemtesa) 75 mg PO DAILY #90 tabs 01/06/25 Allergies Allergy/AdvReac Type Severity Reaction Status Date / Time atorvastatin AdvReac Intermediate myalgias Verified 01/15/25 11:17 Review of Systems 2 Review of Systems: Constitutional : No Fever, No Chills, No Fatigue ENT/Mouth : No sore throat, No Rhinorrhea Eyes: No Eye Pain, No Swelling, No Redness Cardiovascular : No Chest Pain, No SOB, No Dyspnea on Exertion Respiratory : No Cough, No Sputum Gastrointestinal : No Nausea, No Vomiting, No Diarrhea, No abdominal Pain Genitourinary : No Dysuria, No Urinary Frequency, No Hematuria, Musculoskeletal : No joint pain, No Myalgias, No Joint Swelling Skin : No Skin Lesions, No rash Neuro : No Weakness, No Numbness, No Dizziness, no Headache Psych : No Anxiety/Panic, No Depression All other systems reviewed and are negative PMFSH Past Medical History Attestation statement: The following information was validated with the patient. Source: old records reviewed Medical History PAD (peripheral artery disease) CHF (congestive heart failure) Falls Congestive heart failure Afib Macular degeneration Overweight (BMI 25.0-29.9) COVID-19 vaccine administered History of COVID-19 Restrictive lung disease Edema Current smoker Iron deficiency anemia Tobacco abuse Carotid bruit Obesity (BMI 30-39.9) Depression Insomnia Allergic rhinitis Elevated TSH GERD without esophagitis Impaired fasting glucose Anemia Knee osteoarthritis Vitamin D deficiency Chronic kidney disease (CKD), stage III (moderate) Pure hypercholesterolemia Benign essential hypertension Coronary artery disease Surgical History Hx of total knee arthroplasty Hx of colonoscopy Hx of cardiac cath Hx of bilateral cataract extraction History of hysterectomy Family History Family History Father Medical history unknown Mother CVD (cardiovascular disease) Social History Social History Household Members: Other Household Members Other:: Daughter and grandson Housing: Apartment Are you a primary care tech to a significant other at home: No Do you presently have visiting nurse or other home services: Yes (elder care) Unable to assess alcohol history related to: Unknown Alcohol intake: never Comment: aware of trip hazard Patient Tobacco Use Status: Current everyday Tobacco user Tobacco use type: Cigarette Cigarette Packs Per Day: 1 Cigarettes Per Day: 20.0 Years Smoked: 70 Smoked in Last 30 Days: No e-Cigarette/Vaping Use: Never Used Second Hand Smoke Exposure: Yes Use of substances other than those prescribed or required for medical reasons: No service: No Current occupational status: retired and disabled Cognitive needs: No (cane/walker) Hearing needs: No Vision needs: No Physical Exam 2 Vital Signs: Vital Signs: Last Vital Signs Temp 97.8 F 01/15/25 11:49 Pulse 108 H 01/15/25 11:49 Resp 16 01/15/25 11:49 BP 99/47 L 01/15/25 11:49 O2 Del Method Nasal Cannula 01/15/25 11:49 Oxygen Flow Rate 2 01/15/25 11:16 BMI result Body Mass Index 27.7 Appearance: Alert. Oriented X2.5 slight confusion on time but then corrected. No acute distress. Eyes: Pupils equal, round and reactive to light. ENT: Pharynx normal. Neck: Normal inspection. Neck supple. CVS: irregular heart rate and rhythm. Pulses normal. Respiratory: No respiratory distress. Breath sounds normal. Abdomen: Soft and nontender. Rectal: light brown stool Back: no trauma noted Skin: Skin warm and dry. pale skin color. Extremities: No lower extremity edema. Neuro: Oriented X 2.5. No motor deficit. No sensory deficit. CN2-12 intact Course Course Course Narrative: suspect NEEL, elevated liver enzymes, low BPs and tachycardia due to acute blood loss anemia and not infection or severe sepsis [id number] Medical Decision Making Medical Decision Making [facility] Narrative: 89 yo female with PMH of COPD on 2L NC, afib on eliquis 2.5mg BID and 81mg aspirin daily, cardiorenal syndrome and CHF with EF 40%, HTN, Fe deficiency anemia, DNR/DNI with recent septic shock, CHF admission 12/27- 01/02 now back again with routine labs finding severe anemia. The patient denies any complaints. Her abdomen is benign, no hematuria and no signs of GIB currently. She will get labs, CXR, baseline bnp and start with 2 UPRBCs plan to admit for further management once blood started. baseline hemoglobin looks to be around 9.4 Differential Diagnosis Differential Diagnoses: The differential diagnosis associated with the presentation includes acute on chronic anemia, GIB bleed, NEEL Admission/Observation Consideration of admission/observation: Escalation of care including admission/observation considered admit for transfusion and further work up Consult Healthcare Provider Management of the patient was discussed with: Hospitalist and Director Educational Radio (Dr. Rodas aware will follow ) Lab Data [facility] Lab Attestation statement: I reviewed the patient's lab results. 01/15/25 11:33 01/15/25 11:33 Labs: Lab Results 01/15/25 01/15/25 Range/Units 11:33 11:37 WBC 10.6 (4.8-10.8) X10*3/uL RBC 2.53 L D (4.20-5.50) X10*6/uL Hgb 5.3 L* D (12.0-16.0) g/dl Hct 19.7 L* D (37.0-47.0) % MCV 77.9 L (80.0-98.0) fL MCH 20.9 L (27.0-33.0) pg MCHC 26.9 L (31.0-35.0) g/dl RDW 21.9 H (11.0-16.0) % Plt Count 448 H D (160-400) X10*3/uL MPV 10.9 (9.4-12.3) fL Immature Gran % (Auto) 0.9 H (0.0-0.4) % Neut % (Auto) 76.2 H (45-73) % Lymph % (Auto) 14.4 L (20-40) % [place] % (Auto) 6.9 (2-11) % Eos % (Auto) 1.0 (0-4) % Baso % (Auto) 0.6 (0-2) % Lymph # (Auto) 1.5 (1.2-4.9) X10*3/uL [place] # (Auto) 0.7 (0.1-1.2) X10*3/uL Eos # (Auto) 0.1 (0.0-0.4) X10*3/uL Baso # (Auto) 0.1 (0.0-0.2) X10*3/uL Abs Immat Gran (auto) 0.10 H (0.00-0.03) X10*3/uL Absolute Neuts (auto) 8.1 (2.0-8.3) x10*3/uL Absolute Nucleated RBC 0.420 H (0.0-0.012) X10*3/uL Nucleated RBC % (auto) 4.0 H (0.0-0.2) /100WBC PT 23.2 H D (10.9-12.4) SEC INR 2.0 H (0.9-1.1) Sodium 136 (135-145) mmol/L Potassium 5.2 H D (3.3-5.1) mmol/L Chloride 107 (96-108) mmol/L Carbon Dioxide 20 L (22-29) mmol/L Anion Gap 14 (12-20) BUN 61 H (9-16) mg/dL Creatinine 2.95 H (0.5-1.4) mg/dL Estim Creat Clear Calc 11.7 Estimated GFR 15 Random Glucose 138 H (60-115) mg/dL Calcium 9.1 (8.4-10.2) mg/dL Magnesium 2.4 (1.6-2.6) mg/dL Total Bilirubin 0.8 (0.0-1.0) mg/dL Direct Bilirubin 0.3 (0.0-0.5) mg/dL AST 176 H (5-31) U/L ALT 167 H (0-31) U/L Alkaline Phosphatase 110 (39-117) U/L Total Protein 6.6 (6.5-8.0) g/dL Albumin 3.3 L (3.5-5.0) g/dL Lipase 28 (8-78) U/L Urine Color Yellow Urine Appearance Cloudy Urine pH 5.5 (5.0-9.0) Ur Specific [place] 1.015 (1.005-1.025) Urine Protein 300 (3+) H (Neg-Trace) mg/dL Urine Glucose (UA) Negative (Negative) mg/dL Urine Ketones Negative (Negative) mg/dL Urine Blood Moderate (2+) H (Negative) Urine Nitrite Negative (Negative) Ur Leukocyte Esterase Moderate (2+) H (Negative) Stool Occult Blood POSITIVE (NEGATIVE) Independent Interpretation I performed an independent interpretation of an: EKG and Plain X-Ray Interpretation: Rate: 98 Rhythm: afib [place]: normal Normal QRS complex. ST T wave : no JRAVIS, nonspecific ST T wave changes inf lateral leads qTC: 449 prior studies: no acute ischemia The study has been interpreted contemporaneously by me. . Radiology Impression Discussion of test interpretation with radiology: I have reviewed the radiologist's reading. Independent Historian Clinical information obtained from an independent historian. History obtained from or confirmed by: EMS External Record Review External record reviewed: Inpatient record and Outpatient record Critical Care Time Critical Care Time Critical Care Time: Yes Total Critical Care Time: 60 Attestation: Time is exclusive of separately billable procedures. Time includes: direct patient care, patient reassessment, coordination of patient care, interpretation of data (laboratory data, pulse oximetry, arterial blood gases and chest xrays), review of patient's medical records, medical consultation and documentation of patient care. transfusion of blood products. Procedures excluded from critical care time: electrocardiography. I attest to this time spent taking care of the patient Discharge Plan Discharge Clinical Impression: Acute on chronic anemia, NEEL (acute kidney injury) Patient Disposition: Admitted As Inpatient Print Language: German
[2025-01-15 11:49] LABS: Prothrombin Time 23.2 SEC (10.9-12.4)
--- NOTE | 2025-01-15 11:53 | PC.NURSE ---
PAtient A&O x 4. Patient SAMISH. Presents to ED from [facility] r/t abnormal labs HGB 4.8 and HCT 18.4. Patient denies SOB, dizziness, bleeding disorders, denies hematuria/ hematochezia. 20G in left AC 18G in right AC. Patient slightly hypotensive at 99/47 all other VSS. Denies pain. Blood collected/sent. Urine collected/sent. Plan of care on going
[2025-01-15 11:58] LABS: Alanine Aminotransferase 167 U/L (0-31); Albumin Level 3.3 g/dL (3.5-5.0); Alkaline Phosphatase 110 U/L (39-117); Anion Gap 14 (12-20); Aspartate Amino Transferase 176 U/L (5-31); Bilirubin Direct 0.3 mg/dL (0.0-0.5); Bilirubin Total 0.8 mg/dL (0.0-1.0); Blood Urea Nitrogen 61 mg/dL (9-16); Calcium 9.1 mg/dL (8.4-10.2); Carbon Dioxide 20 mmol/L (22-29); Chloride 107 mmol/L (96-108); Creatinine Clr Calc Pharmacy 11.7; Estimated Glomerular Filt Rate 15; Glucose Random 138 mg/dL (60-115); Lipase 28 U/L (8-78); Magnesium 2.4 mg/dL (1.6-2.6); Potassium 5.2 mmol/L (3.3-5.1); Sodium 136 mmol/L (135-145); Total Protein 6.6 g/dL (6.5-8.0)
[2025-01-15 11:59] LABS: Hemoglobin 5.3 g/dl (12.0-16.0)
[2025-01-15 11:59] LABS: OBS Int Ctl Valid YES; OBS1 POSITIVE (NEGATIVE)
[2025-01-15 12:00] LABS: Hematocrit 19.7 % (37.0-47.0)
[2025-01-15 12:02] LABS: Appearance Urine Cloudy; Color Urine Yellow; Glucose Urine UA Negative (Negative); Leukocyte Esterase Urine Moderate (2+) (Negative); Nitrite Urine Negative (Negative); PH 5.5 (5.0-9.0); Specific Gravity - Urine 1.015 (1.005-1.025); UMIC TRIGGER UACC YES; Urine Blood Moderate (2+) (Negative); Urine Ketones Negative (Negative); Urine Protein 300 (3+) mg/dL (Neg-Trace)
[2025-01-15 12:10] LABS: Bacteria Urine 1+ (None Seen); Squamous Epithelial Cell Urine 0-2 /HPF (0-2); UACC Culture Trigger YES
[2025-01-15 12:29] LABS: B Type Natriuretic Peptide 901 pg/mL (<100)
--- OUTSIDE RECORDS SUMMARY | 2025-01-15 12:56 | XMS_ITS | Clinical Summary ---
Author Organization [employer] Address [address] [place] [address] Care Team Providers Care [employer] Person Name Role Phone Unavailable Primary Care Provider [...] patient's age to complete this topic Meningococcal B Vaccine Aged Out No l onger eligible based on patient's age to complete [...] Relevant to Health Maintenance Insurance DENTAL - N FULL (MEDICAID) [facility] MEDICAID STAND ADULT
--- NOTE | 2025-01-15 13:50 | PC.NURSE ---
Blood product verified and started. VSS and up to date, lung sounds auscultated and clear bilaterally.
--- NOTE | 2025-01-15 14:03 | PC.NURSE ---
15 minute check completed. VSS lungs auscultated and clear bilaterally. Completed related to blood transfusion
--- NOTE | 2025-01-15 14:14 | P.HPHOSP_ITS ---
History of Present Illness Date of Service: 01/15/25 Chief Complaint: Medical H and P 89-year-old female with past medical history of oxygen-dependent COPD, 2 L at baseline history of AFib on Eliquis and aspirin daily, history of cardiorenal syndrome, congestive heart failure with the EF of 40%, hypertension, iron deficiency anemia was sent to the ED after routine labwork demonstrated hemoglobin of 4.8. Patient is very hard of hearing Patient was recently admitted from December 27 through the with urosepsis and CHF exacerbation. She is currently a patient at [facility]. On admission to the ER she was found to have a repeat hemoglobin of 5.3, BUN creatinine elevated from baseline of 1-1.2, and transaminitis. GI was consulted, Dr. Rodas to follow. An EKG demonstrates known AFib, no evidence of ischemic changes. Chest x-ray demonstrates cardiomegaly, pulmonary vascular congestion and small bilateral pleural effusions. On exam she is awake and alert, denies any discomfort, shortness of breath, chest pain, dizziness or any other concerning symptoms. Patient is here in the ED, 1st unit of blood infusing. Review of Systems 2 Review of Systems: Denies any shortness of breath, chest pain, dizziness, lightheadedness, abdominal pain or discomfort, nausea vomiting or diarrhea PMFSH Medical History PAD (peripheral artery disease) CHF (congestive heart failure) Falls Congestive heart failure Afib Macular degeneration Overweight (BMI 25.0-29.9) COVID-19 vaccine administered History of COVID-19 Restrictive lung disease Edema Current smoker Iron deficiency anemia Tobacco abuse Carotid bruit Obesity (BMI 30-39.9) Depression Insomnia Allergic rhinitis Elevated TSH GERD without esophagitis Impaired fasting glucose Anemia Knee osteoarthritis Vitamin D deficiency Chronic kidney disease (CKD), stage III (moderate) Pure hypercholesterolemia Benign essential hypertension Coronary artery disease Family History Father Medical history unknown Mother CVD (cardiovascular disease) Surgical History Hx of total knee arthroplasty Hx of colonoscopy Hx of cardiac cath Hx of bilateral cataract extraction History of hysterectomy Social History Household Members: Other Household Members Other:: Daughter and grandson Housing: Apartment Are you a primary workforce investment act career manager to a significant other at home: No Do you presently have visiting nurse or other home services: Yes (elder care) Unable to assess alcohol history related to: Unknown Alcohol intake: never Comment: aware of trip hazard Patient Tobacco Use Status: Tobacco use Unknown Tobacco use type: Cigarette Cigarette Packs Per Day: 1 Cigarettes Per Day: 20.0 Years Smoked: 70 Smoked in Last 30 Days: No e-Cigarette/Vaping Use: Never Used Second Hand Smoke Exposure: Yes Use of substances other than those prescribed or required for medical reasons: No Advance Directives: No Advance Directives Information Provided: Yes Nutrition Risks: No Nutritional Risk service: No Current occupational status: retired and disabled Cognitive needs: No (cane/walker) Hearing needs: No Vision needs: No Meds Allergies Allergy/AdvReac Type Severity Reaction Status Date / Time atorvastatin AdvReac Intermediate myalgias Verified 01/15/25 11:17 Home Medications ?Medication ?Instructions ?Recorded ?Confirmed ?Last Taken ?Type brimonidine 0.2 % eye drops 1 drp ophthalmic (eye) TID macular 04/17/23 01/15/25 Unknown History degeneration aspirin 81 mg capsule 81 mg PO DAILY 07/30/24 01/15/25 1 Day Ago History ~12/27/24 rosuvastatin 20 mg tablet 20 mg PO BEDTIME 08/27/24 01/15/25 1 Day Ago History ~12/27/24 acetaminophen 325 mg tablet 975 mg PO TID 01/15/25 01/15/25 Unknown History magnesium hydroxide 400 mg/5 mL 30 ml PO DAILY PRN Constipation 01/15/25 01/15/25 Unknown History oral suspension (Milk of Magnesia) pantoprazole 40 mg tablet,delayed 40 mg PO DAILY@199901/15/25 01/15/25 Unknown History release sodium phosphates 19 gram-7 118 ml [place] DAILY PRN Constipation 01/15/25 01/15/25 Unknown History gram/118 mL enema (Fleet Enema) Physical Exam 2 Vital Signs and Narrative: Vital Signs: Last Vital Signs Temp 97.7 F 01/15/25 14:01 Pulse 84 01/15/25 14:01 Resp 18 01/15/25 14:01 BP 119/46 L 01/15/25 14:01 Pulse Ox 100 01/15/25 13:28 O2 Del Method Room Air 01/15/25 13:28 Oxygen Flow Rate 2 01/15/25 11:16 BMI result Body Mass Index 27.7 CONST: Alert and oriented to self and place, in NAD. Well nourished HEENT: Normocephalic, atraumatic, MMM, Eyes clear, Neck supple, Pale RESP: Lungs clear, RRR even and regular HEART:,RRR, S1, S2. no edema GI:Abdomen Soft NT, ND. + BS times four. No tenderness to palpation :FC in place, no hematuria SKIN: Warm dry and intact, Coccyx red, Right foot with scabbed areas, Extremities cool NEURO:CN II-XII Intact bilaterally, Sensation intact. Speech clear PSYCH: Normal affect, [place] Results Labs 01/16/25 06:24 01/16/25 06:24 Labs: Laboratory Results - last 24 hr 01/15/25 01/15/25 11:33 11:37 MCV 77.9 L MCH 20.9 L MCHC 26.9 L RDW 21.9 H Plt Count 448 H D MPV 10.9 Immature Gran % (Auto) 0.9 H Neut % (Auto) 76.2 H Lymph % (Auto) 14.4 L Nicholas % (Auto) 6.9 Eos % (Auto) 1.0 Baso % (Auto) 0.6 Lymph # (Auto) 1.5 Nicholas # (Auto) 0.7 Eos # (Auto) 0.1 Baso # (Auto) 0.1 Abs Immat Gran (auto) 0.10 H Absolute Neuts (auto) 8.1 Absolute Nucleated RBC 0.420 H Nucleated RBC % (auto) 4.0 H PT 23.2 H D INR 2.0 H Anion Gap 14 Estim Creat Clear Calc 11.7 Estimated GFR 15 Random Glucose 138 H Calcium 9.1 Magnesium 2.4 Total Bilirubin 0.8 Direct Bilirubin 0.3 AST 176 H ALT 167 H Alkaline Phosphatase 110 B-Natriuretic Peptide 901 H Total Protein 6.6 Albumin 3.3 L Lipase 28 Urine Color Yellow Urine Appearance Cloudy Urine pH 5.5 Ur Specific [place] 1.015 Urine Protein 300 (3+) H Urine Glucose (UA) Negative Urine Ketones Negative Urine Blood Moderate (2+) H Urine Nitrite Negative Ur Leukocyte Esterase Moderate (2+) H Urine RBC 3-5 H Urine WBC 6-10 Ur Squamous Epith Cells 0-2 Urine Bacteria 1+ Hyaline Casts 3-5 Urine Yeast Present Stool Occult Blood POSITIVE Blood Type A Positive Antibody Screen NEGATIVE Crossmatch See Detail Imaging Radiologist's Impressions: Impressions Chest X-Ray 01/15/25 11:27 IMPRESSION: Cardiomegaly, pulmonary vascular congestion, and small bilateral pleural effusions. Electronically signed by: Phan Arias MD 01/15/2025 12:22 PM EDT RP Assessment and Plan (1) Acute blood loss anemia: Status: Acute Plan 89-year-old female with a past medical history of COPD, AFib on Eliquis, cardiorenal syndrome, CHF, was sent from her senior living when routine blood work discovered that she had severe anemia with a hemoglobin of 4.8. She will be admitted for further management of acute blood loss anemia. Acute blood loss anemia/suspected GI bleed Patient was sent from the senior living after routine blood work revealed a hemoglobin of 4.8, repeated in the ED noted to be 5.3. Positive stool for guaiac in the ED consulted and is aware, will see patient 2 units of packed red blood cells ordered, patient at risk for TACO so we will receive Lasix 20 mg in between units Patient with a history of AFib on Eliquis and aspirin. Hold all anticoagulants. We will check a hemoglobin at 21:00 after patient receives 2 units of blood and again in the a.m.. Acute kidney injury/Cardiorenal syndrome in the setting of GI bleeding Patient's creatinine elevated to 2.95 from baseline of 1-1.2. Suspected due to decreased perfusion as a result of acute blood loss anemia Hold Lasix for now Mild hyperkalemia 5.2 most likely due to hemolyzed specimen Will repeat in am Heart failure with Reduced EF 40% BNP 901 consistent with recent BMP Does not appear to be fluid overloaded on exam Chest x-ray demonstrates cardiomegaly, pulmonary vascular congestion and small bilateral pleural effusions, consistent with priors Lasix in between units of blood due to increased risk for TACO Lasix 40 mg on hold due to NEEL, labs will be repeated in a.m. Resume Lasix as blood pressure and clinical status improves Transaminitis AST 176/ALT 167. Significantly elevated from baseline Suspect this is due to decreased perfusion as result of acute blood loss anemia We will follow labs COPD with baseline oxygen requirements of 2 L a minute Stable does not appear to be in acute exacerbation Urinary retention Chronic Fajardo on admission OAB meds on hold Hypertension/hyperlipidemia Home amlodipine and rosuvastatin on hold Resume when clinically appropriate. VTE Prophylaxis: Compression CODE STATUS: DNR/DNI Quality Stroke Does the patient have a stroke diagnosis?: No VTE Prior VTE?: No VTE Risk Level:: Medical - moderate - high VTE Device Contraindication: N/A - Device Ordered VTE Drug Contraindication: Treatment Not Indicated
--- NOTE | 2025-01-15 15:25 | PHA.MEDREC ---
Addendum entered by Jenaro Adan [facility] 01/15/25 15:56: med rec reviewed Original Note: Pharmacy Consult ? Medication Reconciliation Pharmacy has completed the medication reconciliation. Utilized list from [facility] to confirm med list. Amlodipine 10 mg was not on med list however there are claims for. Called [facility] and they confirmed, patient is taking amlodipine 10 mg , last dose was today.
[2025-01-15] MEDS: Pantoprazole Sodium 40 MG/10 ML VIAL IVPUSH (16:06)
[2025-01-15] MEDS: Furosemide 20 MG/2 ML VIAL IVPUSH (17:38)
--- NOTE | 2025-01-15 17:51 | PC.NURSE ---
first bagof blood completed. VSS, Lung sounds ascultated, clear bilaterally.
--- NOTE | 2025-01-15 19:08 | PC.NURSE ---
Bag 2 currently infusion, 15 minute check completed. VSS lungs auscultated and clear bilaterally. Completed related to blood transfusion
[2025-01-15] MEDS: Docusate Sodium 100 MG CAPSULE PO (23:07)
[2025-01-15] MEDS: Brimonidine Tartrate 0.2% Oph 5 ML BOTTLE 1 DROP EYE-BOTH (23:07)
[2025-01-15 23:47] LABS: MANUAL DIFF FLAG NO
[2025-01-16] VITALS (13 sets, daily range): BP systolic 97–126; BP diastolic 33–60; PULSE 80–94; RESP 14–20; TEMP 36.3–37.1; O2SAT 98–99; BMI 28.8
[2025-01-16 00:02] LABS: Basophils Absolute Auto 0.1 X10*3/uL (0.0-0.2); Basophils Percent Auto 0.4 % (0-2); Eosinophils Absolute Auto 0.2 X10*3/uL (0.0-0.4); Eosinophils Percent Auto 1.4 % (0-4); Hematocrit 26.8 % (37.0-47.0); Imm Gran Pct Auto 0.9 % (0.0-0.4); Lymphocytes Absolute Auto 1.6 X10*3/uL (1.2-4.9); Lymphocytes Percent Auto 13.4 % (20-40); Mean Corpuscular HGB Conc 29.9 g/dl (31.0-35.0); Mean Corpuscular Hemoglobin 23.5 pg (27.0-33.0); Mean Corpuscular Volume 78.8 fL (80.0-98.0); Mean Platelet Volume 10.4 fL (9.4-12.3); Monocytes Absolute Auto 0.9 X10*3/uL (0.1-1.2); Monocytes Percent Auto 7.7 % (2-11); NRBC Pct Auto 3.2 /100WBC (0.0-0.2); Neutrophils Percent Auto 76.2 % (45-73); Platelet Count 407 X10*3/uL (160-400); White Blood Count 11.8 X10*3/uL (4.8-10.8)
[2025-01-16] MEDS: Pantoprazole Sodium 40 MG/10 ML VIAL IVPUSH ×2 (06:42→16:02)
[2025-01-16 06:45] LABS: MANUAL DIFF FLAG NO
[2025-01-16 06:48] LABS: Basophils Absolute Auto 0.1 X10*3/uL (0.0-0.2); Basophils Percent Auto 0.5 % (0-2); Eosinophils Absolute Auto 0.2 X10*3/uL (0.0-0.4); Eosinophils Percent Auto 1.7 % (0-4); Hematocrit 24.7 % (37.0-47.0); Hemoglobin 7.3 g/dl (12.0-16.0); Imm Gran Abs Auto 0.08 X10*3/uL (0.00-0.03); Imm Gran Pct Auto 0.9 % (0.0-0.4); Lymphocytes Absolute Auto 1.1 X10*3/uL (1.2-4.9); Mean Corpuscular HGB Conc 29.6 g/dl (31.0-35.0); Mean Corpuscular Hemoglobin 23.5 pg (27.0-33.0); Mean Corpuscular Volume 79.4 fL (80.0-98.0); Mean Platelet Volume 10.3 fL (9.4-12.3); Monocytes Absolute Auto 0.6 X10*3/uL (0.1-1.2); Monocytes Percent Auto 6.6 % (2-11); Neutrophils Absolute Auto 7.3 x10*3/uL (2.0-8.3); Neutrophils Percent Auto 78.3 % (45-73); Platelet Count 375 X10*3/uL (160-400); Red Blood Count 3.11 X10*6/uL (4.20-5.50); Red Cell Distribution Width 19.3 % (11.0-16.0); White Blood Count 9.4 X10*3/uL (4.8-10.8)
[2025-01-16 06:53] LABS: NRBC Pct Auto 4.5 /100WBC (0.0-0.2)
[2025-01-16 07:15] LABS: Alanine Aminotransferase 104 U/L (0-31); Albumin Level 2.8 g/dL (3.5-5.0); Alkaline Phosphatase 87 U/L (39-117); Anion Gap 12 (12-20); Aspartate Amino Transferase 85 U/L (5-31); Bilirubin Total 2.5 mg/dL (0.0-1.0); Blood Urea Nitrogen 57 mg/dL (9-16); Calcium 8.9 mg/dL (8.4-10.2); Carbon Dioxide 23 mmol/L (22-29); Chloride 108 mmol/L (96-108); Creatinine Clr Calc Pharmacy 12.2; Estimated Glomerular Filt Rate 16; Glucose Random 106 mg/dL (60-115); Potassium 3.9 mmol/L (3.3-5.1); Sodium 139 mmol/L (135-145); Total Protein 5.6 g/dL (6.5-8.0)
[2025-01-16 07:45] LABS: B Type Natriuretic Peptide 905 pg/mL (<100)
[2025-01-16] MEDS: Docusate Sodium 100 MG CAPSULE PO (08:38)
[2025-01-16] MEDS: Magnesium Oxide 400 MG TABLET PO (08:38)
[2025-01-16] MEDS: Metoprolol Succinate ER 25 MG TAB.ER.24H PO (08:38)
[2025-01-16] MEDS: Brimonidine Tartrate 0.2% Oph 5 ML BOTTLE 1 DROP EYE-BOTH ×3 (08:38→21:13)
[2025-01-16 08:53] LABS: Immature Retic Fraction 7.4 % (3.0-15.9); Reticulocytes Absolute 0.044 X10*6/uL (0.026-0.095)
[2025-01-16 08:54] LABS: Reticulocyte Percent 1.4 % (0.5-1.8)
[2025-01-16 09:09] LABS: Iron 85 mcg/dL (30-160); Percent Iron Saturation 29 % (15-50); Total Iron Binding Capacity 292 mcg/dL (228-428); Unsaturated Iron Binding 207 ug/dL
[2025-01-16 09:23] LABS: Ferritin 28 ng/mL (10-250)
--- NOTE | 2025-01-16 10:07 | PC.NURSE ---
Assumed care of pt approx 0700, resting comfortably in bed with no apparent s/s of distress. VSS, a-fib on monitor. Took meds whole with water. Respirations even and unlabored, on room air. Fajardo cath in place draining CYU. #20 IV to bilat AC. Infusing 1 unit blood, tolerating well.
--- NOTE | 2025-01-16 10:08 | P.CNGI_ITS ---
History of Present Illness Data of Consult Service Date: 01/16/25 Requesting physician: Belkis Meyer Primary Care Provider: Irving Meneses MD HPI Reason for consult: anemia, positive stool occult blood 89 YF with history of oxygen-dependent COPD, 2 L at baseline history of AFib on Eliquis and aspirin daily, history of cardiorenal syndrome, congestive heart failure with the EF of 40%, hypertension, iron deficiency anemia seen at [facility] on 01/15/25 after routine labwork demonstrated hemoglobin of 4.8. Patient complains of intermittent constipation and denies symptoms of heartburn, dysphagia, melena or hematochezia. She denies recent change in appetite or weight. Patient denies having an upper endoscopy or colonoscopy in the past. Patient has a history of smoking in the past and denies EtOH abuse. Patient was recently admitted from December 27 through the with urosepsis and CHF exacerbation. Patient has some demetia (per her son) and is very hard of hearing and is currently a patient at [facility]. On admission to the ER she was found to have a repeat hemoglobin of 5.3, BUN creatinine elevated from baseline of 1-1.2, and transaminitis. An EKG demonstrates known AFib, no evidence of ischemic changes. Chest x-ray demonstrates cardiomegaly, pulmonary vascular congestion and small bilateral pleural effusions. Patient was transfused 3 U of PRBCs overnight and repeat H & H is 8 & 26.8 post transfusion. Repeat labs today showed H & H of 8.4 and 28 Review of Systems 2 Review of Systems: Yes all other systems are reviewed and are negative [facility] Past Medical History Medical History PAD (peripheral artery disease) CHF (congestive heart failure) Falls Congestive heart failure Afib Macular degeneration Overweight (BMI 25.0-29.9) COVID-19 vaccine administered History of COVID-19 Restrictive lung disease Edema Current smoker Iron deficiency anemia Tobacco abuse Carotid bruit Obesity (BMI 30-39.9) Depression Insomnia Allergic rhinitis Elevated TSH GERD without esophagitis Impaired fasting glucose Anemia Knee osteoarthritis Vitamin D deficiency Chronic kidney disease (CKD), stage III (moderate) Pure hypercholesterolemia Benign essential hypertension Coronary artery disease Family History Family History Father Medical history unknown Mother CVD (cardiovascular disease) Surgical History Surgical History Hx of total knee arthroplasty Hx of colonoscopy Hx of cardiac cath Hx of bilateral cataract extraction History of hysterectomy Social History Social History Household Members: Other Household Members Other:: Daughter and grandson Housing: Apartment Are you a primary youth care specialist to a significant other at home: No Do you presently have visiting nurse or other home services: Yes (elder care) Unable to assess alcohol history related to: Unknown Alcohol intake: never Comment: aware of trip hazard Patient Tobacco Use Status: Tobacco use Unknown Tobacco use type: Cigarette Cigarette Packs Per Day: 1 Cigarettes Per Day: 20.0 Years Smoked: 70 Smoked in Last 30 Days: No e-Cigarette/Vaping Use: Never Used Second Hand Smoke Exposure: Yes Use of substances other than those prescribed or required for medical reasons: No Advance Directives: No Advance Directives Information Provided: Yes Nutrition Risks: No Nutritional Risk service: No Current occupational status: retired and disabled Cognitive needs: No (cane/walker) Hearing needs: No Vision needs: No Meds Allergies Allergy/AdvReac Type Severity Reaction Status Date / Time atorvastatin AdvReac Intermediate myalgias Verified 01/15/25 11:17 Active Medications: Current Medications Acetaminophen (Acetaminophen 325 Mg Tablet) 650 mg PO Q6H PRN PRN Reason: Pain, Mild 1-3,fever,headache Brimonidine Tartrate (Brimonidine Tartrate 0.2% Oph 5 Ml Bottle) 1 drop EYE- BOTH TID [facility] Last Admin: 01/16/25 08:38 Dose: 1 drop Calcium Carbonate (Calcium Carbonate 750 Mg Tab.Chew) 750 mg PO Q4H PRN PRN Reason: Heartburn Docusate Sodium (Docusate Sodium 100 Mg Capsule) 100 mg PO BID [facility] Last Admin: 01/16/25 08:38 Dose: 100 mg Magnesium Hydroxide (Milk Of Magnesia 30 Ml Oral.Susp) 30 ml PO DAILY PRN PRN Reason: Constipation Magnesium Oxide (Magnesium Oxide 400 Mg Tablet) 400 mg PO DAILY [facility] Last Admin: 01/16/25 08:38 Dose: 400 mg Melatonin (Melatonin 3 Mg Tablet) 3 mg PO BEDTIME PRN PRN Reason: Insomnia Metoprolol Succinate (Metoprolol Succinate Er 25 Mg Tab.Er.24h) 25 mg PO BID [facility]; Protocol Last Admin: 01/16/25 08:38 Dose: 25 mg Ondansetron HCl (Ondansetron Hcl 4 Mg/2 Ml Vial) 4 mg IVPUSH Q8H PRN PRN Reason: Nausea and Vomiting Pantoprazole Sodium (Pantoprazole Sodium 40 Mg/10 Ml Vial) 40 mg IVPUSH BID@0630,1630 [facility] Last Admin: 01/16/25 06:42 Dose: 40 mg Sodium Biphosphate/Sodium Phosphate (Sodium Phosphate,Drew-Dibasic 133 Ml Enema) 118 ml UT DAILY PRN PRN Reason: Constipation Sodium Chloride (0.9 % Sodium Chloride Flush 3 Ml Syringe) 3 ml IVFLUSH QSHIFT [facility] Last Admin: 01/16/25 08:57 Dose: Not Given Home Medications ?Medication ?Instructions ?Recorded ?Confirmed ?Last Taken ?Type brimonidine 0.2 % eye drops 1 drp ophthalmic (eye) TID macular 04/17/23 01/15/25 Unknown History degeneration aspirin 81 mg capsule 81 mg PO DAILY 07/30/24 01/15/25 1 Day Ago History ~12/27/24 rosuvastatin 20 mg tablet 20 mg PO BEDTIME 08/27/24 01/15/25 1 Day Ago History ~12/27/24 acetaminophen 325 mg tablet 975 mg PO TID 01/15/25 01/15/25 Unknown History magnesium hydroxide 400 mg/5 mL 30 ml PO DAILY PRN Constipation 01/15/25 01/15/25 Unknown History oral suspension (Milk of Magnesia) pantoprazole 40 mg tablet,delayed 40 mg PO DAILY@199901/15/25 01/15/25 Unknown History release sodium phosphates 19 gram-7 118 ml [place] DAILY PRN Constipation 01/15/25 01/15/25 Unknown History gram/118 mL enema (Fleet Enema) Physical Exam 2 Vital Signs: Vital Signs: Last Vital Signs Temp 97.8 F 01/16/25 09:44 Pulse 86 01/16/25 09:44 Resp 16 01/16/25 09:44 BP 106/51 L 01/16/25 09:44 Pulse Ox 99 01/16/25 09:30 O2 Del Method Room Air 01/16/25 09:30 O2 Flow Rate 2 01/16/25 05:44 Oxygen Flow Rate 2 01/15/25 11:16 BMI result Body Mass Index 27.7 Const: General: no acute distress Nutritional Appearance: overweight O rientation/consciousness: patient oriented x3 Limitations: physical limitations HEENT: Head: Yes normal to inspection Ears: hearing grossly normal bilaterally Eyes: Sclerae: sclerae normal Pupils: Equal, round and reactive pupils present Neck: Neck: Yes normal visual inspection Chest: Chest palpation & inspection: normal inspection of the chest Resp: Effort & Inspection: normal respiratory effort Auscultation: clear to auscultation bilaterally Cardio: Palpation: normal PMI Rate: regular rate Rhythm: regular rhythm Heart sounds: S1 normal heart sound present, S2 normal heart sound present and no murmurs GI: Palpation (GI): Soft to palpation, nontender and No hepatosplenomegaly present Auscultation: normal bowel sounds Rectal Exam - Female: deferred Skin: General skin exam: no rashes or lesions noted Neuro: General: patient oriented x3, gait normal and moves all extremities Cranial nerves: Yes Equal, round and reactive pupils present Psych: Appearance: grossly normal Mental Status: mental status grossly normal Results Labs 01/16/25 06:24 01/16/25 06:24 Labs: Short CBC 01/15/25 01/15/25 01/16/25 Range/Units 11:33 23:43 06:24 WBC 10.6 11.8 H 9.4 (4.8-10.8) X10*3/uL Hgb 5.3 L* D 8.0 L D 7.3 L (12.0-16.0) g/dl Hct 19.7 L* D 26.8 L D 24.7 L (37.0-47.0) % Plt Count 448 H D 407 H 375 (160-400) X10*3/uL BMP 01/15/25 01/16/25 11:33 06:24 Sodium 136 139 Potassium 5.2 H D 3.9 D Chloride 107 108 Carbon Dioxide 20 L 23 BUN 61 H 57 H Creatinine 2.95 H 2.81 H Calcium 9.1 8.9 Liver Function 01/15/25 01/16/25 Range/Units 11:33 06:24 Total Bilirubin 0.8 2.5 H (0.0-1.0) mg/dL Direct Bilirubin 0.3 (0.0-0.5) mg/dL AST 176 H 85 H (5-31) U/L ALT 167 H 104 H (0-31) U/L Alkaline Phosphatase 110 87 (39-117) U/L Albumin 3.3 L 2.8 L (3.5-5.0) g/dL Urine 01/15/25 Range/Units 11:37 Urine Color Yellow Urine Appearance Cloudy Urine pH 5.5 (5.0-9.0) Ur Specific [place] 1.015 (1.005-1.025) Urine Protein 300 (3+) H (Neg-Trace) mg/dL Urine Glucose (UA) Negative (Negative) mg/dL Assessment and Plan (1) Acute on chronic anemia: Status: Acute (2) Cholelithiasis: Qualifiers: Cholelithiasis location: gallbladder Status: Acute Plan 89 YF with history of oxygen-dependent COPD, 2 L at baseline history of AFib on Eliquis and aspirin daily, history of cardiorenal syndrome, congestive heart failure with the EF of 40%, hypertension, iron deficiency anemia admitted to [facility] on 01/15/25 after routine labwork demonstrated hemoglobin of 4.8. Patient denies having an upper endoscopy or colonoscopy in the past. Patient has a history of smoking in the past and denies EtOH abuse. On admission to the ER she was found to have a repeat hemoglobin of 5.3, BUN creatinine elevated from baseline of 1-1.2, and transaminitis. Stool occult blood was positive An EKG demonstrates known AFib, no evidence of ischemic changes. Chest x-ray demonstrates cardiomegaly, pulmonary vascular congestion and small bilateral pleural effusions. Patient was transfused 3 U of PRBCs overnight and repeat H & H is 8 & 26.8 post transfusion. Repeat labs today showed H & H of 8.4 and 28. Acute on chronic anemia likely due to slow GI blood loss from Upper (erosive esophagitis, peptic ulcer disease, upper GI AVM or Dieulafoy's) versus lower (Colon polyps or cancer, lower GI AVM or Dieulafoy's) GI source. 12/30/24 ECHOCARDIOGRAM SHOWED: Conclusions: - 1. Moderately reduced LV ejection fraction of 35-40% 2. Mildly reduced RV systolic function 3. Moderate biatrial enlargement 4. At least moderate tricuspid regurgitation 5. Moderately elevated right ventricular systolic pressure with significantly elevated right atrial pressures 6. No gross pericardial effusion RECOMMENDATIONS: 1. Agree with IV PPI and antiemetics 2. Monitor CBC daily and transfuse prn 2. Further evaluation with EGD and colon was discussed with pt's son and HCP, Booker Kulkarni, Pt is very high risk for anesthesia and need cardiology and anesthesia clearance prior to scheduling endoscopic evaluation. Procedures Date of Service Date of Service: 01/16/25
--- NOTE | 2025-01-16 11:47 | P.PNIM_ITS ---
Subjective Subjective Date of Service: 01/16/25 Interval History: No hematemesis, hematochezia, or melena. Tolerating 3rd unit of blood. Denies chest pain or dyspnea. Hard of hearing. Review of Systems Review of Systems: Yes all other systems are reviewed and are negative Physical Exam 2 Vital Signs: Vital Signs: Last Vital Signs Temp 98.7 F 01/16/25 10:04 Pulse 86 01/16/25 10:04 Resp 14 01/16/25 10:04 BP 118/39 L 01/16/25 10:04 Pulse Ox 99 01/16/25 09:30 O2 Del Method Room Air 01/16/25 09:30 O2 Flow Rate 2 01/16/25 05:44 Oxygen Flow Rate 2 01/15/25 11:16 BMI result Body Mass Index 27.7 Gen: in no acute distress HEENT: sclera anicteric, moist but pale mucus membranes Neck: supple Lungs: diminished Heart: regular rate and rhythm, no murmurs Abd: soft, non-tender, non-distended Ext: no edema Skin: warm/well-perfused Neuro: alert and oriented x3, no focal findings Psych: appropriate affect Objective Data Active Medications Acetaminophen (Acetaminophen 325 Mg Tablet) 650 mg PO Q6H PRN PRN Reason: Pain, Mild 1-3,fever,headache Brimonidine Tartrate (Brimonidine Tartrate 0.2% Oph 5 Ml Bottle) 1 drop EYE- BOTH TID [facility] Last Admin: 01/16/25 08:38 Dose: 1 drop Documented By: KIRBY Calcium Carbonate (Calcium Carbonate 750 Mg Tab.Chew) 750 mg PO Q4H PRN PRN Reason: Heartburn Docusate Sodium (Docusate Sodium 100 Mg Capsule) 100 mg PO BID [facility] Last Admin: 01/16/25 08:38 Dose: 100 mg Documented By: KIRBY Magnesium Hydroxide (Milk Of Magnesia 30 Ml Oral.Susp) 30 ml PO DAILY PRN PRN Reason: Constipation Magnesium Oxide (Magnesium Oxide 400 Mg Tablet) 400 mg PO DAILY [facility] Last Admin: 01/16/25 08:38 Dose: 400 mg Documented By: KIRBY Melatonin (Melatonin 3 Mg Tablet) 3 mg PO BEDTIME PRN PRN Reason: Insomnia Metoprolol Succinate (Metoprolol Succinate Er 25 Mg Tab.Er.24h) 25 mg PO BID [facility]; Protocol Last Admin: 01/16/25 08:38 Dose: 25 mg Documented By: KIRBY Ondansetron HCl (Ondansetron Hcl 4 Mg/2 Ml Vial) 4 mg IVPUSH Q8H PRN PRN Reason: Nausea and Vomiting Pantoprazole Sodium (Pantoprazole Sodium 40 Mg/10 Ml Vial) 40 mg IVPUSH BID@0630,1630 [facility] Last Admin: 01/16/25 06:42 Dose: 40 mg Documented By: XIMENA Sodium Biphosphate/Sodium Phosphate (Sodium Phosphate,[place]-Dibasic 133 Ml Enema) 118 ml [place] DAILY PRN PRN Reason: Constipation Sodium Chloride (0.9 % Sodium Chloride Flush 3 Ml Syringe) 3 ml IVFLUSH QSHIFT [facility] Last Admin: 01/16/25 08:57 Dose: Not Given Documented By: KIRBY Non-Admin Reason: Patient Asleep Labs 01/16/25 06:24 01/16/25 06:24 Labs: Laboratory Results - last 24 hr 01/15/25 01/15/25 01/15/25 11:33 11:37 23:43 MCV 77.9 L 78.8 L MCH 20.9 L 23.5 L MCHC 26.9 L 29.9 L RDW 21.9 H 19.0 H Plt Count 448 H D 407 H MPV 10.9 10.4 Immature Gran % (Auto) 0.9 H 0.9 H Neut % (Auto) 76.2 H 76.2 H Lymph % (Auto) 14.4 L 13.4 L [place] % (Auto) 6.9 7.7 Eos % (Auto) 1.0 1.4 Baso % (Auto) 0.6 0.4 Lymph # (Auto) 1.5 1.6 [place] # (Auto) 0.7 0.9 Eos # (Auto) 0.1 0.2 Baso # (Auto) 0.1 0.1 Abs Immat Gran (auto) 0.10 H 0.10 H Absolute Neuts (auto) 8.1 9.0 H Absolute Nucleated RBC 0.420 H 0.380 H Nucleated RBC % (auto) 4.0 H 3.2 H Absolute Retic Percent Retic Immature Retic Fraction Retic Hgb Equivalent PT 23.2 H D INR 2.0 H Anion Gap 14 Estim Creat Clear Calc 11.7 Estimated GFR 15 Random Glucose 138 H Calcium 9.1 Magnesium 2.4 Iron TIBC % Saturation Unsat Iron Binding Ferritin Total Bilirubin 0.8 Direct Bilirubin 0.3 AST 176 H ALT 167 H Alkaline Phosphatase 110 B-Natriuretic Peptide 901 H Total Protein 6.6 Albumin 3.3 L Lipase 28 Urine Color Yellow Urine Appearance Cloudy Urine pH 5.5 [address] [place] 1.015 Urine Protein 300 (3+) H Urine Glucose (UA) Negative Urine Ketones Negative Urine Blood Moderate (2+) H Urine Nitrite Negative Ur Leukocyte Esterase Moderate (2+) H Urine RBC 3-5 H Urine WBC 6-10 Ur Squamous Epith Cells 0-2 Urine Bacteria 1+ Hyaline Casts 3-5 Urine Yeast Present Stool Occult Blood POSITIVE Blood Type A Positive Antibody Screen NEGATIVE Crossmatch See Detail 01/16/25 06:24 MCV 79.4 L MCH 23.5 L MCHC 29.6 L RDW 19.3 H Plt Count 375 MPV 10.3 Immature Gran % (Auto) 0.9 H Neut % (Auto) 78.3 H Lymph % (Auto) 12.0 L [place] % (Auto) 6.6 Eos % (Auto) 1.7 Baso % (Auto) 0.5 Lymph # (Auto) 1.1 L [place] # (Auto) 0.6 Eos # (Auto) 0.2 Baso # (Auto) 0.1 Abs Immat Gran (auto) 0.08 H Absolute Neuts (auto) 7.3 Absolute Nucleated RBC 0.420 H Nucleated RBC % (auto) 4.5 H Absolute Retic 0.044 Percent Retic 1.4 Immature Retic Fraction 7.4 Retic Hgb Equivalent 17.0 L PT INR Anion Gap 12 Estim Creat Clear Calc 12.2 Estimated GFR 16 Random Glucose 106 Calcium 8.9 Magnesium Iron 85 TIBC 292 % Saturation 29 Unsat Iron Binding 207 Ferritin 28 Total Bilirubin 2.5 H Direct Bilirubin AST 85 H ALT 104 H Alkaline Phosphatase 87 B-Natriuretic Peptide 905 H Total Protein 5.6 L Albumin 2.8 L Lipase Urine Color Urine Appearance Urine pH Ur Specific [place] Urine Protein Urine Glucose (UA) Urine Ketones Urine Blood Urine Nitrite Ur Leukocyte Esterase Urine RBC Urine WBC Ur Squamous Epith Cells Urine Bacteria Hyaline Casts Urine Yeast Stool Occult Blood Blood Type Antibody Screen Crossmatch Microbiology Microbiology Results: Microbiology 01/15/25 Unknown Urine Culture - Final Urine Catheterized - [place] Catheter Assessment and Plan (1) NEEL (acute kidney injury): Status: Acute (2) Acute on chronic anemia: Status: Acute Plan d2 for 89yo F with COPD, AF on apixaban, PVD on DAPT, HFrEF with cardiorenal syndrome, recent admission here for septic shock from Pseudomonas UTI, sent to [facility] for STR but sent in with severe anemia, Hb 9->4.8. FOBT positive. acute blood loss anemia due to GI blood loss - NPO, GI consult, IV PPI, HOLD apixaban + ASA + clopidogrel, recheck CBC after 3rd unit of blood NEEL, prerenal vs cardiorenal - hold furosemide, recheck BMP after 3rd unit of blood chronic biventricular HF - did get furosemide IV after 1st unit of blood; monitor carefully for signs of volume overload with 3rd unit of blood - TTE 12/30/24: 1. Moderately reduced LV ejection fraction of 35-40% 2. Mildly reduced RV systolic function 3. Moderate biatrial enlargement 4. At least moderate tricuspid regurgitation 5. Moderately elevated right ventricular systolic pressure with significantly elevated right atrial pressures 6. No gross pericardial effusion - continue metoprolol succinate HTN - hold amlodipine, continue metoprolol succinate transaminasemia - suspect due to decreased perfusion from anemia; improving COPD with chronic hypoxic resp failure - continue 2L O2 as at baseline urinary retention - chronic Fajardo HLD - hold statin due to transaminasemia VTE ppx - SCDs dispo - return to STR In my clinical judgment, the patient requires continued inpatient hospitalization for the following reasons: transfusion, NEEL, GI evaluation Total time managing care of this patient today: 45 minutes. Quality Stroke Does the patient have a stroke diagnosis?: No VTE Prior VTE?: No VTE Risk Level:: Medical - moderate - high VTE Device Contraindication: N/A - Device Ordered VTE Drug Contraindication: Treatment Not Indicated
--- NOTE | 2025-01-16 14:16 | PC.NURSE ---
Pt with low bp's, asymptomatic. notified and new orders for CBC and CMP
[2025-01-16 14:31] LABS: Bilirubin Direct 0.9 mg/dL (0.0-0.5); Lactate Dehydrogenase 346 U/L (122-220)
[2025-01-16 14:38] LABS: Hemoglobin 8.4 g/dl (12.0-16.0)
[2025-01-16 14:49] LABS: Anion Gap 12 (12-20); Blood Urea Nitrogen 54 mg/dL (9-16); Calcium 8.9 mg/dL (8.4-10.2); Carbon Dioxide 22 mmol/L (22-29); Chloride 108 mmol/L (96-108); Creatinine Clr Calc Pharmacy 13.3; Estimated Glomerular Filt Rate 17; Glucose Random 102 mg/dL (60-115); Potassium 4.3 mmol/L (3.3-5.1); Sodium 138 mmol/L (135-145)
[2025-01-16 14:50] LABS: Lactic Acid 1.4 mmol/L (0.5-2.0)
[2025-01-16] MEDS: 0.9 % Sodium Chloride Flush 3 ML SYRINGE IVFLUSH (16:02)
--- NOTE | 2025-01-16 16:15 | MHC.CM.PN ---
CM ATTEMPTED TO CONTACT PTS PRIMARY AND ALTERNATE HCP AGENTS, EMILI [phone] AND MARTHA [phone] BOTH WENT TO , MESSAGE LEFT FOR MARTHA REQUESTING A RETURN CALL
[2025-01-17 03:29] VITALS: BP 105/55; PULSE 91; RESP 16; TEMP 36.2; O2SAT 94
[2025-01-17] MEDS: Pantoprazole Sodium 40 MG/10 ML VIAL IVPUSH ×2 (06:16→16:15)
[2025-01-17 06:59] VITALS: BP 119/56; PULSE 81; RESP 20; TEMP 37.1; O2SAT 99
[2025-01-17 08:20] LABS: Hematocrit 26.4 % (37.0-47.0); Hemoglobin 7.9 g/dl (12.0-16.0); Mean Corpuscular HGB Conc 29.9 g/dl (31.0-35.0); Mean Corpuscular Hemoglobin 24.2 pg (27.0-33.0); Mean Platelet Volume 10.5 fL (9.4-12.3); Platelet Count 394 X10*3/uL (160-400); Red Blood Count 3.26 X10*6/uL (4.20-5.50); Red Cell Distribution Width 19.6 % (11.0-16.0); White Blood Count 11.4 X10*3/uL (4.8-10.8)
[2025-01-17 08:22] LABS: NRBC Pct Auto 1.7 /100WBC (0.0-0.2)
[2025-01-17 08:40] LABS: Alanine Aminotransferase 76 U/L (0-31); Alkaline Phosphatase 90 U/L (39-117); Anion Gap 13 (12-20); Aspartate Amino Transferase 50 U/L (5-31); Bilirubin Total 1.3 mg/dL (0.0-1.0); Blood Urea Nitrogen 50 mg/dL (9-16); Calcium 8.8 mg/dL (8.4-10.2); Carbon Dioxide 23 mmol/L (22-29); Chloride 108 mmol/L (96-108); Creatinine Clr Calc Pharmacy 14.3; Estimated Glomerular Filt Rate 18; Glucose Random 87 mg/dL (60-115); Magnesium 2.1 mg/dL (1.6-2.6); Potassium 3.5 mmol/L (3.3-5.1); Sodium 140 mmol/L (135-145); Total Protein 5.9 g/dL (6.5-8.0)
[2025-01-17 08:42] LABS: B Type Natriuretic Peptide 710 pg/mL (<100)
[2025-01-17] MEDS: Magnesium Oxide 400 MG TABLET PO (09:03)
[2025-01-17] MEDS: Brimonidine Tartrate 0.2% Oph 5 ML BOTTLE 1 DROP EYE-BOTH ×3 (09:03→20:27)
[2025-01-17] MEDS: Docusate Sodium 100 MG CAPSULE PO ×2 (09:03→20:26)
[2025-01-17] MEDS: 0.9 % Sodium Chloride Flush 3 ML SYRINGE IVFLUSH ×3 (09:03→20:26)
[2025-01-17 09:10] LABS: Folate 3.8 ng/mL (> or = 4.0); Vitamin B12 1115 pg/mL (200-900)
[2025-01-17 10:52] VITALS: BP 132/59; PULSE 81; RESP 20; TEMP 36.3; O2SAT 100
--- NOTE | 2025-01-17 13:05 | P.PNIM_ITS ---
Subjective Subjective Date of Service: 01/17/25 Interval History: Seen and evaluated this morning feels comfortable Hb stable no reported melena\bleeding no other events Review of Systems Review of Systems: Yes all other systems are reviewed and are negative Physical Exam 2 Vital Signs: Vital Signs: Last Vital Signs Temp 97.3 F 01/17/25 10:52 Pulse 81 01/17/25 10:52 Resp 20 01/17/25 10:52 BP 132/59 L 01/17/25 10:52 Pulse Ox 100 01/17/25 10:52 O2 Del Method Nasal Cannula 01/17/25 10:52 O2 Flow Rate 2 01/17/25 10:52 Oxygen Flow Rate 2 01/15/25 11:16 BMI result Body Mass Index 28.8 Const: Other: Constitutional : interactive, not in distress, frail looking Cardiovascular : no JVP, no lower extremity edema Respiratory : bilateral chest movement, not in resp distress Gastrointestinal: soft, lax, Non tender Skin : Warm, Dry vascular; RLE color improved, pulse can be felt, tip of grt toe bluish discoloration, mild sensation def., good motor Neurological : Alert & oriented , No focal deficit Objective Data Active Medications Acetaminophen (Acetaminophen 325 Mg Tablet) 650 mg PO Q6H PRN PRN Reason: Pain, Mild 1-3,fever,headache Brimonidine Tartrate (Brimonidine Tartrate 0.2% Oph 5 Ml Bottle) 1 drop EYE- BOTH TID [facility] Last Admin: 01/17/25 09:03 Dose: 1 drop Documented By: BORIS Calcium Carbonate (Calcium Carbonate 750 Mg Tab.Chew) 750 mg PO Q4H PRN PRN Reason: Heartburn Docusate Sodium (Docusate Sodium 100 Mg Capsule) 100 mg PO BID [facility] Last Admin: 01/17/25 09:03 Dose: 100 mg Documented By: BORIS Magnesium Hydroxide (Milk Of Magnesia 30 Ml Oral.Susp) 30 ml PO DAILY PRN PRN Reason: Constipation Magnesium Oxide (Magnesium Oxide 400 Mg Tablet) 400 mg PO DAILY [facility] Last Admin: 01/17/25 09:03 Dose: 400 mg Documented By: BORIS Melatonin (Melatonin 3 Mg Tablet) 3 mg PO BEDTIME PRN PRN Reason: Insomnia Metoprolol Succinate (Metoprolol Succinate Er 25 Mg Tab.Er.24h) 25 mg PO BID [facility]; Protocol Last Admin: 01/16/25 08:38 Dose: 25 mg Documented By: KIRBY Ondansetron HCl (Ondansetron Hcl 4 Mg/2 Ml Vial) 4 mg IVPUSH Q8H PRN PRN Reason: Nausea and Vomiting Pantoprazole Sodium (Pantoprazole Sodium 40 Mg/10 Ml Vial) 40 mg IVPUSH BID@0630,1630 [facility] Last Admin: 01/17/25 06:16 Dose: 40 mg Documented By: TIGRE Sodium Biphosphate/Sodium Phosphate (Sodium Phosphate,[place]-Dibasic 133 Ml Enema) 118 ml [place] DAILY PRN PRN Reason: Constipation Sodium Chloride (0.9 % Sodium Chloride Flush 3 Ml Syringe) 3 ml IVFLUSH QSHIFT [facility] Last Admin: 01/17/25 09:03 Dose: 3 ml Documented By: BORIS Labs 01/17/25 06:50 01/17/25 06:50 Labs: Laboratory Results - last 24 hr 01/15/25 01/16/25 01/16/25 11:37 06:24 14:24 MCV MCH MCHC RDW Plt Count MPV Absolute Nucleated RBC Nucleated RBC % (auto) Anion Gap 12 Estim Creat Clear Calc 13.3 Estimated GFR 17 Random Glucose 102 Lactic Acid 1.4 Calcium 8.9 Magnesium Total Bilirubin Direct Bilirubin 0.9 H AST ALT Alkaline Phosphatase Lactate Dehydrogenase 346 H B-Natriuretic Peptide Total Protein Albumin Vitamin B12 Folate Crossmatch See Detail 01/17/25 06:50 MCV 81.0 MCH 24.2 L MCHC 29.9 L RDW 19.6 H Plt Count 394 MPV 10.5 Absolute Nucleated RBC 0.190 H Nucleated RBC % (auto) 1.7 H Anion Gap 13 Estim Creat Clear Calc 14.3 Estimated GFR 18 Random Glucose 87 Lactic Acid Calcium 8.8 Magnesium 2.1 Total Bilirubin 1.3 H Direct Bilirubin AST 50 H ALT 76 H Alkaline Phosphatase 90 Lactate Dehydrogenase B-Natriuretic Peptide 710 H Total Protein 5.9 L Albumin 3.0 L Vitamin B12 1115 H Folate 3.8 L Crossmatch Microbiology Microbiology Results: Microbiology 01/15/25 Unknown Urine Culture - Final Urine Catheterized - Fajardo Catheter Assessment and Plan (1) Acute blood loss anemia: Status: Acute (2) NEEL (acute kidney injury): Status: Acute (3) Acute on chronic anemia: Status: Acute Plan d2 for 89yo F with COPD, AF on apixaban, PVD on DAPT, HFrEF with cardiorenal syndrome, recent admission here for septic shock from Pseudomonas UTI, sent to [facility] for STR but sent in with severe anemia, Hb 9->4.8. FOBT positive. acute blood loss anemia due to GI blood loss Hb stable after 3 units transfusion GI consult, will need EGD and Colonoscopy pending clearance IV PPI HOLD apixaban + ASA + clopidogrel recheck CBC NEEL, prerenal vs cardiorenal improving slowly at 2.4 from 1 at baseline hold furosemide, recheck BMP chronic biventricular HF monitor carefully for signs of volume overload TTE 12/30/24: Moderately reduced LV ejection fraction of 35-40% continue metoprolol succinate Cardiology consult for clearance for surgery HTN hold amlodipine, continue metoprolol succinate transaminasemia likely due to decreased perfusion from anemia; improving COPD with chronic hypoxic resp failure continue 2L O2 as at baseline urinary retention chronic Fajardo HLD hold statin due to transaminasemia VTE ppx SCDs In my clinical judgment, the patient requires continued inpatient hospitalization for the following reasons: transfusion, NEEL, GI and Cardiology evaluation with possible intervention needed. Quality Stroke Does the patient have a stroke diagnosis?: No VTE Prior VTE?: No VTE Risk Level:: Medical - moderate - high VTE Device Contraindication: N/A - Device Ordered VTE Drug Contraindication: Treatment Not Indicated
[2025-01-17 15:12] VITALS: BP 109/55; PULSE 92; RESP 20; TEMP 37; O2SAT 96
--- NOTE | 2025-01-17 15:15 | PM.CNCAR ---
History of Present Illness History of Present Illness Date of Service: 01/17/25 Requesting physician: Chandan Ryan Consult reason: pre-op evaluation Chief complaint: acute anemia Narrative: I was consulted to see Jaki in cardiology consultation today for preoperative cardiovascular risk stratification prior to endoscopy. These are considered low risk procedures. Cardiology consult was called because of multiple comorbidities. Patient is 89 year female and does not provide any significant history. History obtained from the chart. Patient with prior history of biventricular failure with moderately reduced LV systolic function with moderate TR with evidence of heart failure syndrome in the past, chronic atrial fibrillation, peripheral vascular disease, COPD with no documented history of coronary artery disease. Has history of hypertension. Patient admitted recently with septic shock related to Pseudomonas UTI and subsequently had acute leg ischemia seen by vascular surgery. She was then started on dual antiplatelet therapy as well as Eliquis and [facility] From there she has been referred here because of severe anemia and noted to have marked anemia. Patient noted to have elevated creatinine consistent with probably acute kidney injury question cardiorenal syndrome versus related to acute anemia. Patient does not give any symptoms although difficult to obtain any history. She denies and does not appear to be short of breath on respiratory distress. Denies any chest pain. Remains in AFib with borderline rate control. Review of Systems Review of Systems: Yes Unobtainable due to mental status Neurologic: Reports confusion Psychiatric: Psychiatric: Reports confusion PMFSH Past Medical History Medical History PAD (peripheral artery disease) CHF (congestive heart failure) Falls Congestive heart failure Afib Macular degeneration Overweight (BMI 25.0-29.9) COVID-19 vaccine administered History of COVID-19 Restrictive lung disease Edema Current smoker Iron deficiency anemia Tobacco abuse Carotid bruit Obesity (BMI 30-39.9) Depression Insomnia Allergic rhinitis Elevated TSH GERD without esophagitis Impaired fasting glucose Anemia Knee osteoarthritis Vitamin D deficiency Chronic kidney disease (CKD), stage III (moderate) Pure hypercholesterolemia Benign essential hypertension Coronary artery disease Family History Family History Father Medical history unknown Mother CVD (cardiovascular disease) Surgical History Surgical History Hx of total knee arthroplasty Hx of colonoscopy Hx of cardiac cath Hx of bilateral cataract extraction History of hysterectomy Social History Social History Household Members: Other Household Members Other:: Daughter and grandson Housing: Assisted Living Facility Are you a primary home care specialist to a significant other at home: No Do you presently have visiting nurse or other home services: Yes (elder care) Unable to assess alcohol history related to: Unknown Alcohol intake: never Comment: aware of trip hazard Patient Tobacco Use Status: Current everyday Tobacco user Tobacco use type: Cigarette Cigarette Packs Per Day: 1 Cigarettes Per Day: 20.0 Years Smoked: 70 e-Cigarette/Vaping Use: Never Used Second Hand Smoke Exposure: Yes service: No Current occupational status: retired and disabled Cognitive needs: No (cane/walker) Hearing needs: No Vision needs: No Meds Allergies Allergy/AdvReac Type Severity Reaction Status Date / Time atorvastatin AdvReac Intermediate myalgias Verified 01/15/25 11:17 Active Medications: Current Medications Acetaminophen (Acetaminophen 325 Mg Tablet) 650 mg PO Q6H PRN PRN Reason: Pain, Mild 1-3,fever,headache Brimonidine Tartrate (Brimonidine Tartrate 0.2% Oph 5 Ml Bottle) 1 drop EYE-BOTH TID [facility] Last Admin: 01/17/25 09:03 Dose: 1 drop Calcium Carbonate (Calcium Carbonate 750 Mg Tab.Chew) 750 mg PO Q4H PRN PRN Reason: Heartburn Docusate Sodium (Docusate Sodium 100 Mg Capsule) 100 mg PO BID [facility] Last Admin: 01/17/25 09:03 Dose: 100 mg Magnesium Hydroxide (Milk Of Magnesia 30 Ml Oral.Susp) 30 ml PO DAILY PRN PRN Reason: Constipation Magnesium Oxide (Magnesium Oxide 400 Mg Tablet) 400 mg PO DAILY [facility] Last Admin: 01/17/25 09:03 Dose: 400 mg Melatonin (Melatonin 3 Mg Tablet) 3 mg PO BEDTIME PRN PRN Reason: Insomnia Metoprolol Succinate (Metoprolol Succinate Er 25 Mg Tab.Er.24h) 25 mg PO BID [facility]; Protocol Last Admin: 01/16/25 08:38 Dose: 25 mg Ondansetron HCl (Ondansetron Hcl 4 Mg/2 Ml Vial) 4 mg IVPUSH Q8H PRN PRN Reason: Nausea and Vomiting Pantoprazole Sodium (Pantoprazole Sodium 40 Mg/10 Ml Vial) 40 mg IVPUSH BID@0630,1630 [facility] Last Admin: 01/17/25 06:16 Dose: 40 mg Sodium Biphosphate/Sodium Phosphate (Sodium Phosphate,[place]-Dibasic 133 Ml Enema) 118 ml [place] DAILY PRN PRN Reason: Constipation Sodium Chloride (0.9 % Sodium Chloride Flush 3 Ml Syringe) 3 ml IVFLUSH QSHIFT [facility] Last Admin: 01/17/25 09:03 Dose: 3 ml Home Medications ?Medication ?Instructions ?Recorded ?Confirmed ?Last Taken ?Type brimonidine 0.2 % eye drops 1 drp ophthalmic (eye) TID macular 04/17/23 01/15/25 Unknown History degeneration aspirin 81 mg capsule 81 mg PO DAILY 07/30/24 01/15/25 1 Day Ago History ~12/27/24 rosuvastatin 20 mg tablet 20 mg PO BEDTIME 08/27/24 01/15/25 1 Day Ago History ~12/27/24 acetaminophen 325 mg tablet 975 mg PO TID 01/15/25 01/15/25 Unknown History magnesium hydroxide 400 mg/5 mL 30 ml PO DAILY PRN Constipation 01/15/25 01/15/25 Unknown History oral suspension (Milk of Magnesia) pantoprazole 40 mg tablet,delayed 40 mg PO DAILY@199901/15/25 01/15/25 Unknown History release sodium phosphates 19 gram-7 118 ml [place] DAILY PRN Constipation 01/15/25 01/15/25 Unknown History gram/118 mL enema (Fleet Enema) Physical Exam Vital Signs: Vital Signs: Last Vital Signs Temp 97.3 F 01/17/25 10:52 Pulse 81 01/17/25 10:52 Resp 20 01/17/25 10:52 BP 132/59 L 01/17/25 10:52 Pulse Ox 100 01/17/25 10:52 O2 Del Method Nasal Cannula 01/17/25 10:52 O2 Flow Rate 2 01/17/25 10:52 Oxygen Flow Rate 2 01/15/25 11:16 BMI result Body Mass Index 28.8 Const: General: cooperative, comfortable, alert, awake, confusion and tired appearing Nutritional Appearance: average body habitus Orientation/consciousness: confusion HEENT: Head: Yes normocephalic and Yes atraumatic Neck: Neck: Yes trachea midline, Yes supple and Yes no JVD Resp: Effort & Inspection: decreased respiratory effort Auscultation: diminished lung sounds Cardio: Jugular venous distension: no JVD Rhythm: abnormal rhythm irregularly irregular Heart sounds: S1 normal heart sound present, S2 normal heart sound present, no click, no gallops, no murmurs and no rubs GI: Auscultation: normal bowel sounds Skin: General skin exam: no rashes or lesions noted Neuro: General: no focal motor deficits and confusion Extrem: General: Yes no clubbing, cyanosis or edema Objective Labs and Meds 01/17/25 06:50 01/17/25 06:50 Lab results: Laboratory Results - last 24 hr 01/17/25 06:50 WBC 11.4 H RBC 3.26 L Hgb 7.9 L Hct 26.4 L MCV 81.0 MCH 24.2 L MCHC 29.9 L RDW 19.6 H Plt Count 394 MPV 10.5 Absolute Nucleated RBC 0.190 H Nucleated RBC % (auto) 1.7 H Sodium 140 Potassium 3.5 Chloride 108 Carbon Dioxide 23 Anion Gap 13 BUN 50 H Creatinine 2.46 H Estim Creat Clear Calc 14.3 Estimated GFR 18 Random Glucose 87 Calcium 8.8 Magnesium 2.1 Total Bilirubin 1.3 H AST 50 H ALT 76 H Alkaline Phosphatase 90 B-Natriuretic Peptide 710 H Total Protein 5.9 L Albumin 3.0 L Vitamin B12 1115 H Folate 3.8 L Assessment and Plan (1) Preoperative cardiovascular examination: Status: Acute Preoperative cardiovascular risk stratification this elderly woman with cognitive dysfunction admitted with severe GI bleed with acute kidney injury and with prior history of multiple cardiovascular morbidity including biventricular heart failure with LV systolic dysfunction, chronic atrial fibrillation, peripheral vascular disease. No clear presence of CAD noted in the past although this is highly likely given her age and multiple comorbidities. Clinically not in heart failure and no obvious signs of ischemia or symptoms of ischemia. The procedure she is undergoing his low risk procedure with colonoscopy/endoscopy to evaluate for GI bleed with patient presented with significant GI bleed and will need to decide about future anticoagulation/antiplatelet measures. For now all her medications have been withheld. Continue metoprolol. She is at intermediate to high risk for perioperative cardiovascular morbidity mortality.. Close attention to hypotension and continue full disclosure monitoring. Can use intravenous Lopressor during the procedure if the heart rate is elevated. Will sign of the case. Thank you for allowing me to partake in his care Procedures Date of Service Date of Service: 01/17/25
--- NOTE | 2025-01-17 15:33 | MHC.CM.PN ---
Addendum entered by Kassandra Collins 01/17/25 15:37: CORRECTION: HCP ON FILE Original Note: CM MET WITH PT, DAUGHTER AND GRAND DAUGHTER AT BEDSIDE PT LIVES WITH ANOTHER DAUGHTER AND HAS ONLY MOW FOR SERVICES AND USES A ROLLATOR FOR DME PT HAS BEEN AT [facility], AND PER DAUGHTER, HAS BEEN DEPENDENT FOR TRANSFERS AND MOST CARE RECENTLY COPY OF HCP REQUESTED PCP: HEATHER LAWTON IMM DELIVERED PER DAUGHTER, PT IS A BED HOLD AT [facility] AND WILL RETURN TO CONTINUE STR REFERRAL SENT TO SNF FOR CONFIRMATION BLS TRANSPORT WILL BE NECESSARY
[2025-01-17] MEDS: Acetaminophen 325 MG TABLET 650 MG PO (16:14)
[2025-01-17 19:40] VITALS: BP 138/73; PULSE 90; RESP 16; TEMP 36.7; O2SAT 100
[2025-01-18] VITALS (10 sets, daily range): BP systolic 106–159; BP diastolic 57–90; PULSE 79–105; RESP 15–20; TEMP 36.1–37.1; O2SAT 94–99
[2025-01-18] MEDS: Pantoprazole Sodium 40 MG/10 ML VIAL IVPUSH ×2 (05:41→15:40)
[2025-01-18 06:28] LABS: MANUAL DIFF FLAG NO
[2025-01-18 06:33] LABS: Basophils Percent Auto 0.4 % (0-2); Eosinophils Absolute Auto 0.2 X10*3/uL (0.0-0.4); Eosinophils Percent Auto 2.5 % (0-4); Hematocrit 25.9 % (37.0-47.0); Hemoglobin 7.5 g/dl (12.0-16.0); Imm Gran Abs Auto 0.06 X10*3/uL (0.00-0.03); Imm Gran Pct Auto 0.6 % (0.0-0.4); Lymphocytes Absolute Auto 1.5 X10*3/uL (1.2-4.9); Lymphocytes Percent Auto 15.3 % (20-40); Mean Corpuscular Volume 82.7 fL (80.0-98.0); Mean Platelet Volume 9.9 fL (9.4-12.3); Monocytes Absolute Auto 0.8 X10*3/uL (0.1-1.2); Monocytes Percent Auto 7.8 % (2-11); NRBC Pct Auto 0.7 /100WBC (0.0-0.2); Neutrophils Absolute Auto 7.1 x10*3/uL (2.0-8.3); Neutrophils Percent Auto 73.4 % (45-73); Platelet Count 356 X10*3/uL (160-400); Red Blood Count 3.13 X10*6/uL (4.20-5.50); Red Cell Distribution Width 20.5 % (11.0-16.0); White Blood Count 9.7 X10*3/uL (4.8-10.8)
[2025-01-18 06:46] LABS: Anion Gap 9 (12-20); Blood Urea Nitrogen 41 mg/dL (9-16); Calcium 8.5 mg/dL (8.4-10.2); Carbon Dioxide 24 mmol/L (22-29); Chloride 109 mmol/L (96-108); Creatinine Clr Calc Pharmacy 18.2; Estimated Glomerular Filt Rate 24; Glucose Random 95 mg/dL (60-115); Potassium 3.4 mmol/L (3.3-5.1); Sodium 139 mmol/L (135-145)
[2025-01-18] MEDS: 0.9 % Sodium Chloride Flush 3 ML SYRINGE IVFLUSH ×3 (08:59→21:27)
[2025-01-18] MEDS: Magnesium Oxide 400 MG TABLET PO (08:59)
[2025-01-18] MEDS: Brimonidine Tartrate 0.2% Oph 5 ML BOTTLE 1 DROP EYE-BOTH ×3 (08:59→21:25)
[2025-01-18] MEDS: Docusate Sodium 100 MG CAPSULE PO ×2 (08:59→21:25)
--- NOTE | 2025-01-18 11:05 | MHC.CM.PN ---
Per ROUNDS discussion, Patient is not yet medically cleared for dc (IV Protonix); returning to STR is the goal and CM will continue to follow.
--- NOTE | 2025-01-18 15:11 | P.PNIM_ITS ---
Subjective Subjective Date of Service: 01/18/25 Interval History: Seen and evaluated this morning feels comfortable Hb dropped to 7.5 no reported melena\bleeding no other events Review of Systems Review of Systems: Yes all other systems are reviewed and are negative Physical Exam 2 Vital Signs: Vital Signs: Last Vital Signs Temp 98.8 F 01/18/25 12:45 Pulse 92 01/18/25 12:45 Resp 16 01/18/25 12:45 BP 124/58 L 01/18/25 12:45 Pulse Ox 97 01/18/25 12:00 O2 Del Method Nasal Cannula 01/18/25 12:00 O2 Flow Rate 2 01/18/25 12:00 Oxygen Flow Rate 2 01/15/25 11:16 BMI result Body Mass Index 28.8 Const: Other: Constitutional : interactive, not in distress, frail looking Cardiovascular : no JVP, no lower extremity edema Respiratory : bilateral chest movement, not in resp distress Gastrointestinal: soft, lax, Non tender Skin : Warm, Dry vascular; RLE color improved, pulse can be felt, tip of grt toe bluish discoloration, mild sensation def., good motor Neurological : Alert & oriented , No focal deficit Objective Data Active Medications Acetaminophen (Acetaminophen 325 Mg Tablet) 650 mg PO Q6H PRN PRN Reason: Pain, Mild 1-3,fever,headache Last Admin: 01/17/25 16:14 Dose: 650 mg Documented By: BORIS Brimonidine Tartrate (Brimonidine Tartrate 0.2% Oph 5 Ml Bottle) 1 drop EYE- BOTH TID [facility] Last Admin: 01/18/25 08:59 Dose: 1 drop Documented By: GABY Calcium Carbonate (Calcium Carbonate 750 Mg Tab.Chew) 750 mg PO Q4H PRN PRN Reason: Heartburn Docusate Sodium (Docusate Sodium 100 Mg Capsule) 100 mg PO BID [facility] Last Admin: 01/18/25 08:59 Dose: 100 mg Documented By: GABY Magnesium Hydroxide (Milk Of Magnesia 30 Ml Oral.Susp) 30 ml PO DAILY PRN PRN Reason: Constipation Magnesium Oxide (Magnesium Oxide 400 Mg Tablet) 400 mg PO DAILY [facility] Last Admin: 01/18/25 08:59 Dose: 400 mg Documented By: GABY Melatonin (Melatonin 3 Mg Tablet) 3 mg PO BEDTIME PRN PRN Reason: Insomnia Metoprolol Succinate (Metoprolol Succinate Er 25 Mg Tab.Er.24h) 25 mg PO BID [facility]; Protocol Last Admin: 01/16/25 08:38 Dose: 25 mg Documented By: KIRBY Ondansetron HCl (Ondansetron Hcl 4 Mg/2 Ml Vial) 4 mg IVPUSH Q8H PRN PRN Reason: Nausea and Vomiting Pantoprazole Sodium (Pantoprazole Sodium 40 Mg/10 Ml Vial) 40 mg IVPUSH BID@0630,1630 [facility] Last Admin: 01/18/25 05:41 Dose: 40 mg Documented By: MARIO Sodium Biphosphate/Sodium Phosphate (Sodium Phosphate,[place]-Dibasic 133 Ml Enema) 118 ml [place] DAILY PRN PRN Reason: Constipation Sodium Chloride (0.9 % Sodium Chloride Flush 3 Ml Syringe) 3 ml IVFLUSH QSHIFT [facility] Last Admin: 01/18/25 08:59 Dose: 3 ml Documented By: GABY Labs 01/18/25 06:00 01/18/25 06:00 Labs: Laboratory Results - last 24 hr 01/15/25 01/18/25 11:37 06:00 MCV 82.7 MCH 24.0 L MCHC 29.0 L RDW 20.5 H Plt Count 356 MPV 9.9 Immature Gran % (Auto) 0.6 H Neut % (Auto) 73.4 H Lymph % (Auto) 15.3 L [place] % (Auto) 7.8 Eos % (Auto) 2.5 Baso % (Auto) 0.4 Lymph # (Auto) 1.5 [place] # (Auto) 0.8 Eos # (Auto) 0.2 Baso # (Auto) 0.0 Abs Immat Gran (auto) 0.06 H Absolute Neuts (auto) 7.1 Absolute Nucleated RBC 0.070 H Nucleated RBC % (auto) 0.7 H Anion Gap 9 L Estim Creat Clear Calc 18.2 Estimated GFR 24 Random Glucose 95 Calcium 8.5 Blood Type A Positive Antibody Screen NEGATIVE Crossmatch See Detail Assessment and Plan (1) Acute blood loss anemia: Status: Acute (2) NEEL (acute kidney injury): Status: Acute (3) Acute on chronic anemia: Status: Acute Plan d2 for 89yo F with COPD, AF on apixaban, PVD on DAPT, HFrEF with cardiorenal syndrome, recent admission here for septic shock from Pseudomonas UTI, sent to [facility] for STR but sent in with severe anemia, Hb 9->4.8. FOBT positive. acute blood loss anemia due to GI blood loss Hb stable after 3 units transfusion, dropped to 7.5 this morning GI consult, eed EGD and Colonoscopy tomorrow IV PPI HOLD apixaban + ASA + clopidogrel To give 1 more unit Cardiology cleared her for procedure with high risk recheck CBC NEEL, prerenal vs cardiorenal improving to 1.9 from 1 at baseline hold furosemide, recheck BMP chronic biventricular HF monitor carefully for signs of volume overload TTE 12/30/24: Moderately reduced LV ejection fraction of 35-40% continue metoprolol succinate Cardiology consult for clearance for surgery HTN hold amlodipine, continue metoprolol succinate transaminasemia likely due to decreased perfusion from anemia; improving COPD with chronic hypoxic resp failure continue 2L O2 as at baseline urinary retention chronic Fajardo HLD hold statin due to transaminasemia VTE ppx SCDs In my clinical judgment, the patient requires continued inpatient hospitalization for the following reasons: transfusion, NEEL, GI and Cardiology evaluation with intervention needed. Quality Stroke Does the patient have a stroke diagnosis?: No VTE Prior VTE?: No VTE Risk Level:: Medical - moderate - high VTE Device Contraindication: N/A - Device Ordered VTE Drug Contraindication: Treatment Not Indicated
[2025-01-18] MEDS: bisacodyL 5 MG TABLET.DR 10 MG PO (15:39)
[2025-01-18] MEDS: PEG 3350/Na Sulf,Bicarb,Cl/KCL 4,000 ML SOLN.RECON 4000 ML PO (15:39)
[2025-01-18] MEDS: Phytonadione (Vit K1) 5 MG in 0.9 % Sodium Chloride 50 ML 50.5 MG IV (20:52)
[2025-01-19] VITALS (8 sets, daily range): BP systolic 100–146; BP diastolic 45–73; PULSE 91–121; RESP 16–20; TEMP 36.1–37.4; O2SAT 94–99
--- NOTE | 2025-01-19 02:40 | PC.NURSE ---
patient has not been drinking bowel prep. she took some sips earlier & with her meds but she doesn't want to drink anymore.
[2025-01-19] MEDS: Pantoprazole Sodium 40 MG/10 ML VIAL IVPUSH ×2 (05:28→17:43)
[2025-01-19 05:49] LABS: MANUAL DIFF FLAG NO
[2025-01-19 05:54] LABS: Basophils Absolute Auto 0.1 X10*3/uL (0.0-0.2); Basophils Percent Auto 0.4 % (0-2); Eosinophils Absolute Auto 0.1 X10*3/uL (0.0-0.4); Eosinophils Percent Auto 1.1 % (0-4); Hematocrit 33.7 % (37.0-47.0); Hemoglobin 10.1 g/dl (12.0-16.0); Imm Gran Abs Auto 0.06 X10*3/uL (0.00-0.03); Imm Gran Pct Auto 0.5 % (0.0-0.4); Lymphocytes Absolute Auto 0.9 X10*3/uL (1.2-4.9); Lymphocytes Percent Auto 6.5 % (20-40); Mean Corpuscular Hemoglobin 25.1 pg (27.0-33.0); Mean Corpuscular Volume 83.8 fL (80.0-98.0); Monocytes Absolute Auto 0.6 X10*3/uL (0.1-1.2); Monocytes Percent Auto 4.7 % (2-11); NRBC Pct Auto 0.3 /100WBC (0.0-0.2); Neutrophils Absolute Auto 11.5 x10*3/uL (2.0-8.3); Neutrophils Percent Auto 86.8 % (45-73); Platelet Count 373 X10*3/uL (160-400); Red Blood Count 4.02 X10*6/uL (4.20-5.50); Red Cell Distribution Width 19.9 % (11.0-16.0); White Blood Count 13.3 X10*3/uL (4.8-10.8)
[2025-01-19 05:59] LABS: Prothrombin Time 11.7 SEC (10.9-12.4)
[2025-01-19 06:11] LABS: Anion Gap 11 (12-20); Blood Urea Nitrogen 31 mg/dL (9-16); Calcium 9.1 mg/dL (8.4-10.2); Carbon Dioxide 26 mmol/L (22-29); Chloride 108 mmol/L (96-108); Creatinine Clr Calc Pharmacy 21.6; Estimated Glomerular Filt Rate 30; Glucose Random 93 mg/dL (60-115); Potassium 3.6 mmol/L (3.3-5.1); Sodium 141 mmol/L (135-145)
[2025-01-19] MEDS: Magnesium Oxide 400 MG TABLET PO (07:25)
[2025-01-19] MEDS: Brimonidine Tartrate 0.2% Oph 5 ML BOTTLE 1 DROP EYE-BOTH ×3 (07:25→20:20)
[2025-01-19] MEDS: 0.9 % Sodium Chloride Flush 3 ML SYRINGE IVFLUSH ×3 (07:25→20:20)
[2025-01-19] MEDS: Docusate Sodium 100 MG CAPSULE PO (07:25)
--- NOTE | 2025-01-19 08:12 | P.OPN-COLO_ITS ---
Colonoscopy Operative Note Operative Note Date of Service: 01/19/25 Narrative: Operative Information Procedure Description: Colonoscopy Indication: hx of colon cancer, surveillance Anesthesia: MAC COLONOSCOPY Instrument: Olympus variable stiffness pediatric scope 190L Colonoscopy Monitoring: Vital signs and clinical assessment, continuous EKG monitoring, Pulse oximetry, Carbon Dioxide monitoring and blood pressure monitoring were done throughout the procedure. Colon withdrawal time was 14 minutes. Procedure: The patient was placed in the left lateral decubitis position and pre-procedure medications were administered. After a digital rectal examination of the ano-rectum, the video colonoscope was inserted into the rectum and advanced through the colon to the cecum/TI. The colonoscope was slowly withdrawn in a retrograde panoramic fashion and the colon mucosa was carefully examined including a retroflexed view of the rectum. Findings and interventions are described below. Procedure Difficulty: easy Findings: Terminal Ileum-normal Cecum:normal right sided retroflexion- normal Ascending Colon: normal Transverse Colon -normal Descending Colon:normal Sigmoid Colon: normal Rectum: Retroflexion with small internal hemorrhoids seen, grade I, colo rectal anasotmosis noted, granular tissue maybe normal bx taken, there were retained farideh which were removed due to suspected secondary inflammation from these Anorectum - normal Intervention: removal of farideh, biopsies Colon preparation: [place] Bowel Preparation Scale Right colon; 2 Transverse colon: 2 Left colon; 2 (0 = Unprepared colon segment with mucosa not seen due to solid stool that cannot be cleared. 1 = Portion of mucosa of the colon segment seen, but other areas of the colon segment not well seen due to staining, residual stool and/or opaque liquid. 2 = Minor amount of residual staining, small fragments of stool and/or opaque liquid, but mucosa of colon segment seen well. 3 = Entire mucosa of colon segment seen well with no residual staining, small fragments of stool or opaque liquid) Impression and Post Procedure Diagnosis: internal hemorrhoids Plan: High fiber diet leaflet Avoid straining at stool, epsom salts and sitz bath, anusol supps or cream Repeat Colonoscopy in 2-3 years due to hx of CRC or earlier if clinically indicated await bx results Above findings were reviewed with the patient and relevant handouts were provided if indicated.
--- NOTE | 2025-01-19 08:16 | P.PNGI_ITS ---
Subjective Subjective Date of Service: 01/19/25 Interval History: hgb stable imprvied no abdominal pain no nausea or vomiting unable to do prep Critical Care Time (minutes): 0 Physical Exam 2 Vital Signs: Vital Signs: Last Vital Signs Temp 99.2 F 01/19/25 07:56 Pulse 117 H 01/19/25 07:56 Resp 16 01/19/25 07:56 BP 145/61 H 01/19/25 07:56 Pulse Ox 97 01/19/25 07:56 O2 Del Method Nasal Cannula 01/19/25 07:56 O2 Flow Rate 2 01/19/25 07:56 Oxygen Flow Rate 2 01/15/25 11:16 BMI result Body Mass Index 28.8 EXAM: GENERAL: The patient is frail VITAL SIGNS:see workflow HEENT: Nonicteric sclerae, PERRLA, EOMI. Oropharynx clear. Moist mucous membranes. Conjunctivae appear well perfused. No thyroid mass. CHEST: Chest wall is nontender. HEART: iregular rate and rhythm LUNGS: Clear to auscultation bilaterally. ABDOMEN: Soft, positive bowel sounds, nontender, no organomegaly.no flank tenderness SKIN: No rash, no excessive bruising, petechiae, or purpura. NEUROLOGIC: Cranial nerves II-XII intact without motor/sensory deficit. Psych: normal affect Objective Data Labs 01/19/25 05:43 01/19/25 05:44 Labs: Laboratory Results - last 24 hr 01/15/25 01/15/25 01/19/25 11:33 11:37 05:43 WBC 13.3 H RBC 4.02 L D Hgb 10.1 L D Hct 33.7 L D MCV 83.8 MCH 25.1 L MCHC 30.0 L RDW 19.9 H Plt Count 373 MPV 10.0 Immature Gran % (Auto) 0.5 H Neut % (Auto) 86.8 H Lymph % (Auto) 6.5 L [place] % (Auto) 4.7 Eos % (Auto) 1.1 Baso % (Auto) 0.4 Lymph # (Auto) 0.9 L [place] # (Auto) 0.6 Eos # (Auto) 0.1 Baso # (Auto) 0.1 Abs Immat Gran (auto) 0.06 H Absolute Neuts (auto) 11.5 H Absolute Nucleated RBC 0.040 H Nucleated RBC % (auto) 0.3 H Smear Path Review SEE NOTE PT 11.7 D INR 1.0 Sodium Potassium Chloride Carbon Dioxide Anion Gap BUN Creatinine Estim Creat Clear Calc Estimated GFR Random Glucose Calcium Blood Type A Positive Antibody Screen NEGATIVE Crossmatch See Detail 01/19/25 05:44 WBC RBC Hgb Hct MCV MCH MCHC RDW Plt Count MPV Immature Gran % (Auto) Neut % (Auto) Lymph % (Auto) [place] % (Auto) Eos % (Auto) Baso % (Auto) Lymph # (Auto) [place] # (Auto) Eos # (Auto) Baso # (Auto) Abs Immat Gran (auto) Absolute Neuts (auto) Absolute Nucleated RBC Nucleated RBC % (auto) Smear Path Review PT INR Sodium 141 Potassium 3.6 Chloride 108 Carbon Dioxide 26 Anion Gap 11 L BUN 31 H Creatinine 1.63 H Estim Creat Clear Calc 21.6 Estimated GFR 30 Random Glucose 93 Calcium 9.1 D Blood Type Antibody Screen Crossmatch Microbiology Microbiology Results: Microbiology 01/15/25 Unknown Urine Catheterized - Fajardo Catheter Urine Culture - Final Procedures Date of Service Date of Service: 01/19/25 Progress Note: A&P Assessment and plan (1) Acute blood loss anemia: Status: Acute Plan 1/ anemia, uncertain etiology wide differentials, neoplasia, AVm, PUD, gastritis, malabsorption PLAN: /1 EGd today, with either colonsocopy or sigmoidoscopy depending on quality of prep Time Spent With Patient Time: Total time managing care of this patient today ____ minutes. Quality Stroke Does the patient have a stroke diagnosis?: No VTE Prior VTE?: No VTE Risk Level:: Medical - moderate - high VTE Device Contraindication: N/A - Device Ordered VTE Drug Contraindication: Treatment Not Indicated
--- NOTE | 2025-01-19 08:29 | HO.ANESPROP2 ---
[facility] Active Problems Active Problems: All Active Problems Acute blood loss anemia (Acute) NEEL (acute kidney injury) (Acute) Acute on chronic anemia (Acute) Weakness (Acute) Cholelithiasis (Acute) Biventricular heart failure (Acute) Cardiorenal syndrome (Acute) NEEL (acute kidney injury) (Acute) COPD exacerbation (Acute) Acute congestive heart failure (Acute) Hypoxia (Acute) Pneumonia (Acute) Hypertension (Acute) Atrial fibrillation with rapid ventricular response (Acute) Cognitive decline (Acute) Unsteady gait (Acute) Mixed stress and urge urinary incontinence (Acute) Impaired fasting glucose (Acute) Macular degeneration (Acute) Vision abnormalities (Acute) Acute respiratory failure with hypoxia (Acute) Adult failure to thrive (Acute) COVID-19 virus infection (Acute) Overweight (BMI 25.0-29.9) (Acute) Overactive bladder (Acute) Left knee pain (Acute) Skin mole (Acute) Nocturnal leg cramps (Acute) Benign essential hypertension (Acute) Primary osteoarthritis of left knee (Acute) Bronchitis (Acute) Preoperative cardiovascular examination (Acute) Pre-op evaluation (Acute) Pre-operative exam (Acute) Osteoarthritis of left knee (Acute) Status post total knee replacement, left (Acute) Quadriceps tendon rupture (Acute) Iron deficiency anemia (Acute) Past Medical History Medical History PAD (peripheral artery disease) CHF (congestive heart failure) Falls Congestive heart failure Afib Macular degeneration Overweight (BMI 25.0-29.9) COVID-19 vaccine administered History of COVID-19 Restrictive lung disease Edema Current smoker Iron deficiency anemia Tobacco abuse Carotid bruit Obesity (BMI 30-39.9) Depression Insomnia Allergic rhinitis Elevated TSH GERD without esophagitis Impaired fasting glucose Anemia Knee osteoarthritis Vitamin D deficiency Chronic kidney disease (CKD), stage III (moderate) Pure hypercholesterolemia Benign essential hypertension Coronary artery disease Functional capacity: bed bound Family History Family History Father Medical history unknown Mother CVD (cardiovascular disease) Family history of problems with anesthesia: No Surgical History Surgical History Hx of total knee arthroplasty Hx of colonoscopy Hx of cardiac cath Hx of bilateral cataract extraction History of hysterectomy History of Problems with Anesthesia: No Social History Social History Household Members: Other Household Members Other:: Daughter and grandson Housing: Assisted Living Facility Are you a primary care coordination manager to a significant other at home: No Do you presently have visiting nurse or other home services: No Unable to assess alcohol history related to: Unknown Alcohol intake: never Comment: aware of trip hazard Patient Tobacco Use Status: Former Tobacco user Tobacco use type: Cigarette Cigarette Packs Per Day: 1 Cigarettes Per Day: 20.0 Years Smoked: 70 e-Cigarette/Vaping Use: Never Used Second Hand Smoke Exposure: Yes service: No Current occupational status: retired and disabled Cognitive needs: No (cane/walker) Hearing needs: No Vision needs: No Meds Allergies Allergy/AdvReac Type Severity Reaction Status Date / Time atorvastatin AdvReac Intermediate myalgias Verified 01/15/25 11:17 Active Medications: Current Medications Acetaminophen (Acetaminophen 325 Mg Tablet) 650 mg PO Q6H PRN PRN Reason: Pain, Mild 1-3,fever,headache Last Admin: 01/17/25 16:14 Dose: 650 mg Brimonidine Tartrate (Brimonidine Tartrate 0.2% Oph 5 Ml Bottle) 1 drop EYE-BOTH TID [facility] Last Admin: 01/19/25 07:25 Dose: 1 drop Calcium Carbonate (Calcium Carbonate 750 Mg Tab.Chew) 750 mg PO Q4H PRN PRN Reason: Heartburn Docusate Sodium (Docusate Sodium 100 Mg Capsule) 100 mg PO BID [facility] Last Admin: 01/19/25 07:25 Dose: 100 mg Lactated Ringer's (Lr) 1,000 mls @ 80 mls/hr IVCONT .[id number] [facility] Magnesium Hydroxide (Milk Of Magnesia 30 Ml Oral.Susp) 30 ml PO DAILY PRN PRN Reason: Constipation Magnesium Oxide (Magnesium Oxide 400 Mg Tablet) 400 mg PO DAILY [facility] Last Admin: 01/19/25 07:25 Dose: 400 mg Melatonin (Melatonin 3 Mg Tablet) 3 mg PO BEDTIME PRN PRN Reason: Insomnia Metoprolol Succinate (Metoprolol Succinate Er 25 Mg Tab.Er.24h) 25 mg PO BID [facility]; Protocol Last Admin: 01/16/25 08:38 Dose: 25 mg Ondansetron HCl (Ondansetron Hcl 4 Mg/2 Ml Vial) 4 mg IVPUSH Q8H PRN PRN Reason: Nausea and Vomiting Pantoprazole Sodium (Pantoprazole Sodium 40 Mg/10 Ml Vial) 40 mg IVPUSH BID@0630,1630 [facility] Last Admin: 01/19/25 05:28 Dose: 40 mg Sodium Biphosphate/Sodium Phosphate (Sodium Phosphate,[place]-Dibasic 133 Ml Enema) 118 ml [place] DAILY PRN PRN Reason: Constipation Sodium Biphosphate/Sodium Phosphate (Sodium Phosphate,[place]-Dibasic 133 Ml Enema) 133 ml [place] ONCE PRN PRN Reason: Consult order Sodium Chloride (0.9 % Sodium Chloride Flush 3 Ml Syringe) 3 ml IVFLUSH QSHIFT [facility] Last Admin: 01/19/25 07:25 Dose: 3 ml Home Medications ?Medication ?Instructions ?Recorded ?Confirmed ?Last Taken ?Type brimonidine 0.2 % eye drops 1 drp ophthalmic (eye) TID macular 04/17/23 01/15/25 Unknown History degeneration aspirin 81 mg capsule 81 mg PO DAILY 07/30/24 01/15/25 1 Day Ago History ~12/27/24 rosuvastatin 20 mg tablet 20 mg PO BEDTIME 08/27/24 01/15/25 1 Day Ago History ~12/27/24 acetaminophen 325 mg tablet 975 mg PO TID 01/15/25 01/15/25 Unknown History magnesium hydroxide 400 mg/5 mL 30 ml PO DAILY PRN Constipation 01/15/25 01/15/25 Unknown History oral suspension (Milk of Magnesia) pantoprazole 40 mg tablet,delayed 40 mg PO DAILY@199901/15/25 01/15/25 Unknown History release sodium phosphates 19 gram-7 118 ml [place] DAILY PRN Constipation 01/15/25 01/15/25 Unknown History gram/118 mL enema (Fleet Enema) Exam Exam Date and Time: january 19 2025 Height,Weight and Vital Signs: Height 5 ft 2 in Weight 71.5 kg Last Vital Signs Temp 99.2 F 01/19/25 07:56 Pulse 117 H 01/19/25 07:56 Resp 16 01/19/25 07:56 BP 145/61 H 01/19/25 07:56 Pulse Ox 97 01/19/25 07:56 O2 Del Method Nasal Cannula 01/19/25 07:56 O2 Flow Rate 2 01/19/25 07:56 Oxygen Flow Rate 2 01/15/25 11:16 Pertinent Lab Results Pertinent Lab Results: Laboratory Tests 01/15/25 01/15/25 01/15/25 11:33 11:37 23:43 WBC 10.6 11.8 H RBC 2.53 L D 3.40 L D Hgb 5.3 L* D 8.0 L D Hct 19.7 L* D 26.8 L D MCV 77.9 L 78.8 L MCH 20.9 L 23.5 L MCHC 26.9 L 29.9 L RDW 21.9 H 19.0 H Plt Count 448 H D 407 H MPV 10.9 10.4 Immature Gran % (Auto) 0.9 H 0.9 H Neut % (Auto) 76.2 H 76.2 H Lymph % (Auto) 14.4 L 13.4 L [place] % (Auto) 6.9 7.7 Eos % (Auto) 1.0 1.4 Baso % (Auto) 0.6 0.4 Lymph # (Auto) 1.5 1.6 [place] # (Auto) 0.7 0.9 Eos # (Auto) 0.1 0.2 Baso # (Auto) 0.1 0.1 Abs Immat Gran (auto) 0.10 H 0.10 H Absolute Neuts (auto) 8.1 9.0 H Absolute Nucleated RBC 0.420 H 0.380 H Nucleated RBC % (auto) 4.0 H 3.2 H Smear Path Review SEE NOTE Absolute Retic Percent Retic Immature Retic Fraction Retic Hgb Equivalent PT 23.2 H D INR 2.0 H Sodium 136 Potassium 5.2 H D Chloride 107 Carbon Dioxide 20 L Anion Gap 14 BUN 61 H Creatinine 2.95 H Estim Creat Clear Calc 11.7 Estimated GFR 15 Random Glucose 138 H Lactic Acid Calcium 9.1 Magnesium 2.4 Iron TIBC % Saturation Unsat Iron Binding Ferritin Total Bilirubin 0.8 Direct Bilirubin 0.3 AST 176 H ALT 167 H Alkaline Phosphatase 110 Lactate Dehydrogenase B-Natriuretic Peptide 901 H Total Protein 6.6 Albumin 3.3 L Lipase 28 Vitamin B12 Folate Urine Color Yellow Urine Appearance Cloudy Urine pH 5.5 Ur Specific [place] 1.015 Urine Protein 300 (3+) H Urine Glucose (UA) Negative Urine Ketones Negative Urine Blood Moderate (2+) H Urine Nitrite Negative Ur Leukocyte Esterase Moderate (2+) H Urine RBC 3-5 H Urine WBC 6-10 Ur Squamous Epith Cells 0-2 Urine Bacteria 1+ Hyaline Casts 3-5 Urine Yeast Present Stool Occult Blood POSITIVE Blood Type A Positive Antibody Screen NEGATIVE Crossmatch See Detail 01/16/25 01/16/25 01/16/25 06:24 14:24 14:25 WBC 9.4 RBC 3.11 L Hgb 7.3 L 8.4 L Hct 24.7 L 28.0 L MCV 79.4 L MCH 23.5 L MCHC 29.6 L RDW 19.3 H Plt Count 375 MPV 10.3 Immature Gran % (Auto) 0.9 H Neut % (Auto) 78.3 H Lymph % (Auto) 12.0 L [place] % (Auto) 6.6 Eos % (Auto) 1.7 Baso % (Auto) 0.5 Lymph # (Auto) 1.1 L [place] # (Auto) 0.6 Eos # (Auto) 0.2 Baso # (Auto) 0.1 Abs Immat Gran (auto) 0.08 H Absolute Neuts (auto) 7.3 Absolute Nucleated RBC 0.420 H Nucleated RBC % (auto) 4.5 H Smear Path Review Absolute Retic 0.044 Percent Retic 1.4 Immature Retic Fraction 7.4 Retic Hgb Equivalent 17.0 L PT INR Sodium 139 138 Potassium 3.9 D 4.3 Chloride 108 108 Carbon Dioxide 23 22 Anion Gap 12 12 BUN 57 H 54 H Creatinine 2.81 H 2.58 H Estim Creat Clear Calc 12.2 13.3 Estimated GFR 16 17 Random Glucose 106 102 Lactic Acid 1.4 Calcium 8.9 8.9 Magnesium Iron 85 TIBC 292 % Saturation 29 Unsat Iron Binding 207 Ferritin 28 Total Bilirubin 2.5 H Direct Bilirubin 0.9 H AST 85 H ALT 104 H Alkaline Phosphatase 87 Lactate Dehydrogenase 346 H B-Natriuretic Peptide 905 H Total Protein 5.6 L Albumin 2.8 L Lipase Vitamin B12 Folate Urine Color Urine Appearance Urine pH Ur Specific [place] Urine Protein Urine Glucose (UA) Urine Ketones Urine Blood Urine Nitrite Ur Leukocyte Esterase Urine RBC Urine WBC Ur Squamous Epith Cells Urine Bacteria Hyaline Casts Urine Yeast Stool Occult Blood Blood Type Antibody Screen Crossmatch 01/17/25 01/18/25 01/19/25 06:50 06:00 05:43 WBC 11.4 H 9.7 13.3 H RBC 3.26 L 3.13 L 4.02 L D Hgb 7.9 L 7.5 L 10.1 L D Hct 26.4 L 25.9 L 33.7 L D MCV 81.0 82.7 83.8 MCH 24.2 L 24.0 L 25.1 L MCHC 29.9 L 29.0 L 30.0 L RDW 19.6 H 20.5 H 19.9 H Plt Count 394 356 373 MPV 10.5 9.9 10.0 Immature Gran % (Auto) 0.6 H 0.5 H Neut % (Auto) 73.4 H 86.8 H Lymph % (Auto) 15.3 L 6.5 L [place] % (Auto) 7.8 4.7 Eos % (Auto) 2.5 1.1 Baso % (Auto) 0.4 0.4 Lymph # (Auto) 1.5 0.9 L [place] # (Auto) 0.8 0.6 Eos # (Auto) 0.2 0.1 Baso # (Auto) 0.0 0.1 Abs Immat Gran (auto) 0.06 H 0.06 H Absolute Neuts (auto) 7.1 11.5 H Absolute Nucleated RBC 0.190 H 0.070 H 0.040 H Nucleated RBC % (auto) 1.7 H 0.7 H 0.3 H Smear Path Review Absolute Retic Percent Retic Immature Retic Fraction Retic Hgb Equivalent PT 11.7 D INR 1.0 Sodium 140 139 Potassium 3.5 3.4 Chloride 108 109 H Carbon Dioxide 23 24 Anion Gap 13 9 L BUN 50 H 41 H Creatinine 2.46 H 1.94 H Estim Creat Clear Calc 14.3 18.2 Estimated GFR 18 24 Random Glucose 87 95 Lactic Acid Calcium 8.8 8.5 Magnesium 2.1 Iron TIBC % Saturation Unsat Iron Binding Ferritin Total Bilirubin 1.3 H Direct Bilirubin AST 50 H ALT 76 H Alkaline Phosphatase 90 Lactate Dehydrogenase B-Natriuretic Peptide 710 H Total Protein 5.9 L Albumin 3.0 L Lipase Vitamin B12 1115 H Folate 3.8 L Urine Color Urine Appearance Urine pH Ur Specific [place] Urine Protein Urine Glucose (UA) Urine Ketones Urine Blood Urine Nitrite Ur Leukocyte Esterase Urine RBC Urine WBC Ur Squamous Epith Cells Urine Bacteria Hyaline Casts Urine Yeast Stool Occult Blood Blood Type Antibody Screen Crossmatch 01/19/25 05:44 WBC RBC Hgb Hct MCV MCH MCHC RDW Plt Count MPV Immature Gran % (Auto) Neut % (Auto) Lymph % (Auto) [place] % (Auto) Eos % (Auto) Baso % (Auto) Lymph # (Auto) [place] # (Auto) Eos # (Auto) Baso # (Auto) Abs Immat Gran (auto) Absolute Neuts (auto) Absolute Nucleated RBC Nucleated RBC % (auto) Smear Path Review Absolute Retic Percent Retic Immature Retic Fraction Retic Hgb Equivalent PT INR Sodium 141 Potassium 3.6 Chloride 108 Carbon Dioxide 26 Anion Gap 11 L BUN 31 H Creatinine 1.63 H Estim Creat Clear Calc 21.6 Estimated GFR 30 Random Glucose 93 Lactic Acid Calcium 9.1 D Magnesium Iron TIBC % Saturation Unsat Iron Binding Ferritin Total Bilirubin Direct Bilirubin AST ALT Alkaline Phosphatase Lactate Dehydrogenase B-Natriuretic Peptide Total Protein Albumin Lipase Vitamin B12 Folate Urine Color Urine Appearance Urine pH Ur Specific [place] Urine Protein Urine Glucose (UA) Urine Ketones Urine Blood Urine Nitrite Ur Leukocyte Esterase Urine RBC Urine WBC Ur Squamous Epith Cells Urine Bacteria Hyaline Casts Urine Yeast Stool Occult Blood Blood Type Antibody Screen Crossmatch Airway Mallampati Class: II TM Dist: >3cm Neck ROM: Limited Heart: rrr Lungs: cta Assessment and Plan Final Anesthetic Review Family History of Problems with Anesthesia: No History of Problems with Anesthesia: No ASA Class: IV Final Preanesthetic Review: No Changes in Pt Med Stat, Meds/Allgs Chart Reviewed, Consent Obtained/Reviewed, Anes Risks/Benef Reviewed and DNR Form (If Appl.) Patient Risk: High Procedure Risk: Low Anesthetic Plan Anesthetic Plan: MAC: Disposition: Standard PACU
--- NOTE | 2025-01-19 09:27 | P.OPN-COLO_ITS ---
Colonoscopy Operative Note Operative Note Date of Service: 01/19/25 Narrative: Operative Information Procedure Description: EGD, Colonoscopy Indication: anemia Anesthesia: MAC FLEXIBLE TRANSORAL UPPER GASTROINTESTINAL ENDOSCOPY AND COLONOSCOPY PROCEDURE NOTE UPPER ENDOSCOPY Consent: Indications for the procedure and potential complications of bleeding, perforation, reaction to medications and missed diagnosis were discussed with the patient and informed consent was obtained. Instrument: Olympus GIF H 190 J mid size upper endoscope Monitoring: Vital signs and clinical assessment, continuous EKG monitoring, Pulse oximetry, Carbon Dioxide monitoring and blood pressure monitoring were done throughout the procedure. Procedure: The patient was placed in the left lateral decubitis position and pre-procedure medications were administered and a bite block was placed. The endoscope was inserted into the mouth and advanced under direct vision to the third part of duodenum. A careful inspection was made as the upper endoscope was withdrawn including a retroflexed examination of the proximal stomach; Findings and interventions are described below. Findings: Larynx:normal Esophagus: GE junction at 40 cm, diaphragm hiatus at 42 cm, schatzki ring with mild esophagitis Stomach: Mild gastritis. Grade 2 flap valve on retroflexed examination of the cardia. Duodenum: Normal bulb and descending duodenum, Intervention: none COLONOSCOPY Instrument: Olympus variable stiffness pediatric scope 190L Colonoscopy Monitoring: Vital signs and clinical assessment, continuous EKG monitoring, Pulse oximetry, Carbon Dioxide monitoring and blood pressure monitoring were done throughout the procedure. Colon withdrawal time was 15 minutes. Procedure: The patient was placed in the left lateral decubitis position and pre-procedure medications were administered. After a digital rectal examination of the ano-rectum, the video colonoscope was inserted into the rectum and advanced through the colon to the cecum/TI. The colonoscope was slowly withdrawn in a retrograde panoramic fashion and the colon mucosa was carefully examined including a retroflexed view of the rectum. Findings and interventions are described below. Procedure Difficulty:moderate Findings: Terminal Ileum-normal Cecum: x 3 small AVM treated with APC Ascending Colon: x 2 sessile polyps 9-10 mm removed with cold snare Transverse Colon -normal Descending Colon:normal Sigmoid Colon: moderate severe diverticulosis, 10 mm sessile polyp removed with cold snare Rectum: Retroflexion with small internal hemorrhoids, grade I, 5-6 mm sessile polyp removed with cold snare Anorectum - normal Colon preparation: [place] Bowel Preparation Scale Right colon; 2 Transverse colon: 2 Left colon; 2 (0 = Unprepared colon segment with mucosa not seen due to solid stool that cannot be cleared. 1 = Portion of mucosa of the colon segment seen, but other areas of the colon segment not well seen due to staining, residual stool and/or opaque liquid. 2 = Minor amount of residual staining, small fragments of stool and/or opaque liquid, but mucosa of colon segment seen well. 3 = Entire mucosa of colon segment seen well with no residual staining, small fragments of stool or opaque liquid) Impression and Post Procedure Diagnosis: Endoscopy Findings: schatzki ring esophagitis gastritis Colonoscopy Findings: diverticulosis colon polyps internal hemorrhoids AVM Plan: Await Pathology results Repeat routine colonoscopy not recommend given age High fiber diet leaflet avoid straining at stool, epsom salts and sitz bath, anusol supps or cream commence PPI fi not taking, check H pylori stool testing and celiac serology Above findings were reviewed with the patient and relevant handouts were provided if indicated.
--- NOTE | 2025-01-19 17:18 | P.PNIM_ITS ---
Subjective Subjective Date of Service: 01/19/25 Interval History: Seen and evaluated this morning feels comfortable Hb at 10 after 1 more unit transfusion tolerated EGD well no reported melena\bleeding no other events Review of Systems Review of Systems: Yes all other systems are reviewed and are negative Physical Exam 2 Vital Signs: Vital Signs: Last Vital Signs Temp 97.6 F 01/19/25 15:13 Pulse 97 01/19/25 15:13 Resp 18 01/19/25 15:13 BP 146/60 H 01/19/25 15:13 Pulse Ox 99 01/19/25 15:13 O2 Del Method Room Air 01/19/25 15:13 O2 Flow Rate 3 01/19/25 11:31 Oxygen Flow Rate 2 01/15/25 11:16 BMI result Body Mass Index 28.8 Const: Other: Constitutional : interactive, not in distress, frail looking Cardiovascular : no JVP, no lower extremity edema Respiratory : bilateral chest movement, not in resp distress Gastrointestinal: soft, lax, Non tender Skin : Warm, Dry vascular; RLE color improved, pulse can be felt, tip of grt toe bluish discoloration, mild sensation def., good motor Neurological : Alert & oriented , No focal deficit Objective Data Active Medications Acetaminophen (Acetaminophen 325 Mg Tablet) 650 mg PO Q6H PRN PRN Reason: Pain, Mild 1-3,fever,headache Last Admin: 01/17/25 16:14 Dose: 650 mg Documented By: BORIS Brimonidine Tartrate (Brimonidine Tartrate 0.2% Oph 5 Ml Bottle) 1 drop EYE- BOTH TID [facility] Last Admin: 01/19/25 07:25 Dose: 1 drop Documented By: GABY Calcium Carbonate (Calcium Carbonate 750 Mg Tab.Chew) 750 mg PO Q4H PRN PRN Reason: Heartburn Docusate Sodium (Docusate Sodium 100 Mg Capsule) 100 mg PO BID [facility] Last Admin: 01/19/25 07:25 Dose: 100 mg Documented By: GABY Lactated Ringer's (Lr) 1,000 mls @ 80 mls/hr IVCONT .[id number] [facility] Last Admin: 01/19/25 10:52 Dose: Not Given Documented By: GABY Non-Admin Reason: per D/C Magnesium Hydroxide (Milk Of Magnesia 30 Ml Oral.Susp) 30 ml PO DAILY PRN PRN Reason: Constipation Magnesium Oxide (Magnesium Oxide 400 Mg Tablet) 400 mg PO DAILY [facility] Last Admin: 01/19/25 07:25 Dose: 400 mg Documented By: GABY Melatonin (Melatonin 3 Mg Tablet) 3 mg PO BEDTIME PRN PRN Reason: Insomnia Metoprolol Succinate (Metoprolol Succinate Er 25 Mg Tab.Er.24h) 25 mg PO BID [facility]; Protocol Last Admin: 01/16/25 08:38 Dose: 25 mg Documented By: KIRBY Ondansetron HCl (Ondansetron Hcl 4 Mg/2 Ml Vial) 4 mg IVPUSH Q8H PRN PRN Reason: Nausea and Vomiting Pantoprazole Sodium (Pantoprazole Sodium 40 Mg/10 Ml Vial) 40 mg IVPUSH BID@0630,1630 [facility] Last Admin: 01/19/25 05:28 Dose: 40 mg Documented By: BREANA Sodium Biphosphate/Sodium Phosphate (Sodium Phosphate,[place]-Dibasic 133 Ml Enema) 118 ml NC DAILY PRN PRN Reason: Constipation Sodium Biphosphate/Sodium Phosphate (Sodium Phosphate,[place]-Dibasic 133 Ml Enema) 133 ml NC ONCE PRN PRN Reason: Consult order Sodium Chloride (0.9 % Sodium Chloride Flush 3 Ml Syringe) 3 ml IVFLUSH QSHIFT [facility] Last Admin: 01/19/25 07:25 Dose: 3 ml Documented By: GABY Labs 01/19/25 05:43 01/19/25 05:44 Labs: Laboratory Results - last 24 hr 01/19/25 01/19/25 05:43 05:44 MCV 83.8 MCH 25.1 L MCHC 30.0 L RDW 19.9 H Plt Count 373 MPV 10.0 Immature Gran % (Auto) 0.5 H Neut % (Auto) 86.8 H Lymph % (Auto) 6.5 L [place] % (Auto) 4.7 Eos % (Auto) 1.1 Baso % (Auto) 0.4 Lymph # (Auto) 0.9 L [place] # (Auto) 0.6 Eos # (Auto) 0.1 Baso # (Auto) 0.1 Abs Immat Gran (auto) 0.06 H Absolute Neuts (auto) 11.5 H Absolute Nucleated RBC 0.040 H Nucleated RBC % (auto) 0.3 H PT 11.7 D INR 1.0 Anion Gap 11 L Estim Creat Clear Calc 21.6 Estimated GFR 30 Random Glucose 93 Calcium 9.1 D Assessment and Plan (1) Acute blood loss anemia: Status: Acute (2) Acute on chronic anemia: Status: Acute (3) NEEL (acute kidney injury): Status: Acute Plan d2 for 89yo F with COPD, AF on apixaban, PVD on DAPT, HFrEF with cardiorenal syndrome, recent admission here for septic shock from Pseudomonas UTI, sent to [facility] for STR but sent in with severe anemia, Hb 9->4.8. FOBT positive. acute blood loss anemia due to GI blood loss Hb stable after 4 units transfusion, improved to 10 GI consult, EGD and Colonoscopy done showing; schatzki ring, esophagitis, gastritis,diverticulosis , colon polyps, internal hemorrhoids, AVM. No active bleeding noticed. IV PPI HOLD apixaban + ASA + clopidogrel; to restart only Eliquis after discussing with Vascular surgery and GI. recheck CBC NEEL, prerenal vs cardiorenal improving to 1.6 (maxed 2.9) from 1 at baseline hold furosemide, recheck BMP chronic biventricular HF monitor carefully for signs of volume overload TTE 12/30/24: Moderately reduced LV ejection fraction of 35-40% continue metoprolol succinate Cardiology consult for clearance for surgery HTN hold amlodipine, continue metoprolol succinate transaminasemia likely due to decreased perfusion from anemia; improving COPD with chronic hypoxic resp failure continue 2L O2 as at baseline urinary retention chronic Fajardo HLD hold statin due to transaminasemia VTE ppx SCDs In my clinical judgment, the patient requires continued inpatient hospitalization for the following reasons: NEEL, monitoring blood level and starting blood thinners Quality Stroke Does the patient have a stroke diagnosis?: No VTE Prior VTE?: No VTE Risk Level:: Medical - moderate - high VTE Device Contraindication: N/A - Device Ordered VTE Drug Contraindication: Treatment Not Indicated
[2025-01-20] VITALS (7 sets, daily range): BP systolic 95–132; BP diastolic 51–58; PULSE 80–109; RESP 18; TEMP 36.2–37.1; O2SAT 96–97
[2025-01-20] MEDS: Acetaminophen 325 MG TABLET 650 MG PO ×2 (03:15→09:01)
[2025-01-20] MEDS: Pantoprazole Sodium 40 MG/10 ML VIAL IVPUSH ×2 (05:04→15:57)
[2025-01-20 07:07] LABS: MANUAL DIFF FLAG NO
[2025-01-20 07:18] LABS: Basophils Absolute Auto 0.1 X10*3/uL (0.0-0.2); Basophils Percent Auto 0.4 % (0-2); Eosinophils Absolute Auto 0.1 X10*3/uL (0.0-0.4); Eosinophils Percent Auto 0.6 % (0-4); Hematocrit 28.5 % (37.0-47.0); Hemoglobin 8.7 g/dl (12.0-16.0); Imm Gran Abs Auto 0.09 X10*3/uL (0.00-0.03); Imm Gran Pct Auto 0.7 % (0.0-0.4); Lymphocytes Absolute Auto 1.1 X10*3/uL (1.2-4.9); Mean Corpuscular HGB Conc 30.5 g/dl (31.0-35.0); Mean Corpuscular Hemoglobin 25.3 pg (27.0-33.0); Mean Corpuscular Volume 82.8 fL (80.0-98.0); Mean Platelet Volume 9.8 fL (9.4-12.3); Monocytes Percent Auto 7.2 % (2-11); NRBC Pct Auto 0.1 /100WBC (0.0-0.2); Neutrophils Absolute Auto 11.3 x10*3/uL (2.0-8.3); Neutrophils Percent Auto 83.1 % (45-73); Platelet Count 287 X10*3/uL (160-400); Red Blood Count 3.44 X10*6/uL (4.20-5.50); Red Cell Distribution Width 20.6 % (11.0-16.0); White Blood Count 13.6 X10*3/uL (4.8-10.8)
[2025-01-20] MEDS: 0.9 % Sodium Chloride 500 ML IV ×2 (07:51→09:01)
[2025-01-20] MEDS: 0.9 % Sodium Chloride Flush 3 ML SYRINGE IVFLUSH ×2 (07:52→16:01)
[2025-01-20] MEDS: Magnesium Oxide 400 MG TABLET PO (07:54)
[2025-01-20] MEDS: Brimonidine Tartrate 0.2% Oph 5 ML BOTTLE 1 DROP EYE-BOTH ×2 (07:54→15:59)
[2025-01-20] MEDS: Docusate Sodium 100 MG CAPSULE PO (07:54)
--- NOTE | 2025-01-20 09:39 | HO.POSTANES ---
Post Anesthesia Evaluation Post Anesthesia Evaluation Date of Service: 01/20/25 Vital Signs: Vital Signs Temp Pulse Resp BP Pulse Ox O2 Del Method O2 Flow Rate 01/20/25 07:19 98.4 F 101 H 18 95/51 L 96 Nasal Cannula 2 01/20/25 03:46 98.8 F 107 H 18 132/58 L 96 Nasal Cannula 2 01/19/25 23:32 98.3 F 91 18 146/61 H 97 Nasal Cannula 2 Anesthesia: Monitored Mental Status: Awake Pain Control: Satisfactory Nausea/Vomiting: None Hydration: Adequate Anesthesia-Related Issues: No Anes. Related Issues
[2025-01-20] MEDS: Metoprolol Succinate ER 25 MG TAB.ER.24H PO (10:30)
[2025-01-20] MEDS: Metoprolol Tartrate 5 MG/5 ML VIAL 2.5 MG IVPUSH (10:31)
--- NOTE | 2025-01-20 11:53 | MHC.CM.PN ---
Per ROUNDS discussion, Patient may be medically cleared to return to STR soon; CM will continue to follow.
--- NOTE | 2025-01-20 11:58 | PM.DS ---
DS: Providers Provider Date of Service: 01/20/25 Date of admission: 01/15/25 13:35 Date of discharge: 01/20/25 Primary care physician: Irving Meneses MD Consults: 01/16/25 08:23 Consult to Gastroenterology Routine Consulting Provider: [facility] Reason for consultation: anemia FOBT+ was on Eliquis/ASA/Plavix 01/16/25 13:38 Consult to Cardiology Routine Consulting Provider: [facility] Reason for consultation: EGD/C-scope clearance. High risk due to CHF DS: Diagnosis Discharge Diagnosis (1) Acute blood loss anemia: Status: Acute (2) Acute on chronic anemia: Status: Acute (3) NEEL (acute kidney injury): Status: Acute (4) Weakness: Status: Acute (5) GI bleed: Status: Acute DS: Summary Hospital Course Hospital Course: Admission note HPI 89-year-old female with past medical history of oxygen-dependent COPD, 2 L at baseline history of AFib on Eliquis and aspirin daily, history of cardiorenal syndrome, congestive heart failure with the EF of 40%, hypertension, iron deficiency anemia was sent to the ED after routine labwork demonstrated hemoglobin of 4.8. Patient is very hard of hearing Patient was recently admitted from December 27 through the with urosepsis and CHF exacerbation. She is currently a patient at [facility]. On admission to the ER she was found to have a repeat hemoglobin of 5.3, BUN creatinine elevated from baseline of 1-1.2, and transaminitis. GI was consulted, Dr. Rodas to follow. An EKG demonstrates known AFib, no evidence of ischemic changes. Chest x-ray demonstrates cardiomegaly, pulmonary vascular congestion and small bilateral pleural effusions. On exam she is awake and alert, denies any discomfort, shortness of breath, chest pain, dizziness or any other concerning symptoms. Patient is here in the ED, 1st unit of blood infusing. Hospital course The patient was admitted for evaluation of acute blood loss anemia due to GI blood loss as she Hemoglobin of 5 on presentation now stable after 4 units transfusion, improved to 10. GI consulted and did EGD and Colonoscopy done showing; schatzki ring, esophagitis, gastritis,diverticulosis , colon polyps, internal hemorrhoids, AVM. No active bleeding noticed. She was kept on IV PPI and Held apixaban + ASA + clopidogrel. Discussed with Vascular surg to restart only Eliquis after discussing with Vascular surgery and GI. recheck CBC Developed Acute kidney injury which improved during hospital stay. improving to 1.6 (maxed 2.9) from 1 at baseline. hold furosemide, recheck BMP Restart Metoprolol 25 mg bid XL for now starting tonight. Hold Amlodipine as blood pressure runs soft. Monitor for next week. Fajardo catheter placed for urine retention. to do void trial at [facility] and remove the Catheter. Discharge plan Discontinue Aspirin and Plavix Continue Eliquis only Pantoprazole two times a day Follow with Vascular surgery as outpatient for right lower extremity evaluation Time Attestation Discharge Coordination Time (in mins): 43 Quality: Safe Use of Opioids Does Pt have an Active Cancer Diagnosis on the Problem List?: No Quality: Stroke Does the patient have a stroke diagnosis?: No Physical Exam Vital Signs: Vital Signs: Last Vital Signs Temp 98.4 F 01/20/25 10:59 Pulse 109 H 01/20/25 10:28 Resp 18 01/20/25 10:59 BP 119/55 L 01/20/25 10:28 Pulse Ox 97 01/20/25 10:59 O2 Del Method Nasal Cannula 01/20/25 10:59 O2 Flow Rate 2 01/20/25 10:59 Oxygen Flow Rate 2 01/15/25 11:16 BMI result Body Mass Index 28.8 Const: Other: Constitutional : interactive, not in distress, frail looking Cardiovascular : no JVP, no lower extremity edema Respiratory : bilateral chest movement, not in resp distress Gastrointestinal: soft, lax, Non tender Skin : Warm, Dry vascular; RLE color improved, pulse felt, tip of great toe mild bluish discoloration, mild sensation def., good motor Neurological : Alert & oriented , No focal deficit DS: Data Data Completed and Pending Completed studies during hospitalization [Text1]: Pending at discharge 01/19/25 09:10 Surgical [PTH] Routine Procedures Assistance with Respiratory Ventilation, Less than 24 Consecutive Hours, Continuous Positive Airway Pressure (08/27/24) Extirpation of Matter from Left Lower Leg Subcutaneous Tissue and Fascia, Open Approach (03/27/22) Introduction of Remdesivir Anti-infective into Peripheral Vein, Percutaneous Approach, [employer] (01/01/24) Introduction of Vasopressor into Peripheral Vein, Percutaneous Approach (12/27/24) Repair Left Upper Leg Tendon, Open Approach (03/27/22) Replacement of Left Knee Joint with Synthetic Substitute, Uncemented, Open Approach (02/06/22) Reposition Left Patella with Internal Fixation Device, Open Approach (03/27/22) Labs on day of discharge: Laboratory Results - last 24 hr 01/20/25 06:33 WBC 13.6 H RBC 3.44 L Hgb 8.7 L Hct 28.5 L MCV 82.8 MCH 25.3 L MCHC 30.5 L RDW 20.6 H Plt Count 287 MPV 9.8 Immature Gran % (Auto) 0.7 H Neut % (Auto) 83.1 H Lymph % (Auto) 8.0 L [place] % (Auto) 7.2 Eos % (Auto) 0.6 Baso % (Auto) 0.4 Lymph # (Auto) 1.1 L [place] # (Auto) 1.0 Eos # (Auto) 0.1 Baso # (Auto) 0.1 Abs Immat Gran (auto) 0.09 H Absolute Neuts (auto) 11.3 H Absolute Nucleated RBC 0.020 H Nucleated RBC % (auto) 0.[address] scan - abdomen: Radiologist's impression: ITS Impressions Chest X-Ray 01/15/25 11:27 IMPRESSION: Cardiomegaly, pulmonary vascular congestion, and small bilateral pleural effusions. Electronically signed by: Phan Arias MD 01/15/2025 12:22 PM EDT RP Discharge Plan Discharge Anticipated Discharge Date/Time: 01/20/25 11:54 Patient Disposition: Xfer SNF Discharge Diagnosis: acute blood loss anemia Referrals: [facility] [Outside] - 1 Week Irving Meneses MD [Primary Care Provider] - 1 Week Discharge Medications: Continued (DME) Raised Toliet Seat with handels See Rx Instructions .ROUTE .MEDSUPPLY Qty: 1 0RF Rx Instructions: As directed Osteoarthritis (DME) blood pressure monitor [Blood Pressure Kit] Kit See Rx Instructions .Route Qty: 1 0RF Rx Instructions: As directed (DME) ROLLATOR See Rx Instructions .Route .MEDSUPPLY Qty: 1 0RF Rx Instructions: As directed (DME) Orthpedic Shoes See Rx Instructions .Route .MEDSUPPLY Qty: 1 0RF Rx Instructions: As directed (DME) Depend Underwear For Women XL Misc See Rx Instructions .Route Qty: 68 0RF Rx Instructions: To be changed 6 to 8 times a day due to overactive bladder. (DME) adult pull ups/ Extra large XL See Rx Instructions .Route .MEDSUPPLY Qty: 1 3RF Rx Instructions: As directed (DME) wipes See Rx Instructions .Route .MEDSUPPLY Qty: 5 3RF Rx Instructions: As directed (DME) Portable ramp See Rx Instructions .Route .MEDSUPPLY Qty: 1 0RF Rx Instructions: As directed (DME) wheel chair See Rx Instructions .Route .MEDSUPPLY Qty: 1 0RF Rx Instructions: As directed apixaban 2.5 mg tablet 2.5 mg PO BID Qty: 60 5RF metoprolol succinate 25 mg tablet extended release 24 hr 25 mg PO BID Qty: 60 2RF Protocol: Hold for SBP/HR < HOLD for SBP < : 90 HOLD for HR < : 60 potassium chloride 20 mEq tablet,ER particles/crystals 20 meq PO DAILY 90 Days Qty: 90 0RF diclofenac sodium 1 % gel 4 g topical QID PRN (Reason: for pain) Qty: 100 0RF furosemide 40 mg tablet 40 mg PO DAILY Qty: 30 2RF Protocol: Hold for SBP< HOLD for SBP < : 90 [place] 75 mg tablet 75 mg PO DAILY Qty: 90 0RF magnesium oxide 400 mg (241.3 mg magnesium) Tablet 400 mg PO DAILY Qty: 90 0RF rosuvastatin 20 mg tablet 20 mg PO BEDTIME acetaminophen 325 mg Tablet 975 mg PO TID magnesium hydroxide [Milk of Magnesia] 400 mg/5 mL Suspension 30 ml PO DAILY PRN (Reason: Constipation) Rx Instructions: For no BM in 3 days Fleet Enema 19-7 gram/118 mL Enema 118 ml [place] DAILY PRN (Reason: Constipation) Rx Instructions: If Dulcolax supp. not effective (DME) RECLINER LIFT CHAIR RECLINER LIFT CHAIR See Rx Instructions .Route .MEDSUPPLY Qty: 1 0RF Rx Instructions: use as directed; brimonidine 0.2 % drops 1 drp ophthalmic (eye) TID Rx Instructions: both eyes Changed pantoprazole 40 mg tablet,delayed release (DR/EC) 40 mg PO BID Qty: 60 0RF Held amlodipine 10 mg tablet 10 mg PO DAILY Qty: 90 3RF Hold Instructions: Monitor BP at facility to see if need to be restarted or discontinued Discontinued clopidogrel 75 mg Tablet 75 mg PO DAILY Qty: 90 0RF aspirin 81 mg capsule 81 mg PO DAILY Discharge Orders: Discharge Order (Routine); Ordered 01/20/25 Ordered By: Sue Manriquez Diet: Advance to usual diet Activity on Discharge: As tolerated Stand Alone Forms: Patient Portal Discharge page Print Language: Japanese Care Plan Goals: Discontinue Aspirin and Plavix Continue Eliquis only Pantoprazole two times a day Follow with Vascular surgery as outpatient for right lower extremity evaluation Health Concerns: Blood loss anemia GI bleed Plan of Treatment: Discontinue Aspirin and Plavix Increase Pantoprazole Assessment: as above Patient Instructions: Blood Transfusion Discharge Instructions
--- NOTE | 2025-01-20 13:10 | MHC.CM.PN ---
Per MD, Patient is medically cleared for dc to return to [facility] today at 5PM, via [facility]. CM met with Patient at bedside and addressed IMM with her, providing Patient with the original and a copy has been placed on the chart. CM left a detailed message for Daughter/HCP/Gianna @ [phone], informing her of the dc plan.
[2025-01-20] MEDS: Midodrine HCl 2.5 MG TABLET PO (13:59)
[2025-01-20] MEDS: Metoprolol Tartrate 25 MG TABLET PO (15:58)
--- NOTE | 2025-01-20 18:28 | PC.NURSE ---
Fajardo catheter removed at 1700. Pt transferred to [facility] . Call facility multiple times to give RN to RN report, unable to reach a nurse . Report given to golf club head inspector and adjuster.
== END 2025-01-20 18:38 | disposition skilled nursing facility (03) | DRG 377 ==
LOC: HO.ED 12:31 → HO.EDOVER 13:40 → HO.IMC 01-16 14:19
PROVIDERS: Family Medicine; Nurse Practitioner Family; Admitting Provider Internal Medicine Gastroenterology; Emergency Provider Emergency Medicine; PCP Internal Medicine; Visit Provider Student in an Organized Health Care Education/Training Program
PROC: 0D5H8ZZ Destruction of Cecum, Via Natural or Artificial Opening Endoscopic (ICD-10-PCS; principal; 2025-01-19 07:30)
DX: K55.21 Angiodysplasia of colon with hemorrhage (principal); K20.91 Esophagitis, unspecified with bleeding; D62 Acute posthemorrhagic anemia; I50.22 Chronic systolic (congestive) heart failure; I13.0 Hypertensive heart and chronic kidney disease with heart failure and stage 1 through stage 4 chronic kidney disease, or unspecified chronic kidney disease; N17.9 Acute kidney failure, unspecified; J96.11 Chronic respiratory failure with hypoxia; K57.31 Diverticulosis of large intestine without perforation or abscess with bleeding; I48.91 Unspecified atrial fibrillation; I50.82 Biventricular heart failure; Z66 Do not resuscitate; D12.2 Benign neoplasm of ascending colon; K29.71 Gastritis, unspecified, with bleeding; K62.1 Rectal polyp; K22.2 Esophageal obstruction; K64.0 First degree hemorrhoids; D12.5 Benign neoplasm of sigmoid colon; N18.9 Chronic kidney disease, unspecified; I25.10 Atherosclerotic heart disease of native coronary artery without angina pectoris; J44.9 Chronic obstructive pulmonary disease, unspecified; R33.9 Retention of urine, unspecified; Z99.81 Dependence on supplemental oxygen; Z79.01 Long term (current) use of anticoagulants; Z79.02 Long term (current) use of antithrombotics/antiplatelets; Z79.82 Long term (current) use of aspirin; Z79.899 Other long term (current) drug therapy
CPT/HCPCS: 36415; 71045; 80048; 80053; 80076; 81001; 81003; 82248; 82272; 82607; 82728; 82746; 83540; 83605; 83615; 83690; 83735; 83880; 85014; 85018; 85025; 85027; 85045; 85610; 86850; 86900; 86901; 86923; 87086; 88305; 93005; 99285; C1889; J1938; J2470; J2704; J3430; P9016

== ENCOUNTER → 2025-01-15 11:27 | Outpatient (BNV) | payer MEDICARE, MEDICAID, SELFPAY | PROVIDERS: Emergency Provider Emergency Medicine; PCP Internal Medicine; Visit Provider Radiology Diagnostic Radiology | DX: I51.7 Cardiomegaly (principal); J90 Pleural effusion, not elsewhere classified; J81.0 Acute pulmonary edema | CPT/HCPCS: 71045 ==

== ENCOUNTER → 2025-01-15 11:27 | Outpatient (BNV) | payer MEDICARE, MEDICAID, SELFPAY | PROVIDERS: Admitting Provider Student in an Organized Health Care Education/Training Program; Emergency Provider Emergency Medicine; PCP Internal Medicine; Visit Provider Internal Medicine Cardiovascular Disease | DX: I48.91 Unspecified atrial fibrillation (principal) | CPT/HCPCS: 93010 ==

== ENCOUNTER → 2025-01-15 13:35 | Outpatient (BNV) | payer MEDICARE, MEDICAID, SELFPAY | PROVIDERS: Admitting Provider Student in an Organized Health Care Education/Training Program; Emergency Provider Emergency Medicine; PCP Internal Medicine; Visit Provider Nurse Practitioner Family | DX: D62 Acute posthemorrhagic anemia (principal); N17.9 Acute kidney failure, unspecified | CPT/HCPCS: 99222; 99232; 99239 ==

== ENCOUNTER → 2025-01-15 13:35 | Outpatient (BNV) | payer MEDICARE, MEDICAID, SELFPAY | PROVIDERS: Admitting Provider Student in an Organized Health Care Education/Training Program; Emergency Provider Emergency Medicine; PCP Internal Medicine; Visit Provider Internal Medicine Gastroenterology | DX: D62 Acute posthemorrhagic anemia (principal); K20.90 Esophagitis, unspecified without bleeding; K22.2 Esophageal obstruction; K29.70 Gastritis, unspecified, without bleeding; D12.2 Benign neoplasm of ascending colon; D12.5 Benign neoplasm of sigmoid colon; D12.8 Benign neoplasm of rectum; K57.30 Diverticulosis of large intestine without perforation or abscess without bleeding; K64.0 First degree hemorrhoids; K55.21 Angiodysplasia of colon with hemorrhage | CPT/HCPCS: 43235; 45382; 45385; 99232 ==

== ENCOUNTER → 2025-01-15 13:35 | Outpatient (BNV) | payer MEDICARE, MEDICAID, SELFPAY | PROVIDERS: Admitting Provider Student in an Organized Health Care Education/Training Program; Emergency Provider Emergency Medicine; PCP Internal Medicine; Visit Provider Internal Medicine Cardiovascular Disease | DX: Z01.810 Encounter for preprocedural cardiovascular examination (principal) | CPT/HCPCS: 99222 ==

== ENCOUNTER 2025-01-28 10:29 | Outpatient (AMB) | payer MEDICARE, MEDICAID, SELFPAY ==
--- NOTE | 2025-01-28 10:34 | A.OFFVIS_ITS ---
Intake Visit Reasons: Hosp follow up PAD Intake Note: HOspital follow up PAD s/p arterial US 12/27/24. Right foot discoloration Emergency Department Director Required: No Accompanied by: ambulance drivers Allergies atorvastatin Adverse Reaction (Intermediate, Verified 01/28/25 10:38) myalgias HPI HPI Hosp follow up PAD: Details: Jaki is presenting today from a SNF, where she is residing for short term rehab, for concerns of findings of PAD while she was admitted last month. She was found to have discoloration with decreased pulses in the right foot. Due to multiple comorbidities and medical conditions at the time, we recommended a follow up outpatient. The pt states her foot feels numb most of the time. aluminum sheet cutter, who transported her, state she is non-ambulatory at baseline at the SNF. The pt denies any pain in the foot. She has no concerns today. She does appear confused at baseline as well. [facility] Medical History (Updated 01/28/25 @ 10:56 by Gianna Roger PA-C) PAD (peripheral artery disease) Cholelithiasis CHF (congestive heart failure) Falls Congestive heart failure Afib Macular degeneration Overweight (BMI 25.0-29.9) COVID-19 vaccine administered History of COVID-19 Restrictive lung disease Edema Current smoker Iron deficiency anemia Tobacco abuse Carotid bruit Obesity (BMI 30-39.9) Depression Insomnia Allergic rhinitis Elevated TSH GERD without esophagitis Impaired fasting glucose Anemia Knee osteoarthritis Vitamin D deficiency Chronic kidney disease (CKD), stage III (moderate) Pure hypercholesterolemia Benign essential hypertension Coronary artery disease Surgical History Hx of total knee arthroplasty Hx of colonoscopy Hx of cardiac cath Hx of bilateral cataract extraction History of hysterectomy Family History Father Medical history unknown Mother CVD (cardiovascular disease) Social History Household Members: Other Household Members Other:: Daughter and grandson Housing: Assisted Living Facility Are you a primary patient care representative to a significant other at home: No Do you presently have visiting nurse or other home services: No Unable to assess alcohol history related to: Unknown Alcohol intake: never Comment: aware of trip hazard Patient Tobacco Use Status: Former Tobacco user Tobacco use type: Cigarette Cigarette Packs Per Day: 1 Cigarettes Per Day: 20.0 Years Smoked: 70 e-Cigarette/Vaping Use: Never Used Second Hand Smoke Exposure: Yes service: No Current occupational status: retired and disabled Cognitive needs: No (cane/walker) Hearing needs: No Vision needs: No Review of Systems Const Reports as per HPI and Denies weakness ENT Reports Normal hearing present and Denies dizziness Card Reports as per HPI, Denies chest pain, Denies chest pain at rest, Denies chest pain with activity, Denies dyspnea and Denies dyspnea on exertion Resp Reports as per HPI, Denies cough, Denies dyspnea and Denies dyspnea on exertion GI Reports as per HPI, Denies abdominal pain, Denies nausea and Denies vomiting Musc Denies numbness Skin/Breast Reports as per HPI, Denies erythema and Denies wounds Neuro Details: Confused Hard of hearing Reports Normal hearing present, Denies dizziness, Denies numbness, Denies Sensory deficit (Neuro) and Denies weakness Psych Reports no additional complaints Endo Reports no additional complaints Physical Exam Const General: healthy appearing and no acute distress Orientation/consciousness: oriented to person and oriented to place HEENT Head: Yes normal to inspection Ears: hearing grossly normal bilaterally Mouth: Normal oral and palatal mucosa present Resp Effort & Inspection: normal respiratory effort and able to speak in complete sentences Auscultation: clear to auscultation bilaterally Cardio Jugular venous distension: no JVD Rate: regular rate Rhythm: regular rhythm Heart sounds: S1 normal heart sound present and S2 normal heart sound present Bruits: no abdominal aortic bruits, no carotid bruits, no femoral bruits and no renal bruits Peripheral pulses: Peripheral pulses 2+ throughout GI Inspection: Yes normal to inspection Palpation (GI): No Abdominal aortic bruit present Skin General skin exam: no rashes or lesions noted Wounds: no wounds Hair: normal Neuro General: oriented to person and oriented to place Cranial nerves: Yes CN's II-XII intact bilaterally and Yes Normal hearing present Cognition (Neuro): normal cognition Gait exam (Neuro): Normal gait present Motor exam (neuro): 5/5 motor strength present throughout Sensory Exam: No Sensory deficit (Neuro) Extrem Other: Right foot: no discoloration noted. Foot warm to the touch. Small ulceration scabbing over noted just below the toenail. Pt has full motor and sensation of the foot/toes. Active and passive ROM normal. General: Yes normal to inspection, Yes full ROM, Yes capillary refill normal and Yes normal gait Assessment & Plan Assessment & Plan (1) PAD (peripheral artery disease): Code(s): I73.9 - Peripheral vascular disease, unspecified Category: Medical Plan: Jaki is presenting today from the SNF, where she is at for short term rehab, for a follow up to recent hospitalization. She was found, in the hospital, to have discoloration with decreased pulses in the right foot. On arterial duplex US, it was found that she has multifocal moderate and severe stenosis with overall greatly diminished right lower extremity arterial circulation demonstrating monophasic waveforms and low peak systolic velocities throughout; findings suggest inflow stenosis as well as in situ stenosis. We recommended follow up outpatient for further evaluation and treatment options. The pt is presenting today with no discoloration, palpable DP pulses, and no concerns with the foot other than numbness. At this point, there is no acute interventions required; however, we would like to continue to monitor her. We will order a repeat US for and have her follow up with us after the US is completed. We discussed to have her follow up sooner if she has any red flag symptoms including discoloration, weakness, etc. The pt states she understands; however, I did have to repeat it for her and explain it to her several different ways. We will have her follow up in . Thank you for allowing us to participate in the patient's care. If there are any questions or concerns, please do not hesitate to reach out to us. Orders: Orders US arterial duplex LE BI 3 Months I73.9 - Peripheral vascular disease, unspecified Coding Level of Care Code Est Pt Level 4 (21553) Diagnoses PAD (peripheral artery disease) I73.9
--- OUTSIDE RECORDS SUMMARY | 2025-01-28 12:13 | XMS_ITS | Encounter Summary ---
Author Organization [facility] Address [address] [place] [address] Care Team Providers Care Cafeteria Director Name Role Phone Jessica Allen MD Primary Care Provider [phone] Encounter Details Date Type Department Care Team (Late st Contact Info) Description 01/27/2025 Lab Requisition [facility] Lab [address] [facility] [place] [address] Jessica Allen MD [address] [place] [address] Sepsis, unspecified organism (CMS/HCC V24, CMS/[facility] V28) Social History Tobacco Use Types Packs/Day Years Used Date Smoking Tobacco: Never Assessed Comments Unknown Sex and Gender Information Value Date Recorded Sex Assigned at Not on file Legal Sex Female 9:02 AM EDT Gender Identity Not on file Sexual Orientation Not on file documented as of this encounter Plan of Treatment Not on file documented as of this encounter Procedures Procedure Name Priority Date/Time Associated Diagnosis Comments COMPLETE BLOOD COUNT Routine 01/27/2025 5:11 AM EDT Sepsis, unspecified organism (CMS/HCC V24, CMS/HCC V28) BASIC METABOLIC PANEL Routine 01/27/2025 5:11 AM EDT Sepsis, unspecified organism (CMS/HCC V24, CMS/HCC V28) documented in this encounter Results * (ABNORMAL) Basic metabolic panel (01/27/2025 5:11 AM EDT) Sodium 139 133 - 145 mmol/L LAB CHEMISTRY METHOD 01/27/2025 10:30 AM EDT [facility] Potassium 4.0 3.5 - 5.5 mmol/L LAB CHEMISTRY METHOD 01/27/2025 10:30 AM [facility] Chloride 106 96 - 110 mmol/L LAB CHEMISTRY METHOD 01/27/2025 10:30 AM [facility] CO2 25 21 - 32 mmol/L LAB CHEMISTRY METHOD 01/27/2025 10:30 AM [facility] Anion Gap 8 3 - 11 LAB CHEMISTRY METHOD 01/27/2025 10:30 AM [facility] Glucose 87 70 - 100 mg/dL LAB CHEMISTRY METHOD 01/27/2025 10:30 AM [facility] BUN 29(H) 5 - 25 mg/dL LAB CHEMISTRY METHOD 01/27/2025 10:30 AM [facility] Creatinine 1.46(H) 0.50 - 1.10 mg/dL LAB CHEMISTRY METHOD 01/27/2025 10:30 AM [facility] LAB eGFR 34(L) >=60 mL/min/1. 73m2 LAB CHEMISTRY METHOD 01/27/2025 10:30 AM [facility] LAB Comment:Calculation based on the Chronic Kidney Disease Epidemiology Collaboration (CKD-EPI) equation refit without adjustment for race. BUN/Creatinine Ratio 19.9 LAB CHEMISTRY METHOD 01/27/2025 10:30 AM [facility] Calcium 8.7 8.5 - 10.5 mg/dL LAB CHEMISTRY METHOD 01/27/2025 10:30 AM [facility] Blood Venous blood specimen / Unknown Venipuncture / Unknown 01/27/2025 5:11 AM EDT 01/27/2025 8:52 AM EDT us Jessica Allen MD LAB BLOOD ORDERABLES Final Resul t [facility] [address] [place] [address], * (ABNORMAL) Complete blood count (01/27/2025 5:11 AM EDT) [facility] Signature WBC 7.7 4.8 - 10.8 K/mcL LAB HEMETOLOGY METHOD 01/27/2025 10:07 AM [facility] RBC 3.60(L) 3.80 - 4.80 M/mcL LAB HEMETOLOGY METHOD 01/27/2025 10:07 AM [facility] Hemoglobin 8.9(L) 11.5 - 16.0 g/dL LAB HEMETOLOGY METHOD 01/27/2025 10:07 AM [facility] Hematocrit 31.5(L) 35.0 - 47.0 % LAB HEMETOLOGY METHOD 01/27/2025 10:07 AM [facility] MCV 87.5 79.0 - 98.0 FL LAB HEMETOLOGY METHOD 01/27/2025 10:07 AM [facility] MCH 24.7(L) 27.0 - 32.0 pcg LAB HEMETOLOGY METHOD 01/27/2025 10:07 AM [facility] MCHC 28.3(L) 32.0 - 37.0 g/dL LAB HEMETOLOGY METHOD 01/27/2025 10:07 AM [facility] RDW 20.0(H) 11.0 - 15.0 % LAB HEMETOLOGY METHOD 01/27/2025 10:07 AM [facility] Platelets 126(L) 130 - 400 K/mcL LAB HEMETOLOGY METHOD 01/27/2025 10:07 AM [facility] MPV 10.4 7.0 - 11.0 FL LAB HEMETOLOGY METHOD 01/27/2025 10:07 AM [facility] NRBC 0.0 <1.0 % LAB HEMETOLOGY METHOD 01/27/2025 10:07 AM EDT [facility] NRBC Absolute 0.00 <0.10 K/mcL LAB HEMETOLOGY METHOD 01/27/2025 10:07 AM EDT [facility] Blood Venous blood specimen / Unknown Venipuncture / Unknown 01/27/2025 5:11 AM EDT 01/27/2025 8:52 AM EDT us Jessica Allen MD LAB BLOOD ORDERABLES Final Resul t [facility] [address] [place] [address], documented in this encounter Visit Diagnoses Diagnosis Sepsis, unspecified organism (CMS/HCC V24, CMS/HCC V28) documented in this encounter Care Teams Cafeteria Director Relationship Specialty Start Date End Date Jessica Allen MD [address] [place] [address] [address] [place] [address] PCP - General Geriatric Medicine 01/03/25 documented as of this encounter
== END 2025-01-28 10:55 | disposition home or self-care (01) ==
LOC: HO.HVS 10:29
PROVIDERS: PCP Internal Medicine; Visit Provider Physician Assistant Surgical
DX: I73.9 Peripheral vascular disease, unspecified (principal)
CPT/HCPCS: 99214

== ENCOUNTER → 2025-01-28 10:29 | Outpatient (BNVA) | payer MEDICARE, MEDICAID, SELFPAY | PROVIDERS: PCP Internal Medicine; Visit Provider Physician Assistant Surgical | DX: I73.9 Peripheral vascular disease, unspecified (principal) | CPT/HCPCS: 99212 ==

== ENCOUNTER 2025-03-05 13:15 | Outpatient (AMB) | payer MEDICARE, MEDICAID, SELFPAY ==
--- OUTSIDE RECORDS SUMMARY | 2025-03-05 13:18 | XMS_ITS | Encounter Summary ---
Author Organization [facility] Address [address] [place] [address] Care Team Providers Care Salvage Machine Operator Name Role Phone Jessica Allen MD Primary Care Provider [phone] Encounter Details Date Type Department Care Team (Late st Contact Info) Description 03/03/2025 Lab Requisition [facility] [address] [place] [address] Jessica Allen MD [address] [place] [address] Unspecified systolic (congestive) heart failure (CMS/HCC V24, CMS/HCC V28); Unspecified atrial fibrillation (CMS/HCC V24, CMS/HCC V28); Essential (primary) hypertension; Chronic obstructive pulmonary disease, unspecified (CMS/HCC V24, CMS/HCC V28); Chronic kidney disease, unspecified; Hypokalemia Social History Tobacco Use Types Packs/Day Years [...] Associated Diagnosis Comments COMPLETE BLOOD COUNT Routine 03/03/2025 7:24 AM EDT Unspecified systolic (congestive) heart failure (CMS/HCC V24, CMS/HCC V28) Unspecified atrial fibrillation (CMS/HCC V24, CMS/HCC V28) Essential (primary) hypertension Chronic obstructive pulmonary disease, unspecified (CMS/HCC V24, CMS/HCC V28) Chronic kidney disease, unspecified Hypokalemia AMMONIA Routine 03/03/2025 7:24 AM EDT Unspecified systolic (congestive) heart failure (CMS/HCC V24, CMS/HCC V28) Unspecified atrial fibrillation (CMS/HCC V24, CMS/HCC V28) Essential (primary) hypertension Chronic obstructive pulmonary disease, unspecified (CMS/HCC V24, CMS/HCC V28) Chronic kidney disease, unspecified Hypokalemia COMPREHENSIVE METABOLIC PANEL Routine 03/03/2025 7:24 AM EDT Unspecified systolic (congestive) heart failure (CMS/HCC V24, CMS/HCC V28) Unspecified atrial fibrillation (CMS/HCC V24, CMS/HCC V28) Essential (primary) hypertension Chronic obstructive pulmonary disease, unspecified (CMS/HCC V24, CMS/HCC V28) Chronic kidney disease, unspecified Hypokalemia documented in this encounter Results * (ABNORMAL) Ammonia (03/03/2025 7:24 AM EDT) Ammonia 46(H) 11 - 35 mcmol/L LAB CHEMISTRY METHOD 03/03/2025 8:57 AM EDT [facility] Blood Venous blood specimen / Unknown Venipuncture / Unknown 03/03/2025 7:24 AM EDT 03/03/2025 8:20 AM EDT us Jessica Allen MD LAB BLOOD ORDERABLES Final Resul t [facility] [address] [place] [address], * (ABNORMAL) Comprehensive metabolic panel (03/03/2025 7:24 AM EDT) Sodium 134 133 - 145 mmol/L LAB CHEMISTRY METHOD 03/03/2025 9:46 AM EDT [facility] Potassium 4.9 3.5 - 5.5 mmol/L LAB CHEMISTRY METHOD 03/03/2025 9:46 AM EDT [facility] Chloride 103 96 - 110 mmol/L [facility] 25 21 - 32 mmol/L LAB CHEMISTRY METHOD 03/03/2025 9:[address] [facility] Anion Gap 6 3 - 11 LAB CHEMISTRY METHOD 03/03/2025 9:[address] [facility] Glucose 84 70 - 100 mg/dL LAB CHEMISTRY METHOD 03/03/2025 9:[address] [facility] BUN 33(H) 5 - 25 mg/dL LAB CHEMISTRY METHOD 03/03/2025 9:[address] [facility] Creatinine 2.48(H) 0.50 - 1.10 mg/dL LAB CHEMISTRY METHOD 03/03/2025 9:[address] [facility] eGFR 18(L) >=60 mL/min/1. 73m2 LAB CHEMISTRY METHOD 03/03/2025 9:[address] [facility] Comment:Calculation based on the Chronic Kidney Disease Epidemiology Collaboration (CKD-EPI) equation refit without adjustment for race. BUN/Creatinine Ratio 13.3 LAB CHEMISTRY METHOD 03/03/2025 9:[address] [facility] Calcium 9.3 8.5 - 10.5 mg/dL LAB CHEMISTRY METHOD 03/03/2025 9:[address] [facility] AST (SGOT) 45(H) 10 - 42 unit/L LAB CHEMISTRY METHOD 03/03/2025 9:[address] [facility] ALT (SGPT) 32 10 - 60 unit/L LAB CHEMISTRY METHOD 03/03/2025 9:[address] [facility] Alkaline Phosphatase 111 42 - 121 unit/L LAB CHEMISTRY METHOD 03/03/2025 9:[address] [facility] Total Protein 6.3 6.0 - 8.0 g/dL LAB CHEMISTRY METHOD 03/03/2025 9:[address] [facility] Albumin 2.9(L) 3.2 - 5.0 g/dL LAB CHEMISTRY METHOD 03/03/2025 9:46 AM EDT [facility] Total Bilirubin 1.0 0.0 - 1.4 mg/dL LAB CHEMISTRY METHOD 03/03/2025 9:46 AM T [facility] Blood Venous blood specimen / Unknown Venipuncture / Unknown 03/03/2025 7:24 AM EDT 03/03/2025 8:20 AM EDT us Jessica Allen MD LAB BLOOD ORDERABLES Final Resul t [facility] [address] [place] [address], * (ABNORMAL) Complete blood count (03/03/2025 7:24 AM EDT) WBC 9.5 4.8 - 10.8 K/mcL LAB HEMETOLOGY METHOD 03/03/2025 9:[address] [facility] RBC 3.30(L) 3.80 - 4.80 M/mcL LAB HEMETOLOGY METHOD 03/03/2025 9:[address] [facility] Hemoglobin 7.2(L) 11.5 - 16.0 g/dL LAB HEMETOLOGY METHOD 03/03/2025 9:[address] [facility] Hematocrit 27.5(L) 35.0 - 47.0 % LAB HEMETOLOGY METHOD 03/03/2025 9:[address] [facility] MCV 82.6 79.0 - 98.0 FL LAB HEMETOLOGY METHOD 03/03/2025 9:[address] [facility] MCH 21.6(L) 27.0 - 32.0 pcg LAB HEMETOLOGY METHOD 03/03/2025 9:[address] [facility] MCHC 26.2(L) 32.0 - 37.0 g/dL LAB HEMETOLOGY METHOD 03/03/2025 9:19 AM EDT [facility] RDW 19.8(H) 11.0 - 15.0 % LAB HEMETOLOGY METHOD 03/03/2025 9:19 AM EDT [facility] Platelets 190 130 - 400 K/mcL LAB HEMETOLOGY METHOD 03/03/2025 9:19 AM EDT [facility] MPV 10.4 7.0 - 11.0 FL LAB HEMETOLOGY METHOD 03/03/2025 9:19 AM EDT [facility] NRBC 0.5 <1.0 % LAB HEMETOLOGY METHOD 03/03/2025 9:19 AM EDT [facility] NRBC Absolute 0.05 <0.10 K/mcL [facility] 03/03/2025 9:19 AM EDT [facility] Blood Venous blood specimen / Unknown Venipuncture / Unknown 03/03/2025 7:24 AM EDT 03/03/2025 8:20 AM EDT Jessica Allen MD LAB BLOOD ORDERABLES Final Resul t [facility] [address] [place] [address], documented in this encounter Visit Diagnoses Diagnosis Unspecified systolic (congestive) heart failure (CMS/HCC V24, CMS/HCC V28) Unspecified atrial fibrillation (CMS/HCC V24, CMS/HCC V28) Essential (primary) hypertension Unspecified essential hypertension Chronic obstructive pulmonary disease, unspecified (CMS/HCC V24, CMS/HCC V28) Chronic kidney disease, unspecified Hypokalemia Hypopotassemia documented in this encounter Care Teams Salvage Machine Operator Relationship Specialty Start Date End Date Jessica Allen MD [address] [place] [address] [address] [place] [address] PCP - General Geriatric Medicine 5/18/25 documented as of this encounter
--- OUTSIDE RECORDS SUMMARY | 2025-03-05 13:18 | XMS_ITS | Data Portability ---
Author Organization [facility], Main Office Address [address] [facility] [address] [place] [address] Care Team Providers Care Vender Name Role Phone COLFAX FOR [facility] ER JERARDO ESPARZA Primary Care Provider [phone] Assessment Encounter Date Assessment Date Assessment LastModified by Organization Details LastModified Time 10/22/2024 10/22/2024 Lab 10/19/24: WBC 9.86, Hgb 9.8, Hct 33.3, PLT 232, Na 139, K 3.9, Cl 101, BUN 28, Cr 1.5, GFR 33 Not available 10/22/2024 10:25:44 10/26/2024 10/26/2024 Lab 10/19/24: WBC 9.86, Hgb 9.8, Hct 33.3, PLT 232, Na 139, K 3.9, Cl 101, BUN 28, Cr 1.5, GFR 33 [email or web address] Not available 10/26/2024 11:22:30 10/28/2024 10/28/2024 Lab 10/19/24: WBC 9.86, Hgb 9.8, Hct 33.3, PLT 232, Na 139, K 3.9, Cl 101, BUN 28, Cr 1.5, GFR 33 Not available 10/28/2024 15:25:45 11/02/2024 11/02/2024 Lab 10/19/24: WBC 9.86, Hgb 9.8, Hct 33.3, PLT 232, Na 139, K 3.9, Cl 101, BUN 28, Cr 1.5, GFR 33 [email or web address] Not available 11/02/2024 10:09:05 Plan of Treatment Reminders Order Date Submit Date Provider Last Modified By Organization Details Last Modified Time Details Appointments None record ed. Lab None record ed. Referral None record ed. Procedures None record ed. Surgeries None record ed. Imaging None record ed. Medication Orders None record ed. Patient TargetsNo targets recorded. Patient InstructionsNo instructions recorded. Reason for Referral None Reported. Problems Name Problem SNOMED Code Status Onset Date Resolution Date Notes Provider Name and Address Organization Details Recorded Time Congestive heart failure 32284692 Active 2024 Pedro Luis Lackey MD [address], [address], [place], [address], [employer] 5 11:49:47 Chronic obstructive pulmonary disease 84430928 Active 2024 Pedro Luis Lackey MD [address], [address], [place], [address], [employer] 5 11:49:52 Tobacco user 995424849 Active 2024 Pedro Luis Lackey MD [address], [address], [place], [address], [facility] 5 11:50:48 Coronary arterioscleros is 67185648 Active 2024 Pedro Luis Lackey MD [address], [address], [place], [address], [facility] 5 11:50:53 Essential hypertension 10504170 Active 2024 Pedro Luis Lackey MD [address], [address], [place], [address], [employer] 5 11:50:58 Atrial fibrillation 54766912 Active 2024 Pedro Luis Lackey MD [address], [address], [place], [address], [facility] 5 11:53:09 Gastroesophage al reflux disease without esophagitis 427442756 Active 2024 Pedro Luis Lackey MD [address], [address], [place], [address], [facility] 5 11:57:58 Problem Notes None recorded. Medical Equipment None Reported. Allergies Allergen ID Allergen Name Allergen Category Reaction Reaction Severity Criticality Documentation Date Start Date Code Code System Note Provider Name and Address Organization Details Recorded Time 57451 Lipitor medicatio n Not available Not available Not available 09/10/2024 58287 5 RxNorm Pedro Luis Lackey MD [address] [place] [address], [facility] [address], [place], [address], [facility] 5 11:43:51 Medications Not known to be on any medication Vitals Date Recorded Body weight Heart rate Oxygen saturation Oxygen saturation in Arterial blood by Pulse oximetry Systolic And Diastolic Provider Name and Address Organization Details Last Updated DateTime 5 92830.0 5 g 86 /min 95 % 95 % 126/78 mm[Hg] CHRISSY HUERTAS NP [address] [place] [address], [place], [address], [facility] 5 10:30:04 Social History Question Answer Notes LastModified by Organizat ion Details LastModified Time Tobacco Smoking Status Current Every Day Smoker Pedro Luis Lackey MD [address] [place] [address], [place], [address], [facility] 09/10/2024 12:03:23 How Much Tobacco Do You Smoke? 0.5 PPD Information not available 09/10/2024 Sex: Unknown Functional Status Question Answer Note LastModified by Organization D etails LastModified Time What is your level of alcohol consumption? None Information not available 09/10/2024 Mental Status None recorded. Family History Nothing Reported Notes:N/C Medical History No medical history recorded. Gynecological HistoryNo gynecological history recorded. Obstetrics History GPAL:G 0 P 0 0 0 0 Immunizations Vaccine Type Date Status Note Provider Nam e and Address Organization Details Recorded Time Td(adult) unspecified formulation 9 completed Deisi Torres [facility] 09/09/2024 12:13:03 pneumococcal polysaccharide PPV23 [facility] 09/09/2024 12:13:18 SARS-COV-2 (COVID-19) vaccine, UNSPECIFIED 1 [facility] 09/09/2024 12:13:33 Past Encounters Encounter ID Performer Location Encounter Start Date Encounter Closed Date Diagnosis/Indication Diagnosis SNOMED-CT Code Diagnosis ICD10 Code Diagnosis Note [id number] [facility] [address] [place] [address] 09/09/2024 09:01:37 09/11/2024 11:59:44 Acute hypoxemic respiratory failure 728723704 J96.01 multifacto rialmonito r respirator y statuscont inues on 2 L oxygen, no home [id number] satsif lethargy continues would order CXR Hospital a cquired pneumonia 651400022 Y95 completed antbxlabs to monitor cbc tomorrow Congestive heart failure 85081242 I50.43 new CHF with acute exacerbati onrequired lasix dripcontin ue lasix 80 mg bidEcho 40% EF with mod to severe TV regurgmoni tor respirator y statusdail y weightsupd ate cards with concerns Atrial fibrillation 4943 6004 I48.0 new onset rapid afib required cardizem dripeliqui s 2.5 mg bidmetopro lol 25 mg bidmonitor for rate control and bleeding Chronic ob structive pulmonary disease 42402030 J44.1 COPD exacerbati oncurrent pack a day smokercomp leted steroidsen courage quittingwe an O2 as toleratedn ot on at baseline Acute kidney injury 1466 9001 N17.8 dt cardiorena l syndrome in the setting of volume overloadim proved with diuresisbm p on admit and weekly Asthenia 97328930 R53.1 PT OT Eval and treatRolla tor at baselinere quired baron todaymonit or progressgo al is to return home per SW Tobacco user 976227049 Z 72.0 encourage quittingcu rrently not on nicotine replacemen twill offer if cravings emerge Coronary arteriosclerosis 07608834 I25.10 crestor 20 mg qdasa 81 mg qdmetoprol ol 25 mg bidhx of MImonitor sx Essential hypertension 12940474 I10 no longer on hctz = dc inptmetopr olol 25 mg bidlasix 80 mg bidnorvasc 10 mg qdmonitor bp and need to titrate Acute hyperkalemia 39210 00 E87.5 required lokelma in hospitalco ntinue kcl 20 mew dailybmp on admit and weekly Gastroesop hageal reflux disease without esophagitis 371893140 K21.9 omeprazole 20mg qdmonitor for sx relief [id number] Pedro Luis Lackey MD [facility] [address] [place] [address] 09/10/2024 11:43:28 09/11/2024 13:14:29 Acute hypoxemic respiratory failure 349644663 J96.01 multifacto rial see belowmonit or respirator y status and need to reimage Hospital a cquired pneumonia 698004286 Y95 Pneumonia initially covered with rocephin and zithromax however required coverage with zosyn and linezolidn ow completed abx Congestive heart failure 60871083 I50.43 CHF exacerbati on required lasix drip now on 80 mg bidEcho 40% EF with mod to severe TV regurgmoni tor respirator y statusupda te cards with concerns Chronic ob structive pulmonary disease 22519232 J44.1 COPD exacerbati on smoking 1/2-1 ppd required steriod treatmente ncourage quittingmo nitor need for steroid burstwean O2 as toleratedn ot on at baseline Acute kidney injury 1466 9001 N17.8 improved with diuresis Asthenia 79371432 R53.1 PT OT Eval and treatmonit or fall risk and need for increased support in the communityR ollator at baseline Tobacco user 204212395 Z 72.0 encourage quittingni cotine replacemen t prn Coronary arteriosclerosis 84014547 I25.10 crestor 20 mg qd (noted allergy to lipitor)as a 81 mg qdmetoprol ol 25 mg bidhx of MImonitor sx Essential hypertension 56535924 I10 metoprolol 25 mg bidlasix 80 mg bidnorvasc 10 mg qdmonitor bp and need to titrateHCT Z dc/'ed in hospital Atrial fibrillation 4943 6004 I48.0 new onset rapid afib required cardizem drip now oneliquis 2.5 mg bidmetopro lol 25 mg bidmonitor for rate control Acute hyperkalemia 91693 00 E87.5 required lokelma in hospitalmo nitor lytes however now on KCl 20 mcg qd maintained on lasix Gastroesop hageal reflux disease without esophagitis 983374299 K21.9 omeprazole 20mg qdmonitor for sx relief [id number] RED JENSEN [address] [facility] [place] [address] 09/10/2024 14:21:13 09/11/2024 13:12:32 Leukocytosis 352804958 D72.829 wbc trending up to 19no fever, no ss acute infection on examwill initiate STAT infectious workupcbc, bmp, blood cx x 2replace de la cruz and obtain clean UA with reflexSTAT CXRstool for c difmonitor vitals for fever and any decline Acute kidney injury 1466 9001 N17.8 found inpt dt cardiorena l responded to lasixwas discharged on lasix 80 bidsuspect pt is now dryhold lasixencou rage extra fluid intakebmp tomorrow morningif cre continues to trend up consider gentle IV fluid replacemen t being mindful of chf dx [id number] [address] [facility] [address] [place], [place] [address] 09/11/2024 18:20:53 09/14/2024 10:42:35 Leukocytosis 760084894 D72.829 wbc up to 20, trending down to 15at this time UA, CXR, and bld cx X2 are negpt has no ss of active infectionq uestion if this was steriod induced from inpt stay-if loose stools return send stool-repe at cbc mon-monito r for fevers and ss of infection Acute kidney injury 1466 9001 N17.8 found inpt dt cardiorena l responded to lasix and cre returned to wnl and she was discharged on lasix 80 mg bidlasix on hold since last night when cre bumped to 2today cre stable at 2making urine, collecting in foleyconti nue to hold lasixencou rage oral hydrationb mp on monif cre remains elevated at this time would consider very gentle IV hydration being mindful of biventricu lar HF Diarrhea 55642712 R19.7 was having but now resolvedno bm in almost 24 hrsstart culturelle bid x 2 weeksmonit or for return and send stool [id number] RED [address] [place], [place] [address] 09/14/2024 12:49:25 09/17/2024 08:53:57 Leukocytosis 585010392 D72.829 wbc up to 20, trending down to 14infectio us workup neg including urine, CXR, bld cultures and stoolremai ns afebrile Diarrhea 52680321 R19.7 no diarrheast ools remain loose in consistenc y Acute kidney injury 1466 9001 N17.8 cre peaked at 2.1 and diuretics have been on holdtrendi ng down to 1.7repeat labs on sat Congestive heart failure 22559240 I50.43 new CHF with acute exacerbati onlasix was being held for akipt with sob and orthopnea, feeling hot and self removing clothinggi ve lasix 80 mg now and at 9pmrestart lasix 80 mg bid tomorrowob tain STAT cxrrepeat labs weddaily wts and close monitoring of fluid statusif neel does not resolve with diuresis will reach out to cards and nephro [id number] CHRISSY JOHNSON NP-C [facility] [address] [place] [address] 2024 07:23:57 09/28/2024 13:17:52 Acute kidney injury 46549310 N17.8 cre peaked at 2.7trendin g down to 1.7lasix is now half doserepeat labs on Congestive heart failure 81794868 I50.43 new CHFdischar ged on decreased dose of lasixeuvol emic on examcontin ue lasix 80 mg dailyconti nue metorpolol kcl 10 meq dailyrepea t labs on daily wts and close monitoring of fluid statusneed s cards f/up Acute hypo xemic respiratory failure 030119039 J96.01 multifacto rial with COPD, flu, and PNAmonitor respirator y status Hospital a cquired pneumonia 679781861 Y95 completed rocephen and azithrores olved Atrial fibrillation 4943 6004 I48.0 new onset rapid afib from previous hopsital courseeliq uis 2.5 mg bidmetopro lol 25 mg bidmonitor for rate control and bleeding Chronic ob structive pulmonary disease 10660141 J44.1 COPD exacerbati on smoking 1/2-1 ppd required steriod treatmente ncourage quittingcu rrently on 2 L, none from homewean O2 as tolerated Asthenia 05993600 R53.1 admit to PT OT Eval and treatmonit or fall risk and need for increased support in the communityc urrently using tilt and spaceRolla tor at baseline Tobacco user 107597891 Z 72.0 encourage quittingni cotine replacemen t prn Coronary arteriosclerosis 93594239 I25.10 crestor 20 mg qd (noted allergy to lipitor)as a 81 mg qdmetoprol ol 25 mg bidhx of MImonitor sx Essential hypertension 56267802 I10 metoprolol 25 mg bidlasix 80 mg dailynorva sc 10 mg qdmonitor bp and need to titrate Gastroesop hageal reflux disease without esophagitis 458475461 K21.9 omeprazole 20mg qdmonitor for sx relief Influenza caused by Influenza A virus 257746191 J09.X2 completed tamiflures olved [id number] CHRISSY JOHNSON, CHILD GUIDANCE COUNSELOR-C [facility] [address] [place] [address] 10/05/2024 12:04:45 10/26/2024 10:16:37 Acute kidney injury 94869679 N17.8 cre up to 2.1 again on 10/01lasix is now half doserepeat labs tomorrowif continues to be high will hold diuretic Congestive heart failure 72896225 I50.43 new CHFdischar ged on decreased dose of lasixeuvol emic on examcontin ue lasix 80 mg dailyconti nue metorpolol kcl 10 meq dailyrepea t labs on thursdaily wts and close monitoring of fluid statusneed s cards f/up Acute hypo xemic respiratory failure 282348425 J96.01 multifacto rial with COPD, flu, and PNAmonitor respirator y status Hospital a cquired pneumonia 783333029 Y95 completed rocephen and azithrores olved Atrial fibrillation 4943 6004 I48.0 new onset rapid afib from previous hospital courseeliq uis 2.5 mg bid (unsure why it isnt ordered here)metop rolol 25 mg bidmonitor for rate control and bleeding Chronic ob structive pulmonary disease 29356787 J44.1 no acute exacerbati onencourag e quitting smokingcur rently on 2 L, none from homewean O2 as tolerated Asthenia 46784342 R53.1 continue PT OT Eval and treatmonit or fall risk and need for increased support in the communityc urrently using tilt and spaceRolla tor at baseline Tobacco user 898078821 Z 72.0 encourage quittingni cotine replacemen t prn Coronary arteriosclerosis 56893165 I25.10 crestor 20 mg qd (noted allergy to lipitor)as a 81 mg qdmetoprol ol 25 mg bidhx of MImonitor sx Essential hypertension 61705420 I10 BP at goalmetopr olol 25 mg bidlasix 80 mg dailynorva sc 10 mg qdmonitor bp and need to titrate Gastroesop hageal reflux disease without esophagitis 022717142 K21.9 omeprazole 20mg qdmonitor for sx relief Influenza caused by Influenza A virus 620942698 J09.X2 completed tamiflures olved Hemoglobin below reference range 841428285 D64.9 hgb down to 8.8baselin e around 10no acute ss bleedingho lding eliquisocc ult stool poscontinu e ferrous sulfatecbc lluvia and add on iron panel [id number] CHRISSY JOHNSON, CHILD GUIDANCE COUNSELOR-C [facility] [address] [facility] [address] 10/06/2024 11:12:56 10/07/2024 10:25:56 Acute kidney injury 35901407 N17.8 cre up to 2.1 again on 10/01trendi ng down to 1.7questio n if urinary retention is causerepea t labs fri Congestive heart failure 74007033 I50.43 new CHFdischar ged on decreased dose of lasixeuvol emic on examcontin ue lasix 80 mg dailyconti nue metorpolol kcl 10 meq dailyrepea t labs on fridaily wts and close monitoring of fluid statusneed s cards f/up Acute hypo xemic respiratory failure 298686315 J96.01 now off oxygenon RAmonitor Chronic ob structive pulmonary disease 12436846 J44.1 no acute exacerbati onencourag e quitting smokingrem ains on RA Asthenia 38821372 R53.1 continue PT OT Eval and treatmonit or fall risk and need for increased support in the communityc urrently using tilt and spaceRolla tor at baseline Tobacco user 653125498 Z 72.0 encourage quittingni cotine replacemen t prn Hemoglobin below reference range 620466717 D64.9 hgb down to 8.8baselin e around 10no acute ss bleedingho lding eliquisocc ult stool poscontinu e ferrous sulfatecbc lluvia and add on iron panel [id number] CHRISSY JOHNSON NP-C [facility] [address] [place] [address] 10/12/2024 10:44:10 10/13/2024 15:16:25 Acute kidney injury 53191615 N17.8 cre up to 2.1 again on ontin ue to trend down cre 1.6 on 10/08will monitor Congestive heart failure 59137442 I50.43 new CHFdischar ged on decreased dose of lasixeuvol emic on examcontin ue lasix 80 mg dailyconti nue metoprolol kcl 10 meq dailyrepea t labs on wts and close monitoring of fluid statusneed s cards f/up Asthenia 19528435 R53.1 continue PT OT Eval and treatmonit or fall risk and need for increased support in the communitym aking progress with therapythe y are thinking another 2 weeks before dc home Hemoglobin below reference range 542112919 D64.9 hgb now up to 9.6 this am = baseline around 10serum iron low at 20no acute ss bleedingre start eliquis 2.5 mg bid for afibcontin ue ferrous sulfatecbc end of week to tend hgb with restarting AC Retention of urine 46331 4002 R33.9 failed voiding trial onceshe is ambulating more nowcomplet ed 3 days of flomaxvoid trial tomorrowbl adder scan qshift x 3 days, if PVR > 450 cc Emmainsroxana de la cruz for 2 straight caths in a rowdiscuss ed void trial with therapy with will place her on frequent toileting schedule [id number] CHRISSY HUERTAS NP [facility] [address] [place] [address] 10/22/2024 05:21:51 10/26/2024 09:45:36 Acute kidney injury 93908497 N17.8 Cr downtrendi ng; now 1.5Encoura ge fluids; monitor urinary output Congestive heart failure 02080255 I50.43 Continue lasix 80 mg daily, Metoprolol Continue KCl 10mEq dailyK 3.9Wt 155.9, stable. BP 126/78 Asthenia 93391399 R53.1 Continue therapies; ambulating up to 75ft with RW; making gainsGoal is to DC back to her home as soon as she is able Hemoglobin below reference range 021950314 D64.9 3 Hgb 9.8Continu e Ferrous SulfateMon itor with routine labs Retention of urine 74718 4002 R33.9 Initiate voiding trial; de la cruz to be removed todayPVR Qshift; straight cath for residual 350mL or greaterIf requires straight cath x2, reinsert foleyConsi elizabeth Urology for ongoing retention [id number] [address] [place] [address] 10/26/2024 11:16:37 10/28/2024 16:59:22 Acute kidney injury 38832308 N17.8 Cr around baseline, 1.6 on 37Encoura ge fluidson lasix Congestive heart failure 99657178 I50.43 euvolemic on exam, wt stableCont inue lasix 80 mg daily,Meto prololCont inue KCl 10mEq dailymonit or labs and fluid status Asthenia 39186887 R53.1 Continue therapies; ambulating up to 75ft with RW; making gainsGoal is to DC back to her home as soon as she is able to toilet herselfmak ing good progress per therapy, getting close to dc (maybe this week) Hemoglobin below reference range 700289461 D64.9 3 Hgb 9.84, stableCont inue Ferrous SulfateMon itor with routine labs Retention of urine 85041 4002 R33.9 voiding trial on id elpidio remains out, voiding on her own [id number] RED JENSEN [address] [facility] [place] [address] 10/28/2024 11:09:51 10/30/2024 12:18:01 Acute kidney injury 04980450 N17.8 Cr around baseline, stable at 1.6 nowEncoura ge fluidson lasixwill refer to f/up with nephro outpt for suspected CKD Congestive heart failure 83736699 I50.43 euvolemic on exam, wt stableCont inue lasix 80 mg daily,Meto prololCont inue KCl 10mEq dailymonit or labs and fluid status Asthenia 14027659 R53.1 continue PT OTmaking good gains, tentative dc plan for tues next weekworkin g on functional tasks and toileting independen tly Retention of urine 58450 4002 R33.9 resolvedur inating without issues [id number] CHRISSY JOHNSON, CAMACHOC [facility] [address] [place] [address] 11/02/2024 10:04:35 11/03/2024 09:44:57 Acute kidney injury 27788054 N17.8 Cr around baseline, stable at 1.6 nowEncoura ge fluidson lasixwikatherine refer to f/up with nephro outpt for suspected CKD Congestive heart failure 61845712 I50.43 euvolemic on exam, wt stableCont inue lasix 80 mg daily,Meto prololCont inue KCl 10mEq dailymonit or labs and fluid status outptf/up with pcp Asthenia 78063345 R53.1 continue PT OTdc with servicesf/ up with pcp Retention of urine 77124 4002 R33.9 resolvedur inating without issues Hemoglobin below reference range 980984530 D64.9 3/ Hgb 9.84, stableCont inue Ferrous Sulfatef/u p with pcp Acute hypo xemic respiratory failure 406090987 J96.01 now off oxygenon Juan/up with pcp Chronic ob structive pulmonary disease 74124565 J44.1 no acute exacerbati onencourag e quitting smokingrem ains on Juan/up with pcp Tobacco user 572798790 Z 72.0 encourage quittingni cotine replacemen t prn = deniedneed s outpt support Hospital a cquired pneumonia 885040407 Y95 completed rocephen and azithrores olved Atrial fibrillation 4943 6004 I48.0 new onset rapid afib from previous hospital courseeliq uis 2.5 mg bid (unsure why it isnt ordered here)metop rolol 25 mg bidmonitor for rate control and bleedingf/ up with cards Coronary arteriosclerosis 93076146 I25.10 crestor 20 mg qd (noted allergy to lipitor)as a 81 mg qdmetoprol ol 25 mg bidhx of MIf/up with cards Essential hypertension 36005545 I10 BP at goalmetopr olol 25 mg bidlasix 80 mg dailynorva sc 10 mg qdmonitor bp outptf/up with pcp Gastroesop hageal reflux disease without esophagitis 368048255 K21.9 omeprazole 20mg qdmonitor for sx relief outptf/u with pcp Influenza caused by Influenza A virus 527426314 J09.X2 completed tamiflures olved Health Concerns Section Related Observation LastModified by Organization Detai ls LastModified Time None Recorded Concern Status LastModified by Organization Details LastModified Time None Recorded Advance Directives Directive None Recorded Payers Insurance Date Sequence Insurance Name Policy Number Policy Bennett Covered Member ID Bennett Member ID Guarantor Name 10/22/2024 1 [place]: [employer] Jaki Kulkarni [id number] Jaki Kulkarni 10/22/2024 2 [place] [facility] Jaki Kulkarni [id number] Jaki Kulkarni Notes Date Note Type Note Provider Name and Address Organization Details Recorded Time 10/12/2024 text/html Patient is an 88 female being seen for acute rounding. Pt in rehab with new CHF with a reduced ef, new afib with rvr, COPD exam, PNA, and an NEEL. Patient seen today after working with therapy. She is doing well with progress with sessions. She remains on RA and her exertional sats are stable. SHe reports breathing is good and no orthopnea. Her weight has been stable. On repeat labs 10/08 cre continues to trend down to 1.6. Her de la cruz remains patent but she is wondering when she get it out. PMH COPD, current smoker, CAD with stent CHRISSY JOHNSON NP-C [address], [address], [place], [address], [facility] [employer] 10/12/2024 11:31:18 10/22/2024 text/html Patient is an 88 female being seen for acute rounding. Pt in rehab with new CHF with a reduced ef, new afib with rvr, COPD exam, PNA, and an NEEL. PMH COPD, current smoker, CAD with stent Pt seen and evaluated; she offers no c/o today. Left knee brace in place. Pain managed. Continues working with therapies; recent PT note below. VS, Weights reviewed. No additional concerns, denies MINOR/dizziness, CP/SOB, NVD, fever/chills. Discussed with nursing; de la cruz not removed earlier this week. To be removed today for voiding tril, discussed with pt she is in agreement with this plan. Therapy notes: 90555: gait training with RW up to 75 feet x 2 with c/g, trial L knee brace for increased support with WB activity, v/c forforward trunk, hand placement, safe descent and enhance safety and control during dyn [id number]: static/dynnamic standing balance activity to restore balance. mobility and function, UE reaching/bendingac tivity with c/g, standing tolerance limited with c/o of SOB, review DBE and energy [id number]: nu-step x 15 min for BLE strengthening/endu moriah. level 3, activity 540 steps to improve transfers/gait CHRISSY HUERTAS NP [address] [facility] [address], [place], [address], [employer] 10/22/2024 11:18:43 10/26/2024 text/html Patient is an 88 female being seen for acute rounding. Pt in rehab with new CHF with a reduced ef, new afib with rvr, COPD exam, PNA, and an NEEL. Patient seen today. She is making progress with therapy. Per therapy she is is a mid to moderate assist for transfers still. Prior to dc home she would have to be able to toilet herself per her families request. She remains off oxygen. No resp sx at this time. SHe is eager to go home. She is sleeping and eating normally. HEr de la cruz was removed on saturday and she did well with the voiding trial. PMH COPD, current smoker, CAD with stent CHRISSY JOHNSON NP-[facility]let [address], [address], [place], [address], [facility] 10/26/2024 11:25:28 10/28/2024 text/html Patient is an 88 female being seen for acute rounding. Pt in rehab with new CHF with a reduced ef, new afib with rvr, COPD exam, PNA, and an NEEL. Patient seen today. Discussed with SW and patient will likely dc home next week on Saturday. Per therapy she has been making gains. She currently only requires ques for functional tasks and toileting. Jaki has no complaints today and is excited to be going home soon. She remains off oxygen and without a de la cruz cath. [facility] COPD, current smoker, CAD with stent RED JENS[facility] [address], [address], [place], [id number], [facility] 10/28/2024 15:27:54 11/02/2024 text/html Patient is an 88 female being seen a discharge summary visit. Pt in rehab with new CHF with a reduced ef, new afib with rvr, COPD exam, PNA, and an NEEL. Patient will discharge home tomorrow. We discussed smoking cessation as she has now been cigarette free for a couple of months after being a 2 pack per day smoker majority of her life. She is honest with me and says she doesnt know if she will stay quit, its hard she says. We discussed the risks of continue to smoke with her COPD and CHF. SHe has been off supplemental oxygen and voiding with out a de la cruz for a few weeks now. At this time she is medically clear for discharge home with meds and services. [facility] COPD, current smoker, CAD with stent RED [facility] [address], [address], [place], [address], [employer] [facility] 11/02/2024 10:39:37 OBGyn Episode No OBEpisode recorded.
--- NOTE | 2025-03-05 13:19 | A.OFFVIS_ITS ---
Vital Signs 03/05/25 13:20 Height 5 ft 2 in BMI Reason not done Patient refused/unable BP 100/60 Blood Pressure Location Lt brachial Position Sitting Pulse 89 Pulse Source Pulse Oximeter Intake Visit Reasons: r/s 02/11/25 4 mos followup Allergies atorvastatin Adverse Reaction (Intermediate, Verified 01/28/25 10:38) myalgias HPI Comments Details: This is an 89-year-old female patient who is coming for a follow-up visit, accompanied by her daughter and staff from [facility]. Patient with a history of hypertension, coronary artery disease, [place] in the early 1999s with PCI, AFib, and congestive heart failure. Patient is in a wheelchair and is a poor historian. Patient was recently in the hospital for a blood due to GI blood loss with a hemoglobin at 5 requiring 4 units of transfusions. Due to this, patient's Eliquis, aspirin and Plavix was held but after vascular consultation, patient was restarted back on Eliquis. During this time, patient also developed NEEL and her Lasix was held. Today, with upon med reconciliation, patient's continues to be only on Eliquis therapy for anticoagulation. Patient is denying any exertional symptoms of chest pain, shortness of breath, palpitations, dizziness, orthopnea, PND, leg edema, presyncope, or syncope. Patient is stating compliance with all her medications given the fact that meds are helping given by nurses at the facility. No reported signs of bleeding or recent falls. [facility] Medical History (Updated 03/05/25 @ 16:50 by Ross Chung NP) Congestive heart failure Coronary artery disease Acute congestive heart failure Atrial fibrillation with rapid ventricular response PAD (peripheral artery disease) Cholelithiasis CHF (congestive heart failure) Falls Afib Macular degeneration Overweight (BMI 25.0-29.9) COVID-19 vaccine administered History of COVID-19 Restrictive lung disease Edema Current smoker Iron deficiency anemia Tobacco abuse Carotid bruit Obesity (BMI 30-39.9) Depression Insomnia Allergic rhinitis Elevated TSH GERD without esophagitis Impaired fasting glucose Anemia Knee osteoarthritis Vitamin D deficiency Chronic kidney disease (CKD), stage III (moderate) Pure hypercholesterolemia Benign essential hypertension Surgical History Hx of total knee arthroplasty Hx of colonoscopy Hx of cardiac cath Hx of bilateral cataract extraction History of hysterectomy Family History Father Medical history unknown Mother CVD (cardiovascular disease) Social History Household Members: Other Household Members Other:: Daughter and grandson Housing: Assisted Living Facility Are you a primary care provider to a significant other at home: No Do you presently have visiting nurse or other home services: No Unable to assess alcohol history related to: Unknown Alcohol intake: never Comment: aware of trip hazard Patient Tobacco Use Status: Former Tobacco user Tobacco use type: Cigarette Cigarette Packs Per Day: 1 Cigarettes Per Day: 20.0 Years Smoked: 70 e-Cigarette/Vaping Use: Never Used Second Hand Smoke Exposure: Yes service: No Current occupational status: retired and disabled Cognitive needs: No (cane/walker) Hearing needs: No Vision needs: No Review of Systems Const Denies weakness ENT Denies dizziness Card Denies chest pain, Denies chest pain with activity, Denies syncope, Denies rapid heart rate, Denies pedal edema, Denies edema, Denies leg edema, Denies lightheadedness, Denies palpitations, Reports dyspnea, Denies dyspnea on exertion and Denies orthopnea Resp Denies cough, Reports dyspnea and Denies dyspnea on exertion GI Denies hematochezia and Denies change in stool character Musc Denies abnormal gait, Denies muscle cramps, Denies muscle weakness, Denies numbness, Denies radiating pain into limb and Denies tingling Neuro Denies abnormal gait, Denies dizziness, Denies syncope, Denies numbness, Denies tingling and Denies weakness Endo Denies palpitations Physical Exam Vital Signs: Last Vital Signs Pulse 89 03/05/25 13:20 BP 100/60 03/05/25 13:20 Const General: cooperative, comfortable, no acute distress and tired appearing Orientation/consciousness: patient oriented x3 HEENT Head: Yes normal to inspection Neck Neck: Yes normal visual inspection, Yes trachea midline and Yes supple Chest Chest palpation & inspection: normal inspection of the chest Resp Effort & Inspection: normal respiratory effort Auscultation: clear to auscultation bilaterally, no crackles, no rales, no rhonchi and no wheezes Cardio Jugular venous distension: no JVD Palpation: normal PMI Rate: regular rate Rhythm: abnormal rhythm Heart sounds: S1 normal heart sound present, S2 normal heart sound present, no click, no gallops, no murmurs and no rubs Peripheral pulses: Peripheral pulses 2+ throughout GI Inspection: Yes normal to inspection Palpation (GI): Soft to palpation Auscultation: normal bowel sounds Other: Fajardo catheter present Skin Other: Pale appearing General skin exam: no rashes or lesions noted Neuro General: patient oriented x3 Extrem General: Yes normal to inspection, No no pedal edema, No calf tenderness and No edema Psych Appearance: grossly normal Speech and movement: Normal speech and movement present Assessment & Plan Assessment & Plan (1) Afib: Code(s): I48.91 - Unspecified atrial fibrillation Category: Medical Plan: Persistent AFib. On exam today irregular heart rate. Patient is currently on the low dose of Eliquis therapy for anticoagulation. No reported signs of bleeding or falls. From presentation, patient is pale and daughter stated that her nursing facility is doing the labs and therefore have requested nursing facility to order a set of CBC and to monitor this closely given the fact that patient had recent ABLA with an hemoglobin at 5. Patient has not seen GI yet and is planning on calling them for a follow-up visit since hospital discharge. (2) Congestive heart failure: Code(s): I50.9 - Heart failure, unspecified Category: Medical Plan: Clinically euvolemic today. Continue current Lasix therapy. Given her softer blood pressures, we can slowly reduce her Lasix dose. (3) Coronary artery disease: Code(s): I25.10 - Atherosclerotic heart disease of [place] coronary artery without angina pectoris Category: Medical Qualifiers: Coronary Disease-Associated Artery/Lesion type: [place] artery [place] vs. transplanted heart: [place] heart Associated angina: without angina Qualified Code(s): I25.10 - Atherosclerotic heart disease of [place] coronary artery without angina pectoris Plan: Continue statin therapy. LDL goal less than 70. (4) Benign essential hypertension: Code(s): I10 - Essential (primary) hypertension Category: Medical Plan: Blood pressure today is on the low-normal. Continue to hold amlodipine. Advised monitoring blood pressures with a goal less than 130/80. (5) PAD (peripheral artery disease): Code(s): I73.9 - Peripheral vascular disease, unspecified Category: Medical Plan: Being followed by Dr. Marley. (6) Hospital discharge follow-up: Code(s): Z09 - Encounter for follow-up examination after completed treatment for conditions other than malignant neoplasm Plan: As above. Advised heart healthy diet, exercise as tolerated, med compliance, monitoring labs closely, and management of vascular risk factors. Follow-up in 3 months. In the interim, patient will call the office with any concerns or change in symptoms. This note was generated using voice recognition software. While every effort has been made to ensure accuracy and proper impregnation operator, there may be occasional errors that could affect the content or meaning of the described symptoms. Coding Level of Care Code Est Pt Level 4 (69693) Complex EM visit Add On G2211 Diagnoses Afib I48.91 Congestive heart failure I50.9 Coronary artery disease involving [place] coronary artery of [place] heart without angina pectoris I25.10 Coronary Disease-Associated Artery/Lesion type: [place] artery [place] vs. transplanted heart: [place] heart Associated angina: without angina Benign essential hypertension I10 PAD (peripheral artery disease) I73.9 Hospital discharge follow-up Z09 Time Spent (min) 33 Comment Time spent in reviewing the chart, test results, assessment, counseling and documentation.
--- OUTSIDE RECORDS SUMMARY | 2025-03-05 13:19 | XMS_ITS | Clinical Summary ---
Author Organization [facility] Address [address] [place] [id number] Phone Care Team Providers Care Auto Body Man Name Role Phone Irving Meneses MD Primary Care Provider Un available Allergies No known active allergies Medications rosuvastatin (CRESTOR) 20 MG tablet Take 20 mg by mouth daily. Active metoprolol tartrate (LOPRESSOR) 25 MG tablet Take 25 mg by mouth 2 (two) times a day. Active amLODIPine (NORVASC) 10 MG tablet Take 10 mg by mouth daily. Active furosemide (LASIX) 80 MG tablet [The details of the medication are not available because there are pending changes by a home health clinician.] 5 Active Additional Information Patient not taking.Reason: Other (dose adjustment), Reported on 11/05/2024 potassium chloride SA (KLOR-CON M10) 10 MEQ ER tablet Take 1 tablet (10 mEq total) by mouth daily. 5 Active brimonidine (ALPHAGAN) 0.2 % ophthalmic solution Place 1 drop into each eye 3 (three) times a day. 5 Active fesoterodine (TOVIAZ) 4 mg Tb24 Take 4 mg by mouth as needed (overactive bladder). 5 Active tamsulosin (FLOMAX) 0.4 mg Cap Take 0.4 mg by mouth nightly at bedtime. 5 Active furosemide (LASIX) 40 MG tablet Take 80 mg by mouth daily. 5 Active gabapentin (NEURONTIN) 100 MG capsule Take 100 mg by mouth every 12 (twelve) hours as needed (pain). 5 Active tiZANidine (ZANAFLEX) 2 MG tablet Take 2 mg by mouth every 12 (twelve) hours as needed (muscle spasms/leg cramps). 5 Active acetaminophen (TYLENOL) 500 MG tablet Take 1,000 mg by mouth 3 (three) times a day. 5 Active vibegron (GEMTESA) 75 mg tablet Take 75 mg by mouth daily. 5 Active Active Problems Problem Noted Date Diagnosed Date Iron deficiency anemia 09/17/2024 Assessment & Plan (09/18/2024 6:19 PM EST): - stable compared to yesterday, no acute bleeding - at presentation hb 10.2, down to 8.8 - stable at 8.8 - with iron deficiency and anemia of chronic disease, outpt iron deficiency wkup Assessment & Plan (09/17/2024 6:40 PM EST): - stable compared to yesterday, no acute bleeding - at presentation hb 10.2, down to 8.8 - with iron deficiency and anemia of chronic disease, outpt iron deficiency wkup Influenza A 09/15/2024 Assessment & Plan (09/18/2024 6:19 PM EST): Patient met sepsis criteria with fever tachycardia and hypotension treated with IV fluids and boluses. Given empiric ceftriaxone for possible CAP. Azithromycin added. Chest x-ray notes superimposed pneumonia cannot be excluded and procalcitonin was elevated. Tamiflu now day #3 Leukocytosis has improved assess fever curve. -Continue Tamiflu for for 5 days. - Will continue antibiotics for bacterial superinfection given elevated procalcitonin and leukocytosis which is improving (ceftriaxone- completed 3 dosed azithromycin) - blood culture NG, MRSA screen negative, strep pneumo antigen negative, legionella antigen negative Assessment & Plan (09/17/2024 6:38 PM EST): Patient met sepsis criteria with fever tachycardia and hypotension treated with IV fluids and boluses. Given empiric ceftriaxone for possible CAP. Azithromycin added. Chest x-ray notes superimposed pneumonia cannot be excluded and procalcitonin was elevated. Tamiflu now day #3 Leukocytosis has improved assess fever curve. -Continue Tamiflu for for 5 days. - Will continue antibiotics for bacterial superinfection given elevated procalcitonin and leukocytosis which is improving (ceftriaxone- completing 3rd dose azithromycin) - blood culture NG, MRSA screen negative, strep pneumo antigen negative, legionella antigen negative Assessment & Plan (09/16/2024 6:39 PM EST): Patient met sepsis criteria with fever tachycardia and hypotension treated with IV fluids and boluses. Given empiric ceftriaxone for possible CAP. Azithromycin added. Chest x-ray notes superimposed pneumonia cannot be excluded and procalcitonin was elevated. Patient started on Tamiflu now day #2. Leukocytosis has improved assess fever curve. -Continue Tamiflu for for 5 days. - Will continue antibiotics for possible bacterial superinfection for now. Assessment & Plan (09/15/2024 4:37 AM EST): Will give Tamiflu dosed for current renal function. Given IV ceftriaxone due to elevated procalcitonin. I do not suspect a bacterial pneumonia given the appearance of the chest x-ray and lack of rhonchi on lung exam. Cognitive impairment 09/15/2024 Assessment & Plan (09/18/2024 6:19 PM EST): Patient's daughter states that she has been confused ever since presentation to [facility] 09/09. Healthcare proxy invoked. Dementia/delirium protocol in place. Assessment & Plan (09/17/2024 6:40 PM EST): Patient's daughter states that she has been confused ever since presentation to [facility] 09/09. Healthcare proxy invoked. Dementia/delirium protocol in place. Assessment & Plan (09/16/2024 6:39 PM EST): Patient's daughter states that she has been confused ever since presentation to [facility] 09/09. Healthcare proxy invoked. Dementia/delirium protocol in place. Assessment & Plan (09/15/2024 4:37 AM EST): Patient's daughter states that she has been confused ever since presentation to [facility] 09/09. Healthcare proxy invoked. Dementia/delirium protocol in place. Acute kidney injury 09/15/2024 Assessment & Plan (09/18/2024 6:19 PM EST): Unknown baseline. Recent admission to [facility] where she had NEEL and creatinine peaked at 2.1. Creatinine down trended, but is now elevated again at 2.5 on admission. -Treated with IV fluids and creatinine down to 2.3 - 09/18 monitoring on decreased lasix -Requested records from her previous PCP to determine her baseline renal function but they have not arrived -Avoid nephrotoxic medications. . Assessment & Plan (09/17/2024 6:38 PM EST): Unknown baseline. Recent admission to [facility] where she had NEEL and creatinine peaked at 2.1. Creatinine down trended, but is now elevated again at 2.5 on admission. -Treated with IV fluids and creatinine down to 2.3 - 09/17 off IVF still holding diuretic -Avoid nephrotoxic medications. . Assessment & Plan (09/16/2024 6:39 PM EST): Unknown baseline. Recent admission to [facility] where she had NEEL and creatinine peaked at 2.1. Creatinine down trended, but is now elevated again at 2.5 on admission. -Treated with IV fluids and creatinine down to 2.4 -Avoid nephrotoxic medications. . Assessment & Plan (09/15/2024 4:37 AM EST): Unknown baseline. Recent admission to [facility] where she had NEEL and creatinine peaked at 2.1. Creatinine down trended, but is now elevated again at 2.5. We will avoid nephrotoxic medications. proBNP is very elevated, but she seems euvolemic to hypovolemic. No rales on exam and no lower extremity edema. I will give gentle IV fluids. Atrial fibrillation with rapid ventricular respo nse 09/15/2024 Assessment & Plan (09/18/2024 6:19 PM EST): Impaired systolic function on most recent echocardiogram at [facility]. Will avoid diltiazem if possible due to the decreased ejection fraction. Patient was not on anticoagulation prior to admission Patient had rapid ventricular response related to acute sepsis and hypotension. Volume resuscitated and now rates are well-controlled. - Continue home regimen of metoprolol. Assessment & Plan (09/17/2024 6:40 PM EST): Impaired systolic function on most recent echocardiogram at [facility]. Will avoid diltiazem if possible due to the decreased ejection fraction. Patient was not on anticoagulation prior to admission Patient had rapid ventricular response related to acute sepsis and hypotension. Volume resuscitated and now rates are well-controlled. - Continue home regimen of metoprolol. Assessment & Plan (09/16/2024 6:39 PM EST): Impaired systolic function on most recent echocardiogram at [facility]. Will avoid diltiazem if possible due to the decreased ejection fraction. Patient was not on anticoagulation prior to admission Patient had rapid ventricular response related to acute sepsis and hypotension. Volume resuscitated and now rates are well-controlled. - Continue home regimen of metoprolol. Assessment & Plan (09/15/2024 4:37 AM EST): Impaired systolic function on most recent echocardiogram at [facility]. Will avoid diltiazem if possible due to the decreased ejection fraction. She is asymptomatic. I will continue with her outpatient dosing of metoprolol. We will follow heart rate as we give gentle IV fluids. Acute respiratory failure with hypoxia Assessment & Plan (09/18/2024 6:19 PM EST): Prior to her [facility] admission she was on room air. At discharge from [facility] 09/09 she was on 2 L/min. She is now requiring additional supplemental oxygen up to 3 L. Likely secondary to influenza A. -O2 supplementation to keep sats 92 to 96% Assessment & Plan (09/17/2024 6:40 PM EST): Prior to her [facility] admission she was on room air. At discharge from [facility] 09/09 she was on 2 L/min. She is now requiring additional supplemental oxygen up to 3 L. Likely secondary to influenza A. -O2 supplementation to keep sats 92 to 96% Assessment & Plan (09/16/2024 6:39 PM EST): Prior to her [facility] admission she was on room air. At discharge from [facility] 09/09 she was on 2 L/min. She is now requiring additional supplemental oxygen up to 3 L. Likely secondary to influenza A. -O2 supplementation to keep sats 92 to 96% Assessment & Plan (09/15/2024 4:37 AM EST): Prior to her [facility] admission she was on room air. At discharge from [facility] 09/09 she was on 2 L/min. She is now requiring additional supplemental oxygen. Likely secondary to influenza A. We will provide supplemental oxygen and wean as able. History of non-ST elevation myocardial infarctio n (NSTEMI) 08/19/2004 Overview (09/15/2024): Lateral wall Arthritis Coronary artery disease Gastroesophageal reflux disease Hyperlipidemia Hypertensive disorder Chronic systolic heart failure Assessment & Plan (09/18/2024 6:19 PM EST): proBNP is very elevated, but no rales on exam, no JVD and no lower extremity edema. Patient was hypotensive and received aggressive IV fluids in the ED. Furosemide is on hold. - Patient now euvolemic and blood pressures are stable - Lasix remains on hold - Daily weights and strict I's and O's - 09/18 restarted Lasix at a decreased dose (was previously on 80 mg twice daily restarted 80 mg once daily in light of the continued elevated creatinine) Assessment & Plan (09/17/2024 6:40 PM EST): proBNP is very elevated, but no rales on exam, no JVD and no lower extremity edema. Patient was hypotensive and received aggressive IV fluids in the ED. Furosemide is on hold. - Patient now euvolemic and blood pressures are stable - Lasix remains on hold - Daily weights and strict I's and O's - Low threshold to restart Lasix Assessment & Plan (09/16/2024 6:39 PM EST): proBNP is very elevated, but no rales on exam, no JVD and no lower extremity edema. Patient was hypotensive and received aggressive IV fluids in the ED. Furosemide is on hold. - Patient now euvolemic and blood pressures are stable - Lasix remains on hold - Daily weights and strict I's and O's - Low threshold to restart Lasix Assessment & Plan (09/15/2024 4:37 AM EST): proBNP is very elevated, but no rales on exam, no JVD and no lower extremity edema. She seems hypovolemic probably related to insensible loss from fevers. We will hold furosemide. We will monitor daily weights and I's and O's. Chronic obstructive pulmonary disease Assessment & Plan (09/18/2024 6:19 PM EST): Not in an exacerbation. She will have as needed DuoNebs. Assessment & Plan (09/17/2024 6:40 PM EST): Not in an exacerbation. She will have as needed DuoNebs. Assessment & Plan (09/16/2024 6:39 PM EST): Not in an exacerbation. She will have as needed DuoNebs. Assessment & Plan (09/15/2024 4:37 AM EST): Not in an exacerbation. She will have as needed DuoNebs. Paroxysmal atrial fibrillation Moderate tricuspid regurgitation Overview (09/15/2024): Moderate to severe on TTE 08/2024 at [facility] Encounters Date Type Department Care Team Description 01/05/2025 Orders Only [facility] [address], [place] [phone] Homehealth, Interface MD Padmini 01/04/2025 Episode Documentatio n Update [facility] [address] [place] [phone] Yessy Macias 01/02/2025 Home Care Visit [facility] [address], [place] [phone] Blossom Bazan, KARI SN NON OASIS DISCHARGE NON VISIT/TELEPHONE 12/30/2024 9:30 AM EDT Home [facility] Visit [facility] [address] [place] [address] Blossom Bazan RN SN OASIS TRANSFER 12/22/2024 1:00 PM EDT Home [facility] Visit [facility] [address] [place] [address] Blossom Bazan RN SN HOME VISIT 12/16/2024 11:00 AM EDT [facility] Visit [facility] [address] [place] [address] Eliana Graham, PT PT DISCIPLINE DISCHARGE VISIT 12/15/2024 10:30 AM EDT Home [facility] Visit [facility] [address] [place] [address] Blossom Bazan RN SN HOME VISIT 12/14/2024 Episode Documentatio n Update [facility] [address] [place] [address] Yessy Macias 12/09/2024 1:30 PM EDT Home [facility] Visit [facility] [address] [place] [address] Eliana Graham, PT PT HOME VISIT 12/08/2024 10:30 AM EDT Home [facility] Visit [facility] [address] [place] [address] Blossom Bazan RN SN HOME VISIT 12/04/2024 10:00 AM EDT [facility] Visit [facility] [address] [place] [address] Eliana Graham, PT PT HOME VISIT from Last 3 Months Social History Tobacco Use Types Packs/Day Years Used Date Smoking Tobacco: Former Cigarettes Tobacco Cessation:Counseling Given: Not Answered Home Health Assessment: Transportation Answer Date Recorded Lack of Transportation (Medical) No 01/02/2025 Lack of Transportation (Non-Medical) No 01/02/2025 Patient Unable or Declines to Respond No 01/02/2025 Education Answer Date Recorded Are you interested in more education? Not on ga e 09/08/2024 Are you concerned about learning? Not on file 09/08/2024 No 09/08/2024 No 09/08/2024 Digital Access Answer Date Recorded No 09/08/2024 No 09/08/2024 Reliable internet access at home? Not on file 09/08/2024 Device with a working camera? Not on file Intimate Partner Violence Answer Date R ecorded Are you denied basic needs s uch as food, clothing, or medical care? Patient unable to respond 09/14/2024 In the past 12 months have y ou been in a relationship with a person who hurts, threatens, or tries to control you? Patient unable to respond 09/14/2024 Are you denied basic needs s uch as food, clothing, or medical care? Patient unable to respond 09/14/2024 In the past 12 months have y ou been in a relationship with a person who hurts, threatens, or tries to control you? Patient unable to respond 09/14/2024 Comments Unknown Sex and Gender Information Value Date Recorded Sex Assigned at Female 09/14/2024 11:35 PM EST Legal Sex Female 2:49 PM EST Gender Identity Female 09/14/2024 11:35 PM EST Sexual Orientation Straight 09/14/2024 11 :35 PM EST Last Filed Vital Signs Vital Sign Reading Time Taken Comments Blood Pressure 122/80 12/22/2024 1:10 PM EDT Pulse 102 12/22/2024 1:10 PM EDT Temperature 36.6 C (97.8 F) 12/22/2024 1:10 PM EDT Respiratory Rate 20 12/22/2024 1:10 PM EDT Oxygen Saturation 92% 12/22/2024 1:10 PM EDT Inhaled Oxygen Concentration - - Weight 76.2 kg (168 lb 1.6 oz) 09/18/2024 6:40 A M EST Height 167.6 cm (5' 6 ) 09/17/2024 6:51 AM EST Body Mass Index 27.13 09/17/2024 6:51 AM EST Plan of Treatment Health Maintenance Due Date Last Done Comments Adult Td,Tdap Booster 1935 DEPRESSION SCREENING 1947 PNEUMOCOCCAL VACCINES (50+ years) (1 of 2 - PCV) 1954 ZOSTER VACCINES (1 of 2) 1985 OSTEOPOROSIS SCREENING INITIAL (ONE-TIME) 2000 RSV VACCINE (1 - 1-dose 75+ series) 2010 COVID-19 VACCINE (2023- season) 2024 POTASSIUM LEVEL 11/02/2025 11/02/2024, 10/17, 10/26/2024, Additional history exists HEPATITIS A VACCINES Aged Out No long er eligible based on patient's age to complete this topic HIB VACCINES Aged Out No longer eligi ble based on patient's age to complete this topic MENINGOCOCCAL VACCINES (ACWY) Aged Out No longer eligible based on patient's age to complete this topic MENINGOCOCCAL VACCINES (B) Aged Out N o longer eligible based on patient's age to complete this topic Medical Devices Not on file Procedures Procedure Name Priority Date/Time Associated Diagnosis Comments COMPREHENSIVE METABOLIC PANEL Routine 11/02/2024 6:50 AM EDT Congestive heart failure, unspecified HF chronicity, unspecified heart failure type from Last 3 Months or Most Recently Relevant to Health Maintenance Results * (ABNORMAL) Comprehensive metabolic panel (11/02/2024 6:50 AM EDT) SODIUM 137 133 - 146 mmol/L [facility] POTASSIUM 4.4 3.3 - 5.1 mmol/L [facility] CHLORIDE 101 96 - 108 mmol/L [facility] CO2 23 21 - 35 mmol/L [facility] BUN 31(H) 6 - 19 mg/dL [facility] CREATININE 1.50 0.5 - 1.5 mg/dL [facility] GLUCOSE 103(H) 70 - 99 mg/dL [facility] ALBUMIN 3.2(L) 3.9 - 4.8 g/dL [facility] TOTAL PROTEIN 6.4(L) 6.5 - 8.0 g/dL [facility] CALCIUM 9.5 8.4 - 10.3 mg/dL [facility] ALKALINE PHOSPHATASE 69 39 - 117 U/L [facility] TOTAL BILIRUBIN 0.3 0.0 - 1.2 mg/dL [facility] AST 9 0 - 37 U/L [facility] ALT <5 0 - 40 U/L [facility] GLOBULIN 3.2 1 - 4.8 g/dL [facility] EGFR 33(L) >59 mL/min/1.7 3m2 [facility] Comment:Estimated glomerular filtration rate calculated using the CKD-EPI refit equation. ANION GAP 17 10 - 20 mmol/L [facility] 11/02/2024 6:50 AM EDT 11/02/2024 9:07 AM EDT us Pedro Luis Lackey MD LAB BLOOD ORDERABLES Final Resul t [facility] [address] [place] [address] from Last 3 Months or Most Recently Relevant to Health Maintenance Insurance MEDICARE PART A & B [facility] MEDICARE PART A [place] [id number] [place]IC[place] [id number] [place]IC[place] B [facility] Advance Directives For more information, please contact: [phone] (9AM - 5PM [facility], Saturday-Saturday) Documents on File Type Date Recorded Patient Card Seller Expl anation Healthcare Proxy 09/24/2024 2:53 PM [facility] 09/24/2024 2:53 PM [facility] 09/17/2024 10:26 AM [facility] Healthcare Proxy 09/17/2024 10:24 AM Healt hcare Proxy * Full Code (Latest Code Status on File) Date Activated Date Inactivated Comments 09/15/2024 4:37 AM Question Answer Comments Code Status Confirmed With: Other (specify below ) Code Discussion Comments: Presumed Care Teams Auto Body Man Relationship Specialty Start Date End Date Irving Meneses MD PCP - General Internal Medicine 11/02/24 Additional Source Comments The information contained in this document represents components of the legal health record. It is not the complete legal health record.[facility]
--- OUTSIDE RECORDS SUMMARY | 2025-03-05 13:19 | XMS_ITS | Patient Health Record ---
Author Organization [facility] Address [address] [place] [address] Care Team Providers Care Aoc [employer] Operations Staff Officer Name Role Phone Dl Dowd Jr Reason For Referral No Information Plan Of Treatment No Information
[2025-03-05 13:20] VITALS: BP 100/60; PULSE 89
== END 2025-03-05 13:47 | disposition home or self-care (01) ==
LOC: HO.HCS 13:15
PROVIDERS: PCP Internal Medicine
DX: I48.91 Unspecified atrial fibrillation (principal); I50.9 Heart failure, unspecified; I25.10 Atherosclerotic heart disease of native coronary artery without angina pectoris; I10 Essential (primary) hypertension; I73.9 Peripheral vascular disease, unspecified; Z09 Encounter for follow-up examination after completed treatment for conditions other than malignant neoplasm
CPT/HCPCS: 99214; G2211

== ENCOUNTER → 2025-03-05 13:15 | Outpatient (BNVA) | payer MEDICARE, MEDICAID, SELFPAY | PROVIDERS: PCP Internal Medicine | DX: Z09 Encounter for follow-up examination after completed treatment for conditions other than malignant neoplasm (principal); I48.91 Unspecified atrial fibrillation; I11.0 Hypertensive heart disease with heart failure; I50.9 Heart failure, unspecified; I73.9 Peripheral vascular disease, unspecified; I25.10 Atherosclerotic heart disease of native coronary artery without angina pectoris | CPT/HCPCS: 99212 ==

== ENCOUNTER 2025-03-17 12:55 | Outpatient (REF) | payer MEDICARE, MEDICAID, SELFPAY ==
--- OUTSIDE RECORDS SUMMARY | 2025-03-17 13:30 | XMS_ITS | Encounter Summary ---
Author Organization [facility] Address [address] [place] [address] Care Team Providers Care Cloth Folder Machine Name Role Phone Jessica Allen MD Primary Care Provider [phone] Encounter Details Date Type Department Care Team (Late st Contact Info) Description 01/27/2025 Lab Requisition [facility] [address] [facility] [place] [address] Jessica Allen MD [address] [place] [address] Sepsis, unspecified organism (CMS/HCC V24, CMS/[facility] V28) Social History Tobacco Use Types Packs/Day [...] LAB CHEMISTRY METHOD 01/27/2025 10:30 AM EDT [facility] Potassium 4.0 3.5 - 5.5 mmol/L LAB CHEMISTRY METHOD 01/27/2025 10:30 AM [facility] Chloride 106 96 - 110 mmol/L LAB CHEMISTRY METHOD 01/27/2025 10:30 AM [facility] CO2 25 21 - 32 mmol/L LAB CHEMISTRY METHOD 01/27/2025 10:30 AM [facility] Anion Gap 8 3 - 11 LAB CHEMISTRY METHOD 01/27/2025 10:30 AM [facility] Glucose 87 70 - 100 mg/dL LAB CHEMISTRY METHOD 01/27/2025 10:30 AM [facility] BUN 29(H) 5 - 25 mg/dL LAB CHEMISTRY METHOD 01/27/2025 10:30 AM [facility] Creatinine 1.46(H) 0.50 - 1.10 mg/dL LAB CHEMISTRY METHOD 01/27/2025 10:30 AM [facility] eGFR 34(L) >=60 mL/min/1. 73m2 LAB CHEMISTRY METHOD 01/27/2025 10:30 AM [facility] Comment:Calculation based on the Chronic Kidney Disease Epidemiology Collaboration (CKD-EPI) equation refit without adjustment for race. BUN/Creatinine Ratio 19.9 LAB CHEMISTRY METHOD 01/27/2025 10:30 AM [facility] Calcium 8.7 8.5 - 10.5 mg/dL LAB CHEMISTRY METHOD 01/27/2025 10:30 AM [facility] Blood Venous blood specimen / Unknown Venipuncture / Unknown 01/27/2025 5:11 AM EDT 01/27/2025 8:52 AM EDT us Jessica Allen MD LAB BLOOD ORDERABLES Final Resul t [facility] [address] [place] [address], * (ABNORMAL) Complete blood count (01/27/2025 5:11 AM EDT) [facility] Signature WBC 7.7 4.8 - 10.8 K/mcL LAB HEMETOLOGY METHOD 01/27/2025 10:07 AM [facility] RBC 3.60(L) 3.80 - 4.80 M/mcL LAB HEMETOLOGY METHOD 01/27/2025 10:07 AM [facility] Hemoglobin 8.9(L) 11.5 - 16.0 g/dL LAB HEMETOLOGY METHOD 01/27/2025 10:07 AM [facility] Hematocrit 31.5(L) 35.0 - 47.0 % LAB HEMETOLOGY METHOD 01/27/2025 10:07 AM [facility] MCV 87.5 79.0 - 98.0 FL LAB HEMETOLOGY METHOD 01/27/2025 10:07 AM [facility] MCH 24.7(L) 27.0 - 32.0 pcg LAB HEMETOLOGY METHOD 01/27/2025 10:07 AM [facility] MCHC 28.3(L) 32.0 - 37.0 g/dL LAB HEMETOLOGY METHOD 01/27/2025 10:07 AM [facility] RDW 20.0(H) 11.0 - 15.0 % LAB HEMETOLOGY METHOD 01/27/2025 10:07 AM [facility] Platelets 126(L) 130 - 400 K/mcL LAB HEMETOLOGY METHOD 01/27/2025 10:07 AM [facility] MPV 10.4 7.0 - 11.0 FL LAB HEMETOLOGY METHOD 01/27/2025 10:07 AM [facility] NRBC 0.0 <1.0 % LAB HEMETOLOGY METHOD 01/27/2025 10:07 AM EDT [facility] NRBC Absolute 0.00 <0.10 K/mcL LAB HEMETOLOGY METHOD 01/27/2025 10:07 AM EDT [facility] Blood Venous blood specimen / Unknown Venipuncture / Unknown 01/27/2025 5:11 AM EDT 01/27/2025 8:52 AM EDT us Jessica Allen MD LAB BLOOD ORDERABLES Final Resul t [facility] [address] [place] [address], documented in this encounter Visit Diagnoses Diagnosis Sepsis, unspecified organism (CMS/HCC V24, CMS/HCC V28) documented in this encounter Care Teams Cloth Folder Machine Relationship Specialty Start Date End Date Jessica Allen MD [address] [place] [address] [address] [place] [address] PCP - General Geriatric Medicine 01/03/25 documented as of this encounter
--- OUTSIDE RECORDS SUMMARY | 2025-03-17 13:30 | XMS_ITS | Clinical Summary ---
Author Organization [facility] Address [address] [place] [address] Phone Care Team Providers Care Magnetic Resonance Imaging Coordinator Name Role Phone Irving Meneses MD Primary Care Provider [phone] Allergies No known active allergies Medications rosuvastatin [...] has been confused ever since presentation to [facility] 09/09. Healthcare proxy invoked. Dementia/delirium protocol in place. Assessment & Plan (09/17/2024 6:40 PM EST): Patient's daughter states that she has been confused ever since presentation to [facility] 09/09. Healthcare proxy invoked. Dementia/delirium protocol in place. Assessment & Plan (09/16/2024 6:39 PM EST): Patient's daughter states that she has been confused ever since presentation to [facility] 09/09. Healthcare proxy invoked. Dementia/delirium protocol in place. Assessment & Plan (09/15/2024 4:37 AM EST): Patient's daughter states that she has been confused ever since presentation to [facility] 09/09. Healthcare proxy invoked. Dementia/delirium protocol in place. Acute kidney injury 09/15/2024 Assessment & Plan (09/18/2024 6:19 PM EST): Unknown baseline. Recent admission to [facility] where she had NEEL and creatinine [...] PM EST): Unknown baseline. Recent admission to [facility] where she had NEEL and creatinine peaked at 2.1. Creatinine down trended, but is now elevated again at 2.5 on admission. -Treated with IV fluids and creatinine down to 2.3 - 09/17 off IVF still holding diuretic -Avoid nephrotoxic medications. . Assessment & Plan (09/16/2024 6:39 PM EST): Unknown baseline. Recent admission to [facility] where she had NEEL and creatinine peaked at 2.1. Creatinine down trended, but is now elevated again at 2.5 on admission. -Treated with IV fluids and creatinine down to 2.4 -Avoid nephrotoxic medications. . Assessment & Plan (09/15/2024 4:37 AM EST): Unknown baseline. Recent admission to [facility] where she had NEEL and creatinine [...] systolic function on most recent echocardiogram at [facility]. Will avoid diltiazem if possible due to the decreased ejection fraction. Patient was not on anticoagulation prior to admission Patient had rapid ventricular response related to acute sepsis and hypotension. Volume resuscitated and now rates are well-controlled. - Continue home regimen of metoprolol. Assessment & Plan (09/17/2024 6:40 PM EST): Impaired systolic function on most recent echocardiogram at [facility]. Will avoid diltiazem if possible due to the decreased ejection fraction. Patient was not on anticoagulation prior to admission Patient had rapid ventricular response related to acute sepsis and hypotension. Volume resuscitated and now rates are well-controlled. - Continue home regimen of metoprolol. Assessment & Plan (09/16/2024 6:39 PM EST): Impaired systolic function on most recent echocardiogram at [facility]. Will avoid diltiazem if possible due to the decreased ejection fraction. Patient was not on anticoagulation prior to admission Patient had rapid ventricular response related to acute sepsis and hypotension. Volume resuscitated and now rates are well-controlled. - Continue home regimen of metoprolol. Assessment & Plan (09/15/2024 4:37 AM EST): Impaired systolic function on most recent echocardiogram at [facility]. Will avoid diltiazem if possible due to the decreased ejection fraction. She is asymptomatic. I will continue with her outpatient dosing of metoprolol. We will follow heart rate as we give gentle IV fluids. Acute respiratory failure with hypoxia Assessment & Plan (09/18/2024 6:19 PM EST): Prior to her [facility] admission she was on room air. At [facility] she was on 2 L/min. She is now requiring additional supplemental oxygen up to 3 L. Likely secondary to influenza A. -O2 supplementation to keep sats 92 to 96% Assessment & Plan (09/17/2024 6:40 PM EST): Prior to her [facility] admission she was on room air. At discharge from [facility] she was on 2 L/min. She is now requiring additional supplemental oxygen up to 3 L. Likely secondary to influenza A. -O2 supplementation to keep sats 92 to 96% Assessment & Plan (09/16/2024 6:39 PM EST): Prior to her [facility] admission she was on room air. At discharge from [facility] [place] she was on 2 L/min. She is now requiring additional supplemental oxygen up to 3 L. Likely secondary to influenza A. -O2 supplementation to keep sats 92 to 96% Assessment & Plan (09/15/2024 4:37 AM EST): Prior to her [facility] admission she was on room air. At discharge from [facility] [place] she was on 2 L/min. She [...] Moderate to severe on TTE 08/2024 at [facility] Encounters Date Type Department Care Team Description 01/05/2025 Orders Only [facility] [address] [place], [place] [phone] Homehealth, Lorelei Washington MD 01/04/2025 Episode Documentatio n Update [facility] [address], [place] [phone] Yessy Macias 01/02/2025 Home Care Visit [facility] [address] [place], [place] [phone] Blossom Bazan, KARI SN NON OASIS DISCHARGE NON VISIT/TELEPHONE 12/30/2024 9:30 AM EDT Home Care Visit [facility] [address] [place] [address] Blossom Bazan RN SN OASIS TRANSFER 12/22/2024 1:00 PM EDT Home [facility] Visit [facility] [address] [place] [address] Blossom Bazan, KARI SN HOME VISIT 12/16/2024 11:00 AM EDT Home Care Visit [facility] [address] [place] [address] Eliana Graham, PT PT DISCIPLINE DISCHARGE VISIT from Last 3 Months Social History [...] - 1-dose 75+ series) 2010 COVID-19 VACCINE ( season) 2024 POTASSIUM LEVEL 11/02/2025 11/02/2024, 10/17, [...] EDT) SODIUM 137 133 - 146 mmol/L [facility] POTASSIUM 4.4 3.3 - 5.1 mmol/L [facility] CHLORIDE 101 96 - 108 mmol/L [facility] CO2 23 21 - 35 mmol/L [facility] BUN 31(H) 6 - 19 mg/dL [facility] CREATININE 1.50 0.5 - 1.5 mg/dL [facility] GLUCOSE 103(H) 70 - 99 mg/dL [facility] ALBUMIN 3.2(L) 3.9 - 4.8 g/dL [facility] TOTAL PROTEIN 6.4(L) 6.5 - 8.0 g/dL [facility] CALCIUM 9.5 8.4 - 10.3 mg/dL [facility] ALKALINE PHOSPHATASE 69 39 - 117 U/L [facility] TOTAL BILIRUBIN 0.3 0.0 - 1.2 mg/dL [facility] AST 9 0 - 37 U/L [facility] ALT <5 0 - 40 U/L [facility] GLOBULIN 3.2 1 - 4.8 g/dL [facility] EGFR 33(L) >59 mL/min/1.7 3m2 [facility] Comment:Estimated glomerular filtration rate calculated using the CKD-EPI refit equation. ANION GAP 17 10 - 20 mmol/L [facility] 11/02/2024 6:50 AM EDT 11/02/2024 9:07 AM EDT us Pedro Luis Lackey MD LAB BLOOD ORDERABLES Final Resul t [facility] [address] [place] [address] from Last 3 Months or Most Recently Relevant to Health Maintenance Insurance MEDICARE PART A & [place] [id number] [place]IC[place] [id number] MEDIC[place] [id number] [place] [id number] [facility] [address] [facility] Advance Directives For more information, please contact: [phone] (9AM - 5PM [facility], Saturday-Saturday) Documents on File Type Date Recorded Patient Educational Programming Director Expl anation Healthcare Proxy 09/24/2024 2:53 PM [facility] 09/24/2024 2:53 PM [facility] 09/17/2024 10:26 AM [facility] Healthcare Proxy 09/17/2024 10:24 AM Healt hcare Proxy * Full Code (Latest Code Status on File) Date Activated Date Inactivated Comments 09/15/2024 4:37 AM Question Answer Comments Code Status Confirmed With: Other (specify below ) Code Discussion Comments: Presumed Care Teams Magnetic Resonance Imaging Coordinator Relationship Specialty Start Date End Date Irving Meneses MD [address] [place] [address] Dr [facility] [address] PCP - General Internal Medicine 11/02/24 Additional Source Comments The information contained in this document represents components of the legal health record. It is not the complete legal health record.[facility]
--- OUTSIDE RECORDS SUMMARY | 2025-03-17 13:31 | XMS_ITS | Clinical Summary ---
Author Organization [employer] Address [address] [place] [address] Care Team Providers Care Log Cutter Name Role Phone Unavailable Primary Care Provider [...] 5 season) 2024 11/23/2020 Influenza Vaccine (#1) 2025 Dental X-Ray: Full Mouth 11/23/2025 11/22/2022 HIB [...] Maintenance Insurance DENTAL - N FULL (MEDICAID) [facility] MEDICAID STAND ADULT
--- OUTSIDE RECORDS SUMMARY | 2025-03-17 13:31 | XMS_ITS | Patient Health Record ---
Author Organization [facility] Address [address] [place] [address] Care Team Providers Care Tenter Feeder Name Role Phone Dl Dowd Jr [phone] Reason For Referral No Information Plan Of Treatment No Information
== END 2025-03-17 12:56 | disposition home or self-care (01) ==
LOC: HO.SH 12:55
PROVIDERS: Visit Provider Internal Medicine
DX: Z01.118 Encounter for examination of ears and hearing with other abnormal findings (principal); H90.3 Sensorineural hearing loss, bilateral
CPT/HCPCS: 92557

== ENCOUNTER 2025-03-23 12:06 | Inpatient (IN) | payer MEDICARE, MEDICAID, SELFPAY ==
[2025-03-23] VITALS (19 sets, daily range): BP systolic 90–134; BP diastolic 47–75; PULSE 88–112; RESP 14–29; TEMP 36–36.6; O2SAT 95–100; BMI 25.4; BMI 23.9
--- NOTE | ~2025-03-23 | XR_ITS ---
EXAMINATION: XR CHEST 1 VIEW HISTORY: weakness COMPARISON: Comparison is made with the prior examination dated 01/15/2025. FINDINGS: A single AP portable view of the chest performed at 12:40 PM is submitted. There is prominence of the pulmonary vasculature, consistent with congestion. There are small bilateral pleural effusions. Underlying atelectasis or pneumonia at the left lung base is not excluded. There is no pneumothorax. The heart is enlarged. The aorta is calcified. There is degenerative disc disease of the spine. XR/XR chest 1V IMPRESSION: Cardiomegaly, pulmonary vascular congestion, and small bilateral pleural effusions. This is difficult to exclude underlying atelectasis or pneumonia at the left lung base. Electronically signed by: Phan Arias MD 03/23/2025 12:58 PM EDT
--- NOTE | 2025-03-23 12:35 | ECG_ITS ---
Test Reason : TACHY Blood Pressure : */* mmHG Vent. Rate : 103 BPM Atrial Rate : * BPM P-R Int : * ms QRS Dur : 72 ms QT Int : 334 ms P-R-T Axes : * 71 10 degrees QTcB Int : 437 ms Atrial fibrillation with rapid ventricular response Abnormal ECG When compared with ECG of 15-Jan-2025 11:55, No significant change was found Referred By: Leydi Azar Electronically Signed By: CYNTHIA BOWER
--- NOTE | 2025-03-23 12:42 | ED.GENADULT ---
HPI - General Adult General Chief complaint: General Medical Stated complaint: LOW H&H FROM [facility] PER EMS Time Seen by Provider: 03/23/25 12:17 Source: patient, family, EMS and old records reviewed Mode of arrival: EMS Limitations: other (hard of hearing poor historian) History of Present Illness ED Provider: BITA HPI narrative: 89 yo female with PMH of afib on eliquis 2.5mg BID, COPD on 2L NC, CHF ED 35-40%, cardiorenal syndrome, HTN, Fe deficiency anemia, DNR/DNI s/p GIB work up in December found to have esophagitis and 3 cecum AVMs s/p APC she comes from [facility] for lethargy though it is not clear how long she has been lethargic. She has no complaints but is very hard of hearing. They checked labs today and found her to have a hemoglobin of 6.3. She states she has not noticed any bleeding, she denies pain, dyspnea, n/v/d. MD complaint: weakness, abnormal hemoglobin Onset (ago): unknown Radiation: non-radiation Severity: mild Relieving factors: none Exacerbating factors: none Associated symptoms: denies other symptoms Treatments prior to arrival: none Related Data Home Medications ?Medication ?Instructions ?Recorded ?Confirmed brimonidine 0.2 % eye drops 1 drp ophthalmic (eye) TID macular 04/17/23 01/15/25 degeneration rosuvastatin 20 mg tablet 20 mg PO BEDTIME 08/27/24 01/15/25 acetaminophen 325 mg tablet 975 mg PO TID 01/15/25 01/15/25 magnesium hydroxide 400 mg/5 mL 30 ml PO DAILY PRN Constipation 01/15/25 01/15/25 oral suspension (Milk of Magnesia) sodium phosphates 19 gram-7 118 ml [place] DAILY PRN Constipation 01/15/25 01/15/25 gram/118 mL enema (Fleet Enema) Previous Rx's ?Medication ?Instructions ?Recorded RECLINER LIFT CHAIR #1 ea 07/26/20 Raised [place] Seat with handels #1 ea 02/08/22 ROLLATOR #1 ea 10/23/22 blood pressure monitor (Blood #1 ea 10/23/22 Pressure Kit) Orthpedic Shoes #1 ea 04/12/23 diaper,brief,adult,disposable #68 ea 04/02/24 (Depend Underwear For Women XL) adult pull ups/ Extra large #1 ea 04/24/24 wipes #5 ea 06/18/24 Portable ramp #1 ea 10/21/24 wheel chair #1 ea 10/21/24 apixaban 2.5 mg tablet 2.5 mg PO BID #60 tabs 10/27/24 metoprolol succinate 25 mg 25 mg PO BID #60 tabs 11/06/24 tablet,extended release 24 hr amlodipine 10 mg tablet 10 mg PO DAILY #90 tabs 11/09/24 Held on 01/20/25. Instructions: Monitor BP at facility to see if need to be restarted or discontinued potassium chloride 20 mEq 20 meq PO DAILY 90 days #90 tabs 11/10/24 tablet,extended release(part/cryst) diclofenac sodium 1 % topical gel 4 g topical QID PRN for pain #100 12/14/24 grams furosemide 40 mg tablet 40 mg PO DAILY #30 tabs 12/22/24 magnesium oxide 400 mg (241.3 mg 400 mg PO DAILY #90 tabs 01/02/25 magnesium) tablet vibegron 75 mg tablet (Gemtesa) 75 mg PO DAILY #90 tabs 01/06/25 pantoprazole 40 mg tablet,delayed 40 mg PO BID #60 tabs 01/20/25 release Allergies Allergy/AdvReac Type Severity Reaction Status Date / Time atorvastatin AdvReac Intermediate myalgias Verified 03/23/25 12:30 Review of Systems Review of Systems: Constitutional : No Fever, No Chills, No Fatigue ENT/Mouth : No sore throat, No Rhinorrhea Eyes: No Eye Pain, No Swelling, No Redness Cardiovascular : No Chest Pain, No SOB, No Dyspnea on Exertion Respiratory : No Cough, No Sputum Gastrointestinal : No Nausea, No Vomiting, No Diarrhea, No abdominal Pain Genitourinary : No Dysuria, No Urinary Frequency, No Hematuria, Musculoskeletal : No joint pain, No Myalgias, No Joint Swelling Skin : No Skin Lesions, No rash Neuro : No Weakness, No Numbness, No Dizziness, no Headache All other systems reviewed and are negative [facility] Past Medical History Attestation statement: The following information was validated with the patient. Source: old records reviewed Medical History Congestive heart failure Coronary artery disease Acute congestive heart failure Atrial fibrillation with rapid ventricular response PAD (peripheral artery disease) Cholelithiasis CHF (congestive heart failure) Falls Afib Macular degeneration Overweight (BMI 25.0-29.9) COVID-19 vaccine administered History of COVID-19 Restrictive lung disease Edema Current smoker Iron deficiency anemia Tobacco abuse Carotid bruit Obesity (BMI 30-39.9) Depression Insomnia Allergic rhinitis Elevated TSH GERD without esophagitis Impaired fasting glucose Anemia Knee osteoarthritis Vitamin D deficiency Chronic kidney disease (CKD), stage III (moderate) Pure hypercholesterolemia Benign essential hypertension Surgical History Hx of total knee arthroplasty Hx of colonoscopy Hx of cardiac cath Hx of bilateral cataract extraction History of hysterectomy Family History Family History Father Medical history unknown Mother CVD (cardiovascular disease) Social History Social History Household Members: Other Household Members Other:: Daughter and grandson Housing: Assisted Living Facility Are you a primary patient care representative to a significant other at home: No Do you presently have visiting nurse or other home services: No Unable to assess alcohol history related to: Unknown Alcohol intake: never Comment: aware of trip hazard Patient Tobacco Use Status: Former Tobacco user Tobacco use type: Cigarette Cigarette Packs Per Day: 1 Cigarettes Per Day: 20.0 Years Smoked: 70 e-Cigarette/Vaping Use: Never Used Second Hand Smoke Exposure: Yes Advance Directives Date on File: 01/21/25 service: No Current occupational status: retired and disabled Cognitive needs: No (cane/walker) Hearing needs: No Vision needs: No Physical Exam ED Vital Signs: Vital Signs - 24 hr 03/23/25 12:23 03/23/25 12:33 Temperature 97.8 F 97.8 F Pulse Rate 103 H 103 H Respiratory Rate 18 18 Blood Pressure 97/53 L 97/53 L Pulse Oximetry 97 97 Oxygen Delivery Method Room Air Room Air BMI result Body Mass Index 25.4 Appearance: Alert. Oriented X to self and place. No acute distress. Eyes: Pupils equal, round and reactive to light. ENT: Pharynx normal. Neck: Normal inspection. Neck supple. CVS: Normal heart rate and rhythm. Pulses normal. Respiratory: No respiratory distress. Breath sounds normal. Abdomen: Soft and nontender. Rectal: light brown stool Skin: Skin warm and dry. pale skin color. Normal skin turgor. Extremities: No lower extremity edema. No calf ttp Neuro: Oriented X 2. No motor deficit. No sensory deficit. CN2-12 intact Course Course Course Narrative: call to HCP Gianna [phone] okay to transfuse blood products aware of plan and work up thus far in ED Medications Administered Discontinued Medications Generic Name Dose Route Start Last Admin Trade Name Vadim PRN Reason Stop Dose Admin Pantoprazole Sodium 40 mg 03/23/25 12:34 03/23/25 12:58 Pantoprazole Sodium 40 Mg/10 Ml Vial IVPUSH 03/23/25 12:35 40 mg ONCE ONE Administration Medical Decision Making Medical Decision Making [facility] Narrative: 89 yo female with PMH of afib on eliquis 2.5mg BID, COPD on 2L NC, CHF with EF 35-40%, cardiorenal syndrome, HTN, Fe deficiency anemia, DNR/DNI s/p GIB work up in December found to have esophagitis and 3 cecum AVMs s/p APC here with c/o weakness and anemia at this time will obtain basic labs, occult stool start on IV protonix and transfuse. I will notify her HCP as well I saw it was invoked recently. Plan to admit. Will need lasix after transfusions Differential Diagnosis Differential Diagnoses: The differential diagnosis associated with the presentation includes GIB, avm, weakness, viral syndrome Admission/Observation Consideration of admission/observation: Escalation of care including admission/observation considered admit for transfusion Consult Healthcare Provider Management of the patient was discussed with: Hospitalist Lab Data [facility] Lab Attestation statement: I reviewed the patient's lab results. 03/23/25 12:42 03/23/25 12:42 Labs: Lab Results 03/23/25 03/23/25 03/23/25 Range/Units 12:41 12:42 12:50 WBC 7.8 (4.8-10.8) X10*3/uL RBC 3.10 L (4.20-5.50) X10*6/uL Hgb 6.3 L* D (12.0-16.0) g/dl Hct 24.2 L (37.0-47.0) % MCV 78.1 L (80.0-98.0) fL MCH 20.3 L (27.0-33.0) pg MCHC 26.0 L (31.0-35.0) g/dl RDW 19.9 H (11.0-16.0) % Plt Count 223 (160-400) X10*3/uL MPV 9.8 (9.4-12.3) fL Immature Gran % (Auto) 0.4 (0.0-0.4) % Neut % (Auto) 71.2 (45-73) % Lymph % (Auto) 15.2 L (20-40) % [place] % (Auto) 10.0 (2-11) % Eos % (Auto) 2.7 (0-4) % Baso % (Auto) 0.5 (0-2) % Lymph # (Auto) 1.2 (1.2-4.9) X10*3/uL [place] # (Auto) 0.8 (0.1-1.2) X10*3/uL Eos # (Auto) 0.2 (0.0-0.4) X10*3/uL Baso # (Auto) 0.0 (0.0-0.2) X10*3/uL Abs Immat Gran (auto) 0.03 (0.00-0.03) X10*3/uL Absolute Neuts (auto) 5.6 (2.0-8.3) x10*3/uL Absolute Nucleated RBC 0.050 H (0.0-0.012) X10*3/uL Nucleated RBC % (auto) 0.6 H (0.0-0.2) /100WBC VBG pH (7.32-7.43) VBG pCO2 mmHg VBG pO2 mmHg VBG HCO3 (22-26) mmol/L VBG O2 Saturation VBG Base Excess mmol/L Sodium 137 (135-145) mmol/L Potassium 4.6 D (3.3-5.1) mmol/L Chloride 101 (96-108) mmol/L Carbon Dioxide 28 (22-29) mmol/L Anion Gap 13 (12-20) BUN 23 H (9-16) mg/dL Creatinine 1.87 H (0.5-1.4) mg/dL Estim Creat Clear Calc 20.7 Estimated GFR 25 Random Glucose 130 H (60-115) mg/dL Lactic Acid 1.7 (0.5-2.0) mmol/L Calcium 8.6 (8.4-10.2) mg/dL Magnesium 1.8 (1.6-2.6) mg/dL Total Bilirubin 0.6 (0.0-1.0) mg/dL Direct Bilirubin 0.3 (0.0-0.5) mg/dL AST 23 (5-31) U/L ALT < 6 (0-31) U/L Alkaline Phosphatase 83 (39-117) U/L Troponin I High Sens 7.9 (<3.5-17.0) ng/L C-Reactive Protein 1.86 H (< or = 0.50) mg/dL B-Natriuretic Peptide 1486 H (<100) pg/mL Total Protein 6.1 L (6.5-8.0) g/dL Albumin 2.9 L (3.5-5.0) g/dL Lipase 13 (8-78) U/L Procalcitonin 0.05 ng/mL Stool Occult Blood (NEGATIVE) Influenza Type A (PCR) NEGATIVE (Negative) Influenza Type B (PCR) NEGATIVE (Negative) RSV RNA Qual (PCR) NEGATIVE (Negative) SARS-CoV-2 RNA (RT-PCR) NEGATIVE (Negative) Blood Type A Positive Antibody Screen NEGATIVE Crossmatch See Detail 03/23/25 03/23/25 Range/Units 12:53 12:54 WBC (4.8-10.8) X10*3/uL RBC (4.20-5.50) X10*6/uL Hgb (12.0-16.0) g/dl Hct (37.0-47.0) % MCV (80.0-98.0) fL MCH (27.0-33.0) pg MCHC (31.0-35.0) g/dl RDW (11.0-16.0) % Plt Count (160-400) X10*3/uL MPV (9.4-12.3) fL Immature Gran % (Auto) (0.0-0.4) % Neut % (Auto) (45-73) % Lymph % (Auto) (20-40) % [place] % (Auto) (2-11) % Eos % (Auto) (0-4) % Baso % (Auto) (0-2) % Lymph # (Auto) (1.2-4.9) X10*3/uL [place] # (Auto) (0.1-1.2) X10*3/uL Eos # (Auto) (0.0-0.4) X10*3/uL Baso # (Auto) (0.0-0.2) X10*3/uL Abs Immat Gran (auto) (0.00-0.03) X10*3/uL Absolute Neuts (auto) (2.0-8.3) x10*3/uL Absolute Nucleated RBC (0.0-0.012) X10*3/uL Nucleated RBC % (auto) (0.0-0.2) /100WBC VBG pH 7.38 (7.32-7.43) VBG pCO2 62 mmHg VBG pO2 71 mmHg VBG HCO3 37 H (22-26) mmol/L VBG O2 Saturation TNP VBG Base Excess 11.1 mmol/L Sodium (135-145) mmol/L Potassium (3.3-5.1) mmol/L Chloride (96-108) mmol/L Carbon Dioxide (22-29) mmol/L Anion Gap (12-20) BUN (9-16) mg/dL Creatinine (0.5-1.4) mg/dL Estim Creat Clear Calc Estimated GFR Random Glucose (60-115) mg/dL Lactic Acid (0.5-2.0) mmol/L Calcium (8.4-10.2) mg/dL Magnesium (1.6-2.6) mg/dL Total Bilirubin (0.0-1.0) mg/dL Direct Bilirubin (0.0-0.5) mg/dL AST (5-31) U/L ALT (0-31) U/L Alkaline Phosphatase (39-117) U/L Troponin I High Sens (<3.5-17.0) ng/L C-Reactive Protein (< or = 0.50) mg/dL B-Natriuretic Peptide (<100) pg/mL Total Protein (6.5-8.0) g/dL Albumin (3.5-5.0) g/dL Lipase (8-78) U/L Procalcitonin ng/mL Stool Occult Blood POSITIVE (NEGATIVE) Influenza Type A (PCR) (Negative) Influenza Type B (PCR) (Negative) RSV RNA Qual (PCR) (Negative) SARS-CoV-2 RNA (RT-PCR) (Negative) Blood Type Antibody Screen Crossmatch Independent Interpretation I performed an independent interpretation of an: EKG and Plain X-Ray (CHF) Interpretation: Rate: 103 Rhythm: afib [place]: normal Normal QRS complex. ST T wave : flat t wave lateral leads, no JARVIS qTC: 437 prior studies: afib no ischemia The study has been interpreted contemporaneously by me. . Radiology Impression Discussion of test interpretation with radiology: I have reviewed the radiologist's reading. Independent Historian Clinical information obtained from an independent historian. History obtained from or confirmed by: EMS and Other (HCP daughter) External Record Review External record reviewed: Inpatient record and Outpatient record Critical Care Time Critical Care Time Critical Care Time: Yes Total Critical Care Time: 45 Attestation: Time is exclusive of separately billable procedures. Time includes: direct patient care, patient reassessment, coordination of patient care, interpretation of data (laboratory data, pulse oximetry, chest xrays), review of patient's medical records, medical consultation and documentation of patient care. 2 units of PRBC for ABLA. Procedures excluded from critical care time: electrocardiography. I attest to this time spent taking care of the patient Discharge Plan Discharge Clinical Impression: ABLA (acute blood loss anemia) GI bleed Qualifiers: GI bleed type/associated pathology: unspecified gastrointestinal hemorrhage type Qualified Code(s): K92.2 - Gastrointestinal hemorrhage, unspecified Patient Disposition: Admitted As Inpatient Print Language: Amharic
[2025-03-23 12:53] LABS: MANUAL DIFF FLAG NO
[2025-03-23 12:55] LABS: Hematocrit 24.2 % (37.0-47.0); Imm Gran Abs Auto 0.03 X10*3/uL (0.00-0.03); Imm Gran Pct Auto 0.4 % (0.0-0.4); Lymphocytes Absolute Auto 1.2 X10*3/uL (1.2-4.9); Mean Corpuscular HGB Conc 26.0 g/dl (31.0-35.0); Mean Corpuscular Hemoglobin 20.3 pg (27.0-33.0); Mean Corpuscular Volume 78.1 fL (80.0-98.0); NRBC Abs Auto 0.050 X10*3/uL (0.0-0.012); NRBC Pct Auto 0.6 /100WBC (0.0-0.2); Platelet Count 223 X10*3/uL (160-400); Red Blood Count 3.10 X10*6/uL (4.20-5.50); White Blood Count 7.8 X10*3/uL (4.8-10.8)
[2025-03-23 12:58] LABS: Hemoglobin 6.3 g/dl (12.0-16.0)
[2025-03-23 12:59] LABS: VBG HCO3 37 mmol/L (22-26)
[2025-03-23 13:00] LABS: Venous Blood Gas Refer to POC result
[2025-03-23 13:03] LABS: OBS Int Ctl Valid YES; OBS Lot 0224; OBS1 POSITIVE (NEGATIVE)
[2025-03-23 13:20] LABS: B Type Natriuretic Peptide 1486 pg/mL (<100); Troponin-I High Sensitivity 7.9 ng/L (<3.5-17.0)
[2025-03-23 13:21] LABS: Alanine Aminotransferase < 6 U/L (0-31); Albumin Level 2.9 g/dL (3.5-5.0); Alkaline Phosphatase 83 U/L (39-117); Anion Gap 13 (12-20); Aspartate Amino Transferase 23 U/L (5-31); Blood Urea Nitrogen 23 mg/dL (9-16); Calcium 8.6 mg/dL (8.4-10.2); Carbon Dioxide 28 mmol/L (22-29); Chloride 101 mmol/L (96-108); Creatinine Clr Calc Pharmacy 20.7; Estimated Glomerular Filt Rate 25; Lipase 13 U/L (8-78); Magnesium 1.8 mg/dL (1.6-2.6); Potassium 4.6 mmol/L (3.3-5.1); Sodium 137 mmol/L (135-145); Total Protein 6.1 g/dL (6.5-8.0)
[2025-03-23 13:35] LABS: Procalcitonin 0.05 ng/mL
[2025-03-23 13:38] LABS: Resp Syncy Virus RNA Qual PCR NEGATIVE (Negative); SARS COV2 PCR INHOUSE NEGATIVE (Negative)
--- NOTE | 2025-03-23 14:12 | PM.IMHP ---
History of Present Illness Date of Service: 03/23/25 Chief Complaint: anemia 89F PMH alzheimer dementia, hfref, chronic afib on elqiuis, CKD 4, chronic hypoxic respiratory failure on 2 L home of 2 due to COPD, hypertension, chronic iron-deficiency anemia sent from [facility] for lethargy and hemoglobin of 6.3. Patient is unable to provide history. In ED no gross bleeding but guaiac positive, hemoglobin 6.3. Patient denies any symptoms. Last admitted in December 2024 with similar findings, EGD and colonoscopy at that time revealed Schatzki's ring, esophagitis, gastritis, diverticulosis, internal hemorrhoids, AVM. Review of Systems Review of Systems: Yes all other systems are reviewed and are negative [facility] Medical History Congestive heart failure Coronary artery disease Acute congestive heart failure Atrial fibrillation with rapid ventricular response PAD (peripheral artery disease) Cholelithiasis CHF (congestive heart failure) Falls Afib Macular degeneration Overweight (BMI 25.0-29.9) COVID-19 vaccine administered History of COVID-19 Restrictive lung disease Edema Current smoker Iron deficiency anemia Tobacco abuse Carotid bruit Obesity (BMI 30-39.9) Depression Insomnia Allergic rhinitis Elevated TSH GERD without esophagitis Impaired fasting glucose Anemia Knee osteoarthritis Vitamin D deficiency Chronic kidney disease (CKD), stage III (moderate) Pure hypercholesterolemia Benign essential hypertension Family History Father Medical history unknown Mother CVD (cardiovascular disease) Surgical History Hx of total knee arthroplasty Hx of colonoscopy Hx of cardiac cath Hx of bilateral cataract extraction History of hysterectomy Social History Household Members: Other Household Members Other:: Daughter and grandson Housing: Assisted Living Facility Are you a primary healthcare consultant to a significant other at home: No Do you presently have visiting nurse or other home services: No Unable to assess alcohol history related to: Unknown Alcohol intake: never Comment: aware of trip hazard Patient Tobacco Use Status: Former Tobacco user Tobacco use type: Cigarette Cigarette Packs Per Day: 1 Cigarettes Per Day: 20.0 Years Smoked: 70 Smoked in Last 30 Days: No e-Cigarette/Vaping Use: Never Used Second Hand Smoke Exposure: Yes Use of substances other than those prescribed or required for medical reasons: No Advance Directives: Yes Advance Directives on File: Yes Advance Directives Date on File: 01/21/25 Do you have a plan to hurt others: No Plan service: No Current occupational status: retired and disabled Cognitive needs: No (cane/walker) Hearing needs: No Vision needs: No Meds Allergies Allergy/AdvReac Type Severity Reaction Status Date / Time atorvastatin AdvReac Intermediate myalgias Verified 03/23/25 12:30 Home Medications ?Medication ?Instructions ?Recorded ?Confirmed ?Last Taken ?Type brimonidine 0.2 % eye drops 1 drp ophthalmic (eye) TID macular 04/17/23 01/15/25 Unknown History degeneration rosuvastatin 20 mg tablet 20 mg PO BEDTIME 08/27/24 01/15/25 1 Day Ago History ~12/27/24 acetaminophen 325 mg tablet 975 mg PO TID 01/15/25 01/15/25 Unknown History magnesium hydroxide 400 mg/5 mL 30 ml PO DAILY PRN Constipation 01/15/25 01/15/25 Unknown History oral suspension (Milk of Magnesia) sodium phosphates 19 gram-7 118 ml [place] DAILY PRN Constipation 01/15/25 01/15/25 Unknown History gram/118 mL enema (Fleet Enema) Physical Exam Vital Signs and Narrative: Vital Signs: Last Vital Signs Temp 97.8 F 03/23/25 12:33 Pulse 103 H 03/23/25 12:33 Resp 18 03/23/25 12:33 BP 97/53 L 03/23/25 12:33 Pulse Ox 97 03/23/25 12:33 O2 Del Method Room Air 03/23/25 12:33 BMI result Body Mass Index 25.4 Alert oriented to self only, no acute distress, lungs clear, heart sounds normal, abdomen soft nontender Results Labs 03/23/25 12:42 03/23/25 12:42 Labs: Laboratory Results - last 24 hr 03/23/25 03/23/25 03/23/25 12:41 12:42 12:50 MCV 78.1 L MCH 20.3 L MCHC 26.0 L RDW 19.9 H Plt Count 223 MPV 9.8 Immature Gran % (Auto) 0.4 Neut % (Auto) 71.2 Lymph % (Auto) 15.2 L [place] % (Auto) 10.0 Eos % (Auto) 2.7 Baso % (Auto) 0.5 Lymph # (Auto) 1.2 [place] # (Auto) 0.8 Eos # (Auto) 0.2 Baso # (Auto) 0.0 Abs Immat Gran (auto) 0.03 Absolute Neuts (auto) 5.6 Absolute Nucleated RBC 0.050 H Nucleated RBC % (auto) 0.6 H VBG pH VBG pCO2 VBG pO2 VBG HCO3 VBG O2 Saturation VBG Base Excess Anion Gap 13 Estim Creat Clear Calc 20.7 Estimated GFR 25 Random Glucose 130 H Lactic Acid 1.7 Calcium 8.6 Magnesium 1.8 Total Bilirubin 0.6 Direct Bilirubin 0.3 AST 23 ALT < 6 Alkaline Phosphatase 83 C-Reactive Protein 1.86 H B-Natriuretic Peptide 1486 H Total Protein 6.1 L Albumin 2.9 L Lipase 13 Procalcitonin 0.05 Stool Occult Blood Influenza Type A (PCR) NEGATIVE Influenza Type B (PCR) NEGATIVE RSV RNA Qual (PCR) NEGATIVE SARS-CoV-2 RNA (RT-PCR) NEGATIVE Blood Type A Positive Antibody Screen NEGATIVE Crossmatch See Detail 03/23/25 03/23/25 12:53 12:54 MCV MCH MCHC RDW Plt Count MPV Immature Gran % (Auto) Neut % (Auto) Lymph % (Auto) [place] % (Auto) Eos % (Auto) Baso % (Auto) Lymph # (Auto) [place] # (Auto) Eos # (Auto) Baso # (Auto) Abs Immat Gran (auto) Absolute Neuts (auto) Absolute Nucleated RBC Nucleated RBC % (auto) VBG pH 7.38 VBG pCO2 62 VBG pO2 71 VBG HCO3 37 H VBG O2 Saturation TNP VBG Base Excess 11.1 Anion Gap Estim Creat Clear Calc Estimated GFR Random Glucose Lactic Acid Calcium Magnesium Total Bilirubin Direct Bilirubin AST ALT Alkaline Phosphatase C-Reactive Protein B-Natriuretic Peptide Total Protein Albumin Lipase Procalcitonin Stool Occult Blood POSITIVE Influenza Type A (PCR) Influenza Type B (PCR) RSV RNA Qual (PCR) SARS-CoV-2 RNA (RT-PCR) Blood Type Antibody Screen Crossmatch Imaging Radiologist's Impressions: Impressions Chest X-Ray 03/23/25 11:40 IMPRESSION: Cardiomegaly, pulmonary vascular congestion, and small bilateral pleural effusions. This is difficult to exclude underlying atelectasis or pneumonia at the left lung base. Electronically signed by: Phan Arias MD 03/23/2025 12:58 PM EDT RP Assessment and Plan (1) Congestive heart failure: Status: Acute Plan 89F PMH alzheimer dementia, hfref, chronic afib on elqiuis, CKD 4, chronic hypoxic respiratory failure on 2 L home of 2 due to COPD, hypertension, chronic iron-deficiency anemia sent from [facility] for lethargy and hemoglobin of 6.3 Acute on chronic blood loss anemia Transfuse 2 units in ED, follow up repeat Hold Eliquis, GI eval, continue PPI Chronic systolic CHF Given IV Lasix with transfusion, monitor Chronic hypoxic respiratory failure due to COPD Stable CKD 4 Stable Alzheimer dementia Healthcare proxy invoked, stable DVT prophylaxis-mechanical due to GI bleed DNR/DNI Quality Stroke Does the patient have a stroke diagnosis?: No VTE Prior VTE?: No VTE Risk Level:: Medical - moderate - high VTE Device Contraindication: N/A - Device Ordered VTE Drug Contraindication: Treatment Not Tolerated
--- OUTSIDE RECORDS SUMMARY | 2025-03-23 14:38 | XMS_ITS | Encounter Summary ---
Author Organization [employer] [facility] Address [address] [place] [address] Care Team Providers Care Vertical Borer Name Role Phone Jessica Allen MD Primary Care Provider [phone] Encounter Details Date Type Department Care Team (Late st Contact Info) Description 03/18/2025 Lab Requisition [facility] Lab [address] [place] [address] Jessica Allen MD [address] [place] [address] Unspecified systolic (congestive) heart failure (CMS/HCC V24, CMS/HCC V28); Essential (primary) hypertension Social History Tobacco Use Types Packs/Day Years [...] Procedure Name Priority Date/Time Associated Diagnosis Comments BASIC METABOLIC PANEL Routine 03/18/2025 4:45 AM EDT Unspecified systolic (congestive) heart failure (CMS/HCC V24, CMS/HCC V28) Essential (primary) hypertension documented in this encounter Results * (ABNORMAL) Basic metabolic panel (03/18/2025 4:45 AM EDT) Sodium 135 133 - 145 mmol/L LAB CHEMISTRY METHOD 03/18/2025 8:[address] [facility] Potassium 4.1 3.5 - 5.5 mmol/L LAB CHEMISTRY METHOD 03/18/2025 8:[address] [facility] Chloride 101 96 - 110 mmol/L LAB CHEMISTRY METHOD 03/18/2025 8:28 AM [facility] CO2 29 21 - 32 mmol/L LAB CHEMISTRY METHOD 03/18/2025 8:28 AM [facility] Anion Gap 5 3 - 11 LAB CHEMISTRY METHOD 03/18/2025 8:28 AM [facility] Glucose 82 70 - 100 mg/dL LAB CHEMISTRY METHOD 03/18/2025 8:28 AM [facility] BUN 23 5 - 25 mg/dL LAB CHEMISTRY METHOD 03/18/2025 8:28 AM [facility] Creatinine 1.80(H) 0.50 - 1.10 mg/dL LAB CHEMISTRY METHOD 03/18/2025 8:28 AM [facility] eGFR 27(L) >=60 mL/min/1. 73m2 LAB CHEMISTRY METHOD 03/18/2025 8:28 AM [facility] Comment:Calculation based on the Chronic Kidney Disease Epidemiology Collaboration (CKD-EPI) equation refit without adjustment for race. BUN/Creatinine Ratio 12.8 LAB CHEMISTRY METHOD 03/18/2025 8:28 AM [facility] Calcium 9.2 8.5 - 10.5 mg/dL LAB CHEMISTRY METHOD 03/18/2025 8:28 AM [facility] Blood Venous blood specimen / Unknown Venipuncture / Unknown 03/18/2025 4:45 AM EDT 03/18/2025 7:37 AM EDT us Jessica Allen MD LAB BLOOD ORDERABLES Final Resul t [facility] [address] [place] [address], documented in this encounter Visit Diagnoses Diagnosis Unspecified systolic (congestive) heart failure (CMS/HCC V24, CMS/HCC V28) Essential (primary) hypertension Unspecified essential hypertension documented in this encounter Care Teams Vertical Borer Relationship Specialty Start Date End Date Jessica Allen MD [address] [place] [address] [address] [place] [address] PCP - General Geriatric Medicine 01/03/25 documented as of this encounter
--- OUTSIDE RECORDS SUMMARY | 2025-03-23 14:39 | XMS_ITS | Patient Health Record ---
Author Organization [facility] Address [address] [place] [address] Care Team Providers Care Greens Or Grounds Superintendent Name Role Phone Dl Dowd Jr Reason For Referral No Information Plan Of Treatment No Information
--- NOTE | 2025-03-23 15:00 | PC.NURSE ---
blood bag spiked and spike went through blood port through the side of the blood bag, leaking blood everywhere. Blood bag 1 d/c'd and blood bank notified.
[2025-03-23] MEDS: Furosemide 20 MG/2 ML VIAL IVPUSH (16:22)
[2025-03-23 17:54] LABS: Appearance Urine Turbid; Glucose Urine UA Negative (Negative); PH 6.0 (5.0-9.0); Specific Gravity - Urine 1.010 (1.005-1.025); UMIC TRIGGER UACC YES
--- NOTE | 2025-03-23 17:55 | PHA.MEDREC ---
Addendum entered by Jenaro Adan [facility] 03/23/25 18:10: med rec reviewed Original Note: Pharmacy Consult ? Medication Reconciliation Pharmacy has completed the medication reconciliation. Utilized list from Mellissa Boyer.
--- NOTE | 2025-03-23 18:02 | PC.NURSE ---
contacted hospitalist to re-order 1 unit of RBCs after speaking to blood bank about a 2nd unit. Blood bank sts 1 unit would have to be ordered since the first unit was wasted.
[2025-03-23 18:12] LABS: UACC Culture Trigger YES
--- NOTE | 2025-03-23 19:18 | PC.NURSE ---
Assumed care for pt at this time. pt awake and alert in stretcher eating dinner independently. blood transfusion noted to be complete. ended transfusion tar, flushed IV, and safe start completed with previous RN. introduced self to pt and updated plan of care. pending blood machine operator picker at this time.
[2025-03-24 03:25] VITALS: BP 120/73; PULSE 109; RESP 20; TEMP 36.2; O2SAT 93
[2025-03-24 07:00] LABS: Anion Gap 14 (12-20); Blood Urea Nitrogen 21 mg/dL (9-16); Calcium 9.4 mg/dL (8.4-10.2); Carbon Dioxide 32 mmol/L (22-29); Chloride 98 mmol/L (96-108); Creatinine Clr Calc Pharmacy 22.7; Estimated Glomerular Filt Rate 31; Magnesium 1.9 mg/dL (1.6-2.6); Potassium 4.2 mmol/L (3.3-5.1); Sodium 140 mmol/L (135-145)
[2025-03-24 07:05] LABS: Hematocrit 33.8 % (37.0-47.0); Hemoglobin 9.8 g/dl (12.0-16.0); Mean Corpuscular HGB Conc 29.0 g/dl (31.0-35.0); Mean Corpuscular Hemoglobin 23.3 pg (27.0-33.0); Mean Corpuscular Volume 80.3 fL (80.0-98.0); NRBC Abs Auto 0.040 X10*3/uL (0.0-0.012); NRBC Pct Auto 0.3 /100WBC (0.0-0.2); Platelet Count 232 X10*3/uL (160-400); Red Blood Count 4.21 X10*6/uL (4.20-5.50); White Blood Count 13.0 X10*3/uL (4.8-10.8)
[2025-03-24 07:18] VITALS: BP 125/90; PULSE 111; RESP 18; TEMP 36.7; O2SAT 95
[2025-03-24 09:15] VITALS: BP 125/90
[2025-03-24] MEDS: Brimonidine Tartrate 0.2% Oph 5 ML BOTTLE 1 DROP EYE-BOTH ×3 (09:15→20:18)
[2025-03-24 09:16] VITALS: BP 125/90; PULSE 111
[2025-03-24] MEDS: Metoprolol Succinate ER 25 MG TAB.ER.24H PO (09:16)
--- NOTE | 2025-03-24 09:18 | P.CNGI_ITS ---
History of Present Illness Data of Consult Service Date: 03/24/25 Requesting physician: Rocael Phillips Primary Care Provider: Jessica Allen MD [facility] Reason for consult: Recurrent anemia 89-year-old female with medical history of COPD, with chronic hypoxic respiratory failure on 2 L oxygen at baseline, atrial fibrillation on Eliquis, CKD, who was admitted to the hospital weakness, fatigue and hemoglobin of 6.3. Patient with known dementia and unable to provide clinical history. Based on notes, no overt bleeding has been noted so far. She does not report any abdominal pain, nausea, vomiting or change in appetite. She had a recent admission earlier this year for similar presentation underwent EGD/colonoscopy. Findings: Esophagitis, gastritis. Cecal AVMs. Three tubular adenomas removed. She has received 3 units of PRBC with adequate increase in hemoglobin from 6.3-9.8 this morning. Creatinine has improved to 1.5. Iron studies suggestive of ongoing iron-deficiency anemia. Hemolysis labs negative. Review of Systems 2 Review of Systems: Yes all other systems are reviewed and are negative PMFSH Past Medical History Medical History Congestive heart failure Coronary artery disease Acute congestive heart failure Atrial fibrillation with rapid ventricular response PAD (peripheral artery disease) Cholelithiasis CHF (congestive heart failure) Falls Afib Macular degeneration Overweight (BMI 25.0-29.9) COVID-19 vaccine administered History of COVID-19 Restrictive lung disease Edema Current smoker Iron deficiency anemia Tobacco abuse Carotid bruit Obesity (BMI 30-39.9) Depression Insomnia Allergic rhinitis Elevated TSH GERD without esophagitis Impaired fasting glucose Anemia Knee osteoarthritis Vitamin D deficiency Chronic kidney disease (CKD), stage III (moderate) Pure hypercholesterolemia Benign essential hypertension Family History Family History Father Medical history unknown Mother CVD (cardiovascular disease) Surgical History Surgical History Hx of total knee arthroplasty Hx of colonoscopy Hx of cardiac cath Hx of bilateral cataract extraction History of hysterectomy Social History Social History Household Members: None Household Members Other:: Daughter and grandson Housing: [place] Are you a primary child care worker to a significant other at home: No Do you presently have visiting nurse or other home services: No Unable to assess alcohol history related to: Unknown Alcohol intake: never Comment: aware of trip hazard Patient Tobacco Use Status: Former Tobacco user Tobacco use type: Cigarette Cigarette Packs Per Day: 1 Cigarettes Per Day: 20.0 Years Smoked: 70 Smoked in Last 30 Days: No e-Cigarette/Vaping Use: Never Used Second Hand Smoke Exposure: Yes Use of substances other than those prescribed or required for medical reasons: No Advance Directives: Yes Advance Directives on File: Yes Advance Directives Date on File: 01/21/25 Do you have a plan to hurt others: No Plan Recently lost weight without trying: Unsure Nutrition Risks: No Nutritional Risk Patient : No : No Poor oral hygiene: No service: No Current occupational status: retired and disabled Cognitive needs: No (cane/walker) Hearing needs: No Vision needs: No Meds Allergies Allergy/AdvReac Type Severity Reaction Status Date / Time atorvastatin AdvReac Intermediate myalgias Verified 03/23/25 12:30 Active Medications: Current Medications Brimonidine Tartrate (Brimonidine Tartrate 0.2% Oph 5 Ml Bottle) 1 drop EYE- BOTH TID [facility] Last Admin: 03/24/25 09:15 Dose: 1 drop Ceftriaxone Sodium (Ceftriaxone Sodium 1 Gm Vial) 1 gm IVPUSH Q24H [facility] Last Admin: 03/23/25 18:40 Dose: 1 gm Furosemide (Furosemide 40 Mg Tablet) 40 mg PO DAILY [facility]; Protocol Last Admin: 03/24/25 09:15 Dose: 40 mg Magnesium Oxide (Magnesium Oxide 400 Mg Tablet) 400 mg PO DAILY [facility] Last Admin: 03/24/25 09:15 Dose: 400 mg Metoprolol Succinate (Metoprolol Succinate Er 25 Mg Tab.Er.24h) 25 mg PO DAILY [facility]; Protocol Last Admin: 03/24/25 09:16 Dose: 25 mg Non-Formulary Medication (Rosuvastatin) 20 mg PO BEDTIME [facility] Omeprazole (Omeprazole 20 Mg Capsule.Dr) 20 mg PO BID@0630,1630 [facility] Last Admin: 03/24/25 06:18 Dose: 20 mg Sodium Biphosphate/Sodium Phosphate (Sodium Phosphate,[place]-Dibasic 133 Ml Enema) 118 ml [place] DAILY PRN PRN Reason: Constipation Home Medications ?Medication ?Instructions ?Recorded ?Confirmed ?Last Taken ?Type brimonidine 0.2 % eye drops 1 drp ophthalmic (eye) TID macular 04/17/23 03/23/25 Unknown History degeneration rosuvastatin 20 mg tablet 20 mg PO BEDTIME 08/27/24 1 Day Ago History ~12/27/24 acetaminophen 325 mg tablet 975 mg PO TID PRN Pain 03/23/25 Unknown History magnesium hydroxide 400 mg/5 mL 30 ml PO DAILY PRN Con stipation 01/15/25 03/23/25 Unknown History oral suspension (Milk of Magnesia) sodium phosphates 19 gram-7 118 ml [place] DAILY PRN Consti pation 01/15/25 03/23/25 Unknown History gram/118 mL enema (Fleet Enema) bisacodyl 10 mg rectal suppository 10 mg [place] DAILY PRN Constipation 03/23/25 03/23/25 Unknown History diclofenac sodium 1 % topical gel 4 g topical QID PRN Pain 03/23/25 03/23/25 Unknown History melatonin 3 mg tablet 3 mg PO BEDTIME 03/23/2501/10 Unknown History metoprolol succinate 25 mg 25 mg PO DAILY 03/23/2501/10 Unknown History tablet,extended release 24 hr pantoprazole 40 mg tablet,delayed 40 mg PO BID@0630,16 30 03/23/25 03/23/25 Unknown History release phenazopyridine 100 mg tablet 100 mg PO TID PRN Bladde r 03/23/25 03/23/25 Unknown History (Pyridium) pain/discomfort potassium chloride 10 mEq 20 meq PO DAILY 03/23/2501/10 Unknown History tablet,extended release Physical Exam 2 Exam: Exam: Elderly female, pale appearing No acute distress Nonicteric Nasal cannula in place with mild tachypnea noted Abdomen soft, nontender, nondistended Lower extremity edema Vital Signs: Vital Signs: Last Vital Signs Temp 98.1 F 03/24/25 07:18 Pulse 111 H 03/24/25 09:16 Resp 18 03/24/25 07:18 BP 125/90 H 03/24/25 09:16 Pulse Ox 95 03/24/25 07:18 O2 Del Method Nasal Cannula 03/24/25 07:18 O2 Flow Rate 2 03/24/25 07:18 BMI result Body Mass Index 23.9 Results Labs 03/24/25 05:58 03/24/25 05:58 Labs: Short CBC 03/23/25 03/24/25 Range/Units 12:42 05:58 WBC 7.8 13.0 H (4.8-10.8) X10*3/uL Hgb 6.3 L* D 9.8 L D (12.0-16.0) g/dl Hct 24.2 L 33.8 L D (37.0-47.0) % Plt Count 223 232 (160-400) X10*3/uL BMP 03/23/25 03/24/25 12:42 05:58 Sodium 137 140 Potassium 4.6 D 4.2 Chloride 101 98 Carbon Dioxide 28 32 H BUN 23 H 21 H Creatinine 1.87 H 1.57 H Calcium 8.6 9.4 D Liver Function 03/23/25 Range/Units 12:42 Total Bilirubin 0.6 (0.0-1.0) mg/dL Direct Bilirubin 0.3 (0.0-0.5) mg/dL AST 23 (5-31) U/L ALT < 6 (0-31) U/L Alkaline Phosphatase 83 (39-117) U/L Albumin 2.9 L (3.5-5.0) g/dL Urine 03/23/25 Range/Units 17:48 Urine Color Dark Yellow Urine Appearance Turbid Urine pH 6.0 (5.0-9.0) Ur Specific [place] 1.010 (1.005-1.025) Urine Protein 100 (2+) H (Neg-Trace) mg/dL Urine Glucose (UA) Negative (Negative) mg/dL Assessment and Plan (1) Iron deficiency anemia: Qualifiers: Iron deficiency anemia type: inadequate dietary iron intake Qualified Code(s): D50.8 - Other iron deficiency anemias Status: Acute (2) GI bleed: Qualifiers: GI bleed type/associated pathology: unspecified gastrointestinal hemorrhage type Qualified Code(s): K92.2 - Gastrointestinal hemorrhage, unspecified Status: Acute Plan Had a recent bidirectional endoscopy with multiple possible sources of ongoing occult GI bleeding including esophagitis, gastritis, AVMs. Likely has bleeding from 1 or more of these sources. Given her known cardiopulmonary comorbidities, high-risk for repeat EGD colonoscopy with limited therapeutic value. - Would recommend IV iron infusions and monitoring CBC on a regular basis. - Continue PPI therapy. - Can consider repeat endoscopic evaluation if becomes PRBC transfusion dependent despite iron repletion. - Ok to take monoplatelet therapy. Consider discussing alternatives to anticoagulation with cardiology such as watchman device, afib ablation etc. Called healthcare proxy Gianna to review the plan above, but could not reach her, left voice message to call our office. Thank you for allowing me to participate in her care. Please do not hesitate to reach out for any questions or concerns. Procedures Date of Service Date of Service: 03/24/25
[2025-03-24 09:54] LABS: Iron 18 mcg/dL (30-160); Percent Iron Saturation 6 % (15-50); Total Iron Binding Capacity 282 mcg/dL (228-428); Unsaturated Iron Binding 264 ug/dL
[2025-03-24 10:08] LABS: Ferritin 27 ng/mL (10-250)
[2025-03-24 12:32] LABS: Folate 4.4 ng/mL (> or = 4.0); Vitamin B12 1317 pg/mL (200-900)
--- NOTE | 2025-03-24 13:51 | P.PNIM_ITS ---
Subjective Subjective Date of Service: 03/24/25 Interval History: anemia Review of Systems s/p prbc denies abd pain or [place] bleeding Review of Systems: Yes all other systems are reviewed and are negative Physical Exam 2 Exam: Exam: Alert oriented to self only, no acute distress. chest:lungs clear cvs: [id number], [id number], abdomen soft nontender bs present ext:pulses present, no cyanosis Vital Signs: Vital Signs: Last Vital Signs Temp 98.1 F 03/24/25 07:18 Pulse 111 H 03/24/25 09:16 Resp 18 03/24/25 07:18 BP 125/90 H 03/24/25 09:16 Pulse Ox 95 03/24/25 07:18 O2 Del Method Nasal Cannula 03/24/25 07:18 O2 Flow Rate 2 03/24/25 07:18 BMI result Body Mass Index 23.9 Objective Data Active Medications Brimonidine Tartrate (Brimonidine Tartrate 0.2% Oph 5 Ml Bottle) 1 drop EYE- BOTH TID [facility] Last Admin: 03/24/25 09:15 Dose: 1 drop Documented By: DOLLY Ceftriaxone Sodium (Ceftriaxone Sodium 1 Gm Vial) 1 gm IVPUSH Q24H [facility] Last Admin: 03/23/25 18:40 Dose: 1 gm Documented By: VENICE Furosemide (Furosemide 40 Mg Tablet) 40 mg PO DAILY [facility]; Protocol Last Admin: 03/24/25 09:15 Dose: 40 mg Documented By: DOLLY Magnesium Oxide (Magnesium Oxide 400 Mg Tablet) 400 mg PO DAILY [facility] Last Admin: 03/24/25 09:15 Dose: 400 mg Documented By: DOLLY Metoprolol Succinate (Metoprolol Succinate Er 25 Mg Tab.Er.24h) 25 mg PO DAILY [facility]; Protocol Last Admin: 03/24/25 09:16 Dose: 25 mg Documented By: DOLLY Non-Formulary Medication (Rosuvastatin) 20 mg PO BEDTIME [facility] Omeprazole (Omeprazole 20 Mg Capsule.Dr) 20 mg PO BID@0630,1630 [facility] Last Admin: 03/24/25 06:18 Dose: 20 mg Documented By: LYSJulianne Sodium Biphosphate/Sodium Phosphate (Sodium Phosphate,[place]-Dibasic 133 Ml Enema) 118 ml [place] DAILY PRN PRN Reason: Constipation Labs 03/24/25 05:58 03/24/25 05:58 Labs: Laboratory Results - last 24 hr 03/23/25 03/23/25 03/23/25 12:42 12:50 17:48 MCV MCH MCHC RDW Plt Count MPV Absolute Nucleated RBC Nucleated RBC % (auto) Anion Gap Estim Creat Clear Calc Estimated GFR Random Glucose Haptoglobin Calcium Magnesium Iron 18 L TIBC 282 % Saturation 6 L Unsat Iron Binding 264 Ferritin 27 Lactate Dehydrogenase Vitamin B12 Folate Urine Color Dark Yellow Urine Appearance Turbid Urine pH 6.0 Ur Specific [place] 1.010 Urine Protein 100 (2+) H Urine Glucose (UA) Negative Urine Ketones Negative Urine Blood Moderate (2+) H Urine Nitrite Negative Ur Leukocyte Esterase Large (3+) H Urine RBC 3-5 H Urine WBC >50 H Ur Squamous Epith Cells 0-2 Urine Bacteria 4+ Hyaline Casts 0-2 Blood Type A Positive Antibody Screen NEGATIVE Crossmatch See Detail 03/24/25 03/24/25 05:58 11:28 MCV 80.3 MCH 23.3 L MCHC 29.0 L RDW 20.8 H Plt Count 232 MPV 9.5 Absolute Nucleated RBC 0.040 H Nucleated RBC % (auto) 0.3 H Anion Gap 14 Estim Creat Clear Calc 22.7 Estimated GFR 31 Random Glucose 109 Haptoglobin 133 Calcium 9.4 D Magnesium 1.9 Iron TIBC % Saturation Unsat Iron Binding Ferritin Lactate Dehydrogenase 183 Vitamin B12 1317 H Folate 4.4 Urine Color Urine Appearance Urine pH Ur Specific [place] Urine Protein Urine Glucose (UA) Urine Ketones Urine Blood Urine Nitrite Ur Leukocyte Esterase Urine RBC Urine WBC Ur Squamous Epith Cells Urine Bacteria Hyaline Casts Blood Type Antibody Screen Crossmatch Microbiology Microbiology Results: Microbiology 03/23/25 18:17 Urine Culture - Preliminary Urine clean catch - Clean Catch Midstream Culture too young to evaluate. Assessment and Plan (1) ABLA (acute blood loss anemia): Status: Acute Plan 89F PMH alzheimer dementia, hfref, chronic afib on elqiuis, CKD 4, chronic hypoxic respiratory failure on 2 L home of 2 due to COPD, hypertension, chronic iron-deficiency anemia sent from [facility] for lethargy and hemoglobin of 6.3 Acute on chronic blood loss anemia Transfuse 2 units in ED, follow up repeat h/h 9.8/33.8 Hold Eliquis, GI eval, continue PPI Chronic systolic CHF Given IV Lasix with transfusion, monitor Chronic hypoxic respiratory failure due to COPD Stable CKD 4 Stable Alzheimer dementia Healthcare proxy invoked, stable DVT prophylaxis-mechanical due to GI bleed DNR/DNI Quality Stroke Does the patient have a stroke diagnosis?: No VTE Prior VTE?: No VTE Risk Level:: Medical - moderate - high VTE Device Contraindication: N/A - Device Ordered VTE Drug Contraindication: Treatment Not Tolerated
--- NOTE | 2025-03-24 14:28 | MHC.CM.PN ---
CM ASSESSMENT COMPLETED W/ HCP EMILI. IMM DELIVERED. PATIENT COMES FROM [facility] AT [facility]. CONFIRMED BED HOLD. EMILI REPORTS PATIENT USES W/C AT [facility]. HCP ON FILE AND VERIFIED. DP: RETURN TO [facility]TC @ [facility] VIA BLS. CM WILL CONTINUE TO FOLLOW.
[2025-03-24 15:28] VITALS: BP 104/56; PULSE 104; RESP 16; TEMP 36.6; O2SAT 95
[2025-03-24 19:04] VITALS: BP 140/61; PULSE 95; RESP 16; TEMP 36.6; O2SAT 92
[2025-03-25 03:31] VITALS: BP 130/62; PULSE 98; RESP 17; TEMP 36.8; O2SAT 94
[2025-03-25 08:00] VITALS: BP 114/53; PULSE 104; RESP 18; TEMP 36.8; O2SAT 95
[2025-03-25 08:19] LABS: Hematocrit 34.2 % (37.0-47.0); Hemoglobin 10.0 g/dl (12.0-16.0)
[2025-03-25] MEDS: Metoprolol Succinate ER 25 MG TAB.ER.24H PO (08:57)
[2025-03-25] MEDS: Brimonidine Tartrate 0.2% Oph 5 ML BOTTLE 1 DROP EYE-BOTH ×3 (08:59→21:26)
[2025-03-25 15:52] VITALS: BP 119/58; PULSE 105; RESP 16; TEMP 37.2; O2SAT 93
--- NOTE | 2025-03-25 17:49 | HO.PM.IMPN ---
Subjective Subjective Date of Service: 03/25/25 Interval History: anemia ,ckd Review of Systems seems improving no more bleeding Review of Systems: Yes all other systems are reviewed and are negative Physical Exam Exam: Exam: Alert oriented to self only, no acute distress. chest:lungs clear cvs: rrr, [id number], abdomen soft nontender bs present ext:pulses present, no cyanosis Vital Signs: Vital Signs: Last Vital Signs Temp 99.0 F 03/25/25 15:52 Pulse 105 H 03/25/25 15:52 Resp 16 03/25/25 15:52 BP 119/58 L 03/25/25 15:52 Pulse Ox 93 03/25/25 15:52 O2 Del Method Nasal Cannula 03/25/25 15:52 O2 Flow Rate 2 03/25/25 15:52 BMI result Body Mass Index 23.9 Objective Data Active Medications Brimonidine Tartrate (Brimonidine Tartrate 0.2% Oph 5 Ml Bottle) 1 drop EYE-BOTH TID [facility] Last Admin: 03/25/25 16:02 Dose: 1 drop Documented By: CINTHIA Ceftriaxone Sodium (Ceftriaxone Sodium 1 Gm Vial) 1 gm IVPUSH Q24H [facility] Last Admin: 03/24/25 18:40 Dose: 1 gm Documented By: DOLLY Furosemide (Furosemide 40 Mg Tablet) 40 mg PO DAILY [facility]; Protocol On Hold: 03/25/25 10:02 Last Admin: 03/25/25 08:58 Dose: 40 mg Documented By: CINTHIA Magnesium Oxide (Magnesium Oxide 400 Mg Tablet) 400 mg PO DAILY [facility] Last Admin: 03/25/25 08:58 Dose: 400 mg Documented By: CINTHIA Metoprolol Succinate (Metoprolol Succinate Er 25 Mg Tab.Er.24h) 25 mg PO DAILY [facility]; Protocol Last Admin: 03/25/25 08:57 Dose: 25 mg Documented By: CINTHIA Non-Formulary Medication (Rosuvastatin) 20 mg PO BEDTIME [facility] Omeprazole (Omeprazole 20 Mg Capsule.Dr) 20 mg PO BID@0630,1630 [facility] Last Admin: 03/25/25 16:01 Dose: 20 mg Documented By: CINTHIA Sodium Biphosphate/Sodium Phosphate (Sodium Phosphate,[place]-Dibasic 133 Ml Enema) 118 ml [place] DAILY PRN PRN Reason: Constipation Labs 03/25/25 08:11 03/24/25 05:58 Microbiology Microbiology Results: Microbiology 03/23/25 13:33 Blood Culture - Preliminary Blood - Venous No growth after 48 hours. 03/23/25 12:44 Blood Culture - Preliminary Blood - Venous No growth after 48 hours. 03/23/25 18:17 Urine Culture - Final Urine clean catch - Clean Catch Midstream Assessment and Plan (1) ABLA (acute blood loss anemia): Status: Acute Plan 89F PMH alzheimer dementia, hfref, chronic afib on elqiuis, CKD 4, chronic hypoxic respiratory failure on 2 L home of 2 due to COPD, hypertension, chronic iron-deficiency anemia sent from [facility] for lethargy and hemoglobin of 6.3 Acute on chronic blood loss anemia Transfuse 2 units in ED, follow up repeat h/h 9.8/33.8 Hold Eliquis, GI eval noted :, continue PPI, moniter h/h , hold eliquis ( due to signifiacant anemia requiring transfusions- cardiology also rec to hold eliquis),added iv iron per gi Chronic systolic CHF Given IV Lasix with transfusion, monitor Chronic hypoxic respiratory failure due to COPD Stable CKD 4 Stable Alzheimer dementia Healthcare proxy invoked, stable DVT prophylaxis-mechanical due to GI bleed DNR/DNI ongoing need: Possible acute blood loss anemia-monitor H&H , IV PPI and IV iron need. Quality Stroke Does the patient have a stroke diagnosis?: No VTE Prior VTE?: No VTE Risk Level:: Medical - moderate - high VTE Device Contraindication: N/A - Device Ordered VTE Drug Contraindication: Treatment Not Tolerated
[2025-03-25 19:43] VITALS: BP 141/67; PULSE 100; RESP 16; TEMP 36.7; O2SAT 94
[2025-03-26 03:22] VITALS: BP 147/68; PULSE 100; RESP 17; TEMP 36.4; O2SAT 94
[2025-03-26 07:06] LABS: Hematocrit 37.8 % (37.0-47.0); Hemoglobin 10.4 g/dl (12.0-16.0)
[2025-03-26 07:27] VITALS: BP 137/63; PULSE 123; RESP 18; TEMP 37.2; O2SAT 97
[2025-03-26] MEDS: Brimonidine Tartrate 0.2% Oph 5 ML BOTTLE 1 DROP EYE-BOTH (08:02)
[2025-03-26] MEDS: Metoprolol Succinate ER 25 MG TAB.ER.24H PO (08:03)
--- NOTE | 2025-03-26 10:54 | MHC.CM.PN ---
Per MD, patient medically cleared for dc back to [facility] @ [facility]. BLS scheduled for 2pm. HCP/daughter, RN, MD, and SNF aware. Last IMM 03/24.
--- NOTE | 2025-03-26 13:54 | PM.DS ---
DS: Providers Provider Date of Service: 03/26/25 Date of admission: 03/23/25 13:56 Date of discharge: 03/26/25 Primary care physician: Jessica Allen MD Consults: 03/23/25 14:09 Consult to Gastroenterology Routine Consulting Provider: [facility] Reason for consultation: reccurent anemia, positive guaic on eliquis Attending physician on discharge: Janet Florence Discharging clinician: Janet Florence DS: Diagnosis Discharge Diagnosis (1) ABLA (acute blood loss anemia): Status: Acute DS: Summary Hospital Course Hospital Course: HPI:89F PMH alzheimer dementia, hfref, chronic afib on elqiuis, CKD 4, chronic hypoxic respiratory failure on 2 L home of 2 due to COPD, hypertension, chronic iron-deficiency anemia sent from [facility] for lethargy and hemoglobin of 6.3. Patient is unable to provide history. In ED no gross bleeding but guaiac positive, hemoglobin 6.3. Patient denies any symptoms. Last admitted in December 2024 with similar findings, EGD and colonoscopy at that time revealed Schatzki's ring, esophagitis, gastritis, diverticulosis, internal hemorrhoids, AVM. Hospital course: 89F PMH alzheimer dementia, hfref, chronic afib on elqiuis, CKD 4, chronic hypoxic respiratory failure on 2 L home of 2 due to COPD, hypertension, chronic iron-deficiency anemia sent from [facility] for lethargy and hemoglobin of 6.3. Acute on chronic blood loss anemia: s/p 2 prbc and iv ironx2. Seen by GI:recent bidirectional endoscopy with multiple possible sources of ongoing occult GI bleeding including esophagitis, gastritis, AVMs. Likely has bleeding from 1 or more of these sources. Given her known cardiopulmonary comorbidities, high-risk for repeat EGD colonoscopy with limited therapeutic value. Patient received 2 PRBC and IV iron infusion H&H is stable around 10 range, discussed with GI and cardiology recommended to add aspirin and stop Eliquis. Monitor CBC outpatient and follow-up with GI and Cardiology outpatient. Continue PPIs. Avoid NSAID and other blood thinners. uti: complete ceftin 250 mg bix x4 days. Cardiology will arrange their own appointment(discussed with Dr. Caruso). CKD: creatinine improving, resume lasix after repeating bmp. plan: uti: complete ceftin 250 mg bix x4 days. Seen by GI:recent bidirectional endoscopy with multiple possible sources of ongoing occult GI bleeding including esophagitis, gastritis, AVMs. Likely has bleeding from 1 or more of these sources. Given her known cardiopulmonary comorbidities, high-risk for repeat EGD colonoscopy with limited therapeutic value. Patient received 2 PRBC and IV iron infusion H&H is stable around 10 range, discussed with GI and cardiology recommended to add aspirin and stop Eliquis. Monitor CBC outpatient and follow-up with GI and Cardiology outpatient. Continue PPIs. Avoid NSAID and other blood thinners. Cardiology will arrange their own appointment(discussed with Dr. Caruso). CKD: resume lasix after repeating bmp. moniter cbc in 1 week. Assessment and plan coordination time spent 45 minute. Her daughter Ms. Katz was updated in detail length-she understand and in agreement with the above plan. All questions answered. Time Attestation Total time managing care of this patient today: 45 mintues. Discharge Coordination Time (in mins): 45 min Quality: Safe Use of Opioids Does Pt have an Active Cancer Diagnosis on the Problem List?: No Quality: Stroke Does the patient have a stroke diagnosis?: No Physical Exam Exam: Exam: Alert oriented to self only, no acute distress. chest:lungs clear cvs: rrr, [id number], abdomen soft nontender bs present ext:pulses present, no cyanosis Vital Signs: Vital Signs: Last Vital Signs Temp 99.0 F 03/26/25 07:27 Pulse 123 H 03/26/25 07:27 Resp 18 03/26/25 07:27 BP 137/63 03/26/25 07:27 Pulse Ox 97 03/26/25 07:27 O2 Del Method Nasal Cannula 03/26/25 07:27 O2 Flow Rate 2 03/26/25 07:27 BMI result Body Mass Index 23.9 DS: Data Data Completed and Pending Completed studies during hospitalization [Text1]: Procedures Assistance with Respiratory Ventilation, Less than 24 Consecutive Hours, Continuous Positive Airway Pressure (08/27/24) Destruction of Cecum, Via Natural or Artificial Opening Endoscopic (01/15/25) Excision of Ascending Colon, Via Natural or Artificial Opening Endoscopic, Diagnostic (01/15/25) Excision of Rectum, Via Natural or Artificial Opening Endoscopic, Diagnostic (01/15/25) Excision of Sigmoid Colon, Via Natural or Artificial Opening Endoscopic, Diagnostic (01/15/25) Extirpation of Matter from Left Lower Leg Subcutaneous Tissue and Fascia, Open Approach (03/27/22) Inspection of Upper Intestinal Tract, Via Natural or Artificial Opening Endoscopic (01/15/25) Introduction of Remdesivir Anti-infective into Peripheral Vein, Percutaneous Approach, [employer] (08/19/23) Introduction of Vasopressor into Peripheral Vein, Percutaneous Approach (12/27/24) Repair Left Upper Leg Tendon, Open Approach (03/27/22) Replacement of Left Knee Joint with Synthetic Substitute, Uncemented, Open Approach (02/06/22) Reposition Left Patella with Internal Fixation Device, Open Approach (03/27/22) Transfusion of Nonautologous Red Blood Cells into Peripheral Vein, Percutaneous Approach (01/15/25) Labs on day of discharge: Laboratory Results - last 24 hr 03/26/25 05:46 Hgb 10.4 L Hct 37.8 Preliminary micro results at discharge 03/23/25 13:33 Blood Culture - Preliminary Blood - Venous No growth after 48 hours. 03/23/25 12:44 Blood Culture - Preliminary Blood - Venous No growth after 48 hours. Imaging Chest x-ray: Radiologist's impression: ITS Impressions Chest X-Ray 03/23/25 11:40 IMPRESSION: Cardiomegaly, pulmonary vascular congestion, and small bilateral pleural effusions. This is difficult to exclude underlying atelectasis or pneumonia at the left lung base. Discharge Plan Discharge Anticipated Discharge Date/Time: 03/26/25 13:19 Patient Disposition: Xfer SNF Discharge Diagnosis: anemia ,ckd Referrals: [facility] [Outside] - 1 Week Jessica Allen MD [Primary Care Provider, Internal Medicine] - 1 Week Radha Alonzo MD [Physician, Gastroenterology] - 1 Week Discharge Medications: New aspirin 81 mg capsule 81 mg PO DAILY Qty: 1 0RF cefuroxime axetil 250 mg tablet 250 mg PO Q12H Qty: 8 0RF Continued (DME) Raised Toliet Seat with handels See Rx Instructions .ROUTE .MEDSUPPLY Qty: 1 0RF Rx Instructions: As directed Osteoarthritis (DME) blood pressure monitor [Blood Pressure Kit] Kit See Rx Instructions .Route Qty: 1 0RF Rx Instructions: As directed (DME) ROLLATOR See Rx Instructions .Route .MEDSUPPLY Qty: 1 0RF Rx Instructions: As directed (DME) Orthpedic Shoes See Rx Instructions .Route .MEDSUPPLY Qty: 1 0RF Rx Instructions: As directed (DME) Depend Underwear For Women XL Misc See Rx Instructions .Route Qty: 68 0RF Rx Instructions: To be changed 6 to 8 times a day due to overactive bladder. (DME) adult pull ups/ Extra large XL See Rx Instructions .Route .MEDSUPPLY Qty: 1 3RF Rx Instructions: As directed (DME) wipes See Rx Instructions .Route .MEDSUPPLY Qty: 5 3RF Rx Instructions: As directed (DME) Portable ramp See Rx Instructions .Route .MEDSUPPLY Qty: 1 0RF Rx Instructions: As directed (DME) wheel chair See Rx Instructions .Route .MEDSUPPLY Qty: 1 0RF Rx Instructions: As directed Gemtesa 75 mg tablet 75 mg PO DAILY Qty: 90 0RF magnesium oxide 400 mg (241.3 mg magnesium) Tablet 400 mg PO DAILY Qty: 90 0RF rosuvastatin 20 mg tablet 20 mg PO BEDTIME acetaminophen 325 mg Tablet 975 mg PO TID PRN (Reason: Pain) magnesium hydroxide [Milk of Magnesia] 400 mg/5 mL Suspension 30 ml PO DAILY PRN (Reason: Constipation) Rx Instructions: For no BM in 3 days Fleet Enema 19-7 gram/118 mL Enema 118 ml MS DAILY PRN (Reason: Constipation) Rx Instructions: If Dulcolax supp. not effective pantoprazole 40 mg tablet,delayed release (DR/EC) 40 mg PO BID@0630,1630 metoprolol succinate 25 mg tablet extended release 24 hr 25 mg PO DAILY Protocol: Hold for SBP/HR < HOLD for SBP < : 90 HOLD for HR < : 60 melatonin 3 mg Tablet 3 mg PO BEDTIME phenazopyridine [Pyridium] 100 mg Tablet 100 mg PO TID PRN (Reason: Bladder pain/discomfort) bisacodyl 10 mg Suppository 10 mg MS DAILY PRN (Reason: Constipation) Rx Instructions: If MoM ineffective. potassium chloride 10 mEq Tablet Extended Release 20 meq PO DAILY (DME) RECLINER LIFT CHAIR RECLINER LIFT CHAIR See Rx Instructions .Route .MEDSUPPLY Qty: 1 0RF Rx Instructions: use as directed; brimonidine 0.2 % drops 1 drp ophthalmic (eye) TID Rx Instructions: both eyes Held furosemide 40 mg tablet 40 mg PO DAILY Qty: 30 2RF Hold Instructions: Resume on 03/30/25. Protocol: Hold for SBP< HOLD for SBP < : 90 diclofenac sodium 1 % gel 4 g topical QID PRN (Reason: Pain) Hold Instructions: Resume on 05/28/25. Discontinued apixaban 2.5 mg tablet 2.5 mg PO BID Qty: 60 5RF Discharge Orders: Discharge Order (Routine); Ordered 03/26/25 Ordered By: Janet Florence Diet: Advance to usual diet Activity on Discharge: As tolerated Stand Alone Forms: Patient Portal Discharge page Print Language: Monegasque Care Plan Goals: As above. Health Concerns: As above. Plan of Treatment: uti: complete ceftin 250 mg bix x4 days. Seen by GI:recent bidirectional endoscopy with multiple possible sources of ongoing occult GI bleeding including esophagitis, gastritis, AVMs. Likely has bleeding from 1 or more of these sources. Given her known cardiopulmonary comorbidities, high-risk for repeat EGD colonoscopy with limited therapeutic value. Patient received 2 PRBC and IV iron infusion H&H is stable around 10 range, discussed with GI and cardiology recommended to add aspirin and stop Eliquis. Monitor CBC outpatient and follow-up with GI and Cardiology outpatient. Continue PPIs. Avoid NSAID and other blood thinners. Cardiology will arrange their own appointment(discussed with Dr. Caruso). CKD: resume lasix after repeating bmp. moniter cbc in 1 week. Assessment: As above.
== END 2025-03-26 14:17 | disposition skilled nursing facility (03) | DRG 378 ==
LOC: HO.ED 13:56 → HO.EDOVER 14:28 → HO.S3 19:15
PROVIDERS: Internal Medicine; Admitting Provider Internal Medicine; Emergency Provider Emergency Medicine; PCP Family Medicine Geriatric Medicine; Visit Provider Internal Medicine
DX: K29.71 Gastritis, unspecified, with bleeding (principal); D62 Acute posthemorrhagic anemia; I13.0 Hypertensive heart and chronic kidney disease with heart failure and stage 1 through stage 4 chronic kidney disease, or unspecified chronic kidney disease; I50.22 Chronic systolic (congestive) heart failure; N18.4 Chronic kidney disease, stage 4 (severe); J96.11 Chronic respiratory failure with hypoxia; N39.0 Urinary tract infection, site not specified; K55.21 Angiodysplasia of colon with hemorrhage; Z66 Do not resuscitate; J44.9 Chronic obstructive pulmonary disease, unspecified; G30.9 Alzheimer's disease, unspecified; F02.80 Dementia in other diseases classified elsewhere, unspecified severity, without behavioral disturbance, psychotic disturbance, mood disturbance, and anxiety; Z99.81 Dependence on supplemental oxygen; Z20.822 Contact with and (suspected) exposure to COVID-19; Z79.01 Long term (current) use of anticoagulants; Z79.899 Other long term (current) drug therapy
CPT/HCPCS: 36415; 71045; 80048; 80076; 81001; 82272; 82607; 82728; 82746; 82803; 83010; 83540; 83605; 83615; 83690; 83735; 83880; 84145; 84484; 85014; 85018; 85025; 85027; 86140; 86850; 86900; 86901; 86923; 87040; 87086; 87637; 93005; 99285; J0696; J1756; J1938; J2470; P9016

== ENCOUNTER → 2025-03-23 12:35 | Outpatient (BNV) | payer MEDICARE, MEDICAID, SELFPAY | PROVIDERS: Emergency Provider Emergency Medicine; Visit Provider Radiology Diagnostic Radiology | DX: J90 Pleural effusion, not elsewhere classified (principal); I51.7 Cardiomegaly | CPT/HCPCS: 71045 ==

== ENCOUNTER → 2025-03-23 12:35 | Outpatient (BNV) | payer MEDICARE, MEDICAID, SELFPAY | PROVIDERS: Admitting Provider Internal Medicine; Emergency Provider Emergency Medicine; PCP Family Medicine Geriatric Medicine; Visit Provider Internal Medicine | DX: I48.91 Unspecified atrial fibrillation (principal) | CPT/HCPCS: 93010 ==

== ENCOUNTER → 2025-03-23 13:45 | Outpatient (BNV) | payer MEDICARE, MEDICAID, SELFPAY | PROVIDERS: Emergency Provider Emergency Medicine; PCP Family Medicine Geriatric Medicine; Visit Provider Internal Medicine | DX: D62 Acute posthemorrhagic anemia (principal) | CPT/HCPCS: 99231; 99232 ==

== ENCOUNTER → 2025-03-23 13:56 | Outpatient (BNV) | payer MEDICARE, MEDICAID, SELFPAY | PROVIDERS: Admitting Provider Internal Medicine; Emergency Provider Emergency Medicine; PCP Family Medicine Geriatric Medicine; Visit Provider Internal Medicine | DX: D50.0 Iron deficiency anemia secondary to blood loss (chronic) (principal); K92.2 Gastrointestinal hemorrhage, unspecified | CPT/HCPCS: 99232 ==

== ENCOUNTER 2025-04-20 11:47 | Inpatient (IN) | payer MEDICARE, MEDICAID, SELFPAY ==
[2025-04-20] VITALS (15 sets, daily range): BP systolic 90–127; BP diastolic 47–70; PULSE 89–126; RESP 17–31; TEMP 36.7–37.1; O2SAT 84–100; BMI 29.4
--- NOTE | ~2025-04-20 | CT_ITS ---
CLINICAL HISTORY: AMS with AF with RVR CT head without contrast Comparison: CT/SR - CT HEAD/BRAIN WO IV CON - 12/27/2024 01:32 PM EDT Findings: No acute hemorrhage. No extra-axial fluid collection. No hydrocephalus, mass-effect or herniation. Vega-white differentiation is maintained. There is patchy hypoattenuation of the periventricular and deep white matter, which is most likely the sequela of moderate chronic small vessel ischemic disease and is similar to the prior study. No acute orbital pathology. No acute soft tissue abnormality. No fracture. The visualized paranasal sinuses are predominantly clear. Fluid in right middle ear cavity and mastoid air cells, similar to the prior study, may indicate effusion or otomastoiditis. Partial opacification of the left middle ear cavity incomplete opacification of the left mastoid air cells, new/greater than on the prior study, may indicate an effusion or otomastoiditis. Impression: No acute intracranial findings. This document has been electronically signed by: Meredith Tapia MD on 04/20/2025 17:25:15
--- NOTE | ~2025-04-20 | XR_ITS ---
EXAMINATION: XR CHEST CLINICAL INFORMATION: dysnea, yvonne pleural eff on echo COMPARISON: March 23, 2025 TECHNIQUE: Frontal view of the chest was obtained. FINDINGS: Moderate left pleural effusion and compressive atelectasis and trace right pleural effusion remain evident. There are increasing groundglass densities in the lung bases. There is increasing linear density in the left perihilar lung. Pulmonary vessels are mildly prominent. Chronic size is enlarged. There is severe atherosclerotic desiccation in the aortic knob. There is a chronic ossification medial to the left humeral metadiaphysis. XR/XR chest 1V IMPRESSION: Suspected pulmonary edema and cardiomegaly with left greater than right pleural effusions, increased from the prior. Left basilar pneumonia it is not ruled out. Electronically signed by: Kapil Paula MD 04/20/2025 01:31 PM EDT
--- NOTE | ~2025-04-20 | CT_ITS ---
CLINICAL HISTORY: AHRF 2 2 ?INF ETIOLOGY, ckd3 , hence no contrast CT chest without contrast Comparison: CR/SR - XR CHEST 1 VIEW - 04/20/25 13:11 EDT CR/SR - XR CHEST 1 VIEW - 03/23/25 12:[address]/TN/SR - CT CHEST WO IV CON - 08/30/24 15:03 EST Findings: Mediastinal and hilar lymph nodes measure up to 1.1 cm in short axis. The heart size is within normal limits, however the atria are relatively enlarged. Severe calcified coronary artery disease. Normal size thoracic aorta with a severe amount of calcified atherosclerotic disease. Mild amount of bilateral ground-glass opacity with smooth interlobular septal thickening. Compressive atelectasis. Calcified granuloma. Pulmonary nodules measure up to 2 mm. The previously seen left upper lobe 7 mm nodule is likely obscured compressive atelectasis. No pneumothorax. Moderate-sized bilateral pleural effusions. No acute osseous or soft tissue abnormality. Small ascites in the upper abdomen. Impression: [id number] pulmonary edema. This document has been electronically signed by: Meredith Tapia MD on 04/20/2025 18:13:10
--- NOTE | 2025-04-20 12:06 | ECG_ITS ---
Test Reason : SOB Blood Pressure : */* mmHG Vent. Rate : 112 BPM Atrial Rate : * BPM P-R Int : * ms QRS Dur : 72 ms QT Int : 312 ms P-R-T Axes : * 89 85 degrees QTcB Int : 425 ms Atrial fibrillation with rapid ventricular response Anterior infarct , age undetermined Abnormal ECG When compared with ECG of 23-Mar-2025 12:55, Anterior infarct is now Present Nonspecific T wave abnormality no longer evident in Inferior leads Referred By: Jesus Gallardo Electronically Signed By: Walter Jason
--- NOTE | 2025-04-20 12:08 | ED.SOB ---
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 Lowest sat mid 80s on 4 L she was put on non-rebreather sent to hospital. AFib with RVR in the 110s for transport. The patient is awake drowsy minimally contributory to history possibly due to medical condition Related Data Home Medications ?Medication ?Instructions ?Recorded ?Confirmed brimonidine 0.2 % eye drops 1 drp ophthalmic (eye) TID macular 04/17/23 04/20/25 degeneration rosuvastatin 20 mg tablet 20 mg PO BEDTIME 08/27/24 04/20/25 acetaminophen 325 mg tablet 975 mg PO TID PRN Pain 01/15/25 04/20/25 magnesium hydroxide 400 mg/5 mL 30 ml PO DAILY PRN Constipation 01/15/25 04/20/25 oral suspension (Milk of Magnesia) sodium phosphates 19 gram-7 118 ml OK DAILY PRN Constipation 01/15/25 04/20/25 gram/118 mL enema (Fleet Enema) bisacodyl 10 mg rectal suppository 10 mg OK DAILY PRN Constipation 03/23/25 04/20/25 diclofenac sodium 1 % topical gel 4 g topical QID PRN Pain 03/23/25 04/20/25 Held on 03/26/25. Instructions: Resume on 05/28/25. melatonin 3 mg tablet 3 mg PO BEDTIME 03/23/25 04/20/25 metoprolol succinate 25 mg 25 mg PO DAILY 03/23/25 04/20/25 tablet,extended release 24 hr pantoprazole 40 mg tablet,delayed 40 mg PO DAILY@0630 03/23/25 04/20/25 release phenazopyridine 100 mg tablet 100 mg PO TID PRN Bladder 03/23/25 04/20/25 (Pyridium) pain/discomfort potassium chloride 10 mEq 20 meq PO DAILY 03/23/25 04/20/25 tablet,extended release ascorbic acid (vitamin C) 500 mg 500 mg PO DAILY 04/20/25 04/20/25 tablet (Vitamin C) gabapentin 100 mg capsule 100 mg PO BID 04/20/25 04/20/25 Previous Rx's ?Medication ?Instructions ?Recorded RECLINER LIFT CHAIR #1 ea 07/26/20 Raised Toliet Seat with handels #1 ea 02/08/22 ROLLATOR #1 ea 10/23/22 blood pressure monitor (Blood #1 ea 10/23/22 Pressure Kit) Orthpedic Shoes #1 ea 04/12/23 diaper,brief,adult,disposable #68 ea 04/02/24 (Depend Underwear For Women XL) adult pull ups/ Extra large #1 ea 04/24/24 wipes #5 ea 06/18/24 Portable ramp #1 ea 10/21/24 wheel chair #1 ea 10/21/24 furosemide 40 mg tablet 40 mg PO DAILY #30 tabs 12/22/24 Held on 03/26/25. Instructions: Resume on 03/30/25. magnesium oxide 400 mg (241.3 mg 400 mg PO DAILY #90 tabs 01/02/25 magnesium) tablet vibegron 75 mg tablet (Gemtesa) 75 mg PO DAILY #90 tabs 01/06/25 aspirin 81 mg capsule 81 mg PO DAILY #1 cap 03/26/25 Allergies Allergy/AdvReac Type Severity Reaction Status Date / Time atorvastatin AdvReac Intermediate myalgias Verified 04/20/25 12:02 [facility] Past Medical History Medical History Congestive heart failure Coronary artery disease Acute congestive heart failure Atrial fibrillation with rapid ventricular response PAD (peripheral artery disease) Cholelithiasis CHF (congestive heart failure) Falls Afib Macular degeneration Overweight (BMI 25.0-29.9) COVID-19 vaccine administered History of COVID-19 Restrictive lung disease Edema Current smoker Iron deficiency anemia Tobacco abuse Carotid bruit Obesity (BMI 30-39.9) Depression Insomnia Allergic rhinitis Elevated TSH GERD without esophagitis Impaired fasting glucose Anemia Knee osteoarthritis Vitamin D deficiency Chronic kidney disease (CKD), stage III (moderate) Pure hypercholesterolemia Benign essential hypertension Surgical History Hx of total knee arthroplasty Hx of colonoscopy Hx of cardiac cath Hx of bilateral cataract extraction History of hysterectomy Family History Family History Father Medical history unknown Mother CVD (cardiovascular disease) Social History Social History Household Members: None Household Members Other:: Daughter and grandson Housing: [facility] Are you a primary patient care associate to a significant other at home: No Do you presently have visiting nurse or other home services: No Unable to assess alcohol history related to: Unknown Alcohol intake: never Comment: camera placed d/t pt removing nasal cannula continuously Patient Tobacco Use Status: Former Tobacco user Tobacco use type: Cigarette Cigarette Packs Per Day: 1 Cigarettes Per Day: 20.0 Years Smoked: 70 Smoked in Last 30 Days: No e-Cigarette/Vaping Use: Never Used Second Hand Smoke Exposure: Yes Use of substances other than those prescribed or required for medical reasons: No Advance Directives: Yes Advance Directives on File: Yes Advance Directives Date on File: 01/21/25 Do you have a plan to hurt others: No Plan service: No Current occupational status: retired and disabled Cognitive needs: No (cane/walker) Hearing needs: No Vision needs: No Physical Exam Exam: Exam: EXAM: Gen: Slightly drowsy eyes open speaking 2-3 words. Moderate respiratory distress tachypneic rate 26 Head: Atraumatic Eyes: Anicteric, Normal conjunctiva. ENT: Moist mucosa, no pallor. ? Neck: Supple. Skin: ?No observable rash or bruising on exposed or examined skin Respiratory: Decreased air entry, high-pitched expiratory wheeze audible in the upper lung zones decreased breath sounds in the lower lung zones especially posteriorly. Cardiovascular: Rapid and irregularly irregular. No murmurs or rub. Well perfused periphery, warm extremities. No edema. ? Abdominal: No focal tenderness. Soft, no objective distension. No palpable masses or obvious organomegaly. ?No guarding, no rebound tenderness or other peritoneal findings. : No flank tenderness. Neuro: Alert. Gross movement of all extremities intact. ? Psych: Calm. Cooperative. MSK: No grossly visible deformity. Vital signs: See flowsheet Vital Signs: Vital Signs: Last Vital Signs Temp 98.7 F 04/20/25 16:47 Pulse 116 H 04/20/25 16:47 Resp 18 04/20/25 16:47 BP 105/55 L 04/20/25 16:47 Pulse Ox 95 04/20/25 16:47 O2 Del Method Nasal Cannula 04/20/25 16:47 O2 Flow Rate 4 04/20/25 16:47 Oxygen Flow Rate 4 04/20/25 11:57 BMI result Body Mass Index 29.4 Medications Administered Generic Name Dose Route Start Last Admin Trade Name Freq PRN Reason Stop Dose Admin Piperacillin Sod/Tazobactam 50 mls @ 100 mls/hr 04/20/25 16:00 04/20/25 17:08 Sod 2.25 gm/ Sodium Chloride IV Infused Q6H TIARA Infusion Sodium Chloride 3 ml 04/20/25 16:00 04/20/25 15:05 0.9 % Sodium Chloride Flush 3 Ml Syringe IVFLUSH Not Given QSHIFT TIARA Discontinued Medications Generic Name Dose Route Start Last Admin Trade Name Freq PRN Reason Stop Dose Admin Albuterol/Ipratropium 3 ml 04/20/25 12:06 04/20/25 12:20 Albuterol/Iprat 2.5/0.5mg 3 Ml Ampul.Neb INHALE 04/20/25 12:07 3 ml ONCE ONE Administration Dextrose 25 gm 04/20/25 13:05 04/20/25 13:25 Dextrose 50 % 25 Gm/50 Ml Syringe IVPUSH 04/20/25 13:06 25 gm ONCE ONE Administration Furosemide 40 mg 04/20/25 12:06 04/20/25 12:35 Furosemide 40 Mg/4 Ml Vial IVPUSH 04/20/25 12:07 40 mg STAT STA Administration Protocol Furosemide 60 mg 04/20/25 13:51 04/20/25 14:33 Furosemide 100 Mg/10 Ml Vial IVPUSH 04/20/25 13:52 60 mg ONCE ONE Administration Protocol Metoprolol Tartrate 5 mg/ 55 mls @ 230 mls/hr 04/20/25 12:59 04/20/25 13:50 Sodium Chloride IV 04/20/25 13:13 Infused ONCE ONE Infusion Protocol Vancomycin HCl 1,500 mg/ 500 mls @ 333.333 mls/hr 04/20/25 14:21 04/20/25 16:35 Sodium Chloride IV 04/20/25 15:50 Infused ONCE ONE Infusion Insulin Human Regular 5 unit 04/20/25 13:05 04/20/25 13:31 Insulin Regular, Human 100 Unit/Ml 10 Ml Vial IVPUSH 04/20/25 13:06 5 unit ONCE ONE Administration Methylprednisolone Sodium Succinate 60 mg 04/20/25 12:06 04/20/25 12:35 Methylprednisolone Sod Succ 125 Mg/2 Ml Vial IVPUSH 04/20/25 12:07 60 mg ONCE ONE Administration Medical Decision Making Medical Decision Making MDM Narrative: Medical Decision Makin-year-old female with multiple comorbid medical conditions including AFib, CAD, COPD, HFrEF here with hypoxia noted by staff unclear duration. No reported cough or fever and she is afebrile rectally here. AFib with RVR in the 110s to 120s. Transient borderline low blood pressure large pleural effusions stable HFrEF on echo bedside. Plan for diuresis. Patient is CBC is unremarkable as no leukocytosis. Chemistry shows hyperkalemia no note of hemolysis. Patient is getting Lasix already received albuterol, there was no peaked T-waves or other ECG findings consistent with cardiac affective hyperkalemia we will give insulin 5, D50 x1. Continue respiratory support 4 L nasal cannula No ischemic changes on ECG. Lopressor for AFib with RVR Preliminary Favored Differential Diagnosis: AFib with RVR, decompensated CHF, acute hypoxic respiratory failure, unlikely PE, pleural effusion, electrolyte derangement, ACS, primary dysrhythmia, dehydration among additional considered etiologies Testing Interpreted Independently: ?See below for details Radiology or Lab testing Results Reviewed: ?See below for details Consults: ?See below for details Independent Historians/External Chart Reviews: ?See below for details Social Determinants of Health Impacting MDM/Planning: ?See below for details Differential Diagnosis Differential Diagnoses: The differential diagnosis associated with the presentation includes Preliminary Favored Differential Diagnosis: AFib with RVR, decompensated CHF, acute hypoxic respiratory failure, unlikely PE, pleural effusion, electrolyte derangement, ACS, primary dysrhythmia, dehydration among additional considered etiologies Consult Healthcare Provider Management of the patient was discussed with: Hospitalist Lab Data MDM Lab Attestation statement: I reviewed the patient's lab results. 04/20/25 12:22 04/20/25 14:04 Labs: Lab Results 04/20/25 04/20/25 04/20/25 Range/Units 12:22 12:23 12:29 WBC 10.3 (4.8-10.8) X10*3/uL RBC 4.27 (4.20-5.50) X10*6/uL Hgb 10.3 L (12.0-16.0) g/dl Hct 38.2 (37.0-47.0) % MCV 89.5 (80.0-98.0) fL MCH 24.1 L (27.0-33.0) pg MCHC 27.0 L (31.0-35.0) g/dl RDW 21.1 H (11.0-16.0) % Plt Count 317 D (160-400) X10*3/uL MPV 10.0 (9.4-12.3) fL Immature Gran % (Auto) 0.5 H (0.0-0.4) % Neut % (Auto) 80.0 H (45-73) % Lymph % (Auto) 9.8 L (20-40) % [place] % (Auto) 8.0 (2-11) % Eos % (Auto) 1.3 (0-4) % Baso % (Auto) 0.4 (0-2) % Lymph # (Auto) 1.0 L (1.2-4.9) X10*3/uL [place] # (Auto) 0.8 (0.1-1.2) X10*3/uL Eos # (Auto) 0.1 (0.0-0.4) X10*3/uL Baso # (Auto) 0.0 (0.0-0.2) X10*3/uL Abs Immat Gran (auto) 0.05 H (0.00-0.03) X10*3/uL Absolute Neuts (auto) 8.3 (2.0-8.3) x10*3/uL Absolute Nucleated RBC 0.060 H (0.0-0.012) X10*3/uL Nucleated RBC % (auto) 0.6 H (0.0-0.2) /100WBC PT 12.1 (10.9-12.4) SEC INR 1.1 (0.9-1.1) Hold Blue Top SEE NOTE VBG pH 7.35 (7.32-7.43) VBG pCO2 59 mmHg VBG pO2 55 mmHg VBG HCO3 33 H (22-26) mmol/L VBG O2 Saturation 86.0 % VBG Base Excess 5.9 mmol/L Sodium 138 (135-145) mmol/L Potassium 6.3 H* D (3.3-5.1) mmol/L Chloride 102 (96-108) mmol/L Carbon Dioxide 29 (22-29) mmol/L Anion Gap 13 (12-20) BUN 46 H (9-16) mg/dL Creatinine 1.88 H (0.5-1.4) mg/dL Estim Creat Clear Calc 19.0 Estimated GFR 25 POC Glucose (60-115) mg/dL Random Glucose 115 (60-115) mg/dL Calcium 9.7 (8.4-10.2) mg/dL Magnesium 2.5 (1.6-2.6) mg/dL Troponin I High Sens 20.5 H D (<3.5-17.0) ng/L B-Natriuretic Peptide 3296 H (<100) pg/mL TSH 2.80 (0.32-4.0) uIU/mL 04/20/25 Range/Units 13:24 WBC (4.8-10.8) X10*3/uL RBC (4.20-5.50) X10*6/uL Hgb (12.0-16.0) g/dl Hct (37.0-47.0) % MCV (80.0-98.0) fL MCH (27.0-33.0) pg MCHC (31.0-35.0) g/dl RDW (11.0-16.0) % Plt Count (160-400) X10*3/uL MPV (9.4-12.3) fL Immature Gran % (Auto) (0.0-0.4) % Neut % (Auto) (45-73) % Lymph % (Auto) (20-40) % [place] % (Auto) (2-11) % Eos % (Auto) (0-4) % Baso % (Auto) (0-2) % Lymph # (Auto) (1.2-4.9) X10*3/uL [place] # (Auto) (0.1-1.2) X10*3/uL Eos # (Auto) (0.0-0.4) X10*3/uL Baso # (Auto) (0.0-0.2) X10*3/uL Abs Immat Gran (auto) (0.00-0.03) X10*3/uL Absolute Neuts (auto) (2.0-8.3) x10*3/uL Absolute Nucleated RBC (0.0-0.012) X10*3/uL Nucleated RBC % (auto) (0.0-0.2) /100WBC PT (10.9-12.4) SEC INR (0.9-1.1) Hold Blue Top VBG pH (7.32-7.43) VBG pCO2 mmHg VBG pO2 mmHg VBG HCO3 (22-26) mmol/L VBG O2 Saturation % VBG Base Excess mmol/L Sodium (135-145) mmol/L Potassium (3.3-5.1) mmol/L Chloride (96-108) mmol/L Carbon Dioxide (22-29) mmol/L Anion Gap (12-20) BUN (9-16) mg/dL Creatinine (0.5-1.4) mg/dL Estim Creat Clear Calc Estimated GFR POC Glucose 112 (60-115) mg/dL Random Glucose (60-115) mg/dL Calcium (8.4-10.2) mg/dL Magnesium (1.6-2.6) mg/dL Troponin I High Sens (<3.5-17.0) ng/L B-Natriuretic Peptide (<100) pg/mL TSH (0.32-4.0) uIU/mL Independent Interpretation I performed an independent interpretation of an: EKG (Atrial fibrillation with RVR no ischemic changes no peaked T-waves or widened QRS) and Plain X-Ray (Bilateral pleural effusion rotated) Radiology Impression Discussion of test interpretation with radiology: I have reviewed the radiologist's reading. External Record Review External record reviewed: Other (Reviewed oct, form and additional clinical paperwork from the patient's facility) Chronic Conditions Patient?s care impacted by: Other (Atrial fibrillation, COPD, heart failure) Procedures Procedure Narrative Procedure Narrative: EMERGENCY ULTRASOUND INTERPRETATION-Limited Echocardiography [This study was ordered, performed, and interpreted by myself. The study reveals: Impression: Moderately reduced, NO RV dilation greater than 1-1, NO PERICARDIAL EFFUSION] [Emergent Cardiac for Indication: Views Used: PLAX, PSSA, A4, SX, IVC Pericardial Effusion/Tamponade Findings: NONE RV Dilation (> LV diam in 4ch apical): NONE Global LV Fxn: Moderately reduced Performed by: MD Paulina Images were stored CPT:25757] __ EMERGENCY ULTRASOUND INTERPRETATION-Point of Care Thoracic: IMPRESSION: NO FOCAL CONSILDATION, NO SUGGESTION OF PATHOLOGIC B LINES. Positive bilateral effusion. NO SUGGESTION OF PNEUMOTHORAX ON VISUALIZED PORTIONS OF THE CHEST Indication: Dyspnea Findings: Right Pleural 2ICS: ?POSITIVE SLIDING, No B Lines or Consolidation Right PLAPS: ?Effusion Left Pleural 2ICS: POSITIVE SLIDING, No B Lines or Consolidation Left PLAPS: Effusion Performed by: Jesus Gallardo MD ? Images were stored CPT: 50524,14615,44240] Critical Care Time Critical Care Time Critical Care Time: Yes Total Critical Care Time: 80 Attestation: ED Critical Care: Decompensated severe acute heart failure hypoxic respiratory failure, severe electrolyte derangement/hyperkalemia, atrial fibrillation with RVR Authorized and Performed by: Jesus Gallardo MD Total critical care time: Approximately 80 Due to a high probability of clinically significant, life threatening deterioration, the patient required my highest level of preparedness to intervene emergently and I personally spent this critical care time directly and personally managing the patient. This critical care time included obtaining a history; examining the patient; pulse oximetry; ordering and review of studies; arranging urgent treatment with development of a management plan; evaluation of patient's response to treatment; frequent reassessment; and, discussions with other providers. This critical care time was performed to assess and manage the high probability of imminent, life-threatening deterioration that could result in multi-organ failure. It was exclusive of separately billable procedures and treating other patients and teaching time. Discharge Plan Discharge Clinical Impression: Acute hyperkalemia, NEEL (acute kidney injury), Atrial fibrillation Patient Disposition: Admitted As Inpatient
[2025-04-20] MEDS: Albuterol/Iprat 2.5/0.5MG 3 ML AMPUL.NEB INHALE (12:20)
[2025-04-20 12:29] LABS: MANUAL DIFF FLAG NO
[2025-04-20 12:32] LABS: Venous Blood Gas Refer to POC result
[2025-04-20 12:32] LABS: VBG HCO3 33 mmol/L (22-26); VBG O2 % Saturation 86.0 %
[2025-04-20] MEDS: Furosemide 40 MG/4 ML VIAL IVPUSH (12:35)
[2025-04-20 12:39] LABS: Hematocrit 38.2 % (37.0-47.0); Hemoglobin 10.3 g/dl (12.0-16.0); Imm Gran Abs Auto 0.05 X10*3/uL (0.00-0.03); Imm Gran Pct Auto 0.5 % (0.0-0.4); Lymphocytes Absolute Auto 1.0 X10*3/uL (1.2-4.9); Mean Corpuscular HGB Conc 27.0 g/dl (31.0-35.0); Mean Corpuscular Hemoglobin 24.1 pg (27.0-33.0); Mean Corpuscular Volume 89.5 fL (80.0-98.0); NRBC Abs Auto 0.060 X10*3/uL (0.0-0.012); NRBC Pct Auto 0.6 /100WBC (0.0-0.2); Platelet Count 317 X10*3/uL (160-400); Red Blood Count 4.27 X10*6/uL (4.20-5.50); White Blood Count 10.3 X10*3/uL (4.8-10.8)
[2025-04-20 12:54] LABS: B Type Natriuretic Peptide 3296 pg/mL (<100); Troponin-I High Sensitivity 20.5 ng/L (<3.5-17.0)
[2025-04-20 13:02] LABS: Anion Gap 13 (12-20); Blood Urea Nitrogen 46 mg/dL (9-16); Calcium 9.7 mg/dL (8.4-10.2); Carbon Dioxide 29 mmol/L (22-29); Chloride 102 mmol/L (96-108); Creatinine Clr Calc Pharmacy 19.0; Estimated Glomerular Filt Rate 25; Magnesium 2.5 mg/dL (1.6-2.6); Potassium 6.3 mmol/L (3.3-5.1); Sodium 138 mmol/L (135-145)
[2025-04-20] MEDS: Metoprolol Tartrate 5 MG in 0.9 % Sodium Chloride 50 ML 230 MG IV (13:25)
[2025-04-20 13:28] LABS: Glucose, Whole Blood 112 mg/dL (60-115)
--- NOTE | 2025-04-20 13:35 | PC.NURSE ---
pt remains in afib RVR w/ a rate between 120-130bpm. pt also noted to be hyperkalemic. POC obtained displaying 112mg/dL prior to medication administration. effectiveness pending. pt otherwise remains somnolent - responsive to physical stimuli only. vss and up to date. on 4L via NC. no apparent respiratory distress. no sob/wob noted. respirations even.unlabored. plan of care ongoing. call esquivel placed within reach.
--- NOTE | 2025-04-20 13:35 | PM.IMHP ---
History of Present Illness Date of Service: 04/20/25 Chief Complaint: Acute hypoxic respiratory failure Patient is an 89-year-old senior care resident with known dementia, medical history of COPD, acute on chronic hypoxic respiratory failure requiring 2 L at baseline, AFib without Eliquis given UGI be in prior admission, CKD stage 3, esophagitis, Schatzki's ring, esophagitis, gastritis, diverticulosis, internal hemorrhoids, AVM BIBA from her nursing facility for acute onset hypoxic read respiratory failure in the upper 80s requiring 10 L by face mask. Report last month showed that she had massive GI bleed requiring stopping Eliquis and required nearly 6 units transfusion. Patient is a poor historian at baseline dementia. Spoke to the daughter Jaki who is the healthcare proxy. Per triage note the patient was noted to be hypoxic requiring nearly 4 L by nasal cannula in the ER she was noted to have required nearly 10 L via non-rebreather with good effect. She was noted to have HFrEF, increased bilateral opacities, left lower lobe pneumonia that appears to be forming, although no overt signs of sepsis (negative leukocytosis, no venous lactate, no elevation of inflammatory markers). She was also noted to have acute urinary retention retaining nearly 400 mL, UA was positive for leukocyte esterase and nitrates however the patient is unable to endorse any symptoms hence we will treat it as a UTI even though it could be confounding. Sepsis workup was initiated and she is being admitted for broad-spectrum antibiotics We are trying to aggressively diurese her given HFrEF causing acute hypoxic respiratory failure and hence fluids are limited in her current condition I have confirmed with the daughter that the patient did not want aggressive measures I have ordered noninvasive ventilation as a backup Review of Systems Review of Systems: Yes Unobtainable due to mental condition and Unobtainable due to mental status [facility] Medical History Congestive heart failure Coronary artery disease Acute congestive heart failure Atrial fibrillation with rapid ventricular response PAD (peripheral artery disease) Cholelithiasis CHF (congestive heart failure) Falls Afib Macular degeneration Overweight (BMI 25.0-29.9) COVID-19 vaccine administered History of COVID-19 Restrictive lung disease Edema Current smoker Iron deficiency anemia Tobacco abuse Carotid bruit Obesity (BMI 30-39.9) Depression Insomnia Allergic rhinitis Elevated TSH GERD without esophagitis Impaired fasting glucose Anemia Knee osteoarthritis Vitamin D deficiency Chronic kidney disease (CKD), stage III (moderate) Pure hypercholesterolemia Benign essential hypertension Family History Father Medical history unknown Mother CVD (cardiovascular disease) Surgical History Hx of total knee arthroplasty Hx of colonoscopy Hx of cardiac cath Hx of bilateral cataract extraction History of hysterectomy Social History Household Members: None Household Members Other:: Daughter and grandson Housing: [facility] Are you a primary acute care certified nursing assistant to a significant other at home: No Do you presently have visiting nurse or other home services: No Unable to assess alcohol history related to: Unknown Alcohol intake: never Comment: camera placed d/t pt removing nasal cannula continuously Patient Tobacco Use Status: Former Tobacco user Tobacco use type: Cigarette Cigarette Packs Per Day: 1 Cigarettes Per Day: 20.0 Years Smoked: 70 Smoked in Last 30 Days: No e-Cigarette/Vaping Use: Never Used Second Hand Smoke Exposure: Yes Use of substances other than those prescribed or required for medical reasons: No Advance Directives: Yes Advance Directives on File: Yes Advance Directives Date on File: 01/21/25 Do you have a plan to hurt others: No Plan service: No Current occupational status: retired and disabled Cognitive needs: No (cane/walker) Hearing needs: No Vision needs: No Meds Allergies Allergy/AdvReac Type Severity Reaction Status Date / Time atorvastatin AdvReac Intermediate myalgias Verified 04/20/25 12:02 Home Medications ?Medication ?Instructions ?Recorded ?Confirmed ?Last Taken ?Type brimonidine 0.2 % eye drops 1 drp ophthalmic (eye) TID macular 04/17/23 04/20/25 Unknown History degeneration rosuvastatin 20 mg tablet 20 mg PO BEDTIME 08/27/24 04/20/25 1 Day Ago History ~12/27/24 acetaminophen 325 mg tablet 975 mg PO TID PRN Pain 01/15/25 04/20/25 Unknown History magnesium hydroxide 400 mg/5 mL 30 ml PO DAILY PRN Constipation 01/15/25 04/20/25 Unknown History oral suspension (Milk of Magnesia) sodium phosphates 19 gram-7 118 ml SD DAILY PRN Constipation 01/15/25 04/20/25 Unknown History gram/118 mL enema (Fleet Enema) bisacodyl 10 mg rectal suppository 10 mg SD DAILY PRN Constipation 03/23/25 04/20/25 Unknown History diclofenac sodium 1 % topical gel 4 g topical QID PRN Pain 03/23/25 04/20/25 Unknown History Held on 03/26/25. Instructions: Resume on 05/28/25. melatonin 3 mg tablet 3 mg PO BEDTIME 03/23/25 04/20/25 Unknown History metoprolol succinate 25 mg 25 mg PO DAILY 03/23/25 04/20/25 Unknown History tablet,extended release 24 hr pantoprazole 40 mg tablet,delayed 40 mg PO DAILY@0630 03/23/25 04/20/25 Unknown History release phenazopyridine 100 mg tablet 100 mg PO TID PRN Bladder 03/23/25 04/20/25 Unknown History (Pyridium) pain/discomfort potassium chloride 10 mEq 20 meq PO DAILY 03/23/25 04/20/25 Unknown History tablet,extended release ascorbic acid (vitamin C) 500 mg 500 mg PO DAILY 04/20/25 04/20/25 Unknown History tablet (Vitamin C) gabapentin 100 mg capsule 100 mg PO BID 04/20/25 04/20/25 Unknown History Physical Exam Vital Signs and Narrative: Vital Signs: Last Vital Signs Temp 98.6 F 04/20/25 11:57 Pulse 115 H 04/20/25 13:24 Resp 17 04/20/25 13:24 BP 108/69 04/20/25 13:24 Pulse Ox 97 04/20/25 13:24 O2 Del Method Nasal Cannula 04/20/25 13:24 O2 Flow Rate 4 04/20/25 13:24 Oxygen Flow Rate 4 04/20/25 11:57 BMI result Body Mass Index 29.4 General: Appears to be in respiratory distress requiring accessory muscle use, barely able to answer questions is not even able to nod Resp: Patient unable to lean forward to auscultate CVS:irregularly irregular rhythm with tachycardia GI: +BS, NT, no distention Skin: Dry : No suprapubic tenderness noted Extremities: Decreased skin turgor noted Psych: AMS Results Labs 04/20/25 12:22 04/20/25 14:04 Labs: Laboratory Results - last 24 hr 04/20/25 04/20/25 04/20/25 12:22 12:23 12:29 MCV 89.5 MCH 24.1 L MCHC 27.0 L RDW 21.1 H Plt Count 317 D MPV 10.0 Immature Gran % (Auto) 0.5 H Neut % (Auto) 80.0 H Lymph % (Auto) 9.8 L Toole % (Auto) 8.0 Eos % (Auto) 1.3 Baso % (Auto) 0.4 Lymph # (Auto) 1.0 L Toole # (Auto) 0.8 Eos # (Auto) 0.1 Baso # (Auto) 0.0 Abs Immat Gran (auto) 0.05 H Absolute Neuts (auto) 8.3 Absolute Nucleated RBC 0.060 H Nucleated RBC % (auto) 0.6 H Hold Blue Top SEE NOTE VBG pH 7.35 VBG pCO2 59 VBG pO2 55 VBG HCO3 33 H VBG O2 Saturation 86.0 VBG Base Excess 5.9 Anion Gap 13 Estim Creat Clear Calc 19.0 Estimated GFR 25 POC Glucose Random Glucose 115 Calcium 9.7 Magnesium 2.5 B-Natriuretic Peptide 3296 H 04/20/25 13:24 MCV MCH MCHC RDW Plt Count MPV Immature Gran % (Auto) Neut % (Auto) Lymph % (Auto) Toole % (Auto) Eos % (Auto) Baso % (Auto) Lymph # (Auto) Toole # (Auto) Eos # (Auto) Baso # (Auto) Abs Immat Gran (auto) Absolute Neuts (auto) Absolute Nucleated RBC Nucleated RBC % (auto) Hold Blue Top VBG pH VBG pCO2 VBG pO2 VBG HCO3 VBG O2 Saturation VBG Base Excess Anion Gap Estim Creat Clear Calc Estimated GFR POC Glucose 112 Random Glucose Calcium Magnesium B-Natriuretic Peptide Imaging Radiologist's Impressions: Impressions Chest X-Ray 04/20/25 13:10 IMPRESSION: Suspected pulmonary edema and cardiomegaly with left greater than right pleural effusions, increased from the prior. Left basilar pneumonia it is not ruled out. Electronically signed by: Kapil Paula MD 04/20/2025 01:31 PM EDT Assessment and Plan (1) HFrEF (heart failure with reduced ejection fraction): Status: Acute Plan Patient is an 89-year-old senior care resident with known dementia, medical history of COPD, acute on chronic hypoxic respiratory failure requiring 2 L at baseline, AFib without Eliquis given UGI be in prior admission, CKD stage 3, esophagitis, Schatzki's ring, esophagitis, gastritis, diverticulosis, internal hemorrhoids, AVM BIBA from her nursing facility for acute onset hypoxic read respiratory failure in the upper 80s requiring 10 L by face mask. Report last month showed that she had massive GI bleed requiring stopping Eliquis and required nearly 6 units transfusion. Patient is a poor historian at baseline dementia. Acute on chronic hypoxic hypoxemic respiratory failure likely in the setting of sepsis-left lower lobe pneumonia versus UTI COPD on 2L o2 at baseline Afib not on Eliquis 2/2 massive GIB per pprior multidisciplinary mx 2 weeks ago Patient started on broad-spectrum antibiotics, Zosyn, vancomycin, azithromycin Fluids are limited and we are now having to diurese her aggressively given HFrEF and hypoxia and hypoxemia We will also monitor her vitals closely and give fluids accordingly She appears to have her baseline blood pressure around 90/50 which she is at Interestingly the patient does not have any overt signs of sepsis however given her comorbidities, she may not be able to mount aggressive/appropriate response to sepsis hence broad-spectrum antibiotics are being warranted The daughter did mention that given her massive GI bleed requiring multiple scopes and multiple rounds of transfusion, decision has been made to discontinue Eliquis I did mentioned to the daughter who is the healthcare proxy that she is at a high risk of stroke hence I scanned the head CT which was negative thus far for any acute intracranial pathology In she does have chronic changes which is likely secondary to age HFrEF AFib with RVR AFib not on Eliquis- 2/2 massive GIB per pprior multidisciplinary mx 2 weeks ago Spoke to the daughter Jaki who is the healthcare proxy. Per triage note the patient was noted to be hypoxic requiring nearly 4 L by nasal cannula in the ER she was noted to have required nearly 10 L via non-rebreather with good effect. She was noted to have HFrEF, increased bilateral opacities, left lower lobe pneumonia that appears to be forming, although no overt signs of sepsis (negative leukocytosis, no venous lactate, no elevation of inflammatory markers). We will treat AFib with RVR with metoprolol to maintain hemodynamic status Repeat TTE ordered BMP elevated Possible UTI Fajardo placed this admission- secondary to acute urinary retention CKD stage 3-baseline Patient unable to endorse symptoms however her UA appears to be positive Patient with medical comorbidities may not be able to express/mount an appropriate response and hence we are treating her with broad-spectrum antibiotics Fajardo is indicated as she is retaining and that could exacerbate her AMS/UTI or cause bacteremia hence it is indicated even though UA is positive Massive GI bleed 2 weeks ago requiring discontinuation of oral anticoagulants esophagitis, Schatzki's ring, esophagitis, gastritis, diverticulosis, internal hemorrhoids, AVM We will continue to monitor CBC daily DVT with SCD boots given GI bleed Prognosis guarded If the patient were to decompensate-please reach out to the healthcare proxy Jaki prior to escalating care Quality Stroke Does the patient have a stroke diagnosis?: No VTE Prior VTE?: No VTE Risk Level:: Medical - moderate - high VTE Device Contraindication: N/A - Device Ordered VTE Drug Contraindication: Treatment Not Tolerated
[2025-04-20 14:12] LABS: Glucose, Whole Blood 195 mg/dL (60-115)
[2025-04-20] MEDS: Furosemide 100 MG/10 ML VIAL 60 MG IVPUSH (14:33)
[2025-04-20 14:42] LABS: Thyroid Stimulating Hormone 2.80 uIU/mL (0.32-4.0)
--- OUTSIDE RECORDS SUMMARY | 2025-04-20 14:42 | XMS_ITS | Clinical Summary ---
Author Organization [address] [facility] Address [address] [place] [address] Phone Care Team Providers Care Truck Bracer Name Role Phone Jessica Allen MD Primary Care Provider [phone] Encounters Date Type Department Care Team Description 04/20/2025 Lab Requisition [facility] Lab [address] [place] [phone] Jessica Allen MD Gastrointestinal hemorrhage, unspecified; Hypokalemia; Chronic kidney disease, stage 3 unspecified (CMS/HCC V24, CMS/HCC V28) 04/02/2025 Lab Requisition [facility] Lab [address] [place] [phone] Jessica Allen MD Anemia, unspecified; Heart failure, unspecified (CMS/HCC V24, CMS/HCC V28) 04/02/2025 Lab Requisition [facility] [address] [place] [phone] Jessica Allen MD Heart failure, unspecified (CMS/HCC V24, CMS/HCC V28); Anemia, unspecified 03/29/2025 Lab Requisition [facility] [address] [place] [phone] Jessica Allen MD Anemia, unspecified; Heart failure, unspecified (CMS/HCC V24, CMS/HCC V28); Gastrointestinal hemorrhage, unspecified 03/23/2025 Lab Requisition [facility] [address] [place] [phone] Jessica Allen MD Anemia, unspecified; Hypokalemia 03/18/2025 Lab Requisition [facility] Lab [address] [place] [phone] Jessica Allen MD Unspecified systolic (congestive) heart failure ([facility] V24, [facility] V28); Essential (primary) hypertension 03/03/2025 Lab Requisition [facility] Lab [address] [place] [phone] Jessica Allen MD Unspecified systolic (congestive) heart failure ([facility] V24, [facility] V28); Unspecified atrial fibrillation ([facility] V24, [facility] V28); Essential (primary) hypertension; Chronic obstructive pulmonary disease, unspecified ([facility] V24, [facility] V28); Chronic kidney disease, unspecified; Hypokalemia 02/24/2025 Lab Requisition [facility] Lab [address] [place] [phone] Jessica Allen MD Urinary tract infection, site not specified 02/13/2025 Lab Requisition [facility] [address] [place] [phone] Jessica Allen MD Essential (primary) hypertension 02/13/2025 Lab Requisition [facility] [address] [place] [phone] Jessica Allen MD Urinary tract infection, site not specified; Dysuria; Frequency of micturition 01/29/2025 Lab Requisition [facility] [address] [place] [phone] Jessica Allen MD Sepsis, unspecified organism ([facility] V24, [facility] V28); Peripheral vascular disease, unspecified ([facility] V24) 01/27/2025 Lab Requisition [facility] [address] [place] [phone] Jessica Allen MD Sepsis, unspecified organism ([facility] V24, [facility] V28) from Last 3 Months Social History Tobacco Use Types Packs/Day Years Used Date Smoking Tobacco: Never Assessed Comments Unknown Sex and Gender Information Value Date Recorded Sex Assigned at Not on file Legal Sex Female 9:02 AM EDT Gender Identity Not on file Sexual Orientation Not on file Plan of Treatment Health Maintenance Due Date Last Done Comments DTaP,Tdap,and Td Vaccines (1 - Tdap) 1954 Pneumococcal Vaccine: 50+ Years (1 of 2 - PCV) 1954 Zoster Vaccines (1 of 2) 1985 RSV Immunization Adult Patients (1 - 1-dose 75+ series) 2010 Depression Screening 08/19/2024 Cholesterol Screening (Lipid Panel) 01/03/2025 Falls Risk Assessment 01/03/2025 Medicare Annual Wellness Visit 01/03/2025 Osteoporosis Screening (Bone Density Screening) 01/03/2025 Social Influencers of Health Screening 01/03/2025 COVID-19 Vaccine ( season) 2025 Influenza Vaccine (#1) 2025 Hypertension/CHF/CAD Annual BMP Blood Test 04/02/2026 04/02/2025, 03/29/2025, 03/23/2025, Additional history exists HIB Vaccines Aged Out No longer eligi [...] on patient's age to complete this topic MMR Vaccines Aged Out No longer eligi ble based on patient's age to complete this topic Meningococcal ACWY Vaccine Aged Out N o longer eligible based on patient's age to complete this topic Meningococcal B Vaccine Aged Out No l onger eligible based on patient's age to complete this topic RSV Immunization Patients Under 20 months Aged Out No longer eligible based on patient's age to complete this topic Varicella Vaccines Aged Out No longer eligible based on patient's age to complete this topic Procedures Procedure Name Priority Date/Time Associated Diagnosis Comments COMPLETE BLOOD COUNT Routine 04/20/2025 5:31 AM EDT Gastrointestinal hemorrhage, unspecified Hypokalemia Chronic kidney disease, stage 3 unspecified (CMS/HCC V24, CMS/HCC V28) BASIC METABOLIC PANEL Routine 04/02/2025 6:08 AM EDT Anemia, unspecified Heart failure, unspecified (CMS/HCC V24, CMS/HCC V28) COMPLETE BLOOD COUNT Routine 04/02/2025 6:08 AM EDT Anemia, unspecified Heart failure, unspecified (CMS/HCC V24, CMS/HCC V28) BASIC METABOLIC PANEL Routine 03/29/2025 8:17 AM EDT Anemia, unspecified Heart failure, unspecified (CMS/HCC V24, CMS/HCC V28) Gastrointestinal hemorrhage, unspecified COMPLETE BLOOD COUNT Routine 03/29/2025 8:17 AM EDT Anemia, unspecified Heart failure, unspecified (CMS/HCC V24, CMS/HCC V28) Gastrointestinal hemorrhage, unspecified BASIC METABOLIC PANEL Routine 03/23/2025 5:02 AM EDT Anemia, unspecified Hypokalemia COMPLETE BLOOD COUNT Routine 03/23/2025 5:02 AM EDT Anemia, unspecified Hypokalemia BASIC METABOLIC PANEL Routine 03/18/2025 4:45 AM EDT Unspecified systolic (congestive) heart failure (CMS/HCC V24, CMS/HCC V28) Essential (primary) hypertension AMMONIA Routine 03/03/2025 7:24 AM EDT Unspecified [...] CMS/HCC V28) Chronic kidney disease, unspecified Hypokalemia COMPLETE BLOOD COUNT Routine 03/03/2025 7:24 AM EDT Unspecified systolic (congestive) heart failure (CMS/HCC V24, CMS/HCC V28) Unspecified atrial fibrillation (CMS/HCC V24, CMS/HCC V28) Essential (primary) hypertension Chronic obstructive pulmonary disease, unspecified (CMS/HCC V24, CMS/HCC V28) Chronic kidney disease, unspecified Hypokalemia URINALYSIS WITH REFLEX MICROSCOPIC Routine 02/23/2025 6:30 PM EDT Urinary tract infection, site not specified TIGER TOP URINE TUBE Routine 02/23/2025 6:30 PM EDT Urinary tract infection, site not specified URINALYSIS WITH REFLEX MICROSCOPIC Routine 02/23/2025 6:30 PM EDT Urinary tract infection, site not specified CULTURE URINE Routine 02/23/2025 6:30 PM EDT Urinary tract infection, site not specified BASIC METABOLIC PANEL Routine 02/13/2025 6:41 AM EDT Essential (primary) hypertension COMPLETE BLOOD COUNT Routine 02/13/2025 6:41 AM EDT Essential (primary) hypertension URINALYSIS WITH REFLEX MICROSCOPIC Routine 02/12/2025 12:00 AM EDT Urinary tract infection, site not specified Dysuria Frequency of micturition URINALYSIS WITH REFLEX MICROSCOPIC Routine 02/12/2025 12:00 AM EDT Urinary tract infection, site not specified Dysuria Frequency of micturition CULTURE URINE Routine 02/12/2025 12:00 AM EDT Urinary tract infection, site not specified Dysuria Frequency of micturition BASIC METABOLIC PANEL Routine 02/01/2025 5:49 AM EDT Sepsis, unspecified organism (CMS/HCC V24, CMS/HCC V28) Peripheral vascular disease, unspecified (CMS/HCC V24) BASIC METABOLIC PANEL Routine 01/27/2025 5:11 AM EDT Sepsis, unspecified organism (CMS/HCC V24, CMS/HCC V28) COMPLETE BLOOD COUNT Routine 01/27/2025 5:11 AM EDT Sepsis, unspecified organism (CMS/HCC V24, CMS/HCC V28) from Last 3 Months Results * (ABNORMAL) Complete blood count (04/20/2025 5:31 AM EDT) Only the most recent of7 resultswithin the time period is included. WBC 9.2 4.8 - 10.8 K/mcL LAB [facility]EM[facility]OLOG[facility] RBC 4.20 3.80 - 4.80 M/mcL LAB HEMETOLOGY METHOD 04/20/2025 1:33 PM [facility] Hemoglobin 10.0(L) 11.5 - 16.0 g/dL LAB HEMETOLOGY METHOD 04/20/2025 1:33 PM [facility] LAB Hematocrit 38.8 35.0 - 47.0 % LAB HEMETOLOGY METHOD 04/20/2025 1:33 PM [facility] LAB MCV 92.4 79.0 - 98.0 FL LAB HEMETOLOGY METHOD 04/20/2025 1:33 PM [facility] MCH 23.8(L) 27.0 - 32.0 pcg LAB HEMETOLOGY METHOD 04/20/2025 1:33 PM [facility] LAB MCHC 25.8(L) 32.0 - 37.0 g/dL LAB HEMETOLOGY METHOD 04/20/2025 1:33 PM EDT [facility] RDW 21.0(H) 11.0 - 15.0 % LAB HEMETOLOGY METHOD 04/20/2025 1:33 PM EDT [facility] Platelets 315 130 - 400 K/mcL LAB HEMETOLOGY METHOD 04/20/2025 1:33 PM EDT [facility] MPV 10.3 7.0 - 11.0 FL LAB HEMETOLOGY METHOD 04/20/2025 1:33 PM EDT [facility] NRBC 0.3 <1.0 % LAB HEMETOLOGY METHOD 04/20/2025 1:33 PM EDT [facility] NRBC Absolute 0.03 <0.10 K/mcL [facility] 04/20/2025 1:33 PM EDT [facility] Blood Venous blood specimen / Unknown Venipuncture / Unknown 04/20/2025 5:31 AM EDT 04/20/2025 12:47 PM EDT us Jessica Allen MD LAB BLOOD ORDERABLES Final Resul t [facility] [address] [place] [address], * (ABNORMAL) Basic metabolic panel (04/02/2025 6:08 AM EDT) Only the most recent of7 resultswithin the time period is included. Sodium 137 133 - 145 mmol/L LAB CHEMISTRY METHOD 04/02/2025 12:48 PM EDT [facility] Potassium 4.2 3.5 - 5.5 mmol/L LAB CHEMISTRY METHOD 04/02/2025 12:48 PM EDT [facility] Chloride 98 96 - 110 mmol/L LAB CHEMISTRY METHOD 04/02/2025 12:48 PM [facility] CO2 33(H) 21 - 32 mmol/L LAB CHEMISTRY METHOD 04/02/2025 12:48 PM [facility] Anion Gap 6 3 - 11 LAB CHEMISTRY METHOD 04/02/2025 12:48 PM [facility] Glucose 67(L) 70 - 100 mg/dL LAB CHEMISTRY METHOD 04/02/2025 12:48 PM [facility] BUN 21 5 - 25 mg/dL LAB CHEMISTRY METHOD 04/02/2025 12:48 PM [facility] Creatinine 1.22(H) 0.50 - 1.10 mg/dL LAB CHEMISTRY METHOD 04/02/2025 12:48 PM [facility] LAB eGFR 43(L) >=60 mL/min/1. 73m2 LAB CHEMISTRY METHOD 04/02/2025 12:48 PM [facility] Comment:Calculation based on the Chronic Kidney Disease Epidemiology Collaboration (CKD-EPI) equation refit without adjustment for race. BUN/Creatinine Ratio 17.2 LAB CHEMISTRY METHOD 04/02/2025 12:48 PM [facility] Calcium 8.8 8.5 - 10.5 mg/dL LAB CHEMISTRY METHOD 04/02/2025 12:48 PM [facility] Blood Venous blood specimen / Unknown Venipuncture / Unknown 04/02/2025 6:08 AM EDT 04/02/2025 10:59 AM EDT us Jessica Allen MD LAB BLOOD ORDERABLES Final Resul t [facility] [address] [place] [address], * (ABNORMAL) Ammonia (03/03/2025 7:24 AM EDT) Ammonia 46(H) 11 - 35 mcmol/L LAB CHEMISTRY METHOD 03/03/2025 8:57 AM [facility] Blood Venous blood specimen / Unknown Venipuncture / Unknown 03/03/2025 7:24 AM EDT 03/03/2025 8:20 AM EDT us Jessica Allen MD LAB BLOOD ORDERABLES Final Resul t [facility] [address] [place] [address], * (ABNORMAL) Comprehensive metabolic panel (03/03/2025 7:24 AM EDT) Sodium 134 133 - 145 mmol/L LAB CHEMISTRY METHOD 03/03/2025 9:46 AM [facility] Potassium 4.9 3.5 - 5.5 mmol/L LAB CHEMISTRY METHOD 03/03/2025 9:46 AM [facility] Chloride 103 96 - 110 mmol/L LAB CHEMISTRY METHOD 03/03/2025 9:46 AM [facility] CO2 25 21 - 32 mmol/L LAB CHEMISTRY METHOD 03/03/2025 9:46 AM [facility] Anion Gap 6 3 - 11 LAB CHEMISTRY METHOD 03/03/2025 9:46 AM [facility] Glucose 84 70 - 100 mg/dL LAB CHEMISTRY METHOD 03/03/2025 9:46 AM [facility] BUN 33(H) 5 - 25 mg/dL LAB CHEMISTRY METHOD 03/03/2025 9:46 AM [facility] Creatinine 2.48(H) 0.50 - 1.10 mg/dL LAB CHEMISTRY METHOD 03/03/2025 9:46 AM [facility] eGFR 18(L) >=60 mL/min/1. 73m2 LAB CHEMISTRY METHOD 03/03/2025 9:46 AM [facility] Comment:Calculation based on the Chronic Kidney Disease Epidemiology Collaboration (CKD-EPI) equation refit without adjustment for race. BUN/Creatinine Ratio 13.3 LAB CHEMISTRY METHOD 03/03/2025 9:46 AM [facility] Calcium 9.3 8.5 - 10.5 mg/dL LAB CHEMISTRY METHOD 03/03/2025 9:46 AM [facility] AST (SGOT) 45(H) 10 - 42 unit/L LAB CHEMISTRY METHOD 03/03/2025 9:46 AM [facility] ALT (SGPT) 32 10 - 60 unit/L LAB CHEMISTRY METHOD 03/03/2025 9:46 AM [facility] Alkaline Phosphatase 111 42 - 121 unit/L LAB CHEMISTRY METHOD 03/03/2025 9:46 AM [facility] Total Protein 6.3 6.0 - 8.0 g/dL LAB CHEMISTRY METHOD 03/03/2025 9:46 AM [facility] Albumin 2.9(L) 3.2 - 5.0 g/dL LAB CHEMISTRY METHOD 03/03/2025 9:46 AM [facility] Total Bilirubin 1.0 0.0 - 1.4 mg/dL LAB CHEMISTRY METHOD 03/03/2025 9:46 AM [facility] Blood Venous blood specimen / Unknown Venipuncture / Unknown 03/03/2025 7:24 AM EDT 03/03/2025 8:20 AM EDT us Jessica Allen MD LAB BLOOD ORDERABLES Final Resul t [facility] [address] [place] [address], * (ABNORMAL) Urinalysis with reflex microscopic (02/23/2025 6:30 PM EDT) Only the most recent of2 resultswithin the time period is included. Pathologist [facility] Specific [place] Urine 1.018 1.003 - 1.030 LAB URINALYSIS - AUTOMATED METHOD 02/24/2025 10:07 AM [facility] pH, Urine 6.0 5.0 - 8.0 pH LAB URINALYSIS - AUTOMATED METHOD 02/24/2025 10:07 AM [facility] Leukocytes, Urine Moderate(A) Negative LAB URINALYSIS - AUTOMATED METHOD 02/24/2025 10:07 AM [facility] Nitrite, Urine Negative Negative LAB URINALYSIS - AUTOMATED METHOD 02/24/2025 10:07 AM [facility] Protein, Urine 300(A) <=Trace mg/dL LAB URINALYSIS - AUTOMATED METHOD 02/24/2025 10:07 AM [facility] Glucose, Urine Negative Negative mg/dL LAB URINALYSIS - AUTOMATED METHOD 02/24/2025 10:07 AM [facility] Ketones, Urine Negative Negative mg/dL LAB URINALYSIS - AUTOMATED METHOD 02/24/2025 10:07 AM [facility] Urobilinogen , Urine 0.2 0.2 - 1.0 mg/dL LAB URINALYSIS - AUTOMATED METHOD 02/24/2025 10:07 AM [facility] Bilirubin, Urine Negative Negative LAB URINALYSIS - AUTOMATED METHOD 02/24/2025 10:07 AM [facility] Blood, Urine Negative Negative LAB URINALYSIS - AUTOMATED METHOD 02/24/2025 10:07 AM [facility] RBC, Urine 0.0 0 - 4 /HPF LAB URINALYSIS - AUTOMATED METHOD 02/24/2025 10:07 AM [facility] WBC, Urine 17.9(H) 0 - 4 /HPF LAB URINALYSIS - AUTOMATED METHOD 02/24/2025 10:07 AM [facility] Squamous Epithelial, Urine 15 0 - 60 /LPF LAB URINALYSIS - AUTOMATED METHOD 02/24/2025 10:07 AM EDT [facility] Non-Squamous Epithelial, Urine 2-5 Transitional epithelial cells. /LPF LAB URINALYSIS - AUTOMATED METHOD 02/24/2025 10:07 AM EDT [facility] Bacteria, Urine Few(A) Negative /HPF LAB URINALYSIS - AUTOMATED METHOD 02/24/2025 10:07 AM EDT [facility] Hyaline Casts, Urine 0.8 0 - 3 /LPF LAB URINALYSIS - AUTOMATED METHOD 02/24/2025 10:07 AM EDT [facility] Urine Urine specimen obtained by clean catch procedure / Unknown Non-blood Collection / Unknown 02/23/2025 6:30 PM EDT 02/24/2025 8:19 AM EDT us Jessica Allen MD LAB URINE ORDERABLES Final Resul t Performing Organization Address City/[facility]/ZIP Co de Phone Number [facility] [address] [place] [address], [place] [phone] * Rheems top urine tube (02/23/2025 6:30 PM EDT) Extra Tube Hold for add-ons. 02/24/2025 10:01 AM EDT [facility] Comment:Auto resulted. Urine Urine specimen obtained by clean catch procedure / Unknown Non-blood Collection / Unknown 02/23/2025 6:30 PM EDT 02/24/2025 8:19 AM EDT us Jessica Allen MD LAB URINE ORDERABLES Final Resul t Performing Organization Address [facility]/ZIP Co de Phone Number [facility] [address] [place] [address], [place] [phone] * (ABNORMAL) Culture urine (02/23/2025 6:30 PM EDT) Only the most recent of2 resultswithin the time period is included. Culture, Urine 10,000-49,000 CFU/mL Klebsiella pneumoniae ssp pneumoniae(A) SRIKANTH 02/26/2025 11:16 AM EDT [facility] Comment: This is an edited result. Previous organism was Gram negative bacilli on 02/25/2025 at 0829 EDT. Urine Urine specimen obtained by clean catch procedure / Unknown Non-blood Collection / Unknown 02/23/2025 6:30 PM EDT 02/24/2025 8:19 AM EDT Narrative [facility] - 02/26/2025 11:16 AM EDT Additional colony types present in insignificant amounts. Organism Antibiotic Method Susceptibility Klebsiella pneumoniae ssp pneumoniae Amoxicillin/Clavulanate SRIKANTH <=2 ug/ml: Susceptible Klebsiella pneumoniae ssp pneumoniae Ampicillin/Sulbactam SRIKANTH 4 ug/ml: Susceptible Klebsiella pneumoniae ssp pneumoniae Piperacillin/Tazobactam SRIKANTH <=4 ug/ml: Susceptible Klebsiella pneumoniae ssp pneumoniae Cefazolin (Urine) SRIKANTH 2 ug/ml: Susceptible Klebsiella pneumoniae ssp pneumoniae Cefoxitin SRIKANTH <=4 ug/ml: Susceptible Klebsiella pneumoniae ssp pneumoniae Ceftazidime SRIKANTH <=0.5 ug/ml: Susceptible Klebsiella pneumoniae ssp pneumoniae Ceftriaxone SRIKANTH <=0.25 ug/ml: Susceptible Klebsiella pneumoniae ssp pneumoniae Cefepime SRIKANTH <=0.12 ug/ml: Susceptible Klebsiella pneumoniae ssp pneumoniae Meropenem SRIKANTH <=0.25 ug/ml: Susceptible Klebsiella pneumoniae ssp pneumoniae Amikacin SRIKANTH <=1 ug/ml: Susceptible Klebsiella pneumoniae ssp pneumoniae Gentamicin SRIKANTH <=1 ug/ml: Susceptible Klebsiella pneumoniae ssp pneumoniae Ciprofloxacin SRIAKNTH <=0.06 ug/ml: Susceptible Klebsiella pneumoniae ssp pneumoniae Levofloxacin SRIKANTH <=0.12 ug/ml: Susceptible Klebsiella pneumoniae ssp pneumoniae Nitrofurantoin SRIKANTH 128 ug/ml: Resistant Klebsiella pneumoniae ssp pneumoniae Trimethoprim/Sulfamethoxazo le SRIKANTH <=20 ug/ml: Susceptible us Jessica Allen MD LAB MICROBIOLOGY - GENERAL ORDER JOAN Final Result [facility] [address] [place] [address], [place] [phone] from Last 3 Months Insurance MEDICARE MEDICAID - [place] Care Teams Truck Bracer Relationship Specialty Start Date End Date Jessica Allen MD [address] [place] [address] [address] [place] [address] PCP - General Geriatric Medicine 01/03/25
--- OUTSIDE RECORDS SUMMARY | 2025-04-20 14:42 | XMS_ITS | Encounter Summary ---
Author Organization [employer] Address [address] [place] [address] Care Team Providers Care Pastry Baker Name Role Phone Jessica Allen MD Primary Care Provider [phone] Encounter Details Date Type Department Care Team (Late st Contact Info) Description 03/03/2025 Lab Requisition [facility] - Main Lab 299 [facility] [place] [address] Jessica Allen MD [address] [place] [address] Unspecified systolic (congestive) heart failure (CMS/HCC V24, [...] LAB CHEMISTRY METHOD 03/03/2025 8:57 AM EDT [facility] Blood Venous blood specimen / Unknown Venipuncture / Unknown 03/03/2025 7:24 AM EDT 03/03/2025 8:20 AM EDT us Jessica Allen MD LAB BLOOD ORDERABLES Final Resul t [facility] [address] [place] [address], * (ABNORMAL) Comprehensive metabolic panel (03/03/2025 7:24 AM EDT) Sodium 134 133 - 145 mmol/L LAB CHEMISTRY METHOD 03/03/2025 9:46 AM EDT [facility] Potassium 4.9 3.5 - 5.5 mmol/L LAB CHEMISTRY METHOD 03/03/2025 9:46 AM EDT [facility] Chloride 103 96 - 110 mmol/L LAB [facility] CO2 25 21 - 32 mmol/L LAB CHEMISTRY METHOD 03/03/2025 9:46 AM [facility] Anion Gap 6 3 - 11 LAB CHEMISTRY METHOD 03/03/2025 9:46 AM [facility] Glucose 84 70 - 100 mg/dL LAB CHEMISTRY METHOD 03/03/2025 9:46 AM [facility] BUN 33(H) 5 - 25 mg/dL LAB CHEMISTRY METHOD 03/03/2025 9:46 AM [facility] Creatinine 2.48(H) 0.50 - 1.10 mg/dL LAB CHEMISTRY METHOD 03/03/2025 9:46 AM [facility] eGFR 18(L) >=60 mL/min/1. 73m2 LAB CHEMISTRY METHOD 03/03/2025 9:46 AM [facility] Comment:Calculation based on the Chronic Kidney Disease Epidemiology Collaboration (CKD-EPI) equation refit without adjustment for race. BUN/Creatinine Ratio 13.3 LAB CHEMISTRY METHOD 03/03/2025 9:46 AM [facility] Calcium 9.3 8.5 - 10.5 mg/dL LAB CHEMISTRY METHOD 03/03/2025 9:46 AM [facility] AST (SGOT) 45(H) 10 - 42 unit/L LAB CHEMISTRY METHOD 03/03/2025 9:46 AM [facility] ALT (SGPT) 32 10 - 60 unit/L LAB CHEMISTRY METHOD 03/03/2025 9:46 AM [facility] Alkaline Phosphatase 111 42 - 121 unit/L LAB CHEMISTRY METHOD 03/03/2025 9:46 AM [facility] Total Protein 6.3 6.0 - 8.0 g/dL LAB CHEMISTRY METHOD 03/03/2025 9:46 AM [facility] Albumin 2.9(L) 3.2 - 5.0 g/dL LAB CHEMISTRY METHOD 03/03/2025 9:46 AM EDT [facility] Total Bilirubin 1.0 0.0 - 1.4 mg/dL LAB CHEMISTRY METHOD 03/03/2025 9:46 AM T [facility] Blood Venous blood specimen / Unknown Venipuncture / Unknown 03/03/2025 7:24 AM EDT 03/03/2025 8:20 AM EDT us Jessica Allen MD LAB BLOOD ORDERABLES Final Resul t [facility] [address] [place] [address], * (ABNORMAL) Complete blood count (03/03/2025 7:24 AM EDT) WBC 9.5 4.8 - 10.8 K/mcL LAB HEMETOLOGY METHOD 03/03/2025 9:19 AM [facility] RBC 3.30(L) 3.80 - 4.80 M/mcL LAB HEMETOLOGY METHOD 03/03/2025 9:19 AM [facility] Hemoglobin 7.2(L) 11.5 - 16.0 g/dL LAB HEMETOLOGY METHOD 03/03/2025 9:19 AM [facility] Hematocrit 27.5(L) 35.0 - 47.0 % LAB HEMETOLOGY METHOD 03/03/2025 9:19 AM [facility] MCV 82.6 79.0 - 98.0 FL LAB HEMETOLOGY METHOD 03/03/2025 9:19 AM [facility] MCH 21.6(L) 27.0 - 32.0 pcg LAB HEMETOLOGY METHOD 03/03/2025 9:19 AM [facility] MCHC 26.2(L) 32.0 - 37.0 g/dL LAB HEMETOLOGY METHOD 03/03/2025 9:19 AM EDT [facility] RDW 19.8(H) 11.0 - 15.0 % LAB HEMETOLOGY METHOD 03/03/2025 9:19 AM EDT [facility] Platelets 190 130 - 400 K/mcL LAB HEMETOLOGY METHOD 03/03/2025 9:19 AM EDT [facility] MPV 10.4 7.0 - 11.0 FL LAB HEMETOLOGY METHOD 03/03/2025 9:19 AM EDT [facility] NRBC 0.5 <1.0 % LAB HEMETOLOGY METHOD 03/03/2025 9:19 AM EDT [facility] NRBC Absolute 0.05 <0.10 K/mcL [facility] 03/03/2025 9:19 AM EDT [facility] Blood Venous blood specimen / Unknown Venipuncture / Unknown 03/03/2025 7:24 AM EDT 03/03/2025 8:20 AM EDT Jessica Allen MD LAB BLOOD ORDERABLES Final Resul t [facility] [address] [place] [address], documented in this encounter Visit Diagnoses Diagnosis Unspecified systolic (congestive) heart failure (CMS/HCC V24, CMS/HCC V28) Unspecified atrial fibrillation (CMS/HCC V24, CMS/HCC V28) Essential (primary) hypertension Unspecified essential hypertension Chronic obstructive pulmonary disease, unspecified (CMS/HCC V24, CMS/HCC V28) Chronic kidney disease, unspecified Hypokalemia Hypopotassemia documented in this encounter Care Teams Pastry Baker Relationship Specialty Start Date End Date Jessica Allen MD [address] [place] [address] [address] [place] [address] PCP - General Geriatric Medicine 5/18/25 documented as of this encounter
--- OUTSIDE RECORDS SUMMARY | 2025-04-20 14:42 | XMS_ITS | Encounter Summary ---
Author Organization [facility]al [facility] Address [address] [place] [address] Care Team Providers Care Ticket Agent Name Role Phone Jessica Allen MD Primary Care Provider [phone] Encounter Details Date Type Department Care Team (Late st Contact Info) Description 01/15/2025 Lab Requisition [facility] 299 [facility] [place] [address] Jessica Allen MD [address] [place] [address] Elevated white blood cell count, unspecified; Influenza due to other identified influenza virus with other respiratory manifestations Social History Tobacco Use Types Packs/Day Years [...] Associated Diagnosis Comments COMPLETE BLOOD COUNT Routine 01/15/2025 6:31 AM EDT Elevated white blood cell count, unspecified Influenza due to other identified influenza virus with other respiratory manifestations BASIC METABOLIC PANEL Routine 01/15/2025 6:31 AM EDT Elevated white blood cell count, unspecified Influenza due to other identified influenza virus with other respiratory manifestations documented in this encounter Results * (ABNORMAL) Basic metabolic panel (01/15/2025 6:31 AM EDT) Sodium 136 133 - 145 mmol/L LAB CHEMISTRY METHOD 01/15/2025 10:40 AM EDT [facility] Potassium 4.8 3.5 - 5.5 mmol/L LAB CHEMISTRY METHOD 01/15/2025 10:40 AM [facility] Chloride 107 96 - 110 mmol/L LAB CHEMISTRY METHOD 01/15/2025 10:40 AM [facility] CO2 21 21 - 32 mmol/L LAB CHEMISTRY METHOD 01/15/2025 10:40 AM [facility] Anion Gap 8 3 - 11 LAB CHEMISTRY METHOD 01/15/2025 10:40 AM [facility] Glucose 91 70 - 100 mg/dL LAB CHEMISTRY METHOD 01/15/2025 10:40 AM [facility] BUN 57(H) 5 - 25 mg/dL LAB CHEMISTRY METHOD 01/15/2025 10:40 AM [facility] Creatinine 3.04(H) 0.50 - 1.10 mg/dL LAB CHEMISTRY METHOD 01/15/2025 10:40 AM [facility] eGFR 14(L) >=60 mL/min/1. 73m2 LAB CHEMISTRY METHOD 01/15/2025 10:40 AM [facility] Comment:Calculation based on the Chronic Kidney Disease Epidemiology Collaboration (CKD-EPI) equation refit without adjustment for race. BUN/Creatinine Ratio 18.8 LAB CHEMISTRY METHOD 01/15/2025 10:40 AM [facility] Calcium 8.9 8.5 - 10.5 mg/dL LAB CHEMISTRY METHOD 01/15/2025 10:40 AM [facility] Blood Venous blood specimen / Unknown Venipuncture / Unknown 01/15/2025 6:31 AM EDT 01/15/2025 9:17 AM EDT us Jessica Allen MD LAB BLOOD ORDERABLES Final Resul t [facility] [address] [place] [address], * (ABNORMAL) Complete blood count (01/15/2025 6:31 AM EDT) [facility] WBC 9.8 4.8 - 10.8 K/mcL LAB HEMETOLOGY METHOD 01/15/2025 9:58 AM [facility] RBC 2.30(L) 3.80 - 4.80 M/mcL LAB HEMETOLOGY METHOD 01/15/2025 9:58 AM [facility] Hemoglobin 4.8(LL) 11.5 - 16.0 g/dL LAB HEMETOLOGY METHOD 01/15/2025 9:58 AM [facility] Hematocrit 18.4(LL) 35.0 - 47.0 % LAB HEMETOLOGY METHOD 01/15/2025 9:58 AM [facility] MCV 80.0 79.0 - 98.0 FL LAB HEMETOLOGY METHOD 01/15/2025 9:58 AM [facility] MCH 20.4(L) 27.0 - 32.0 pcg LAB HEMETOLOGY METHOD 01/15/2025 9:58 AM [facility] MCHC 25.5(L) 32.0 - 37.0 g/dL LAB HEMETOLOGY METHOD 01/15/2025 9:58 AM [facility] RDW 22.1(H) 11.0 - 15.0 % LAB HEMETOLOGY METHOD 01/15/2025 9:58 AM [facility] Platelets 411(H) 130 - 400 K/mcL LAB HEMETOLOGY METHOD 01/15/2025 9:58 AM [facility] MPV 11.2(H) 7.0 - 11.0 FL LAB HEMETOLOGY METHOD 01/15/2025 9:58 AM [facility] NRBC 3.8(H) <1.0 % LAB HEMETOLOGY METHOD 01/15/2025 9:58 AM EDT [facility] NRBC Absolute 0.37(H) <0.10 K/mcL LAB HEMETOLOGY METHOD 01/15/2025 9:58 AM EDT [facility] Blood Venous blood specimen / Unknown Venipuncture / Unknown 01/15/2025 6:31 AM EDT 01/15/2025 9:17 AM EDT Jessica Allen MD LAB BLOOD ORDERABLES Final Resul t [facility] [address] [place] [address], documented in this encounter Visit Diagnoses Diagnosis Elevated white blood cell count, unspecified Influenza due to other identified influenza virus with other respiratory manifestations documented in this encounter Care Teams Ticket Agent Relationship Specialty Start Date End Date Jessica Allen MD [address] [place] [address] [address] [place] [address] PCP - General Geriatric Medicine 01/03/25 documented as of this encounter
--- OUTSIDE RECORDS SUMMARY | 2025-04-20 14:42 | XMS_ITS | Encounter Summary ---
Author Organization [employer] [facility] Address [address] [place] [address] Care Team Providers Care Dye Machine Tender Name Role Phone Jessica Allen MD Primary Care Provider [phone] Encounter Details Date Type Department Care Team (Late st Contact Info) Description 02/13/2025 Lab Requisition [facility] - Main Lab 299 [facility] [place] [address] Jessica Allen MD [address] [place] [address] Urinary tract infection, site not specified; Dysuria; Frequency of micturition Social History Tobacco Use Types Packs/Day Years [...] Procedure Name Priority Date/Time Associated Diagnosis Comments URINALYSIS WITH REFLEX MICROSCOPIC Routine 02/12/2025 12:00 AM EDT Urinary tract infection, site not specified Dysuria Frequency of micturition URINALYSIS WITH REFLEX MICROSCOPIC Routine 02/12/2025 12:00 AM EDT Urinary tract infection, site not specified Dysuria Frequency of micturition CULTURE URINE Routine 02/12/2025 12:00 AM EDT Urinary tract infection, site not specified Dysuria Frequency of micturition documented in this encounter Results * (ABNORMAL) Urinalysis with reflex microscopic (02/12/2025 12:00 AM EDT) Specific [place] Urine 1.015 1.003 - 1.030 LAB URINALYSIS - AUTOMATED METHOD 02/13/2025 1:19 PM [facility] pH, Urine 5.5 5.0 - 8.0 pH LAB URINALYSIS - AUTOMATED METHOD 02/13/2025 1:19 PM [facility] Leukocytes, Urine Large(A) Negative LAB URINALYSIS - AUTOMATED METHOD 02/13/2025 1:19 PM [facility] Nitrite, Urine Negative Negative LAB URINALYSIS - AUTOMATED METHOD 02/13/2025 1:19 PM [facility] Protein, Urine 300(A) <=Trace mg/dL LAB URINALYSIS - AUTOMATED METHOD 02/13/2025 1:19 PM [facility] Glucose, Urine Negative Negative mg/dL LAB URINALYSIS - AUTOMATED METHOD 02/13/2025 1:19 PM [facility] Ketones, Urine Negative Negative mg/dL LAB URINALYSIS - AUTOMATED METHOD 02/13/2025 1:19 PM [facility] Urobilinogen, Urine 0.2 0.2 - 1.0 mg/dL LAB URINALYSIS - AUTOMATED METHOD 02/13/2025 1:19 PM [facility] Bilirubin, Urine Negative Negative LAB URINALYSIS - AUTOMATED METHOD 02/13/2025 1:19 PM [facility] Blood, Urine Trace(A) Negative LAB URINALYSIS - AUTOMATED METHOD 02/13/2025 1:19 PM [facility] RBC, Urine 1.9 0 - 4 /HPF LAB URINALYSIS - AUTOMATED METHOD 02/13/2025 1:19 PM [facility] WBC, Urine 323.9(H) 0 - 4 /HPF LAB URINALYSIS - AUTOMATED METHOD 02/13/2025 1:19 PM [facility] Squamous Epithelial, Urine 1 0 - 60 /LPF LAB URINALYSIS - AUTOMATED METHOD 02/13/2025 1:19 PM EDT [facility] Bacteria, Urine Many(A) Negative /HPF LAB URINALYSIS - AUTOMATED METHOD 02/13/2025 1:19 PM EDT [facility] Hyaline Casts, Urine 0.0 0 - 3 /LPF LAB URINALYSIS - AUTOMATED METHOD 02/13/2025 1:19 PM EDT [facility] Urine Urine specimen from urethra / Unknown 02/12/2025 02/13/2025 12:33 PM EDT Jessica Allen MD LAB URINE ORDERABLES Final Resul t Performing Organization Address [facility]/ZIP Co de Phone Number [facility] [address] [place] [address], [place] [phone] * (ABNORMAL) Culture urine (02/12/2025 12:00 AM EDT) Culture, Urine >100,000 CFU/mL Enterococcus faecalis(A) SRIKANTH 02/16/2025 9:39 AM EDT [facility] Comment: The organism value for this result has been updated. These results have been appended to the previously preliminary verified report. Edited result: Previously reported as Enterococcus species on 02/15/2025 at 1322 EDT. Urine Urine specimen from urethra / Unknown 02/12/2025 02/13/2025 12:33 PM EDT Narrative Organism Antibiotic Method Susceptibility Enterococcus faecalis Benzylpenicillin SRIKANTH 2 ug/ml: Susceptible Enterococcus faecalis Ampicillin SRIKANTH <=2 ug/ml: Susceptible Enterococcus faecalis Ciprofloxacin SRIKANTH >=8 ug/ml: Resistant Enterococcus faecalis Levofloxacin SRIKANTH >=8 ug/ml: Resistant Enterococcus faecalis Linezolid SRIKANTH 2 ug/ml: Susceptible Enterococcus faecalis Vancomycin SRIKANTH 1 ug/ml: Susceptible Enterococcus faecalis Tetracycline SRIKANTH >=16 ug/ml: Resistant Enterococcus faecalis Nitrofurantoin SRIKANTH <=16 ug/ml: Susceptible us Jessica Allen MD LAB MICROBIOLOGY - GENERAL ORDER JOAN Final Result [facility] [place] [facility] [address] [place] [address], documented in this encounter Visit Diagnoses Diagnosis Urinary tract infection, site not specified Dysuria Frequency of micturition Urinary frequency documented in this encounter Care Teams Dye Machine Tender Relationship Specialty Start Date End Date Jsesica Allen MD [address] [place] [address] [address] [place] [address] PCP - General Geriatric Medicine 01/03/25 documented as of this encounter
--- OUTSIDE RECORDS SUMMARY | 2025-04-20 14:42 | XMS_ITS | Encounter Summary ---
Author Organization [facility]al [facility] Address [address] [place] [address] Care Team Providers Care Panel Coverer Name Role Phone Jessica Allen MD Primary Care Provider [phone] Encounter Details Date Type Department Care Team (Late st Contact Info) Description 03/23/2025 Lab Requisition [facility] Lab 299 [facility] [place] [address] Jessica Allen MD [address] [place] [address] Anemia, unspecified; Hypokalemia Social History Tobacco Use Types [...] Associated Diagnosis Comments COMPLETE BLOOD COUNT Routine 03/23/2025 5:02 AM EDT Anemia, unspecified Hypokalemia BASIC METABOLIC PANEL Routine 03/23/2025 5:02 AM EDT Anemia, unspecified Hypokalemia documented in this encounter Results * (ABNORMAL) Basic metabolic panel (03/23/2025 5:02 AM EDT) Sodium 136 133 - 145 mmol/L LAB CHEMISTRY METHOD 03/23/2025 11:38 AM EDT [facility] Potassium 4.1 3.5 - 5.5 mmol/L LAB CHEMISTRY METHOD 03/23/2025 11:38 AM EDT [facility] Chloride 99 96 - 110 mmol/L LAB CHEMISTRY METHOD 03/23/2025 11:38 AM [facility] CO2 30 21 - 32 mmol/L LAB CHEMISTRY METHOD 03/23/2025 11:38 AM [facility] Anion Gap 7 3 - 11 LAB CHEMISTRY METHOD 03/23/2025 11:38 AM [facility] Glucose 67(L) 70 - 100 mg/dL LAB CHEMISTRY METHOD 03/23/2025 11:38 AM [facility] BUN 20 5 - 25 mg/dL LAB CHEMISTRY METHOD 03/23/2025 11:38 AM [facility] Creatinine 1.81(H) 0.50 - 1.10 mg/dL LAB CHEMISTRY METHOD 03/23/2025 11:38 AM [facility] eGFR 26(L) >=60 mL/min/1. 73m2 LAB CHEMISTRY METHOD 03/23/2025 11:38 AM [facility] Comment:Calculation based on the Chronic Kidney Disease Epidemiology Collaboration (CKD-EPI) equation refit without adjustment for race. BUN/Creatinine Ratio 11.0 LAB CHEMISTRY METHOD 03/23/2025 11:38 AM [facility] Calcium 9.1 8.5 - 10.5 mg/dL LAB CHEMISTRY METHOD 03/23/2025 11:38 AM [facility] Blood Venous blood specimen / Unknown Venipuncture / Unknown 03/23/2025 5:02 AM EDT 03/23/2025 10:17 AM EDT us Jessica Allen MD LAB BLOOD ORDERABLES Final Resul t [facility] [address] [place] [address], * (ABNORMAL) Complete blood count (03/23/2025 5:02 AM EDT) WBC 9.1 4.8 - 10.8 K/mcL LAB HEMETOLOGY METHOD 03/23/2025 10:50 AM [facility] RBC 3.20(L) 3.80 - 4.80 M/mcL LAB HEMETOLOGY METHOD 03/23/2025 10:50 AM [facility] Hemoglobin 6.3(LL) 11.5 - 16.0 g/dL LAB HEMETOLOGY METHOD 03/23/2025 10:50 AM [facility] Hematocrit 25.7(L) 35.0 - 47.0 % LAB HEMETOLOGY METHOD 03/23/2025 10:50 AM [facility] MCV 80.5 79.0 - 98.0 FL LAB HEMETOLOGY METHOD 03/23/2025 10:50 AM [facility] MCH 19.8(L) 27.0 - 32.0 pcg LAB HEMETOLOGY METHOD 03/23/2025 10:50 AM [facility] MCHC 24.6(L) 32.0 - 37.0 g/dL LAB HEMETOLOGY METHOD 03/23/2025 10:50 AM [facility] RDW 19.7(H) 11.0 - 15.0 % LAB HEMETOLOGY METHOD 03/23/2025 10:50 AM [facility] Platelets 247 130 - 400 K/mcL LAB HEMETOLOGY METHOD 03/23/2025 10:50 AM [facility] MPV 10.3 7.0 - 11.0 FL LAB HEMETOLOGY METHOD 03/23/2025 10:50 AM [facility] NRBC 0.4 <1.0 % LAB HEMETOLOGY METHOD 03/23/2025 10:50 AM [facility] NRBC Absolute 0.04 <0.10 K/mcL LAB HEMETOLOGY METHOD 03/23/2025 10:50 AM EDT [facility] Blood Venous blood specimen / Unknown Venipuncture / Unknown 03/23/2025 5:02 AM EDT 03/23/2025 10:17 AM EDT Jessica Allen MD LAB BLOOD ORDERABLES Final Resul t [facility] [address] [place] [address], documented in this encounter Visit Diagnoses Diagnosis Anemia, unspecified Hypokalemia Hypopotassemia documented in this encounter Care Teams Panel Coverer Relationship Specialty Start Date End Date Jessica Allen MD [address] [place] [address] [address] [place] [address] PCP - General Geriatric Medicine 01/03/25 documented as of this encounter
--- OUTSIDE RECORDS SUMMARY | 2025-04-20 14:42 | XMS_ITS | Encounter Summary ---
Author Organization Cristal [facility] Address [address] [place] [address] Care Team Providers Care Tapping Machine Operator Automatic Name Role Phone Jessica Allen MD Primary Care Provider [phone] Encounter Details Date Type Department Care Team (Late st Contact Info) Description 01/03/2025 Lab Requisition [facility] Lab 299 [facility] [place] [address] Jessica Allen MD [address] [place] [address] Essential (primary) hypertension; Anemia, unspecified Social History Tobacco Use Types Packs/Day Years [...] Associated Diagnosis Comments COMPLETE BLOOD COUNT Routine 01/03/2025 5:22 AM EDT Essential (primary) hypertension Anemia, unspecified BASIC METABOLIC PANEL Routine 01/03/2025 5:22 AM EDT Essential (primary) hypertension Anemia, unspecified documented in this encounter Results * (ABNORMAL) Basic metabolic panel (01/03/2025 5:22 AM EDT) Sodium 142 133 - 145 mmol/L LAB CHEMISTRY METHOD 01/03/2025 10:06 AM T [facility] Potassium 3.5 3.5 - 5.5 mmol/L LAB CHEMISTRY METHOD 01/03/2025 10:06 AM EDT [facility] Chloride 105 96 - 110 mmol/L LAB CHEMISTRY METHOD 01/03/2025 10:06 AM [facility] CO2 32 21 - 32 mmol/L LAB CHEMISTRY METHOD 01/03/2025 10:06 AM [facility] Anion Gap 5 3 - 11 LAB CHEMISTRY METHOD 01/03/2025 10:06 AM [facility] Glucose 77 70 - 100 mg/dL LAB CHEMISTRY METHOD 01/03/2025 10:06 AM [facility] BUN 36(H) 5 - 25 mg/dL LAB CHEMISTRY METHOD 01/03/2025 10:06 AM [facility] Creatinine 1.10 0.50 - 1.10 mg/dL LAB CHEMISTRY METHOD 01/03/2025 10:06 AM [facility] eGFR 48(L) >=60 mL/min/1. 73m2 LAB CHEMISTRY METHOD 01/03/2025 10:06 AM [facility] Comment:Calculation based on the Chronic Kidney Disease Epidemiology Collaboration (CKD-EPI) equation refit without adjustment for race. BUN/Creatinine Ratio 32.7 LAB CHEMISTRY METHOD 01/03/2025 10:06 AM [facility] Calcium 8.9 8.5 - 10.5 mg/dL LAB CHEMISTRY METHOD 01/03/2025 10:06 AM [facility] Blood Venous blood specimen / Unknown Venipuncture / Unknown 01/03/2025 5:22 AM EDT 01/03/2025 9:17 AM EDT us Jessica Allen MD LAB BLOOD ORDERABLES Final Resul t [facility] [address] [place] [address], * (ABNORMAL) Complete blood count (01/03/2025 5:22 AM EDT) WBC 11.6(H) 4.8 - 10.8 K/mcL LAB HEMETOLOGY METHOD 01/03/2025 10:10 AM [facility] RBC 3.60(L) 3.80 - 4.80 M/mcL LAB HEMETOLOGY METHOD 01/03/2025 10:10 AM [facility] Hemoglobin 7.9(L) 11.5 - 16.0 g/dL LAB HEMETOLOGY METHOD 01/03/2025 10:10 AM [facility] Hematocrit 30.0(L) 35.0 - 47.0 % LAB HEMETOLOGY METHOD 01/03/2025 10:10 AM [facility] MCV 83.3 79.0 - 98.0 FL LAB HEMETOLOGY METHOD 01/03/2025 10:10 AM [facility] MCH 21.9(L) 27.0 - 32.0 pcg LAB HEMETOLOGY METHOD 01/03/2025 10:10 AM [facility] MCHC 26.3(L) 32.0 - 37.0 g/dL LAB HEMETOLOGY METHOD 01/03/2025 10:10 AM [facility] RDW 20.9(H) 11.0 - 15.0 % LAB HEMETOLOGY METHOD 01/03/2025 10:10 AM [facility] Platelets 262 130 - 400 K/mcL LAB HEMETOLOGY METHOD 01/03/2025 10:10 AM [facility] MPV 10.9 7.0 - 11.0 FL LAB HEMETOLOGY METHOD 01/03/2025 10:10 AM [facility] NRBC 0.0 <1.0 % LAB HEMETOLOGY METHOD 01/03/2025 10:10 AM [facility] NRBC Absolute 0.00 <0.10 K/mcL LAB HEMETOLOGY METHOD 01/03/2025 10:10 AM EDT [facility] Blood Venous blood specimen / Unknown Venipuncture / Unknown 01/03/2025 5:22 AM EDT 01/03/2025 9:17 AM EDT Jessica Allen MD LAB BLOOD ORDERABLES Final Resul t [facility] [address] [place] [address], documented in this encounter Visit Diagnoses Diagnosis Essential (primary) hypertension Unspecified essential hypertension Anemia, unspecified documented in this encounter Care Teams Tapping Machine Operator Automatic Relationship Specialty Start Date End Date Jessica Allen MD [address] [place] [address] [address] [place] [address] PCP - General Geriatric Medicine 01/03/25 documented as of this encounter
--- OUTSIDE RECORDS SUMMARY | 2025-04-20 14:42 | XMS_ITS | Clinical Summary ---
Author Organization [facility] Address [address] [place] [address] Phone Care Team Providers Care Personal Security Specialist Name Role Phone Irving Meneses MD Primary Care Provider [phone] Allergies No known active allergies Medications rosuvastatin [...] has been confused ever since presentation to [facility] 09/09. Healthcare proxy invoked. Dementia/delirium protocol in place. Assessment & Plan (09/17/2024 6:40 PM EST): Patient's daughter states that she has been confused ever since presentation to [facility] 09/09. Healthcare proxy invoked. Dementia/delirium protocol in place. Assessment & Plan (09/16/2024 6:39 PM EST): Patient's daughter states that she has been confused ever since presentation to [facility] 09/09. Healthcare proxy invoked. Dementia/delirium protocol in place. Assessment & Plan (09/15/2024 4:37 AM EST): Patient's daughter states that she has been confused ever since presentation to [facility] 09/09. Healthcare proxy invoked. Dementia/delirium protocol in place. Acute kidney injury 09/15/2024 Assessment & Plan (09/18/2024 6:19 PM EST): Unknown baseline. Recent admission to [facility] where she had NEEL and creatinine [...] PM EST): Unknown baseline. Recent admission to [facility] where she had NEEL and creatinine peaked at 2.1. Creatinine down trended, but is now elevated again at 2.5 on admission. -Treated with IV fluids and creatinine down to 2.3 - 09/17 off IVF still holding diuretic -Avoid nephrotoxic medications. . Assessment & Plan (09/16/2024 6:39 PM EST): Unknown baseline. Recent admission to [facility] where she had NEEL and creatinine peaked at 2.1. Creatinine down trended, but is now elevated again at 2.5 on admission. -Treated with IV fluids and creatinine down to 2.4 -Avoid nephrotoxic medications. . Assessment & Plan (09/15/2024 4:37 AM EST): Unknown baseline. Recent admission to [facility] where she had NEEL and creatinine [...] systolic function on most recent echocardiogram at [facility]. Will avoid diltiazem if possible due to the decreased ejection fraction. Patient was not on anticoagulation prior to admission Patient had rapid ventricular response related to acute sepsis and hypotension. Volume resuscitated and now rates are well-controlled. - Continue home regimen of metoprolol. Assessment & Plan (09/17/2024 6:40 PM EST): Impaired systolic function on most recent echocardiogram at [facility]. Will avoid diltiazem if possible due to the decreased ejection fraction. Patient was not on anticoagulation prior to admission Patient had rapid ventricular response related to acute sepsis and hypotension. Volume resuscitated and now rates are well-controlled. - Continue home regimen of metoprolol. Assessment & Plan (09/16/2024 6:39 PM EST): Impaired systolic function on most recent echocardiogram at [facility]. Will avoid diltiazem if possible due to the decreased ejection fraction. Patient was not on anticoagulation prior to admission Patient had rapid ventricular response related to acute sepsis and hypotension. Volume resuscitated and now rates are well-controlled. - Continue home regimen of metoprolol. Assessment & Plan (09/15/2024 4:37 AM EST): Impaired systolic function on most recent echocardiogram at [facility]. Will avoid diltiazem if possible due to the decreased ejection fraction. She is asymptomatic. I will continue with her outpatient dosing of metoprolol. We will follow heart rate as we give gentle IV fluids. Acute respiratory failure with hypoxia Assessment & Plan (09/18/2024 6:19 PM EST): Prior to her [facility] admission she was on room air. At discharge from [facility] 09/09 she was on 2 L/min. She is now requiring additional supplemental oxygen up to 3 L. Likely secondary to influenza A. -O2 supplementation to keep sats 92 to 96% Assessment & Plan (09/17/2024 6:40 PM EST): Prior to her [facility] admission she was on room air. At discharge from [facility] 09/09 she was on 2 L/min. She is now requiring additional supplemental oxygen up to 3 L. Likely secondary to influenza A. -O2 supplementation to keep sats 92 to 96% Assessment & Plan (09/16/2024 6:39 PM EST): Prior to her [facility] admission she was on room air. At discharge from [facility] 09/09 she was on 2 L/min. She is now requiring additional supplemental oxygen up to 3 L. Likely secondary to influenza A. -O2 supplementation to keep sats 92 to 96% Assessment & Plan (09/15/2024 4:37 AM EST): Prior to her [facility] admission she was on room air. At discharge from [facility] 09/09 she was on 2 L/min. She [...] Moderate to severe on TTE 08/2024 at [facility] Social History Tobacco Use Types Packs/Day Years [...] series) 2010 COVID-19 VACCINE (2023- season) 2024 INFLUENZA VACCINE (#1) 2025 POTASSIUM LEVEL 11/02/2025 11/02/2024, 10/17, 10/26/2024, Additional [...] EDT) SODIUM 137 133 - 146 mmol/L [facility] POTASSIUM 4.4 3.3 - 5.1 mmol/L [facility] CHLORIDE 101 96 - 108 mmol/L [facility] CO2 23 21 - 35 mmol/L [facility] BUN 31(H) 6 - 19 mg/dL [facility] CREATININE 1.50 0.5 - 1.5 mg/dL [facility] GLUCOSE 103(H) 70 - 99 mg/dL [facility] ALBUMIN 3.2(L) 3.9 - 4.8 g/dL [facility] TOTAL PROTEIN 6.4(L) 6.5 - 8.0 g/dL [facility] CALCIUM 9.5 8.4 - 10.3 mg/dL [facility] ALKALINE PHOSPHATASE 69 39 - 117 U/L [facility] TOTAL BILIRUBIN 0.3 0.0 - 1.2 mg/dL [facility] AST 9 0 - 37 U/L [facility] ALT <5 0 - 40 U/L [facility] GLOBULIN 3.2 1 - 4.8 g/dL [facility] EGFR 33(L) >59 mL/min/1.7 3m2 [facility] Comment:Estimated glomerular filtration rate calculated using the CKD-EPI refit equation. ANION GAP 17 10 - 20 mmol/L [facility] 11/02/2024 6:50 AM EDT 11/02/2024 9:07 AM EDT us Pedro Luis Lackey MD LAB BLOOD ORDERABLES Final Resul t [facility] [address] [place] [address] from Last 3 Months or Most Recently Relevant to Health Maintenance Insurance MEDICARE PART A & B [facility] MEDICARE PART A & B [place] [facility]ARE PART A & B [facility] [place] A & B Member Subscriber Plan / Payer (Ef fective 2000-) Name:Jaki Kulkarni Member ID:[id number] Relation to Subscriber:Self Name:Jaki Kulkarni Subscriber ID:[id number] Payer ID:[id number] Group ID:Not on file Type:Medicare [facility] [address] [place] [address] [place], [place] [address]HEALTH MEDICARE PART A & B Member Subscriber Plan / Payer (Ef fective 2000-Present) Name:Jaki Kulkarni Member ID:[id number] Relation to Subscriber:Self Name:Jaki Kulkarni Subscriber ID:[id number] Payer ID:[id number] Group ID:Not on file Type:Medicare Address: [facility] [address] [place] [address] [facility] Advance Directives For more information, please contact: [phone] (9AM - 5PM [facility], Saturday-Saturday) Documents on File Type Date Recorded Patient Spool Cleaner Expl anation Healthcare Proxy 09/24/2024 2:53 PM MOLST 09/24/2024 2:53 PM MOLST 09/17/2024 10:26 AM MOLST Healthcare Proxy 09/17/2024 10:24 AM Healt hcare Proxy * Full Code (Latest Code Status on File) Date Activated Date Inactivated Comments 09/15/2024 4:37 AM Question Answer Comments Code Status Confirmed With: Other (specify below ) Code Discussion Comments: Presumed Care Teams Personal Security Specialist Relationship Specialty Start Date End Date Irving Meneses MD [address] [place] [address] [place] [address] PCP - General Internal Medicine 11/02/24 Additional Source Comments The information contained in this document represents components of the legal health record. It is not the complete legal health record.[facility]
--- OUTSIDE RECORDS SUMMARY | 2025-04-20 14:42 | XMS_ITS | Clinical Summary ---
Author Organization [facility] Address [address] [place] [address] Care Team Providers Care Wallpaper Inspector And Shipper Name Role Phone Unavailable Primary Care Provider [...] Maintenance Insurance DENTAL - N FULL (MEDICAID) D[facility]AL-[facility] MEDICAID STAND ADULT
--- OUTSIDE RECORDS SUMMARY | 2025-04-20 14:42 | XMS_ITS | Encounter Summary ---
Author Organization [facility] Address [address] [place] [address] Care Team Providers Care Senior Marketing Specialist Name Role Phone Jessica Allen MD Primary Care Provider [phone] Encounter Details Date Type Department Care Team (Late st Contact Info) Description 03/29/[address] [facility] - Main Lab [address] [facility] [place] [address] Jessica Allen MD [address] [place] [address] Anemia, unspecified; Heart failure, unspecified (CMS/HCC V24, CMS/HCC V28); Gastrointestinal hemorrhage, unspecified Social History Tobacco Use Types Packs/Day [...] Associated Diagnosis Comments COMPLETE BLOOD COUNT Routine 03/29/2025 8:17 AM EDT Anemia, unspecified Heart failure, unspecified (CMS/HCC V24, CMS/HCC V28) Gastrointestinal hemorrhage, unspecified BASIC METABOLIC PANEL Routine 03/29/2025 8:17 AM EDT Anemia, unspecified Heart failure, unspecified (CMS/HCC V24, CMS/HCC V28) Gastrointestinal hemorrhage, unspecified documented in this encounter Results * (ABNORMAL) Basic metabolic panel (03/29/2025 8:17 AM EDT) Sodium 138 133 - 145 mmol/L LAB [facility] Potassium 4.1 3.5 - 5.5 mmol/L LAB CHEMISTRY METHOD 03/29/2025 1:02 PM [facility] Chloride 95(L) 96 - 110 mmol/L LAB CHEMISTRY METHOD 03/29/2025 1:02 PM [facility] CO2 34(H) 21 - 32 mmol/L LAB CHEMISTRY METHOD 03/29/2025 1:02 PM [facility] Anion Gap 9 3 - 11 LAB CHEMISTRY METHOD 03/29/2025 1:02 PM [facility] Glucose 85 70 - 100 mg/dL LAB CHEMISTRY METHOD 03/29/2025 1:02 PM [facility] BUN 20 5 - 25 mg/dL LAB CHEMISTRY METHOD 03/29/2025 1:02 PM [facility] Creatinine 1.24(H) 0.50 - 1.10 mg/dL LAB CHEMISTRY METHOD 03/29/2025 1:02 PM [facility] eGFR 42(L) >=60 mL/min/1. 73m2 LAB CHEMISTRY METHOD 03/29/2025 1:02 PM [facility] Comment:Calculation based on the Chronic Kidney Disease Epidemiology Collaboration (CKD-EPI) equation refit without adjustment for race. BUN/Creatinine Ratio 16.1 LAB CHEMISTRY METHOD 03/29/2025 1:02 PM [facility] Calcium 9.8 8.5 - 10.5 mg/dL LAB CHEMISTRY METHOD 03/29/2025 1:02 PM [facility] Blood Venous blood specimen / Unknown Venipuncture / Unknown 03/29/2025 8:17 AM EDT 03/29/2025 12:07 PM EDT us Jessica Allen MD LAB BLOOD ORDERABLES Final Resul t [facility] [address] [place] [address], * (ABNORMAL) Complete blood count (03/29/2025 8:17 AM EDT) [facility] WBC 14.1(H) 4.8 - 10.8 K/mcL LAB HEMETOLOGY METHOD 03/29/2025 1:[address] [facility] RBC 4.30 3.80 - 4.80 M/mcL LAB HEMETOLOGY METHOD 03/29/2025 [facility] Hemoglobin 10.1(L) 11.5 - 16.0 g/dL LAB HEMETOLOGY METHOD 03/29/2025 1:31 PM [facility] Hematocrit 37.8 35.0 - 47.0 % LAB HEMETOLOGY METHOD 03/29/2025 1:31 PM [facility] MCV 88.3 79.0 - 98.0 FL LAB HEMETOLOGY METHOD 03/29/2025 1:31 [facility] MCH 23.6(L) 27.0 - 32.0 pcg LAB HEMETOLOGY METHOD 03/29/2025 1:31 PM [facility] MCHC 26.7(L) 32.0 - 37.0 g/dL LAB HEMETOLOGY METHOD 03/29/2025 1:31 PM [facility] RDW 25.0(H) 11.0 - 15.0 % LAB HEMETOLOGY METHOD 03/29/2025 1:31 PM [facility] Platelets 262 130 - 400 K/mcL LAB HEMETOLOGY METHOD 03/29/2025 1:31 PM [facility] MPV 10.1 7.0 - 11.0 FL LAB HEMETOLOGY METHOD 03/29/2025 1:31 PM [facility] NRBC 0.0 <1.0 % LAB HEMETOLOGY METHOD 03/29/2025 1:[address] [facility] NRBC Absolute 0.00 <0.10 K/mcL LAB HEMETOLOGY METHOD 03/29/2025 1:[address] [facility] Blood Venous blood specimen / Unknown Venipuncture / Unknown 03/29/2025 8:17 AM EDT 03/29/2025 12:07 PM EDT Jessica Allen MD LAB BLOOD ORDERABLES Final Resul t [facility] [address] [place] [address], documented in this encounter Visit Diagnoses Diagnosis Anemia, unspecified Heart failure, unspecified (CMS/HCC V24, CMS/HCC V28) Heart failure, unspecified Gastrointestinal hemorrhage, unspecified documented in this encounter Care Teams Senior Marketing Specialist Relationship Specialty Start Date End Date Jessica Allen MD [address] [place] [address] [address] [place] [address] PCP - General Geriatric Medicine 01/03/25 documented as of this encounter
--- OUTSIDE RECORDS SUMMARY | 2025-04-20 14:42 | XMS_ITS | Encounter Summary ---
Author Organization [facility] Address [address] [place] [address] Care Team Providers Care Support Team Member Name Role Phone Jessica Allen MD Primary Care Provider [phone] Encounter Details Date Type Department Care Team (Late st Contact Info) Description 01/27/2025 Lab Requisition [facility] [address] [facility] [place] [address] Jessica Allen MD [address] [place] [address] Sepsis, unspecified organism (CMS/HCC V24, CMS/[facility] V28) Social History Tobacco Use Types Packs/Day [...] LAB CHEMISTRY METHOD 01/27/2025 10:30 AM EDT [facility] Potassium 4.0 3.5 - 5.5 mmol/L LAB CHEMISTRY METHOD 01/27/2025 10:30 AM [facility] Chloride 106 96 - 110 mmol/L LAB CHEMISTRY METHOD 01/27/2025 10:30 AM [facility] CO2 25 21 - 32 mmol/L LAB CHEMISTRY METHOD 01/27/2025 10:30 AM [facility] Anion Gap 8 3 - 11 LAB CHEMISTRY METHOD 01/27/2025 10:30 AM [facility] Glucose 87 70 - 100 mg/dL LAB CHEMISTRY METHOD 01/27/2025 10:30 AM [facility] BUN 29(H) 5 - 25 mg/dL LAB CHEMISTRY METHOD 01/27/2025 10:30 AM [facility] Creatinine 1.46(H) 0.50 - 1.10 mg/dL LAB CHEMISTRY METHOD 01/27/2025 10:30 AM [facility] eGFR 34(L) >=60 mL/min/1. 73m2 LAB CHEMISTRY METHOD 01/27/2025 10:30 AM [facility] Comment:Calculation based on the Chronic Kidney Disease Epidemiology Collaboration (CKD-EPI) equation refit without adjustment for race. BUN/Creatinine Ratio 19.9 LAB CHEMISTRY METHOD 01/27/2025 10:30 AM [facility] Calcium 8.7 8.5 - 10.5 mg/dL LAB CHEMISTRY METHOD 01/27/2025 10:30 AM [facility] Blood Venous blood specimen / Unknown Venipuncture / Unknown 01/27/2025 5:11 AM EDT 01/27/2025 8:52 AM EDT us Jessica Allen MD LAB BLOOD ORDERABLES Final Resul t [facility] [address] [place] [address], * (ABNORMAL) Complete blood count (01/27/2025 5:11 AM EDT) [facility] Signature WBC 7.7 4.8 - 10.8 K/mcL LAB HEMETOLOGY METHOD 01/27/2025 10:07 AM [facility] RBC 3.60(L) 3.80 - 4.80 M/mcL LAB HEMETOLOGY METHOD 01/27/2025 10:07 AM [facility] Hemoglobin 8.9(L) 11.5 - 16.0 g/dL LAB HEMETOLOGY METHOD 01/27/2025 10:07 AM [facility] Hematocrit 31.5(L) 35.0 - 47.0 % LAB HEMETOLOGY METHOD 01/27/2025 10:07 AM [facility] MCV 87.5 79.0 - 98.0 FL LAB HEMETOLOGY METHOD 01/27/2025 10:07 AM [facility] MCH 24.7(L) 27.0 - 32.0 pcg LAB HEMETOLOGY METHOD 01/27/2025 10:07 AM [facility] MCHC 28.3(L) 32.0 - 37.0 g/dL LAB HEMETOLOGY METHOD 01/27/2025 10:07 AM [facility] RDW 20.0(H) 11.0 - 15.0 % LAB HEMETOLOGY METHOD 01/27/2025 10:07 AM [facility] Platelets 126(L) 130 - 400 K/mcL LAB HEMETOLOGY METHOD 01/27/2025 10:07 AM [facility] MPV 10.4 7.0 - 11.0 FL LAB HEMETOLOGY METHOD 01/27/2025 10:07 AM [facility] NRBC 0.0 <1.0 % LAB HEMETOLOGY METHOD 01/27/2025 10:07 AM EDT [facility] NRBC Absolute 0.00 <0.10 K/mcL LAB HEMETOLOGY METHOD 01/27/2025 10:07 AM EDT [facility] Blood Venous blood specimen / Unknown Venipuncture / Unknown 01/27/2025 5:11 AM EDT 01/27/2025 8:52 AM EDT us Jessica Allen MD LAB BLOOD ORDERABLES Final Resul t [facility] [address] [place] [address], documented in this encounter Visit Diagnoses Diagnosis Sepsis, unspecified organism (CMS/HCC V24, CMS/HCC V28) documented in this encounter Care Teams Support Team Member Relationship Specialty Start Date End Date Jessica Allen MD [address] [place] [address] [address] [place] [address] PCP - General Geriatric Medicine 01/03/25 documented as of this encounter
--- OUTSIDE RECORDS SUMMARY | 2025-04-20 14:42 | XMS_ITS | Encounter Summary ---
Author Organization [facility] Address [address] [place] [address] Care Team Providers Care Shoemaker Custom Name Role Phone Jessica Allen MD Primary Care Provider [phone] Encounter Details Date Type Department Care Team (Latest Contact Info) Description 04/20/2025 Lab Requisition [facility] - Main Lab [address] [facility] [place] [address] Jessica Allen MD [address] [place] [address] Gastrointestinal hemorrhage, unspecified; Hypokalemia; Chronic kidney disease, stage 3 unspecified (CMS/HCC V24, CMS/HCC V28) Social History Tobacco Use Types Packs/Day Years Used Date Smoking Tobacco: Never Assessed Comments Unknown Sex and Gender Information Value Date Recorded Sex Assigned at Not on file Legal Sex Female 9:02 AM EDT Gender Identity Not on file Sexual Orientation Not on file documented as of this encounter Plan of Treatment Pending Results Name Type Priority Associated Diagnoses Date /Time Basic metabolic panel Lab Routine Gastrointestinal hemorrhage, unspecified Hypokalemia Chronic kidney disease, stage 3 unspecified (CMS/HCC V24, CMS/HCC V28) 04/20/2025 5:31 AM EDT documented as of this encounter Procedures Procedure Name Priority Date/Time Associated Diagnosis Comments COMPLETE BLOOD COUNT Routine 04/20/2025 5:31 AM EDT Gastrointestinal hemorrhage, unspecified Hypokalemia Chronic kidney disease, stage 3 unspecified (CMS/HCC V24, CMS/HCC V28) documented in this encounter Results * (ABNORMAL) Complete blood count (04/20/2025 5:31 AM EDT) WBC 9.2 4.8 - 10.8 K/[facility] LAB HEMETOLOGY METHOD 04/20/2025 1:33 PM [facility] RBC 4.20 3.80 - 4.80 M/mcL LAB HEMETOLOGY METHOD 04/20/2025 1:33 PM [facility] Hemoglobin 10.0(L) 11.5 - 16.0 g/dL LAB HEMETOLOGY METHOD 04/20/2025 1:33 PM [facility] Hematocrit 38.8 35.0 - 47.0 % LAB HEMETOLOGY METHOD 04/20/2025 1:33 PM [facility] MCV 92.4 79.0 - 98.0 FL LAB HEMETOLOGY METHOD 04/20/2025 1:33 PM [facility] MCH 23.8(L) 27.0 - 32.0 pcg LAB HEMETOLOGY METHOD 04/20/2025 1:33 PM [facility] MCHC 25.8(L) 32.0 - 37.0 g/dL LAB HEMETOLOGY METHOD 04/20/2025 1:33 PM [facility] RDW 21.0(H) 11.0 - 15.0 % LAB HEMETOLOGY METHOD 04/20/2025 1:33 PM [facility] Platelets 315 130 - 400 K/mcL LAB HEMETOLOGY METHOD 04/20/2025 1:33 PM [facility] MPV 10.3 7.0 - 11.0 FL LAB HEMETOLOGY METHOD 04/20/2025 1:33 PM [facility] NRBC 0.3 <1.0 % LAB HEMETOLOGY METHOD 04/20/2025 1:33 PM [facility] NRBC Absolute 0.03 <0.10 K/mcL LAB HEMETOLOGY METHOD 04/20/2025 1:33 PM [facility] Blood Venous blood specimen / Unknown Venipuncture / Unknown 04/20/2025 5:31 AM EDT 04/20/2025 12:47 PM EDT Jessica Allen MD LAB BLOOD ORDERABLES Final Resul t [facility] [address] [place] [address], documented in this encounter Visit Diagnoses Diagnosis Gastrointestinal hemorrhage, unspecified Hypokalemia Hypopotassemia Chronic kidney disease, stage 3 unspecified (CMS/HCC V24, CMS/HCC V28) documented in this encounter Care Teams Shoemaker Custom Relationship Specialty Start Date End Date Jessica Allen MD [address] [place] [address] [address] [place] [address] PCP - General Geriatric Medicine 01/03/25 documented as of this encounter
--- OUTSIDE RECORDS SUMMARY | 2025-04-20 14:42 | XMS_ITS | Encounter Summary ---
Author Organization [employer] Address [address] [place] [address] Care Team Providers Care Fast Food Cook Name Role Phone Jessica Allen MD Primary Care Provider [phone] Encounter Details Date Type Department Care Team (Late st Contact Info) Description 04/02/2025 Lab Requisition [facility] - Main Lab [address] [facility] [place] [address] Jessica Allen MD [address] [facility] [address] [place] [address] Heart failure, unspecified (CMS/HCC V24, CMS/HCC V28); Anemia, unspecified Social History Tobacco Use Types Packs/Day Years Used Date Smoking Tobacco: Never Assessed Comments Unknown Sex and Gender Information Value Date Recorded Sex Assigned at Not on file Legal Sex Female 9:02 AM EDT Gender Identity Not on file Sexual Orientation Not on file documented as of this encounter Plan of Treatment Not on file documented as of this encounter Visit Diagnoses Diagnosis Heart failure, unspecified (CMS/HCC V24, CMS/HCC V28) Heart failure, unspecified Anemia, unspecified documented in this encounter Care Teams Fast Food Cook Relationship Specialty Start Date End Date Jessica Allen MD [address] [facility] [address] [place] [address] PCP - General Geriatric Medicine 01/03/25 documented as of this encounter
--- OUTSIDE RECORDS SUMMARY | 2025-04-20 14:42 | XMS_ITS | Encounter Summary ---
Author Organization Cristal [facility] Address [address] [place] [address] Care Team Providers Care Chief Librarian Music Department Name Role Phone Jessica Allen MD Primary Care Provider [phone] Encounter Details Date Type Department Care Team (Late st Contact Info) Description 01/29/[address] [facility] Lab 299 [facility] [place] [address] Jessica Allen MD [address] [place] [address] Sepsis, unspecified organism (CMS/HCC V24, CMS/HCC V28); Peripheral vascular disease, unspecified (CMS/HCC V24) Social History Tobacco Use Types Packs/Day Years [...] Associated Diagnosis Comments BASIC METABOLIC PANEL Routine 02/01/2025 5:49 AM EDT Sepsis, unspecified organism (CMS/HCC V24, CMS/HCC V28) Peripheral vascular disease, unspecified (CMS/HCC V24) documented in this encounter Results * (ABNORMAL) Basic metabolic panel (02/01/2025 5:49 AM EDT) Sodium 137 133 - 145 mmol/L LAB CHEMISTRY METHOD 02/01/2025 1:44 PM EDT [facility] Potassium 4.4 3.5 - 5.5 mmol/L LAB CHEMISTRY METHOD 02/01/2025 1:44 PM EDT [facility] Chloride 104 96 - 110 mmol/L LAB CHEMISTRY METHOD 02/01/2025 1:44 PM EDT [facility] CO2 26 21 - 32 mmol/L LAB CHEMISTRY METHOD 02/01/2025 1:44 PM [facility] Anion Gap 7 3 - 11 LAB CHEMISTRY METHOD 02/01/2025 1:44 PM [facility] Glucose 68(L) 70 - 100 mg/dL LAB CHEMISTRY METHOD 02/01/2025 1:44 PM EDT [facility] BUN 21 5 - 25 mg/dL LAB CHEMISTRY METHOD 02/01/2025 1:44 PM [facility] Creatinine 1.70(H) 0.50 - 1.10 mg/dL LAB CHEMISTRY METHOD 02/01/2025 1:44 PM [facility] eGFR 29(L) >=60 mL/min/1. 73m2 LAB CHEMISTRY METHOD 02/01/2025 1:44 PM T [facility] Comment:Calculation based on the Chronic Kidney Disease Epidemiology Collaboration (CKD-EPI) equation refit without adjustment for race. BUN/Creatinine Ratio 12.4 LAB CHEMISTRY METHOD 02/01/2025 1:44 PM [facility] Calcium 9.3 8.5 - 10.5 mg/dL LAB CHEMISTRY METHOD 02/01/2025 1:44 PM [facility] Blood Venous blood specimen / Unknown Long-term Catheter / Unknown 02/01/2025 5:49 AM EDT 02/01/2025 11:56 AM EDT us Jessica Allen MD LAB BLOOD ORDERABLES Final Resul t [facility] [address] [place] [address], documented in this encounter Visit Diagnoses Diagnosis Sepsis, unspecified organism ([facility] V24, [facility] V28) Peripheral vascular disease, unspecified ([facility] V24) Peripheral vascular disease, unspecified documented in this encounter Care Teams Chief Librarian Music Department Relationship Specialty Start Date End Date Jessica Allen MD [address] [place] [address] [address] [place] [address] PCP - General Geriatric Medicine 01/03/25 documented as of this encounter
--- OUTSIDE RECORDS SUMMARY | 2025-04-20 14:42 | XMS_ITS | Encounter Summary ---
Author Organization Cristal [facility] Address [address] [place] [address] Care Team Providers Care Advertising Copy Writer Name Role Phone Jessica Allen MD Primary Care Provider Encounter Details Date Type Department Care Team (Late st Contact Info) Description 02/13/2025 Lab Requisition [facility] Lab 299 [facility] [place] [address] Jessica Allen MD [address] [place] [address] Essential (primary) hypertension Social History Tobacco Use [...] Associated Diagnosis Comments COMPLETE BLOOD COUNT Routine 02/13/2025 6:41 AM EDT Essential (primary) hypertension BASIC METABOLIC PANEL Routine 02/13/2025 6:41 AM EDT Essential (primary) hypertension documented in this encounter Results * (ABNORMAL) Basic metabolic panel (02/13/2025 6:41 AM EDT) Sodium 136 133 - 145 mmol/L LAB CHEMISTRY METHOD 02/13/2025 1:10 PM [facility] Potassium 4.9 3.5 - 5.5 mmol/L LAB CHEMISTRY METHOD 02/13/2025 1:10 PM T [facility] Chloride 103 96 - 110 mmol/L LAB CHEMISTRY METHOD 02/13/2025 1:10 PM EDT [facility] CO2 25 21 - 32 mmol/L LAB CHEMISTRY METHOD 02/13/2025 1:10 PM EDT [facility] Anion Gap 8 3 - 11 LAB CHEMISTRY METHOD 02/13/2025 1:10 PM EDT [facility] Glucose 76 70 - 100 mg/dL LAB CHEMISTRY METHOD 02/13/2025 1:10 PM EDT [facility] BUN 28(H) 5 - 25 mg/dL LAB CHEMISTRY METHOD 02/13/2025 1:10 PM [facility] Creatinine 1.64(H) 0.50 - 1.10 mg/dL LAB CHEMISTRY METHOD 02/13/2025 1:10 PM [facility] eGFR 30(L) >=60 mL/min/1. 73m2 LAB CHEMISTRY METHOD 02/13/2025 1:10 PM EDT [facility] Comment:Calculation based on the Chronic Kidney Disease Epidemiology Collaboration (CKD-EPI) equation refit without adjustment for race. BUN/Creatinine Ratio 17.1 LAB CHEMISTRY METHOD 02/13/2025 1:10 PM T [facility] Calcium 9.7 8.5 - 10.5 mg/dL LAB CHEMISTRY METHOD 02/13/2025 1:10 PM [facility] Blood Venous blood specimen / Unknown Venipuncture / Unknown 02/13/2025 6:41 AM EDT 02/13/2025 12:31 PM EDT us Jessica Allen MD LAB BLOOD ORDERABLES Final Resul t [facility] [address] [place] [address], * (ABNORMAL) Complete blood count (02/13/2025 6:41 AM EDT) WBC 10.2 4.8 - 10.8 K/mcL LAB HEMETOLOGY METHOD 02/13/2025 12:45 PM [facility] RBC 3.30(L) 3.80 - 4.80 M/[facility] LAB HEMETOLOGY METHOD 02/13/2025 12:45 PM [facility] Hemoglobin 7.8(L) 11.5 - 16.0 g/dL LAB HEMETOLOGY METHOD 02/13/2025 12:45 PM [facility] Hematocrit 28.5(L) 35.0 - 47.0 % LAB HEMETOLOGY METHOD 02/13/2025 12:45 PM [facility] MCV 86.4 79.0 - 98.0 FL LAB HEMETOLOGY METHOD 02/13/2025 12:45 PM [facility] MCH 23.6(L) 27.0 - 32.0 pcg LAB HEMETOLOGY METHOD 02/13/2025 12:45 PM [facility] MCHC 27.4(L) 32.0 - 37.0 g/dL LAB HEMETOLOGY METHOD 02/13/2025 12:45 PM [facility] RDW 20.4(H) 11.0 - 15.0 % LAB HEMETOLOGY METHOD 02/13/2025 12:45 PM [facility] Platelets 436(H) 130 - 400 K/mcL LAB HEMETOLOGY METHOD 02/13/2025 12:45 PM [facility] MPV 9.8 7.0 - 11.0 FL LAB HEMETOLOGY METHOD 02/13/2025 12:45 PM [facility] NRBC 0.3 <1.0 % LAB HEMETOLOGY METHOD 02/13/2025 12:45 PM [facility] NRBC Absolute 0.03 <0.10 K/mcL LAB HEMETOLOGY METHOD 02/13/2025 12:45 PM [facility] Blood Venous blood specimen / Unknown Venipuncture / Unknown 02/13/2025 6:41 AM EDT 02/13/2025 12:31 PM EDT Jessica Allen MD LAB BLOOD ORDERABLES Final Resul t Performing Organization Address City/State/[facility] Co de Phone Number [facility] LAB [address] [place] [address], documented in this encounter Visit Diagnoses Diagnosis Essential (primary) hypertension Unspecified essential hypertension documented in this encounter Care Teams Advertising Copy Writer Relationship Specialty Start Date End Date Jessica Allen MD [address] [place] [address] [address] [place] [address] PCP - General Geriatric Medicine 01/03/25 documented as of this encounter
--- OUTSIDE RECORDS SUMMARY | 2025-04-20 14:42 | XMS_ITS | Encounter Summary ---
Author Organization [employer] [facility] Address [address] [place] [address] Care Team Providers Care Nuclear Powerplant Mechanic Name Role Phone Jessica Allen MD Primary Care Provider [phone] Encounter Details Date Type Department Care Team (Late st Contact Info) Description 03/18/2025 Lab Requisition [facility] Lab 299 [facility] [place] [address] Jessica Allen MD [address] [place] [address] Unspecified systolic (congestive) heart failure (CMS/HCC V24, [...] LAB CHEMISTRY METHOD 03/18/2025 8:28 AM EDT [facility] Potassium 4.1 3.5 - 5.5 mmol/L LAB CHEMISTRY METHOD 03/18/2025 8:28 AM EDT [facility] Chloride 101 96 - 110 mmol/L LAB CHEMISTRY METHOD 03/18/2025 8:28 AM [facility] CO2 29 21 - 32 mmol/L LAB CHEMISTRY METHOD 03/18/2025 8:28 AM [facility] Anion Gap 5 3 - 11 LAB CHEMISTRY METHOD 03/18/2025 8:28 AM [facility] Glucose 82 70 - 100 mg/dL LAB CHEMISTRY METHOD 03/18/2025 8:28 AM [facility] BUN 23 5 - 25 mg/dL LAB CHEMISTRY METHOD 03/18/2025 8:28 AM [facility] Creatinine 1.80(H) 0.50 - 1.10 mg/dL LAB CHEMISTRY METHOD 03/18/2025 8:28 AM [facility] eGFR 27(L) >=60 mL/min/1. 73m2 LAB CHEMISTRY METHOD 03/18/2025 8:28 AM [facility] Comment:Calculation based on the Chronic Kidney Disease Epidemiology Collaboration (CKD-EPI) equation refit without adjustment for race. BUN/Creatinine Ratio 12.8 LAB CHEMISTRY METHOD 03/18/2025 8:28 AM [facility] Calcium 9.2 8.5 - 10.5 mg/dL LAB CHEMISTRY METHOD 03/18/2025 8:28 AM [facility] Blood Venous blood specimen / Unknown Venipuncture / Unknown 03/18/2025 4:45 AM EDT 03/18/2025 7:37 AM EDT us Jessica Allen MD LAB BLOOD ORDERABLES Final Resul t [facility] [address] [place] [address], documented in this encounter Visit Diagnoses Diagnosis Unspecified systolic (congestive) heart failure (CMS/HCC V24, CMS/HCC V28) Essential (primary) hypertension Unspecified essential hypertension documented in this encounter Care Teams Nuclear Powerplant Mechanic Relationship Specialty Start Date End Date Jessica Allen MD [address] [place] [address] [address] [place] [address] PCP - General Geriatric Medicine 01/03/25 documented as of this encounter
--- OUTSIDE RECORDS SUMMARY | 2025-04-20 14:42 | XMS_ITS | Encounter Summary ---
Author Organization [facility] Address [address] [place] [address] Care Team Providers Care Chronic Condition Nurse Name Role Phone Jessica Allen MD Primary Care Provider [phone] Encounter Details Date Type Department Care Team (Late st Contact Info) Description 02/24/2025 Lab Requisition [facility] Lab [address] [facility] [place] [address] Jessica Allen MD [address] [place] [address] Urinary tract infection, site not specified Social History Tobacco Use Types Packs/Day Years [...] Diagnosis Comments URINALYSIS WITH REFLEX MICROSCOPIC Routine 02/23/2025 6:30 PM EDT Urinary tract infection, site not specified TIGER TOP URINE TUBE Routine 02/23/2025 6:30 PM EDT Urinary tract infection, site not specified URINALYSIS WITH REFLEX MICROSCOPIC Routine 02/23/2025 6:30 PM EDT Urinary tract infection, site not specified CULTURE URINE Routine 02/23/2025 6:30 PM EDT Urinary tract infection, site not specified documented in this encounter Results * (ABNORMAL) Urinalysis with reflex microscopic (02/23/2025 6:30 PM EDT) Specific [place] Urine 1.018 1.003 - 1.030 LAB URINALYSIS - AUTOMATED METHOD 02/24/2025 10:07 AM [facility] pH, Urine 6.0 5.0 - 8.0 pH LAB URINALYSIS - AUTOMATED METHOD 02/24/2025 10:07 AM [facility] Leukocytes, Urine Moderate(A) Negative LAB URINALYSIS - AUTOMATED METHOD 02/24/2025 10:07 AM [facility] Nitrite, Urine Negative Negative LAB URINALYSIS - AUTOMATED METHOD 02/24/2025 10:07 AM [facility] Protein, Urine 300(A) <=Trace mg/dL LAB URINALYSIS - AUTOMATED METHOD 02/24/2025 10:07 AM [facility] Glucose, Urine Negative Negative mg/dL LAB URINALYSIS - AUTOMATED METHOD 02/24/2025 10:07 AM [facility] Ketones, Urine Negative Negative mg/dL LAB URINALYSIS - AUTOMATED METHOD 02/24/2025 10:07 AM [facility] Urobilinogen , Urine 0.2 0.2 - 1.0 mg/dL LAB URINALYSIS - AUTOMATED METHOD 02/24/2025 10:07 AM [facility] Bilirubin, Urine Negative Negative LAB URINALYSIS - AUTOMATED METHOD 02/24/2025 10:07 AM [facility] Blood, Urine Negative Negative LAB URINALYSIS - AUTOMATED METHOD 02/24/2025 10:07 AM [facility] RBC, Urine 0.0 0 - 4 /HPF LAB URINALYSIS - AUTOMATED METHOD 02/24/2025 10:07 AM [facility] WBC, Urine 17.9(H) 0 - 4 /HPF LAB URINALYSIS - AUTOMATED METHOD 02/24/2025 10:07 AM [facility] Squamous Epithelial, Urine 15 0 - 60 /LPF LAB URINALYSIS - AUTOMATED METHOD 02/24/2025 10:07 AM EDT [facility] Non-Squamous Epithelial, Urine 2-5 Transitional epithelial cells. /LPF LAB URINALYSIS - AUTOMATED METHOD 02/24/2025 10:07 AM EDT [facility] Bacteria, Urine Few(A) Negative /HPF LAB URINALYSIS - AUTOMATED METHOD 02/24/2025 10:07 AM EDT [facility] Hyaline Casts, Urine 0.8 0 - 3 /LPF LAB URINALYSIS - AUTOMATED METHOD 02/24/2025 10:07 AM EDT [facility] Urine Urine specimen obtained by clean catch procedure / Unknown Non-blood Collection / Unknown 02/23/2025 6:30 PM EDT 02/24/2025 8:19 AM EDT Jessica Allen MD LAB URINE ORDERABLES Final Resul t Performing Organization Address City/[facility]/ZIP Co de Phone Number [facility] [address] [place] [address], [place] [phone] * [place] top urine tube (02/23/2025 6:30 PM EDT) Extra Tube Hold for add-ons. 02/24/2025 10:01 AM EDT [facility] Comment:Auto resulted. Urine Urine specimen obtained by clean catch procedure / Unknown Non-blood Collection / Unknown 02/23/2025 6:30 PM EDT 02/24/2025 8:19 AM EDT us Jessica Allen MD LAB URINE ORDERABLES Final Resul t [facility] [address] [place] [address], [place] [phone] * (ABNORMAL) Culture urine (02/23/2025 6:30 PM EDT) Culture, Urine 10,000-49,000 CFU/mL Klebsiella pneumoniae ssp pneumoniae(A) SRIKANTH 02/26/2025 11:16 AM EDT [facility] Comment: This is an edited result. Previous organism was Gram negative bacilli on 02/25/2025 at 0829 EDT. Urine Urine specimen obtained by clean catch procedure / Unknown Non-blood Collection / Unknown 02/23/2025 6:30 PM EDT 02/24/2025 8:19 AM EDT Narrative [facility] - 02/26/2025 11:16 AM EDT [...] ug/ml: Susceptible Klebsiella pneumoniae ssp pneumoniae Ciprofloxacin SRIKANTH <=0.06 ug/ml: Susceptible Klebsiella pneumoniae ssp pneumoniae Levofloxacin SRIKANTH <=0.12 ug/ml: Susceptible Klebsiella pneumoniae ssp pneumoniae Nitrofurantoin SRIKANTH 128 ug/ml: Resistant Klebsiella pneumoniae ssp pneumoniae Trimethoprim/Sulfamethoxazo le SRIKANTH <=20 ug/ml: Susceptible us Jessica Allen MD LAB MICROBIOLOGY - GENERAL ORDER JOAN Final Result [facility] [address] [place] [address], documented in this encounter Visit Diagnoses Diagnosis Urinary tract infection, site not specified documented in this encounter Care Teams Chronic Condition Nurse Relationship Specialty Start Date End Date Jessica Allen MD [address] [place] [address] [address] [place] [address] PCP - General Geriatric Medicine 01/03/25 documented as of this encounter
--- OUTSIDE RECORDS SUMMARY | 2025-04-20 14:42 | XMS_ITS | Encounter Summary ---
Author Organization [employer] Address [address] [place] [address] Care Team Providers Care Field Advisor Name Role Phone Jessica Allen MD Primary Care Provider [phone] Encounter Details Date Type Department Care Team (Late st Contact Info) Description 04/02/[address] [facility] - Main Lab 299 [facility] [place] [address] Jessica Allen MD [address] [place] [address] Anemia, unspecified; Heart failure, unspecified (CMS/HCC V24, CMS/HCC V28) Social History [...] Associated Diagnosis Comments COMPLETE BLOOD COUNT Routine 04/02/2025 6:08 AM EDT Anemia, unspecified Heart failure, unspecified (CMS/HCC V24, CMS/HCC V28) BASIC METABOLIC PANEL Routine 04/02/2025 6:08 AM EDT Anemia, unspecified Heart failure, unspecified (CMS/HCC V24, CMS/HCC V28) documented in this encounter Results * (ABNORMAL) Basic metabolic panel (04/02/2025 6:08 AM EDT) Sodium 137 133 - 145 mmol/L LAB CHEMISTRY METHOD 04/02/2025 12:48 PM EDT [facility]) [facility] Potassium 4.2 3.5 - 5.5 mmol/L LAB CHEMISTRY METHOD 04/02/2025 12:48 PM [facility] Chloride 98 96 - 110 mmol/L LAB CHEMISTRY METHOD 04/02/2025 12:48 PM [facility] CO2 33(H) 21 - 32 mmol/L LAB CHEMISTRY METHOD 04/02/2025 12:48 PM [facility] Anion Gap 6 3 - 11 LAB CHEMISTRY METHOD 04/02/2025 12:48 PM [facility] Glucose 67(L) 70 - 100 mg/dL LAB CHEMISTRY METHOD 04/02/2025 12:48 PM [facility] BUN 21 5 - 25 mg/dL LAB CHEMISTRY METHOD 04/02/2025 12:48 PM [facility] Creatinine 1.22(H) 0.50 - 1.10 mg/dL LAB CHEMISTRY METHOD 04/02/2025 12:48 PM [facility] eGFR 43(L) >=60 mL/min/1. 73m2 LAB CHEMISTRY METHOD 04/02/2025 12:48 PM [facility] Comment:Calculation based on the Chronic Kidney Disease Epidemiology Collaboration (CKD-EPI) equation refit without adjustment for race. BUN/Creatinine Ratio 17.2 LAB CHEMISTRY METHOD 04/02/2025 12:48 PM [facility] Calcium 8.8 8.5 - 10.5 mg/dL LAB CHEMISTRY METHOD 04/02/2025 12:48 PM [facility] Blood Venous blood specimen / Unknown Venipuncture / Unknown 04/02/2025 6:08 AM EDT 04/02/2025 10:59 AM EDT us Jessica Allen MD LAB BLOOD ORDERABLES Final Resul t [facility] [address] [place] [address], [place] [phone] * (ABNORMAL) Complete blood count (04/02/2025 6:08 AM EDT) [facility] WBC 7.9 4.8 - 10.8 K/mcL LAB HEMETOLOGY METHOD 04/02/2025 11:35 AM [facility] RBC 4.10 3.80 - 4.80 M/mcL LAB HEMETOLOGY METHOD 04/02/2025 11:35 AM [facility] Hemoglobin 9.8(L) 11.5 - 16.0 g/dL LAB HEMETOLOGY METHOD 04/02/2025 11:35 AM [facility] Hematocrit 36.2 35.0 - 47.0 % LAB HEMETOLOGY METHOD 04/02/2025 11:35 AM [facility] MCV 88.3 79.0 - 98.0 FL LAB HEMETOLOGY METHOD 04/02/2025 11:35 AM [facility] MCH 23.9(L) 27.0 - 32.0 pcg LAB HEMETOLOGY METHOD 04/02/2025 11:35 AM [facility] MCHC 27.1(L) 32.0 - 37.0 g/dL LAB HEMETOLOGY METHOD 04/02/2025 11:35 AM [facility] RDW 23.9(H) 11.0 - 15.0 % LAB HEMETOLOGY METHOD 04/02/2025 11:35 AM [facility] Platelets 264 130 - 400 K/mcL LAB HEMETOLOGY METHOD 04/02/2025 11:35 AM [facility] MPV 10.6 7.0 - 11.0 FL LAB HEMETOLOGY METHOD 04/02/2025 11:35 AM [facility] NRBC 0.0 <1.0 % LAB HEMETOLOGY METHOD 04/02/2025 11:35 AM [facility] NRBC Absolute 0.00 <0.10 K/mcL LAB HEMETOLOGY METHOD 04/02/2025 11:35 AM EDT [facility] Blood Venous blood specimen / Unknown Venipuncture / Unknown 04/02/2025 6:08 AM EDT 04/02/2025 10:59 AM EDT Jessica Allen MD LAB BLOOD ORDERABLES Final Resul t [facility] [address] [place] [address], documented in this encounter Visit Diagnoses Diagnosis Anemia, unspecified Heart failure, unspecified (CMS/HCC V24, CMS/HCC V28) Heart failure, unspecified documented in this encounter Care Teams Field Advisor Relationship Specialty Start Date End Date Jessica Allen MD [address] [place] [address] [address] [place] [address] PCP - General Geriatric Medicine 01/03/25 documented as of this encounter
[2025-04-20 14:44] LABS: Anion Gap 14 (12-20); Blood Urea Nitrogen 45 mg/dL (9-16); Calcium 9.2 mg/dL (8.4-10.2); Carbon Dioxide 30 mmol/L (22-29); Chloride 101 mmol/L (96-108); Creatinine Clr Calc Pharmacy 19.1; Estimated Glomerular Filt Rate 26; Magnesium 2.5 mg/dL (1.6-2.6); Potassium 5.6 mmol/L (3.3-5.1); Sodium 139 mmol/L (135-145)
[2025-04-20 14:49] LABS: B Type Natriuretic Peptide 3454 pg/mL (<100)
--- NOTE | 2025-04-20 15:10 | PC.NURSE ---
repeat labs/additional labs obtained/sent to lab. abx infusing per provider order. pt remains in afib - HR between 110-120bpm. otherwise vss and up to date aside from having continuous soft BP. pt remains on 4L via NC. no apparent respiratory distress. no sob/wob noted. respirations even/unlabored. pt pending bed assignment at this time. plan of care ongoing.
--- NOTE | 2025-04-20 15:18 | PHA.MEDREC ---
Addendum entered by Noé Wagoner PharmD 04/20/25 15:20: reviewed Original Note: Pharmacy Consult ? Medication Reconciliation Pharmacy has completed the medication reconciliation. Utilized list from Mellissa Boyer.
[2025-04-20 15:19] LABS: Appearance Urine Cloudy; Glucose Urine UA Negative (Negative); PH 5.0 (5.0-9.0); Specific Gravity - Urine 1.020 (1.005-1.025); UMIC TRIGGER UA YES
[2025-04-20 15:19] LABS: INTERNATIONAL NORM RATIO 1.1 (0.9-1.1); Prothrombin Time 12.1 SEC (10.9-12.4)
[2025-04-20 15:27] LABS: COVID-19 Test Negative (Negative); IDNOW Serial# 55D5AD1C
[2025-04-20 15:29] LABS: Prealbumin 14.0 mg/dL (20-40)
--- NOTE | 2025-04-20 15:31 | PC.NURSE ---
great-granddaughter bedside. verbal update provided to family member at this time.
--- NOTE | 2025-04-20 17:33 | PC.NURSE ---
Addendum entered by Dang Coburn RN 04/20/25 18:09: 16Fr catheter placed. Pt tolerated well, slept through it. Draining russell, cloudy urine. 500mls. Original Note: pt noted to have insufficient urine output in purewick canister despite previous medication administration. bladder scan performed displaying 400ml. provider notified/aware. pending new orders at this time.
[2025-04-20] MEDS: Albuterol Sulfate 7.5 MG, Albuterol Sulfate (0.083%) 2.5 MG 10 MG INHALE (18:22)
--- NOTE | 2025-04-20 19:00 | PC.NURSE ---
this RN assumed care of this pt at this time, pt connected to monitor, VSS, responding to painful stimuli
[2025-04-20 19:10] LABS: Glucose, Whole Blood 142 mg/dL (60-115)
[2025-04-20 20:53] LABS: Glucose, Whole Blood 131 mg/dL (60-115)
[2025-04-21] VITALS (7 sets, daily range): BP systolic 100–127; BP diastolic 51–66; PULSE 92–119; RESP 12–19; TEMP 36.3–37.1; O2SAT 92–100
[2025-04-21 06:56] LABS: Glucose, Whole Blood 115 mg/dL (60-115)
--- NOTE | 2025-04-21 07:00 | CA_ITS ---
Transthoracic Echocardiogram Patient (Last, First, Middle): Jaki Kulkarni, Gender: Female Date of : 1935 Age: 89 Procedure Date: 04/21/2025 Procedure Type: Transthoracic Echocardiogram Location: [facility] [place] Height: 157.48 cm Weight: 72.58 kg BSA: 1.74 m2 Heart Rate: bpm BP: 117 / 64 mmHg Hold Worker: JERRICA Referring MD: Karen Medel MD Symptoms: Afib with RVR Study Quality: Adequate Conclusions: - Normal left ventricular cavity size. There is mildly increased left ventricular wall thickness. The left ventricular systolic function is moderately decreased. The visually estimated ejection fraction is between 30-35%. - Mildly increased right ventricular cavity size. There is mild to moderately decreased right ventricular systolic function. - Moderately elevated right atrial pressure. Mild pulmonary hypertension is present. Findings Left Ventricle Normal left ventricular cavity size. There is mildly increased left ventricular wall thickness. The left ventricular systolic function is moderately decreased. The visually estimated ejection fraction is between 30 35%. There is moderate global hypokinesis. Diastolic function is indeterminate on the basis of available data. Right Ventricle Mildly increased right ventricular cavity size. There is mild to moderately decreased right ventricular systolic function. Atria The left atrium is mildly dilated. The right atrium is normal in size. Aortic Valve There is no aortic valve stenosis. There is no aortic valve regurgitation. Mitral Valve The mitral valve appears normal. There is trace mitral valve regurgitation. There is no mitral valve stenosis. Pulmonic Valve The pulmonic valve is normal. There is trace pulmonic valve regurgitation. Tricuspid Valve Normal tricuspid valve structure. There is moderate to severe tricuspid valve regurgitation. The right ventricular systolic pressure is 44 mmHg. Moderately elevated right atrial pressure. Mild pulmonary hypertension is present. Great Vessels The visualized portions of the pulmonary artery and branches are normal. Venous The inferior vena cava is normal in size and collapses less than 50% with inspiration. Pericardium/Pleural There is no evidence of pericardial effusion. Prior Study Comparison No significant change compared to prior study dated: 12/30/2024. Measurements 2D Linear Measurements IVSd: 1.02 0.6-0.9/0.6-1.0 cm LVIDd: 3.67 3.9-5.3/4.2-5.9 cm LVIDd Index: 2.11 2.4-3.2/2.2-3.1 cm/m2 LVIDs: 3.07 2.0-3.6 cm LVPWd: 1.12 0.7-1.1 cm LA Diam: 3.80 2.7-3.8/3.0-4.0 cm LAIDs Index: 2.18 1.5-2.3 cm/m2 LV Mass: 152.56 67-162/88-224 g LV Mass Index: 87.68 43-95/49-115 g/m2 LVOT Diam: 1.90 3.0+(-)1.3 cm 2D Systolic Function EF 4C: 25.70 >55% EF 2C: 21.40 >55% EF BiP: 24.50 >55% Mitral Valve MV Pk E: 1.25 E'Lateral: 6.20 E/E' Lat: 20.20 Aortic Valve AoV Pk Romeo: 0.82 AoV Mn Romeo: 0.57 AoV VTI: 0.14 AoV Pk Grad: 3.00 Aov Mn Grad: 1.00 DEANA Cont.VTI: 1.81 LVOT LVOT Pk Romeo: 0.59 LVOT Mn Romeo: 0.40 LVOT VTI: 0.09 LVOT Pk Grad: 1.00 LVOT Mn Grad: 1.00 LVOT Diam: 1.90 LVOT Area: 2.84 Diastolic Function MV Pk E: 1.25 E' Laterial: 6.20 E/E' Lat: 20.20 Right Ventricle TAPSE (mm): 12.40 TVS' Romeo: 7.07 Tricuspid Valve TR Pk Romeo: 3.02 TR Pk Grad: 36.00 RA Press: 8.00 RVSP: 44.00 Great Vessels Aorta Sinus of Valsalva: 2.80 2.0-3.5 cm Ao Asc: 2.90 2.1-3.4 cm Pulmonary Veins Pulm Vein S/D 0.70 Pulmonary Valve PV Pk Romeo: 0.70 Peak PV Grad: 2.00 [place] Pk Romeo: 2.16 Updated in Other Vendor System with Status of Final Walter Jason MD electronically signed on 04/22/2025 1:07:07 PM with status of Final
[2025-04-21 07:25] LABS: MANUAL DIFF FLAG NO
[2025-04-21 07:28] LABS: Hematocrit 37.4 % (37.0-47.0); Hemoglobin 9.9 g/dl (12.0-16.0); Imm Gran Abs Auto 0.02 X10*3/uL (0.00-0.03); Imm Gran Pct Auto 0.6 % (0.0-0.4); Lymphocytes Absolute Auto 0.5 X10*3/uL (1.2-4.9); Mean Corpuscular HGB Conc 26.5 g/dl (31.0-35.0); Mean Corpuscular Hemoglobin 23.8 pg (27.0-33.0); Mean Corpuscular Volume 89.9 fL (80.0-98.0); NRBC Abs Auto 0.020 X10*3/uL (0.0-0.012); NRBC Pct Auto 0.6 /100WBC (0.0-0.2); Platelet Count 231 X10*3/uL (160-400); Red Blood Count 4.16 X10*6/uL (4.20-5.50); White Blood Count 3.6 X10*3/uL (4.8-10.8)
[2025-04-21 07:53] LABS: Alanine Aminotransferase < 6 U/L (0-31); Albumin Level 2.9 g/dL (3.5-5.0); Alkaline Phosphatase 96 U/L (39-117); Anion Gap 12 (12-20); Aspartate Amino Transferase 16 U/L (5-31); Blood Urea Nitrogen 50 mg/dL (9-16); Calcium 9.4 mg/dL (8.4-10.2); Carbon Dioxide 33 mmol/L (22-29); Chloride 101 mmol/L (96-108); Creatinine Clr Calc Pharmacy 19.6; Estimated Glomerular Filt Rate 26; Magnesium 2.3 mg/dL (1.6-2.6); Potassium 5.0 mmol/L (3.3-5.1); Sodium 141 mmol/L (135-145); Total Protein 6.4 g/dL (6.5-8.0)
--- NOTE | 2025-04-21 08:13 | P.PNIM_ITS ---
Subjective Subjective Date of Service: 04/21/25 Interval History: seems to be more stable since admission Currently on 3L O2 Review of Systems Review of Systems: Yes Unobtainable due to mental condition and Unobtainable due to mental status Physical Exam 2 Exam: Exam: General: AOx 0 , resp distress subsided, pt restfing peacefully at the time of my eval Resp: No assessory muscle usage today CVS: S1, S2, RRR GI - Soft, non-tender, non-distended Vital Signs: Vital Signs: Last Vital Signs Temp 97.4 F 04/21/25 06:55 Pulse 97 04/21/25 06:55 Resp 18 04/21/25 06:55 BP 110/59 L 04/21/25 06:55 Pulse Ox 96 04/21/25 06:55 O2 Del Method Nasal Cannula 04/21/25 06:55 O2 Flow Rate 3 04/21/25 06:55 Oxygen Flow Rate 4 04/20/25 11:57 BMI result Body Mass Index 29.4 Objective Data Active Medications Acetaminophen (Acetaminophen 325 Mg Tablet) 650 mg PO Q6H PRN PRN Reason: Pain, Mild 1-3,fever,headache Albuterol/Ipratropium (Albuterol/Iprat 2.5/0.5mg 3 Ml Ampul.Neb) 3 ml INHALE Q4H PRN PRN Reason: Shortness of Breath/Wheezing Benzonatate (Benzonatate 100 Mg Capsule) 100 mg PO TID PRN PRN Reason: Cough Calcium Carbonate (Calcium Carbonate 750 Mg Tab.Chew) 750 mg PO Q4H PRN PRN Reason: Heartburn Dextrose (Dextrose 50 % 25 Gm/50 Ml Syringe) 25 gm IVPUSH Q15M PRN; Protocol PRN Reason: per Hypoglycemia Standing Ord. Docusate Sodium (Docusate Sodium 100 Mg Capsule) 100 mg PO BID [facility] Last Admin: 04/20/25 22:06 Dose: Not Given Documented By: SÁNCHEZ Non-Admin Reason: unable to tolerate PO Glucose (Glucose Gel 15 Gm Gel..Gram.) 15 gm PO Q15M PRN; Protocol PRN Reason: per Hypoglycemia Standing Ord. Piperacillin Sod/Tazobactam (Sod 2.25 gm/ Sodium Chloride) 50 mls @ 100 mls/hr IV Q6H [facility] Last Infusion: 04/21/25 04:50 Dose: Infused Documented By: ZAKIA Vancomycin HCl 500 mg/ Sodium (Chloride) 110 mls @ 110 mls/hr IV Q24H [facility] Insulin Human Lispro (Insulin Lispro 100 Unit/Ml 3 Ml Vial) 0 unit SUBCUT QIDACHS [facility]; Protocol Last Admin: 04/21/25 08:10 Dose: Not Given Documented By: CHILO Non-Admin Reason: No Insulin Coverage Melatonin (Melatonin 3 Mg Tablet) 6 mg PO BEDTIME PRN PRN Reason: Insomnia Ondansetron HCl (Ondansetron Hcl 4 Mg/2 Ml Vial) 4 mg IVPUSH Q8H PRN PRN Reason: Nausea and Vomiting Pantoprazole Sodium (Pantoprazole Sodium 40 Mg/10 Ml Vial) 40 mg IVPUSH DAILY@0630 [facility] Last Admin: 04/21/25 05:37 Dose: 40 mg Documented By: ZAKIA Pharmacy Consult (Consult Rx Vancomycin Dosing) 1 each MISCELLANE DAILY PRN PRN Reason: Consult order Polyethylene Glycol (Polyethylene Glycol 3350 17 Gm Powd.Pack) 17 gm PO DAILY PRN PRN Reason: Constipation Senna (Sennosides 8.6 Mg Tablet) 17.2 mg PO BEDTIME [facility] Last Admin: 04/20/25 22:06 Dose: Not Given Documented By: SÁNCHEZ Non-Admin Reason: unable to tolerate PO Sodium Chloride (0.9 % Sodium Chloride Flush 3 Ml Syringe) 3 ml IVFLUSH QSHIFT [facility] Last Admin: 04/21/25 00:00 Dose: 3 ml Documented By: SÁNCHEZ Labs 04/21/25 06:28 04/21/25 06:28 Labs: Laboratory Results - last 24 hr 04/20/25 04/20/25 04/20/25 12:22 12:23 12:29 MCV 89.5 MCH 24.1 L MCHC 27.0 L RDW 21.1 H Plt Count 317 D MPV 10.0 Immature Gran % (Auto) 0.5 H Neut % (Auto) 80.0 H Lymph % (Auto) 9.8 L [place] % (Auto) 8.0 Eos % (Auto) 1.3 Baso % (Auto) 0.4 Lymph # (Auto) 1.0 L [place] # (Auto) 0.8 Eos # (Auto) 0.1 Baso # (Auto) 0.0 Abs Immat Gran (auto) 0.05 H Absolute Neuts (auto) 8.3 Absolute Nucleated RBC 0.060 H Nucleated RBC % (auto) 0.6 H PT 12.1 INR 1.1 Hold Blue Top SEE NOTE VBG pH 7.35 VBG pCO2 59 VBG pO2 55 VBG HCO3 33 H VBG O2 Saturation 86.0 VBG Base Excess 5.9 Anion Gap 13 Estim Creat Clear Calc 19.0 Estimated GFR 25 POC Glucose Random Glucose 115 Lactic Acid Calcium 9.7 Phosphorus Magnesium 2.5 Total Bilirubin AST ALT Alkaline Phosphatase C-Reactive Protein B-Natriuretic Peptide 3296 H Total Protein Albumin Prealbumin TSH 2.80 Urine Color Urine Appearance Urine pH Ur Specific [place] Urine Protein Urine Glucose (UA) Urine Ketones Urine Blood Urine Nitrite Ur Leukocyte Esterase Urine RBC Urine WBC Ur Squamous Epith Cells Urine Bacteria Hyaline Casts Urine Osmolality Ur Random Sodium Vancomycin Trough COVID-19 (JHONATHAN) COVID-19 [employer] 04/20/25 04/20/25 04/20/25 13:24 14:04 14:07 MCV MCH MCHC RDW Plt Count MPV Immature Gran % (Auto) Neut % (Auto) Lymph % (Auto) [place] % (Auto) Eos % (Auto) Baso % (Auto) Lymph # (Auto) [place] # (Auto) Eos # (Auto) Baso # (Auto) Abs Immat Gran (auto) Absolute Neuts (auto) Absolute Nucleated RBC Nucleated RBC % (auto) PT INR Hold Blue Top VBG pH VBG pCO2 VBG pO2 VBG HCO3 VBG O2 Saturation VBG Base Excess Anion Gap 14 Estim Creat Clear Calc 19.1 Estimated GFR 26 POC Glucose 112 195 H Random Glucose 225 H Lactic Acid Calcium 9.2 Phosphorus Magnesium 2.5 Total Bilirubin AST ALT Alkaline Phosphatase C-Reactive Protein B-Natriuretic Peptide 3454 H Total Protein Albumin Prealbumin TSH Urine Color Urine Appearance Urine pH Ur Specific [place] Urine Protein Urine Glucose (UA) Urine Ketones Urine Blood Urine Nitrite Ur Leukocyte Esterase Urine RBC Urine WBC Ur Squamous Epith Cells Urine Bacteria Hyaline Casts Urine Osmolality Ur Random Sodium Vancomycin Trough COVID-19 (JHONATHAN) COVID-19 [employer] 04/20/25 04/20/25 04/20/25 15:01 15:02 15:03 MCV MCH MCHC RDW Plt Count MPV Immature Gran % (Auto) Neut % (Auto) Lymph % (Auto) [place] % (Auto) Eos % (Auto) Baso % (Auto) Lymph # (Auto) [place] # (Auto) Eos # (Auto) Baso # (Auto) Abs Immat Gran (auto) Absolute Neuts (auto) Absolute Nucleated RBC Nucleated RBC % (auto) PT INR Hold Blue Top VBG pH VBG pCO2 VBG pO2 VBG HCO3 VBG O2 Saturation VBG Base Excess Anion Gap Estim Creat Clear Calc Estimated GFR POC Glucose Random Glucose Lactic Acid 1.6 Calcium Phosphorus Magnesium Total Bilirubin AST ALT Alkaline Phosphatase C-Reactive Protein 0.23 B-Natriuretic Peptide Total Protein Albumin Prealbumin 14.0 L TSH Urine Color Yellow Urine Appearance Cloudy Urine pH 5.0 Ur Specific [place] 1.020 Urine Protein 300 (3+) H Urine Glucose (UA) Negative Urine Ketones Negative Urine Blood Negative Urine Nitrite Negative Ur Leukocyte Esterase Large (3+) H Urine RBC 0-2 Urine WBC >50 H Ur Squamous Epith Cells 0-2 Urine Bacteria 2+ Hyaline Casts 3-5 Urine Osmolality 417 Ur Random Sodium < 20.0 Vancomycin Trough < 2.0 L COVID-19 (JHONATHAN) Negative COVID-19 Clin Com See Note 04/20/25 04/20/25 04/21/25 18:59 20:48 06:28 MCV 89.9 MCH 23.8 L MCHC 26.5 L RDW 20.6 H Plt Count 231 D MPV 10.1 Immature Gran % (Auto) 0.6 H Neut % (Auto) 82.4 H Lymph % (Auto) 13.0 L [place] % (Auto) 3.7 Eos % (Auto) 0.0 Baso % (Auto) 0.3 Lymph # (Auto) 0.5 L [place] # (Auto) 0.1 Eos # (Auto) 0.0 Baso # (Auto) 0.0 Abs Immat Gran (auto) 0.02 Absolute Neuts (auto) 2.9 Absolute Nucleated RBC 0.020 H Nucleated RBC % (auto) 0.6 H PT INR Hold Blue Top VBG pH VBG pCO2 VBG pO2 VBG HCO3 VBG O2 Saturation VBG Base Excess Anion Gap 12 Estim Creat Clear Calc 19.6 Estimated GFR 26 POC Glucose 142 H 131 H Random Glucose 108 Lactic Acid Calcium 9.4 Phosphorus 4.5 Magnesium 2.3 Total Bilirubin 0.7 AST 16 ALT < 6 Alkaline Phosphatase 96 C-Reactive Protein B-Natriuretic Peptide Total Protein 6.4 L Albumin 2.9 L Prealbumin TSH Urine Color Urine Appearance Urine pH Ur Specific [place] Urine Protein Urine Glucose (UA) Urine Ketones Urine Blood Urine Nitrite Ur Leukocyte Esterase Urine RBC Urine WBC Ur Squamous Epith Cells Urine Bacteria Hyaline Casts Urine Osmolality Ur Random Sodium Vancomycin Trough COVID-19 (JHONATHAN) COVID-19 Clin Com 04/21/25 06:51 MCV MCH MCHC RDW Plt Count MPV Immature Gran % (Auto) Neut % (Auto) Lymph % (Auto) [place] % (Auto) Eos % (Auto) Baso % (Auto) Lymph # (Auto) [place] # (Auto) Eos # (Auto) Baso # (Auto) Abs Immat Gran (auto) Absolute Neuts (auto) Absolute Nucleated RBC Nucleated RBC % (auto) PT INR Hold Blue Top VBG pH VBG pCO2 VBG pO2 VBG HCO3 VBG O2 Saturation VBG Base Excess Anion Gap Estim Creat Clear Calc Estimated GFR POC Glucose 115 Random Glucose Lactic Acid Calcium Phosphorus Magnesium Total Bilirubin AST ALT Alkaline Phosphatase C-Reactive Protein B-Natriuretic Peptide Total Protein Albumin Prealbumin TSH Urine Color Urine Appearance Urine pH Ur Specific [place] Urine Protein Urine Glucose (UA) Urine Ketones Urine Blood Urine Nitrite Ur Leukocyte Esterase Urine RBC Urine WBC Ur Squamous Epith Cells Urine Bacteria Hyaline Casts Urine Osmolality Ur Random Sodium Vancomycin Trough COVID-19 (JHONATHAN) COVID-19 Clin Com Assessment and Plan (1) Acute respiratory failure with hypoxia: Status: Acute Plan Patient is an 89-year-old fdc resident with known dementia, medical history of COPD, acute on chronic hypoxic respiratory failure requiring 2 L at baseline, AFib without Eliquis given UGI be in prior admission, CKD stage 3, esophagitis, Schatzki's ring, esophagitis, gastritis, diverticulosis, internal hemorrhoids, AVM BIBA from her nursing facility for acute onset hypoxic read respiratory failure in the upper 80s requiring 10 L by face mask. Report last month showed that she had massive GI bleed requiring stopping Eliquis and required nearly 6 units transfusion. Pt likely has AHRF 2/2 decompensated AE HFrEF without inf etiology AHRF 2/2 decompensated AE HFrEF without inf etiology COPD on 2L o2 at baseline Afib not on Eliquis 2/2 massive GIB per pprior multidisciplinary mx prior recent admission Significant sepsis workup thus far unremarkable - hence will switch abx to only Ceftraixone (?presumptive UTI) as all inf markers -ve Fluids are limited and we are now having to diurese her aggressively given HFrEF and hypoxia and hypoxemia She appears to have her baseline blood pressure around 90/50 which she is at since admission the patient does not have any overt signs of sepsis however given her comorbidities, she may not be able to mount aggressive/appropriate response to sepsis Imaging -ve for acute IC pathology HFrEF AFib with RVR AFib not on Eliquis- 2/ massive GIB per pprior multidisciplinary mx 2 weeks ago Spoke to the daughter Jaki who is the healthcare proxy. Per triage note the patient was noted to be hypoxic requiring nearly 4 L by nasal cannula in the ER she was noted to have required nearly 10 L via non-rebreather with good effect. She was noted to have HFrEF, increased bilateral opacities, left lower lobe pneumonia that appears to be forming, although no overt signs of sepsis (negative leukocytosis, no venous lactate, no elevation of inflammatory markers). We will treat AFib with RVR with metoprolol to maintain hemodynamic status Repeat TTE ordered BMP elevated K - now resolving Possible UTI Fajardo placed this admission- secondary to acute urinary retention CKD stage 3-baseline Patient unable to endorse symptoms however her UA appears to be positive Patient with medical comorbidities may not be able to express/mount an appropriate response and hence we are treating her with broad-spectrum antibiotics Fajardo is indicated as she is retaining and that could exacerbate her AMS/UTI or cause bacteremia hence it is indicated even though UA is positive Massive GI bleed 2 weeks ago requiring discontinuation of oral anticoagulants esophagitis, Schatzki's ring, esophagitis, gastritis, diverticulosis, internal hemorrhoids, AVM We will continue to monitor CBC daily DVT with SCD boots given GI bleed Prognosis guarded If the patient were to decompensate-please reach out to the healthcare proxy Jaki prior to escalating care Quality Stroke Does the patient have a stroke diagnosis?: No VTE Prior VTE?: No VTE Risk Level:: Medical - moderate - high VTE Device Contraindication: N/A - Device Ordered VTE Drug Contraindication: Treatment Not Tolerated
[2025-04-21] MEDS: 0.9 % Sodium Chloride Flush 3 ML SYRINGE IVFLUSH ×2 (08:49)
--- NOTE | 2025-04-21 09:36 | MHC.CM.PN ---
EMR REVIEWED, PT W/RESP FAILURE/SEPSIS D/T PNA/UTI, IMM 04/21/25 DELIVERED TO PT'S DTR/HCP EMILI MCNALLY AT 0932AM #ON FILE, PER DISCUSSION IMM WILL BE SENT VIA CERTIFIED MAIL. EMILI VERIFIES PT IS IN LTC AT [facility], EMILI REPORTS PT USED TO USE A WC HOWEVER IS MAINLY IN BED NOW AND PLAN WILL BE FOR PT TO RETURN TO [facility] WHEN PT IS MEDICALLY CLEARED. PCP/HCP VERIFIED.
[2025-04-21 09:52] LABS: Chlamydia pneumoniae PCR Not Detected (Not Detect.); Coronavirus 229E PCR Not Detected (Not Detect.); Coronavirus HKU1 PCR Not Detected (Not Detect.); Coronavirus NL63 PCR Not Detected (Not Detect.); Coronavirus OC43 PCR Not Detected (Not Detect.); RSV PCR Not Detected (Not Detect.); Rhino/Enterovirus PCR Not Detected (Not Detect.)
[2025-04-21 10:13] LABS: Influenza A H1 PCR Not Detected (Not Detect.); Influenza A H1-2009 PCR Not Detected (Not Detect.); SARS-CoV-2 PCR Not Detected (Not Detect.)
[2025-04-21 10:14] LABS: Influenza A H3 PCR Not Detected (Not Detect.)
[2025-04-21 10:50] LABS: Glucose, Whole Blood 102 mg/dL (60-115)
--- NOTE | 2025-04-21 11:50 | HO.WOUND ---
Wound Consult: Initial 89 yr old female admitted to [facility] [place] on 04/20/25- See progress notes and H&P for detailed history. Wound consult placed for bruising to hands. Patient agreeable to assessment and photo documentation. Etiology: Right hand bruising Wound Bed: skin intact Drainage / Odor: none [place] wound: ? No Induration, Fluctuance or Warmth noted Pain: none Goals of Treatment: ? leave open to air Etiology: Coccyx is intact with small area of pink coloration that is blanching, there is superficial epidermal peeling also. Measurements: 0.5cm x 1cm x 0cm Wound Bed: pink intact blanching Drainage / Odor: none [place] wound: ? No Induration, Fluctuance or Warmth noted Pain: none Goals of Treatment: ? prevention with offloading and foam dressings. left heel right heel Etiology: bilateral heels, intact, pink and blanching Wound Bed: intact, pink, blanching Drainage / Odor: none [place] wound: ? No Induration, Fluctuance or Warmth noted Pain: none Goals of Treatment: ? prevention, offloading and foams Recommendations: 1. Turn and Reposition every 2 hours and as needed for patient comfort. Use pillows or wedges to support off loading positions. 2. Off Load all bony prominences with use of pillows and heel boots if needed. Apply Preventative foams where needed. 3. Monitor for incontinence and moisture control, use barrier creams when needed for prevention and treatment. 4. Provide adequate and supplemental nutrition. 5. Order or Continue low air loss mattress. 6. When applicable maintain blood glucose levels per Providers order. Coccyx and bilateral heels: Off Load Pressure with Q2 hr turns and use of pillows - Routine cleansing. Apply skin prep allow to dry. Cover with foam dressing to aid in off loading and protection from friction. Peel back and assess Q shift and change every 5-7 days and PRN. Re-consult wound care Nurse for wound deterioration or wound changes.
[2025-04-21 16:33] LABS: Glucose, Whole Blood 82 mg/dL (60-115)
[2025-04-21 21:37] LABS: Glucose, Whole Blood 97 mg/dL (60-115)
[2025-04-21] MEDS: Furosemide 20 MG/2 ML VIAL 10 MG IVPUSH (22:42)
[2025-04-22] VITALS (8 sets, daily range): BP systolic 105–142; BP diastolic 57–80; PULSE 73–133; RESP 16–20; TEMP 36.6–37.1; O2SAT 94–100
[2025-04-22] MEDS: 0.9 % Sodium Chloride Flush 3 ML SYRINGE IVFLUSH ×4 (00:13→21:39)
[2025-04-22 06:49] LABS: Glucose, Whole Blood 76 mg/dL (60-115)
[2025-04-22 06:54] LABS: MANUAL DIFF FLAG NO
[2025-04-22 07:08] LABS: Hematocrit 32.9 % (37.0-47.0); Hemoglobin 9.3 g/dl (12.0-16.0); Imm Gran Abs Auto 0.04 X10*3/uL (0.00-0.03); Imm Gran Pct Auto 0.4 % (0.0-0.4); Lymphocytes Absolute Auto 0.9 X10*3/uL (1.2-4.9); Mean Corpuscular HGB Conc 28.3 g/dl (31.0-35.0); Mean Corpuscular Hemoglobin 23.8 pg (27.0-33.0); Mean Corpuscular Volume 84.4 fL (80.0-98.0); NRBC Abs Auto 0.040 X10*3/uL (0.0-0.012); NRBC Pct Auto 0.4 /100WBC (0.0-0.2); Platelet Count 225 X10*3/uL (160-400); Red Blood Count 3.90 X10*6/uL (4.20-5.50); White Blood Count 10.3 X10*3/uL (4.8-10.8)
[2025-04-22 07:34] LABS: Alanine Aminotransferase < 6 U/L (0-31); Albumin Level 2.9 g/dL (3.5-5.0); Alkaline Phosphatase 83 U/L (39-117); Anion Gap 13 (12-20); Aspartate Amino Transferase 17 U/L (5-31); Blood Urea Nitrogen 49 mg/dL (9-16); Calcium 9.6 mg/dL (8.4-10.2); Carbon Dioxide 32 mmol/L (22-29); Chloride 100 mmol/L (96-108); Creatinine Clr Calc Pharmacy 23.0; Estimated Glomerular Filt Rate 31; Magnesium 2.2 mg/dL (1.6-2.6); Potassium 4.5 mmol/L (3.3-5.1); Sodium 140 mmol/L (135-145); Total Protein 6.3 g/dL (6.5-8.0)
--- NOTE | 2025-04-22 08:12 | PC.RT ---
pt has not needed bipap at all per order. therefore order will be dc'd per policy.
--- NOTE | 2025-04-22 08:55 | P.PNIM_ITS ---
Subjective Subjective Date of Service: 04/22/25 Interval History: Patient appears to be clinically improving and is back to her baseline 2 L O2 We will likely discontinue antibiotics given risk for C diff We will likely aim for more aggressive diuresis and heart rate control Review of Systems Review of Systems: Yes Unobtainable due to mental condition and Unobtainable due to mental status Physical Exam 2 Exam: Exam: General: AOx 0 , resp distress subsided, pt restfing peacefully at the time of my eval Resp: No assessory muscle usage today CVS: S1, S2, RRR GI - Soft, non-tender, non-distended Vital Signs: Vital Signs: Last Vital Signs Temp 98.0 F 04/22/25 06:51 Pulse 111 H 04/22/25 06:51 Resp 18 04/22/25 06:51 BP 142/80 H 04/22/25 06:51 Pulse Ox 100 04/22/25 06:51 O2 Del Method Nasal Cannula 04/22/25 06:51 O2 Flow Rate 3 04/22/25 06:51 Oxygen Flow Rate 4 04/20/25 11:57 BMI result Body Mass Index 29.4 Objective Data Active Medications Acetaminophen (Acetaminophen 325 Mg Tablet) 650 mg PO Q6H PRN PRN Reason: Pain, Mild 1-3,fever,headache Albuterol/Ipratropium (Albuterol/Iprat 2.5/0.5mg 3 Ml Ampul.Neb) 3 ml INHALE Q4H PRN PRN Reason: Shortness of Breath/Wheezing Aspirin (Aspirin Enteric Coated 81 Mg Tablet.Dr) 81 mg PO DAILY [facility] Benzonatate (Benzonatate 100 Mg Capsule) 100 mg PO TID PRN PRN Reason: Cough Bisacodyl (Bisacodyl 10 Mg Supp.Rect) 10 mg [place] DAILY PRN PRN Reason: Constipation Brimonidine Tartrate (Brimonidine Tartrate 0.2% Oph 5 Ml Bottle) 1 drop EYE- BOTH TID [facility] Calcium Carbonate (Calcium Carbonate 750 Mg Tab.Chew) 750 mg PO Q4H PRN PRN Reason: Heartburn Ceftriaxone Sodium (Ceftriaxone Sodium 1 Gm Vial) 1 gm IVPUSH Q24H [facility] Last Admin: 04/21/25 14:59 Dose: 1 gm Documented By: CHILO Dextrose (Dextrose 50 % 25 Gm/50 Ml Syringe) 25 gm IVPUSH Q15M PRN; Protocol PRN Reason: per Hypoglycemia Standing Ord. Docusate Sodium (Docusate Sodium 100 Mg Capsule) 100 mg PO BID [facility] Last Admin: 04/21/25 21:09 Dose: Not Given Documented By: ZAKIA Non-Admin Reason: Patient Refused Furosemide (Furosemide 20 Mg/2 Ml Vial) 20 mg IVPUSH BID@0800,1400 [facility]; Protocol Gabapentin (Gabapentin 100 Mg Capsule) 100 mg PO BID [facility] Glucose (Glucose Gel 15 Gm Gel..Gram.) 15 gm PO Q15M PRN; Protocol PRN Reason: per Hypoglycemia Standing Ord. Insulin Human Lispro (Insulin Lispro 100 Unit/Ml 3 Ml Vial) 0 unit SUBCUT QIDACHS [facility]; Protocol Last Admin: 04/21/25 21:08 Dose: Not Given Documented By: ZAKIA Non-Admin Reason: No Insulin Coverage Magnesium Hydroxide (Milk Of Magnesia 30 Ml Oral.Susp) 30 ml PO DAILY PRN PRN Reason: Constipation Melatonin (Melatonin 3 Mg Tablet) 6 mg PO BEDTIME PRN PRN Reason: Insomnia Metoprolol Tartrate (Metoprolol Tartrate 5 Mg/5 Ml Vial) 2.5 mg IVPUSH Q6H PRN; Protocol PRN Reason: Heart Rate >100 Ondansetron HCl (Ondansetron Hcl 4 Mg/2 Ml Vial) 4 mg IVPUSH Q8H PRN PRN Reason: Nausea and Vomiting Pantoprazole Sodium (Pantoprazole Sodium 40 Mg/10 Ml Vial) 40 mg IVPUSH DAILY@0630 [facility] Last Admin: 04/22/25 06:03 Dose: 40 mg Documented By: ZAKIA Polyethylene Glycol (Polyethylene Glycol 3350 17 Gm Powd.Pack) 17 gm PO DAILY PRN PRN Reason: Constipation Senna (Sennosides 8.6 Mg Tablet) 17.2 mg PO BEDTIME [facility] Last Admin: 04/21/25 21:10 Dose: Not Given Documented By: ZAKIA Non-Admin Reason: Patient Refused Sodium Biphosphate/Sodium Phosphate (Sodium Phosphate,[place]-Dibasic 133 Ml Enema) 118 ml [place] DAILY PRN PRN Reason: Constipation Sodium Chloride (0.9 % Sodium Chloride Flush 3 Ml Syringe) [facility] Admin: 04/22/25 00:13 Dose: 3 ml Documented By: ZAKIA Labs 04/22/25 06:38 04/22/25 06:38 Labs: Laboratory Results - last 24 hr 04/20/25 04/21/25 04/21/25 15:01 10:46 12:37 MCV MCH MCHC RDW Plt Count MPV Immature Gran % (Auto) Neut % (Auto) Lymph % (Auto) [place] % (Auto) Eos % (Auto) Baso % (Auto) Lymph # (Auto) [place] # (Auto) Eos # (Auto) Baso # (Auto) Abs Immat Gran (auto) Absolute Neuts (auto) Absolute Nucleated RBC Nucleated RBC % (auto) Anion Gap Estim Creat Clear Calc Estimated GFR POC Glucose 102 Random Glucose Calcium Phosphorus Magnesium Total Bilirubin AST ALT Alkaline Phosphatase Total Protein Albumin Random Vancomycin 17.3 Respiratory Panel [place] See Note Adenovirus (Rapid PCR) Not Detected B.pert (TEM-PCR) Not Detected B.parapertussis DNA PCR Not Detected C. pneumoniae DNA (PCR) Not Detected Coronavirus OC43 (PCR) Not Detected Coronavirus HKU1 (PCR) Not Detected Coronavirus 229E (PCR) Not Detected Coronavirus NL63 (PCR) Not Detected Human Metapneumovir PCR Not Detected Influenza A (RT-PCR) Not Detected Influenza A (H1) PCR Not Detected Influ A (H1/09) PCR Not Detected Influenza A (H3) PCR Not Detected Influenza B (RT-PCR) Not Detected M. pneumoniae (PCR) Not Detected Parainfluenza 1 (PCR) Not Detected Parainfluenza 2 (PCR) Not Detected Parainfluenza 3 (PCR) Not Detected Parainfluenza 4 (PCR) Not Detected RSV (PCR) Not Detected Entero/Rhino (PCR) Not Detected SARS-CoV-2 RNA (RT-PCR) Not Detected 04/21/25 04/21/25 04/22/25 16:29 21:05 06:38 MCV 84.4 D MCH 23.8 L MCHC 28.3 L RDW 21.1 H Plt Count 225 MPV 9.6 Immature Gran % (Auto) 0.4 Neut % (Auto) 83.8 H Lymph % (Auto) 8.3 L [place] % (Auto) 7.1 Eos % (Auto) 0.3 Baso % (Auto) 0.1 Lymph # (Auto) 0.9 L [place] # (Auto) 0.7 Eos # (Auto) 0.0 Baso # (Auto) 0.0 Abs Immat Gran (auto) 0.04 H Absolute Neuts (auto) 8.6 H Absolute Nucleated RBC 0.040 H Nucleated RBC % (auto) 0.4 H Anion Gap 13 Estim Creat Clear Calc 23.0 Estimated GFR 31 POC Glucose 82 97 Random Glucose 78 Calcium 9.6 Phosphorus 3.4 Magnesium 2.2 Total Bilirubin 0.6 AST 17 ALT < 6 Alkaline Phosphatase 83 Total Protein 6.3 L Albumin 2.9 L Random Vancomycin Respiratory Panel [place] Adenovirus (Rapid PCR) B.pert (TEM-PCR) B.parapertussis DNA PCR C. pneumoniae DNA (PCR) Coronavirus OC43 (PCR) Coronavirus HKU1 (PCR) Coronavirus 229E (PCR) Coronavirus NL63 (PCR) Human Metapneumovir PCR Influenza A (RT-PCR) Influenza A (H1) PCR Influ A () PCR Influenza A (H3) PCR Influenza B (RT-PCR) M. pneumoniae (PCR) Parainfluenza 1 (PCR) Parainfluenza 2 (PCR) Parainfluenza 3 (PCR) Parainfluenza 4 (PCR) RSV (PCR) Entero/Rhino (PCR) SARS-CoV-2 RNA (RT-PCR) 04/22/25 06:46 MCV MCH MCHC RDW Plt Count MPV Immature Gran % (Auto) Neut % (Auto) Lymph % (Auto) [place] % (Auto) Eos % (Auto) Baso % (Auto) Lymph # (Auto) [place] # (Auto) Eos # (Auto) Baso # (Auto) Abs Immat Gran (auto) Absolute Neuts (auto) Absolute Nucleated RBC Nucleated RBC % (auto) Anion Gap Estim Creat Clear Calc Estimated GFR POC Glucose 76 Random Glucose Calcium Phosphorus Magnesium Total Bilirubin AST ALT Alkaline Phosphatase Total Protein Albumin Random Vancomycin Respiratory Panel [place] Adenovirus (Rapid PCR) B.pert (TEM-PCR) B.parapertussis DNA PCR C. pneumoniae DNA (PCR) Coronavirus OC43 (PCR) Coronavirus HKU1 (PCR) Coronavirus 229E (PCR) Coronavirus NL63 (PCR) Human Metapneumovir PCR Influenza A (RT-PCR) Influenza A (H1) PCR Influ A () PCR Influenza A (H3) PCR Influenza B (RT-PCR) M. pneumoniae (PCR) Parainfluenza 1 (PCR) Parainfluenza 2 (PCR) Parainfluenza 3 (PCR) Parainfluenza 4 (PCR) RSV (PCR) Entero/Rhino (PCR) SARS-CoV-2 RNA (RT-PCR) Microbiology Microbiology Results: Microbiology 04/20/25 15:01 Blood Culture - Preliminary Blood - Venous No growth after 24 hours. 04/20/25 15:01 Blood Culture - Preliminary Blood - Venous No growth after 24 hours. 04/20/25 15:02 Urine Culture - Final Urine clean catch - Clean Catch Midstream Assessment and Plan (1) Acute respiratory failure with hypoxia: Status: Acute Plan Patient is an 89-year-old fdc resident with known dementia, medical history of COPD, acute on chronic hypoxic respiratory failure requiring 2 L at baseline, AFib without Eliquis given UGI be in prior admission, CKD stage 3, esophagitis, Schatzki's ring, esophagitis, gastritis, diverticulosis, internal hemorrhoids, AVM BIBA from her nursing facility for acute onset hypoxic read respiratory failure in the upper 80s requiring 10 L by face mask. Report last month showed that she had massive GI bleed requiring stopping Eliquis and required nearly 6 units transfusion. Pt likely has AHRF 2/2 decompensated AE HFrEF without inf etiology AHRF 2/2 decompensated AE HFrEF - sepsis can not be ruled out-resolved COPD on 2L o2 at baseline Afib not on Eliquis 2/2 massive GIB per pprior multidisciplinary mx prior recent admission Significant sepsis workup thus far unremarkable - hence will DC antibiotics and observe-she received a total of 3 days of antibiotics Fluids are limited and we are now having to diurese her aggressively given HFrEF and hypoxia and hypoxemia She appears to have her baseline blood pressure around 90/50 which she is at since admission the patient does not have any overt signs of sepsis however given her comorbidities, she may not be able to mount aggressive/appropriate response to sepsis Imaging -ve for acute IC pathology HFrEF AFib with RVR AFib not on Eliquis- 2/2 massive GIB per pprior multidisciplinary mx 2 weeks ago Spoke to the daughter Jaki who is the healthcare proxy. Per triage note the patient was noted to be hypoxic requiring nearly 4 L by nasal cannula in the ER she was noted to have required nearly 10 L via non-rebreather with good effect. She was noted to have HFrEF, increased bilateral opacities, left lower lobe pneumonia that appears to be forming, although no overt signs of sepsis (negative leukocytosis, no venous lactate, no elevation of inflammatory markers). We will treat AFib with RVR with metoprolol to maintain hemodynamic status Repeat TTE ordered BMP elevated K - now resolving Possible UTI Fajardo placed this admission- secondary to acute urinary retention CKD stage 3-baseline Patient unable to endorse symptoms however her UA appears to be positive Patient with medical comorbidities may not be able to express/mount an appropriate response and hence we are treating her with broad-spectrum antibiotics Fajardo is indicated as she is retaining and that could exacerbate her AMS/UTI or cause bacteremia hence it is indicated even though UA is positive Massive GI bleed 2 weeks ago requiring discontinuation of oral anticoagulants esophagitis, Schatzki's ring, esophagitis, gastritis, diverticulosis, internal hemorrhoids, AVM We will continue to monitor CBC daily DVT with SCD boots given GI bleed Prognosis guarded If the patient were to decompensate-please reach out to the healthcare proxy Jaki prior to escalating care Quality Stroke Does the patient have a stroke diagnosis?: No VTE Prior VTE?: No VTE Risk Level:: Medical - moderate - high VTE Device Contraindication: N/A - Device Ordered VTE Drug Contraindication: Treatment Not Tolerated
[2025-04-22] MEDS: Aspirin Enteric Coated 81 MG TABLET.DR PO (09:50)
[2025-04-22] MEDS: Furosemide 20 MG/2 ML VIAL IVPUSH ×2 (09:50→16:33)
[2025-04-22 10:55] LABS: Glucose, Whole Blood 90 mg/dL (60-115)
[2025-04-22] MEDS: Brimonidine Tartrate 0.2% Oph 5 ML BOTTLE 1 DROP EYE-BOTH ×3 (12:09→21:38)
[2025-04-22 16:43] LABS: Glucose, Whole Blood 92 mg/dL (60-115)
[2025-04-22 21:09] LABS: Glucose, Whole Blood 86 mg/dL (60-115)
[2025-04-23 02:58] VITALS: BP 110/62; PULSE 73; RESP 18; TEMP 36.8; O2SAT 97
[2025-04-23 07:23] LABS: Glucose, Whole Blood 79 mg/dL (60-115)
[2025-04-23 07:55] VITALS: BP 108/55; PULSE 90; RESP 16; TEMP 36.8; O2SAT 94
[2025-04-23] MEDS: 0.9 % Sodium Chloride Flush 3 ML SYRINGE IVFLUSH (09:45)
[2025-04-23] MEDS: Aspirin Enteric Coated 81 MG TABLET.DR PO (09:45)
[2025-04-23 09:46] VITALS: BP 156/65
[2025-04-23] MEDS: Furosemide 20 MG/2 ML VIAL IVPUSH (09:46)
--- NOTE | 2025-04-23 09:53 | MHC.CM.PN ---
PT W/HEART FAILURE/AFIB W/RVR/UTI/PNA, PT REMAINS ON IV LASIX BID AND IV METOPROLOL PRN FOR RATE CONTROL, PT NOT YET MEDICALLY CLEARED FOR DC, PLAN FOR PT TO RETURN TO LTC AT [facility] ONCE MEDICALLY CLEARED, CM WILL CONT TO FOLLOW DC NEEDS.
[2025-04-23 09:59] LABS: Hematocrit 32.6 % (37.0-47.0); Hemoglobin 9.1 g/dl (12.0-16.0); Imm Gran Abs Auto 0.07 X10*3/uL (0.00-0.03); Imm Gran Pct Auto 0.9 % (0.0-0.4); Lymphocytes Absolute Auto 0.9 X10*3/uL (1.2-4.9); Mean Corpuscular HGB Conc 27.9 g/dl (31.0-35.0); Mean Corpuscular Hemoglobin 23.5 pg (27.0-33.0); Mean Corpuscular Volume 84.2 fL (80.0-98.0); NRBC Abs Auto 0.000 X10*3/uL (0.0-0.012); NRBC Pct Auto 0.0 /100WBC (0.0-0.2); Platelet Count 154 X10*3/uL (160-400); Red Blood Count 3.87 X10*6/uL (4.20-5.50); White Blood Count 7.4 X10*3/uL (4.8-10.8)
[2025-04-23 10:25] LABS: Alanine Aminotransferase < 6 U/L (0-31); Albumin Level 2.7 g/dL (3.5-5.0); Alkaline Phosphatase 71 U/L (39-117); Anion Gap 14 (12-20); Aspartate Amino Transferase 15 U/L (5-31); Blood Urea Nitrogen 47 mg/dL (9-16); Calcium 9.4 mg/dL (8.4-10.2); Carbon Dioxide 34 mmol/L (22-29); Chloride 100 mmol/L (96-108); Creatinine Clr Calc Pharmacy 25.6; Estimated Glomerular Filt Rate 36; Magnesium 2.2 mg/dL (1.6-2.6); Potassium 3.9 mmol/L (3.3-5.1); Sodium 144 mmol/L (135-145); Total Protein 5.9 g/dL (6.5-8.0)
[2025-04-23 10:37] LABS: MANUAL DIFF FLAG NO
--- NOTE | 2025-04-23 10:38 | MHC.CM.PN ---
ANTIC PT WILL BE MEDICALLY CLEARED FOR DC TO RETURN TO LTC AT [facility] PENDING LABS, CM ATTEMPTED TO CONTACT PT'S DTR/HCP EMILI AT # ON FILE, NO ANSWER AND DETAILED MESSAGE LEFT, [facility] FOR TRANSPORT AT 2PM.
[2025-04-23 11:48] LABS: Glucose, Whole Blood 102 mg/dL (60-115)
[2025-04-23 12:00] VITALS: BP 112/54; PULSE 102; RESP 16; TEMP 36.8; O2SAT 96
[2025-04-23] MEDS: Brimonidine Tartrate 0.2% Oph 5 ML BOTTLE 1 DROP EYE-BOTH (12:15)
--- NOTE | 2025-04-23 12:43 | P.DS_ITS ---
DS: Providers Provider Date of Service: 04/23/25 Date of admission: 04/20/25 13:41 Date of discharge: 04/23/25 Primary care physician: Jessica Allen MD Consults: 04/21/25 03:01 Consult to Wound Care Routine Reason for consultation: bruise DS: Diagnosis Discharge Diagnosis (1) Acute respiratory failure with hypoxia: Status: Acute DS: Summary Hospital Course Hospital Course: AHRF 2/2 decompensated AE HFrEF - sepsis can not be ruled out-resolved COPD on 2L o2 at baseline Afib not on Eliquis 2/2 massive GIB per pprior multidisciplinary mx prior recent admission Patient is an 89-year-old care home resident with known dementia, medical history of COPD, acute on chronic hypoxic respiratory failure requiring 2 L at baseline, AFib without Eliquis given UGI be in prior admission, CKD stage 3, esophagitis, Schatzki's ring, esophagitis, gastritis, diverticulosis, internal hemorrhoids, AVM BIBA from her nursing facility for acute onset hypoxic read respiratory failure in the upper 80s requiring 10 L by face mask. Report last month showed that she had massive GI bleed requiring stopping Eliquis and required nearly 6 units transfusion. Pt likely has AHRF 2/2 decompensated AE HFrEF without overt S/S of inf etiology. Although the patient did not exhibit overt signs of sepsis, she was treated with 3 days of broad-spectrum antibiotics with good effect. We just up titrated her diuretics to Lasix 40 IV b.i.d. while inpatient and at the time of discharge switched her to 40 p.o. b.i.d. instead of OD home dose and she appears to be tolerating this well. She was hemodynamically stable at the time of this discharge. HFrEF AFib with RVR AFib not on Eliquis- 2/2 massive GIB per pprior multidisciplinary mx 2 weeks ago Spoke to the daughter Jaki who is the healthcare proxy. Per triage note the patient was noted to be hypoxic requiring nearly 4 L by nasal cannula in the ER she was noted to have required nearly 10 L via non-rebreather with good effect. She was noted to have HFrEF, increased bilateral opacities, left lower lobe pneumonia that appears to be forming, although no overt signs of sepsis (nega tive leukocytosis, no venous lactate, no elevation of inflammatory markers). We will treat AFib with RVR with metoprolol to maintain hemodynamic status Repeat TTE ordered Hyperkalemia Likely in the setting of current sepsis, inability to take diuretics at the time of admission Possible UTI Fajardo placed this admission- secondary to acute urinary retention CKD stage 3-baseline Patient unable to endorse symptoms however her UA appears to be positive Patient with medical comorbidities may not be able to express/mount an appropriate response and hence we are treating her with broad-spectrum antibiotics Fajardo was placed during this admission for acute urinary retention. Massive GI bleed 2 weeks ago requiring discontinuation of oral anticoagulants esophagitis, Schatzki's ring, esophagitis, gastritis, diverticulosis, internal hemorrhoids, AVM We monitored CBC daily stable DVT with SCD boots given GI bleed Time spent discussing smoking cessation with patient: more than 10 minutes Time Attestation Discharge Coordination Time (in mins): 35 minute Quality: Safe Use of Opioids Does Pt have an Active Cancer Diagnosis on the Problem List?: No Quality: Stroke Does the patient have a stroke diagnosis?: No Physical Exam 2 Vital Signs: Vital Signs: Last Vital Signs Temp 98.2 F 04/23/25 12:00 Pulse 102 H 04/23/25 12:00 Resp 16 04/23/25 12:00 BP 112/54 L 04/23/25 12:00 Pulse Ox 96 04/23/25 12:00 O2 Del Method Room Air 04/23/25 12:00 O2 Flow Rate 2 04/23/25 02:58 Oxygen Flow Rate 4 04/20/25 11:57 BMI result Body Mass Index 29.4 DS: Data Data Completed and Pending Completed studies during hospitalization [Text1]: Procedures Assistance with Respiratory Ventilation, Less than 24 Consecutive Hours, Continuous Positive Airway Pressure (08/27/24) Destruction of Cecum, Via Natural or Artificial Opening Endoscopic (01/15/25) Excision of Ascending Colon, Via Natural or Artificial Opening Endoscopic, Diagnostic (01/15/25) Excision of Rectum, Via Natural or Artificial Opening Endoscopic, Diagnostic (01/15/25) Excision of Sigmoid Colon, Via Natural or Artificial Opening Endoscopic, Diagnostic (01/15/25) Extirpation of Matter from Left Lower Leg Subcutaneous Tissue and Fascia, Open Approach (03/27/22) Inspection of Upper Intestinal Tract, Via Natural or Artificial Opening Endoscopic (01/15/25) Introduction of Remdesivir Anti-infective into Peripheral Vein, Percutaneous Approach, [employer] (08/19/23) Introduction of Vasopressor into Peripheral Vein, Percutaneous Approach (12/27/24) Repair Left Upper Leg Tendon, Open Approach (03/27/22) Replacement of Left Knee Joint with Synthetic Substitute, Uncemented, Open Approach (02/06/22) Reposition Left Patella with Internal Fixation Device, Open Approach (03/27/22) Transfusion of Nonautologous Red Blood Cells into Peripheral Vein, Percutaneous Approach (03/23/25) Labs on day of discharge: Laboratory Results - last 24 hr 04/22/25 04/22/25 04/23/25 16:37 21:06 07:20 WBC RBC Hgb Hct MCV MCH MCHC RDW Plt Count MPV Immature Gran % (Auto) Neut % (Auto) Lymph % (Auto) [place] % (Auto) Eos % (Auto) Baso % (Auto) Lymph # (Auto) [place] # (Auto) Eos # (Auto) Baso # (Auto) Abs Immat Gran (auto) Absolute Neuts (auto) Absolute Nucleated RBC Nucleated RBC % (auto) Sodium Potassium Chloride Carbon Dioxide Anion Gap BUN Creatinine Estim Creat Clear Calc Estimated GFR POC Glucose 92 86 79 Random Glucose Calcium Phosphorus Magnesium Total Bilirubin AST ALT Alkaline Phosphatase Total Protein Albumin 04/23/25 04/23/25 08:53 11:26 WBC 7.4 RBC 3.87 L Hgb 9.1 L Hct 32.6 L MCV 84.2 MCH 23.5 L MCHC 27.9 L RDW 20.8 H Plt Count 154 L D MPV 9.3 L Immature Gran % (Auto) 0.9 H Neut % (Auto) 75.9 H Lymph % (Auto) 12.1 L [place] % (Auto) 6.9 Eos % (Auto) 3.9 Baso % (Auto) 0.3 Lymph # (Auto) 0.9 L [place] # (Auto) 0.5 Eos # (Auto) 0.3 Baso # (Auto) 0.0 Abs Immat Gran (auto) 0.07 H Absolute Neuts (auto) 5.6 Absolute Nucleated RBC 0.000 Nucleated RBC % (auto) 0.0 Sodium 144 Potassium 3.9 Chloride 100 Carbon Dioxide 34 H Anion Gap 14 BUN 47 H Creatinine 1.39 Estim Creat Clear Calc 25.6 Estimated GFR 36 POC Glucose 102 Random Glucose 69 Calcium 9.4 Phosphorus 3.5 Magnesium 2.2 Total Bilirubin 0.6 AST 15 ALT < 6 Alkaline Phosphatase 71 Total Protein 5.9 L Albumin 2.7 L Preliminary micro results at discharge 04/20/25 15:01 Blood Culture - Preliminary Blood - Venous No growth after 48 hours. 04/20/25 15:01 Blood Culture - Preliminary Blood - Venous No growth after 48 hours. Discharge Plan Discharge Anticipated Discharge Date/Time: 04/23/25 14:13 Patient Disposition: Xfer LTC Discharge Diagnosis: Acute hypoxic respiratory failure due to AFib with RVR Referrals: [facility] [Outside] - 1 Day Referral Note: RESUMPTION OF LTC Jessica Allen MD [Primary Care Provider, Internal Medicine] - 1 Week Discharge Medications: New furosemide 40 mg Tablet 40 mg PO BID@0900,1800 30 Days Qty: 60 0RF Protocol: Hold for SBP< HOLD for SBP < : 90 Continued (DME) Raised Toliet Seat with handels See Rx Instructions .ROUTE .MEDSUPPLY Qty: 1 0RF Rx Instructions: As directed Osteoarthritis (DME) blood pressure monitor [Blood Pressure Kit] Kit See Rx Instructions .Route Qty: 1 0RF Rx Instructions: As directed (DME) ROLLATOR See Rx Instructions .Route .MEDSUPPLY Qty: 1 0RF Rx Instructions: As directed (DME) Orthpedic Shoes See Rx Instructions .Route .MEDSUPPLY Qty: 1 0RF Rx Instructions: As directed (DME) Depend Underwear For Women XL Misc See Rx Instructions .Route Qty: 68 0RF Rx Instructions: To be changed 6 to 8 times a day due to overactive bladder. (DME) adult pull ups/ Extra large XL See Rx Instructions .Route .MEDSUPPLY Qty: 1 3RF Rx Instructions: As directed (DME) wipes See Rx Instructions .Route .MEDSUPPLY Qty: 5 3RF Rx Instructions: As directed (DME) Portable ramp See Rx Instructions .Route .MEDSUPPLY Qty: 1 0RF Rx Instructions: As directed (DME) wheel chair See Rx Instructions .Route .MEDSUPPLY Qty: 1 0RF Rx Instructions: As directed Gemtesa 75 mg tablet 75 mg PO DAILY Qty: 90 0RF magnesium oxide 400 mg (241.3 mg magnesium) Tablet 400 mg PO DAILY Qty: 90 0RF rosuvastatin 20 mg tablet 20 mg PO BEDTIME acetaminophen 325 mg Tablet 975 mg PO TID PRN (Reason: Pain) magnesium hydroxide [Milk of Magnesia] 400 mg/5 mL Suspension 30 ml PO DAILY PRN (Reason: Constipation) Rx Instructions: For no BM in 3 days Fleet Enema 19-7 gram/118 mL Enema 118 ml [place] DAILY PRN (Reason: Constipation) Rx Instructions: If Dulcolax supp. not effective pantoprazole 40 mg tablet,delayed release (DR/EC) 40 mg PO DAILY@0630 metoprolol succinate 25 mg tablet extended release 24 hr 25 mg PO DAILY Protocol: Hold for SBP/HR < HOLD for SBP < : 90 HOLD for HR < : 60 melatonin 3 mg Tablet 3 mg PO BEDTIME phenazopyridine [Pyridium] 100 mg Tablet 100 mg PO TID PRN (Reason: Bladder pain/discomfort) bisacodyl 10 mg Suppository 10 mg [place] DAILY PRN (Reason: Constipation) Rx Instructions: If MoM ineffective. diclofenac sodium 1 % gel 4 g topical QID PRN (Reason: Pain) potassium chloride 10 mEq Tablet Extended Release 20 meq PO DAILY aspirin 81 mg capsule 81 mg PO DAILY Qty: 1 0RF ascorbic acid (vitamin C) [Vitamin C] 500 mg Tablet 500 mg PO DAILY gabapentin 100 mg capsule 100 mg PO BID (DME) RECLINER LIFT CHAIR RECLINER LIFT CHAIR See Rx Instructions .Route .MEDSUPPLY Qty: 1 0RF Rx Instructions: use as directed; brimonidine 0.2 % drops 1 drp ophthalmic (eye) TID Rx Instructions: both eyes Discontinued furosemide 40 mg tablet 40 mg PO DAILY Qty: 30 2RF Protocol: Hold for SBP< HOLD for SBP < : 90 Discharge Orders: Discharge Order (Routine); Ordered 04/23/25 Ordered By: Karen Medel Diet: Low salt diet Activity on Discharge: As tolerated Stand Alone Forms: Patient Portal Discharge page Print Language: Malaysian Care Plan Goals: Maintenance of heart failure Health Concerns: See above Plan of Treatment: See above Assessment: See above
--- NOTE | 2025-04-23 14:00 | MHC.SL.SWA ---
Speech Pathologist Impression: Risk of Aspiration, Oral Phase Dysphagia Dysphasia Diet Status: Liquid Consistency and Strategies for Safe Swallow: Liquid Intake Recommendation: Thin Liquid Intake Strategies: Small Sips Solid Food Consistency: Dietary Recommendations: Chopped/Advanced (NDD3) Additional Modifications to Solid Foods: Patient tolerating diet CHOPPED/ADVANCED (NDD3) and THIN liquids, pills CRUSHED in PUREE. Please re-refer with any changes or further concern. Oral Medication Intake: Crushed with Puree Please contact the pharmacy regarding appropriate crushable or liquid drug formulations that are available whenever modified delivery is recommended. Compensatory Strategies and Precautions to be Taken for Safe Swallow: Sitting Upright (90 deg) Small Bites and Sips Alternate Liquids/Solids Rate of Ingestion Change Supervision While Eating and Drinking for Safe Swallow: Direct Supervision (1:1) Foods to Avoid: Tough, difficult to chew solids, too large pieces of food. Swallowing Recommended Treatments: Recommendation for Speech: Inpatient Speech Therapy Comment: Patient presents with swallow mostly WFL, has mild oral dysphagia with slow rate of mastication of solids. Patient also with hx esophagitis, Shatski's ring, may have underlying esophogeal dysphagia, though no symptoms of this was observed today. Recommend start diet of CHOPPED/ADVANCED (NDD3) with THIN liquids, pills crushed in puree (secondary to RN's report of patient spitting out pills when given whole). AREA SALES MANAGER to f/u 1-2x for toleration of diet. HECTOR HENDERSON notified of recommendation by secure text, RN in person. Frequency/Duration: Date Range for Service Req: Timeline to reassess: Tripe Finisher Clinican/Clinical Fellow: No Supervisory Statement: I have reviewed and agree with the student/clinical fellow's documentation: N/A Speech Language Pathologist: Deja Szymanski M.A., CCC-AREA SALES MANAGER
--- NOTE | 2025-04-23 14:02 | MHC.SL.SWA ---
Speech Pathologist Impression: Oral Phase Dysphagia Dysphasia Diet Status:No Change Liquid Consistency and Strategies for Safe Swallow: Liquid Intake Recommendation: Thin Liquid Intake Strategies: Small Sips Solid Food Consistency: Dietary Recommendations: Chopped/Advanced (NDD3) Additional Modifications to Solid Foods: Patient tolerating diet CHOPPED/ADVANCED (NDD3) and THIN liquids, pills CRUSHED in PUREE. Please re-refer with any changes or further concern. Oral Medication Intake: Crushed with Puree Please contact the pharmacy regarding appropriate crushable or liquid drug formulations that are available whenever modified delivery is recommended. Compensatory Strategies and Precautions to be Taken for Safe Swallow: Sitting Upright (90 deg) Small Bites and Sips Alternate Liquids/Solids Rate of Ingestion Change Supervision While Eating and Drinking for Safe Swallow: Direct Supervision (1:1) Foods to Avoid: Tough, difficult to chew solids, too large pieces of food. Recommendation for Speech: D/C Patient Advocate Clinican/Clinical Fellow: No Supervisory Statement: I have reviewed and agree with the student/clinical fellow's documentation: N/A Speech Language Pathologist: Deja Szymanski M.A., CCC-[employer] AND [employer]ICY PROFESSOR
[2025-04-23 15:48] LABS: Glucose, Whole Blood 172 mg/dL (60-115)
[2025-04-23 16:00] VITALS: BP 94/55; PULSE 77; RESP 18; TEMP 36.6; O2SAT 95
--- NOTE | 2025-05-31 20:00 | P.CDIM_ITS ---
PROVIDER RESPONSE TEXT: To clarify, the appropriate diagnosis supported by the clinical indicators: Paroxysmal atrial fibrillation QUERY TEXT: PHYSICIAN'S DOCUMENTATION REQUEST Date of Query: 04/21/2025 08:17 AM EDT Patient Name: Jaki Kulkarni Admit Date: 04/20/2025 Dear Karen Medel MD, A review of the medical record indicates additional documentation may be needed. Please review below and update the documentation accordingly. Clinical Indicators: H&P 04/20/25 - Afib with RVR Not on Eliquis Will treat Afib with RVR with metoprolol to maintain hemodynamic status. Repeat TTE ordered. If possible, please provide further specificity regarding atrial fibrillation, such as: Paroxysmal atrial fibrillation Persistent atrial fibrillation Long lasting persistent atrial fibrillation Permanent atrial fibrillation Other (explain) Clinically unable to determine (explain) Thank you, Lana Kimbrough, CCS, CDIS Use of terms such as suspected, likely, concern for, or probable (associated with a specific diagnosis that is being evaluated, monitored, or treated as if it exists) are acceptable and can be coded in the inpatient setting, when documented at the time of discharge. Please use your independent medical judgment in providing your response. THIS QUERY IS PART OF THE PERMANENT MEDICAL RECORD
== END 2025-04-23 16:05 | DRG 871 ==
LOC: HO.ED 13:25 → HO.EDOVER 13:44 → HO.IMC 04-21 01:39
PROVIDERS: Admitting Provider Student in an Organized Health Care Education/Training Program; Emergency Provider Emergency Medicine; PCP Family Medicine Geriatric Medicine; Visit Provider Student in an Organized Health Care Education/Training Program
DX: A41.9 Sepsis, unspecified organism (principal); I50.23 Acute on chronic systolic (congestive) heart failure; J96.21 Acute and chronic respiratory failure with hypoxia; J44.0 Chronic obstructive pulmonary disease with (acute) lower respiratory infection; N39.0 Urinary tract infection, site not specified; F03.90 Unspecified dementia, unspecified severity, without behavioral disturbance, psychotic disturbance, mood disturbance, and anxiety; I25.10 Atherosclerotic heart disease of native coronary artery without angina pectoris; D50.9 Iron deficiency anemia, unspecified; I48.0 Paroxysmal atrial fibrillation; R33.9 Retention of urine, unspecified; E87.5 Hyperkalemia; Z20.822 Contact with and (suspected) exposure to COVID-19; Z87.891 Personal history of nicotine dependence; Z99.81 Dependence on supplemental oxygen; Z79.82 Long term (current) use of aspirin; Z79.899 Other long term (current) drug therapy
CPT/HCPCS: 36415; 70450; 71045; 71250; 80048; 80053; 80202; 81001; 82803; 82947; 83605; 83735; 83880; 83935; 84100; 84134; 84300; 84443; 84484; 85025; 85610; 86140; 87040; 87086; 87633; 87635; 92526; 92610; 93005; 93306; 94640; 99285; J0616; J0696; J1938; J2470; J2543; J2919; J3374; Q9957

== ENCOUNTER → 2025-04-20 12:06 | Outpatient (BNV) | payer MEDICARE, MEDICAID, SELFPAY | PROVIDERS: Admitting Provider Student in an Organized Health Care Education/Training Program; Emergency Provider Emergency Medicine; PCP Family Medicine Geriatric Medicine; Visit Provider Internal Medicine Cardiovascular Disease | DX: I48.91 Unspecified atrial fibrillation (principal); I21.09 ST elevation (STEMI) myocardial infarction involving other coronary artery of anterior wall | CPT/HCPCS: 93010 ==

== ENCOUNTER → 2025-04-20 12:06 | Outpatient (BNV) | payer MEDICARE, MEDICAID, SELFPAY | PROVIDERS: Admitting Provider Student in an Organized Health Care Education/Training Program; Emergency Provider Emergency Medicine; PCP Family Medicine Geriatric Medicine; Visit Provider Radiology Diagnostic Radiology | DX: J81.0 Acute pulmonary edema (principal); R41.82 Altered mental status, unspecified; R06.00 Dyspnea, unspecified | CPT/HCPCS: 70450; 71045; 71250 ==

== ENCOUNTER 2025-04-20 13:41 | Outpatient (BNV) | payer MEDICARE, MEDICAID, SELFPAY | END 2025-04-21 07:00 | PROVIDERS: Admitting Provider Student in an Organized Health Care Education/Training Program; Emergency Provider Emergency Medicine; PCP Family Medicine Geriatric Medicine; Visit Provider Internal Medicine Cardiovascular Disease | DX: I27.20 Pulmonary hypertension, unspecified (principal); I48.91 Unspecified atrial fibrillation; I36.1 Nonrheumatic tricuspid (valve) insufficiency | CPT/HCPCS: 93306 ==

== ENCOUNTER → 2025-04-20 13:41 | Outpatient (BNV) | payer MEDICARE, MEDICAID, SELFPAY | PROVIDERS: Admitting Provider Student in an Organized Health Care Education/Training Program; Emergency Provider Emergency Medicine; PCP Family Medicine Geriatric Medicine; Visit Provider Student in an Organized Health Care Education/Training Program | DX: J96.01 Acute respiratory failure with hypoxia (principal) | CPT/HCPCS: 99223; 99232; 99239 ==